=== PATIENT | female | born 1935 | race Caucasian/White ===

== ENCOUNTER → 2016-07-12 | Outpatient (CLI) | payer OTHER ==
[~2016-07-12] MED LIST: AMOX500T PO; ATOR-26 PO; CZR50 PO; GFNSR600 PO; GLIP2.5T11 PO; LSX40 PO; METF-384 PO; NITR0.4S SL; POTA-331 PO; TPRSR/100 PO; VNTHFA/IN INH
[2016-07-12 13:08] LABS: BLOOD UREA NITROGEN 17 mg/dl (7-18); BUN/CREATININE RATIO 17.1 (10-20); CALCIUM 9.2 mg/dl (8.5-10.1); CARBON DIOXIDE 27 mmol/L (21-32); CHLORIDE 105 mmol/L (98-107); CHOLESTEROL 130 mg/dl (0-200); CREATININE 0.97 mg/dl (0.60-1.20); GLUCOSE 138 mg/dl (70-99); POTASSIUM 4.3 mmol/L (3.5-5.1); SODIUM 143 mmol/L (136-145)
[2016-07-12 13:12] LABS: CHOLESTEROL/HDL RATIO 1.9; HDL CHOLESTEROL 69 mg/dl; TRIGLYCERIDES 61 mg/dl (0-150); VERY LOW DENSITY LIPOPROT CALC 12 mg/dl
[2016-07-12 13:17] LABS: ESTIMATED AVERAGE GLUCOSE 137 mg/dl; HA1C FLAG Normal (Normal)
== END | disposition home or self-care (01) ==
LOC: C.LABSPEC 12:29
PROVIDERS: ATTEND Internal Medicine
DX: E11.9 Type 2 diabetes mellitus without complications (principal); I25.10 Atherosclerotic heart disease of native coronary artery without angina pectoris; E78.5 Hyperlipidemia, unspecified; I10 Essential (primary) hypertension

== ENCOUNTER → 2016-11-08 | Outpatient (CLI) | payer OTHER ==
[2016-11-08 14:01] LABS: BASO % 0.7 %; BASO ABS # 0.05 K/uL (0-0.2); COMPLETE YES; EOS % 4.9 %; HEMATOCRIT 47.6 % (37-47); LYMPH % 32.8 %; MEAN CELL VOLUME 96.4 fL (80-100); MEAN CORPUSCULAR HEMOGLOBIN 29.6 pg (25-34); MEAN CORPUSCULAR HGB CONC 30.7 g/dl (32-36); MONO % 6.7 %; NEUT % 54.9 %; PLATELET COUNT 149 K/uL (130-400); RED BLOOD COUNT 4.94 M/uL (4.2-5.4)
[2016-11-08 14:16] LABS: ESTIMATED AVERAGE GLUCOSE 137 mg/dl; HA1C FLAG Normal (Normal)
[2016-11-08 15:09] LABS: ALKALINE PHOSPHATASE 151 U/L (45-117); ALT/SGPT 25 U/L (12-78); AST/SGOT 18 U/L (15-37); BLOOD UREA NITROGEN 19 mg/dl (7-18); BUN/CREATININE RATIO 19.3 (10-20); CALCIUM 8.9 mg/dl (8.5-10.1); CARBON DIOXIDE 32 mmol/L (21-32); CHLORIDE 107 mmol/L (98-107); GLUCOSE 108 mg/dl (70-99); HDL CHOLESTEROL 52 mg/dl; POTASSIUM 4.5 mmol/L (3.5-5.1); SODIUM 146 mmol/L (136-145)
[2016-11-08 15:12] LABS: ALB/GLOB RATIO 1.1 (0.9-2); CHOLESTEROL 130 mg/dl (0-200); CHOLESTEROL/HDL RATIO 2.5; TRIGLYCERIDES 118 mg/dl (0-150); VERY LOW DENSITY LIPOPROT CALC 24 mg/dl
== END | disposition home or self-care (01) ==
LOC: C.LABSPEC 12:13
PROVIDERS: ATTEND Internal Medicine
DX: I25.10 Atherosclerotic heart disease of native coronary artery without angina pectoris (principal); I10 Essential (primary) hypertension; E78.5 Hyperlipidemia, unspecified; E11.9 Type 2 diabetes mellitus without complications

== ENCOUNTER 2017-01-10 11:44 | Inpatient (IN) | payer OTHER ==
[~2017-01-10] VITALS: Ht 160 cm; Wt 81.8 kg
[~2017-01-10 11:44] MED LIST changes: -AMOX500T PO; -GFNSR600 PO; -LSX40 PO; -VNTHFA/IN INH
[2017-01-10] MEDS ORDERED: NITROGLYCERIN 0.4 MG SL PER TAB CHARGE SL PRN (12:00)
[2017-01-10] MEDS ORDERED: ACETAMINOPHEN 500 MG TAB PO PRN (12:00)
[2017-01-10] MEDS ORDERED: GLUCOSE 40% GEL 15 GM TUBE PO PRN (12:30)
[2017-01-10] MEDS ORDERED: FUROSEMIDE INJ 40 MG in SYRINGE 0 ML IV ONE (12:30)
[2017-01-10] MEDS ORDERED: GLUCAGON FOR INJ 1 MG VIAL SQ PRN (12:30)
[2017-01-10] MEDS ORDERED: DEXTROSE 50% 50 ML SYR IV PRN (12:30)
[2017-01-10] MEDS ORDERED: GLUCOSE 10 TABS/TUBE PO PRN (12:30)
[2017-01-10] MEDS ORDERED: CEFTRIAXONE SOD INJ 2,000 MG in DEXTROSE 5% 50ML 50 ML IV ONE (12:30)
[2017-01-10] MEDS ORDERED: AZITHROMYCIN IV 500 MG in DEXTROSE 5% 250ML 250 ML IV ONE (13:00)
[2017-01-10 13:09] VITALS: BP 137/85; PULSE 81; TEMP 36.6; O2SAT 90; Ht 160 cm; Wt 81.8 kg
[2017-01-10 13:17] VITALS: BP 137/85; PULSE 81; TEMP 36.6; O2SAT 90
[2017-01-10 13:22] LABS: MEAN CELL VOLUME 94.1 fL (80-100); MEAN CORPUSCULAR HEMOGLOBIN 30.5 pg (25-34); MEAN PLATELET VOLUME 11.1 fL (7.4-10.4); PLATELET COUNT 114 K/uL (130-400); RED BLOOD COUNT 4.89 M/uL (4.2-5.4); WHITE BLOOD COUNT 9.12 K/uL (4.8-10.8)
[2017-01-10 13:34] LABS: MEAN CORPUSCULAR HGB CONC 32.4 g/dl (32-36)
[2017-01-10 13:40] LABS: BUN/CREATININE RATIO 20.9 (10-20); CALCIUM 9.1 mg/dl (8.5-10.1); POTASSIUM 4.2 mmol/L (3.5-5.1)
[2017-01-10 13:52] LABS: ALB/GLOB RATIO 1.2 (0.9-2); THYROID STIMULATING HORMONE 0.816 uIu/ml (0.300-4.500)
--- NOTE | 2017-01-10 14:27 | DIAGNOSTIC IMAGING REPORT ---
CHEST 2 VIEWS ROUTINE HISTORY: 81 years-old Female BRONCHOPNEUMONITIS COMPARISON: Portable chest radiograph 06/25/2014 TECHNIQUE: PA and lateral views of the chest. FINDINGS: Cardiac silhouette is again enlarged. There is atherosclerosis of the aorta. No pneumothorax, pleural effusion or evidence of overt pulmonary edema. Hazy bibasilar retrocardiac opacities are seen with areas of bronchial wall thickening. Degenerative changes are seen within the shoulders. Upper abdominal structures are unremarkable. IMPRESSION: 1. Cardiomegaly without overt pulmonary edema. 2. Hazy bibasilar opacities suggest atelectasis or chronic parenchymal changes with developing pneumonia also in the differential. No lobar airspace consolidation. The above report was generated using voice recognition software. It may contain grammatical, syntax or spelling errors. Electronically signed by: Dionisio Tenorio M.D. 01/10/2017 2:25 PM Dictated Date/Time: 01/10/2017 2:24 PM
[2017-01-10] MEDS: LEVALBUTEROL 1.25MG/3ML NEB INH SCH ×3 (15:00→18:53)
[2017-01-10 16:00] VITALS: O2SAT 90
[2017-01-10] MEDS: INSULIN ASPART 100 UNITS/ML 3 ML PEN SC SCH ×2 (16:30→20:42)
[2017-01-10 16:59] VITALS: BP 143/84; PULSE 72; TEMP 36.7; O2SAT 90
[2017-01-10] MEDS: FUROSEMIDE INJ 40 MG in SYRINGE 0 ML IV SCH (17:11)
--- NOTE | 2017-01-10 17:12 | History and Physical ---
History & Physical Date of Service Jan 10, 2017. History & Physical ADMISSION DATE: 01/10/2017 I just would like to point out that there is some confusion about the patient's last name. She has 2 records in the hospital one with a last name Bradly Boswell and the other one under [facility].Since 2009 her last name on her records in the office is Bradly. The same name is on her insurance card. CHIEF COMPLAINT: 81-year-old female admitted directly from my office with shortness of breath and bronchopneumonitis and suspected congestive heart failure. PRESENT ILLNESS: Patient with multiple medical problems including coronary artery disease. She is status post stenting of the mid LAD and OM one in 2012 and also stenting of her left main artery in 2014. Both times were done at [facility]. She also has arterial hypertension, hyperlipidemia, type 2 diabetes mellitus, chronic obstructive pulmonary disease, chronic respiratory failure and she uses oxygen at home at night only. She is using 2-3 L per minute. At one time she also required oxygen during the day. Patient was seen in the office today complaining of shortness of breath with cough and purulent sputum. She has not been feeling well for at least the last 2 weeks. Her symptoms have been progressing. She was more dyspneic. She did not have any fever or any chills. No earache or sore throat. No neck pain. No chest pain. She is dyspneic with minimal activity. She was producing thick yellow and green sputum. No hemoptysis. No nausea or vomiting. No diarrhea. No problem urinating. No pain in her back or extremities. Her oxygen saturation at rest in the office was 90%. She walked for only about 15 feet. I rechecked her oxygen saturation and it was down to 85%. Arrangements were made for admission directly from the office. PAST MEDICAL HISTORY: 1. Arterial hypertension. Long-standing. Treated. 2. She is a 2 para 2 3. Coronary artery disease. First diagnosed in 2002. She had a cardiac catheterization at [facility]. She had 80% stenosis of the mid LAD and 80% stenosis of the large marginal artery and total occlusion of her right coronary artery. She had 2 stents placed in her mid LAD and a large marginal. In June of 2014 she was admitted with acute congestive heart failure. She had a cardiac catheterization done here her. She had a 70% stenosis of her left main artery. Her mid left anterior descending artery stent was patent. She was transferred to [facility]. She had stent been off her left main artery stenosis. The stenosis was reduced to 15%. Since then she has done quite well. 4. Type 2 diabetes mellitus. On oral hypoglycemics. Well controlled. Her hemoglobin A1c in October was 6.4%. 5. Hyperlipidemia. Long-standing. Treated and controlled. 6. Chronic obstructive Comite disease. She smoked most of her adult life on 1918. She smoked at times over one pack per day. SOCIAL HISTORY: She is . She has 3 sons from her first marriage. No alcohol or. She stopped smoking back in 1989. No excessive coffee tea or soft drinks. 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 FAMILY HISTORY: Her mother at age 68. She had a massive CT. She was diabetic on insulin. Her father at age 82 also had a myocardial infarction and was diabetic. She had one brother and 2 sisters. Her brother in his 70s. She thinks that he may have heart disease. One sister at age 54 [address] Her children are all living. ALLERGIES: None CURRENT MEDICATIONS: 1. Metoprolol succinate 100 mg daily 2. Aspirin 81 mg daily 3. Atorvastatin 80 mg daily 4. Glipizide extended release 2.5 mg tablets she takes one half tablet daily 5. Plavix 75 mg daily 6. Furosemide 40 mg twice a day. Unfortunately she does not take it regularly especially when she's going out of the house. She skips at least 2 days a week. 7. Vitamin D 3 2000 international unit daily 8. ABC senior vitamin one daily 9. She uses oxygen at night 2-3 L per minute by nasal cannula REVIEW OF SYSTEMS: Overall she has been doing well. She denied any headache or dizziness.no earache sore throat or neck pain. No chest pain. She is markedly dyspneic. No nausea no vomiting. No problem with her bowel movements. No problem urinating. No pain in her back or extremities. She is feeling weak in general. Lack of energy. EXAMINATION: General : Well developed, well nourished, complaining of shortness of breath. Her recorded weight is 81.8 cavograms. Height 160 cm. BMI 32. Vital Signs : BP : 137/85 Pulse : 81 Temperature :36.6 respiration 19 oxygen saturation 90% on 2 L oxygen by nasal cannula Skin : Warm and dry. No Rash. HEENT :She was glasses. Edentulous upper gum. She only has [address] natural teeth in her lower gum. Poor condition. Neck : Supple. Nontender. No adenopathy. No thyromegaly. No JVD. Normal carotid pulses. No carotid bruit. Chest : Normal. Heart : Regular heart sounds. No murmur rub or gallop. PMI is not displaced. Lungs : bilateral rhonchi. Abdomen : Soft nontender. No organomegaly or masses. Active bowel sounds. No hernia. Back : No spinal or CVA tenderness. Extremities : bilateral leg edema. 2+.No clubbing or cyanosis. No joint or muscle tenderness. Good peripheral pulses. Neurological Examination : Alert and oriented. No evidence of any lateralized deficit. No cranial nerve abnormalities. ADMISSION LABORATORY TESTS: WBC count 9120, hemoglobin 14.9, hematocrit 46%, platelet count 114,000. Sodium 143, potassium 4.2, chloride 108, CO2 29, BUN 21, creatinine 1.0, glucose 101, calcium 9.1, magnesium 2.0, total bilirubin 1.1, AST 29, ALT 44, alkaline phosphatase 161, total protein 69, albumin 3.7, TSH 0.816, T4- 9.8. Her electrocardiogram showed a chronic right bundle branch block. Compared to prior electrocardiogram from her hospitalization in 2014 I did not see any changes. Her chest x-ray showed cardiomegaly a. Hazy opacities in the bases. Suggesting atelectasis or possibly developing pneumonia. ASSESSMENT: 1. Acute bronchopneumonitis 2. Respiratory failure. 3. Coronary artery disease with history of stenting of the mid LAD, OM 1, and left main. 4. Arterial hypertension 5. Hyperlipidemia 6. Type 2 diabetes mellitus 7. Chronic obstructive pulmonary disease 8. History of smoking. Stopped in 1989 9. Obesity 10.History of congestive heart failure.I suspect that she does have an element of congestive heart failure at this time. 11. Thrombocytopenia PLAN: Patient was admitted to a medical bed. Resuscitation level I. All her laboratory tests were ordered. Cultures were done. She was placed on a sliding scale coverage for her diabetes. She was placed on oxygen. Given high flow treatments with Xopenex. Started on IV Rocephin and Zithromax. Given IV Lasix. An echocardiogram was ordered. She was continued on her oral medications. Compression stockings ordered.she is on aspirin and Plavix. I did not add heparin. We'll monitor her fluid status closely. She may very well have to be on oxygen all the time. Once her acute illness is treated I will be checking a two-step test. Will be increasing her activity gradually. We'll decide if she needs any physical therapy or occupational therapy. That up to this point she has been doing well on her own at home. She has had a Pneumovax in the past. She also usually receives yearly influenza vaccination. Her condition and the plan of treatment were discussed with the patient and with her who was with her in the office.
[2017-01-10 18:16] LABS: URINE APPEARANCE CLEAR (CLEAR); URINE BILIRUBIN NEG (NEG); URINE COLOR YELLOW; URINE NITRITE NEG (NEG); URINE SPECIFIC GRAVITY 1.011 (1.000-1.030); UROBILINOGEN NEG (NEG)
[2017-01-10 18:19] LABS: MANUAL MICROSCOPIC REQUIRED? NO; REVIEW REQ? NO
[2017-01-10 18:53] VITALS: PULSE 84; O2SAT 95
[2017-01-10] MEDS: POTASSIUM CHLORIDE 20 MEQ TABCR PO SCH (20:41)
[2017-01-10 23:59] VITALS: BP 99/62; PULSE 70; TEMP 36.4; O2SAT 93
[2017-01-11] VITALS (7 sets, daily range): BP systolic 113–119; BP diastolic 69–77; PULSE 63–89; TEMP 36.3–36.5; O2SAT 90–95
[2017-01-11] MEDS: LEVALBUTEROL 1.25MG/3ML NEB INH SCH ×4 (02:01→19:34)
[2017-01-11 06:43] LABS: BASO % 0.3 %; BASO ABS # 0.03 K/uL (0-0.2); COMPLETE YES; EOS % 1.2 %; HEMATOCRIT 42.9 % (37-47); IG% 0.1 %; LYMPH % 19.7 %; LYMPH ABS # 1.81 K/uL (1.2-3.4); MEAN CELL VOLUME 93.7 fL (80-100); MEAN CORPUSCULAR HEMOGLOBIN 29.7 pg (25-34); MEAN CORPUSCULAR HGB CONC 31.7 g/dl (32-36); MEAN PLATELET VOLUME 10.1 fL (7.4-10.4); MONO % 5.8 %; NEUT % 72.9 %; PLATELET COUNT 111 K/uL (130-400); RED BLOOD COUNT 4.58 M/uL (4.2-5.4); WHITE BLOOD COUNT 9.18 K/uL (4.8-10.8)
[2017-01-11 07:11] LABS: BUN/CREATININE RATIO 18.2 (10-20); CALCIUM 8.7 mg/dl (8.5-10.1); CREATININE 1.3 mg/dl (0.60-1.20); POTASSIUM 3.6 mmol/L (3.5-5.1)
[2017-01-11] MEDS: INSULIN ASPART 100 UNITS/ML 3 ML PEN SC SCH ×4 (08:35→20:57)
[2017-01-11] MEDS: ASPIRIN 81 MG ECTAB PO SCH (08:36)
[2017-01-11] MEDS: POTASSIUM CHLORIDE 20 MEQ TABCR PO SCH ×2 (08:37→19:43)
[2017-01-11] MEDS: ATORVASTATIN 40 MG TAB PO SCH (08:37)
[2017-01-11] MEDS: CLOPIDOGREL BISULFATE 75 MG TAB PO SCH (08:38)
[2017-01-11] MEDS: METOPROLOL SUCC 50MG EXT REL TAB PO SCH (08:38)
[2017-01-11] MEDS: FUROSEMIDE INJ 40 MG in SYRINGE 0 ML IV SCH ×2 (08:40→17:22)
--- NOTE | 2017-01-11 08:48 | Clinical Documentation Query ---
Dr. [facility] : CLINICAL DOCUMENTATION QUERY Patient is an 81 year old female admitted for acute bronchopneumonitis possible CHF, unspecified. Documentation includes "chronic respiratory failure" and more generally "respiratory failure". As appropriate, consider clarification as suggested below to capture the acuity, severity of illness, risk of mortality, and accurate DRG assignment associated with this important clinical diagnosis. Thank you. In your clinical opinion is this patient being managed for: ( ) Acute on chronic hypoxic respiratory failure secondary to bronchopneumonitis and acute diastolic CHF ( ) Other explanation of clinical findings (Please Explain) ( ) Unable to determine (Please Define) ( ) Need to Discuss ( x ) Not Agree The medical record reflects the following clinical findings, treatment, and risk factors. Clinical Indicators: As above Treatment: IV antibiotics, IV Lasix Risk Factors: Age, COPD, smoking history, history of diastolic CHF Please clarify and document your clinical opinion in the progress notes and discharge summary. Terms such as "probable", "suspected", "likely", "questionable", "possible", or "still to be ruled out" are acceptable. IF IN AGREEMENT, YOU MUST DOCUMENT ABOVE DIAGNOSTIC STATEMENT IN DAILY PROGRESS NOTES AND DISCHARGE SUMMARY. This document is not part of the patient's record. Thank You, Addy Chilel, EMELYN [phone]
--- NOTE | 2017-01-11 11:40 | ECHOCARDIOGRAM REPORT ---
*NOTICE TO RECEIVING DEMOCRAT AGENCY This information is strictly Confidential and protected under [place] law. [place] law prohibits you from making any further disclosure of this information unless further disclosure is expressly permitted by the written consent of the person to whom it pertains or is authorized by law. A general authorization for the release of medical or other information is not sufficient for this purpose. Hospital accepts no responsibility if the information is made available to any other person, INCLUDING THE PATIENT. Interpretation Summary * Name: KALANI WETZEL Study Date: 01/10/2017 03:48 PM BP: 137/85 mmHg * Patient Location: .[id number]\S\E416\S\1 HR: 86 * : 1935 (M/d/yyyy) Gender: Female Height: 62 in * Age: 81 yrs Ethnicity: CA Weight: 180 lb * Ordering Physician: Thomas Maxwell * Referring Physician: Thomas Maxwell * Performed By: Jonathan Amzecua RCS * * Reason For Study: CHF * BSA: 1.8 m2 * -- Conclusions -- * Left ventricular systolic function is low normal. * No obvious wall motion abnormality. * Ejection Fraction = 50-55%. * Severe right sided chamber dilatation. * Evidence of right ventricular pressure overload. * Evidence of significant pulmonary hypertension. * Dilated inferior vena cava. Procedure Details * Left Ventricle The left ventricle is normal in size. There is normal left ventricular wall thickness. Ejection Fraction = 50-55%. Left ventricular systolic function is low normal. No obvious wall motion abnormality. Flattened septum is consistent with RV pressure overload. * Right Ventricle The right ventricular cavity size is enlarged (proximal parasternal long axis right ventricular outflow tract dimension >3.3 cm). Right ventricular function cannot be assessed due to poor image quality. * Atria The left atrium is mildly dilated. The right atrium is severely dilated. No ASD detected; PFO is not assessed. * Mitral Valve The mitral valve is grossly normal. There is no mitral valve stenosis. Significant mitral regurgitation is absent. * Tricuspid Valve The tricuspid valve is not well visualized, but is grossly normal. There is mild to moderate tricuspid regurgitation. Right ventricular systolic pressure is elevated at 50-60mmHg. * Aortic Valve The aortic valve is not well visualized. The aortic valve opens well. No hemodynamically significant valvular aortic stenosis. There is no significant aortic regurgitation. * Pulmonic Valve The pulmonic valve is not well visualized. * Great Vessels The aortic root is normal size. * Pericardium/Pleural There is no pericardial effusion. * Great Vessels Dilated inferior vena cava with reduced collapsability with sniff indicates an elevated right atrial pressure of 15 mmHg * Left Ventricular Diastolic Function Grade I diastolic dysfunction, (abnormal relaxation pattern). * * MMode 2D Measurements and Calculations * RVDd 6.7 cm * IVSd 0.84 cm * * LVIDd 4.3 cm * LVIDs 3.5 cm * LVPWd 0.99 cm * * IVS/LVPW 0.86 * FS 19.1 % * EDV(Teich) 83.2 ml * ESV(Teich) 50.2 ml * EF(Teich) 39.6 % * * EDV(cubed) 79.7 ml * ESV(cubed) 42.2 ml * EF(cubed) 47.0 % * * LV mass(C)d 126.2 grams * LV mass(C)dI 69.1 grams/m\S\2 * * SV(Teich) 33.0 ml * SI(Teich) 18.1 ml/m\S\2 * SV(cubed) 37.5 ml * SI(cubed) 20.5 ml/m\S\2 * * Ao root diam 2.8 cm * Ao root area 6.1 cm\S\2 * * LVOT diam 2.0 cm * LVOT area 3.1 cm\S\2 * * LVAd ap4 25.6 cm\S\2 * LVLd ap4 7.0 cm * EDV(MOD-sp4) 80.6 ml * EDV(sp4-el) 79.4 ml * LVAs ap4 17.2 cm\S\2 * LVLs ap4 5.8 cm * ESV(MOD-sp4) 45.9 ml * ESV(sp4-el) 43.0 ml * EF(MOD-sp4) 43.0 % * EF(sp4-el) 45.8 % * * LVAd ap2 18.8 cm\S\2 * LVLd ap2 6.2 cm * EDV(MOD-sp2) 49.0 ml * EDV(sp2-el) 48.8 ml * LVAs ap2 12.1 cm\S\2 * LVLs ap2 4.9 cm * ESV(MOD-sp2) 25.2 ml * ESV(sp2-el) 25.5 ml * EF(MOD-sp2) 48.7 % * EF(sp2-el) 47.7 % * * LVLd %diff -14.23 % * EDV(MOD-bp) 67.0 ml * LVLs %diff -18.70 % * ESV(MOD-bp) 36.2 ml * EF(MOD-bp) 45.9 % * * SV(MOD-sp4) 34.7 ml * SI(MOD-sp4) 19.0 ml/m\S\2 * * SV(MOD-sp2) 23.9 ml * SI(MOD-sp2) 13.1 ml/m\S\2 * * SV(MOD-bp) 30.7 ml * SI(MOD-bp) 16.8 ml/m\S\2 * * SV(sp4-el) 36.3 ml * SI(sp4-el) 19.9 ml/m\S\2 * * SV(sp2-el) 23.3 ml * SI(sp2-el) 12.7 ml/m\S\2 * * * Doppler Measurements and Calculations * MV E max cipriano 61.7 cm/sec * MV A max cipriano 95.3 cm/sec * * MV E/A 0.65 * * MV dec time 0.19 sec * * Ao V2 max 85.5 cm/sec * Ao max PG 2.9 mmHg * Ao max PG (full) 1.6 mmHg * CARA(V,A) 2.1 cm\S\2 * CARA(V,D) 2.1 cm\S\2 * * LV V1 max PG 1.3 mmHg * * LV V1 max 57.3 cm/sec * * TR max cipriano 314.3 cm/sec * * *
[2017-01-11] MEDS: CEFTRIAXONE SOD INJ 2,000 MG in DEXTROSE 5% 50ML 50 ML IV SCH (12:48)
[2017-01-11] MEDS: AZITHROMYCIN IV 500 MG in DEXTROSE 5% 250ML 250 ML IV SCH (14:06)
--- NOTE | 2017-01-11 20:45 | Progress Note ---
Progress Note Date of Service Jan 11, 2017. Progress Note 81-year-old female admitted with: Acute exacerbation of chronic obstructive pulmonary disease Acute bronchopneumonitis Coronary artery disease Mild congestive heart failure Type 2 diabetes mellitus Patient was admitted. She was started on IV Rocephin and Zithromax. Also given Xopenex high flow treatment. She was also given IV Lasix. Her condition has improved. She was able to sleep well last night. She is tolerating her diet without any problem. She denied any headache or dizziness or lightheadedness. Denies any chest pain. No shortness of breath at rest. She is using oxygen. No abdominal pain. No nausea no vomiting. Her leg edema has markedly decreased. EXAMINATION: GENERAL : Well developed. Well nourished. No acute distress. VITAL SIGNS ; Blood Pressure : 119/69 Pulse : 69 Temperature :36.3 Respiration 16 Oxygen Saturation 92% on 2 L oxygen by nasal cannula SKIN : Warm and dry. No rash. HEENT :No mucosal abnormalities NECK : Supple. No adenopathy. No thyromegaly. No JVD.. HEART: Regular heart tones with 2/6 systolic murmur. No rub no gallop LUNGS: decreased breath sounds. Minimal rhonchi. ABDOMEN: Soft nontender. No organomegaly or masses. EXTREMITIES : resolving leg edema. No clubbing or cyanosis. No joint or muscle tenderness. LABORATORY TESTS: WBC count 9118, hemoglobin 13.6, hematocrit 42.9, platelet count 111,000. Sodium 143, potassium 3.6, chloride 106, CO2 32, BUN 24, creatinine 1.3, calcium 8.7, glucose 128. One blood culture is reported to be growing gram-positive cocci. Given her clinical findings and condition we may very well be dealing with a contaminant. Echocardiogram showed a normal left ventricular systolic function. No wall motion abnormalities. Ejection fraction was 50-55%. Severe right-sided chamber dilatation. Right ventricular pressure overload. Pulmonary hypertension. ASSESSMENT: Acute exacerbation of chronic obstructive pulmonary disease Acute bronchopneumonitis Chronic respiratory insufficiency. Requiring oxygen. Coronary artery disease Type 2 diabetes mellitus Right-sided abnormalities as noted above on her echocardiogram PLAN: Continue her IV antibiotics I did decrease her Lasix dose. Mostly because of the slight increase in her BUN and creatinine We wait for the final report of her blood culture Physical therapy to ambulate with oxygen At home she has been using the oxygen at night. I suspected that she will need a 24 hours a day. Prior to her discharge I would order a two-step test. .
[2017-01-12] VITALS (7 sets, daily range): BP systolic 90–117; BP diastolic 55–72; PULSE 57–69; TEMP 36.5–36.6; O2SAT 92–95
[2017-01-12] MEDS: LEVALBUTEROL 1.25MG/3ML NEB INH SCH ×4 (02:40→18:58)
[2017-01-12] MEDS: INSULIN ASPART 100 UNITS/ML 3 ML PEN SC SCH ×5 (06:30→20:05)
[2017-01-12] MEDS: ATORVASTATIN 40 MG TAB PO SCH (08:50)
[2017-01-12] MEDS: ASPIRIN 81 MG ECTAB PO SCH (08:50)
[2017-01-12 08:51] LABS: BASO % 0.6 %; BASO ABS # 0.05 K/uL (0-0.2); COMPLETE YES; EOS % 2.4 %; HEMATOCRIT 44.8 % (37-47); IG% 0.1 %; LYMPH % 24.5 %; LYMPH ABS # 2.04 K/uL (1.2-3.4); MEAN CELL VOLUME 92.9 fL (80-100); MEAN CORPUSCULAR HEMOGLOBIN 30.1 pg (25-34); MEAN CORPUSCULAR HGB CONC 32.4 g/dl (32-36); MEAN PLATELET VOLUME 11.4 fL (7.4-10.4); MONO % 4.7 %; NEUT % 67.7 %; PLATELET COUNT 114 K/uL (130-400); RED BLOOD COUNT 4.82 M/uL (4.2-5.4); WHITE BLOOD COUNT 8.34 K/uL (4.8-10.8)
[2017-01-12] MEDS: METOPROLOL SUCC 50MG EXT REL TAB PO SCH (08:51)
[2017-01-12] MEDS: CLOPIDOGREL BISULFATE 75 MG TAB PO SCH (08:51)
[2017-01-12] MEDS: POTASSIUM CHLORIDE 20 MEQ TABCR PO SCH ×2 (08:52→20:03)
[2017-01-12] MEDS: FUROSEMIDE INJ 40 MG in SYRINGE 0 ML IV SCH ×2 (08:52→17:16)
[2017-01-12 09:22] LABS: BUN/CREATININE RATIO 20.6 (10-20); CREATININE 1.1 mg/dl (0.60-1.20); POTASSIUM 4.2 mmol/L (3.5-5.1)
[2017-01-12] MEDS: CEFTRIAXONE SOD INJ 2,000 MG in DEXTROSE 5% 50ML 50 ML IV SCH (12:54)
[2017-01-12] MEDS: AZITHROMYCIN IV 500 MG in DEXTROSE 5% 250ML 250 ML IV SCH (13:47)
--- NOTE | 2017-01-12 14:49 | Progress Note ---
Progress Note Date of Service Jan 12, 2017. Progress Note 81-year-old female admitted directly from the office with severe shortness of breath and acute exacerbation of her chronic lung disease. She did have a bronchopneumonitis. Her medical history is significant for type 2 diabetes mellitus, coronary artery disease, chronic obstructive pulmonary disease, hyperlipidemia, remote history of smoking. Patient was admitted. She was started on IV Zithromax and Rocephin. She was diuresed with IV Lasix. She was continued on her oxygen. She is on home oxygen at night he eats. She should be using oxygen during the day especially with activity but she has not been doing that. Her condition improved with her treatment. She seems to be resting comfortably. She has no headache or dizziness or lightheadedness. No chest pain. No shortness of breath at rest. Her cough is subsiding. Not bringing up any purulent sputum as she did on admission. No nausea no vomiting. No problem with her bowel movements. No problem urinating. EXAMINATION: General : Well developed. Well nourished. No distress. Vital Signs : Blood pnkprbon104/72, pulse 59, respiration 20, temperature 36.6, oxygen saturation 95% on 3 L oxygen by nasal cannula. Skin : Warm and dry. No rash. HEENT :Oxygen cannula in place. No mucosal abnormalities. Poor dentition. Neck : Supple. No adenopathy. No thyromegaly. No JVD. Normal carotid pulses. Heart : Regular heart sounds. 2/6 systolic murmur. No rub or gallop. PMI is not displaced. Lungs : decreased breath sounds. No wheezing no rhonchi. Abdomen : Soft nontender without any organomegaly or masses. Active bowel sounds Back : No spinal or CVA tenderness. Extremities: Minimal edema. Has markedly decreased. No clubbing no cyanosis. Today's laboratory tests: WBC count 8340, hemoglobin 14.5, hematocrit 44.8, platelet count 114,000. Sodium 140, potassium 4.2, chloride 103, CO2 29, BUN 23, creatinine 1.1, glucose 162, calcium 9.0. ASSESSMENT: * acute exacerbation of chronic obstructive pulmonary disease * Acute bronchopneumonitis * Right-sided congestive heart failure * Coronary artery disease * Arterial hypertension * Type 2 diabetes mellitus * Thrombocytopenia * Chronic respiratory failure PLAN: * Continue same medications * Continue physical therapy with ambulation with oxygen * Check a two-step test. The test was done early today. She does require oxygen at 2 L per minute by nasal cannula when she ambulates. Her oxygen saturation at rest is adequate. * if her condition remains stable I intend to send her home tomorrow.
[2017-01-12] MEDS ORDERED: LORAZEPAM 0.5 MG TAB SL STA (16:53)
[2017-01-12] MEDS: GUAIFENESIN 600 MG TABCR PO SCH (20:03)
[2017-01-13] MEDS: LEVALBUTEROL 1.25MG/3ML NEB INH SCH ×2 (01:59→07:09)
[2017-01-13 06:20] LABS: BASO % 0.6 %; BASO ABS # 0.04 K/uL (0-0.2); COMPLETE YES; EOS % 3.5 %; HEMATOCRIT 43.2 % (37-47); LYMPH % 28.4 %; LYMPH ABS # 1.88 K/uL (1.2-3.4); MEAN CELL VOLUME 94.3 fL (80-100); MEAN CORPUSCULAR HEMOGLOBIN 30.1 pg (25-34); MEAN CORPUSCULAR HGB CONC 31.9 g/dl (32-36); MEAN PLATELET VOLUME 10.8 fL (7.4-10.4); MONO % 7.7 %; NEUT % 59.8 %; PLATELET COUNT 115 K/uL (130-400); RED BLOOD COUNT 4.58 M/uL (4.2-5.4); WHITE BLOOD COUNT 6.62 K/uL (4.8-10.8)
[2017-01-13] MEDS: INSULIN ASPART 100 UNITS/ML 3 ML PEN SC SCH (06:30)
[2017-01-13 06:56] LABS: BUN/CREATININE RATIO 22.4 (10-20); CALCIUM 8.9 mg/dl (8.5-10.1); CREATININE 1.3 mg/dl (0.60-1.20); POTASSIUM 4.2 mmol/L (3.5-5.1)
[2017-01-13 07:09] VITALS: PULSE 66; O2SAT 94
[2017-01-13] MEDS ORDERED: GFNSR600 PO (07:48)
[2017-01-13] MEDS ORDERED: VNTHFA/IN INH (07:48)
[2017-01-13] MEDS ORDERED: AMOX500T PO (07:48)
[2017-01-13] MEDS ORDERED: LSX40 PO (07:48)
--- NOTE | 2017-01-13 07:52 | Discharge Instructions ---
Discharge Instructions Date of Service Jan 13, 2017. Admission Reason for Admission: Acute Exacerbation Of Copd Discharge Discharge Diagnosis / Problem: ACUTE BRONCHOPNEUMONITIS, EXACERBATION CHRONIC LUNG DISEASE,CORONARY ARTERY Discharge Goals Goal(s): Decrease discomfort, Improve function, Increase independence, Improve disease control, Improve nutritional status Activity Recommendations Activity Limitations: resume your previous activity . Instructions / Follow-Up Instructions / Follow-Up USE YOUR AXYGEN AT 2 LITERS/MINUTE WITH ANY ACTIVITY DR GORDON IN 7-10 DAYS Current Hospital Diet Patient's current hospital diet: Diabetes Type 2 Diet, AHA Diet (Heart Healthy) Discharge Diet Recommended Diet: AHA Diet (Heart Healthy), Diabetes Type 2 Diet Pending Studies Studies pending at discharge: no Laboratory Results Hemoglobin A1c Test 11/08/16 08:30 Range/Units Estimated Average Glucose 137 mg/dl Hemoglobin A1c 6.4 H 4.5-5.6 % Lipid Panel Test 11/08/16 08:30 Range/Units Triglycerides Level 118 0-150 mg/dl Cholesterol Level 130 0-200 mg/dl HDL Cholesterol 52 mg/dl LDL Cholesterol Direct 68 mg/dl Cholesterol/HDL Ratio 2.5 LDL Cholesterol, Calculated mg/dl Medical Emergencies . Who to Call and When: Medical Emergencies: If at any time you feel your situation is an emergency, please call 911 immediately. . Non-Emergent Contact Non-Emergency issues call your: Primary Care Provider . . "Provider Documentation" section prepared by Thomas Gordon. . VTE Core Measure Inpt VTE Proph given/why not?: Treatment not indicated
[2017-01-13] MEDS: CLOPIDOGREL BISULFATE 75 MG TAB PO SCH (07:56)
[2017-01-13] MEDS: ASPIRIN 81 MG ECTAB PO SCH (07:56)
[2017-01-13] MEDS: POTASSIUM CHLORIDE 20 MEQ TABCR PO SCH (07:56)
[2017-01-13] MEDS: ATORVASTATIN 40 MG TAB PO SCH (07:56)
[2017-01-13] MEDS: METOPROLOL SUCC 50MG EXT REL TAB PO SCH (07:57)
[2017-01-13 07:58] VITALS: BP 123/75; PULSE 74; TEMP 36.5; O2SAT 96
[2017-01-13] MEDS: FUROSEMIDE INJ 40 MG in SYRINGE 0 ML IV SCH (07:58)
[2017-01-13] MEDS: GUAIFENESIN 600 MG TABCR PO SCH (07:58)
[2017-01-13 08:04] VITALS: BP 123/75; PULSE 74; TEMP 36.5; O2SAT 96
--- NOTE | 2017-01-13 12:08 | Progress Note ---
Progress Note Date of Service Jan 13, 2017. Progress Note 81-year-old female admitted with multiple problems including: * Acute bronchopneumonitis * Acute exacerbation of chronic obstructive pulmonary disease * Right-sided heart failure * Chronic obstructive pulmonary disease * Coronary artery disease with history of stenting of multiple vessels including mid LAD, OM 1, and on a separate time her left main in 2014 * Arterial hypertension * Type 2 diabetes mellitus * Hyperlipidemia * chronic respiratory failure requiring home oxygen. patient was admitted. She was started on IV antibiotics with Zithromax and Rocephin. She was given high flow treatments with Xopenex. Her condition improved. She denied any headache or dizziness or lightheadedness. She is using her oxygen with adequate saturation. No chest pain. No shortness of breath. She still complaining of having phlegm in the back of her throat. No purulent secretions. No abdominal pain. No nausea or vomiting. The swelling in her legs has markedly improved. EXAMINATION: General : Well developed. Well nourished. No distress. Vital Signs : Blood pressure 123/75, pulse 74, respiration 18, temperature 36.5 , oxygen saturation 96% on 2 L oxygen by nasal cannula Skin : Warm and dry. No rash. HEENT :No mucosal abnormalities Neck : Supple. No adenopathy. No thyromegaly. No JVD. Heart : Regular heart sounds. No murmur rub or gallop. Lungs : Clear. .Decreased breath sounds. No wheezing or rhonchi. Abdomen : Soft nontender without any organomegaly or masses. . Back : No spinal or CVA tenderness. Extremities: Minimal edema of both ankles and lower legs. No clubbing no cyanosis. LABORATORY TESTS: WBC count 6620, hemoglobin 13.8, hematocrit 43.2, platelet count 115,000. Sodium 141, potassium 4.2, chloride 103, CO2 34, BUN 29, creatinine 1.3, glucose 100, calcium 8.9. ASSESSMENT: * acute bronchopneumonitis * Acute exacerbation of chronic obstructive pulmonary disease * Type 2 diabetes mellitus * Coronary artery disease * right-sided congestive heart failure * Hyperlipidemia * Chronic respiratory failure requiring oxygen mostly with activity. She also uses it at night. 2 L per minute. PLAN: * her condition has markedly improved * I discharge her home today. * Sent home on Augmentin, guaifenesin, albuterol inhaler. * She is to continue oxygen * She will continue all her other medications including the Lasix * I will see her back in the office in 7-10 days. She will call earlier if there is any problem
--- NOTE | 2017-01-22 16:33 | Discharge Summary ---
Discharge Summary Date of Service Jan 22, 2017. Discharge Summary ADMISSION DATE: 01/10/2017 DISCHARGE DATE: 01/13/2017 DISCHARGE DIAGNOSES: * acute bronchopneumonitis * Acute exacerbation of chronic obstructive pulmonary disease * Chronic obstructive pulmonary disease * Chronic respiratory failure requiring home oxygen at night and should be with activity. * right-sided congestive heart failure * Coronary artery disease * History of stenting of the mid LAD, OM1, and later on her left main. * Arterial hypertension * Hyperlipidemia * Type 2 diabetes mellitus * Obesity * History of congestive heart failure DISCHARGED MEDICATIONS: * Ventolin inhaler 2 puffs 4 times a day * Augmentin 500 mg 3 times a day for 7 days * Furosemide 40 mg twice daily * Mucinex extended release 600 mg twice a day * Lipitor 80 mg daily * Glipizide 2.5 mg daily * Losartan 50 mg daily * Metformin 1000 mg twice a day * Metoprolol succinate 100 mg daily * Potassium chloride 10 mEq daily * Nitrostat 0.4 mg sublingually if needed 81-year-old female admitted directly from the office with severe shortness of breath and respiratory failure. She was suspected of having a bronchopneumonitis with exacerbation of her chronic lung disease. Patient with multiple medical problems as noted above. She was seen in the office complaining of shortness of breath cough and purulent sputum. Her symptoms have been persistent for about 2 weeks. She was becoming more dyspneic. Feeling tired. She denied any fever. No chills. No earache or sore throat. No neck pain. She had no chest pain. She was complaining of shortness of breath with minimal activity. Her oxygen saturation in the office was 90% at rest and when she walked for a short distance was down to 85%. Her lesions were made for admission. Past medical history, social history, family history where all as noted on her admission history and physical ALLERGIES: None MEDICATIONS ON ADMISSION were as noted on her admission history and physical. Physical examination and admission laboratory tests were all as noted on her history and physical. HOSPITAL COURSE: Patient was admitted to medical bed. Resuscitation that were one. All her laboratory tests were ordered. Cultures were done. She was placed on sliding scale coverage for her diabetes. She was given oxygen. High flow treatments with Xopenex. Started on IV Rocephin and Zithromax. IV Lasix. Echocardiogram was ordered. Compression stockings were ordered. Her condition started to improve. She was tolerating her medications. She had a good appetite eats. She had no chest pain. No shortness of breath improved. She had no nausea or vomiting. She was able to be out of date. Her leg edema decreased. One blood culture grew Staphylococcus. Coagulase negative. Thought to be a contaminant. Urine culture was negative. Echocardiogram showed a left ventricular systolic function which was in the low- normal range. No wall motion abnormality. Ejection fraction was 50-55%. She had severe right-sided chamber dilatation. Evidence of right ventricular pressure overload. Significant pulmonary hypertension. The inferior vena cava was dilated. She continued to improve. She had no recurrent problem. Her cough subsided. She was tolerating her diet. Tolerating increased activity. Patient was encouraged to continue using her oxygen at night. But also to use her oxygen with physical activity. Followup in the office in one week.
== END 2017-01-13 08:51 | disposition home or self-care (01) | DRG 194 ==
LOC: C.4E 12:16
PROVIDERS: ADMIT Internal Medicine; ATTEND Internal Medicine
DX: J18.0 Bronchopneumonia, unspecified organism (principal); J44.1 Chronic obstructive pulmonary disease with (acute) exacerbation; J44.0 Chronic obstructive pulmonary disease with (acute) lower respiratory infection; J96.10 Chronic respiratory failure, unspecified whether with hypoxia or hypercapnia; D69.6 Thrombocytopenia, unspecified; I25.10 Atherosclerotic heart disease of native coronary artery without angina pectoris; I11.0 Hypertensive heart disease with heart failure; E66.9 Obesity, unspecified; E78.5 Hyperlipidemia, unspecified; I50.9 Heart failure, unspecified; Z95.5 Presence of coronary angioplasty implant and graft; Z87.891 Personal history of nicotine dependence; Z99.81 Dependence on supplemental oxygen; Z79.82 Long term (current) use of aspirin; Z79.02 Long term (current) use of antithrombotics/antiplatelets; Z79.84 Long term (current) use of oral hypoglycemic drugs; Z79.899 Other long term (current) drug therapy

== ENCOUNTER → 2017-03-07 | Outpatient (CLI) | payer OTHER ==
[~2017-03-07] MED LIST changes: +GFNSR600 PO; +LSX40 PO
[2017-03-07 13:14] LABS: BLOOD UREA NITROGEN 19 mg/dl (7-18); CALCIUM 9.4 mg/dl (8.5-10.1); CARBON DIOXIDE 30 mmol/L (21-32); CHLORIDE 103 mmol/L (98-107); CHOLESTEROL 115 mg/dl (0-200); CREATININE 0.95 mg/dl (0.60-1.20); GLUCOSE 108 mg/dl (70-99); POTASSIUM 3.9 mmol/L (3.5-5.1); SODIUM 140 mmol/L (136-145); TRIGLYCERIDES 99 mg/dl (0-150); VERY LOW DENSITY LIPOPROT CALC 20 mg/dl
[2017-03-07 13:17] LABS: HDL CHOLESTEROL 57 mg/dl
[2017-03-07 13:30] LABS: ESTIMATED AVERAGE GLUCOSE 137 mg/dl; HA1C FLAG Normal (Normal)
[2017-03-07 14:19] LABS: RATIO 360.9 mcg/mg (0-30.0)
== END | disposition home or self-care (01) ==
LOC: C.LABSPEC 12:33
PROVIDERS: ATTEND Internal Medicine
DX: E78.5 Hyperlipidemia, unspecified (principal); I10 Essential (primary) hypertension; E11.9 Type 2 diabetes mellitus without complications; I25.10 Atherosclerotic heart disease of native coronary artery without angina pectoris

== ENCOUNTER → 2017-07-22 | Outpatient (CLI) | payer OTHER ==
--- NOTE | 2017-07-22 11:07 | DIAGNOSTIC IMAGING REPORT ---
TWO VIEW CHEST CLINICAL HISTORY: Chronic respiratory failure. Dyspnea. FINDINGS: PA and lateral chest radiographs are compared to study dated 01/10/2017 and correlated with chest CT dated 06/23/2014. The heart is markedly enlarged and there is atherosclerotic calcification of the thoracic aorta. The pulmonary vasculature is noncongested. Chronic interstitial thickening similar to previous. There is bibasilar atelectasis. No airspace consolidation is seen typical for pneumonia and there is no pleural effusion. There is no pneumothorax. The skeletal structures are osteopenic. Degenerative change and hyperkyphosis are noted in the thoracic spine. A mild compression deformity is noted in the midthoracic region. IMPRESSION: Cardiomegaly and chronic parenchymal changes as above. No acute cardiopulmonary abnormality is identified. Electronically signed by: Abdirahman Ruiz M.D. 07/22/2017 11:06 AM Dictated Date/Time: 07/22/2017 11:04 AM
[2017-07-22 12:36] LABS: BASO % 0.9 %; BASO ABS # 0.05 K/uL (0-0.2); EOS % 2.7 %; EOS ABS # 0.15 K/uL (0-0.5); HEMATOCRIT 42.4 % (37-47); HEMOGLOBIN 13.1 g/dL (12.0-16.0); IG# 0.01 K/uL (0.00-0.02); LYMPH % 33.9 %; LYMPH ABS # 1.88 K/uL (1.2-3.4); MEAN CELL VOLUME 98.8 fL (80-100); MEAN CORPUSCULAR HEMOGLOBIN 30.5 pg (25-34); MEAN CORPUSCULAR HGB CONC 30.9 g/dl (32-36); MEAN PLATELET VOLUME 11.3 fL (7.4-10.4); MONO % 5.4 %; NEUT % 56.9 %; NEUT ABS # 3.15 K/uL (1.4-6.5); PLATELET COUNT 104 K/uL (130-400); RED CELL DISTRIBUTION WIDTH CV 16.3 % (11.5-14.5); RED CELL DISTRIBUTION WIDTH SD 58.9 fL (36.4-46.3); WHITE BLOOD COUNT 5.54 K/uL (4.8-10.8)
[2017-07-22 12:47] LABS: ALBUMIN 3.6 gm/dl (3.4-5.0); BLOOD UREA NITROGEN 21 mg/dl (7-18); CARBON DIOXIDE 33 mmol/L (21-32); CREATININE 1.05 mg/dl (0.60-1.20); GLUCOSE 102 mg/dl (70-99); POTASSIUM 4.3 mmol/L (3.5-5.1); SODIUM 140 mmol/L (136-145)
[2017-07-22 12:50] LABS: ALKALINE PHOSPHATASE 175 U/L (45-117); ALT/SGPT 21 U/L (12-78); AST/SGOT 20 U/L (15-37)
== END | disposition home or self-care (01) ==
LOC: C.RAD 10:30
PROVIDERS: ATTEND Internal Medicine
DX: J96.10 Chronic respiratory failure, unspecified whether with hypoxia or hypercapnia (principal); I25.10 Atherosclerotic heart disease of native coronary artery without angina pectoris; I51.7 Cardiomegaly

== ENCOUNTER → 2017-07-29 | Outpatient (CLI) | payer OTHER ==
[2017-07-29 18:21] LABS: BLOOD UREA NITROGEN 16 mg/dl (7-18); CALCIUM 8.9 mg/dl (8.5-10.1); CARBON DIOXIDE 27 mmol/L (21-32); CREATININE 0.67 mg/dl (0.60-1.20); GLUCOSE 109 mg/dl (70-99); POTASSIUM 3.5 mmol/L (3.5-5.1); SODIUM 133 mmol/L (136-145)
== END | disposition home or self-care (01) ==
LOC: C.LABSPEC 17:23
PROVIDERS: ATTEND Internal Medicine
DX: I50.9 Heart failure, unspecified (principal)

== ENCOUNTER → 2017-08-22 | Outpatient (CLI) | payer OTHER ==
[~2017-08-22] MED LIST changes: +BLOOD THINNER PO; +METO2.5T PO
[2017-08-22 13:40] LABS: HEMOGLOBIN A1C 7.2 % (4.5-5.6)
[2017-08-22 15:07] LABS: BLOOD UREA NITROGEN 74 mg/dl (7-18); CALCIUM 9.7 mg/dl (8.5-10.1); CARBON DIOXIDE 40 mmol/L (21-32); CHOLESTEROL 121 mg/dl (0-200); CREATININE 1.74 mg/dl (0.60-1.20); GLUCOSE 157 mg/dl (70-99); LDL CHOLESTEROL (DIRECT) 62 mg/dl; POTASSIUM 2.4 mmol/L (3.5-5.1); SODIUM 133 mmol/L (136-145)
== END | disposition home or self-care (01) ==
LOC: C.LABSPEC 12:41
PROVIDERS: ATTEND Internal Medicine
DX: E11.9 Type 2 diabetes mellitus without complications (principal); E78.5 Hyperlipidemia, unspecified; I25.10 Atherosclerotic heart disease of native coronary artery without angina pectoris; I50.9 Heart failure, unspecified

== ENCOUNTER 2017-08-24 12:50 | Inpatient (IN) | payer OTHER ==
[~2017-08-24] VITALS: Ht 160 cm; Wt 87.3 kg
[~2017-08-24 12:50] MED LIST changes: -BLOOD THINNER PO; -METO2.5T PO
[2017-08-24] MEDS ORDERED: METO2.5T PO (13:22)
[2017-08-24] MEDS ORDERED: BLOOD THINNER PO (13:25)
[2017-08-24] MEDS ORDERED: LACTATED RINGER'S 1000ML 1,000 ML IV STA (13:30)
[2017-08-24] MEDS ORDERED: ONDANSETRON INJ 2 MG/ML 2 ML VIAL IV STA (13:30)
[2017-08-24 13:43] LABS: BASO % 0.3 %; BASO ABS # 0.03 K/uL (0-0.2); EOS % 0.5 %; EOS ABS # 0.05 K/uL (0-0.5); HEMATOCRIT 45.7 % (37-47); HEMOGLOBIN 15.2 g/dL (12.0-16.0); IG# 0.03 K/uL (0.00-0.02); LYMPH % 18.2 %; LYMPH ABS # 1.94 K/uL (1.2-3.4); MEAN CELL VOLUME 92.7 fL (80-100); MEAN CORPUSCULAR HEMOGLOBIN 30.8 pg (25-34); MEAN CORPUSCULAR HGB CONC 33.3 g/dl (32-36); MEAN PLATELET VOLUME 11.3 fL (7.4-10.4); MONO % 6.4 %; MONO ABS # 0.68 K/uL (0.11-0.59); NEUT % 74.3 %; NEUT ABS # 7.93 K/uL (1.4-6.5); PLATELET COUNT 113 K/uL (130-400); RED CELL DISTRIBUTION WIDTH SD 50.8 fL (36.4-46.3); WHITE BLOOD COUNT 10.66 K/uL (4.8-10.8)
[2017-08-24] MEDS ORDERED: DILTIAZEM HCL 5 MG/ML 5 ML VIAL IV STA (13:56)
[2017-08-24] MEDS ORDERED: DILTIAZEM BOLUS / DRIP IV STA ×2 (13:56→17:24)
[2017-08-24 14:07] LABS: ALKALINE PHOSPHATASE 164 U/L (45-117); ALT/SGPT 25 U/L (12-78); AST/SGOT 28 U/L (15-37); BLOOD UREA NITROGEN 80 mg/dl (7-18); CALCIUM 10.5 mg/dl (8.5-10.1); CARBON DIOXIDE 35 mmol/L (21-32); CREATININE 1.72 mg/dl (0.60-1.20); GLUCOSE 166 mg/dl (70-99); LIPASE 358 U/L (73-393); POTASSIUM 4.5 mmol/L (3.5-5.1); SODIUM 133 mmol/L (136-145); TOTAL PROTEIN 8.3 gm/dl (6.4-8.2)
[2017-08-24] MEDS ORDERED: DILTIAZEM HCL INJ 125 MG in DEXTROSE 5% 100ML IV PRN (14:15)
[2017-08-24 14:19] LABS: INR 1.1 (0.9-1.1); PTT PATIENT 24.3 SECONDS (21.0-31.0)
[2017-08-24 14:22] LABS: CKMB 1.2 ng/ml (0.5-3.6)
--- NOTE | 2017-08-24 16:00 | DIAGNOSTIC IMAGING REPORT ---
ABD/PELVIS NO IV OR ORAL CONT CLINICAL HISTORY: 81 years-old Female presenting with lower and left abdominal pain, vomiting. TECHNIQUE: Multidetector CT of the abdomen and pelvis was performed without the use of intravenous contrast. IV contrast: None. A dose lowering technique was used consistent with the principles of ALARA (as low as reasonably achievable). COMPARISON: None. CT DOSE (mGy.cm): The estimated cumulative dose is 784.35 mGy.cm. FINDINGS: [employer] topogram: Cardiomegaly. Lung bases: Right anterior pneumothorax. Consolidation and bronchial wall thickening and subsegmental bronchial debris in the right middle lobe. Scattered subsegmental bronchial debris in the right lower lobe. Patchy dependent groundglass opacity in the right lower lobe. No significant interlobular septal thickening. Marked enlargement of the right atrium and right ventricle. Coronary artery calcification. Small moderate pericardial effusion. No pleural effusion. Liver: Normal morphology. Normal density. Biliary: No gross biliary ductal dilatation allowing for noncontrast technique. Focal coarse calcification in the gallbladder wall near the fundus. Few gallstones may be present near the fundus. Pancreas: Mild parenchymal atrophy. Spleen: Normal noncontrast appearance. Adrenal glands: Normal noncontrast appearance. Kidneys and ureters: Hypodensity in the right kidney likely cyst. No nephrolithiasis. No hydronephrosis. Normal ureters. Bladder: Incompletely evaluated secondary to underdistention. Pelvic organs: Normal noncontrast appearance. Bowel: Few scattered sigmoid colonic diverticula. No pericolonic inflammatory change. The appendix is normal. No bowel obstruction. Small hiatal hernia. Peritoneal cavity: Trace free fluid in the pelvis, which is somewhat unexpected in a postmenopausal female. No peritoneal nodularity. Lymph nodes: No gross lymphadenopathy allowing for noncontrast technique. Vasculature: Atherosclerosis of the normal caliber abdominal aorta. Abdominal wall: Fat-containing umbilical hernia with a focus of calcification likely indicating prior fat necrosis. Musculoskeletal: Degenerative changes of the spine. Osteopenia. Degenerative changes of the pubic symphysis. IMPRESSION: 1. Unexpected right anterior pneumothorax. Dedicated CT of the chest to be considered for further evaluation. 2. Consolidation in the right middle lobe, bronchial wall thickening in the right middle and lower lobes as well as subsegmental mucous plugging. This could suggest bronchopneumonia. Again, chest CT may be warranted. 3. No acute intra-abdominal pathology. 4. Trace free fluid in the pelvis is somewhat unexpected in a postmenopausal female, however, this may be physiologic or related to volume status. 5. Possible cholelithiasis. 6. Limited sigmoid diverticulosis. The report will be called/faxed according to standard departmental protocol. Electronically signed by: Efrain Araujo M.D. 08/24/2017 3:58 PM Dictated Date/Time: 08/24/2017 3:51 PM
--- NOTE | 2017-08-24 16:53 | DIAGNOSTIC IMAGING REPORT ---
(CHEST) THORAX WITHOUT CLINICAL HISTORY: 81 years-old Female presenting with eval right pneumo seen on abd CT. TECHNIQUE: Multidetector CT imaging of the chest was performed without the use of intravenous contrast. IV contrast: None. A dose lowering technique was used consistent with the principles of ALARA (as low as reasonably achievable). COMPARISON: 06/23/2014. CT DOSE (mGy.cm): The estimated cumulative dose is 484.30 mGy.cm. FINDINGS: [employer] topogram: Unremarkable. On soft tissue windows, normal thyroid and thoracic inlet. No axillary, supraclavicular, or mediastinal lymphadenopathy. Evaluation of the robin limited without intravenous contrast. Atherosclerosis of the aorta. Main pulmonary artery enlargement measuring 3.6 cm in transverse dimension. Multichamber enlargement of the heart. Coronary artery and aortic valve calcification. Small moderate pericardial effusion. No pleural effusion. Borderline hepatic steatosis. Small hiatal hernia. On lung windows, the previous cyst suggested pneumothorax was artifactual. However, extensive peribronchovascular and peripheral consolidation in the right lobe accompanied by extensive atelectasis. Multifocal subsegmental mucous plugging in the lower lobes, greater on the right. Central airways patent. On bone windows, degenerative changes of the spine. Osteopenia with exaggerated thoracic kyphosis. Compression deformity of T6. Old right rib fracture. IMPRESSION: 1. The previously suggested anterior pneumothorax on the right was artifactual. No pneumothorax. 2. Extensive peribronchovascular peripheral consolidation in the right lower lobe is likely chronic with cicatrizing atelectasis. 3. Extensive mucus plugging and subsegmental airways in the lower lobes greater on the right could suggest chronic aspiration. 4. Cardiomegaly with small pericardial effusion. 5. Main pulmonary artery enlargement suggests pulmonary hypertension. 6. Osteopenia with a compression fracture of T6, new since 2014. Correlate for point tenderness. Electronically signed by: Efrain Araujo M.D. 08/24/2017 4:52 PM Dictated Date/Time: 08/24/2017 4:44 PM
--- NOTE | 2017-08-24 17:22 | History and Physical ---
History & Physical Date & Time of Service: Aug 24, 2017 at 17:13 Chief Complaint: Abd Pain, Vomitting Primary Care Physician: Thomas Maxwell M.D. History of Present Illness Source: patient, hospital records 81 y/o F Hx CAD, HTN, HPL, DMII, right heart failure, COPD - dependent on 2L 02. Pt presents with nausea, vomiting and diarrhea x 4 days. She denies a fever or abdominal pain. She denies CP, a productive cough or SOB above baseline. On arrival to the ER she had a HR > 150 and AF was confirmed. She does not have a history of AF but does believe she has had palpitations recently. Initial labs are notable for PONCE and an elevated troponin. Clinical exam is consistent with dehydration. The pt was placed on IV Cardizem in the ER and has reverted to a sinus rhythm at the time of admission. Past Medical/Surgical History 1) COPD with chronic respiratory failure - dependent on 2L 02 2) Right-sided congestive heart failure - LVEF 50% 3) Coronary artery disease - stenting of the mid LAD, OM1, L main. 4) HTN 5) HPL 6) DM II 7) Pulmonary hypertension Family History No pertinent family history Social History Smoking Status: Former Smoker Drug Use: none Marital Status: Occupational Status: employed Allergies Coded Allergies: No Known Allergies (Unverified , NONE, 07/07/09) Home Medications Scheduled Atorvastatin (Lipitor), 80 MG PO DAILY Glipizide (Glipizide Er), 2.5 MG PO DAILY Metolazone (Zaroxolyn), 2.5 MG PO DAILY Metoprolol Succinate (Metoprolol Succinate ER), 50 MG PO DAILY [Blood Thinner], 1 TAB PO DAILY Scheduled PRN Nitroglycerin (Nitrostat), 0.4 MG SL DIRECTED PRN for Chest Pain Review of Systems Constitutional: No fever, No chills, No sweats Eyes: No worsening of vision ENT: No hearing loss, No nasal symptoms Respiratory: + shortness of breath, + dyspnea on exertion, + dyspnea at rest, No cough, No sputum, No wheezing Cardiovascular: + chest pain Abdomen: + nausea, + vomiting, + diarrhea, No pain, No constipation, No GI bleeding Musculoskeletal: No joint pain Genitourinary - Female: No dysuria, No urinary frequency, No urinary urgency Neurologic: + weakness (chronic), No memory loss, No paralysis Psychiatric: No depression symptoms Endocrine: No fatigue Hematologic / Lymphatic: No abnormal bleeding/bruising Integumentary: No rash Allergic / Immunologic: No environmental allergies Physical Exam Vital Signs Date Time Temp Pulse Resp B/P (MAP) Pulse Ox O2 Delivery O2 Flow Rate FiO2 08/24/17 16:50 105 16 104/73 95 Nasal Cannula 3.0 08/24/17 14:45 96 20 110/74 95 Nasal Cannula 3.0 08/24/17 14:21 94 16 93/74 95 Nasal Cannula 3.0 08/24/17 14:10 106 22 118/74 100 Nasal Cannula 3.0 08/24/17 13:58 152 08/24/17 12:55 36.4 73 22 102/78 98 Nasal Cannula 3.0 General Appearance: + pertinent finding (Overweight, humerous, elderly female in no ditress) Head: normocephalic Eyes: normal inspection ENT: pharynx normal, + pertinent finding (dry mucosal membranes - there is a bluish tint to the pt's lips) Neck: supple, no JVD Respiratory/Chest: chest non-tender, + pertinent finding (There are crackles at the R base and reduced air entry BL - wheezing is audible at the L anterior chest oddly) Abdomen/GI: normal bowel sounds, non tender, soft Back: normal inspection, no CVA tenderness Extremities/Musculoskelatal: + pertinent finding (Minimal edema, LEs are erythematous but do not display warmth or tenderness - there is good cap refill) Neurologic/Psych: intranet developer II-XII nml as tested, no motor/sensory deficits, alert, + disoriented (AAO x 2) Diagnostics Laboratory Results Results Past 24 Hours Test 08/24/17 13:30 08/24/17 13:50 Range/Units White Blood Count 10.66 4.8-10.8 K/uL Red Blood Count 4.93 4.2-5.4 M/uL Hemoglobin 15.2 12.0-16.0 g/dL Hematocrit 45.7 37-47 % Mean Corpuscular Volume 92.7 80-100 fL Mean Corpuscular Hemoglobin 30.8 25-34 pg Mean Corpuscular Hemoglobin Concent 33.3 32-36 g/dl Platelet Count 113 130-400 K/uL Mean Platelet Volume 11.3 7.4-10.4 fL Neutrophils (%) (Auto) 74.3 % Lymphocytes (%) (Auto) 18.2 % Monocytes (%) (Auto) 6.4 % Eosinophils (%) (Auto) 0.5 % Basophils (%) (Auto) 0.3 % Neutrophils # (Auto) 7.93 1.4-6.5 K/uL Lymphocytes # (Auto) 1.94 1.2-3.4 K/uL Monocytes # (Auto) 0.68 0.11-0.59 K/uL Eosinophils # (Auto) 0.05 0-0.5 K/uL Basophils # (Auto) 0.03 0-0.2 K/uL RDW Standard Deviation 50.8 36.4-46.3 fL RDW Coefficient of Variation 15.0 11.5-14.5 % Immature Granulocyte % (Auto) 0.3 % Immature Granulocyte # (Auto) 0.03 0.00-0.02 K/uL Prothrombin Time 11.4 9.0-12.0 SECONDS Prothromb Time International Ratio 1.1 0.9-1.1 Activated Partial Thromboplast Time 24.3 21.0-31.0 SECONDS Partial Thromboplastin Ratio 0.9 Sodium Level 133 136-145 mmol/L Potassium Level 4.5 3.5-5.1 mmol/L Chloride Level 90 98-107 mmol/L Carbon Dioxide Level 35 21-32 mmol/L Anion Gap 8.0 3-11 mmol/L Blood Urea Nitrogen 80 7-18 mg/dl Creatinine 1.72 0.60-1.20 mg/dl Estimated GFR () 31.5 Estimated GFR (Non- 27.2 BUN/Creatinine Ratio 46.3 10-20 Random Glucose 166 70-99 mg/dl Calcium Level 10.5 8.5-10.1 mg/dl Magnesium Level 2.5 1.8-2.4 mg/dl Total Bilirubin 1.0 0.2-1 mg/dl Direct Bilirubin 0.5 0-0.2 mg/dl Aspartate Amino Transf (AST/SGOT) 28 15-37 U/L Alanine Aminotransferase (ALT/SGPT) 25 12-78 U/L Alkaline Phosphatase 164 45-117 U/L Total Creatine Kinase 50 26-192 U/L Creatine Kinase MB 1.2 0.5-3.6 ng/ml Creatine Kinase MB Ratio 2.4 0-3.0 Troponin I 0.127 0-0.045 ng/ml Total Protein 8.3 6.4-8.2 gm/dl Albumin 4.0 3.4-5.0 gm/dl Lipase 358 73-393 U/L Urine Color YELLOW Urine Appearance CLEAR CLEAR Urine pH 7.0 4.5-7.5 Urine Specific [place] 1.012 1.000-1.030 Urine Protein 1+ NEG Urine Glucose (UA) NEG NEG Urine Ketones NEG NEG Urine Occult Blood NEG NEG Urine Nitrite NEG NEG Urine Bilirubin NEG NEG Urine Urobilinogen NEG NEG Urine Leukocyte Esterase TRACE NEG Urine WBC (Auto) 1-5 0-5 /hpf Urine RBC (Auto) 5-10 0-4 /hpf Urine Hyaline Casts (Auto) 1-5 0-5 /lpf Urine Epithelial Cells (Auto) >30 0-5 /lpf Urine Bacteria (Auto) NEG NEG Urine Renal Epithelial Cells 0-5 /lpf Diagnostic Radiology CT chest: 1. The previously suggested anterior pneumothorax on the right was artifactual. No pneumothorax. 2. Extensive peribronchovascular peripheral consolidation in the right lower lobe is likely chronic with cicatrizing atelectasis. 3. Extensive mucus plugging and subsegmental airways in the lower lobes greater on the right could suggest chronic aspiration. 4. Cardiomegaly with small pericardial effusion. 5. Main pulmonary artery enlargement suggests pulmonary hypertension. 6. Osteopenia with a compression fracture of T6, new since 2015. Correlate for point tenderness. CT abdomen: 1. Consolidation in the right middle lobe, bronchial wall thickening in the right middle and lower lobes as well as subsegmental mucous plugging. This could suggest bronchopneumonia. Again, chest CT may be warranted. 2. No acute intra-abdominal pathology. 3. Trace free fluid in the pelvis is somewhat unexpected in a postmenopausal female, however, this may be physiologic or related to volume status. 4. Possible cholelithiasis. 5. Limited sigmoid diverticulosis. EKG Initial EKG: AF, RVR, RBBB, LPFB, possible lat ischemia. Impression Assessment and Plan 81 y/o F Hx CAD, HTN, HPL, DMII, right heart failure, COPD - dependent on 2L 02. Pt presents with nausea, vomiting and diarrhea x 4 days. She denies a fever. She denies CP, a productive cough or SOB above baseline. On arrival to the ER she had a HR > 150 and AF was confirmed. She does not have a history of AF but does believe she has had palpitations recently. Initial labs are notable for PONCE and an elevated troponin. Clinical exam is consistent with dehydration. The pt was placed on IV Cardizem in the ER and has reverted to a sinus rhythm at the time of admission. 1) Nausea, vomiting, diarrhea - will treat with IVF and antiemetics - placed on a clear diet. Stool cultures and C diff toxin pending. 2) AF - new - pt has a high CHADs score and is anticoagulated with Heparin. She would likely be a candidate for Eliquis on DC but should be assessed for fall risk. Cont Metoprolol. 3) PONCE - due to dehydration - placed on IVF - will repeat BMP AM 4) CAD - Trop is elevated - may be due to AF and demand ischemia - she is anticoagulated regardless and is pending an echo and serial trops - we will cont her B mary and Statin. 5) 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 - mucous plugging is reported on CT and there is some concern for aspiration. She does not have respiratory complaints at present. I am not sure it would be helpful to assess for aspiration unless she becomes symptomatic or begins to develop pneumonias as the results may further complicate her care and affect her quality of life. She would benefit from f/u with a percussion welding machine operator. She does not normally receive breathing treatments which we will attempt to avoid considering her new AF. 6) CHF - R heart failure related to pulmonary HTN - clinically dehydrated with PONCE at present - provided with IVF and diuretics are held so that her volume status bears monitoring. Cont Bblocker. 7) DM II - placed on SS Full code - full dose Heparin Total time for this admit including review of labs, meds, imaging, records - discussion with pt and ER attending - 39 min Resuscitation Status VTE Prophylaxis Will order VTE Prophylaxis: Yes
[2017-08-24] MEDS ORDERED: ONDANSETRON INJ 2 MG/ML 2 ML VIAL IV PRN (17:30)
[2017-08-24] MEDS ORDERED: ALUMINUM/MAGNESIUM/SIMETH (MAALOX MAX) 30 ML UDC PO PRN (17:30)
[2017-08-24] MEDS ORDERED: MAGNESIUM HYDROXIDE SUSP 30 ML UDC PO PRN (17:30)
[2017-08-24] MEDS ORDERED: ACETAMINOPHEN 325 MG TAB PO PRN (17:30)
[2017-08-24] MEDS ORDERED: MoRPHine SULFATE 2 MG/ML CARP IV PRN (17:30)
[2017-08-24] MEDS ORDERED: GLUCAGON FOR INJ 1 MG VIAL SQ PRN (18:45)
[2017-08-24] MEDS ORDERED: DEXTROSE 50% 50 ML SYR IV PRN (18:45)
[2017-08-24] MEDS ORDERED: GLUCOSE 10 TABS/TUBE PO PRN (18:45)
[2017-08-24] MEDS ORDERED: GLUCOSE 40% GEL 15 GM TUBE PO PRN (18:45)
[2017-08-24 19:13] VITALS: BP 121/45; PULSE 123; TEMP 36.9; BMI 31.9
[2017-08-24] MEDS ORDERED: SODIUM CHLORIDE 0.9% 1000ML 1,000 ML IV SCH (19:30)
[2017-08-24] MEDS: DILTIAZEM HCL INJ 125 MG in DEXTROSE 5% 100ML IV PRN (19:39)
[2017-08-24] MEDS: INSULIN ASPART 100 UNITS/ML 3 ML PEN SC SCH (20:21)
--- NOTE | 2017-08-24 20:23 | EMERGENCY ROOM VISIT NOTE ---
History Report prepared by Andrew: Ganga Reardon Under the Supervision of: Dr. Douglas Salinas M.D. First contact with patient: 13:05 Chief Complaint: ABDOMINAL PAIN Stated Complaint: ABD PAIN, VOMITTING Nursing Triage Summary: Pt presents with . Pt states "burning in stomach" x 4 days, n/v/d, sob. History of Present Illness The patient is an 81 year old female who presents to the Emergency Room with complaints of persistent vomiting four days ago. She reports nausea. She reports lower and left-sided abdominal pains. She denies any similar symptoms in the past. She reports having diarrhea for four days as well. She notes the abdominal pains began before the diarrhea. She denies any history of diverticulitis or abdominal surgeries. She has a history of CAD and CHF. She denies any sick contacts. Pt denies headache, fevers, chills, diaphoresis, visual changes, neck pain, chest pain, breathing difficulties, back pain, melena , hematochezia, urinary symptoms, numbness, weakness, rash, or other complaints. Source of History: patient Onset: four days ago Position: other (global ) Quality: other (vomiting) Timing: other (persistent) Associated Symptoms: + nausea, + abdominal pain, + diarrhea Note: denies any sick contacts. Review of Systems See HPI for pertinent positives and negatives. A total of ten systems were reviewed and were otherwise negative. Past Medical & Surgical Medical Problems: (1) ACUTE BRONCHPEUMONITIS, RESP.FAILURE, CAD,CHF (2) ACUTE BRONCHPEUMONITIS, RESP.FAILURE, CAD,CHF (3) ACUTE CHF, CAD, DM2, ART. HTN (4) Atrial fibrillation with RVR (5) CAD (coronary artery disease) (6) DM (diabetes mellitus) (7) HTN (hypertension) Surgical Problems: (1) Stented coronary artery Family History No pertinent family history Social History Smoking Status: Former Smoker Smokeless Tobacco Use: No Alcohol Use: none Drug Use: none Marital Status: Housing Status: lives alone Occupation Status: unemployed Current/Historical Medications Scheduled Atorvastatin (Lipitor), 80 MG PO DAILY Glipizide (Glipizide Er), 2.5 MG PO DAILY Metolazone (Zaroxolyn), 2.5 MG PO DAILY Metoprolol Succinate (Metoprolol Succinate ER), 50 MG PO DAILY [Blood Thinner], 1 TAB PO DAILY Scheduled PRN Nitroglycerin (Nitrostat), 0.4 MG SL DIRECTED PRN for Chest Pain Allergies Coded Allergies: No Known Allergies (Unverified , NONE, 07/07/09) Physical Exam Vital Signs Date Time Temp Pulse Resp B/P (MAP) Pulse Ox O2 Delivery O2 Flow Rate FiO2 08/24/17 17:20 66 16 86/56 93 08/24/17 16:50 105 16 104/73 95 Nasal Cannula 3.0 08/24/17 14:45 96 20 110/74 95 Nasal Cannula 3.0 08/24/17 14:21 94 16 93/74 95 Nasal Cannula 3.0 08/24/17 14:10 106 22 118/74 100 Nasal Cannula 3.0 08/24/17 13:58 152 08/24/17 12:55 36.4 73 22 102/78 98 Nasal Cannula 3.0 Physical Exam GENERAL: Awake, alert, uncomfortable-appearing, in no distress HENT: Normocephalic, atraumatic. Oropharynx dry mucus membranes. EYES: Normal conjunctiva. Sclera non-icteric. NECK: Supple. No nuchal rigidity. FROM. No masses. RESPIRATORY: Clear to auscultation. No wheezes. CARDIAC: Normal rate. Normal rhythm. No murmurs. No rubs. Extremities warm and well perfused. Pulses equal. No JVD. GI: Soft, non-distended. Bilateral lower and left-sided abdominal tenderness. No rebound or guarding. No masses. RECTAL: Deferred. MUSCULOSKELETAL: Atraumatic. Chest examination reveals no tenderness. The back is symmetrical on inspection without obvious abnormality. There is no CVA tenderness to palpation. No joint edema. LOWER EXTREMITIES: Calves are equal size bilaterally and non-tender. Trace pedal edema. No discoloration. NEURO: Normal sensorium. No sensory or motor deficits noted. SKIN: No rash or jaundice noted. Chronic venous discoloration. Medical Decision & Procedures ER Provider Diagnostic Interpretation: Radiology results as stated below per my review and radiologist interpretation: ABD/PELVIS NO IV OR ORAL CONT CLINICAL HISTORY: 81 years-old Female presenting with lower and left abdominal pain, vomiting. TECHNIQUE: Multidetector CT of the abdomen and pelvis was performed without the use of intravenous contrast. IV contrast: None. A dose lowering technique was used consistent with the principles of ALARA (as low as reasonably achievable). COMPARISON: None. CT DOSE (mGy.cm): The estimated cumulative dose is 784.35 mGy.cm. FINDINGS: Culinary Assistant topogram: Cardiomegaly. Lung bases: Right anterior pneumothorax. Consolidation and bronchial wall thickening and subsegmental bronchial debris in the right middle lobe. Scattered subsegmental bronchial debris in the right lower lobe. Patchy dependent groundglass opacity in the right lower lobe. No significant interlobular septal thickening. Marked enlargement of the right atrium and right ventricle. Coronary artery calcification. Small moderate pericardial effusion. No pleural effusion. Liver: Normal morphology. Normal density. Biliary: No gross biliary ductal dilatation allowing for noncontrast technique. Focal coarse calcification in the gallbladder wall near the fundus. Few gallstones may be present near the fundus. Pancreas: Mild parenchymal atrophy. Spleen: Normal noncontrast appearance. Adrenal glands: Normal noncontrast appearance. Kidneys and ureters: Hypodensity in the right kidney likely cyst. No nephrolithiasis. No hydronephrosis. Normal ureters. Bladder: Incompletely evaluated secondary to underdistention. Pelvic organs: Normal noncontrast appearance. Bowel: Few scattered sigmoid colonic diverticula. No pericolonic inflammatory change. The appendix is normal. No bowel obstruction. Small hiatal hernia. Peritoneal cavity: Trace free fluid in the pelvis, which is somewhat unexpected in a postmenopausal female. No peritoneal nodularity. Lymph nodes: No gross lymphadenopathy allowing for noncontrast technique. Vasculature: Atherosclerosis of the normal caliber abdominal aorta. Abdominal wall: Fat-containing umbilical hernia with a focus of calcification likely indicating prior fat necrosis. Musculoskeletal: Degenerative changes of the spine. Osteopenia. Degenerative changes of the pubic symphysis. IMPRESSION: 1. Unexpected right anterior pneumothorax. Dedicated CT of the chest to be considered for further evaluation. 2. Consolidation in the right middle lobe, bronchial wall thickening in the right middle and lower lobes as well as subsegmental mucous plugging. This could suggest bronchopneumonia. Again, chest CT may be warranted. 3. No acute intra-abdominal pathology. 4. Trace free fluid in the pelvis is somewhat unexpected in a postmenopausal female, however, this may be physiologic or related to volume status. 5. Possible cholelithiasis. 6. Limited sigmoid diverticulosis. The report will be called/faxed according to standard departmental protocol. Electronically signed by: Efrain Araujo M.D. 08/24/2017 3:58 PM Dictated Date/Time: 08/24/2017 3:51 PM (CHEST) THORAX WITHOUT CLINICAL HISTORY: 81 years-old Female presenting with eval right pneumo seen on abd CT. TECHNIQUE: Multidetector CT imaging of the chest was performed without the use of intravenous contrast. IV contrast: None. A dose lowering technique was used consistent with the principles of ALARA (as low as reasonably achievable). COMPARISON: 06/23/2014. CT DOSE (mGy.cm): The estimated cumulative dose is 484.30 mGy.cm. FINDINGS: Culinary Assistant topogram: Unremarkable. On soft tissue windows, normal thyroid and thoracic inlet. No axillary, supraclavicular, or mediastinal lymphadenopathy. Evaluation of the robin limited without intravenous contrast. Atherosclerosis of the aorta. Main pulmonary artery enlargement measuring 3.6 cm in transverse dimension. Multichamber enlargement of the heart. Coronary artery and aortic valve calcification. Small moderate pericardial effusion. No pleural effusion. Borderline hepatic steatosis. Small hiatal hernia. On lung windows, the previous cyst suggested pneumothorax was artifactual. However, extensive peribronchovascular and peripheral consolidation in the right lobe accompanied by extensive atelectasis. Multifocal subsegmental mucous plugging in the lower lobes, greater on the right. Central airways patent. On bone windows, degenerative changes of the spine. Osteopenia with exaggerated thoracic kyphosis. Compression deformity of T6. Old right rib fracture. IMPRESSION: 1. The previously suggested anterior pneumothorax on the right was artifactual. No pneumothorax. 2. Extensive peribronchovascular peripheral consolidation in the right lower lobe is likely chronic with cicatrizing atelectasis. 3. Extensive mucus plugging and subsegmental airways in the lower lobes greater on the right could suggest chronic aspiration. 4. Cardiomegaly with small pericardial effusion. 5. Main pulmonary artery enlargement suggests pulmonary hypertension. 6. Osteopenia with a compression fracture of T6, new since 2014. Correlate for point tenderness. Electronically signed by: Efrain Araujo M.D. 08/24/2017 4:52 PM Dictated Date/Time: 08/24/2017 4:44 PM Laboratory Results 08/24/17 13:30 Red Blood Count 4.93, Mean Corpuscular Volume 92.7, Mean Corpuscular Hemoglobin 30.8, Mean Corpuscular Hemoglobin Concent 33.3, Mean Platelet Volume 11.3, Neutrophils (%) (Auto) 74.3, Lymphocytes (%) (Auto) 18.2, Monocytes (%) (Auto) 6.4, Eosinophils (%) (Auto) 0.5, Basophils (%) (Auto) 0.3, Neutrophils # (Auto) 7.93, Lymphocytes # (Auto) 1.94, Monocytes # (Auto) 0.68, Eosinophils # (Auto) 0.05, Basophils # (Auto) 0.03 08/24/17 13:30 Test 08/24/17 13:30 08/24/17 13:50 White Blood Count 10.66 K/uL (4.8-10.8) Red Blood Count 4.93 M/uL (4.2-5.4) Hemoglobin 15.2 g/dL (12.0-16.0) Hematocrit 45.7 % (37-47) Mean Corpuscular Volume 92.7 fL (80-100) Mean Corpuscular Hemoglobin 30.8 pg (25-34) Mean Corpuscular Hemoglobin Concent 33.3 g/dl (32-36) Platelet Count 113 K/uL (130-400) Mean Platelet Volume 11.3 fL (7.4-10.4) Neutrophils (%) (Auto) 74.3 % Lymphocytes (%) (Auto) 18.2 % Monocytes (%) (Auto) 6.4 % Eosinophils (%) (Auto) 0.5 % Basophils (%) (Auto) 0.3 % Neutrophils # (Auto) 7.93 K/uL (1.4-6.5) Lymphocytes # (Auto) 1.94 K/uL (1.2-3.4) Monocytes # (Auto) 0.68 K/uL (0.11-0.59) Eosinophils # (Auto) 0.05 K/uL (0-0.5) Basophils # (Auto) 0.03 K/uL (0-0.2) RDW Standard Deviation 50.8 fL (36.4-46.3) RDW Coefficient of Variation 15.0 % (11.5-14.5) Immature Granulocyte % (Auto) 0.3 % Immature Granulocyte # (Auto) 0.03 K/uL (0.00-0.02) Prothrombin Time 11.4 SECONDS (9.0-12.0) Prothromb Time International Ratio 1.1 (0.9-1.1) Activated Partial Thromboplast Time 24.3 SECONDS (21.0-31.0) Partial Thromboplastin Ratio 0.9 Anion Gap 8.0 mmol/L (3-11) Estimated GFR () 31.5 Estimated GFR (Non- 27.2 BUN/Creatinine Ratio 46.3 (10-20) Calcium Level 10.5 mg/dl (8.5-10.1) Magnesium Level 2.5 mg/dl (1.8-2.4) Total Bilirubin 1.0 mg/dl (0.2-1) Direct Bilirubin 0.5 mg/dl (0-0.2) Aspartate Amino Transf (AST/SGOT) 28 U/L (15-37) Alanine Aminotransferase (ALT/SGPT) 25 U/L (12-78) Alkaline Phosphatase 164 U/L (45-117) Total Creatine Kinase 50 U/L (26-192) Creatine Kinase MB 1.2 ng/ml (0.5-3.6) Creatine Kinase MB Ratio 2.4 (0-3.0) Troponin I 0.127 ng/ml (0-0.045) Total Protein 8.3 gm/dl (6.4-8.2) Albumin 4.0 gm/dl (3.4-5.0) Lipase 358 U/L (73-393) Urine Color YELLOW Urine Appearance CLEAR (CLEAR) Urine pH 7.0 (4.5-7.5) Urine Specific [place] 1.012 (1.000-1.030) Urine Protein 1+ (NEG) Urine Glucose (UA) NEG (NEG) Urine Ketones NEG (NEG) Urine Occult Blood NEG (NEG) Urine Nitrite NEG (NEG) Urine Bilirubin NEG (NEG) Urine Urobilinogen NEG (NEG) Urine Leukocyte Esterase TRACE (NEG) Urine WBC (Auto) 1-5 /hpf (0-5) Urine RBC (Auto) 5-10 /hpf (0-4) Urine Hyaline Casts (Auto) 1-5 /lpf (0-5) Urine Epithelial Cells (Auto) >30 /lpf (0-5) Urine Bacteria (Auto) NEG (NEG) Urine Renal Epithelial Cells /lpf (0-5) Laboratory results reviewed by me Medications Administered Medications (Trade) Dose Ordered Sig/Mayito Route Start Time Stop Time Status Last Admin Dose Admin Ondansetron HCl (Zofran Inj) 4 mg NOW STAT IV 08/24/17 13:30 08/24/17 13:31 DC 08/24/17 13:42 4 MG Lactated Ringer's 1,000 ml @ 100 mls/hr Q10H STAT IV 08/24/17 13:30 08/24/17 18:34 DC 08/24/17 13:42 100 MLS/HR Diltiazem HCl (Cardizem Inj) 10 mg NOW STAT IV 08/24/17 13:56 08/24/17 13:57 DC 08/24/17 14:05 10 MG Diltiazem HCl 125 mg/Dextrose 125 ml @ 0 mls/hr Q0M PRN IV 08/24/17 14:15 08/24/17 18:57 DC 08/24/17 14:12 5 MLS/HR ECG Per My Interpretation Indication: other (Change in heart rate) Rate (beats per minute): 149 Rhythm: atrial fibrillation, other (RVR) Findings: LPFB, Q waves (Inferior), RBBB, T-wave inversion (Lateral) Comparison ECG Date: Afib is new when compared to 01/10/2017 ED Course 1321: The patient was evaluated in room C10. A complete history and physical exam was performed. 1330: Ordered Lactated Ringer's 1,000 ml @ 100 mls/hr IV and Zofran 4 mg IV 1356: Ordered Diltiazem HCl 10 mg IV 1357: I reassessed the patient at this time. She feels the same, though is tachycardic. 1415: Ordered Diltiazem HCl 125 mg/Dextrose 125 ml @ 0 mls/hr IV 1431: I reassessed the patient at this time. Her rate has been controlled. Review of outpatient prior records showed the patient's potassium was 2.4 on August 22, 2017. 1635: I reassessed the patient at this time. She is resting. 1636: I spoke with Dr. Haynes, [facility] hospitalist. We discussed the patient's case. The patient will be evaluated by the [facility] for further management. 1638: I spoke with MIRNA Robbins for Dr. Vega. We discussed the patient's case. The patient will be further evaluated. 1645: I reassessed the patient at this time. I discussed the results and treatment plan with the patient. I answered all pertaining questions that she had. She expressed understanding and verbalized agreement. The patient will be further evaluated. 1502: I spoke with Dr. Vega, thoracic surgeon. The Chest CT does not reveal a pneumothorax. There appears to be an artifact. 1721: I reassessed the patient at this time. She is resting comfortably. Medical Decision Triage Nursing notes reviewed. The patient's presentation and history were concerning for nausea, vomiting, diarrhea and abdominal pain Etiologies such as dehydration, electrolyte abnormality, colitis,diverticulitis , obstruction, inflammatory bowel disease, renal colic, PUD, biliary pathology , pancreatitis, mesenteric ischemia, aortic pathology, infections, genitourinary , UTI, perforated viscus, appendicitis, as well as others were entertained. The patient was evaluated. She was given Zofran. She felt better with this. She was given gentle fluid hydration. The patient had some mild renal insufficiency and dehydration and chemistry panel. Her troponin was mildly elevated. She had a change in her heart rate and an ECG was performed and she was found to have developed rapid atrial fibrillation. The patient was started on Cardizem and was given a bolus and drip. This worked well to control her rate. CT imaging of the abdomen pelvis did not reveal any significant intra- abdominal abnormalities but radiology questioned a right-sided pneumothorax. A consult was placed with thoracic surgery. CT imaging of the chest was performed. This was thought to be artifactual. Radiology and thoracic surgery agreed. No intervention was necessary as the suspected pneumothorax was not found on chest CT. The patient was found to have broken out of atrial fibrillation and the Cardizem drip was stopped. Internal medicine evaluate the patient for admission. Her atrial fibrillation with RVR returned again and the drip was reinitiated. The patient was doing well with this. She was admitted for further management. Medication Reconcilliation Current Medication List: was personally reviewed by me Blood Pressure Screening Patient's blood pressure: Normal blood pressure Consults Time Called: 163 Consulting Physician: MIRNA Robbins for Dr. Vega Returned Call: 1638 I spoke with MIRNA Robbins for Dr. Vega. We discussed the patient's case. The patient will be further evaluated. Additional Consults: Time Called: 1636 Consulted Physician: JENNIFER Duenas hospitalist Additional Comments: I spoke with JENNIFER Duenas hospitalist. We discussed the patient's case. The patient will be evaluated by the [facility] for further management. Time Called: 1502 Consulted Physician: Dr. Vega, thoracic surgeon Additional Comments: I spoke with Dr. Vega, thoracic surgeon. The Chest CT does not reveal a pneumothorax. There appears to be an artifact. Impression Primary Impression: Dehydration Additional Impressions: Atrial fibrillation with RVR Elevated troponin Left sided abdominal pain Critical Care I have personally spent greater than 30 minutes of critical care time in the direct management of this patient. This includes bedside care, interpretation of diagnostic studies, and testing, discussion with consultants, patient, and family members, and other required patient management activities. This 30 minutes is in excess of all separately billable procedures. Scribe Attestation The scribe's documentation has been prepared under my direction and personally reviewed by me in its entirety. I confirm that the note above accurately reflects all work, treatment, procedures, and medical decision making performed by me. Departure Information Dispostion Being Evaluated By Hospitalist Referrals Thomas Maxwell M.D. (PCP) Patient Instructions My [facility] Problem Qualifiers
[2017-08-24] MEDS ORDERED: HEPARIN 25,000 UNIT/500ML D5W 500 ML IV PRN (20:45)
[2017-08-25] VITALS (10 sets, daily range): BP systolic 89–128; BP diastolic 58–80; PULSE 68–106; TEMP 36.5–37.3; O2SAT 90–96
[2017-08-25 03:14] LABS: HEMATOCRIT 45.5 % (37-47); HEMOGLOBIN 14.9 g/dL (12.0-16.0); MEAN CELL VOLUME 93.2 fL (80-100); MEAN CORPUSCULAR HEMOGLOBIN 30.5 pg (25-34); MEAN CORPUSCULAR HGB CONC 32.7 g/dl (32-36); MEAN PLATELET VOLUME 11.6 fL (7.4-10.4); PLATELET COUNT 108 K/uL (130-400); RED CELL DISTRIBUTION WIDTH SD 50.4 fL (36.4-46.3); WHITE BLOOD COUNT 8.82 K/uL (4.8-10.8)
[2017-08-25 03:32] LABS: PTT PATIENT 69.5 SECONDS (21.0-31.0)
[2017-08-25 03:33] LABS: CALCIUM 9.7 mg/dl (8.5-10.1); CREATININE 1.71 mg/dl (0.60-1.20); POTASSIUM 4.4 mmol/L (3.5-5.1)
[2017-08-25] MEDS: DILTIAZEM HCL INJ 125 MG in DEXTROSE 5% 100ML IV PRN (04:31)
[2017-08-25] MEDS: INSULIN ASPART 100 UNITS/ML 3 ML PEN SC SCH ×4 (07:00→20:52)
[2017-08-25] MEDS: METOPROLOL SUCC 50MG EXT REL TAB PO SCH (08:09)
[2017-08-25] MEDS: ATORVASTATIN 40 MG TAB PO SCH (08:09)
[2017-08-25] MEDS ORDERED: METOLAZONE 2.5 MG TAB PO SCH (09:00)
--- NOTE | 2017-08-25 13:04 | Progress Note ---
Subjective Date of Service: Aug 25, 2017. Subjective Pt evaluation today including: conversation w/ patient, conversation w/ family , physical exam, chart review, lab review, review of studies, review of inpatient medication list Sitting up in chair, eating lunch, pulse ox dropped to 8786% after eating lunch , refused to increase oxygen level, Problem List Medical Problems: (1) Dehydration Status: Acute (2) Elevated troponin Status: Acute (3) Left sided abdominal pain Status: Acute Review of Systems Constitutional: + weakness, + fatigue, No fever, No chills, No sweats, No weight loss, No problem reported Eyes: No worsening of vision, No eye pain, No redness, No discharge, No diplopia ENT: No hearing loss, No unusual epistaxis, No nasal symptoms, No sore throat, No tinnitus, No dental problems, No trouble swallowing Respiratory: + cough, + shortness of breath, No sputum, No wheezing, No dyspnea on exertion, No dyspnea at rest, No hemoptysis Cardiac: + edema, No chest pain, No orthopnea, No PND, No claudication, No palpitations Abdomen: No pain, No nausea, No vomiting, No diarrhea, No constipation Musculoskeletal: No joint pain, No muscle pain, No swelling, No calf pain Female : No dysuria, No urinary frequency, No hematuria, No incontinence, No abnormal vaginal bleeding, No vaginal discharge Neurologic: No memory loss, No paralysis, No weakness, No numbness/tingling, No vertigo, No balance problems Psychiatric: No depression symptoms, No anhedonism, No anxiety, No insomnia, No substance abuse Heme: No abnormal bleeding/bruising, No clotting problems, No swollen lymph nodes, No night sweats Endo: No fatigue, No excessive thirst, No excessive urination Skin: No rash, No itch, No new/changing skin lesions, No color change, No bleeding Objective Vital Signs Date Time Temp Pulse Resp B/P (MAP) Pulse Ox O2 Delivery O2 Flow Rate FiO2 08/25/17 12:00 36.5 90 20 128/80 (96) 90 Nasal Cannula 6.0 08/25/17 12:00 93 Nasal Cannula 6.0 08/25/17 08:00 93 Nasal Cannula 6.0 08/25/17 07:51 36.5 106 24 110/73 (85) 93 Nasal Cannula 6.0 08/25/17 04:01 107/65 (79) 08/25/17 04:00 Nasal Cannula 3.0 08/25/17 03:44 37.3 102 18 89/61 (70) 91 08/25/17 00:03 36.7 103 18 93/65 (74) 92 5.0 08/24/17 23:59 Nasal Cannula 3.0 08/24/17 19:13 36.9 123 22 121/45 Nasal Cannula 3.0 08/24/17 18:40 123 20 128/76 96 Nasal Cannula 08/24/17 17:39 67 17 104/64 92 Nasal Cannula 3.0 08/24/17 17:20 66 16 86/56 93 08/24/17 16:50 105 16 104/73 95 Nasal Cannula 3.0 08/24/17 14:45 96 20 110/74 95 Nasal Cannula 3.0 08/24/17 14:21 94 16 93/74 95 Nasal Cannula 3.0 08/24/17 14:10 106 22 118/74 100 Nasal Cannula 3.0 08/24/17 13:58 152 08/24/17 12:55 36.4 73 22 102/78 98 Nasal Cannula 3.0 Physical Exam General Appearance: WD/WN, no apparent distress, + obese Eyes: normal inspection, PERRL, EOMI, sclerae normal ENT: normal ENT inspection, hearing grossly normal, pharynx normal Neck: supple, no adenopathy, thyroid normal, no JVD, no carotid bruits, trachea midline Respiratory/Chest: chest non-tender, normal breath sounds, no respiratory distress, no accessory muscle use, + decreased breath sounds Cardiovascular: regular rate, rhythm, no gallop, no JVD, no murmur, + irregularly irregular, + pertinent finding (Trace edema,) Abdomen: normal bowel sounds, non tender, soft, no organomegaly, no pulsatile mass Extremities: normal range of motion, non-tender, normal inspection, no pedal edema, no calf tenderness, normal capillary refill, pelvis stable Neurologic/Psychiatric: 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 as tested, no motor/sensory deficits, alert, normal mood/affect, oriented x 3 Skin: normal color, warm/dry, no rash Lymphatic: no adenopathy Laboratory Results Last 24 Hours Test 08/24/17 13:30 08/24/17 13:50 08/24/17 19:09 3/7/18 20:54 White Blood Count 10.66 K/uL Red Blood Count 4.93 M/uL Hemoglobin 15.2 g/dL Hematocrit 45.7 % Mean Corpuscular Volume 92.7 fL Mean Corpuscular Hemoglobin 30.8 pg Mean Corpuscular Hemoglobin Concent 33.3 g/dl Platelet Count 113 K/uL Mean Platelet Volume 11.3 fL Neutrophils (%) (Auto) 74.3 % Lymphocytes (%) (Auto) 18.2 % Monocytes (%) (Auto) 6.4 % Eosinophils (%) (Auto) 0.5 % Basophils (%) (Auto) 0.3 % Neutrophils # (Auto) 7.93 K/uL Lymphocytes # (Auto) 1.94 K/uL Monocytes # (Auto) 0.68 K/uL Eosinophils # (Auto) 0.05 K/uL Basophils # (Auto) 0.03 K/uL RDW Standard Deviation 50.8 fL RDW Coefficient of Variation 15.0 % Immature Granulocyte % (Auto) 0.3 % Immature Granulocyte # (Auto) 0.03 K/uL Prothrombin Time 11.4 SECONDS Prothromb Time International Ratio 1.1 Activated Partial Thromboplast Time 24.3 SECONDS Partial Thromboplastin Ratio 0.9 Sodium Level 133 mmol/L Potassium Level 4.5 mmol/L Chloride Level 90 mmol/L Carbon Dioxide Level 35 mmol/L Anion Gap 8.0 mmol/L Blood Urea Nitrogen 80 mg/dl Creatinine 1.72 mg/dl Estimated GFR () 31.5 Estimated GFR (Non- 27.2 BUN/Creatinine Ratio 46.3 Random Glucose 166 mg/dl Calcium Level 10.5 mg/dl Magnesium Level 2.5 mg/dl Total Bilirubin 1.0 mg/dl Direct Bilirubin 0.5 mg/dl Aspartate Amino Transf (AST/SGOT) 28 U/L Alanine Aminotransferase (ALT/SGPT) 25 U/L Alkaline Phosphatase 164 U/L Total Creatine Kinase 50 U/L Creatine Kinase MB 1.2 ng/ml Creatine Kinase MB Ratio 2.4 Troponin I 0.127 ng/ml 0.141 ng/ml Total Protein 8.3 gm/dl Albumin 4.0 gm/dl Lipase 358 U/L Urine Color YELLOW Urine Appearance CLEAR Urine pH 7.0 Urine Specific Hudson 1.012 Urine Protein 1+ Urine Glucose (UA) NEG Urine Ketones NEG Urine Occult Blood NEG Urine Nitrite NEG Urine Bilirubin NEG Urine Urobilinogen NEG Urine Leukocyte Esterase TRACE Urine WBC (Auto) 1-5 /hpf Urine RBC (Auto) 5-10 /hpf Urine Hyaline Casts (Auto) 1-5 /lpf Urine Epithelial Cells (Auto) >30 /lpf Urine Bacteria (Auto) NEG Urine Renal Epithelial Cells /lpf Bedside Glucose 160 mg/dl Test 08/25/17 02:58 08/25/17 06:35 08/25/17 11:14 White Blood Count 8.82 K/uL Red Blood Count 4.88 M/uL Hemoglobin 14.9 g/dL Hematocrit 45.5 % Mean Corpuscular Volume 93.2 fL Mean Corpuscular Hemoglobin 30.5 pg Mean Corpuscular Hemoglobin Concent 32.7 g/dl RDW Standard Deviation 50.4 fL RDW Coefficient of Variation 15.0 % Platelet Count 108 K/uL Mean Platelet Volume 11.6 fL Activated Partial Thromboplast Time 69.5 SECONDS Partial Thromboplastin Ratio 2.7 Sodium Level 133 mmol/L Potassium Level 4.4 mmol/L Chloride Level 91 mmol/L Carbon Dioxide Level 33 mmol/L Anion Gap 9.0 mmol/L Blood Urea Nitrogen 76 mg/dl Creatinine 1.71 mg/dl Est Creatinine Clear Calc Drug Dose 25.7 ml/min Estimated GFR () 31.8 Estimated GFR (Non- 27.4 BUN/Creatinine Ratio 44.6 Random Glucose 171 mg/dl Calcium Level 9.7 mg/dl Magnesium Level 2.2 mg/dl Troponin I 0.141 ng/ml Bedside Glucose 182 mg/dl 178 mg/dl Assessment and Plan 81 y/o F admitted on August 24, 2017, nausea, vomiting and diarrhea x 4 days, and A. fib with rapid ventricular response, A. fib with rapid ventricular response, is new identified, no history of A. fib , improving is stable in Cardizem drip, will continue Cardizem drip and heparin drip, cardiology consultation, echo was done no report yet, probably will switch to oral Cardizem, anticoagulant, discussed with patient and patient's son Amos who is the power of sports attorney, about the risk and benefit blood thinner, such as bleeding from the fall, he agreed and will move forward, high CHADs score, would likely be a candidate for Eliquis on DC, Possible virus gastroenteritis, with nausea, vomiting, diarrhea upon admission, is doing better, no diarrhea today, has 1 bowel movement yesterday Continue supportive care, C. 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 - mucous plugging is reported on CT and there is some concern for aspiration, patient's oxygen to 87% was dropped when she up and eating in wheelchair, consult patient to have deep breathing, using incentive spirometry, will continue follow her oxygen level 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
--- NOTE | 2017-08-25 15:53 | Cardiology Consultation ---
Cardiology Consultation Date of Consultation: Aug 25, 2017. Requesting Physician: Dr. Velazco Reason for Consultation: Atrial fibrillation Pt evaluation today including: conversation w/ patient, physical exam, lab review, review of studies, review of inpatient medication list History of Present Illness This is an 81-year-old woman who has a history of diabetes mellitus, hypertension, coronary artery disease (identified at catheterization on June 25, 2014) as well as severe pulmonary hypertension. She has had stent placement at [facility] on 2 occasions by her recollection, not recently. She presents now with vomiting for 4 days, lower abdominal discomfort as well as diarrhea. She was not having chest symptoms, specifically not having palpitations, chest discomfort, etc. She is chronically on oxygen on arrival in the emergency room she was noted to be in atrial fibrillation with a rapid ventricular response. She was started on intravenous diltiazem and heparin and her rate has been better controlled. This morning she converted back to sinus rhythm with premature atrial beats. At the time of my evaluation she was feeling better, she was still short of breath and is wearing oxygen. She denies any type of chest discomfort. Past Medical/Surgical History (1) CAD (coronary artery disease) (2) HTN (hypertension) (3) DM (diabetes mellitus) (4) Stented coronary artery Family History No pertinent family history Social History Smoking Status: Former Smoker History of Alcohol Use: No Review of Systems Constitutional: No fever, No weight loss, No weakness Respiratory: + see HPI, + cough, + shortness of breath, No sputum, No wheezing , No dyspnea on exertion, No dyspnea at rest, No hemoptysis Cardiac: + see HPI, + edema, No chest pain, No orthopnea, No PND, No claudication, No palpitations Abdomen: + see HPI, + pain, + nausea, + vomiting, No diarrhea, No GI bleeding Female : No problem reported Neurologic: No paralysis, No weakness, No numbness/tingling, No balance problems Heme: No abnormal bleeding/bruising, No clotting problems Endo: No fatigue Skin: No problem reported All Other Systems: Reviewed and Negative Allergies Coded Allergies: No Known Allergies (Unverified , NONE, 07/07/09) Medications Current Inpatient Medications Medications (Trade) Dose Ordered Sig/Mayito Route Start Time Stop Time Status Last Admin Dose Admin Atorvastatin Calcium (Lipitor Tab) 80 mg DAILY PO 08/25/17 09:00 09/24/17 08:59 08/25/17 08:09 80 MG Metoprolol Succinate (Toprol Xl Tab) 50 mg DAILY PO 08/25/17 09:00 09/24/17 08:59 08/25/17 08:09 50 MG Acetaminophen (Tylenol Tab) 650 mg Q4H PRN PO 08/24/17 17:30 09/23/17 17:29 Al Hydrox/Mg Hydrox/Simethicone (Maalox Max Susp) 15 ml Q4H PRN PO 08/24/17 17:30 09/23/17 17:29 Magnesium Hydroxide (Milk Of Magnesia Susp) 30 ml Q12H PRN PO 08/24/17 17:30 09/23/17 17:29 Ondansetron HCl (Zofran Inj) 4 mg Q6H PRN IV 08/24/17 17:30 09/23/17 17:29 Morphine Sulfate (MoRPHine SULFATE INJ) 2 mg Q30M PRN IV 08/24/17 17:30 09/07/17 17:29 Polyethylene (Miralax Powder Packet) 17 gm DAILY PRN PO 08/24/17 17:30 09/23/17 17:29 Insulin Aspart (novoLOG ASPART) SLIDING SCALE G... ACHS SC 08/24/17 21:00 09/23/17 20:59 Glucose (Glucose 40% Gel) 15-30 GRAMS 15 GRAMS... UD PRN PO 08/24/17 18:45 09/23/17 18:44 Glucose (Glucose Chew Tab) 4-8 Tablets 4 Tabl... UD PRN PO 08/24/17 18:45 09/23/17 18:44 Dextrose (Dextrose 50% 50ML Syringe) 25-50ML OF 50% DW IV FOR... UD PRN IV 08/24/17 18:45 09/23/17 18:44 Glucagon (Glucagon Inj) 1 mg UD PRN SQ 08/24/17 18:45 09/23/17 18:44 Diltiazem HCl 125 mg/Dextrose 125 ml @ 0 mls/hr Q0M PRN IV 08/24/17 19:00 09/23/17 18:59 08/25/17 04:31 10 MLS/HR Heparin Sodium/ Dextrose 500 ml @ 23 mls/hr [id number] PRN IV 08/24/17 20:45 09/23/17 20:44 08/24/17 20:56 23 MLS/HR Physical Exam Vital Signs Past 12 Hours Date Time Temp Pulse Resp B/P (MAP) Pulse Ox O2 Delivery O2 Flow Rate FiO2 08/25/17 12:00 36.5 90 20 128/80 (96) 90 Nasal Cannula 6.0 08/25/17 12:00 93 Nasal Cannula 6.0 08/25/17 08:00 93 Nasal Cannula 6.0 08/25/17 07:51 36.5 106 24 110/73 (85) 93 Nasal Cannula 6.0 08/25/17 04:01 107/65 (79) 08/25/17 04:00 Nasal Cannula 3.0 08/25/17 03:44 37.3 102 18 89/61 (70) 91 Constitutional: General Apperance: heathly-appearing, overweight Level of Distress: NAD, moderate distress Psychiatric: Mental Status: active & alert Head: normocephalic Eyes: EOM: EOMI ENMT: normal ENT inspection, hearing grossly normal Neck: supple, no masses Lungs: Respiratory effort: no dyspnea Auscultation: decreased breath sounds, expiratory wheezing Cardiovascular: Heart Auscultation: no murmurs, no rubs, no gallops, irregular rate rhythm Peripheral Pulses: Bruits: none appreciated Abdomen: Bowel Sounds: normal Inspection & Palpation: soft, no tenderness, guarding & rebound, no masses Musculoskeletal: normal strength (5/5 throughout) Neurologic: Cranial Nerves: grossly intact Sensation: grossly intact Data Laboratory Results: Last 24 Hours Test 08/24/17 19:09 08/24/17 20:54 08/25/17 02:58 08/25/17 06:35 Bedside Glucose 160 mg/dl 182 mg/dl Troponin I 0.141 ng/ml 0.141 ng/ml White Blood Count 8.82 K/uL Red Blood Count 4.88 M/uL Hemoglobin 14.9 g/dL Hematocrit 45.5 % Mean Corpuscular Volume 93.2 fL Mean Corpuscular Hemoglobin 30.5 pg Mean Corpuscular Hemoglobin Concent 32.7 g/dl RDW Standard Deviation 50.4 fL RDW Coefficient of Variation 15.0 % Platelet Count 108 K/uL Mean Platelet Volume 11.6 fL Activated Partial Thromboplast Time 69.5 SECONDS Partial Thromboplastin Ratio 2.7 Sodium Level 133 mmol/L Potassium Level 4.4 mmol/L Chloride Level 91 mmol/L Carbon Dioxide Level 33 mmol/L Anion Gap 9.0 mmol/L Blood Urea Nitrogen 76 mg/dl Creatinine 1.71 mg/dl Est Creatinine Clear Calc Drug Dose 25.7 ml/min Estimated GFR () 31.8 Estimated GFR (Non- 27.4 BUN/Creatinine Ratio 44.6 Random Glucose 171 mg/dl Calcium Level 9.7 mg/dl Magnesium Level 2.2 mg/dl Test 08/25/17 11:14 Bedside Glucose 178 mg/dl Imaging: Echo pending EKG: Initial electrocardiogram show atrial flutter with rapid ventricular response, initially 2-1.. An electrocardiogram this afternoon shows sinus rhythm with frequent premature atrial beats, right bundle branch block. Telemetry reviewed: Initially atrial flutter with 2-1 AV conduction, then 41, then 3-1 overnight. Today her rhythm is more irregular but rate controlled, on electrocardiography this rhythm is sinus with frequent premature atrial beats. Assessment & Plan 1. Atrial flutter: Her presentation atrial flutter is evidently a new finding, she was initially treated with diltiazem with reasonable rate control. Over the long run she should probably treated with rate control medications (I would use oral diltiazem and try to avoid beta blockade if possible), additionally I agree she should be on anticoagulation and I would move toward an oral agent. I do not know how long she was in this arrhythmia, she was not aware of palpitations so the duration is not clear. It probably was not for a long time but could have been several days or longer. It may be difficult on exam to determine her rhythm since she now has a very irregular rhythm due to very frequent premature atrial beats. As long as the rate is controlled and she is on anticoagulation the distinction would not be important. 2. Abnormal cardiac enzymes: She has low-grade abnormal cardiac enzymes but I think this is consistent with demand ischemia from her known coronary artery disease and her rapid heart rate. 3. Coronary disease: She does not have symptoms of myocardial ischemia, but she did not in the past either. She does not have much to suggest active ischemia on her electrocardiogram and her enzymes are more in keeping with demand ischemia. I would not pursue further evaluation at this time. 4. Pulmonary hypertension: She has a history of pulmonary hypertension, she will have an echocardiogram which will be helpful with this. There is probably little that can be done however. Thank you for allowing me to participate in her care.
[2017-08-25] MEDS ORDERED: NURSING VERBAL MED ORDER ONE ×2 (16:00→20:30)
--- NOTE | 2017-08-25 18:21 | ECHOCARDIOGRAM REPORT ---
*NOTICE TO RECEIVING CONSTITUTION PARTY AGENCY This information is strictly Confidential and protected under [place] law. [place] law prohibits you from making any further disclosure of this information unless further disclosure is expressly permitted by the written consent of the person to whom it pertains or is authorized by law. A general authorization for the release of medical or other information is not sufficient for this purpose. Hospital accepts no responsibility if the information is made available to any other person, INCLUDING THE PATIENT. Interpretation Summary * Name: KALANI WETZEL Study Date: 08/25/2017 07:59 AM BP: 110/73 mmHg * Patient Location: [facility] HR: 106 * : 1935 (M/d/yyyy) Gender: Female Height: 62 in * Age: 81 yrs Ethnicity: [place] Weight: 180 lb * Ordering Physician: Michael Haynes * Referring Physician: Self, Referred * Performed By: Rosemary Santo RDCS * * Reason For Study: Elevated Troponin, Atrial Fibrillation * BSA: 1.8 m2 * Severe right ventricular dilatation. * Severe right ventricular systolic dysfunction. * Mildly reduced overall left ventricular systolic function. * Class 2 left ventricular diastolic dysfunction. * Cor pulmonale. * Mild left atrial dilatation. * Severe right atrial dilatation. * Severe tricuspid regurgitation. * Severe pulmonary hypertension. * Compared to an echocardiogram January 10, 2017 the reported severity of the tricuspid regurgitation has increased. However, there remains severe pulmonary hypertension. * -- Conclusions -- * Aortic valve sclerosis moderate, without significant aortic valvular stenosis. Procedure Details * A complete two-dimensional transthoracic echocardiogram was performed (2D, M-mode, Doppler and color flow Doppler). Left Ventricle * The left ventricle is normal in size. * There is normal left ventricular wall thickness. * Ejection Fraction = 50-55%. * Left ventricular systolic function is borderline reduced. * A full diastolic examination was done with clinical findings of Class II diastolic dysfunction. * There is borderline global hypokinesis of the left ventricle. * Flattened septum is consistent with RV pressure/volume overload. Right Ventricle * The right ventricle is severely dilated. * The right ventricular systolic function is reduced as assessed by tricuspid annular plane systolic excursion (TAPSE) (TAPSE <1.6 cm). * The right ventricular systolic function is severely reduced. Atria * The left atrium is mildly dilated. * The right atrium is severely dilated. Mitral Valve * There is mild to moderate mitral annular calcification. * There is no mitral valve stenosis. * There is mild mitral regurgitation. Tricuspid Valve * The tricuspid valve is normal. * There is no tricuspid stenosis. * There is severe tricuspid regurgitation. * Right ventricular systolic pressure is elevated at >60mmHg. Aortic Valve * The aortic valve is trileaflet. * Aortic valve sclerosis moderate, without significant aortic valvular stenosis. * No aortic regurgitation is present. Pulmonic Valve * The pulmonic valve is not well visualized. * There is no pulmonic valvular stenosis. * There is no significant pulmonary regurgitation. Great Vessels * The aortic root is normal size. Pericardium/Pleural * Small pericardial effusion. Great Vessels * Inferior vena cava poorly visualized. MMode 2D Measurements and Calculations IVSd 0.87 cm IVSs 1.2 cm LVIDd 3.9 cm LVIDs 2.9 cm LVPWd 0.94 cm LVPWs 1.5 cm IVS/LVPW 0.93 FS 25.9 % EDV(Teich) 65.1 ml ESV(Teich) 31.5 ml EF(Teich) 51.6 % EDV(cubed) 58.5 ml ESV(cubed) 23.7 ml EF(cubed) 59.4 % % IVS thick 33.7 % % LVPW thick 58.1 % LV mass(C)d 105.8 grams LV mass(C)dI 57.9 grams/m\S\2 LV mass(C)s 121.7 grams LV mass(C)sI 66.6 grams/m\S\2 SV(Teich) 33.6 ml SI(Teich) 18.4 ml/m\S\2 SV(cubed) 34.7 ml SI(cubed) 19.0 ml/m\S\2 Ao root diam 2.9 cm Ao root area 6.7 cm\S\2 ACS 1.6 cm LA dimension 4.2 cm LA/Ao 1.4 LVAd ap4 14.8 cm\S\2 LVLd ap4 5.5 cm EDV(MOD-sp4) 34.4 ml EDV(sp4-el) 33.8 ml LVAs ap4 9.4 cm\S\2 LVLs ap4 4.8 cm ESV(MOD-sp4) 16.7 ml ESV(sp4-el) 15.4 ml EF(MOD-sp4) 51.6 % EF(sp4-el) 54.5 % LVAd ap2 12.2 cm\S\2 LVLd ap2 5.2 cm EDV(MOD-sp2) 24.7 ml EDV(sp2-el) 24.1 ml LVAs ap2 7.6 cm\S\2 LVLs ap2 4.4 cm ESV(MOD-sp2) 11.7 ml ESV(sp2-el) 11.3 ml EF(MOD-sp2) 52.7 % EF(sp2-el) 53.0 % LVLd %diff -5.11 % EDV(MOD-bp) 30.0 ml LVLs %diff -10.33 % ESV(MOD-bp) 14.3 ml EF(MOD-bp) 52.4 % SV(MOD-sp4) 17.8 ml SI(MOD-sp4) 9.7 ml/m\S\2 SV(MOD-sp2) 13.0 ml SI(MOD-sp2) 7.1 ml/m\S\2 SV(MOD-bp) 15.7 ml SI(MOD-bp) 8.6 ml/m\S\2 SV(sp4-el) 18.4 ml SI(sp4-el) 10.1 ml/m\S\2 SV(sp2-el) 12.8 ml SI(sp2-el) 7.0 ml/m\S\2 Doppler Measurements and Calculations MV E max cipriano 74.0 cm/sec MV A max cipriano 53.6 cm/sec MV E/A 1.4 MV dec time 0.21 sec Ao V2 max 86.0 cm/sec Ao max PG 3.0 mmHg Ao max PG (full) 1.6 mmHg LV V1 max PG 1.4 mmHg LV V1 max 59.3 cm/sec PA V2 max 78.3 cm/sec PA max PG 2.5 mmHg TR max cipriano 359.0 cm/sec
[2017-08-25] MEDS: APIXABAN 2.5 MG TAB PO SCH (19:36)
[2017-08-25] MEDS ORDERED: SODIUM CHLORIDE 0.65% NA SOLN 45 ML (OCEAN) PRN (20:45)
[2017-08-26] VITALS (15 sets, daily range): BP systolic 94–123; BP diastolic 55–88; PULSE 67–145; TEMP 36.7–37; O2SAT 88–97
[2017-08-26 06:06] LABS: HEMATOCRIT 43.7 % (37-47); HEMOGLOBIN 14.4 g/dL (12.0-16.0); MEAN CELL VOLUME 93.2 fL (80-100); MEAN CORPUSCULAR HEMOGLOBIN 30.7 pg (25-34); RED CELL DISTRIBUTION WIDTH SD 51.4 fL (36.4-46.3)
[2017-08-26 06:36] LABS: BASO % 0.2 %; BASO ABS # 0.02 K/uL (0-0.2); EOS % 0.3 %; EOS ABS # 0.03 K/uL (0-0.5); IG# 0.02 K/uL (0.00-0.02); LYMPH % 12.1 %; LYMPH ABS # 1.28 K/uL (1.2-3.4); MEAN PLATELET VOLUME 11.4 fL (7.4-10.4); MONO % 9.5 %; MONO ABS # 1.01 K/uL (0.11-0.59); NEUT % 77.7 %; NEUT ABS # 8.24 K/uL (1.4-6.5); PLATELET COUNT 96 K/uL (130-400)
[2017-08-26 06:38] LABS: CALCIUM 9.2 mg/dl (8.5-10.1); CREATININE 1.76 mg/dl (0.60-1.20); PHOSPHORUS 3.6 mg/dl (2.5-4.9); POTASSIUM 4.2 mmol/L (3.5-5.1)
[2017-08-26] MEDS ORDERED: NURSING VERBAL MED ORDER ONE ×2 (07:00→11:30)
[2017-08-26] MEDS: INSULIN ASPART 100 UNITS/ML 3 ML PEN SC SCH (07:00)
[2017-08-26] MEDS ORDERED: DILTIAZEM HCL 5 MG/ML 5 ML VIAL BOLUS/OMNI IV SCH (07:15)
[2017-08-26] MEDS: DILTIAZEM HCL INJ 125 MG in DEXTROSE 5% 100ML IV PRN ×3 (07:26→23:05)
[2017-08-26] MEDS: CALCIUM 600MG + VIT D 400 IU TAB PO SCH ×2 (07:56→19:33)
[2017-08-26] MEDS: APIXABAN 2.5 MG TAB PO SCH ×2 (07:56→19:33)
[2017-08-26] MEDS: ATORVASTATIN 40 MG TAB PO SCH (07:56)
[2017-08-26 08:06] LABS: CKMB 0.8 ng/ml (0.5-3.6)
--- NOTE | 2017-08-26 09:26 | Cardiology Follow-Up ---
Subjective Date of Service: Aug 26, 2017. Pt evaluation today including: conversation w/ patient, physical exam, lab review, review of studies, review of inpatient medication list History of Present Illness This is an 81-year-old woman who has a history of diabetes mellitus, hypertension, coronary artery disease (identified at catheterization on June 25, 2014) as well as severe pulmonary hypertension. She has had stent placement at [facility] on 2 occasions by her recollection, not recently. She presents now with vomiting for 4 days, lower abdominal discomfort as well as diarrhea. She was not having chest symptoms, specifically not having palpitations, chest discomfort, etc. She is chronically on oxygen on arrival in the emergency room she was noted to be in atrial fibrillation with a rapid ventricular response. She was started on intravenous diltiazem and heparin and her rate has been better controlled. By morning she converted back to sinus rhythm with premature atrial beats. On further discussion with her she uses a pulse oximeter at home, she notices from time to time that her heart rate is elevated (in the 115 bpm range) whereas most the time it is in the 70 bpm range. She is unaware of palpitations but has not been in the hospital either when we have documented atrial fibrillation. I suspect she has this at home and that this is not a new finding. She was in sinus rhythm until early this morning when she converted back to atrial fibrillation with a rapid heart rate and is back on diltiazem IV. She is unaware of the rhythm. She still has some difficulty with her breathing and some nasal congestion. Social History Smoking Status: Former Smoker History of Alcohol Use: No Review of Systems Respiratory: + see HPI, + cough, + shortness of breath, No sputum, No wheezing , No dyspnea on exertion, No dyspnea at rest, No hemoptysis Cardiac: + see HPI, + edema, No chest pain, No orthopnea, No PND, No claudication, No palpitations Medications Cardiovascular: Item Value Date Time Diltiazem HCl 125 125 ml @ 0 mls/hr 08/26/17 0715 mg/Dextrose .Q0M PRN/IV 08/26/17 0726 Apixaban 2.5 mg 08/25/17 1930 (Eliquis Tab) BID/PO 08/26/17 0756 Atorvastatin 80 mg 08/25/17 0900 Calcium DAILY/PO 08/26/17 0756 (Lipitor Tab) Metoprolol 50 mg 08/25/17 0900 Succinate DAILY/PO 08/25/17 0809 (Toprol Xl Tab) Objective Vital Signs Past 12 Hours Date Time Temp Pulse Resp B/P (MAP) Pulse Ox O2 Delivery O2 Flow Rate FiO2 08/26/17 07:54 105/64 (78) 95 Oxymask 6.0 08/26/17 07:46 36.9 145 22 94/69 (77) 97 Oxymask 7.0 08/26/17 04:17 36.7 67 20 104/55 (71) 95 Nasal Cannula 8.0 08/26/17 04:00 94 Oxymask 8.0 08/26/17 00:05 36.8 73 18 106/68 (81) 94 7.5 08/26/17 00:00 94 Oxymask 8.0 Last Recorded Weight-Kilograms: 81.000 Physical Exam Constitutional: General Apperance: heathly-appearing, overweight Level of Distress: NAD, moderate distress Lungs: Respiratory effort: no dyspnea Auscultation: decreased breath sounds, expiratory wheezing Cardiovascular: Heart Auscultation: no murmurs, no rubs, no gallops, irregular rate rhythm Peripheral Pulses: Bruits: none appreciated Data Laboratory Results: Last 24 Hours Test 08/25/17 11:14 08/25/17 16:02 08/25/17 20:16 08/26/17 05:51 Bedside Glucose 178 mg/dl 201 mg/dl 195 mg/dl White Blood Count 10.60 K/uL Red Blood Count 4.69 M/uL Hemoglobin 14.4 g/dL Hematocrit 43.7 % Mean Corpuscular Volume 93.2 fL Mean Corpuscular Hemoglobin 30.7 pg Mean Corpuscular Hemoglobin Concent 33.0 g/dl Platelet Count 96 K/uL Mean Platelet Volume 11.4 fL Neutrophils (%) (Auto) 77.7 % Lymphocytes (%) (Auto) 12.1 % Monocytes (%) (Auto) 9.5 % Eosinophils (%) (Auto) 0.3 % Basophils (%) (Auto) 0.2 % Neutrophils # (Auto) 8.24 K/uL Lymphocytes # (Auto) 1.28 K/uL Monocytes # (Auto) 1.01 K/uL Eosinophils # (Auto) 0.03 K/uL Basophils # (Auto) 0.02 K/uL RDW Standard Deviation 51.4 fL RDW Coefficient of Variation 15.0 % Immature Granulocyte % (Auto) 0.2 % Immature Granulocyte # (Auto) 0.02 K/uL Platelet Estimate DECREASED Large Platelets 1+ Acanthocytes 1+ Sodium Level 131 mmol/L Potassium Level 4.2 mmol/L Chloride Level 90 mmol/L Carbon Dioxide Level 34 mmol/L Anion Gap 7.0 mmol/L Blood Urea Nitrogen 72 mg/dl Creatinine 1.76 mg/dl Est Creatinine Clear Calc Drug Dose 24.8 ml/min Estimated GFR () 30.7 Estimated GFR (Non- 26.5 BUN/Creatinine Ratio 40.9 Random Glucose 151 mg/dl Calcium Level 9.2 mg/dl Phosphorus Level 3.6 mg/dl Magnesium Level 2.1 mg/dl Test 08/26/17 06:35 08/26/17 07:08 08/26/17 07:29 Bedside Glucose 159 mg/dl Creatine Kinase MB Ratio Creatine Kinase MB 0.8 ng/ml Troponin I 0.075 ng/ml Imaging: Echocardiography shows slightly reduced left ventricular function, some degree of diastolic dysfunction. Severe pulmonary hypertension and severe tricuspid regurgitation. Not significantly different from before. Telemetry reviewed: In sinus rhythm overnight, atrial fibrillation starting this morning with a rapid heart rate, heart rate now improved on intravenous diltiazem. Remains in atrial fibrillation. Assessment and Plan 1. Atrial flutter: Her presentation atrial flutter is a new diagnosis however I suspect she has had it before as noted in the HPI. She was initially treated with diltiazem with reasonable rate control. It quickly reverted to sinus rhythm, however this morning she has had recurrence of the arrhythmia, once again she is unaware of it. Over the long run she should probably treated with rate control medications (I would use oral diltiazem and try to avoid high dose beta blockade if possible), additionally I agree she should be on anticoagulation and agree with Kade. It may be difficult on exam in the future to determine her rhythm since she now has a very irregular rhythm due to very frequent premature atrial beats during sinus rhythm. As long as the rate is controlled and she is on anticoagulation the distinction would not be important. I am going to start oral diltiazem, she is also on metoprolol succinate 50 mg daily but I do not want to increase that dose. She may need digoxin as well. 2. Abnormal cardiac enzymes: She has low-grade abnormal cardiac enzymes but I think this is consistent with demand ischemia from her known coronary artery disease and her rapid heart rate. 3. Coronary disease: She does not have symptoms of myocardial ischemia, but she did not in the past either. She does not have much to suggest active ischemia on her electrocardiogram and her enzymes are more in keeping with demand ischemia. I would not pursue further evaluation at this time. 4. Pulmonary hypertension: She has a history of pulmonary hypertension, she has severe pulmonary hypertension and tricuspid regurgitation on her current echo but this is similar to before. There is probably little that can be done with this but no doubt it contributes to her edema. Thank you for allowing me to participate in her care.
[2017-08-26] MEDS: METOPROLOL SUCC 50MG EXT REL TAB PO SCH (09:33)
[2017-08-26] MEDS ORDERED: DILTIAZEM HCL 240 MG CAPCR PO STA (09:34)
--- NOTE | 2017-08-26 11:27 | DIAGNOSTIC IMAGING REPORT ---
(RENAL)RETROPERITON COMP HISTORY: Renal insufficiency acute kidney injury COMPARISON: None. FINDINGS: Right kidney: Maximum dimension 10.5 cm. No evidence for hydronephrosis. Normal corticomedullary differentiation and cortical thickness. Left kidney: Maximum dimension 10.4 cm. No evidence for hydronephrosis. Normal corticomedullary differentiation and cortical thickness. Bladder: No bladder wall thickening. The bilateral ureteral jets were identified. IMPRESSION: Normal renal ultrasound. The above report was generated using voice recognition software. It may contain grammatical, syntax or spelling errors. Electronically signed by: Aubrey Mayo M.D. 08/26/2017 11:26 AM Dictated Date/Time: 08/26/2017 11:25 AM
--- NOTE | 2017-08-26 15:09 | Progress Note ---
Subjective Date of Service: Aug 26, 2017. Subjective Pt evaluation today including: conversation w/ patient, conversation w/ family , physical exam, chart review, lab review, review of studies, conversation w/ market consultant, review of inpatient medication list pleasant , sitting up to a chair, heart rate controlled at 70s now, on oral Cardizem and Toprol, generalized weakness, eating voiding good, no other complaint, Problem List Medical Problems: (1) Dehydration Status: Acute (2) Elevated troponin Status: Acute (3) Left sided abdominal pain Status: Acute Review of Systems Constitutional: + weakness, + fatigue, No fever, No chills, No sweats, No weight loss, No problem reported Eyes: No worsening of vision, No eye pain, No redness, No discharge, No diplopia ENT: No hearing loss, No unusual epistaxis, No nasal symptoms, No sore throat, No tinnitus, No dental problems, No trouble swallowing Respiratory: No cough, No sputum, No wheezing, No shortness of breath, No dyspnea on exertion, No dyspnea at rest, No hemoptysis Cardiac: + edema (Trace to 1+ edema), No chest pain, No orthopnea, No PND, No claudication, No palpitations Abdomen: No pain, No nausea, No vomiting, No diarrhea, No constipation Musculoskeletal: No joint pain, No muscle pain, No swelling, No calf pain Female : No dysuria, No urinary frequency, No hematuria, No incontinence, No abnormal vaginal bleeding, No vaginal discharge Neurologic: No memory loss, No paralysis, No weakness, No numbness/tingling, No vertigo, No balance problems Psychiatric: No depression symptoms, No anhedonism, No anxiety, No insomnia, No substance abuse Heme: No abnormal bleeding/bruising, No clotting problems, No swollen lymph nodes, No night sweats Endo: No fatigue, No excessive thirst, No excessive urination Skin: No rash, No itch, No new/changing skin lesions, No color change, No bleeding Objective Vital Signs Date Time Temp Pulse Resp B/P (MAP) Pulse Ox O2 Delivery O2 Flow Rate FiO2 08/26/17 12:00 95 Oxymask 6.0 08/26/17 08:00 95 Oxymask 6.0 08/26/17 07:54 105/64 (78) 95 Oxymask 6.0 08/26/17 07:46 36.9 145 22 94/69 (77) 97 Oxymask 7.0 08/26/17 04:17 36.7 67 20 104/55 (71) 95 Nasal Cannula 8.0 08/26/17 04:00 94 Oxymask 8.0 08/26/17 00:05 36.8 73 18 106/68 (81) 94 7.5 08/26/17 00:00 94 Oxymask 8.0 08/25/17 20:00 96 Oxymask 8.0 08/25/17 19:03 37.0 77 22 107/59 (75) 96 Oxymask 8.0 08/25/17 16:00 93 Nasal Cannula 6.0 08/25/17 15:18 36.7 68 20 106/58 (74) 96 Oxymask 8.0 Physical Exam General Appearance: WD/WN, no apparent distress, + obese Eyes: normal inspection, PERRL, EOMI, sclerae normal ENT: normal ENT inspection, hearing grossly normal, pharynx normal Neck: supple, no adenopathy, thyroid normal, no JVD, no carotid bruits, trachea midline Respiratory/Chest: chest non-tender, normal breath sounds, no respiratory distress, no accessory muscle use, + decreased breath sounds Cardiovascular: no gallop, no JVD, no murmur, + irregularly irregular, + pertinent finding (Trace to 1+ edema) Abdomen: normal bowel sounds, non tender, soft, no organomegaly, no pulsatile mass Extremities: normal range of motion, non-tender, normal inspection, no pedal edema, no calf tenderness, normal capillary refill, pelvis stable Neurologic/Psychiatric: vendette II-XII nml as tested, no motor/sensory deficits, alert, normal mood/affect, oriented x 3 Skin: normal color, warm/dry, no rash Lymphatic: no adenopathy Laboratory Results Last 24 Hours Test 08/25/17 16:02 08/25/17 20:16 08/26/17 05:51 08/26/17 06:35 Bedside Glucose 201 mg/dl 195 mg/dl 159 mg/dl White Blood Count 10.60 K/uL Red Blood Count 4.69 M/uL Hemoglobin 14.4 g/dL Hematocrit 43.7 % Mean Corpuscular Volume 93.2 fL Mean Corpuscular Hemoglobin 30.7 pg Mean Corpuscular Hemoglobin Concent 33.0 g/dl Platelet Count 96 K/uL Mean Platelet Volume 11.4 fL Neutrophils (%) (Auto) 77.7 % Lymphocytes (%) (Auto) 12.1 % Monocytes (%) (Auto) 9.5 % Eosinophils (%) (Auto) 0.3 % Basophils (%) (Auto) 0.2 % Neutrophils # (Auto) 8.24 K/uL Lymphocytes # (Auto) 1.28 K/uL Monocytes # (Auto) 1.01 K/uL Eosinophils # (Auto) 0.03 K/uL Basophils # (Auto) 0.02 K/uL RDW Standard Deviation 51.4 fL RDW Coefficient of Variation 15.0 % Immature Granulocyte % (Auto) 0.2 % Immature Granulocyte # (Auto) 0.02 K/uL Platelet Estimate DECREASED Large Platelets 1+ Acanthocytes 1+ Sodium Level 131 mmol/L Potassium Level 4.2 mmol/L Chloride Level 90 mmol/L Carbon Dioxide Level 34 mmol/L Anion Gap 7.0 mmol/L Blood Urea Nitrogen 72 mg/dl Creatinine 1.76 mg/dl Est Creatinine Clear Calc Drug Dose 24.8 ml/min Estimated GFR () 30.7 Estimated GFR (Non- 26.5 BUN/Creatinine Ratio 40.9 Random Glucose 151 mg/dl Calcium Level 9.2 mg/dl Phosphorus Level 3.6 mg/dl Magnesium Level 2.1 mg/dl Test 08/26/17 07:08 08/26/17 07:29 08/26/17 11:22 Creatine Kinase MB Ratio Creatine Kinase MB 0.8 ng/ml Troponin I 0.075 ng/ml 25-Hydroxy Vitamin D Total 41.9 ng/ml Bedside Glucose 185 mg/dl Assessment and Plan 81 y/o F admitted on August 24, 2017, nausea, vomiting and diarrhea x 4 days, and A. fib with rapid ventricular response, A. fib with rapid ventricular response, is new identified, no history of A. 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 Possible virus gastroenteritis, with nausea, vomiting, diarrhea upon admission, is doing better, improvement resolved, tolerating clear liquid diet, was advised to type II diabetic diet Continue supportive care, C. 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 : We will watch and continue current care, avoid fluid overload Uncontrolled with A1c 7.2 of diabetic, patient declined using insulin because he is on allergy, patient can resume oral metformin upon discharge, need to be cautious because patient has an elevated creatinine, and the same time I encourage patient to discuss with PCP to start using insulin, Increase activities, PT OT, manager social work for discharge planning, discussed with patient's son and [id number] in bedside with the present outpatient, answered all questions, possible discharge date 1-2 Continued [facility] stay due to: multiple IV medications needed Discharge planning: home
[2017-08-26] MEDS ORDERED: GLIMEPIRIDE 2 MG TAB PO ONE (17:30)
[2017-08-26] MEDS ORDERED: DILTIAZEM BOLUS / DRIP IV STA (21:31)
[2017-08-26] MEDS ORDERED: DILTIAZEM HCL 5 MG/ML 5 ML VIAL ONE (21:47)
--- NOTE | 2017-08-26 22:01 | DIAGNOSTIC IMAGING REPORT ---
CHEST ONE VIEW PORTABLE CLINICAL HISTORY: Increasing hypoxia COMPARISON STUDY: Chest x-ray performed July 22, 2017 FINDINGS: The study is rotated. The heart is enlarged. There are no significant pleural effusions. There are nonspecific bibasilar opacities, likely atelectatic although an inflammatory process could appear similar[ IMPRESSION: 1. Rotated study 2. Cardiac enlargement with a globular configuration raising the possibility of a pericardial effusion 3. Increased bibasilar markings, atelectatic versus inflammatory Electronically signed by: Anson Galeas M.D. 08/26/2017 10:00 PM Dictated Date/Time: 08/26/2017 9:57 PM
[2017-08-27] VITALS (14 sets, daily range): BP systolic 91–110; BP diastolic 52–76; PULSE 74–109; TEMP 36.6–36.7; O2SAT 85–97
[2017-08-27] MEDS: DILTIAZEM HCL INJ 125 MG in DEXTROSE 5% 100ML IV PRN (04:47)
--- NOTE | 2017-08-27 07:02 | Progress Note ---
Progress Note Date of Service Aug 27, 2017. Progress Note Notifed by nursing overnight that patient had reverted back into Afib with RVR. Had been started on PO cardizem that morning and had been off the Cardizem drip the entire day Noted that BP was in the low 100s systolic Patient was being noted to have increasing oxy-mask requirement to maintain oxygen saturation Patient denies any discomfort EKG ordered Troponin ordered: negative CXR did not reveal and acute change such as consolidation or congestion Oxygenation recovered spontaneously with upright positioning Cardizem drip was re-started with noted improvement in heart rate. No further calls overnight, patient remained stable.
[2017-08-27] MEDS: APIXABAN 2.5 MG TAB PO SCH ×2 (07:24→19:42)
[2017-08-27] MEDS: CALCIUM 600MG + VIT D 400 IU TAB PO SCH ×2 (07:24→19:42)
[2017-08-27] MEDS: ATORVASTATIN 40 MG TAB PO SCH (07:24)
[2017-08-27] MEDS: METOPROLOL SUCC 50MG EXT REL TAB PO SCH (07:24)
[2017-08-27] MEDS ORDERED: DILTIAZEM HCL 240 MG CAPCR PO SCH (09:00)
[2017-08-27] MEDS ORDERED: GLIMEPIRIDE 2 MG TAB PO SCH (09:00)
--- NOTE | 2017-08-27 11:04 | Cardiology Follow-Up ---
Subjective Date of Service: Aug 27, 2017. Pt evaluation today including: conversation w/ patient, conversation w/ family , physical exam, lab review, review of studies, review of inpatient medication list History of Present Illness This is an 81-year-old woman who has a history of diabetes mellitus, hypertension, coronary artery disease (identified at catheterization on June 25, 2014) as well as severe pulmonary hypertension. She has had stent placement at [facility] on 2 occasions by her recollection, not recently. She presents now with vomiting for 4 days, lower abdominal discomfort as well as diarrhea. She was not having chest symptoms, specifically not having palpitations, chest discomfort, etc. She is chronically on oxygen on arrival in the emergency room she was noted to be in atrial fibrillation with a rapid ventricular response. She was started on intravenous diltiazem and heparin and her rate has been better controlled. By morning she converted back to sinus rhythm with premature atrial beats. On further discussion with her she uses a pulse oximeter at home, she notices from time to time that her heart rate is elevated (in the 115 bpm range) whereas most the time it is in the 70 bpm range. She is unaware of palpitations but has not been in the hospital either when we have documented atrial fibrillation. I suspect she has this at home and that this is not a new finding. During the night she converted back to atrial fibrillation with a rapid heart rate and is back on diltiazem IV. She remains unaware of the rhythm. She still has some difficulty with her breathing and some nasal congestion. Social History Smoking Status: Former Smoker History of Alcohol Use: No Review of Systems Respiratory: + shortness of breath, No cough, No sputum, No wheezing, No dyspnea on exertion, No dyspnea at rest, No hemoptysis Cardiac: + edema (Trace to 1+ edema), No chest pain, No orthopnea, No PND, No claudication, No palpitations Medications Cardiovascular: Item Value Date Time Diltiazem HCl 240 mg 08/27/17 0900 (Cardizem Cd Cap) QAM/PO 08/27/17 0725 Diltiazem HCl 125 125 ml @ 0 mls/hr 08/26/17 0715 mg/Dextrose .Q0M PRN/IV 08/27/17 0447 Apixaban 2.5 mg 08/25/17 1930 (Eliquis Tab) BID/PO 3/10/18 0724 Atorvastatin 80 mg 08/25/17 09 Calcium DAILY/PO 08/27/17723 (Lipitor Tab) Metoprolol 50 mg 08/25/17 0900 Succinate DAILY/PO 08/27/17723 (Toprol Xl Tab) Objective Vital Signs Past 12 Hours Date Time Temp Pulse Resp B/P (MAP) Pulse Ox O2 Delivery O2 Flow Rate FiO2 08/27/17 08:00 95 Oxymask 6.0 08/27/17 07:47 36.6 92 20 96/66 (76) 96 Oxymask 6.0 08/27/17 04:00 Oxymask 6.0 08/27/17 03:55 36.7 89 22 110/76 (87) 97 Oxymask 6.0 08/27/17 00:02 108 24 107/76 (86) 94 Oxymask 9.0 08/27/17 00:02 36.6 08/26/17 23:59 Oxymask 9.0 08/26/17 23:00 107 121/82 (95) Last Recorded Weight-Kilograms: 84.900 Physical Exam Constitutional: General Apperance: heathly-appearing, overweight Level of Distress: moderate distress Lungs: Respiratory effort: no dyspnea Auscultation: decreased breath sounds, expiratory wheezing Cardiovascular: Heart Auscultation: no murmurs, no rubs, no gallops, irregular rate rhythm Peripheral Pulses: Bruits: none appreciated Data Laboratory Results: Last 24 Hours Test 08/26/17 11:22 08/26/17 16:09 08/26/17 20:25 08/26/17 21:46 Bedside Glucose 185 mg/dl 222 mg/dl 153 mg/dl Troponin I 0.066 ng/ml Test 08/27/17 06:54 Bedside Glucose 150 mg/dl Telemetry reviewed: Converted to atrial fibrillation with rapid HR around 0530 this am, remains in it Assessment and Plan 1. Atrial flutter/fibrillation: Her presentation atrial flutter is a new diagnosis however I suspect she has had it before as noted in the HPI. She was initially treated with IV diltiazem with reasonable rate control. It quickly reverted to sinus rhythm, however she has had recurrence of the arrhythmia, once again she is unaware of it. Over the long run she should probably treated with rate control medications (I would use oral diltiazem and try to avoid high dose beta blockade if possible), additionally I agree she should be on anticoagulation and agree with Kade. It may be difficult on exam in the future to determine her rhythm since she has a very irregular rhythm due to very frequent premature atrial beats during sinus rhythm. As long as the rate is controlled and she is on anticoagulation the distinction would not be important. I am going to increase oral diltiazem, she is also on metoprolol succinate 50 mg daily but I do not want to increase that dose unless necessary. She may need digoxin as well. 2. Abnormal cardiac enzymes: She has low-grade abnormal cardiac enzymes but I think this is consistent with demand ischemia from her known coronary artery disease and her rapid heart rate. 3. Coronary disease: She does not have symptoms of myocardial ischemia, but she did not in the past either. She does not have much to suggest active ischemia on her electrocardiogram and her enzymes are more in keeping with demand ischemia. I would not pursue further evaluation at this time. 4. Pulmonary hypertension: She has a history of pulmonary hypertension, she has severe pulmonary hypertension and tricuspid regurgitation on her current echo but this is similar to before. There is probably little that can be done with this but no doubt it contributes to her edema. Thank you for allowing me to participate in her care.
[2017-08-27] MEDS ORDERED: DILTIAZEM HCL 120 MG CAPCR PO ONE (11:15)
--- NOTE | 2017-08-27 11:54 | Progress Note ---
Subjective Date of Service: Aug 27, 2017. Subjective Pt evaluation today including: conversation w/ patient Pt feeling overall improved. No further n/v/d. She had another episode of afib overnight and she felt unwell with this. This has resolved with return to NSR. Tolerating PO without issue. She is not SOB at rest, but is on a facemask as present which is not her baseline O2 use. No chest pain. Pt denies fever, abd pain, LE pain. Baseline LE swelling. Problem List Medical Problems: (1) Dehydration Status: Acute (2) Elevated troponin Status: Acute (3) Left sided abdominal pain Status: Acute Review of Systems All Other Systems: Reviewed and Negative Objective Vital Signs Date Time Temp Pulse Resp B/P (MAP) Pulse Ox O2 Delivery O2 Flow Rate FiO2 08/27/17 11:25 36.7 74 18 91/56 (68) 92 Oxymask 6.0 08/27/17 08:00 95 Oxymask 6.0 08/27/17 07:47 36.6 92 20 96/66 (76) 96 Oxymask 6.0 08/27/17 04:00 Oxymask 6.0 08/27/17 03:55 36.7 89 22 110/76 (87) 97 Oxymask 6.0 08/27/17 00:02 108 24 107/76 (86) 94 Oxymask 9.0 08/27/17 00:02 36.6 08/26/17 23:59 Oxymask 9.0 08/26/17 23:00 107 121/82 (95) 08/26/17 22:32 93 24 95/74 (81) 88 Oxymask 9.0 08/26/17 22:12 105 123/88 (100) 08/26/17 21:16 132 108/63 (78) 92 Oxymask 6.0 08/26/17 20:00 Oxymask 4.0 08/26/17 19:19 37.0 93 24 96/74 (81) 90 Oxymask 6.0 08/26/17 16:00 93 Oxymask 4.0 08/26/17 15:36 37.0 92 24 107/58 (74) 92 Oxymask 6.0 08/26/17 12:00 95 Oxymask 6.0 Physical Exam General Appearance: WD/WN, no apparent distress Eyes: normal inspection, sclerae normal Respiratory/Chest: normal breath sounds, no respiratory distress Cardiovascular: no edema, + pertinent finding (irregular rhythm, reg rate) Abdomen: non tender, soft Extremities: non-tender, + pedal edema (1+ pitting) Neurologic/Psychiatric: alert, normal mood/affect, oriented x 3 Skin: normal color, warm/dry Laboratory Results Last 24 Hours Test 08/26/17 16:09 08/26/17 20:25 08/26/17 21:46 08/27/17 06:54 Bedside Glucose 222 mg/dl 153 mg/dl 150 mg/dl Troponin I 0.066 ng/ml Test 08/27/17 11:10 Bedside Glucose 168 mg/dl Assessment and Plan 81 y/o F admitted on August 24, 2017, nausea, vomiting and diarrhea x 4 days and new onset afib with RVR Afib with RVR: no prior history of afib Initially improved s/p cardizem drip -> PO Cardizem, however with recurrence of afib overnight Cardiology has increased PO cardizem today and will monitor, may need digoxin as well. Cardiology would prefer to avoid increasing metoprolol dosing Continue with Eliquis Possible virus gastroenteritis: resolved and tolerating diet Continue supportive care, C. 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
[2017-08-27] MEDS ORDERED: ACETYLCYSTEINE 20% INHAL SOLN ***DISPENSED BY RESP. INH ONE (15:20)
[2017-08-27] MEDS ORDERED: ALBUT/IPRATROP 3MG/0.5MG NEB 3 ML VIAL INH SCH (16:00)
--- NOTE | 2017-08-27 16:11 | DIAGNOSTIC IMAGING REPORT ---
BILATERAL LOWER EXTREMITY VENOUS DOPPLER HISTORY: Acute bilateral lower extremity swelling rule out DVT COMPARISON STUDY: None. FINDINGS: RIGHT: There is normal compressibility, flow, and augmentation within the right lower extremity deep venous system. Occlusive echogenic thrombus involves the greater saphenous vein proximally. The greater saphenous vein confluence with the common femoral vein appears patent. Thrombus appears to measure at least 5 cm in length. LEFT: There is normal compressibility, flow, and augmentation within the left lower extremity deep venous system. IMPRESSION: 1. No sonographic evidence of deep venous thrombosis within the right or left lower extremity. 2. Occlusive superficial venous thrombus of the proximal aspect right greater saphenous vein measures at least 5 cm in length. The greater saphenous vein confluence with the common femoral vein is patent. Electronically signed by: Dionisio Tenorio M.D. 08/27/2017 4:10 PM Dictated Date/Time: 08/27/2017 4:05 PM
[2017-08-27 16:27] LABS: HEMATOCRIT 43.5 % (37-47); HEMOGLOBIN 14.6 g/dL (12.0-16.0); MEAN CELL VOLUME 92.9 fL (80-100); MEAN CORPUSCULAR HEMOGLOBIN 31.2 pg (25-34); MEAN PLATELET VOLUME 11.4 fL (7.4-10.4); PLATELET COUNT 112 K/uL (130-400); RED CELL DISTRIBUTION WIDTH CV 15.1 % (11.5-14.5); RED CELL DISTRIBUTION WIDTH SD 50.5 fL (36.4-46.3); WHITE BLOOD COUNT 12.48 K/uL (4.8-10.8)
[2017-08-27 16:28] LABS: MEAN CORPUSCULAR HGB CONC 33.6 g/dl (32-36)
[2017-08-27 17:01] LABS: CALCIUM 9.9 mg/dl (8.5-10.1); CREATININE 1.72 mg/dl (0.60-1.20); POTASSIUM 4.8 mmol/L (3.5-5.1)
[2017-08-27] MEDS: METHYLPREDNISOLONE IV 40 MG in SYRINGE 0 ML IV SCH (18:11)
[2017-08-27] MEDS ORDERED: ALBUT/IPRATROP 3MG/0.5MG NEB 3 ML VIAL INH PRN (19:30)
[2017-08-27] MEDS: ALBUT/IPRATROP 3MG/0.5MG NEB 3 ML VIAL INH SCH ×2 (19:59→23:39)
[2017-08-27] MEDS: ACETYLCYSTEINE 20% INHAL SOLN ***DISPENSED BY RESP. INH SCH (19:59)
[2017-08-27] MEDS ORDERED: TIOTROPIUM BROMIDE 5 PUFF/90 MCG INH INH ONE (20:00)
[2017-08-27] MEDS: GUAIFENESIN 600 MG TABCR PO SCH (20:16)
[2017-08-27] MEDS: FLUTICASONE/SALMETEROL 250/50 (ADVAIR) 14 PUFF/1 INHALER INH SCH (20:17)
[2017-08-27] MEDS ORDERED: GLIMEPIRIDE 2 MG TAB PO ONE (22:48)
[2017-08-28] VITALS (19 sets, daily range): BP systolic 92–120; BP diastolic 53–77; PULSE 78–113; TEMP 36.4–36.8; O2SAT 84–95
[2017-08-28] MEDS: METHYLPREDNISOLONE IV 40 MG in SYRINGE 0 ML IV SCH ×3 (01:52→21:20)
[2017-08-28] MEDS: ALBUT/IPRATROP 3MG/0.5MG NEB 3 ML VIAL INH SCH ×6 (03:14→23:51)
--- NOTE | 2017-08-28 07:08 | Progress Note ---
Progress Note Date of Service Aug 28, 2017. Progress Note Notified of elevated BSG in the context of anaphylaxis reported with insulin. Of note to daytime. Amaryl has been increased to BID.
[2017-08-28] MEDS: ACETYLCYSTEINE 20% INHAL SOLN ***DISPENSED BY RESP. INH SCH ×2 (07:12→19:23)
[2017-08-28] MEDS: CALCIUM 600MG + VIT D 400 IU TAB PO SCH ×2 (09:01→21:23)
[2017-08-28] MEDS: APIXABAN 2.5 MG TAB PO SCH ×2 (09:01→21:20)
[2017-08-28] MEDS: DILTIAZEM HCL 120 MG CAPCR PO SCH (09:01)
[2017-08-28] MEDS: ATORVASTATIN 40 MG TAB PO SCH (09:01)
[2017-08-28] MEDS: GUAIFENESIN 600 MG TABCR PO SCH ×2 (09:01→21:21)
[2017-08-28] MEDS: GLIMEPIRIDE 2 MG TAB PO SCH ×2 (09:01→21:22)
[2017-08-28] MEDS: METOPROLOL SUCC 50MG EXT REL TAB PO SCH (09:02)
[2017-08-28] MEDS: TIOTROPIUM BROMIDE 5 PUFF/90 MCG INH INH SCH (09:02)
[2017-08-28] MEDS: FLUTICASONE/SALMETEROL 250/50 (ADVAIR) 14 PUFF/1 INHALER INH SCH ×2 (09:02→21:20)
--- NOTE | 2017-08-28 09:54 | Surgery Consultation ---
Consultation Date of Service Aug 28, 2017. Chief Complaint Leg edema History of Present Illness The patient is a 81 year old female who was admitted with nausea and diarrhea. Has bilateral leg edema. An USN of the lower extremities showed superficial saphenous vein occlusion. She denies any leg pain. Denies any history of phlebitis. Vitals Vital Signs Past 12 Hours Date Time Temp Pulse Resp B/P (MAP) Pulse Ox O2 Delivery O2 Flow Rate FiO2 08/28/17 07:12 78 20 94 Mask 10.0 08/28/17 07:11 36.4 88 18 100/65 (77) 92 Oxymask 11.0 08/28/17 05:10 36.8 81 23 120/77 (91) 92 Oxymask 11.0 08/28/17 04:00 Oxymask 11.0 08/28/17 00:25 89 Oxymask 11.0 08/28/17 00:23 36.4 95 22 111/65 (80) 86 Oxymask 11.0 08/27/17 23:59 Oxymask 11.0 08/27/17 22:32 90 Oxymask 11.0 08/27/17 22:30 85 Oxymask 10.0 Allergies Coded Allergies: Insulin (Verified Allergy, Unknown, ANAPHYLAXIS, 08/26/17) Home Medications Scheduled Atorvastatin (Lipitor), 80 MG PO DAILY Glipizide (Glipizide Er), 2.5 MG PO DAILY Metolazone (Zaroxolyn), 2.5 MG PO DAILY Metoprolol Succinate (Metoprolol Succinate ER), 50 MG PO DAILY [Blood Thinner], 1 TAB PO DAILY Scheduled PRN Nitroglycerin (Nitrostat), 0.4 MG SL DIRECTED PRN for Chest Pain Problem List Medical Problems: (1) ACUTE BRONCHPEUMONITIS, RESP.FAILURE, CAD,CHF (2) ACUTE BRONCHPEUMONITIS, RESP.FAILURE, CAD,CHF (3) ACUTE CHF, CAD, DM2, ART. HTN (4) Atrial fibrillation with RVR (5) CAD (coronary artery disease) (6) DM (diabetes mellitus) (7) HTN (hypertension) Surgical Problems: (1) Stented coronary artery Surgical / Medical History Hx Cardiac Surgery: Yes (HEART CATH WITH STENTS) Hx Abdominal Surgery: No Hx Cancer Surgery: No Hx Thoracic Surgery: No Hx Orthopedic: No Hx Urinary Tract Surgery: No HX Other Surgery: No Past Medical/Surgical History: CHF, COPD, Diabetes, High Cholesterol, Hypertension, Other (pulm hypertension) Family History No pertinent family history Social History Smoking Status: Former Smoker Hx Tobacco Use In Past Year?: No Hx Alcohol Use - Type & Amnt: No Hx Substance Use -Type & Amnt: No Review of Systems Respiratory: No cough, No cyanosis, No CHRISTIANSON, No hemoptysis, No orthopnea, No PND , No short of breath, No sputum production, No stridor, No wheezing, No dyspnea , No problem reported Cardiovascular: No chest pain, No chest tightness, No chest pressure, No palpitations, No syncope, No diaphoresis, No edema, No intermittent claudication , No orthopnea, No cyanosis, No mumur, No lightheadedness, No paroxysmal nocturnal dyspnea, No problem reported Genitourinary - Female: No dysmenorrhea, No dysuria, No hematuria, No hesitancy , No menorrhagia, No metrorrhagia, No , No rash, No urinary frequency, No urinary incontinence, No urinary retention, No urinary urgency, No vulvadynia , No vaginal bleeding, No vaginal discharge, No vaginal itching, No breast problems, No problem reported Musculoskeletal: No back pain, No gout, No joint pain, No joint swelling, No muscle pain, No muscle stiffness, No muscle weakness, No neck pain, No problem reported Psychiatric: No anxiety, No alcohol abuse, No auditory hallucinations, No depression, No drug abuse, No homicidal ideation, No mood changes, No suicidal ideation, No visual hallucinations, No problem reported Physical Exam Constitutional: General Apperance: heathly-appearing, overweight Level of Distress: NAD Ambulation: limited ambulation Psychiatric: Mental Status: active & alert, normal mood, normal affect Orientation: oriented except where noted, to time, to place, to person Memory: recent memory normal, remote memory normal Eyes: EOM: EOMI Lungs: Respiratory effort: no dyspnea Auscultation: decreased breath sounds, expiratory wheezing Cardiovascular: Heart Auscultation: RRR Peripheral Pulses: Radial Pulse: normal on the left, normal on the right Femoral Pulse: normal on the left, normal on the right Abdomen: Inspection & Palpation: soft Musculoskeletal: normal Extremities: Upper Right: no cyanosis, no edema, no varicosities, no palpable cord, no clubbing, no ulcers, no mottling Upper Left: no cyanosis, no edema, no palpable cord, no clubbing, no ulcers , no mottling Lower Right: no cyanosis, no edema, no varicosities, no palpable cord, no clubbing, no ulcers, no mottling Lower Left: no cyanosis, no edema, no varicosities, no palpable cord, no clubbing, no ulcers, no mottling Assessment and Plan Imp: Right greater saphenous vein occlusion Plan: Patient was found to have an echogenic occlusion of her right greater saphenous vein. She is asymptomatic. The USN findings are indicative of old thrombus, not acute. No treatment necessary for this finding. Thank you very much for letting me participate in the care of this patient.
[2017-08-28] MEDS ORDERED: FUROSEMIDE INJ 40 MG in SYRINGE 0 ML IV ONE (11:15)
[2017-08-28] MEDS ORDERED: METOPROLOL SUCC 50MG EXT REL TAB PO STA (12:43)
[2017-08-28] MEDS ORDERED: NURSING VERBAL MED ORDER ONE ×2 (12:45→23:15)
--- NOTE | 2017-08-28 12:57 | Pulmonary Consultation ---
History General Date of Service: Aug 28, 2017. Chief Complaint: Shortness of breath Stated Complaint: Atrial Fibrillation With Rvr HPI The patient is a 81 year old female with h/o COPD on home O2, admitted for nausea, vomiting, diarrhea on 08/24/17. Was found to have new onset A-fib with RVR. She is also short of breath, worse than her baseline, desaturating with minimal activity. She denies a productive cough, fever or chills. The patient is not on any inhalers as outpatient, not clear why, she carries a diagnosis of advanced COPD. She usually sleeps with several pillows and in the hospital she only sleeps in the chair. She has chronic LE edema, c/o occasional cramping. Review of Systems Per HPI, rest of systems negative Past Medical History Past Medical History: COPD, on home O2 Cor pulmonale CAD HTN dyslipidemia DM2 Family History No pertinent family history Social History Hx Tobacco Use In Past Year?: No Smoking Status: Former Smoker Marital status: Occupational Status: unemployed History of MDRO History of MDRO: No Allergies Coded Allergies: Insulin (Verified Allergy, Unknown, ANAPHYLAXIS, 08/26/17) Current Medications Reported Home Medications Medications Dose Route/Sig Max Daily Dose Days Date Category Dose Instructions [Blood Thinner] 1 Tab PO DAILY 08/24/17 Reported PT UNSURE OF WHAT BLOOD THINNER SHE IS ON. CALLED PHARMACY AND PT DID NOT PERMIT [facility] TO RELEASE INFORMATION Zaroxolyn (Metolazone) 2.5 Mg Tab 2.5 Mg PO DAILY 08/24/17 Reported Nitrostat (Nitroglycerin) 0.4 Mg Sub 0.4 Mg SL DIRECTED PRN 06/23/14 Reported Glipizide Er (Glipizide) 2.5 Mg Tab 2.5 Mg PO DAILY 06/23/14 Reported Metoprolol Succinate ER (Metoprolol Succinate) 100 Mg Tabcr 50 Mg PO DAILY 06/23/14 Reported 1/2 TABLET Lipitor (Atorvastatin Calcium) 80 Mg Tab 80 Mg PO DAILY 06/23/14 Reported Physical Physical Exam Vital Signs: Date Time Temp Pulse Resp B/P (MAP) Pulse Ox O2 Delivery O2 Flow Rate FiO2 08/28/17 11:08 107 20 91 Nasal Cannula 6.0 08/28/17 11:05 36.8 102 22 97/67 (77) 91 Nasal Cannula 5.0 08/28/17 08:00 Nasal Cannula 6.0 08/28/17 07:12 78 20 94 Mask 10.0 08/28/17 07:11 36.4 88 18 100/65 (77) 92 Oxymask 11.0 08/28/17 05:10 36.8 81 23 120/77 (91) 92 Oxymask 11.0 08/28/17 04:00 Oxymask 11.0 08/28/17 00:25 89 Oxymask 11.0 08/28/17 00:23 36.4 95 22 111/65 (80) 86 Oxymask 11.0 08/27/17 23:59 Oxymask 11.0 08/27/17 22:32 90 Oxymask 11.0 08/27/17 22:30 85 Oxymask 10.0 08/27/17 20:00 Oxymask 11.0 08/27/17 19:59 109 20 89 Mask 11.0 08/27/17 19:39 36.7 103 26 102/70 (81) 90 Oxymask 10.0 08/27/17 17:40 97 20 95/52 (66) 88 Oxymask 9.0 08/27/17 17:00 Oxymask 9.0 08/27/17 16:46 85 20 93 Mask 6.0 08/27/17 16:00 95 Oxymask 6.0 08/27/17 15:25 36.7 87 21 99/55 (70) 93 Nasal Cannula 5.0 General: AAO x 3, no distress at rest Lungs: Diminished breath sounds b/l, no wheezing. CVS:S1S2 irregular Abd: Soft, NT Ext: significant b/l LE pitting edema Diagnostics Labs Results Past 24 Hours Test 08/27/17 16:11 08/27/17 16:15 08/27/17 18:36 08/27/17 20:14 Range/Units Bedside Glucose 126 339 70-90 mg/dl White Blood Count 12.48 4.8-10.8 K/uL Red Blood Count 4.68 4.2-5.4 M/uL Hemoglobin 14.6 12.0-16.0 g/dL Hematocrit 43.5 37-47 % Mean Corpuscular Volume 92.9 80-100 fL Mean Corpuscular Hemoglobin 31.2 25-34 pg Mean Corpuscular Hemoglobin Concent 33.6 32-36 g/dl RDW Standard Deviation 50.5 36.4-46.3 fL RDW Coefficient of Variation 15.1 11.5-14.5 % Platelet Count 112 130-400 K/uL Mean Platelet Volume 11.4 7.4-10.4 fL Sodium Level 128 136-145 mmol/L Potassium Level 4.8 3.5-5.1 mmol/L Chloride Level 89 98-107 mmol/L Carbon Dioxide Level 32 21-32 mmol/L Anion Gap 7.0 3-11 mmol/L Blood Urea Nitrogen 75 7-18 mg/dl Creatinine 1.72 0.60-1.20 mg/dl Est Creatinine Clear Calc Drug Dose 26.0 ml/min Estimated GFR () 31.5 Estimated GFR (Non- 27.2 BUN/Creatinine Ratio 43.8 10-20 Random Glucose 135 70-99 mg/dl Calcium Level 9.9 8.5-10.1 mg/dl Troponin I 0.052 0-0.045 ng/ml Arterial Blood pH 7.50 7.35-7.45 Arterial Blood Partial Pressure CO2 36 35-46 mmHg Arterial Blood Partial Pressure O2 53 80-95 mm/Hg Arterial Blood HCO3 27 19-24 mmol/L Arterial Blood Oxygen Saturation 87.7 90-95 % Arterial Blood Base Excess 4.3 -9-1.8 mEq/L Arterial Blood Gas Delivery 10L O2 Aaron Test POS POS Test 08/28/17 07:01 08/28/17 11:23 Range/Units Bedside Glucose 293 368 70-90 mg/dl Diagnostic Radiology CXR 08/26/17: IMPRESSION: 1. Rotated study 2. Cardiac enlargement with a globular configuration raising the possibility of a pericardial effusion 3. Increased bibasilar markings, atelectatic versus inflammatory CT chest 08/24/17: IMPRESSION: 1. The previously suggested anterior pneumothorax on the right was artifactual. No pneumothorax. 2. Extensive peribronchovascular peripheral consolidation in the right lower lobe is likely chronic with cicatrizing atelectasis. 3. Extensive mucus plugging and subsegmental airways in the lower lobes greater on the right could suggest chronic aspiration. 4. Cardiomegaly with small pericardial effusion. 5. Main pulmonary artery enlargement suggests pulmonary hypertension. 6. Osteopenia with a compression fracture of T6, new since 2014. Correlate for point tenderness. LE US 08/27/17 1. No sonographic evidence of deep venous thrombosis within the right or left lower extremity. 2. Occlusive superficial venous thrombus of the proximal aspect right greater saphenous vein measures at least 5 cm in length. The greater saphenous vein confluence with the common femoral vein is patent. Impression Assessment and Plan Advanced COPD with cor pulmonale Chronic respiratory failure New onset a-fib DM2 Plan: The patient was not receiving therapy for COPD. Will initiate therapy, hopefully we'll optimize the lung function a little. I doubt at this stage that it will have a meaningful impact on the cor pulmonale Start Advair. I counseled her to rinse well after use Add Spiriva. Bronchodilators every 4 hours around the clock IV steroids for the time being Supplement O2 Mucomyst nebs and Mucinex for mucoid impaction Fully anticoagulated for a-fib and the LE thrombosis Continue diuresis May attempt PFTs next week if she is able to perform Will continue to follow
--- NOTE | 2017-08-28 14:29 | Progress Note ---
Subjective Date of Service: Aug 28, 2017. Subjective Pt evaluation today including: conversation w/ patient, conversation w/ family , conversation w/ senior science consultant Pt is feeling much improved today. No SOB. Tolerating PO. Feels her LE swelling is increased with holding her lasix. No chest pain. Pt denies fever, abd pain, n/v/c/d, LE pain. Problem List Medical Problems: (1) Dehydration Status: Acute (2) Elevated troponin Status: Acute (3) Left sided abdominal pain Status: Acute Review of Systems All Other Systems: Reviewed and Negative Objective Vital Signs Date Time Temp Pulse Resp B/P (MAP) Pulse Ox O2 Delivery O2 Flow Rate FiO2 08/28/17 12:00 Nasal Cannula 6.0 08/28/17 11:08 107 20 91 Nasal Cannula 6.0 08/28/17 11:05 36.8 102 22 97/67 (77) 91 Nasal Cannula 5.0 08/28/17 08:00 Nasal Cannula 6.0 08/28/17 07:12 78 20 94 Mask 10.0 08/28/17 07:11 36.4 88 18 100/65 (77) 92 Oxymask 11.0 08/28/17 05:10 36.8 81 23 120/77 (91) 92 Oxymask 11.0 08/28/17 04:00 Oxymask 11.0 08/28/17 00:25 89 Oxymask 11.0 08/28/17 00:23 36.4 95 22 111/65 (80) 86 Oxymask 11.0 08/27/17 23:59 Oxymask 11.0 08/27/17 22:32 90 Oxymask 11.0 08/27/17 22:30 85 Oxymask 10.0 08/27/17 20:00 Oxymask 11.0 08/27/17 19:59 109 20 89 Mask 11.0 08/27/17 19:39 36.7 103 26 102/70 (81) 90 Oxymask 10.0 08/27/17 17:40 97 20 95/52 (66) 88 Oxymask 9.0 08/27/17 17:00 Oxymask 9.0 08/27/17 16:46 85 20 93 Mask 6.0 08/27/17 16:00 95 Oxymask 6.0 08/27/17 15:25 36.7 87 21 99/55 (70) 93 Nasal Cannula 5.0 Physical Exam Comments: General Appearance: WD/WN, no apparent distress Eyes: normal inspection, sclerae normal Respiratory/Chest: normal breath sounds, no respiratory distress Cardiovascular: no edema, + pertinent finding (irregular rhythm, reg rate) Abdomen: non tender, soft Extremities: non-tender, + pedal edema (2+ pitting, increased from yesterday) Neurologic/Psychiatric: alert, normal mood/affect, oriented x 3 Skin: normal color, warm/dry Laboratory Results Last 24 Hours Test 08/27/17 16:11 08/27/17 16:15 08/27/17 18:36 08/27/17 20:14 Bedside Glucose 126 mg/dl 339 mg/dl White Blood Count 12.48 K/uL Red Blood Count 4.68 M/uL Hemoglobin 14.6 g/dL Hematocrit 43.5 % Mean Corpuscular Volume 92.9 fL Mean Corpuscular Hemoglobin 31.2 pg Mean Corpuscular Hemoglobin Concent 33.6 g/dl RDW Standard Deviation 50.5 fL RDW Coefficient of Variation 15.1 % Platelet Count 112 K/uL Mean Platelet Volume 11.4 fL Sodium Level 128 mmol/L Potassium Level 4.8 mmol/L Chloride Level 89 mmol/L Carbon Dioxide Level 32 mmol/L Anion Gap 7.0 mmol/L Blood Urea Nitrogen 75 mg/dl Creatinine 1.72 mg/dl Est Creatinine Clear Calc Drug Dose 26.0 ml/min Estimated GFR () 31.5 Estimated GFR (Non- 27.2 BUN/Creatinine Ratio 43.8 Random Glucose 135 mg/dl Calcium Level 9.9 mg/dl Troponin I 0.052 ng/ml Arterial Blood pH 7.50 Arterial Blood Partial Pressure CO2 36 mmHg Arterial Blood Partial Pressure O2 53 mm/Hg Arterial Blood HCO3 27 mmol/L Arterial Blood Oxygen Saturation 87.7 % Arterial Blood Base Excess 4.3 mEq/L Arterial Blood Gas Delivery 10L O2 Aaron Test POS Test 08/28/17 07:01 08/28/17 11:23 Bedside Glucose 293 mg/dl 368 mg/dl Assessment and Plan 81 y/o F admitted on August 24, 2017, nausea, vomiting and diarrhea x 4 days and new onset afib with RVR Afib with RVR: no prior history of afib Initially improved s/p cardizem drip -> PO Cardizem, increased 3/10 for break through afib with RVR May need digoxin as well. 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 She is hesitant to be intubated at all, but does agree to short term intubation as would like this. 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 Continued [facility] stay due to: multiple IV medications needed Discharge planning: home
--- NOTE | 2017-08-28 15:22 | Cardiology Follow-Up ---
Subjective Date of Service: Aug 28, 2017. Pt evaluation today including: conversation w/ patient, physical exam, lab review, review of studies, review of inpatient medication list History of Present Illness This is an 81-year-old woman who has a history of diabetes mellitus, hypertension, coronary artery disease (identified at catheterization on June 25, 2014) as well as severe pulmonary hypertension. She has had stent placement at [facility] on 2 occasions by her recollection, not recently. She presents now with vomiting for 4 days, lower abdominal discomfort as well as diarrhea. She was not having chest symptoms, specifically not having palpitations, chest discomfort, etc. She is chronically on oxygen on arrival in the emergency room she was noted to be in atrial fibrillation with a rapid ventricular response. She was started on intravenous diltiazem and heparin and her rate has been better controlled. By morning she converted back to sinus rhythm with premature atrial beats. On further discussion with her she uses a pulse oximeter at home, she notices from time to time that her heart rate is elevated (in the 115 bpm range) whereas most the time it is in the 70 bpm range. She is unaware of palpitations but has not been in the hospital either when we have documented atrial fibrillation. I suspect she has this at home and that this is not a new finding. We have had a lot of difficulty controlling her atrial arrhythmia, she tends to go back into it require IV diltiazem. As of yesterday with increased her diltiazem CD 2 360 mg daily, she also is on metoprolol succinate 50 mg daily. This morning she was fast again, therefore I gave her an additional 50 mg of metoprolol succinate. Currently she is feeling fairly well, she is not aware of her arrhythmia nor the heart rate. She feels that her breathing is better but she remains hypoxic. Social History Smoking Status: Former Smoker History of Alcohol Use: No Review of Systems Respiratory: + shortness of breath, No cough, No sputum, No wheezing, No dyspnea on exertion, No dyspnea at rest, No hemoptysis Cardiac: + edema (Trace to 1+ edema), No chest pain, No orthopnea, No PND, No claudication, No palpitations Medications Cardiovascular: Item Value Date Time Diltiazem HCl 360 mg 08/28/17 0900 (Cardizem Cd Cap) QAM/PO 08/28/17 0901 Apixaban 2.5 mg 08/25/17 193 (Eliquis Tab) BID/PO 08/28/17900 Atorvastatin 80 mg 08/25/17899 Calcium DAILY/PO 08/28/17900 (Lipitor Tab) Metoprolol 50 mg 08/25/17899 Succinate DAILY/PO 08/28/17901 (Toprol Xl Tab) Objective Vital Signs Past 12 Hours Date Time Temp Pulse Resp B/P (MAP) Pulse Ox O2 Delivery O2 Flow Rate FiO2 08/28/17 12:00 Nasal Cannula 6.0 08/28/17 11:08 107 20 91 Nasal Cannula 6.0 08/28/17 11:05 36.8 102 22 97/67 (77) 91 Nasal Cannula 5.0 08/28/17 08:00 Nasal Cannula 6.0 08/28/17 07:12 78 20 94 Mask 10.0 08/28/17 07:11 36.4 88 18 100/65 (77) 92 Oxymask 11.0 08/28/17 05:10 36.8 81 23 120/77 (91) 92 Oxymask 11.0 08/28/17 04:00 Oxymask 11.0 Last Recorded Weight-Kilograms: 84.700 Intake & Output 8-Hour Column 08/28/17 08/28/17 08/29/17 15:59 23:59 07:59 Intake Total 240 ml Output Total 300 ml Balance -60 ml 24-Hour Column 08/29/17 07:59 Intake Total 240 ml Output Total 300 ml Balance -60 ml Physical Exam Constitutional: General Apperance: heathly-appearing, overweight Level of Distress: NAD Ambulation: limited ambulation Lungs: Respiratory effort: no dyspnea Auscultation: no wheezing, decreased breath sounds Cardiovascular: Heart Auscultation: no murmurs, no rubs, no gallops, irregular rate rhythm Peripheral Pulses: Bruits: none appreciated Radial Pulse: normal on the left, normal on the right Femoral Pulse: normal on the left, normal on the right Data Laboratory Results: Last 24 Hours Test 08/27/17 16:11 08/27/17 16:15 08/27/17 18:36 08/27/17 20:14 Bedside Glucose 126 mg/dl 339 mg/dl White Blood Count 12.48 K/uL Red Blood Count 4.68 M/uL Hemoglobin 14.6 g/dL Hematocrit 43.5 % Mean Corpuscular Volume 92.9 fL Mean Corpuscular Hemoglobin 31.2 pg Mean Corpuscular Hemoglobin Concent 33.6 g/dl RDW Standard Deviation 50.5 fL RDW Coefficient of Variation 15.1 % Platelet Count 112 K/uL Mean Platelet Volume 11.4 fL Sodium Level 128 mmol/L Potassium Level 4.8 mmol/L Chloride Level 89 mmol/L Carbon Dioxide Level 32 mmol/L Anion Gap 7.0 mmol/L Blood Urea Nitrogen 75 mg/dl Creatinine 1.72 mg/dl Est Creatinine Clear Calc Drug Dose 26.0 ml/min Estimated GFR () 31.5 Estimated GFR (Non- 27.2 BUN/Creatinine Ratio 43.8 Random Glucose 135 mg/dl Calcium Level 9.9 mg/dl Troponin I 0.052 ng/ml Arterial Blood pH 7.50 Arterial Blood Partial Pressure CO2 36 mmHg Arterial Blood Partial Pressure O2 53 mm/Hg Arterial Blood HCO3 27 mmol/L Arterial Blood Oxygen Saturation 87.7 % Arterial Blood Base Excess 4.3 mEq/L Arterial Blood Gas Delivery 10L O2 Aaron Test POS Test 08/28/17 07:01 08/28/17 11:23 Bedside Glucose 293 mg/dl 368 mg/dl Telemetry reviewed: Atrial fibrillation/flutter remains, heart rate is better controlled now in the 80-90 bpm range for the most part. It was elevated earlier today. Assessment and Plan 1. Atrial flutter/fibrillation: Her presentation atrial flutter is a new diagnosis however I suspect she has had it before as noted in the HPI. She was initially treated with IV diltiazem with reasonable rate control. It quickly reverted to sinus rhythm, however she has had recurrence of the arrhythmia, once again she is unaware of it. Over the long run she should probably treated with rate control medications (I would use oral diltiazem and try to avoid high dose beta blockade if possible), additionally I agree she should be on anticoagulation and agree with Kade. It may be difficult on exam in the future to determine her rhythm since she has a very irregular rhythm due to very frequent premature atrial beats during sinus rhythm. As long as the rate is controlled and she is on anticoagulation the distinction would not be important. I am going to increase her metoprolol succinate, she received 100 mg today and it has not adversely affected her respiratory status (it did not cause wheezing). She will therefore be on metoprolol succinate 100 mg daily and diltiazem CD 360 mg daily. At least as of today that seems to be controlling her heart rate. 2. Abnormal cardiac enzymes: She has low-grade abnormal cardiac enzymes but I think this is consistent with demand ischemia from her known coronary artery disease and her rapid heart rate. 3. Coronary disease: She does not have symptoms of myocardial ischemia, but she did not in the past either. She does not have much to suggest active ischemia on her electrocardiogram and her enzymes are more in keeping with demand ischemia. I would not pursue further evaluation at this time. 4. Pulmonary hypertension: She has a history of pulmonary hypertension, she has severe pulmonary hypertension and tricuspid regurgitation on her current echo but this is similar to before. There is probably little that can be done with this but no doubt it contributes to her edema. Thank you for allowing me to participate in her care.
[2017-08-29] VITALS (13 sets, daily range): BP systolic 93–121; BP diastolic 55–73; PULSE 81–100; TEMP 36–36.7; O2SAT 90–97; BMI 33.8
[2017-08-29] MEDS: ALBUT/IPRATROP 3MG/0.5MG NEB 3 ML VIAL INH SCH ×5 (03:41→19:02)
[2017-08-29 06:07] LABS: HEMATOCRIT 38.2 % (37-47); HEMOGLOBIN 12.9 g/dL (12.0-16.0); MEAN CELL VOLUME 90.5 fL (80-100); MEAN CORPUSCULAR HEMOGLOBIN 30.6 pg (25-34); MEAN CORPUSCULAR HGB CONC 33.8 g/dl (32-36); PLATELET COUNT 135 K/uL (130-400); RED CELL DISTRIBUTION WIDTH CV 15.1 % (11.5-14.5); RED CELL DISTRIBUTION WIDTH SD 49.7 fL (36.4-46.3); WHITE BLOOD COUNT 18.93 K/uL (4.8-10.8)
[2017-08-29 06:49] LABS: CREATININE 1.96 mg/dl (0.60-1.20)
[2017-08-29 06:50] LABS: CALCIUM 10.1 mg/dl (8.5-10.1)
[2017-08-29] MEDS: ACETYLCYSTEINE 20% INHAL SOLN ***DISPENSED BY RESP. INH SCH ×2 (07:12→20:00)
[2017-08-29] MEDS: FLUTICASONE/SALMETEROL 250/50 (ADVAIR) 14 PUFF/1 INHALER INH SCH ×2 (08:12→20:55)
[2017-08-29] MEDS: GLIMEPIRIDE 2 MG TAB PO SCH (08:14)
[2017-08-29] MEDS: TIOTROPIUM BROMIDE 5 PUFF/90 MCG INH INH SCH (08:14)
[2017-08-29] MEDS: CALCIUM 600MG + VIT D 400 IU TAB PO SCH ×2 (08:15→21:10)
[2017-08-29] MEDS: ATORVASTATIN 40 MG TAB PO SCH (08:15)
[2017-08-29] MEDS: METOPROLOL SUCC 50MG EXT REL TAB PO SCH (08:15)
[2017-08-29] MEDS: DILTIAZEM HCL 120 MG CAPCR PO SCH (08:16)
[2017-08-29] MEDS: APIXABAN 2.5 MG TAB PO SCH ×2 (08:16→21:09)
[2017-08-29] MEDS: GUAIFENESIN 600 MG TABCR PO SCH ×2 (08:16→21:10)
[2017-08-29] MEDS: METHYLPREDNISOLONE IV 40 MG in SYRINGE 0 ML IV SCH ×2 (08:16→21:09)
--- NOTE | 2017-08-29 09:35 | Cardiology Follow-Up ---
Subjective Date of Service: Aug 29, 2017. Pt evaluation today including: conversation w/ patient, physical exam, lab review, review of studies, review of inpatient medication list History of Present Illness This is an 81-year-old woman who has a history of diabetes mellitus, hypertension, coronary artery disease (identified at catheterization on June 25, 2014) as well as severe pulmonary hypertension. She has had stent placement at [facility] on 2 occasions by her recollection, not recently. She presents now with vomiting for 4 days, lower abdominal discomfort as well as diarrhea. She was not having chest symptoms, specifically not having palpitations, chest discomfort, etc. She is chronically on oxygen on arrival in the emergency room she was noted to be in atrial fibrillation with a rapid ventricular response. She was started on intravenous diltiazem and heparin and her rate has been better controlled. By morning she converted back to sinus rhythm with premature atrial beats. On further discussion with her she uses a pulse oximeter at home, she notices from time to time that her heart rate is elevated (in the 115 bpm range) whereas most the time it is in the 70 bpm range. She is unaware of palpitations but has not been in the hospital either when we have documented atrial fibrillation. I suspect she has this at home and that this is not a new finding. We have had a lot of difficulty controlling her atrial arrhythmia, she tends to go back into it require IV diltiazem. As of yesterday with increased her diltiazem CD 2 360 mg daily, she also is on metoprolol succinate 50 mg daily. This morning she was fast again, therefore I gave her an additional 50 mg of metoprolol succinate. Currently she is feeling fairly well, she is not aware of her arrhythmia nor the heart rate. She feels that her breathing is better but she remains hypoxic. Social History Smoking Status: Former Smoker History of Alcohol Use: No Review of Systems Respiratory: No cough, No sputum, No wheezing, No shortness of breath (No shortness of breath while wearing oxygen), No dyspnea on exertion, No dyspnea at rest, No hemoptysis Cardiac: + edema (Trace to 1+ edema), No chest pain, No orthopnea, No PND, No claudication, No palpitations Medications Cardiovascular: Item Value Date Time Metoprolol 100 mg 08/29/17 0900 Succinate QAM/PO 08/29/17 0815 (Toprol Xl Tab) Diltiazem HCl 360 mg 08/28/17 0900 (Cardizem Cd Cap) QAM/PO 08/29/17 0816 Apixaban 2.5 mg 08/25/17 1930 (Eliquis Tab) BID/PO 08/29/17 0816 Atorvastatin 80 mg 08/25/17 0900 Calcium DAILY/PO 08/29/17 0815 (Lipitor Tab) Objective Vital Signs Past 12 Hours Date Time Temp Pulse Resp B/P (MAP) Pulse Ox O2 Delivery O2 Flow Rate FiO2 08/29/17 08:10 36.5 96 26 94/63 (73) 95 Oxymask 15.0 100 08/29/17 07:15 90 20 92 Mask 15.0 08/29/17 04:13 36.0 100 27 121/70 (87) 97 BiPAP 100 08/29/17 04:00 BiPAP 100 08/29/17 03:41 90 22 96 BiPAP/CPAP 100 08/28/17 23:59 BiPAP 100 08/28/17 23:56 105 93 08/28/17 23:55 105 20 93 BiPAP/CPAP 100 08/28/17 23:31 36.5 96 22 102/56 (71) 95 BiPAP 08/28/17 22:34 104 94 08/28/17 22:27 104 17 95 CPAP 10.5 100 08/28/17 21:12 113 24 92/53 (66) 86 Oxymask 13.0 Last Recorded Weight-Kilograms: 86.500 Physical Exam Constitutional: General Apperance: heathly-appearing, overweight Level of Distress: NAD Ambulation: limited ambulation Lungs: Respiratory effort: no dyspnea Auscultation: no wheezing, decreased breath sounds Cardiovascular: Heart Auscultation: no murmurs, no rubs, no gallops, tachycardia, irregular rate rhythm Peripheral Pulses: Bruits: none appreciated Data Laboratory Results: Last 24 Hours Test 08/28/17 11:23 08/28/17 15:52 08/28/17 19:51 08/29/17 05:24 Bedside Glucose 368 mg/dl 416 mg/dl 394 mg/dl White Blood Count 18.93 K/uL Red Blood Count 4.22 M/uL Hemoglobin 12.9 g/dL Hematocrit 38.2 % Mean Corpuscular Volume 90.5 fL Mean Corpuscular Hemoglobin 30.6 pg Mean Corpuscular Hemoglobin Concent 33.8 g/dl RDW Standard Deviation 49.7 fL RDW Coefficient of Variation 15.1 % Platelet Count 135 K/uL Mean Platelet Volume 11.0 fL Sodium Level 127 mmol/L Potassium Level 4.0 mmol/L Chloride Level 87 mmol/L Carbon Dioxide Level 31 mmol/L Anion Gap 9.0 mmol/L Blood Urea Nitrogen 82 mg/dl Creatinine 1.96 mg/dl Est Creatinine Clear Calc Drug Dose 22.8 ml/min Estimated GFR () 26.9 Estimated GFR (Non- 23.2 BUN/Creatinine Ratio 41.8 Random Glucose 293 mg/dl Calcium Level 10.1 mg/dl Test 08/29/17 05:50 Bedside Glucose 323 mg/dl Telemetry reviewed: Remains in atrial fibrillation, heart rate is better averaging around 100 bpm except when she is active when it is higher Assessment and Plan 1. Atrial flutter/fibrillation: Her presentation atrial flutter is a new diagnosis however I suspect she has had it before as noted in the HPI. She was initially treated with IV diltiazem with reasonable rate control. It quickly reverted to sinus rhythm, however she has had recurrence of the arrhythmia, once again she is unaware of it. Over the long run she should probably treated with rate control medications (I would use oral diltiazem and try to avoid high dose beta blockade if possible), additionally I agree she should be on anticoagulation and agree with Kade. It may be difficult on exam in the future to determine her rhythm since she has a very irregular rhythm due to very frequent premature atrial beats during sinus rhythm. As long as the rate is controlled and she is on anticoagulation the distinction would not be important. She is on diltiazem CD 360 mg daily and metoprolol succinate 100 mg daily and seems to be tolerating both. Under the circumstances her heart rate would probably be high, therefore I am going to leave things as they are at least for now. In the future we may have to add more rate control medications but I am worried about getting her on too many and if she converts back to sinus she may be quite slow. Her blood pressure may be an issue as well if we go higher. 2. Abnormal cardiac enzymes: She has low-grade abnormal cardiac enzymes but I think this is consistent with demand ischemia from her known coronary artery disease and her rapid heart rate. 3. Coronary disease: She does not have symptoms of myocardial ischemia, but she did not in the past either. She does not have much to suggest active ischemia on her electrocardiogram and her enzymes are more in keeping with demand ischemia. I would not pursue further evaluation at this time. 4. Pulmonary hypertension: She has a history of pulmonary hypertension, she has severe pulmonary hypertension and tricuspid regurgitation on her current echo but this is similar to before. There is probably little that can be done with this but no doubt it contributes to her edema. Thank you for allowing me to participate in her care.
[2017-08-29] MEDS ORDERED: NURSING VERBAL MED ORDER ONE (11:15)
--- NOTE | 2017-08-29 14:30 | Progress Note ---
Subjective Date of Service: Aug 29, 2017. Subjective Pt evaluation today including: conversation w/ patient, conversation w/ family , physical exam, chart review, lab review, review of studies, conversation w/ risk assessment consultant, review of inpatient medication list Voiding: no voiding problems Required to put on BiPAP with 100% FiO2 support last night, this morning has been off BiPAP , patient currently is on oxygen mask, she is awake alert and orientated to speak fluently, conversational, patient reports generalized weakness, denies palpitations or dizziness, heart rate in the monitor is around 105 Problem List Medical Problems: (1) Dehydration Status: Acute (2) Elevated troponin Status: Acute (3) Left sided abdominal pain Status: Acute Review of Systems Constitutional: + weakness, + fatigue, No fever, No chills, No sweats, No weight loss, No problem reported Eyes: No worsening of vision, No eye pain, No redness, No discharge, No diplopia ENT: No hearing loss, No unusual epistaxis, No nasal symptoms, No sore throat, No tinnitus, No dental problems, No trouble swallowing Respiratory: + cough, + shortness of breath (It is better,), No sputum, No wheezing, No dyspnea on exertion, No dyspnea at rest, No hemoptysis Cardiac: + edema (2+ edema, is not new), No chest pain, No orthopnea, No PND, No claudication, No palpitations Abdomen: No pain, No nausea, No vomiting, No diarrhea, No constipation Musculoskeletal: No joint pain, No muscle pain, No swelling, No calf pain Female : No dysuria, No urinary frequency, No hematuria, No incontinence, No abnormal vaginal bleeding, No vaginal discharge Neurologic: No memory loss, No paralysis, No weakness, No numbness/tingling, No vertigo, No balance problems Psychiatric: No depression symptoms, No anhedonism, No anxiety, No insomnia, No substance abuse Heme: No abnormal bleeding/bruising, No clotting problems, No swollen lymph nodes, No night sweats Endo: No fatigue, No excessive thirst, No excessive urination Skin: No rash, No itch, No new/changing skin lesions, No color change, No bleeding Objective Vital Signs Date Time Temp Pulse Resp B/P (MAP) Pulse Ox O2 Delivery O2 Flow Rate FiO2 08/29/17 12:10 36.5 97 24 109/58 (75) 95 Oxymask 15.0 08/29/17 12:00 Oxymask 15.0 08/29/17 11:15 90 20 92 Mask 15.0 08/29/17 08:10 36.5 96 26 94/63 (73) 95 Oxymask 15.0 100 08/29/17 08:00 Oxymask 15.0 08/29/17 07:15 90 20 92 Mask 15.0 08/29/17 04:13 36.0 100 27 121/70 (87) 97 BiPAP 100 08/29/17 04:00 BiPAP 100 08/29/17 03:41 90 22 96 BiPAP/CPAP 100 08/28/17 23:59 BiPAP 100 08/28/17 23:56 105 93 08/28/17 23:55 105 20 93 BiPAP/CPAP 100 08/28/17 23:31 36.5 96 22 102/56 (71) 95 BiPAP 08/28/17 22:34 104 94 08/28/17 22:27 104 17 95 CPAP 10.5 100 08/28/17 21:12 113 24 92/53 (66) 86 Oxymask 13.0 08/28/17 20:00 86 Oxymask 13.0 08/28/17 19:35 93 24 87 Oxymask 10.0 08/28/17 19:30 101 20 84 Mask 11.0 08/28/17 16:00 86 Oxymask 7.0 08/28/17 15:46 88 20 91 Mask 8.0 08/28/17 15:27 36.5 86 24 107/57 (74) 86 Nasal Cannula 6.0 Oxymask Physical Exam General Appearance: WD/WN, no apparent distress, + obese, + pertinent finding ( Frail, mild pale, chronically ill looking,) Eyes: normal inspection, PERRL, EOMI, sclerae normal ENT: normal ENT inspection, hearing grossly normal, pharynx normal Neck: supple, no adenopathy, thyroid normal, no JVD, no carotid bruits, trachea midline Respiratory/Chest: chest non-tender, normal breath sounds, no respiratory distress, no accessory muscle use, + decreased breath sounds Cardiovascular: regular rate, rhythm, no edema, no gallop, no JVD, no murmur, + irregularly irregular Abdomen: normal bowel sounds, non tender, soft, no organomegaly, no pulsatile mass Extremities: normal range of motion, non-tender, normal inspection, no pedal edema, no calf tenderness, normal capillary refill, pelvis stable Neurologic/Psychiatric: controlled atmospheric furnace brazer II-XII nml as tested, no motor/sensory deficits, alert, normal mood/affect, oriented x 3 Skin: normal color, warm/dry, no rash Lymphatic: no adenopathy Laboratory Results Last 24 Hours Test 08/28/17 15:52 08/28/17 19:51 08/29/17 05:24 08/29/17 05:50 Bedside Glucose 416 mg/dl 394 mg/dl 323 mg/dl White Blood Count 18.93 K/uL Red Blood Count 4.22 M/uL Hemoglobin 12.9 g/dL Hematocrit 38.2 % Mean Corpuscular Volume 90.5 fL Mean Corpuscular Hemoglobin 30.6 pg Mean Corpuscular Hemoglobin Concent 33.8 g/dl RDW Standard Deviation 49.7 fL RDW Coefficient of Variation 15.1 % Platelet Count 135 K/uL Mean Platelet Volume 11.0 fL Sodium Level 127 mmol/L Potassium Level 4.0 mmol/L Chloride Level 87 mmol/L Carbon Dioxide Level 31 mmol/L Anion Gap 9.0 mmol/L Blood Urea Nitrogen 82 mg/dl Creatinine 1.96 mg/dl Est Creatinine Clear Calc Drug Dose 22.8 ml/min Estimated GFR () 26.9 Estimated GFR (Non- 23.2 BUN/Creatinine Ratio 41.8 Random Glucose 293 mg/dl Calcium Level 10.1 mg/dl Test 08/29/17 11:32 Bedside Glucose 359 mg/dl Assessment and Plan 81 y/o F admitted on August 24, 2017, associated with nausea, vomiting and diarrhea x 4 days, and A. fib with rapid ventricular response, A. fib with rapid ventricular response, is new identified, no history of A. fib, has been on Cardizem drip, which was switch over to oral Cardizem 360 mg p.o. daily daily, and continue with metoprolol at 100 mg p.o. twice daily per information assurance specialist, cont oral diltiazem and try to avoid high dose beta blockade if possible, continue with Eliquis, patient may need digoxin as well. Possible virus gastroenteritis, upon admission, with nausea, vomiting, diarrhea upon admission, is doing better, improvement resolved, tolerating clear liquid diet, was advised to type II diabetic diet Continue supportive care, C. 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 - mucous plugging is reported on CT and there is some concern for aspiration, Patient require higher level of oxygen support, continue steroid, nebulizer treatment, and supportive care Uncontrolled with A1c 7.2 of diabetic, patient declined using insulin because he is on allergy, patient can resume oral metformin upon discharge, need to be cautious because patient has an elevated creatinine, Has restarted patient home medicine of glipizide,, and the same time I encourage patient to discuss with PCP to start using insulin, BG out of control is also because of the using of Solu-Medrol currently, will tapering some DVT prophylaxis, Talked to patient's updated patient's conditions and care plan, answered all questions Continued [facility] stay due to: multiple IV medications needed Discharge planning: home
[2017-08-30] VITALS (12 sets, daily range): BP systolic 101–126; BP diastolic 55–81; PULSE 80–98; TEMP 36.4–36.5; O2SAT 89–94
[2017-08-30] MEDS: ALBUT/IPRATROP 3MG/0.5MG NEB 3 ML VIAL INH SCH ×7 (03:15→22:49)
[2017-08-30 05:49] LABS: HEMATOCRIT 37.9 % (37-47); HEMOGLOBIN 12.8 g/dL (12.0-16.0); IG# 0.04 K/uL (0.00-0.02); LYMPH % 3.8 %; LYMPH ABS # 0.54 K/uL (1.2-3.4); MEAN CELL VOLUME 90.5 fL (80-100); MEAN CORPUSCULAR HEMOGLOBIN 30.5 pg (25-34); MEAN CORPUSCULAR HGB CONC 33.8 g/dl (32-36); MEAN PLATELET VOLUME 10.8 fL (7.4-10.4); MONO % 5.6 %; NEUT % 90.3 %; NEUT ABS # 12.98 K/uL (1.4-6.5); PLATELET COUNT 137 K/uL (130-400); RED CELL DISTRIBUTION WIDTH CV 15.3 % (11.5-14.5); RED CELL DISTRIBUTION WIDTH SD 50.2 fL (36.4-46.3); WHITE BLOOD COUNT 14.36 K/uL (4.8-10.8)
[2017-08-30 06:25] LABS: CALCIUM 10.3 mg/dl (8.5-10.1); CREATININE 1.98 mg/dl (0.60-1.20); PHOSPHORUS 3.1 mg/dl (2.5-4.9); POTASSIUM 4.6 mmol/L (3.5-5.1)
[2017-08-30] MEDS: ACETYLCYSTEINE 20% INHAL SOLN ***DISPENSED BY RESP. INH SCH ×2 (08:00→19:34)
--- NOTE | 2017-08-30 08:45 | Cardiology Follow-Up ---
Subjective Date of Service: Aug 30, 2017. Pt evaluation today including: conversation w/ patient, physical exam, lab review, review of studies, review of inpatient medication list History of Present Illness This is an 81-year-old woman who has a history of diabetes mellitus, hypertension, coronary artery disease (identified at catheterization on June 25, 2014) as well as severe pulmonary hypertension. She has had stent placement at [facility] on 2 occasions by her recollection, not recently. She presents now with vomiting for 4 days, lower abdominal discomfort as well as diarrhea. She was not having chest symptoms, specifically not having palpitations, chest discomfort, etc. She is chronically on oxygen on arrival in the emergency room she was noted to be in atrial fibrillation with a rapid ventricular response. She was started on intravenous diltiazem and heparin and her rate has been better controlled. By morning she converted back to sinus rhythm with premature atrial beats. On further discussion with her she uses a pulse oximeter at home, she notices from time to time that her heart rate is elevated (in the 115 bpm range) whereas most the time it is in the 70 bpm range. She is unaware of palpitations but has not been in the hospital either when we have documented atrial fibrillation. I suspect she has this at home and that this is not a new finding. We have had a lot of difficulty controlling her atrial arrhythmia, ultimately we titrated her oral medications to diltiazem 360 mg daily and metoprolol succinate 100 mg daily. Her heart rate was a little bit fast yesterday but left her medications alone. Currently she is feeling much better, she had a good night sleep and is not short of breath this morning although is on supplemental oxygen. She has had no palpitations. Social History Smoking Status: Former Smoker History of Alcohol Use: No Review of Systems Respiratory: + cough, No sputum, No wheezing, No shortness of breath, No dyspnea on exertion, No dyspnea at rest, No hemoptysis Cardiac: + edema (2+ edema, is not new), No chest pain, No orthopnea, No PND, No claudication, No palpitations Medications Cardiovascular: Item Value Date Time Metoprolol 100 mg 08/29/17 0900 Succinate QAM/PO 08/29/17 0815 (Toprol Xl Tab) Diltiazem HCl 360 mg 08/28/17 0900 (Cardizem Cd Cap) QAM/PO 08/29/17 0816 Apixaban 2.5 mg 08/25/17 1930 (Eliquis Tab) BID/PO 08/29/179 Objective Vital Signs Past 12 Hours Date Time Temp Pulse Resp B/P (MAP) Pulse Ox O2 Delivery O2 Flow Rate FiO2 08/30/17 07:47 36.5 80 24 111/76 (88) 91 High Flow Oxygen 50 08/30/17 07:25 91 20 91 Nasal Cannula 45.0 55 08/30/17 04:14 36.5 82 15 126/77 (93) 90 High Flow Oxygen 47.0 98 Humidified Oxygen 08/30/17 04:00 High Flow Oxygen 45 08/29/17 23:59 High Flow Oxygen 45 08/29/17 23:33 36.5 93 28 98/72 (81) 90 Oxymask 15.0 Last Recorded Weight-Kilograms: 86.800 Physical Exam Constitutional: General Apperance: heathly-appearing, overweight Level of Distress: NAD Ambulation: limited ambulation Lungs: Respiratory effort: no dyspnea Auscultation: no wheezing, decreased breath sounds Cardiovascular: Heart Auscultation: no murmurs, no rubs, no gallops, tachycardia, irregular rate rhythm Peripheral Pulses: Bruits: none appreciated Data Laboratory Results: Last 24 Hours Test 08/29/17 11:32 08/29/17 15:59 08/29/17 19:53 08/30/17 05:24 Bedside Glucose 359 mg/dl 408 mg/dl 367 mg/dl White Blood Count 14.36 K/uL Red Blood Count 4.19 M/uL Hemoglobin 12.8 g/dL Hematocrit 37.9 % Mean Corpuscular Volume 90.5 fL Mean Corpuscular Hemoglobin 30.5 pg Mean Corpuscular Hemoglobin Concent 33.8 g/dl Platelet Count 137 K/uL Mean Platelet Volume 10.8 fL Neutrophils (%) (Auto) 90.3 % Lymphocytes (%) (Auto) 3.8 % Monocytes (%) (Auto) 5.6 % Eosinophils (%) (Auto) 0.0 % Basophils (%) (Auto) 0.0 % Neutrophils # (Auto) 12.98 K/uL Lymphocytes # (Auto) 0.54 K/uL Monocytes # (Auto) 0.80 K/uL Eosinophils # (Auto) 0.00 K/uL Basophils # (Auto) 0.00 K/uL RDW Standard Deviation 50.2 fL RDW Coefficient of Variation 15.3 % Immature Granulocyte % (Auto) 0.3 % Immature Granulocyte # (Auto) 0.04 K/uL Sodium Level 127 mmol/L Potassium Level 4.6 mmol/L Chloride Level 89 mmol/L Carbon Dioxide Level 27 mmol/L Anion Gap 11.0 mmol/L Blood Urea Nitrogen 97 mg/dl Creatinine 1.98 mg/dl Est Creatinine Clear Calc Drug Dose 22.8 ml/min Estimated GFR () 26.6 Estimated GFR (Non- 23.0 BUN/Creatinine Ratio 48.9 Random Glucose 283 mg/dl Calcium Level 10.3 mg/dl Phosphorus Level 3.1 mg/dl Magnesium Level 2.2 mg/dl Test 08/30/17 06:26 Bedside Glucose 314 mg/dl Telemetry reviewed: Atrial fibrillation, her heart rate has been quite well controlled since yesterday, improved from the day before Assessment and Plan 1. Atrial flutter/fibrillation: Her presentation atrial flutter is a new diagnosis however I suspect she has had it before as noted in the HPI. Her heart rate has improved now although she is on quite high doses of diltiazem and metoprolol succinate. Part of her fast heart rate may have been anxiety and stress, now her heart rate has improved and she is feeling better. I think we should continue these medications for now, over long run we may have to decrease them but would like to keep them at the current dose for now. She should be on long-term anticoagulation, she is on the correct dose of Eliquis. 2. Abnormal cardiac enzymes: She has low-grade abnormal cardiac enzymes but I think this is consistent with demand ischemia from her known coronary artery disease and her rapid heart rate. 3. Coronary disease: She does not have symptoms of myocardial ischemia, but she did not in the past either. She does not have much to suggest active ischemia on her electrocardiogram and her enzymes are more in keeping with demand ischemia. I would not pursue further evaluation at this time. 4. Pulmonary hypertension: She has a history of pulmonary hypertension, she has severe pulmonary hypertension and tricuspid regurgitation on her current echo but this is similar to before. There is probably little that can be done with this but no doubt it contributes to her edema. Thank you for allowing me to participate in her care.
[2017-08-30] MEDS: FLUTICASONE/SALMETEROL 250/50 (ADVAIR) 14 PUFF/1 INHALER INH SCH ×2 (08:50→21:44)
[2017-08-30] MEDS: TIOTROPIUM BROMIDE 5 PUFF/90 MCG INH INH SCH (08:50)
[2017-08-30] MEDS: GUAIFENESIN 600 MG TABCR PO SCH ×2 (08:51→21:41)
[2017-08-30] MEDS: METOPROLOL SUCC 50MG EXT REL TAB PO SCH (08:51)
[2017-08-30] MEDS: ATORVASTATIN 40 MG TAB PO SCH (08:52)
[2017-08-30] MEDS: APIXABAN 2.5 MG TAB PO SCH ×2 (08:53→21:40)
[2017-08-30] MEDS: DILTIAZEM HCL 120 MG CAPCR PO SCH (08:53)
[2017-08-30] MEDS: CALCIUM 600MG + VIT D 400 IU TAB PO SCH ×2 (08:54→21:41)
--- NOTE | 2017-08-30 14:14 | Progress Note ---
Subjective Date of Service: Aug 30, 2017. Subjective Pt evaluation today including: conversation w/ patient, conversation w/ family , physical exam, chart review, lab review, review of studies, conversation w/ marketing consultant, review of inpatient medication list Feeling better, more energetic, smiling reported to have a good rest last night, was on high flow which is able to taper down to nasal cannula oxygen patient getting nebulizer treatment, eating voiding good , no complaint Problem List Medical Problems: (1) Dehydration Status: Acute (2) Elevated troponin Status: Acute (3) Left sided abdominal pain Status: Acute Review of Systems Constitutional: + fatigue, No fever, No chills, No sweats, No weight loss, No weakness, No problem reported Eyes: No worsening of vision, No eye pain, No redness, No discharge, No diplopia ENT: No hearing loss, No unusual epistaxis, No nasal symptoms, No sore throat, No tinnitus, No dental problems, No trouble swallowing Respiratory: + cough, + wheezing, + shortness of breath, + dyspnea on exertion , No sputum, No dyspnea at rest, No hemoptysis Cardiac: + edema, No chest pain, No orthopnea, No PND, No claudication, No palpitations Abdomen: No pain, No nausea, No vomiting, No diarrhea, No constipation Musculoskeletal: No joint pain, No muscle pain, No swelling, No calf pain Female : No dysuria, No urinary frequency, No hematuria, No incontinence, No abnormal vaginal bleeding, No vaginal discharge Neurologic: No memory loss, No paralysis, No weakness, No numbness/tingling, No vertigo, No balance problems Psychiatric: No depression symptoms, No anhedonism, No anxiety, No insomnia, No substance abuse Heme: No abnormal bleeding/bruising, No clotting problems, No swollen lymph nodes, No night sweats Endo: No fatigue, No excessive thirst, No excessive urination Skin: No rash, No itch, No new/changing skin lesions, No color change, No bleeding Objective Vital Signs Date Time Temp Pulse Resp B/P (MAP) Pulse Ox O2 Delivery O2 Flow Rate FiO2 08/30/17 11:16 92 20 91 Nasal Cannula 45.0 55 08/30/17 08:00 91 High Flow Oxygen 45 08/30/17 07:47 36.5 80 24 111/76 (88) 91 High Flow Oxygen 50 08/30/17 07:25 91 20 91 Nasal Cannula 45.0 55 08/30/17 04:14 36.5 82 15 126/77 (93) 90 High Flow Oxygen 47.0 98 Humidified Oxygen 08/30/17 04:00 High Flow Oxygen 45 08/29/17 23:59 High Flow Oxygen 45 08/29/17 23:33 36.5 93 28 98/72 (81) 90 Oxymask 15.0 08/29/17 20:00 97 Oxymask 08/29/17 19:10 36.7 81 26 93/73 (80) 97 Oxymask 8.0 08/29/17 19:02 88 20 91 Mask 15.0 08/29/17 16:00 91 Oxymask 08/29/17 15:20 36.4 85 24 96/55 (69) 91 Oxymask 15.0 08/29/17 15:08 83 20 91 Mask 15.0 Physical Exam General Appearance: WD/WN, no apparent distress, + obese Eyes: normal inspection, PERRL, EOMI, sclerae normal ENT: normal ENT inspection, hearing grossly normal, pharynx normal Neck: supple, no adenopathy, thyroid normal, no JVD, no carotid bruits, trachea midline Respiratory/Chest: chest non-tender, no respiratory distress, no accessory muscle use, + decreased breath sounds, + rales, + wheezing Cardiovascular: no gallop, no JVD, no murmur, + irregularly irregular, + pertinent finding (1+ edema) Abdomen: normal bowel sounds, non tender, soft, no organomegaly, no pulsatile mass Extremities: normal range of motion, non-tender, normal inspection, no pedal edema, no calf tenderness, normal capillary refill, pelvis stable, + swelling 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, no motor/sensory deficits, alert, normal mood/affect, oriented x 3 Skin: normal color, warm/dry, no rash Lymphatic: no adenopathy Laboratory Results Last 24 Hours Test 08/29/17 15:59 08/29/17 19:53 08/30/17 05:24 08/30/17 06:26 Bedside Glucose 408 mg/dl 367 mg/dl 314 mg/dl White Blood Count 14.36 K/uL Red Blood Count 4.19 M/uL Hemoglobin 12.8 g/dL Hematocrit 37.9 % Mean Corpuscular Volume 90.5 fL Mean Corpuscular Hemoglobin 30.5 pg Mean Corpuscular Hemoglobin Concent 33.8 g/dl Platelet Count 137 K/uL Mean Platelet Volume 10.8 fL Neutrophils (%) (Auto) 90.3 % Lymphocytes (%) (Auto) 3.8 % Monocytes (%) (Auto) 5.6 % Eosinophils (%) (Auto) 0.0 % Basophils (%) (Auto) 0.0 % Neutrophils # (Auto) 12.98 K/uL Lymphocytes # (Auto) 0.54 K/uL Monocytes # (Auto) 0.80 K/uL Eosinophils # (Auto) 0.00 K/uL Basophils # (Auto) 0.00 K/uL RDW Standard Deviation 50.2 fL RDW Coefficient of Variation 15.3 % Immature Granulocyte % (Auto) 0.3 % Immature Granulocyte # (Auto) 0.04 K/uL Sodium Level 127 mmol/L Potassium Level 4.6 mmol/L Chloride Level 89 mmol/L Carbon Dioxide Level 27 mmol/L Anion Gap 11.0 mmol/L Blood Urea Nitrogen 97 mg/dl Creatinine 1.98 mg/dl Est Creatinine Clear Calc Drug Dose 22.8 ml/min Estimated GFR () 26.6 Estimated GFR (Non- 23.0 BUN/Creatinine Ratio 48.9 Random Glucose 283 mg/dl Calcium Level 10.3 mg/dl Phosphorus Level 3.1 mg/dl Magnesium Level 2.2 mg/dl Test 08/30/17 11:39 Bedside Glucose 334 mg/dl Assessment and Plan 81 y/o F admitted on August 24, 2017, associated with nausea, vomiting and diarrhea x 4 days, and A. fib with rapid ventricular response, she developed acute on chronic respiratory failure required BiPAP, A. fib with rapid ventricular response, stable rate controlled is new identified, no history of A. fib, has been on Cardizem drip, which was switch over to oral Cardizem, Cardizem dose is 360 mg p.o. daily, and continue with metoprolol at 100 mg p.o. twice daily per consulting analyst, cont oral diltiazem and try to avoid high dose beta blockade if possible, continue with Eliquis, For now is stable and improving Possible virus gastroenteritis upon admission, with nausea, vomiting, diarrhea upon admission; resolved, tolerating clear liquid diet, was advanced to type II diabetic diet Continue supportive care, C. difficile negative, Imodium as needed PONCE upon admission likely this due to dehydration , creatinine has been declining today is 1.98 from 1.96, Patient has significant history of CHF and fluid retention history, it is difficult to make judgment is fluid retention or fluid depletion, patient on mild edema, patient is lung has no crackles, and BUN/creatinine ratio is more than 20, I feel is prerenal volume depletion, so will cautious of diuretic, Will check a BMP and chest x-ray two-view Minimal troponin elevation, likely from demand ischemia of a few episodes, history of CAD, Troponin has Trends down 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 - mucous plugging is reported on CT and there is some concern for aspiration, Patient require higher level of oxygen support, which is improving , will use nasal cannula if possible, continue steroid, nebulizer treatment, and supportive care Uncontrolled with A1c 7.2 of diabetic, patient declined using insulin because he is on allergy, patient can resume oral metformin upon discharge, need to be cautious because patient has an elevated creatinine, Has restarted patient home medicine of glipizide,, and the same time I encourage patient to discuss with PCP to start using insulin, BG out of control is also because of the using of Solu-Medrol currently, will tapering some DVT prophylaxis, Talked to patient's updated patient's conditions and care plan, answered all questions, if patient is oxygen level can be approaching to baseline she will be able to be discharged Continued [facility] stay due to: multiple IV medications needed Discharge planning: home
--- NOTE | 2017-08-30 15:11 | DIAGNOSTIC IMAGING REPORT ---
TWO VIEW CHEST CLINICAL HISTORY: Hypoxia. FINDINGS: AP and lateral chest radiographs are compared to study dated 08/26/2017 and correlated with chest CT dated 08/24/2017. The AP view is degraded by patient rotation. The heart is markedly enlarged and there is atherosclerotic calcification of the thoracic aorta. Pulmonary vasculature is noncongested. Chronic interstitial thickening and elevation of the right hemidiaphragm are similar to previous. Opacities are identified at both lung bases and likely represent atelectasis. No large pleural effusion is identified. There is no pneumothorax. The skeletal structures are osteopenic. Degenerative change and hyperkyphosis are noted in the thoracic spine. IMPRESSION: 1. Marked cardiac enlargement without clear radiographic evidence of congestive failure. 2. Bibasilar opacities likely represent scarring/atelectasis. Clinical correlation will be required Electronically signed by: Abdirahman Ruiz M.D. 08/30/2017 3:10 PM Dictated Date/Time: 08/30/2017 3:08 PM
--- NOTE | 2017-08-30 18:08 | Pulmonology Progress Note ---
Pulmonary Progress Note Date of Service Aug 30, 2017. Attending Dr. Davila Subjective Patient is doing well today but continues to have intermittent dyspnea at rest even on high levels of oxygen support. She does note on the high flow oxygen system she creates a great deal of moisture within her nose/narrowed bilaterally in has tremendous leaking. Objective Patient is sitting up in bed today but notably using his accessory muscles during our conversation showing signs of respiratory fatigue. There is also a notable desaturations while she was discussing her case with me down to the low 80s via pulse oximetry. General: Awake alert oriented 3 Respiratory: Decreased breath sounds bilaterally Cardiac: S1-S2 distant heart sounds irregular rhythm Abdomen: Distended but soft nontender no rebound Extremities: 2+ pitting edema in the dependent regions STATION HELPER: Grossly intact cranial nerves II through XII as well as muscle strength and reflexes Assessment & Plan 81-year-old female admitted with acute on chronic respiratory insufficiency: 1. Respiratory insufficiency: Most likely combination of her severe COPD with associated pulmonary hypertension/cor pulmonale which was only exacerbated by atrial fibrillation/flutter. At this time we will continue the patient's current medical regimen and slowly titrate down on her prednisone. 2. Pulmonary hypertension: Patient's previous right heart and left heart catheterization have a pulmonary wedge pressure of 10 and a mean pulmonary arterial pressure of 53 creating a trans-pulmonary diastolic gradient of 30 and a transpulmonary gradient of 43. He is a highly significant numbers suggesting very severe pulmonary hypertension. This is most likely secondary to the patient's underlying cor pulmonale and I agree there is no truly helpful treatment other than oxygen supplementation at this time. I am worried as the patient is unable to come off high oxygen support so I have asked for a family meeting after speaking with the patient's primary care physician who agrees. Data Medications: Current Inpatient Medications Medications (Trade) Dose Ordered Sig/Mayito Route Start Time Stop Time Status Last Admin Dose Admin Atorvastatin Calcium (Lipitor Tab) 80 mg DAILY PO 08/25/17 09:00 09/24/17 08:59 08/30/17 08:52 80 MG Acetaminophen (Tylenol Tab) 650 mg Q4H PRN PO 08/24/17 17:30 09/23/17 17:29 Al Hydrox/Mg Hydrox/Simethicone (Maalox Max Susp) 15 ml Q4H PRN PO 08/24/17 17:30 09/23/17 17:29 Magnesium Hydroxide (Milk Of Magnesia Susp) 30 ml Q12H PRN PO 08/24/17 17:30 09/23/17 17:29 Ondansetron HCl (Zofran Inj) 4 mg Q6H PRN IV 08/24/17 17:30 09/23/17 17:29 08/27/17 14:33 4 MG Morphine Sulfate (MoRPHine SULFATE INJ) 2 mg Q30M PRN IV 08/24/17 17:30 09/07/17 17:29 Polyethylene (Miralax Powder Packet) 17 gm DAILY PRN PO 08/24/17 17:30 09/23/17 17:29 Glucose (Glucose 40% Gel) 15-30 GRAMS 15 GRAMS... UD PRN PO 08/24/17 18:45 09/23/17 18:44 Glucose (Glucose Chew Tab) 4-8 Tablets 4 Tabl... UD PRN PO 08/24/17 18:45 09/23/17 18:44 Dextrose (Dextrose 50% 50ML Syringe) 25-50ML OF 50% DW IV FOR... UD PRN IV 08/24/17 18:45 09/23/17 18:44 Glucagon (Glucagon Inj) 1 mg UD PRN SQ 08/24/17 18:45 09/23/17 18:44 Apixaban (Eliquis Tab) 2.5 mg BID PO 08/25/17 19:30 09/24/17 19:29 08/30/17 08:53 2.5 MG Sodium Chloride ([place] Nasal [place]) 1 sprays PRN PRN NA 08/25/17 20:45 09/24/17 20:44 Calcium/Vitamin D (Caltrate Plus Tab) 1 tab BID PO 08/26/17 09:00 09/25/17 08:59 08/30/17 08:54 1 TAB Diltiazem HCl (Cardizem Cd Cap) 360 mg QAM PO 08/28/17 09:00 09/27/17 08:59 08/30/17 08:53 360 MG Acetylcysteine (Mucomyst 20% Inh Soln) 5 ml BIDR INH 08/27/17 20:00 09/26/17 19:59 08/30/17 08:00 5 ML Albuterol/ Ipratropium (Duoneb) 3 ml Q4R INH 08/27/17 20:00 09/26/17 19:59 08/30/17 15:24 3 ML Salmeterol Xinafoate/ Fluticasone (Advair Diskus 250/50 Inh) 1 puff BID INH 08/27/17 21:00 09/26/17 20:59 08/30/17 08:50 1 PUFF Tiotropium Carmine (Spiriva Handihaler Inhaler) 1 puff QAM INH 08/28/17 09:00 09/27/17 08:59 08/30/17 08:50 1 PUFF Albuterol/ Ipratropium (Duoneb) 3 ml Q2H PRN INH 08/27/17 19:30 09/26/17 19:29 Guaifenesin (Mucinex Contr Rel Tab) 600 mg Q12 PO 08/27/17 21:00 09/26/17 20:59 08/30/17 08:51 600 MG Metoprolol Succinate (Toprol Xl Tab) 100 mg QAM PO 08/29/17 09:00 09/28/17 08:59 08/30/17 08:51 100 MG Prednisone (PredniSONE TAB) 20 mg BID PO 08/30/17 09:00 09/29/17 08:59 08/30/17 09:20 20 MG Glipizide (GlipiZIDE EXTENDED REL TAB) 5 mg QDB PO 08/31/17 07:30 09/30/17 07:29 I & O: 24-Hour Column 08/31/17 08:00 Intake Total 480 ml Output Total 300 ml Balance 180 ml Vital Signs: Date Time Temp Pulse Resp B/P (MAP) Pulse Ox O2 Delivery O2 Flow Rate FiO2 08/30/17 16:00 91 High Flow Oxygen 45 08/30/17 15:34 36.5 89 25 101/55 (70) 89 Oxymask 6.0 08/30/17 15:24 87 20 89 Nasal Cannula 8.0 08/30/17 12:00 91 High Flow Oxygen 45 08/30/17 11:16 92 20 91 Nasal Cannula 45.0 55 08/30/17 08:00 91 High Flow Oxygen 45 08/30/17 07:47 36.5 80 24 111/76 (88) 91 High Flow Oxygen 50 08/30/17 07:25 91 20 91 Nasal Cannula 45.0 55 08/30/17 04:14 36.5 82 15 126/77 (93) 90 High Flow Oxygen 47.0 98 Humidified Oxygen 08/30/17 04:00 High Flow Oxygen 45 08/29/17 23:59 High Flow Oxygen 45 08/29/17 23:33 36.5 93 28 98/72 (81) 90 Oxymask 15.0 08/29/17 20:00 97 Oxymask 08/29/17 19:10 36.7 81 26 93/73 (80) 97 Oxymask 8.0 08/29/17 19:02 88 20 91 Mask 15.0 Laboratory Results: Last 24 Hours Test 08/29/17 19:53 08/30/17 05:24 08/30/17 06:26 08/30/17 11:39 Bedside Glucose 367 mg/dl 314 mg/dl 334 mg/dl White Blood Count 14.36 K/uL Red Blood Count 4.19 M/uL Hemoglobin 12.8 g/dL Hematocrit 37.9 % Mean Corpuscular Volume 90.5 fL Mean Corpuscular Hemoglobin 30.5 pg Mean Corpuscular Hemoglobin Concent 33.8 g/dl Platelet Count 137 K/uL Mean Platelet Volume 10.8 fL Neutrophils (%) (Auto) 90.3 % Lymphocytes (%) (Auto) 3.8 % Monocytes (%) (Auto) 5.6 % Eosinophils (%) (Auto) 0.0 % Basophils (%) (Auto) 0.0 % Neutrophils # (Auto) 12.98 K/uL Lymphocytes # (Auto) 0.54 K/uL Monocytes # (Auto) 0.80 K/uL Eosinophils # (Auto) 0.00 K/uL Basophils # (Auto) 0.00 K/uL RDW Standard Deviation 50.2 fL RDW Coefficient of Variation 15.3 % Immature Granulocyte % (Auto) 0.3 % Immature Granulocyte # (Auto) 0.04 K/uL Sodium Level 127 mmol/L Potassium Level 4.6 mmol/L Chloride Level 89 mmol/L Carbon Dioxide Level 27 mmol/L Anion Gap 11.0 mmol/L Blood Urea Nitrogen 97 mg/dl Creatinine 1.98 mg/dl Est Creatinine Clear Calc Drug Dose 22.8 ml/min Estimated GFR () 26.6 Estimated GFR (Non- 23.0 BUN/Creatinine Ratio 48.9 Random Glucose 283 mg/dl Calcium Level 10.3 mg/dl Phosphorus Level 3.1 mg/dl Magnesium Level 2.2 mg/dl Test 08/30/17 14:23 08/30/17 16:08 Pro-B-Type Natriuretic Peptide 38752 pg/ml Bedside Glucose 414 mg/dl
[2017-08-31] VITALS (12 sets, daily range): BP systolic 92–116; BP diastolic 66–76; PULSE 88–122; TEMP 36.4–36.7; O2SAT 91–96; Ht 160 cm; Wt 87.3 kg
[2017-08-31] MEDS: ALBUT/IPRATROP 3MG/0.5MG NEB 3 ML VIAL INH SCH ×6 (03:37→23:16)
[2017-08-31] MEDS: ACETYLCYSTEINE 20% INHAL SOLN ***DISPENSED BY RESP. INH SCH ×2 (07:02→19:34)
[2017-08-31 07:08] LABS: CALCIUM 10.7 mg/dl (8.5-10.1); CREATININE 2.02 mg/dl (0.60-1.20)
[2017-08-31 07:46] LABS: POTASSIUM 4.5 mmol/L (3.5-5.1)
[2017-08-31] MEDS: FLUTICASONE/SALMETEROL 250/50 (ADVAIR) 14 PUFF/1 INHALER INH SCH ×2 (09:12→19:50)
[2017-08-31] MEDS: ATORVASTATIN 40 MG TAB PO SCH (09:13)
[2017-08-31] MEDS: TIOTROPIUM BROMIDE 5 PUFF/90 MCG INH INH SCH (09:13)
[2017-08-31] MEDS: CALCIUM 600MG + VIT D 400 IU TAB PO SCH ×2 (09:13→19:50)
[2017-08-31] MEDS: APIXABAN 2.5 MG TAB PO SCH ×2 (09:13→19:49)
[2017-08-31] MEDS: GUAIFENESIN 600 MG TABCR PO SCH ×2 (09:15→19:49)
[2017-08-31] MEDS ORDERED: AMIODARONE IV BOLUS / DRIP IV STA (10:15)
[2017-08-31] MEDS ORDERED: FUROSEMIDE 40 MG/4 ML VIAL IV STA (10:26)
--- NOTE | 2017-08-31 10:26 | Cardiology Follow-Up ---
Subjective Date of Service: Aug 31, 2017. Pt evaluation today including: conversation w/ patient, physical exam, lab review, review of studies, review of inpatient medication list History of Present Illness This is an 81-year-old woman who has a history of diabetes mellitus, hypertension, coronary artery disease (identified at catheterization on June 25, 2014) as well as severe pulmonary hypertension. She has had stent placement at [facility] on two occasions by her recollection, not recently. She presents now with vomiting for 4 days, lower abdominal discomfort as well as diarrhea. She was not having chest symptoms, specifically not having palpitations, chest discomfort, etc. She is chronically on oxygen on arrival in the emergency room she was noted to be in atrial fibrillation with a rapid ventricular response. She was started on intravenous diltiazem and heparin. By morning she converted back to sinus rhythm with premature atrial beats. On further discussion with her she uses a pulse oximeter at home, she notices from time to time that her heart rate is elevated (in the 115 bpm range) whereas most the time it is in the 70 bpm range. She is unaware of palpitations but has not been in the hospital either when we have documented atrial fibrillation. I suspect she has this at home and that this is not a new finding. She converted back to atrial fibrillation and we have had a lot of difficulty controlling her atrial arrhythmia, ultimately we titrated her oral medications to diltiazem 360 mg daily and metoprolol succinate 100 mg daily. Her heart rate was well controlled yesterday in atrial fibrillation on this regimen. Currently she is feeling quite well, she is not short of breath this morning although is on supplemental oxygen. She has had no palpitations or chest discomfort. Social History Smoking Status: Former Smoker History of Alcohol Use: No Review of Systems Respiratory: + cough, + dyspnea on exertion, No sputum, No wheezing, No shortness of breath, No dyspnea at rest, No hemoptysis Cardiac: + edema, No chest pain, No orthopnea, No PND, No claudication, No palpitations Medications Cardiovascular: Item Value Date Time Metoprolol 100 mg 08/29/17 0900 Succinate QAM/PO 08/30/17 0851 (Toprol Xl Tab) Diltiazem HCl 360 mg 08/28/17 0900 (Cardizem Cd Cap) QAM/PO 08/30/17 0853 Apixaban 2.5 mg 08/25/17 1930 (Eliquis Tab) BID/PO 08/31/17912 Atorvastatin 80 mg 08/25/17 0900 Calcium DAILY/PO 08/31/17912 (Lipitor Tab) Objective Vital Signs Past 12 Hours Date Time Temp Pulse Resp B/P (MAP) Pulse Ox O2 Delivery O2 Flow Rate FiO2 08/31/17 08:30 Nasal Cannula 6.0 08/31/17 07:54 36.6 115 16 92/75 (81) 95 Oxymask 7.0 08/31/17 07:02 102 18 94 Mask 6.0 08/31/17 04:09 36.4 110 17 112/68 (83) 96 Oxymask 7.0 08/31/17 04:00 Oxymask 7.0 08/31/17 03:37 100 18 91 Mask 7.0 08/31/17 00:35 36.4 88 16 101/66 (78) 91 Oxymask 7.0 08/30/17 23:59 Oxymask 7.0 08/30/17 22:49 93 27 93 Mask 7.0 Last Recorded Weight-Kilograms: 86.800 Physical Exam Constitutional: General Apperance: heathly-appearing, overweight Level of Distress: NAD Ambulation: limited ambulation Lungs: Respiratory effort: no dyspnea Auscultation: no wheezing, decreased breath sounds Cardiovascular: Heart Auscultation: no murmurs, no rubs, no gallops, tachycardia, irregular rate rhythm Peripheral Pulses: Bruits: none appreciated Extremities: edema (+2 bilateral) Data Laboratory Results: Last 24 Hours Test 08/30/17 11:39 08/30/17 14:23 08/30/17 16:08 08/30/17 21:19 Bedside Glucose 334 mg/dl 414 mg/dl 395 mg/dl Pro-B-Type Natriuretic Peptide 18491 pg/ml Test 08/31/17 06:14 08/31/17 06:51 08/31/17 07:27 Sodium Level 127 mmol/L Potassium Level mmol/L 4.5 mmol/L Chloride Level 89 mmol/L Carbon Dioxide Level 29 mmol/L Anion Gap 9.0 mmol/L Blood Urea Nitrogen 101 mg/dl Creatinine 2.02 mg/dl Est Creatinine Clear Calc Drug Dose 22.4 ml/min Estimated GFR () 26.0 Estimated GFR (Non- 22.4 BUN/Creatinine Ratio 50.0 Random Glucose 343 mg/dl Calcium Level 10.7 mg/dl Phosphorus Level 3.0 mg/dl Magnesium Level mg/dl 2.4 mg/dl Beta-Hydroxybutyric Acid mg/dL 1.37 mg/dL Bedside Glucose 342 mg/dl Imaging: Chest x-ray yesterday without congestive heart failure Telemetry reviewed: Atrial fibrillation with a well-controlled heart rate yesterday, heart rate elevated this morning which she has not received her medications Assessment and Plan 1. Atrial flutter/fibrillation: Her presentation atrial flutter is a new diagnosis however I suspect she has had it before as noted in the HPI. Her heart rate was fairly well controlled on metoprolol succinate 100 mg daily and diltiazem CD 240 mg daily yesterday, this morning these medications were held due to borderline low blood pressure. She arrived in atrial fibrillation and was placed on anticoagulation when she was admitted, she had converted to sinus rhythm but now is back in atrial fibrillation. The stroke risk should be low if we convert her back to normal rhythm and that may be the best option, I do not think it is good to have her at such a high heart rate and we are having difficulty with low blood pressure on the medications. I am therefore going to start amiodarone in hopes of converting the rhythm. She should be on long-term anticoagulation, she is on the correct dose of Eliquis. 2. Abnormal cardiac enzymes: She had low-grade abnormal cardiac enzymes on admission but I think this is consistent with demand ischemia from her known coronary artery disease and her rapid heart rate. 3. Coronary disease: She does not have symptoms of myocardial ischemia, but she did not in the past either. She does not have much to suggest active ischemia on her electrocardiogram and her enzymes are more in keeping with demand ischemia. I would not pursue further evaluation at this time. I do think we should get her heart rate under better control however with her history of coronary disease. 4. Pulmonary hypertension: She has a history of pulmonary hypertension, she has severe pulmonary hypertension and tricuspid regurgitation on her current echo but this is similar to before. There is probably little that can be done with this but no doubt it contributes to her edema. 5. Edema: She still has peripheral edema, it may not be worse but her weight has been gradually increasing since admission. She does not seem to be in heart failure on exam however I think she is somewhat fluid overloaded. She is not on a diuretic, although she was on Zaroxolyn at home according to her admission medications. I am going to give her a dose of Lasix today. Her potassium is good. Thank you for allowing me to participate in her care.
[2017-08-31] MEDS ORDERED: AMIODARONE / D5W 100 ML PHARMACY PREPARED IV SCH ×2 (10:35)
[2017-08-31] MEDS ORDERED: 0.2 MICRON FILTER SET 1 EA IV SCH (10:35)
[2017-08-31] MEDS ORDERED: AMIODARONE / D5W 200 ML IV SCH (10:45)
[2017-08-31] MEDS ORDERED: FUROSEMIDE INJ 40 MG in SYRINGE 0 ML IV ONE (11:10)
[2017-08-31] MEDS: METOPROLOL SUCC 50MG EXT REL TAB PO SCH (12:58)
--- NOTE | 2017-08-31 13:05 | Pulmonology Progress Note ---
Pulmonary Progress Note Date of Service Aug 31, 2017. Attending Dr. Davila Subjective Patient able to sit up in bed but still becomes tachypneic and desaturates on 7 L nasal cannula Objective Patient able to sit up in bed but notably uses accessory muscles and becomes tachypneic during our conversation. She also desaturates quickly on 7 L nasal cannula General: Awake alert oriented 3 Respiratory: Decreased breath sounds bilaterally Cardiac: S1-S2 distant heart sounds irregular rhythm Abdomen: Distended but soft nontender no rebound Extremities: 2+ pitting edema in the dependent regions ASSOCIATE CHEMIST: Grossly intact cranial nerves II through XII as well as muscle strength and reflexes Assessment & Plan 81-year-old female admitted with acute on chronic respiratory insufficiency: 1. Respiratory Insufficiency: Patient does have a diagnosis based off previous right heart catheterization of severe pulmonary hypertension which might be secondary to cor pulmonale and exacerbated by atrial fibrillation/flutter at times. Currently being monitored by cardiology but I did speak to the at length yesterday about her previous right heart catheterization and her severe pulmonary hypertension. We have set up a time to meet with the family on 09/03/2017 at 10 AM for full discussion of her severe pulmonary hypertension. 2. Pulmonary hypertension: Patient's previous right heart and left heart catheterization have a pulmonary wedge pressure of 10 and a mean pulmonary arterial pressure of 53 creating a trans-pulmonary diastolic gradient of 30 and a transpulmonary gradient of 43. He is a highly significant numbers suggesting very severe pulmonary hypertension. This is most likely secondary to the patient's underlying cor pulmonale and I agree there is no truly helpful treatment other than oxygen supplementation at this time. I am worried as the patient is unable to come off high oxygen support so I have asked for a family meeting after speaking with the patient's primary care physician who agrees. Data Medications: Current Inpatient Medications Medications (Trade) Dose Ordered Sig/Mayito Route Start Time Stop Time Status Last Admin Dose Admin Atorvastatin Calcium (Lipitor Tab) 80 mg DAILY PO 08/25/17 09:00 09/24/17 08:59 08/31/17 09:13 80 MG Acetaminophen (Tylenol Tab) 650 mg Q4H PRN PO 08/24/17 17:30 09/23/17 17:29 Al Hydrox/Mg Hydrox/Simethicone (Maalox Max Susp) 15 ml Q4H PRN PO 08/24/17 17:30 09/23/17 17:29 Magnesium Hydroxide (Milk Of Magnesia Susp) 30 ml Q12H PRN PO 08/24/17 17:30 09/23/17 17:29 Ondansetron HCl (Zofran Inj) 4 mg Q6H PRN IV 08/24/17 17:30 09/23/17 17:29 08/27/17 14:33 4 MG Morphine Sulfate (MoRPHine SULFATE INJ) 2 mg Q30M PRN IV 08/24/17 17:30 09/07/17 17:29 Polyethylene (Miralax Powder Packet) 17 gm DAILY PRN PO 08/24/17 17:30 09/23/17 17:29 Glucose (Glucose 40% Gel) 15-30 GRAMS 15 GRAMS... UD PRN PO 08/24/17 18:45 09/23/17 18:44 Glucose (Glucose Chew Tab) 4-8 Tablets 4 Tabl... UD PRN PO 08/24/17 18:45 09/23/17 18:44 Dextrose (Dextrose 50% 50ML Syringe) 25-50ML OF 50% DW IV FOR... UD PRN IV 08/24/17 18:45 09/23/17 18:44 Glucagon (Glucagon Inj) 1 mg UD PRN SQ 08/24/17 18:45 09/23/17 18:44 Apixaban (Eliquis Tab) 2.5 mg BID PO 08/25/17 19:30 09/24/17 19:29 08/31/17 09:13 2.5 MG Sodium Chloride (Platte Nasal Redig) 1 sprays PRN PRN NA 08/25/17 20:45 09/24/17 20:44 Calcium/Vitamin D (Caltrate Plus Tab) 1 tab BID PO 08/26/17 09:00 09/25/17 08:59 08/31/17 09:13 1 TAB Diltiazem HCl (Cardizem Cd Cap) 360 mg QAM PO 08/28/17 09:00 09/27/17 08:59 Future Hold 08/30/17 08:53 360 MG Acetylcysteine (Mucomyst 20% Inh Soln) 5 ml BIDR INH 08/27/17 20:00 09/26/17 19:59 08/31/17 07:02 5 ML Albuterol/ Ipratropium (Duoneb) 3 ml Q4R INH 08/27/17 20:00 09/26/17 19:59 08/31/17 11:03 3 ML Salmeterol Xinafoate/ Fluticasone (Advair Diskus 250/50 Inh) 1 puff BID INH 08/27/17 21:00 09/26/17 20:59 08/31/17 09:12 1 PUFF Tiotropium [place] (Spiriva Handihaler Inhaler) 1 puff QAM INH 08/28/17 09:00 09/27/17 08:59 08/31/17 09:13 1 PUFF Albuterol/ Ipratropium (Duoneb) 3 ml Q2H PRN INH 08/27/17 19:30 09/26/17 19:29 Guaifenesin (Mucinex Contr Rel Tab) 600 mg Q12 PO 08/27/17 21:00 09/26/17 20:59 08/31/17 09:15 600 MG Metoprolol Succinate (Toprol Xl Tab) 100 mg QAM PO 08/29/17 09:00 09/28/17 08:59 Future hold 08/31/17 12:58 100 MG Prednisone (PredniSONE TAB) 20 mg BID PO 08/30/17 09:00 09/29/17 08:59 08/31/17 09:15 20 MG Glipizide (GlipiZIDE EXTENDED REL TAB) 5 mg QDB PO 08/31/17 07:30 09/30/17 07:29 08/31/17 09:15 5 MG Amiodarone HCL/ Dextrose 200 ml @ 33.3 mls/hr Q6H1M IV 08/31/17 10:45 08/31/17 16:45 08/31/17 11:05 33.3 MLS/HR Amiodarone HCL/ Dextrose 200 ml @ 16.7 mls/hr [id number] IV 08/31/17 16:45 09/30/17 16:44 Vital Signs: Date Time Temp Pulse Resp B/P (MAP) Pulse Ox O2 Delivery O2 Flow Rate FiO2 08/31/17 12:15 Nasal Cannula 6.0 08/31/17 11:04 110 18 94 Nasal Cannula 5.0 08/31/17 11:01 36.5 114 21 116/76 (89) 92 08/31/17 08:30 Nasal Cannula 6.0 08/31/17 07:54 36.6 115 16 92/75 (81) 95 Oxymask 7.0 08/31/17 07:02 102 18 94 Mask 6.0 08/31/17 04:09 36.4 110 17 112/68 (83) 96 Oxymask 7.0 08/31/17 04:00 Oxymask 7.0 08/31/17 03:37 100 18 91 Mask 7.0 08/31/17 00:35 36.4 88 16 101/66 (78) 91 Oxymask 7.0 08/30/17 23:59 Oxymask 7.0 08/30/17 22:49 93 27 93 Mask 7.0 08/30/17 20:00 Oxymask 7.0 08/30/17 19:34 86 20 94 Mask 7.0 08/30/17 19:00 36.4 98 24 117/81 (93) 89 Oxymask 7.0 08/30/17 16:00 91 High Flow Oxygen 45 08/30/17 15:34 36.5 89 25 101/55 (70) 89 Oxymask 6.0 08/30/17 15:24 87 20 89 Nasal Cannula 8.0 Laboratory Results: Last 24 Hours Test 08/30/17 14:23 08/30/17 16:08 08/30/17 21:19 08/31/17 06:14 Pro-B-Type Natriuretic Peptide 06265 pg/ml Bedside Glucose 414 mg/dl 395 mg/dl Sodium Level 127 mmol/L Potassium Level mmol/L Chloride Level 89 mmol/L Carbon Dioxide Level 29 mmol/L Anion Gap 9.0 mmol/L Blood Urea Nitrogen 101 mg/dl Creatinine 2.02 mg/dl Est Creatinine Clear Calc Drug Dose 22.4 ml/min Estimated GFR () 26.0 Estimated GFR (Non- 22.4 BUN/Creatinine Ratio 50.0 Random Glucose 343 mg/dl Calcium Level 10.7 mg/dl Phosphorus Level 3.0 mg/dl Magnesium Level mg/dl Beta-Hydroxybutyric Acid mg/dL Test 08/31/17 06:51 08/31/17 07:27 08/31/17 11:18 Bedside Glucose 342 mg/dl 398 mg/dl Potassium Level 4.5 mmol/L Magnesium Level 2.4 mg/dl Beta-Hydroxybutyric Acid 1.37 mg/dL
--- NOTE | 2017-08-31 17:00 | Progress Note ---
Subjective Date of Service: Aug 31, 2017. Subjective Pt evaluation today including: conversation w/ patient, conversation w/ family , physical exam, chart review, lab review, review of studies, conversation w/ air quality consultant, review of inpatient medication list Sitting in recliner, need 7 L nasal cannula oxygen, mild labored breathing, mild tachypneic when speaking, but generally looks good, feeling ok, eating and voiding good, last night blood glucose was higher than 400, heart rate was up to 110, amiodarone drip is on Problem List Medical Problems: (1) Dehydration Status: Acute (2) Elevated troponin Status: Acute (3) Left sided abdominal pain Status: Acute Review of Systems Constitutional: + weakness, + fatigue, No fever, No chills, No sweats, No weight loss, No problem reported Eyes: No worsening of vision, No eye pain, No redness, No discharge, No diplopia ENT: No hearing loss, No unusual epistaxis, No nasal symptoms, No sore throat, No tinnitus, No dental problems, No trouble swallowing Respiratory: + cough, + shortness of breath, + dyspnea at rest (Mild), No sputum, No wheezing, No dyspnea on exertion, No hemoptysis Cardiac: + edema (1-2+), No chest pain, No orthopnea, No PND, No claudication, No palpitations Abdomen: No pain, No nausea, No vomiting, No diarrhea, No constipation Musculoskeletal: No joint pain, No muscle pain, No swelling, No calf pain Female : No dysuria, No urinary frequency, No hematuria, No incontinence, No abnormal vaginal bleeding, No vaginal discharge Neurologic: No memory loss, No paralysis, No weakness, No numbness/tingling, No vertigo, No balance problems Psychiatric: No depression symptoms, No anhedonism, No anxiety, No insomnia, No substance abuse Heme: No abnormal bleeding/bruising, No clotting problems, No swollen lymph nodes, No night sweats Endo: No fatigue, No excessive thirst, No excessive urination Skin: No rash, No itch, No new/changing skin lesions, No color change, No bleeding Objective Vital Signs Date Time Temp Pulse Resp B/P (MAP) Pulse Ox O2 Delivery O2 Flow Rate FiO2 08/31/17 15:34 109 18 91 Nasal Cannula 5.0 08/31/17 12:15 Nasal Cannula 6.0 08/31/17 11:04 110 18 94 Nasal Cannula 5.0 08/31/17 11:01 36.5 114 21 116/76 (89) 92 08/31/17 08:30 Nasal Cannula 6.0 08/31/17 07:54 36.6 115 16 92/75 (81) 95 Oxymask 7.0 08/31/17 07:02 102 18 94 Mask 6.0 08/31/17 04:09 36.4 110 17 112/68 (83) 96 Oxymask 7.0 08/31/17 04:00 Oxymask 7.0 08/31/17 03:37 100 18 91 Mask 7.0 08/31/17 00:35 36.4 88 16 101/66 (78) 91 Oxymask 7.0 08/30/17 23:59 Oxymask 7.0 08/30/17 22:49 93 27 93 Mask 7.0 08/30/17 20:00 Oxymask 7.0 08/30/17 19:34 86 20 94 Mask 7.0 08/30/17 19:00 36.4 98 24 117/81 (93) 89 Oxymask 7.0 Physical Exam General Appearance: WD/WN, no apparent distress, + obese Eyes: normal inspection, PERRL, EOMI, sclerae normal ENT: normal ENT inspection, hearing grossly normal, pharynx normal, + pertinent finding (Bilateral face mild cyanosis which is new) Neck: supple, no adenopathy, thyroid normal, no JVD, no carotid bruits, trachea midline Respiratory/Chest: chest non-tender, normal breath sounds, no respiratory distress, no accessory muscle use, + decreased breath sounds Cardiovascular: regular rate, rhythm, no gallop, no JVD, no murmur, + irregularly irregular, + pertinent finding (1-2+ pitting edema) Abdomen: normal bowel sounds, non tender, soft, no organomegaly, no pulsatile mass Extremities: normal range of motion, non-tender, normal inspection, no pedal edema, no calf tenderness, normal capillary refill, pelvis stable, + swelling (1 -2+ pitting edema) Neurologic/Psychiatric: etl application developer II-XII nml as tested, no motor/sensory deficits, alert, normal mood/affect, oriented x 3 Skin: normal color, warm/dry, no rash Lymphatic: no adenopathy Laboratory Results Last 24 Hours Test 08/30/17 21:19 08/31/17 06:14 08/31/17 06:51 08/31/17 07:27 Bedside Glucose 395 mg/dl 342 mg/dl Sodium Level 127 mmol/L Potassium Level mmol/L 4.5 mmol/L Chloride Level 89 mmol/L Carbon Dioxide Level 29 mmol/L Anion Gap 9.0 mmol/L Blood Urea Nitrogen 101 mg/dl Creatinine 2.02 mg/dl Est Creatinine Clear Calc Drug Dose 22.4 ml/min Estimated GFR () 26.0 Estimated GFR (Non- 22.4 BUN/Creatinine Ratio 50.0 Random Glucose 343 mg/dl Calcium Level 10.7 mg/dl Phosphorus Level 3.0 mg/dl Magnesium Level mg/dl 2.4 mg/dl Beta-Hydroxybutyric Acid mg/dL 1.37 mg/dL Test 08/31/17 11:18 Bedside Glucose 398 mg/dl Assessment and Plan 81 y/o F admitted on August 24, 2017, associated with nausea, vomiting and diarrhea x 4 days, and A. fib with rapid ventricular response, she developed acute on chronic respiratory failure required BiPAP, A. fib with rapid ventricular response, rate not well controlled is new identified, no history of A. fib, has been on Cardizem drip, which was switch over to oral Cardizem, Cardizem dose is 360 mg p.o. daily, and continue with metoprolol at 100 mg p.o. 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 , pulmonary hypertension, mucous plugging is reported on CT and there is some concern for aspiration, leak hunter input appreciated, possible poor prognosis and difficult to be off high flow oxygen, continue steroid, nebulizer treatment, and supportive care Uncontrolled with A1c 7.2 of diabetic, patient declined using insulin because he is on allergy, patient can resume oral metformin upon discharge, need to be cautious because patient has an elevated creatinine, Increase glipizide to 5 mg, blood glucose a little bit better, but without insulin would never be able to be optimized, DVT prophylaxis, Talked to patient's updated patient's conditions and care plan, answered all questions, Possible very poor prognosis, leak hunter is going to talk to patient's and son, if patient is oxygen level can be approaching to baseline she will be able to be discharged Continued [facility] stay due to: multiple IV medications needed Discharge planning: uncertain
[2017-08-31] MEDS: AMIODARONE / D5W 200 ML IV SCH (17:56)
[2017-08-31] MEDS ORDERED: NURSING VERBAL MED ORDER ONE (18:15)
[2017-08-31] MEDS ORDERED: FUROSEMIDE INJ 80 MG in SYRINGE 0 ML IV STA (18:36)
--- NOTE | 2017-08-31 19:26 | Nephrology Consultation ---
Nephrology Consultation Date & Providers Date of Consultation: Aug 31, 2017. Primary Care Provider: Thomas Maxwell M.D. Referring Provider: Reason for Consultation PONCE History of Present Illness Mrs. Arlen Boswell is an 81-year-old female with acute kidney injury. The patient was seen and evaluated this afternoon in her hospital room. Baseline creatinine is normal (<1 mg/dL). Over the past few days, serum creatinine has risen from 1.7 to 2.0 mg/dL. Metabolic profile is otherwise normal. The patient is non-oliguric. Renal US was normal. UA is bland with >30 epithelial and 5-10 RBC/ppf. Nephrology consultation was requested to assist with PONCE. Medical history is notable for diabetes mellitus II, hypertension, coronary artery disease, and severe pulmonary hypertension. Medical records from the inpatient and outpatient EMR were reviewed in detail today. The patient's medical history was discussed with Dr. Davila as well. The patient remains dependent on oxygen 5-6 L/min with intermittent CPAP. She describes a fairly progressive decline in her respiratory status over several weeks. Arlen admitted that she has been very limited to a sedentary lifestyle with increasing difficulties even with small tasks. Arlen was admitted to [facility] with several days of vomiting and diarrhea. These symptoms have improved. On presentation, she was found to be in atrial fibrillation with a rapid ventricular response. Amiodarone infusion was started today to assist with rhythm control. The patient was sitting in her bedside chair. She reported stable dyspnea at rest and limited activity tolerance. Her appetite is fair. She denies chest pain or palpitations. Arlen has been refusing insulin however she is agreeable to try transitioning to insulin at this time. Past Medical/Surgical History Medical: Severe pulmonary hypertension attributed to cor pulmonale Obesity Diabetes mellitus II, HgbA1c 7.2 Hypertension CAD Surgical: R heart catheterization at [facility] [place], coronary angiography '15 Allergies Coded Allergies: Insulin (Verified Adverse Reaction, Unknown, other, 08/31/17) Patient states that she has an insulin allergy that caused cardiac arrest, however she admitted to nursing that she is not allergic to insulin, she just does not want to take it. Inpatient Medications Current Inpatient Medications Medications (Trade) Dose Ordered Sig/Mayito Route Start Time Stop Time Status Last Admin Dose Admin Atorvastatin Calcium (Lipitor Tab) 80 mg DAILY PO 3/8/18 09:00 09/24/17 08:59 08/31/17 09:13 80 MG Acetaminophen (Tylenol Tab) 650 mg Q4H PRN PO 08/24/17 17:30 09/23/17 17:29 Al Hydrox/Mg Hydrox/Simethicone (Maalox Max Susp) 15 ml Q4H PRN PO 08/24/17 17:30 09/23/17 17:29 Magnesium Hydroxide (Milk Of Magnesia Susp) 30 ml Q12H PRN PO 08/24/17 17:30 09/23/17 17:29 Ondansetron HCl (Zofran Inj) 4 mg Q6H PRN IV 08/24/17 17:30 09/23/17 17:29 08/27/17 14:33 4 MG Morphine Sulfate (MoRPHine SULFATE INJ) 2 mg Q30M PRN IV 08/24/17 17:30 09/07/17 17:29 Polyethylene (Miralax Powder Packet) 17 gm DAILY PRN PO 08/24/17 17:30 09/23/17 17:29 Glucose (Glucose 40% Gel) 15-30 GRAMS 15 GRAMS... UD PRN PO 08/24/17 18:45 09/23/17 18:44 Glucose (Glucose Chew Tab) 4-8 Tablets 4 Tabl... UD PRN PO 08/24/17 18:45 09/23/17 18:44 Dextrose (Dextrose 50% 50ML Syringe) 25-50ML OF 50% DW IV FOR... UD PRN IV 08/24/17 18:45 09/23/17 18:44 Glucagon (Glucagon Inj) 1 mg UD PRN SQ 08/24/17 18:45 09/23/17 18:44 Apixaban (Eliquis Tab) 2.5 mg BID PO 08/25/17 19:30 09/24/17 19:29 08/31/17 09:13 2.5 MG Sodium Chloride ([place] Nasal [place]) 1 sprays PRN PRN NA 08/25/17 20:45 09/24/17 20:44 Calcium/Vitamin D (Caltrate Plus Tab) 1 tab BID PO 08/26/17 09:00 09/25/17 08:59 08/31/17 09:13 1 TAB Diltiazem HCl (Cardizem Cd Cap) 360 mg QAM PO 08/28/17 09:00 09/27/17 08:59 Future Hold 08/30/17 08:53 360 MG Acetylcysteine (Mucomyst 20% Inh Soln) 5 ml BIDR INH 08/27/17 20:00 09/26/17 19:59 08/31/17 07:02 5 ML Albuterol/ Ipratropium (Duoneb) 3 ml Q4R INH 08/27/17 20:00 09/26/17 19:59 08/31/17 15:34 3 ML Salmeterol Xinafoate/ Fluticasone (Advair Diskus 250/50 Inh) 1 puff BID INH 08/27/17 21:00 09/26/17 20:59 08/31/17 09:12 1 PUFF Tiotropium [place] (Spiriva Handihaler Inhaler) 1 puff QAM INH 08/28/17 09:00 09/27/17 08:59 08/31/17 09:13 1 PUFF Albuterol/ Ipratropium (Duoneb) 3 ml Q2H PRN INH 08/27/17 19:30 09/26/17 19:29 Guaifenesin (Mucinex Contr Rel Tab) 600 mg Q12 PO 08/27/17 21:00 09/26/17 20:59 08/31/17 09:15 600 MG Metoprolol Succinate (Toprol Xl Tab) 100 mg QAM PO 08/29/17 09:00 09/28/17 08:59 Future hold 08/31/17 12:58 100 MG Prednisone (PredniSONE TAB) 20 mg BID PO 08/30/17 09:00 09/29/17 08:59 08/31/17 09:15 20 MG Glipizide (GlipiZIDE EXTENDED REL TAB) 5 mg QDB PO 08/31/17 07:30 09/30/17 07:29 08/31/17 09:15 5 MG Amiodarone HCL/ Dextrose 200 ml @ 16.7 mls/hr [id number] IV 08/31/17 16:45 09/30/17 16:44 08/31/17 17:56 16.7 MLS/HR Family History No pertinent family history Social History Smoking Status: Former Smoker Smokeless Tobacco Use: No Drug Use: none Marital Status: Occupation: unemployed Review of Systems A complete review of systems was performed. Pertinent positives are noted above. All other systems are negative. Physical Exam Date Time Temp Pulse Resp B/P (MAP) Pulse Ox O2 Delivery O2 Flow Rate FiO2 08/31/17 16:00 CPAP 5.0 08/31/17 15:34 109 18 91 Nasal Cannula 5.0 08/31/17 15:22 36.7 122 27 103/68 (80) 92 6.0 08/31/17 12:15 Nasal Cannula 6.0 08/31/17 11:04 110 18 94 Nasal Cannula 5.0 08/31/17 11:01 36.5 114 21 116/76 (89) 92 08/31/17 08:30 Nasal Cannula 6.0 08/31/17 07:54 36.6 115 16 92/75 (81) 95 Oxymask 7.0 08/31/17 07:02 102 18 94 Mask 6.0 08/31/17 04:09 36.4 110 17 112/68 (83) 96 Oxymask 7.0 08/31/17 04:00 Oxymask 7.0 08/31/17 03:37 100 18 91 Mask 7.0 08/31/17 00:35 36.4 88 16 101/66 (78) 91 Oxymask 7.0 08/30/17 23:59 Oxymask 7.0 08/30/17 22:49 93 27 93 Mask 7.0 08/30/17 20:00 Oxymask 7.0 08/30/17 19:34 86 20 94 Mask 7.0 08/30/17 19:00 36.4 98 24 117/81 (93) 89 Oxymask 7.0 General Appearance: + obese, + pertinent finding (mildly tachypnic at rest) Head: normocephalic, atraumatic Eyes: normal inspection, sclerae normal ENT: normal ENT inspection, + pertinent finding (oral mucosa slightly dry) Neck: supple, + JVD Respiratory/Chest: + respiratory distress (mildly increased work of breating), + rales (few scattered) Cardiovascular: no gallop, no murmur, + irregularly irregular Abdomen/GI: non tender, soft Extremities/Musculoskelatal: normal inspection, + pedal edema Neurologic/Psych: alert, normal mood/affect Laboratory Results Last 24 Hours Test 08/30/17 21:19 08/31/17 06:14 08/31/17 06:51 08/31/17 07:27 Bedside Glucose 395 mg/dl 342 mg/dl Sodium Level 127 mmol/L Potassium Level mmol/L 4.5 mmol/L Chloride Level 89 mmol/L Carbon Dioxide Level 29 mmol/L Anion Gap 9.0 mmol/L Blood Urea Nitrogen 101 mg/dl Creatinine 2.02 mg/dl Est Creatinine Clear Calc Drug Dose 22.4 ml/min Estimated GFR () 26.0 Estimated GFR (Non- 22.4 BUN/Creatinine Ratio 50.0 Random Glucose 343 mg/dl Calcium Level 10.7 mg/dl Phosphorus Level 3.0 mg/dl Magnesium Level mg/dl 2.4 mg/dl Beta-Hydroxybutyric Acid mg/dL 1.37 mg/dL Test 08/31/17 11:18 08/31/17 16:10 Bedside Glucose 398 mg/dl 353 mg/dl Impression (1) Acute renal insufficiency (2) Moderate to severe pulmonary hypertension (3) Atrial fibrillation with RVR (4) HTN (hypertension) (5) DM (diabetes mellitus) (6) Cor pulmonale Mrs. Arlen Boswell is an 81-year-old female with acute kidney injury. Medical history is complicated by atrial fibrillation with RVR, uncontrolled diabetes mellitus, acute on chronic diastolic CHF and right heart failure and severe pulmonary hypertension. PONCE is consistent with prerenal azotemia as well as ATN. The patient is in a net positive fluid balance. She is in at least mild respiratory distress with increased hypoxia. An additional 80 mg furosemide was provided this evening. I discussed the complicated nature of the patient's cardiorenal syndrome today. We reviewed the difficulties in management. This was also discussed with Dr. Davila today. I also reviewed my concerns with using glipizide and metformin at this time. Arlen was agreeable to start insulin to assist with blood glucose control in this setting. Renal US was normal. UA is bland. Metabolic profile is otherwise normal. Recommendations -- Furosemide 80 mg now, continue as needed to encourage a net negative fluid balance -- Document I/O's -- Repeat metabolic profile tomorrow AM -- Hold glipizide and metformin, start SSI for BG control -- Medications are otherwise appropriate for renal function -- No current indication for [employer], given the patients chronic cardiopulmonary problems hemodialysis is unlikely to provide any clinical benefit -- Renal diet
[2017-09-01] VITALS (15 sets, daily range): BP systolic 91–122; BP diastolic 62–75; PULSE 104–123; TEMP 36.4–37.7; O2SAT 93–100
[2017-09-01] MEDS: ALBUT/IPRATROP 3MG/0.5MG NEB 3 ML VIAL INH SCH ×6 (03:19→23:54)
[2017-09-01] MEDS: AMIODARONE / D5W 200 ML IV SCH ×2 (04:38→15:59)
[2017-09-01 06:38] LABS: MEAN CELL VOLUME 90.9 fL (80-100); MEAN CORPUSCULAR HGB CONC 34.1 g/dl (32-36); MEAN PLATELET VOLUME 10.8 fL (7.4-10.4); PLATELET COUNT 135 K/uL (130-400); RED CELL DISTRIBUTION WIDTH CV 15.1 % (11.5-14.5); RED CELL DISTRIBUTION WIDTH SD 50.8 fL (36.4-46.3)
[2017-09-01 07:07] LABS: ALBUMIN 3.2 gm/dl (3.4-5.0); CALCIUM 10.5 mg/dl (8.5-10.1); CREATININE 1.83 mg/dl (0.60-1.20); POTASSIUM 4.1 mmol/L (3.5-5.1)
[2017-09-01] MEDS: ACETYLCYSTEINE 20% INHAL SOLN ***DISPENSED BY RESP. INH SCH ×2 (07:07→19:28)
[2017-09-01] MEDS: FLUTICASONE/SALMETEROL 250/50 (ADVAIR) 14 PUFF/1 INHALER INH SCH ×2 (07:48→20:30)
[2017-09-01] MEDS: CALCIUM 600MG + VIT D 400 IU TAB PO SCH ×2 (07:48→20:31)
[2017-09-01] MEDS: GUAIFENESIN 600 MG TABCR PO SCH ×2 (07:49→20:32)
[2017-09-01] MEDS: ATORVASTATIN 40 MG TAB PO SCH (07:49)
[2017-09-01] MEDS: METOPROLOL SUCC 50MG EXT REL TAB PO SCH (07:49)
[2017-09-01] MEDS: APIXABAN 2.5 MG TAB PO SCH ×2 (07:49→20:31)
--- NOTE | 2017-09-01 08:29 | Nephrology Progress Note ---
Nephrology Progress Note Date of Service Sep 01, 2017. Chief Complaint PONCE Subjective No acute events overnight. Arlen feels well this morning. She reports sleeping well last night. Dyspnea is improving. She denies palpitations. She denies lightheadedness or dizziness. She denies chest pain. No fevers or chills. Appetite is good. Review of Systems A complete review of systems was performed. Pertinent positives are noted above. All other systems are negative. Vital Signs Last 8 Hrs Date Time Temp Pulse Resp B/P (MAP) Pulse Ox O2 Delivery O2 Flow Rate FiO2 09/01/17 07:28 36.6 111 16 122/62 (82) 100 Nasal Cannula 4.0 09/01/17 05:56 36.4 104 25 96/69 (78) 99 Nasal Cannula 5.0 09/01/17 04:10 Nasal Cannula 5.0 09/01/17 03:20 112 20 94 Nasal Cannula 5.0 09/01/17 00:36 36.5 111 25 97/75 (82) 93 5.0 Last Recorded Weight Weight (Kilograms): 86.900 Physical Exam General Appearance: WD/WN, no apparent distress Head: normocephalic, atraumatic Eyes: normal inspection, sclerae normal ENT: normal ENT inspection, pharynx normal, + pertinent finding (oral mucosa slightly dry) Neck: supple, + JVD (10 cm) Respiratory/Chest: no respiratory distress, no accessory muscle use, + rales Cardiovascular: + tachycardia, + irregularly irregular Abdomen/GI: non tender, soft Extremities/Musculoskelatal: normal inspection, + pedal edema Neurologic/Psych: alert, normal mood/affect Family History No pertinent family history Social History Smokeless Tobacco Use: No Drug Use: none Marital Status: Occupation: unemployed Laboratory Results Past 24 Hours 09/01/17 06:27 09/01/17 06:27 Test 08/31/17 11:18 08/31/17 16:10 08/31/17 20:39 09/01/17 06:27 Bedside Glucose 398 mg/dl (70-90) 353 mg/dl (70-90) 351 mg/dl (70-90) Red Blood Count 4.51 M/uL (4.2-5.4) Mean Corpuscular Volume 90.9 fL (80-100) Mean Corpuscular Hemoglobin 31.0 pg (25-34) Mean Corpuscular Hemoglobin Concent 34.1 g/dl (32-36) RDW Standard Deviation 50.8 fL (36.4-46.3) RDW Coefficient of Variation 15.1 % (11.5-14.5) Mean Platelet Volume 10.8 fL (7.4-10.4) Anion Gap 11.0 mmol/L (3-11) Est Creatinine Clear Calc Drug Dose 24.8 ml/min Estimated GFR () 29.3 Estimated GFR (Non- 25.2 BUN/Creatinine Ratio 52.0 (10-20) Calcium Level 10.5 mg/dl (8.5-10.1) Total Bilirubin 1.2 mg/dl (0.2-1) Aspartate Amino Transf (AST/SGOT) 26 U/L (15-37) Alanine Aminotransferase (ALT/SGPT) 38 U/L (12-78) Alkaline Phosphatase 159 U/L (45-117) Total Protein 7.0 gm/dl (6.4-8.2) Albumin 3.2 gm/dl (3.4-5.0) Globulin 3.8 gm/dl (2.5-4.0) Albumin/Globulin Ratio 0.8 (0.9-2) Beta-Hydroxybutyric Acid 1.54 mg/dL (0.2-2.81) Test 09/01/17 06:35 Bedside Glucose 321 mg/dl (70-90) Allergies Coded Allergies: Insulin (Verified Adverse Reaction, Unknown, other, 08/31/17) Patient states that she has an insulin allergy that caused cardiac arrest, however she admitted to nursing that she is not allergic to insulin, she just does not want to take it. Medications Current Inpatient Medications Medications (Trade) Dose Ordered Sig/Mayito Route Start Time Stop Time Status Last Admin Dose Admin Atorvastatin Calcium (Lipitor Tab) 80 mg DAILY PO 08/25/17 09:00 09/24/17 08:59 09/01/17 07:49 80 MG Acetaminophen (Tylenol Tab) 650 mg Q4H PRN PO 08/24/17 17:30 09/23/17 17:29 Al Hydrox/Mg Hydrox/Simethicone (Maalox Max Susp) 15 ml Q4H PRN PO 08/24/17 17:30 09/23/17 17:29 Magnesium Hydroxide (Milk Of Magnesia Susp) 30 ml Q12H PRN PO 08/24/17 17:30 09/23/17 17:29 Ondansetron HCl (Zofran Inj) 4 mg Q6H PRN IV 08/24/17 17:30 09/23/17 17:29 08/27/17 14:33 4 MG Morphine Sulfate (MoRPHine SULFATE INJ) 2 mg Q30M PRN IV 08/24/17 17:30 09/07/17 17:29 Polyethylene (Miralax Powder Packet) 17 gm DAILY PRN PO 08/24/17 17:30 09/23/17 17:29 Glucose (Glucose 40% Gel) 15-30 GRAMS 15 GRAMS... UD PRN PO 08/24/17 18:45 09/23/17 18:44 Glucose (Glucose Chew Tab) 4-8 Tablets 4 Tabl... UD PRN PO 08/24/17 18:45 09/23/17 18:44 Dextrose (Dextrose 50% 50ML Syringe) 25-50ML OF 50% DW IV FOR... UD PRN IV 08/24/17 18:45 09/23/17 18:44 Glucagon (Glucagon Inj) 1 mg UD PRN SQ 08/24/17 18:45 09/23/17 18:44 Apixaban (Eliquis Tab) 2.5 mg BID PO 08/25/17 19:30 09/24/17 19:29 09/01/17 07:49 2.5 MG Sodium Chloride ([place] Nasal [place]) 1 sprays PRN PRN NA 08/25/17 20:45 09/24/17 20:44 Calcium/Vitamin D (Caltrate Plus Tab) 1 tab BID PO 08/26/17 09:00 09/25/17 08:59 09/01/17 07:48 1 TAB Diltiazem HCl (Cardizem Cd Cap) 360 mg QAM PO 08/28/17 09:00 09/27/17 08:59 Future Hold 08/30/17 08:53 360 MG Acetylcysteine (Mucomyst 20% Inh Soln) 5 ml BIDR INH 08/27/17 20:00 09/26/17 19:59 09/01/17 07:07 5 ML Albuterol/ Ipratropium (Duoneb) 3 ml Q4R INH 08/27/17 20:00 09/26/17 19:59 09/01/17 07:07 3 ML Salmeterol Xinafoate/ Fluticasone (Advair Diskus 250/50 Inh) 1 puff BID INH 08/27/17 21:00 09/26/17 20:59 09/01/17 07:48 1 PUFF Tiotropium [place] (Spiriva Handihaler Inhaler) 1 puff QAM INH 08/28/17 09:00 09/27/17 08:59 08/31/17 09:13 1 PUFF Albuterol/ Ipratropium (Duoneb) 3 ml Q2H PRN INH 08/27/17 19:30 09/26/17 19:29 Guaifenesin (Mucinex Contr Rel Tab) 600 mg Q12 PO 08/27/17 21:00 09/26/17 20:59 09/01/17 07:49 600 MG Metoprolol Succinate (Toprol Xl Tab) 100 mg QAM PO 08/29/17 09:00 09/28/17 08:59 Future hold 09/01/17 07:49 100 MG Prednisone (PredniSONE TAB) 20 mg BID PO 08/30/17 09:00 09/29/17 08:59 09/01/17 07:49 20 MG Glipizide (GlipiZIDE EXTENDED REL TAB) 5 mg QDB PO 08/31/17 07:30 09/30/17 07:29 09/01/17 07:50 5 MG Amiodarone HCL/ Dextrose 200 ml @ 16.7 mls/hr [id number] IV 08/31/17 16:45 09/30/17 16:44 09/01/17 04:38 16.7 MLS/HR Furosemide (Lasix Tab) 80 mg QAM PO 09/01/17 09:00 10/01/17 08:59 UNV Impression (1) Acute renal insufficiency (2) Moderate to severe pulmonary hypertension (3) Atrial fibrillation with RVR (4) HTN (hypertension) (5) DM (diabetes mellitus) (6) Cor pulmonale Arlen Boswell is an 81-year-old female with acute kidney injury and atrial fibrillation with RVR. Medical history is notable for diabetes mellitus II, chronic diastolic CHF and right heart failure with severe pulmonary hypertension. PONCE is consistent with prerenal azotemia with possible ATN. Creatinine improved slightly in the past 24 hours. Urine output is appropriate. Renal US was normal. UA is bland. Metabolic profile is otherwise normal. Arlen is feeling slightly better with a slightly negative fluid balance yesterday. She remains on amiodarone gtt. She received a total of 120 mg furosemide in the past 24 hours. I provided an additional 80 mg PO this morning. Medications are appropriate for renal function. I reviewed with Arlen the concerns regarding glipizide and renal dysfunction. She was more agreeable to considering insulin last night and expressed significant concerns this morning. Overall, I stressed that control of her blood sugars is important to kidney health. I would strongly suggest she consider this and will continue to monitor hyperglycemia as prednisone is weaned. Recommendations -- Furosemide 80 mg PO QAM, continue as needed to encourage a net negative fluid balance -- Document I/O's -- Repeat metabolic profile tomorrow AM -- Continue to hold metformin. Consider switching glipizide to insulin -- Medications are otherwise appropriate for renal function -- Maintain 1.5 L daily fluid restriction for hyponatremia -- Renal diet
[2017-09-01] MEDS: TIOTROPIUM BROMIDE 5 PUFF/90 MCG INH INH SCH (09:10)
[2017-09-01] MEDS ORDERED: FUROSEMIDE 80 MG TAB PO SCH (10:15)
[2017-09-01] MEDS ORDERED: DILTIAZEM HCL 120 MG CAPCR PO ONE (10:45)
--- NOTE | 2017-09-01 11:17 | Cardiology Follow-Up ---
Subjective Date of Service: Sep 01, 2017. Pt evaluation today including: conversation w/ patient, physical exam, lab review, review of studies, review of inpatient medication list History of Present Illness This is an 81-year-old woman who has a history of diabetes mellitus, hypertension, coronary artery disease (identified at catheterization on June 25, 2014) as well as severe pulmonary hypertension. She has had stent placement at [facility] on two occasions by her recollection, not recently. She presents now with vomiting for 4 days, lower abdominal discomfort as well as diarrhea. She was not having chest symptoms, specifically not having palpitations, chest discomfort, etc. She is chronically on oxygen on arrival in the emergency room she was noted to be in atrial fibrillation with a rapid ventricular response. She was started on intravenous diltiazem and heparin. By morning she converted back to sinus rhythm with premature atrial beats. On further discussion with her she uses a pulse oximeter at home, she notices from time to time that her heart rate is elevated (in the 115 bpm range) whereas most the time it is in the 70 bpm range. She is unaware of palpitations but has not been in the hospital either when we have documented atrial fibrillation. I suspect she has this at home and that this is not a new finding. She converted back to atrial fibrillation and we have had a lot of difficulty controlling her atrial arrhythmia, ultimately we titrated her oral medications to diltiazem 360 mg daily and metoprolol succinate 100 mg daily. Her heart rate was well controlled yesterday in atrial fibrillation on this regimen. Currently she is feeling quite well, she is not short of breath this morning although is on supplemental oxygen. She has had no palpitations or chest discomfort. Social History Smoking Status: Former Smoker History of Alcohol Use: No Review of Systems Respiratory: + cough, + shortness of breath, + dyspnea at rest (Mild), No sputum, No wheezing, No dyspnea on exertion, No hemoptysis Cardiac: + edema (1-2+), No chest pain, No orthopnea, No PND, No claudication, No palpitations Medications Cardiovascular: Item Value Date Time Furosemide 80 mg 09/01/17 1015 (Lasix Tab) QAM/PO 09/01/17 1035 Amiodarone HCL/ 200 ml @ 16.7 mls/hr 08/31/17 1645 Dextrose .[id number] 09/01/17 0438 Metoprolol 100 mg 08/29/17 0900 Succinate QAM/PO 09/01/17 0749 (Toprol Xl Tab) Apixaban 2.5 mg 08/25/17 1930 (Eliquis Tab) BID/PO 09/01/17 0749 Atorvastatin 80 mg 08/25/17 0900 Calcium DAILY/PO 09/01/17 0749 (Lipitor Tab) Objective Vital Signs Past 12 Hours Date Time Temp Pulse Resp B/P (MAP) Pulse Ox O2 Delivery O2 Flow Rate FiO2 09/01/17 10:47 95/71 (79) 09/01/17 08:00 Nasal Cannula 2.0 09/01/17 07:28 36.6 111 16 122/62 (82) 100 Nasal Cannula 4.0 09/01/17 07:07 111 18 100 Nasal Cannula 5.0 09/01/17 05:56 36.4 104 25 96/69 (78) 99 Nasal Cannula 5.0 09/01/17 04:10 Nasal Cannula 5.0 09/01/17 03:20 112 20 94 Nasal Cannula 5.0 09/01/17 00:36 36.5 111 25 97/75 (82) 93 5.0 09/01/17 00:01 Nasal Cannula 5.0 08/31/17 23:17 102 22 93 Nasal Cannula 5.0 Last Recorded Weight-Kilograms: 86.900 Physical Exam Constitutional: General Apperance: heathly-appearing, overweight Level of Distress: NAD Ambulation: limited ambulation Lungs: Respiratory effort: no dyspnea Auscultation: no wheezing, decreased breath sounds Cardiovascular: Heart Auscultation: no murmurs, no rubs, no gallops, tachycardia, irregular rate rhythm Peripheral Pulses: Bruits: none appreciated Extremities: edema (+2 bilateral) Data Laboratory Results: Last 24 Hours Test 08/31/17 11:18 08/31/17 16:10 08/31/17 20:39 09/01/17 06:27 Bedside Glucose 398 mg/dl 353 mg/dl 351 mg/dl White Blood Count 10.10 K/uL Red Blood Count 4.51 M/uL Hemoglobin 14.0 g/dL Hematocrit 41.0 % Mean Corpuscular Volume 90.9 fL Mean Corpuscular Hemoglobin 31.0 pg Mean Corpuscular Hemoglobin Concent 34.1 g/dl RDW Standard Deviation 50.8 fL RDW Coefficient of Variation 15.1 % Platelet Count 135 K/uL Mean Platelet Volume 10.8 fL Sodium Level 127 mmol/L Potassium Level 4.1 mmol/L Chloride Level 88 mmol/L Carbon Dioxide Level 28 mmol/L Anion Gap 11.0 mmol/L Blood Urea Nitrogen 95 mg/dl Creatinine 1.83 mg/dl Est Creatinine Clear Calc Drug Dose 24.8 ml/min Estimated GFR () 29.3 Estimated GFR (Non- 25.2 BUN/Creatinine Ratio 52.0 Random Glucose 326 mg/dl Calcium Level 10.5 mg/dl Total Bilirubin 1.2 mg/dl Aspartate Amino Transf (AST/SGOT) 26 U/L Alanine Aminotransferase (ALT/SGPT) 38 U/L Alkaline Phosphatase 159 U/L Total Protein 7.0 gm/dl Albumin 3.2 gm/dl Globulin 3.8 gm/dl Albumin/Globulin Ratio 0.8 Beta-Hydroxybutyric Acid 1.54 mg/dL Test 09/01/17 06:35 Bedside Glucose 321 mg/dl Telemetry reviewed: Atrial fibrillation, heart rate remains in the 100s Assessment and Plan 1. Atrial flutter/fibrillation: Her presentation atrial flutter is a new diagnosis however I suspect she has had it before as noted in the HPI. Her heart rate was fairly well controlled on metoprolol succinate 100 mg daily and diltiazem CD 240 mg daily however these medications were held due to borderline low blood pressure. She arrived in atrial fibrillation and was placed on anticoagulation when she was admitted, she had converted to sinus rhythm but now is back in atrial fibrillation. The stroke risk should be low if we convert her back to normal rhythm and that may be the best option, I do not think it is good to have her at such a high heart rate and we are having difficulty with low blood pressure on the medications. I therefore started amiodarone in hopes of converting the rhythm, but she remains in atrial fibrillation. The heart rate remains somewhat fast and I am going to administer a lower dose of diltiazem along with her amiodarone and metoprolol. She should be on long-term anticoagulation, she is on the correct dose of Eliquis. 2. Abnormal cardiac enzymes: She had low-grade abnormal cardiac enzymes on admission but I think this is consistent with demand ischemia from her known coronary artery disease and her rapid heart rate. 3. Coronary disease: She does not have symptoms of myocardial ischemia, but she did not in the past either. She does not have much to suggest active ischemia on her electrocardiogram and her enzymes are more in keeping with demand ischemia. I would not pursue further evaluation at this time. I do think we should get her heart rate under better control however with her history of coronary disease. 4. Pulmonary hypertension: She has a history of pulmonary hypertension, she has severe pulmonary hypertension and tricuspid regurgitation on her current echo but this is similar to before. There is probably little that can be done with this but no doubt it contributes to her edema. 5. Edema: She still has peripheral edema, it may not be worse but her weight has been gradually increasing since admission. She does not seem to be in heart failure on exam however I think she is somewhat fluid overloaded. She is now on Lasix, hopefully that will help. Thank you for allowing me to participate in her care.
[2017-09-01] MEDS ORDERED: CONSULT PHARMACY STA (12:02)
--- NOTE | 2017-09-01 13:56 | Progress Note ---
Subjective Date of Service: Sep 01, 2017. Subjective Pt evaluation today including: conversation w/ patient, conversation w/ family , physical exam, chart review, lab review, review of studies, conversation w/ child development consultant, review of inpatient medication list Voiding: no voiding problems Doing the same as yesterday, oxygen level is okay, for now is 2-4 L/min, pulse ox around 92-94%, report has good urine output, eating fair, no other complaints Problem List Medical Problems: (1) Dehydration Status: Acute (2) Elevated troponin Status: Acute (3) Left sided abdominal pain Status: Acute Review of Systems Constitutional: + weakness, + fatigue, No fever, No chills, No sweats, No weight loss, No problem reported Eyes: No worsening of vision, No eye pain, No redness, No discharge, No diplopia ENT: No hearing loss, No unusual epistaxis, No nasal symptoms, No sore throat, No tinnitus, No dental problems, No trouble swallowing Respiratory: + cough, + shortness of breath, No sputum, No wheezing, No dyspnea on exertion, No dyspnea at rest, No hemoptysis Cardiac: + edema, No chest pain, No orthopnea, No PND, No claudication, No palpitations Abdomen: No pain, No nausea, No vomiting, No diarrhea, No constipation Musculoskeletal: No joint pain, No muscle pain, No swelling, No calf pain Female : No dysuria, No urinary frequency, No hematuria, No incontinence, No abnormal vaginal bleeding, No vaginal discharge Neurologic: No memory loss, No paralysis, No weakness, No numbness/tingling, No vertigo, No balance problems Psychiatric: No depression symptoms, No anhedonism, No anxiety, No insomnia, No substance abuse Heme: No abnormal bleeding/bruising, No clotting problems, No swollen lymph nodes, No night sweats Endo: No fatigue, No excessive thirst, No excessive urination Skin: No rash, No itch, No new/changing skin lesions, No color change, No bleeding Objective Vital Signs Date Time Temp Pulse Resp B/P (MAP) Pulse Ox O2 Delivery O2 Flow Rate FiO2 09/01/17 12:06 36.9 123 28 91/66 (74) 100 Nasal Cannula 4.0 09/01/17 12:00 Nasal Cannula 2.0 09/01/17 11:15 114 18 98 Nasal Cannula 3.0 09/01/17 10:47 95/71 (79) 09/01/17 08:00 Nasal Cannula 2.0 09/01/17 07:28 36.6 111 16 122/62 (82) 100 Nasal Cannula 4.0 09/01/17 07:07 111 18 100 Nasal Cannula 5.0 09/01/17 05:56 36.4 104 25 96/69 (78) 99 Nasal Cannula 5.0 09/01/17 04:10 Nasal Cannula 5.0 09/01/17 03:20 112 20 94 Nasal Cannula 5.0 09/01/17 00:36 36.5 111 25 97/75 (82) 93 5.0 09/01/17 00:01 Nasal Cannula 5.0 08/31/17 23:17 102 22 93 Nasal Cannula 5.0 08/31/17 20:00 Nasal Cannula 5.0 08/31/17 19:38 100 22 93 Nasal Cannula 5.0 08/31/17 19:05 36.5 114 28 99/73 (82) 92 Nasal Cannula 8.0 08/31/17 16:00 CPAP 5.0 08/31/17 15:34 109 18 91 Nasal Cannula 5.0 08/31/17 15:22 36.7 122 27 103/68 (80) 92 6.0 Physical Exam General Appearance: WD/WN, no apparent distress, + obese Eyes: normal inspection, PERRL, EOMI, sclerae normal ENT: normal ENT inspection, hearing grossly normal, pharynx normal Neck: supple, no adenopathy, thyroid normal, no JVD, no carotid bruits, trachea midline Respiratory/Chest: chest non-tender, normal breath sounds, no respiratory distress, no accessory muscle use, + decreased breath sounds, + wheezing Cardiovascular: regular rate, rhythm, no gallop, no JVD, no murmur, + pertinent finding (1-2+ edema,) Abdomen: normal bowel sounds, non tender, soft, no organomegaly, no pulsatile mass Extremities: normal range of motion, non-tender, normal inspection, no pedal edema, no calf tenderness, normal capillary refill, pelvis stable 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, no motor/sensory deficits, alert, normal mood/affect, oriented x 3 Skin: normal color, warm/dry, no rash Lymphatic: no adenopathy Laboratory Results Last 24 Hours Test 08/31/17 16:10 08/31/17 20:39 09/01/17 06:27 09/01/17 06:35 Bedside Glucose 353 mg/dl 351 mg/dl 321 mg/dl White Blood Count 10.10 K/uL Red Blood Count 4.51 M/uL Hemoglobin 14.0 g/dL Hematocrit 41.0 % Mean Corpuscular Volume 90.9 fL Mean Corpuscular Hemoglobin 31.0 pg Mean Corpuscular Hemoglobin Concent 34.1 g/dl RDW Standard Deviation 50.8 fL RDW Coefficient of Variation 15.1 % Platelet Count 135 K/uL Mean Platelet Volume 10.8 fL Sodium Level 127 mmol/L Potassium Level 4.1 mmol/L Chloride Level 88 mmol/L Carbon Dioxide Level 28 mmol/L Anion Gap 11.0 mmol/L Blood Urea Nitrogen 95 mg/dl Creatinine 1.83 mg/dl Est Creatinine Clear Calc Drug Dose 24.8 ml/min Estimated GFR () 29.3 Estimated GFR (Non- 25.2 BUN/Creatinine Ratio 52.0 Random Glucose 326 mg/dl Calcium Level 10.5 mg/dl Total Bilirubin 1.2 mg/dl Aspartate Amino Transf (AST/SGOT) 26 U/L Alanine Aminotransferase (ALT/SGPT) 38 U/L Alkaline Phosphatase 159 U/L Total Protein 7.0 gm/dl Albumin 3.2 gm/dl Globulin 3.8 gm/dl Albumin/Globulin Ratio 0.8 Beta-Hydroxybutyric Acid 1.54 mg/dL Test 09/01/17 11:32 Bedside Glucose 352 mg/dl Assessment and Plan 81 y/o F admitted on August 24, 2017, associated with nausea, vomiting and diarrhea x 4 days, and A. fib with rapid ventricular response, she developed acute on chronic respiratory failure required BiPAP, A. fib with rapid ventricular response, rate not well controlled, is on amiodarone drip will continue is new identified, no history of A. fib, has been on Cardizem drip, which was switch over to oral Cardizem, Cardizem dose is 360 mg p.o. daily, and continue with metoprolol at 100 mg p.o. twice daily Later amiodarone drip was started, continue with Eliquis for stroke prevention PONCE upon admission likely this due to dehydration , creatinine has been declining 2.20, has requested nephrology consult, possible cardiorenal syndrome , gave Lasix, has good urine output/ renal function improves, continue same dose of Lasix today Patient has significant history of CHF and fluid retention history, it is difficult to make judgment is fluid retention or fluid depletion, patient on mild edema, patient is lung has no crackles, and BUN/creatinine ratio is more than 20, Chronic respiratory failure, 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 , pulmonary hypertension, mucous plugging is reported on CT and there is some concern for aspiration, liquid sugar fortifier input appreciated, possible poor prognosis, continue tapering steroid, nebulizer treatment, and supportive care Uncontrolled with A1c 7.2 of diabetic, patient continue declined using insulin because he is on allergy, continue glipizide to 5 mg, blood glucose a little bit better, but without insulin would never be able to be optimized, DVT prophylaxis, Updated and talked to patient's updated patient's conditions and care plan, answered all questions, Possible very poor prognosis Continued [facility] [place] stay due to: multiple IV medications needed Discharge planning: uncertain
[2017-09-01] MEDS ORDERED: FUROSEMIDE 40 MG TAB PO ONE (18:40)
[2017-09-02] VITALS (15 sets, daily range): BP systolic 88–135; BP diastolic 58–81; PULSE 94–123; TEMP 36.4–36.8; O2SAT 90–99
[2017-09-02] MEDS: ALBUT/IPRATROP 3MG/0.5MG NEB 3 ML VIAL INH SCH ×6 (03:52→23:04)
[2017-09-02] MEDS: AMIODARONE / D5W 200 ML IV SCH ×2 (04:37→16:25)
[2017-09-02] MEDS: ACETYLCYSTEINE 20% INHAL SOLN ***DISPENSED BY RESP. INH SCH ×2 (07:03→19:02)
[2017-09-02 07:41] LABS: CALCIUM 9.9 mg/dl (8.5-10.1); CREATININE 1.8 mg/dl (0.60-1.20); PHOSPHORUS 3.1 mg/dl (2.5-4.9); POTASSIUM 3.4 mmol/L (3.5-5.1)
--- NOTE | 2017-09-02 08:02 | Nephrology Progress Note ---
Nephrology Progress Note Date of Service Sep 02, 2017. Chief Complaint PONCE Subjective No acute events overnight. Arlen feels better this morning. Heart rate remains fast but she continues to deny chest pain, palpitations. Dyspnea has markedly improved. No lightheadedness, dizziness. She continues to struggle with the idea of using insulin. No fevers or chills. Review of Systems A complete review of systems was performed. Pertinent positives are noted above. All other systems are negative. Vital Signs Last 8 Hrs Date Time Temp Pulse Resp B/P (MAP) Pulse Ox O2 Delivery O2 Flow Rate FiO2 09/02/17 04:33 36.5 120 16 104/69 (81) 98 Nasal Cannula 3.0 Humidified Oxygen 09/02/17 04:00 Nasal Cannula 3.0 09/02/17 00:06 36.7 115 21 105/69 (81) 96 Nasal Cannula 3.0 Humidified Oxygen 09/02/17 00:01 Nasal Cannula 3.0 09/01/17 23:54 107 18 96 Nasal Cannula 3.0 Last Recorded Weight Weight (Kilograms): 86.300 Physical Exam General Appearance: no apparent distress Head: normocephalic, atraumatic Eyes: normal inspection, sclerae normal ENT: normal ENT inspection, pharynx normal Neck: supple, no JVD Respiratory/Chest: no respiratory distress, no accessory muscle use, + rales Cardiovascular: + tachycardia, + irregularly irregular Abdomen/GI: non tender, soft Extremities/Musculoskelatal: normal inspection, + pedal edema Neurologic/Psych: alert, normal mood/affect Family History No pertinent family history Social History Smokeless Tobacco Use: No Drug Use: none Marital Status: Occupation: unemployed Laboratory Results Past 24 Hours 09/02/17 06:40 Test 09/01/17 11:32 09/01/17 16:39 09/01/17 21:04 09/02/17 06:25 Bedside Glucose 352 mg/dl (70-90) 356 mg/dl (70-90) 366 mg/dl (70-90) 372 mg/dl (70-90) Test 09/02/17 06:40 Anion Gap 11.0 mmol/L (3-11) Est Creatinine Clear Calc Drug Dose 25.1 ml/min Estimated GFR () 29.9 Estimated GFR (Non- 25.8 BUN/Creatinine Ratio 51.1 (10-20) Calcium Level 9.9 mg/dl (8.5-10.1) Phosphorus Level 3.1 mg/dl (2.5-4.9) Magnesium Level 2.0 mg/dl (1.8-2.4) Allergies Coded Allergies: Insulin (Verified Adverse Reaction, Unknown, other, 08/31/17) Patient states that she has an insulin allergy that caused cardiac arrest, however she admitted to nursing that she is not allergic to insulin, she just does not want to take it. Medications Current Inpatient Medications Medications (Trade) Dose Ordered Sig/Mayito Route Start Time Stop Time Status Last Admin Dose Admin Atorvastatin Calcium (Lipitor Tab) 80 mg DAILY PO 08/25/17 09:00 09/24/17 08:59 09/01/17 07:49 80 MG Acetaminophen (Tylenol Tab) 650 mg Q4H PRN PO 08/24/17 17:30 09/23/17 17:29 Al Hydrox/Mg Hydrox/Simethicone (Maalox Max Susp) 15 ml Q4H PRN PO 08/24/17 17:30 09/23/17 17:29 Magnesium Hydroxide (Milk Of Magnesia Susp) 30 ml Q12H PRN PO 08/24/17 17:30 09/23/17 17:29 Ondansetron HCl (Zofran Inj) 4 mg Q6H PRN IV 08/24/17 17:30 09/23/17 17:29 08/27/17 14:33 4 MG Morphine Sulfate (MoRPHine SULFATE INJ) 2 mg Q30M PRN IV 08/24/17 17:30 09/07/17 17:29 Polyethylene (Miralax Powder Packet) 17 gm DAILY PRN PO 08/24/17 17:30 09/23/17 17:29 Glucose (Glucose 40% Gel) 15-30 GRAMS 15 GRAMS... UD PRN PO 08/24/17 18:45 09/23/17 18:44 Glucose (Glucose Chew Tab) 4-8 Tablets 4 Tabl... UD PRN PO 08/24/17 18:45 09/23/17 18:44 Dextrose (Dextrose 50% 50ML Syringe) 25-50ML OF 50% DW IV FOR... UD PRN IV 08/24/17 18:45 09/23/17 18:44 Glucagon (Glucagon Inj) 1 mg UD PRN SQ 08/24/17 18:45 09/23/17 18:44 Apixaban (Eliquis Tab) 2.5 mg BID PO 08/25/17 19:30 09/24/17 19:29 09/01/17 20:31 2.5 MG Sodium Chloride ([place] Nasal [place]) 1 sprays PRN PRN NA 08/25/17 20:45 09/24/17 20:44 Calcium/Vitamin D (Caltrate Plus Tab) 1 tab BID PO 08/26/17 09:00 09/25/17 08:59 09/01/17 20:31 1 TAB Diltiazem HCl (Cardizem Cd Cap) 360 mg QAM PO 08/28/17 09:00 09/27/17 08:59 Future Hold 08/30/17 08:53 360 MG Acetylcysteine (Mucomyst 20% Inh Soln) 5 ml BIDR INH 08/27/17 20:00 09/26/17 19:59 09/02/17 07:03 5 ML Albuterol/ Ipratropium (Duoneb) 3 ml Q4R INH 08/27/17 20:00 09/26/17 19:59 09/02/17 07:03 3 ML Salmeterol Xinafoate/ Fluticasone (Advair Diskus 250/50 Inh) 1 puff BID INH 08/27/17 21:00 09/26/17 20:59 09/01/17 20:30 1 PUFF Tiotropium [place] (Spiriva Handihaler Inhaler) 1 puff QAM INH 08/28/17 09:00 09/27/17 08:59 09/01/17 09:10 1 PUFF Albuterol/ Ipratropium (Duoneb) 3 ml Q2H PRN INH 08/27/17 19:30 09/26/17 19:29 Guaifenesin (Mucinex Contr Rel Tab) 600 mg Q12 PO 08/27/17 21:00 09/26/17 20:59 09/01/17 20:32 600 MG Metoprolol Succinate (Toprol Xl Tab) 100 mg QAM PO 08/29/17 09:00 09/28/17 08:59 Future hold 09/01/17 07:49 100 MG Amiodarone HCL/ Dextrose 200 ml @ 16.7 mls/hr [id number] IV 08/31/17 16:45 09/30/17 16:44 09/02/17 04:37 16.7 MLS/HR Furosemide (Lasix Tab) 80 mg QAM PO 09/01/17 10:15 10/01/17 10:14 09/01/17 10:35 80 MG Prednisone (PredniSONE TAB) 15 mg BID PO 09/01/17 21:00 09/29/17 08:59 09/01/17 20:32 15 MG Glipizide (Glucotrol Tab) 5 mg QDB PO 09/02/17 07:30 10/02/17 07:29 Impression (1) Acute renal insufficiency (2) Moderate to severe pulmonary hypertension (3) Atrial fibrillation with RVR (4) HTN (hypertension) (5) DM (diabetes mellitus) (6) Cor pulmonale Arlen Boswell is an 81-year-old female with acute kidney injury and atrial fibrillation with RVR. Medical history is notable for diabetes mellitus II, chronic diastolic CHF and right heart failure with severe pulmonary hypertension. PONCE is consistent with prerenal azotemia with possible ATN. Creatinine improved slightly in the past 24 hours. Urine output is appropriate. Renal US was normal. UA is bland. Metabolic profile is otherwise normal. Arlen is feeling slightly better with a slightly negative fluid balance yesterday. She remains on amiodarone gtt. Arlen received a total of 120 mg furosemide in the past 24 hours. I plan to continue 80 mg twice daily today. Medications are appropriate for renal function. I again encouraged Arlen to consider insulin again this morning. She stated that she will think about it. Recommendations -- Furosemide 80 mg PO QAM and 40 mg QPM -- Document I/O's -- Repeat metabolic profile tomorrow AM -- Continue to hold metformin. Consider switching glipizide to insulin -- Medications are otherwise appropriate for renal function -- Maintain 1.5 L daily fluid restriction for hyponatremia -- Renal diet -- Given the patient's advanced underlying pulmonary hypertension, her decision to focus less on treating numbers and desire to primarily treat symptoms, I would suggest a palliative care consult to review overall goals of care -- I informed Arlen this morning that her CRS is complicated may would be expected to be an ongoing complication for management of her ongoing condition, at this time primary focus remains management of volume status and improving dyspnea
[2017-09-02] MEDS: FLUTICASONE/SALMETEROL 250/50 (ADVAIR) 14 PUFF/1 INHALER INH SCH ×2 (08:29→21:52)
[2017-09-02] MEDS: APIXABAN 2.5 MG TAB PO SCH ×2 (08:30→21:53)
[2017-09-02] MEDS ORDERED: POTASSIUM CHLORIDE 20 MEQ TABCR PO ONE (08:30)
[2017-09-02] MEDS: CALCIUM 600MG + VIT D 400 IU TAB PO SCH ×2 (08:30→21:52)
[2017-09-02] MEDS: TIOTROPIUM BROMIDE 5 PUFF/90 MCG INH INH SCH (08:30)
[2017-09-02] MEDS: GUAIFENESIN 600 MG TABCR PO SCH ×2 (08:30→21:54)
[2017-09-02] MEDS: ATORVASTATIN 40 MG TAB PO SCH (08:32)
[2017-09-02] MEDS: FUROSEMIDE 80 MG TAB PO SCH ×2 (08:33→16:26)
[2017-09-02] MEDS ORDERED: POTASSIUM CHLORIDE 10 MEQ TABCR PO ONE (08:45)
[2017-09-02] MEDS ORDERED: FUROSEMIDE 40 MG TAB PO SCH (09:00)
[2017-09-02] MEDS: POTASSIUM CHLORIDE 10 MEQ TABCR PO SCH ×2 (09:03→21:53)
[2017-09-02] MEDS: METOPROLOL SUCC 50MG EXT REL TAB PO SCH (09:03)
[2017-09-02] MEDS ORDERED: DILTIAZEM HCL 240 MG CAPCR PO SCH (13:00)
--- NOTE | 2017-09-02 14:07 | Progress Note ---
Subjective Date of Service: Sep 02, 2017. Subjective Pt evaluation today including: conversation w/ patient, conversation w/ family , physical exam, chart review, lab review, review of studies, conversation w/ cosmetic consultant, review of inpatient medication list Generally feeling better than yesterday, frequent urination, eating voiding okay , edema is better, mild cough, Problem List Medical Problems: (1) Dehydration Status: Acute (2) Elevated troponin Status: Acute (3) Left sided abdominal pain Status: Acute Review of Systems Constitutional: + weakness, + fatigue, No fever, No chills, No sweats, No weight loss, No problem reported Eyes: No worsening of vision, No eye pain, No redness, No discharge, No diplopia ENT: No hearing loss, No unusual epistaxis, No nasal symptoms, No sore throat, No tinnitus, No dental problems, No trouble swallowing Respiratory: + cough, + shortness of breath, No sputum, No wheezing, No dyspnea on exertion, No dyspnea at rest, No hemoptysis Cardiac: + edema, No chest pain, No orthopnea, No PND, No claudication, No palpitations Abdomen: No pain, No nausea, No vomiting, No diarrhea, No constipation Musculoskeletal: No joint pain, No muscle pain, No swelling, No calf pain Female : No dysuria, No urinary frequency, No hematuria, No incontinence, No abnormal vaginal bleeding, No vaginal discharge Neurologic: No memory loss, No paralysis, No weakness, No numbness/tingling, No vertigo, No balance problems Psychiatric: No depression symptoms, No anhedonism, No anxiety, No insomnia, No substance abuse Heme: No abnormal bleeding/bruising, No clotting problems, No swollen lymph nodes, No night sweats Endo: No fatigue, No excessive thirst, No excessive urination Skin: No rash, No itch, No new/changing skin lesions, No color change, No bleeding Objective Vital Signs Date Time Temp Pulse Resp B/P (MAP) Pulse Ox O2 Delivery O2 Flow Rate FiO2 09/02/17 12:00 Nasal Cannula 3.0 09/02/17 11:10 110 18 93 Nasal Cannula 3.0 09/02/17 10:49 36.4 108 20 135/81 (99) 92 Nasal Cannula 3.0 09/02/17 08:35 97/65 (76) 09/02/17 08:00 Nasal Cannula 3.0 09/02/17 07:52 36.6 110 26 88/58 (68) 90 Nasal Cannula 90.0 09/02/17 07:03 105 18 98 Nasal Cannula 3.0 09/02/17 04:33 36.5 120 16 104/69 (81) 98 Nasal Cannula 3.0 Humidified Oxygen 09/02/17 04:00 Nasal Cannula 3.0 09/02/17 00:06 36.7 115 21 105/69 (81) 96 Nasal Cannula 3.0 Humidified Oxygen 09/02/17 00:01 Nasal Cannula 3.0 09/01/17 23:54 107 18 96 Nasal Cannula 3.0 09/01/17 20:00 100 Nasal Cannula 3.0 09/01/17 19:42 36.4 104 24 99/64 (76) 100 Nasal Cannula 3.0 Humidified Air 09/01/17 19:15 109 18 97 Nasal Cannula 3.0 09/01/17 16:00 100 Nasal Cannula 3.0 09/01/17 15:46 37.7 114 18 107/65 (79) 100 Nasal Cannula 3.0 Humidified Air 09/01/17 15:23 109 18 100 Nasal Cannula 3.0 Physical Exam General Appearance: WD/WN, no apparent distress, + obese Eyes: normal inspection, PERRL, EOMI, sclerae normal ENT: normal ENT inspection, hearing grossly normal, pharynx normal Neck: supple, no adenopathy, thyroid normal, no JVD, no carotid bruits, trachea midline Respiratory/Chest: chest non-tender, no respiratory distress, no accessory muscle use, + decreased breath sounds Cardiovascular: regular rate, rhythm, no gallop, no JVD, no murmur, + irregularly irregular Abdomen: normal bowel sounds, non tender, soft, no organomegaly, no pulsatile mass Extremities: normal range of motion, non-tender, normal inspection, no pedal edema, no calf tenderness, normal capillary refill, pelvis stable, + swelling (1 -2+ edema, is better) 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, no motor/sensory deficits, alert, normal mood/affect, oriented x 3 Skin: normal color, warm/dry, no rash Lymphatic: no adenopathy Laboratory Results Last 24 Hours Test 09/01/17 16:39 09/01/17 21:04 09/02/17 06:25 09/02/17 06:40 Bedside Glucose 356 mg/dl 366 mg/dl 372 mg/dl Sodium Level 127 mmol/L Potassium Level 3.4 mmol/L Chloride Level 86 mmol/L Carbon Dioxide Level 31 mmol/L Anion Gap 11.0 mmol/L Blood Urea Nitrogen 92 mg/dl Creatinine 1.80 mg/dl Est Creatinine Clear Calc Drug Dose 25.1 ml/min Estimated GFR () 29.9 Estimated GFR (Non- 25.8 BUN/Creatinine Ratio 51.1 Random Glucose 354 mg/dl Calcium Level 9.9 mg/dl Phosphorus Level 3.1 mg/dl Magnesium Level 2.0 mg/dl Beta-Hydroxybutyric Acid 0.99 mg/dL Test 09/02/17 11:12 Bedside Glucose 288 mg/dl Assessment and Plan 81 y/o F admitted on August 24, 2017, associated with nausea, vomiting and diarrhea x 4 days, and A. fib with rapid ventricular response, she developed acute on chronic respiratory failure required BiPAP, A. fib with rapid ventricular response, rate not well controlled, is on amiodarone drip , will continue, cardiology follow-up is new identified, no history of A. fib, had been on Cardizem drip, which was switch over to oral Cardizem, Cardizem dose is 360 mg p.o. daily which is on hold, and continue with metoprolol at 100 mg p.o. twice daily Later amiodarone drip was started, continue with Eliquis for stroke prevention PONCE upon admission , possible cardiorenal syndrome, Business Practices Supervisor input appreciated, renal function improving on Lasix, has good urination, has been on fluid restriction, will continue per recommendation of chain machine operator, 80 mg a.m. and 40 mg p.o. q. p.m. 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 , pulmonary hypertension, mucous plugging is reported on CT and there is some concern for aspiration, data officer input appreciated, Seems slightly improved after using Lasix for 2 days, continue tapering steroid , nebulizer treatment, and supportive care Uncontrolled with A1c 7.2 of diabetic, patient continue declined using insulin because he is on allergy, continue glipizide to 5 mg, blood glucose a little bit better, Will taper prednisone hopefully blood glucose getting better DVT prophylaxis, Eliquis Possible very poor prognosis Continued [facility] stay due to: multiple IV medications needed Discharge planning: uncertain
--- NOTE | 2017-09-02 16:07 | Palliative Care Progress Note ---
Palliative Care Progress Note Date of Service Sep 02, 2017. Subjective Recieved consult Reviewed medical record. Wnt to see pt, had just left - will plan to meet with pt andh on tuesday to discuss goals of care. Objective Laboratory Results Last 24 Hours Assessment and Plan Continued [facility] stay due to: multiple IV medications needed Discharge planning: uncertain
--- NOTE | 2017-09-02 16:48 | Cardiology Follow-Up ---
Subjective Date of Service: Sep 02, 2017. Pt evaluation today including: conversation w/ patient, physical exam, lab review, review of studies, review of inpatient medication list History of Present Illness This is an 81-year-old woman who has a history of diabetes mellitus, hypertension, coronary artery disease (identified at catheterization on June 25, 2014) as well as severe pulmonary hypertension. She has had stent placement at [facility] on two occasions by her recollection, not recently. She presents now with vomiting for 4 days, lower abdominal discomfort as well as diarrhea. She was not having chest symptoms, specifically not having palpitations, chest discomfort, etc. She is chronically on oxygen on arrival in the emergency room she was noted to be in atrial fibrillation with a rapid ventricular response. She was started on intravenous diltiazem and heparin. By morning she converted back to sinus rhythm with premature atrial beats. On further discussion with her she uses a pulse oximeter at home, she notices from time to time that her heart rate is elevated (in the 115 bpm range) whereas most the time it is in the 70 bpm range. She is unaware of palpitations but has not been in the hospital either when we have documented atrial fibrillation. I suspect she has this at home and that this is not a new finding. She converted back to atrial fibrillation and we have had a lot of difficulty controlling her atrial arrhythmia, ultimately we titrated her oral medications to diltiazem 360 mg daily and metoprolol succinate 100 mg daily. Her heart rate has remained elevated on this regimen, I therefore added amiodarone intravenously several days ago in hopes of converting her rhythm. She has remained in atrial fibrillation however. Currently she is feeling better, she remains unaware of her rhythm and is less short of breath. Social History Smoking Status: Former Smoker History of Alcohol Use: No Review of Systems Respiratory: + cough, + shortness of breath, No sputum, No wheezing, No dyspnea on exertion, No dyspnea at rest, No hemoptysis Cardiac: + edema, No chest pain, No orthopnea, No PND, No claudication, No palpitations Medications Cardiovascular: Item Value Date Time Furosemide 80 mg 09/02/17 0900 (Lasix Tab) BID17/PO 09/02/17 1626 Potassium Chloride 10 meq 09/02/17 0900 (Klor-Con M10) BID/PO 09/02/17 0903 Amiodarone HCL/ 200 ml @ 16.7 mls/hr 08/31/17 1645 Dextrose .[id number]/IV 09/02/17 1625 Metoprolol 100 mg 08/29/17 0900 Succinate QAM/PO 09/02/17 0903 (Toprol Xl Tab) Apixaban 2.5 mg 08/25/17 1930 (Eliquis Tab) BID/PO 09/02/17 0830 Atorvastatin 80 mg 08/25/17 0900 Calcium DAILY/PO 09/02/17 0832 (Lipitor Tab) Objective Vital Signs Past 12 Hours Date Time Temp Pulse Resp B/P (MAP) Pulse Ox O2 Delivery O2 Flow Rate FiO2 09/02/17 16:00 99 Nasal Cannula 3.0 Humidified Oxygen 09/02/17 15:48 36.5 113 20 95/67 (76) 99 Nasal Cannula 3.0 Humidified Oxygen 09/02/17 15:33 112 18 95 Nasal Cannula 3.0 09/02/17 12:00 Nasal Cannula 3.0 09/02/17 11:10 110 18 93 Nasal Cannula 3.0 09/02/17 10:49 36.4 108 20 135/81 (99) 92 Nasal Cannula 3.0 09/02/17 08:35 97/65 (76) 09/02/17 08:00 Nasal Cannula 3.0 09/02/17 07:52 36.6 110 26 88/58 (68) 90 Nasal Cannula 90.0 09/02/17 07:03 105 18 98 Nasal Cannula 3.0 Last Recorded Weight-Kilograms: 86.300 Intake & Output 8-Hour Column 09/02/17 09/02/17 09/03/17 15:59 23:59 07:59 Intake Total 625 ml Output Total 700 ml Balance -75 ml 24-Hour Column 09/03/17 07:59 Intake Total 625 ml Output Total 700 ml Balance -75 ml Physical Exam Constitutional: General Apperance: heathly-appearing, overweight Level of Distress: NAD Ambulation: limited ambulation Lungs: Respiratory effort: no dyspnea Auscultation: no wheezing, decreased breath sounds Cardiovascular: Heart Auscultation: no murmurs, no rubs, no gallops, tachycardia, irregular rate rhythm Peripheral Pulses: Bruits: none appreciated Extremities: edema (+2 bilateral) Data Laboratory Results: Last 24 Hours Test 09/01/17 16:39 09/01/17 21:04 09/02/17 06:25 09/02/17 06:40 Bedside Glucose 356 mg/dl 366 mg/dl 372 mg/dl Sodium Level 127 mmol/L Potassium Level 3.4 mmol/L Chloride Level 86 mmol/L Carbon Dioxide Level 31 mmol/L Anion Gap 11.0 mmol/L Blood Urea Nitrogen 92 mg/dl Creatinine 1.80 mg/dl Est Creatinine Clear Calc Drug Dose 25.1 ml/min Estimated GFR () 29.9 Estimated GFR (Non- 25.8 BUN/Creatinine Ratio 51.1 Random Glucose 354 mg/dl Calcium Level 9.9 mg/dl Phosphorus Level 3.1 mg/dl Magnesium Level 2.0 mg/dl Beta-Hydroxybutyric Acid 0.99 mg/dL Test 09/02/17 11:12 Bedside Glucose 288 mg/dl Telemetry reviewed: She remains in atrial fibrillation with a heart rate which is averaging between 101 120 depending on activity. Assessment and Plan 1. Atrial flutter/fibrillation: Her presentation atrial flutter is a new diagnosis however I suspect she has had it before as noted in the HPI. She arrived in atrial fibrillation and was placed on anticoagulation when she was admitted, she had converted to sinus rhythm but now is back in atrial fibrillation for a number of days. The stroke risk should be low if we convert her back to normal rhythm and that may be the best option, I had hoped that amiodarone would do it, but that has not after several days of intravenous amiodarone. Her heart rate also remains fast and her blood pressure remains borderline. I am little worried about her converting to a very slow rhythm if she does convert and is on high doses of these medications. I am therefore going to switch her to short acting metoprolol and short acting diltiazem starting tomorrow morning (short he got long-acting today), continue the IV amiodarone and add low-dose digoxin. If she converts at least the medications will wear off sooner if she is on short acting medications. I am going to schedule her for cardioversion Tuesday if she remains in atrial fibrillation over the weekend. 2. Abnormal cardiac enzymes: She had low-grade abnormal cardiac enzymes on admission but I think this is consistent with demand ischemia from her known coronary artery disease and her rapid heart rate. 3. Coronary disease: She does not have symptoms of myocardial ischemia, but she did not in the past either. She does not have much to suggest active ischemia on her electrocardiogram and her enzymes are more in keeping with demand ischemia. I would not pursue further evaluation at this time. I do think we should get her heart rate under better control however with her history of coronary disease. 4. Pulmonary hypertension: She has a history of pulmonary hypertension, she has severe pulmonary hypertension and tricuspid regurgitation on her current echo but this is similar to before. There is probably little that can be done with this but no doubt it contributes to her edema. 5. Edema: She still has peripheral edema, her weight had been increasing for several days but is now decreasing again and hopefully this will help with her edema. Thank you for allowing me to participate in her care.
[2017-09-02] MEDS ORDERED: DIGOXIN 0.25 MG TAB PO ONE (17:00)
[2017-09-03] VITALS (16 sets, daily range): BP systolic 101–132; BP diastolic 61–75; PULSE 80–108; TEMP 36.4–36.8; O2SAT 90–97
[2017-09-03] MEDS: ALBUT/IPRATROP 3MG/0.5MG NEB 3 ML VIAL INH SCH ×6 (03:09→23:23)
[2017-09-03] MEDS: AMIODARONE / D5W 200 ML IV SCH ×2 (04:36→16:29)
[2017-09-03] MEDS: ACETYLCYSTEINE 20% INHAL SOLN ***DISPENSED BY RESP. INH SCH ×2 (06:59→19:26)
[2017-09-03] MEDS: DILTIAZEM HCL 60 MG TAB PO SCH ×3 (07:23→20:11)
[2017-09-03 07:42] LABS: CALCIUM 9.6 mg/dl (8.5-10.1); CREATININE 1.72 mg/dl (0.60-1.20); POTASSIUM 3.7 mmol/L (3.5-5.1)
[2017-09-03 07:43] LABS: PHOSPHORUS 2.6 mg/dl (2.5-4.9)
[2017-09-03] MEDS: ATORVASTATIN 40 MG TAB PO SCH (08:23)
[2017-09-03] MEDS: TIOTROPIUM BROMIDE 5 PUFF/90 MCG INH INH SCH (08:23)
[2017-09-03] MEDS: CALCIUM 600MG + VIT D 400 IU TAB PO SCH ×2 (08:24→20:10)
[2017-09-03] MEDS: METOPROLOL TARTRATE 50 MG TAB PO SCH ×2 (08:24→20:12)
[2017-09-03] MEDS: FUROSEMIDE 80 MG TAB PO SCH ×2 (08:25→16:32)
[2017-09-03] MEDS: POTASSIUM CHLORIDE 10 MEQ TABCR PO SCH ×2 (08:25→20:12)
[2017-09-03] MEDS: FLUTICASONE/SALMETEROL 250/50 (ADVAIR) 14 PUFF/1 INHALER INH SCH ×2 (08:26→20:10)
[2017-09-03] MEDS: APIXABAN 2.5 MG TAB PO SCH ×2 (08:26→20:11)
[2017-09-03] MEDS: GUAIFENESIN 600 MG TABCR PO SCH ×2 (08:26→20:12)
--- NOTE | 2017-09-03 11:07 | Pulmonology Progress Note ---
Pulmonary Progress Note Date of Service Sep 03, 2017. Attending Dr. Davila Subjective Patient notes CHRISTIANSON but over all has improved Objective Patient able to sit up in and easily able to have a conversation on 4L nasal cannula General: Awake alert oriented 3 Respiratory: Decreased breath sounds bilaterally Cardiac: S1-S2 distant heart sounds irregular rhythm Abdomen: Distended but soft nontender no rebound Extremities: 2+ pitting edema in the dependent regions CERAMIC ARTIST: Grossly intact cranial nerves II through XII as well as muscle strength and reflexes Assessment & Plan 81-year-old female admitted with acute on chronic respiratory insufficiency: 1. Respiratory Insufficiency: Patient does have a diagnosis based off previous right heart catheterization of severe pulmonary hypertension which might be secondary to cor pulmonale and exacerbated by atrial fibrillation/flutter at times. Currently being monitored by cardiology but I did speak to the at length yesterday about her previous right heart catheterization and her severe pulmonary hypertension. We have set up a time to meet with the family on 09/03/2017 at 10 AM for full discussion of her severe pulmonary hypertension. 2. Pulmonary hypertension: Patient's previous right heart and left heart catheterization have a pulmonary wedge pressure of 10 and a mean pulmonary arterial pressure of 53 creating a trans-pulmonary diastolic gradient of 30 and a transpulmonary gradient of 43. He is a highly significant numbers suggesting very severe pulmonary hypertension. This is most likely secondary to the patient's underlying cor pulmonale and I agree there is no truly helpful treatment other than oxygen supplementation at this time. I am worried as the patient is unable to come off high oxygen support so I have asked for a family meeting after speaking with the patient's primary care physician who agrees. 3. Family Discussion: I had a long conversation with the patient's family about her PH and the high mortality associated with this. Sign-Off: At this time the pulmonary service will sign-off and please contact us if needed. Data Medications: Current Inpatient Medications Medications (Trade) Dose Ordered Sig/Mayito Route Start Time Stop Time Status Last Admin Dose Admin Atorvastatin Calcium (Lipitor Tab) 80 mg DAILY PO 08/25/17 09:00 09/24/17 08:59 09/03/17 08:23 80 MG Acetaminophen (Tylenol Tab) 650 mg Q4H PRN PO 08/24/17 17:30 09/23/17 17:29 Al Hydrox/Mg Hydrox/Simethicone (Maalox Max Susp) 15 ml Q4H PRN PO 08/24/17 17:30 09/23/17 17:29 Magnesium Hydroxide (Milk Of Magnesia Susp) 30 ml Q12H PRN PO 08/24/17 17:30 09/23/17 17:29 Ondansetron HCl (Zofran Inj) 4 mg Q6H PRN IV 08/24/17 17:30 09/23/17 17:29 08/27/17 14:33 4 MG Morphine Sulfate (MoRPHine SULFATE INJ) 2 mg Q30M PRN IV 08/24/17 17:30 09/07/17 17:29 Polyethylene (Miralax Powder Packet) 17 gm DAILY PRN PO 08/24/17 17:30 09/23/17 17:29 Glucose (Glucose 40% Gel) 15-30 GRAMS 15 GRAMS... UD PRN PO 08/24/17 18:45 09/23/17 18:44 Glucose (Glucose Chew Tab) 4-8 Tablets 4 Tabl... UD PRN PO 08/24/17 18:45 09/23/17 18:44 Dextrose (Dextrose 50% 50ML Syringe) 25-50ML OF 50% DW IV FOR... UD PRN IV 08/24/17 18:45 09/23/17 18:44 Glucagon (Glucagon Inj) 1 mg UD PRN SQ 08/24/17 18:45 09/23/17 18:44 Apixaban (Eliquis Tab) 2.5 mg BID PO 08/25/17 19:30 09/24/17 19:29 09/03/17 08:26 2.5 MG Sodium Chloride (Higgins Nasal [place]) 1 sprays PRN PRN NA 08/25/17 20:45 09/24/17 20:44 Calcium/Vitamin D (Caltrate Plus Tab) 1 tab BID PO 08/26/17 09:00 09/25/17 08:59 09/03/17 08:24 1 TAB Acetylcysteine (Mucomyst 20% Inh Soln) 5 ml BIDR INH 08/27/17 20:00 09/26/17 19:59 09/03/17 06:59 5 ML Albuterol/ Ipratropium (Duoneb) 3 ml Q4R INH 08/27/17 20:00 09/26/17 19:59 09/03/17 06:59 3 ML Salmeterol Xinafoate/ Fluticasone (Advair Diskus 250/50 Inh) 1 puff BID INH 08/27/17 21:00 09/26/17 20:59 09/03/17 08:26 1 PUFF Tiotropium Norris (Spiriva Handihaler Inhaler) 1 puff QAM INH 08/28/17 09:00 09/27/17 08:59 09/03/17 08:23 1 PUFF Albuterol/ Ipratropium (Duoneb) 3 ml Q2H PRN INH 08/27/17 19:30 09/26/17 19:29 Guaifenesin (Mucinex Contr Rel Tab) 600 mg Q12 PO 08/27/17 21:00 09/26/17 20:59 09/03/17 08:26 600 MG Amiodarone HCL/ Dextrose 200 ml @ 16.7 mls/hr [id number] IV 08/31/17 16:45 09/30/17 16:44 09/03/17 04:36 16.7 MLS/HR Glipizide (Glucotrol Tab) 5 mg QDB PO 09/02/17 07:30 10/02/17 07:29 09/03/17 08:23 5 MG Furosemide (Lasix Tab) 80 mg BID17 PO 09/02/17 09:00 10/01/17 10:14 09/03/17 08:25 80 MG Potassium Chloride (Klor-Con M10) 10 meq BID PO 09/02/17 09:00 10/02/17 08:59 09/03/17 08:25 10 MEQ Prednisone (PredniSONE TAB) 10 mg BID PO 09/02/17 21:00 09/29/17 08:59 09/03/17 08:25 10 MG Metoprolol Tartrate (Lopressor Tab) 50 mg BID PO 09/03/17 09:00 10/03/17 08:59 09/03/17 08:24 50 MG Diltiazem HCl (Cardizem Tab) 60 mg TID PO 09/03/17 07:00 10/03/17 06:59 09/03/17 07:23 60 MG Digoxin (Lanoxin Tab) 0.125 mg DAILY@16 PO 09/03/17 16:00 10/03/17 15:59 Vital Signs: Date Time Temp Pulse Resp B/P (MAP) Pulse Ox O2 Delivery O2 Flow Rate FiO2 09/03/17 08:00 Nasal Cannula 4.0 09/03/17 07:21 101 26 132/61 (107) 09/03/17 07:21 104 101/61 (74) 09/03/17 07:08 36.4 96 18 101/65 (77) 97 Nasal Cannula 09/03/17 07:01 94 22 94 Nasal Cannula 3.0 09/03/17 04:00 90 Nasal Cannula 4.0 09/03/17 04:00 36.7 108 23 107/65 (79) 90 Nasal Cannula 4.0 09/03/17 03:12 103 22 90 Nasal Cannula 4.0 09/03/17 00:00 94 Nasal Cannula 3.0 09/02/17 23:25 36.8 123 32 92/65 (74) 94 Nasal Cannula 3.0 Humidified Oxygen 09/02/17 23:05 108 20 93 Nasal Cannula 3.0 09/02/17 20:00 95 Nasal Cannula 3.0 Humidified Oxygen 09/02/17 19:40 36.7 94 20 116/71 (86) 95 Nasal Cannula 2.0 Humidified Oxygen 09/02/17 19:05 96 18 91 Nasal Cannula 3.0 09/02/17 18:02 112 09/02/17 16:00 99 Nasal Cannula 3.0 Humidified Oxygen 09/02/17 15:48 36.5 113 20 95/67 (76) 99 Nasal Cannula 3.0 Humidified Oxygen 09/02/17 15:33 112 18 95 Nasal Cannula 3.0 09/02/17 12:00 Nasal Cannula 3.0 09/02/17 11:10 110 18 93 Nasal Cannula 3.0 Laboratory Results: Last 24 Hours Test 09/02/17 11:12 09/02/17 16:06 09/02/17 20:10 09/03/17 06:55 Bedside Glucose 288 mg/dl 298 mg/dl 319 mg/dl Sodium Level 130 mmol/L Potassium Level 3.7 mmol/L Chloride Level 88 mmol/L Carbon Dioxide Level 34 mmol/L Anion Gap 8.0 mmol/L Blood Urea Nitrogen 89 mg/dl Creatinine 1.72 mg/dl Est Creatinine Clear Calc Drug Dose 26.1 ml/min Estimated GFR () 31.5 Estimated GFR (Non- 27.2 BUN/Creatinine Ratio 51.7 Random Glucose 257 mg/dl Calcium Level 9.6 mg/dl Phosphorus Level 2.6 mg/dl Magnesium Level 2.0 mg/dl Test 09/03/17 07:26 Bedside Glucose 268 mg/dl
--- NOTE | 2017-09-03 12:46 | Progress Note ---
Subjective Date of Service: Sep 03, 2017. Subjective Pt evaluation today including: conversation w/ patient, conversation w/ family , physical exam, chart review, lab review, review of studies, review of inpatient medication list Continue doing the same, on amiodarone drip, heart rate is better controlled compared to yesterday currently is around 100 bpm, On nasal cannula oxygen 4 L/min, patient out of bed to chair, report has good urine output, pleasant conversational, eating lunch, mild dry cough, Problem List Medical Problems: (1) Dehydration Status: Acute (2) Elevated troponin Status: Acute (3) Left sided abdominal pain Status: Acute Review of Systems Constitutional: + weakness, + fatigue, No fever, No chills, No sweats, No weight loss, No problem reported Eyes: No worsening of vision, No eye pain, No redness, No discharge, No diplopia ENT: No hearing loss, No unusual epistaxis, No nasal symptoms, No sore throat, No tinnitus, No dental problems, No trouble swallowing Respiratory: + see HPI, + cough, + shortness of breath, + dyspnea on exertion, No sputum, No dyspnea at rest, No hemoptysis Cardiac: + edema, No chest pain, No orthopnea, No PND, No claudication, No palpitations Abdomen: No pain, No nausea, No vomiting, No diarrhea, No constipation Musculoskeletal: No joint pain, No muscle pain, No swelling, No calf pain Female : No dysuria, No urinary frequency, No hematuria, No incontinence, No abnormal vaginal bleeding, No vaginal discharge Neurologic: No memory loss, No paralysis, No weakness, No numbness/tingling, No vertigo, No balance problems Psychiatric: No depression symptoms, No anhedonism, No anxiety, No insomnia, No substance abuse Heme: No abnormal bleeding/bruising, No clotting problems, No swollen lymph nodes, No night sweats Endo: No fatigue, No excessive thirst, No excessive urination Skin: No rash, No itch, No new/changing skin lesions, No color change, No bleeding Objective Vital Signs Date Time Temp Pulse Resp B/P (MAP) Pulse Ox O2 Delivery O2 Flow Rate FiO2 09/03/17 12:00 Nasal Cannula 4.0 09/03/17 11:40 36.5 80 16 129/66 (87) 95 09/03/17 11:17 98 22 93 Nasal Cannula 3.0 09/03/17 08:00 Nasal Cannula 4.0 09/03/17 07:21 101 26 132/61 (107) 09/03/17 07:21 104 101/61 (74) 09/03/17 07:08 36.4 96 18 101/65 (77) 97 Nasal Cannula 09/03/17 07:01 94 22 94 Nasal Cannula 3.0 09/03/17 04:00 90 Nasal Cannula 4.0 09/03/17 04:00 36.7 108 23 107/65 (79) 90 Nasal Cannula 4.0 09/03/17 03:12 103 22 90 Nasal Cannula 4.0 09/03/17 00:00 94 Nasal Cannula 3.0 09/02/17 23:25 36.8 123 32 92/65 (74) 94 Nasal Cannula 3.0 Humidified Oxygen 09/02/17 23:05 108 20 93 Nasal Cannula 3.0 09/02/17 20:00 95 Nasal Cannula 3.0 Humidified Oxygen 09/02/17 19:40 36.7 94 20 116/71 (86) 95 Nasal Cannula 2.0 Humidified Oxygen 09/02/17 19:05 96 18 91 Nasal Cannula 3.0 09/02/17 18:02 112 09/02/17 16:00 99 Nasal Cannula 3.0 Humidified Oxygen 09/02/17 15:48 36.5 113 20 95/67 (76) 99 Nasal Cannula 3.0 Humidified Oxygen 09/02/17 15:33 112 18 95 Nasal Cannula 3.0 Physical Exam General Appearance: WD/WN, no apparent distress, + obese, + pertinent finding ( Pleasant conversational,) Eyes: normal inspection, PERRL, EOMI, sclerae normal ENT: normal ENT inspection, hearing grossly normal, pharynx normal Neck: supple, no adenopathy, thyroid normal, no JVD, no carotid bruits, trachea midline Respiratory/Chest: chest non-tender, normal breath sounds, no respiratory distress, no accessory muscle use, + decreased breath sounds, + wheezing Cardiovascular: regular rate, rhythm, no gallop, no JVD, no murmur, + pertinent finding (2+ edema which is better than yesterday) Abdomen: normal bowel sounds, non tender, soft, no organomegaly, no pulsatile mass Extremities: normal range of motion, non-tender, normal inspection, no pedal edema, no calf tenderness, normal capillary refill, pelvis stable Neurologic/Psychiatric: tool maker bench II-XII nml as tested, no motor/sensory deficits, alert, normal mood/affect, oriented x 3 Skin: normal color, warm/dry, no rash Lymphatic: no adenopathy Laboratory Results Last 24 Hours Test 09/02/17 16:06 09/02/17 20:10 09/03/17 06:55 09/03/17 07:26 Bedside Glucose 298 mg/dl 319 mg/dl 268 mg/dl Sodium Level 130 mmol/L Potassium Level 3.7 mmol/L Chloride Level 88 mmol/L Carbon Dioxide Level 34 mmol/L Anion Gap 8.0 mmol/L Blood Urea Nitrogen 89 mg/dl Creatinine 1.72 mg/dl Est Creatinine Clear Calc Drug Dose 26.1 ml/min Estimated GFR () 31.5 Estimated GFR (Non- 27.2 BUN/Creatinine Ratio 51.7 Random Glucose 257 mg/dl Calcium Level 9.6 mg/dl Phosphorus Level 2.6 mg/dl Magnesium Level 2.0 mg/dl Test 09/03/17 11:16 Bedside Glucose 312 mg/dl Assessment and Plan 81 y/o F admitted on August 24, 2017, associated with nausea, vomiting and diarrhea x 4 days, and A. fib with rapid ventricular response, now is on amiodarone drip, she developed acute on chronic respiratory failure required BiPAP, has been improving A. fib with rapid ventricular response, rate not well controlled, Has been on on amiodarone drip , will continue, cardiology follow-up is new identified, no history of A. fib, In addition to amiodarone drip patient also on oral Cardizem 60 3 times daily, and metoprolol at 50 mg p.o. twice daily continue with Eliquis for stroke prevention Cardiology may plan cardioversion if still A. fib on Tuesday PONCE upon admission , that her kidney function continue getting worse, possible cardiorenal syndrome, which has been improving after nephrology input and after starting Lasix Newspaper Inserter input appreciated, renal function continue improves on Lasix, has good urination, has been on 1.5 L daily fluid restriction, will continue Lasix 80 mg a.m. and 40 mg p.o. q. p.m. 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 , pulmonary hypertension, mucous plugging is reported on CT and there is some concern for aspiration, Patient was required BiPAP and high flow, has been getting better and improving after able to treat for cardiorenal syndrome by using diuretic, glove parts inspector input appreciated, We will slowly taper prednisone, glove parts inspector talk to patient's sons and , possible poor prognosis because of significant pulmonary hypertension Uncontrolled with A1c 7.2 of diabetic, patient continue declined using insulin because he is on allergy, continue glipizide to 5 mg, blood glucose a little bit better, Will taper prednisone , hopefully blood glucose getting better DVT prophylaxis, Eliquis Possible very poor prognosis Continued [facility] stay due to: multiple IV medications needed Discharge planning: uncertain
--- NOTE | 2017-09-03 15:36 | Nephrology Progress Note ---
Nephrology Progress Note Date of Service Sep 03, 2017. Chief Complaint PONCE Subjective Ms. Boswell was seen & examined in the ICU this afternoon. She reports that she is breathing comfortably on O2 at 3 L / min NC. She has had brisk urine output while on oral Furosemide. Her peripheral edema is mildly improved. Review of Systems Constitutional: No fever Cardiovascular: No chest pain Respiratory: No dyspnea at rest Abdomen: No pain, No nausea, No vomiting Extremities: + leg edema A complete review of systems was performed. Pertinent positives are noted above. All other systems are negative. Vital Signs Last 8 Hrs Date Time Temp Pulse Resp B/P (MAP) Pulse Ox O2 Delivery O2 Flow Rate FiO2 09/03/17 14:33 90 22 91 Nasal Cannula 3.0 09/03/17 12:00 Nasal Cannula 4.0 09/03/17 11:40 36.5 80 16 129/66 (87) 95 09/03/17 11:17 98 22 93 Nasal Cannula 3.0 09/03/17 08:00 Nasal Cannula 4.0 I & O 24-Hour Column 09/04/17 08:00 Intake Total 946 ml Output Total 600 ml Balance 346 ml Last Recorded Weight Weight (Kilograms): 85.500 Physical Exam General Appearance: no apparent distress Head: normocephalic, atraumatic Eyes: PERRL, EOMI Neck: no adenopathy Respiratory/Chest: lungs clear Cardiovascular: + irregularly irregular Abdomen/GI: normal bowel sounds, non tender, soft Extremities/Musculoskelatal: + swelling (2+ pretibial pitting edema) Neurologic/Psych: alert, oriented x 3 Family History No pertinent family history Social History Smokeless Tobacco Use: No Drug Use: none Marital Status: Occupation: unemployed Laboratory Results Past 24 Hours 09/03/17 06:55 Test 09/02/17 16:06 09/02/17 20:10 09/03/17 06:55 09/03/17 07:26 Bedside Glucose 298 mg/dl (70-90) 319 mg/dl (70-90) 268 mg/dl (70-90) Anion Gap 8.0 mmol/L (3-11) Est Creatinine Clear Calc Drug Dose 26.1 ml/min Estimated GFR () 31.5 Estimated GFR (Non- 27.2 BUN/Creatinine Ratio 51.7 (10-20) Calcium Level 9.6 mg/dl (8.5-10.1) Phosphorus Level 2.6 mg/dl (2.5-4.9) Magnesium Level 2.0 mg/dl (1.8-2.4) Test 09/03/17 11:16 Bedside Glucose 312 mg/dl (70-90) Allergies Coded Allergies: Insulin (Verified Adverse Reaction, Unknown, other, 08/31/17) Patient states that she has an insulin allergy that caused cardiac arrest, however she admitted to nursing that she is not allergic to insulin, she just does not want to take it. Medications Current Inpatient Medications Medications (Trade) Dose Ordered Sig/Mayito Route Start Time Stop Time Status Last Admin Dose Admin Atorvastatin Calcium (Lipitor Tab) 80 mg DAILY PO 08/25/17 09:00 09/24/17 08:59 09/03/17 08:23 80 MG Acetaminophen (Tylenol Tab) 650 mg Q4H PRN PO 08/24/17 17:30 09/23/17 17:29 Al Hydrox/Mg Hydrox/Simethicone (Maalox Max Susp) 15 ml Q4H PRN PO 08/24/17 17:30 09/23/17 17:29 Magnesium Hydroxide (Milk Of Magnesia Susp) 30 ml Q12H PRN PO 08/24/17 17:30 09/23/17 17:29 Ondansetron HCl (Zofran Inj) 4 mg Q6H PRN IV 08/24/17 17:30 09/23/17 17:29 08/27/17 14:33 4 MG Morphine Sulfate (MoRPHine SULFATE INJ) 2 mg Q30M PRN IV 08/24/17 17:30 09/07/17 17:29 Polyethylene (Miralax Powder Packet) 17 gm DAILY PRN PO 08/24/17 17:30 09/23/17 17:29 Glucose (Glucose 40% Gel) 15-30 GRAMS 15 GRAMS... UD PRN PO 08/24/17 18:45 09/23/17 18:44 Glucose (Glucose Chew Tab) 4-8 Tablets 4 Tabl... UD PRN PO 08/24/17 18:45 09/23/17 18:44 Dextrose (Dextrose 50% 50ML Syringe) 25-50ML OF 50% DW IV FOR... UD PRN IV 08/24/17 18:45 09/23/17 18:44 Glucagon (Glucagon Inj) 1 mg UD PRN SQ 08/24/17 18:45 09/23/17 18:44 Apixaban (Eliquis Tab) 2.5 mg BID PO 08/25/17 19:30 09/24/17 19:29 09/03/17 08:26 2.5 MG Sodium Chloride ([place] Nasal [place]) 1 sprays PRN PRN NA 08/25/17 20:45 09/24/17 20:44 Calcium/Vitamin D (Caltrate Plus Tab) 1 tab BID PO 08/26/17 09:00 09/25/17 08:59 09/03/17 08:24 1 TAB Acetylcysteine (Mucomyst 20% Inh Soln) 5 ml BIDR INH 08/27/17 20:00 09/26/17 19:59 09/03/17 06:59 5 ML Albuterol/ Ipratropium (Duoneb) 3 ml Q4R INH 08/27/17 20:00 09/26/17 19:59 09/03/17 14:32 3 ML Salmeterol Xinafoate/ Fluticasone (Advair Diskus 250/50 Inh) 1 puff BID INH 08/27/17 21:00 09/26/17 20:59 09/03/17 08:26 1 PUFF Tiotropium [place] (Spiriva Handihaler Inhaler) 1 puff QAM INH 08/28/17 09:00 09/27/17 08:59 09/03/17 08:23 1 PUFF Albuterol/ Ipratropium (Duoneb) 3 ml Q2H PRN INH 08/27/17 19:30 09/26/17 19:29 Guaifenesin (Mucinex Contr Rel Tab) 600 mg Q12 PO 08/27/17 21:00 09/26/17 20:59 09/03/17 08:26 600 MG Amiodarone HCL/ Dextrose 200 ml @ 16.7 mls/hr [id number] IV 08/31/17 16:45 09/30/17 16:44 09/03/17 04:36 16.7 MLS/HR Glipizide (Glucotrol Tab) 5 mg QDB PO 09/02/17 07:30 10/02/17 07:29 09/03/17 08:23 5 MG Furosemide (Lasix Tab) 80 mg BID17 PO 09/02/17 09:00 10/01/17 10:14 09/03/17 08:25 80 MG Potassium Chloride (Klor-Con M10) 10 meq BID PO 09/02/17 09:00 10/02/17 08:59 09/03/17 08:25 10 MEQ Prednisone (PredniSONE TAB) 10 mg BID PO 09/02/17 21:00 09/29/17 08:59 09/03/17 08:25 10 MG Metoprolol Tartrate (Lopressor Tab) 50 mg BID PO 09/03/17 09:00 10/03/17 08:59 09/03/17 08:24 50 MG Diltiazem HCl (Cardizem Tab) 60 mg TID PO 09/03/17 07:00 10/03/17 06:59 09/03/17 07:23 60 MG Digoxin (Lanoxin Tab) 0.125 mg DAILY@16 PO 09/03/17 16:00 10/03/17 15:59 Impression (1) Acute renal insufficiency (2) Moderate to severe pulmonary hypertension (3) Atrial fibrillation with RVR (4) HTN (hypertension) (5) DM (diabetes mellitus) (6) Cor pulmonale Arlen Boswell is an 81-year-old female with acute kidney injury ( baseline creatinine 1.0) and atrial fibrillation w/ RVR. Medical history is notable for diabetes mellitus II, chronic diastolic CHF and right heart failure with severe pulmonary hypertension. PONCE is consistent with prerenal azotemia with possible ATN. Creatinine improved slightly in the past 24 hours. Urine output is appropriate. Renal US was normal. UA is bland. Metabolic profile is otherwise normal. Arlen has atrial fibrillation. She remains on amiodarone gtt. Recommendations -- Furosemide 80 mg PO BID -- Document I/O's -- Repeat metabolic profile tomorrow AM -- Maintain 1.5 L daily fluid restriction for hyponatremia -- Renal diet -- Consider palliative care consultation due to advanced pulmonary hypertension. Focus of care will remain management of volume status and improving dyspnea
[2017-09-03] MEDS: DIGOXIN 0.125 MG TAB PO SCH (16:29)
[2017-09-03] MEDS: POLYETHYLENE (MIRALAX) 17 GM PACK PO PRN (20:10)
[2017-09-04] VITALS (11 sets, daily range): BP systolic 90–120; BP diastolic 56–77; PULSE 83–109; TEMP 36.4–37; O2SAT 89–96
[2017-09-04] MEDS: AMIODARONE / D5W 200 ML IV SCH ×2 (03:45→16:13)
[2017-09-04] MEDS: ALBUT/IPRATROP 3MG/0.5MG NEB 3 ML VIAL INH SCH ×6 (04:00→23:04)
[2017-09-04 06:15] LABS: CALCIUM 9.7 mg/dl (8.5-10.1); CREATININE 1.63 mg/dl (0.60-1.20); PHOSPHORUS 2.7 mg/dl (2.5-4.9); POTASSIUM 3.6 mmol/L (3.5-5.1)
[2017-09-04] MEDS: ACETYLCYSTEINE 20% INHAL SOLN ***DISPENSED BY RESP. INH SCH ×2 (06:54→19:15)
[2017-09-04] MEDS: FLUTICASONE/SALMETEROL 250/50 (ADVAIR) 14 PUFF/1 INHALER INH SCH ×2 (08:36→20:59)
[2017-09-04] MEDS: FUROSEMIDE 80 MG TAB PO SCH (08:37)
[2017-09-04] MEDS: ATORVASTATIN 40 MG TAB PO SCH (08:37)
[2017-09-04] MEDS: POTASSIUM CHLORIDE 10 MEQ TABCR PO SCH ×2 (08:37→20:29)
[2017-09-04] MEDS: APIXABAN 2.5 MG TAB PO SCH ×2 (08:37→20:28)
[2017-09-04] MEDS: DILTIAZEM HCL 60 MG TAB PO SCH ×3 (08:38→20:28)
[2017-09-04] MEDS: TIOTROPIUM BROMIDE 5 PUFF/90 MCG INH INH SCH (08:38)
[2017-09-04] MEDS: METOPROLOL TARTRATE 50 MG TAB PO SCH ×2 (08:38→20:29)
[2017-09-04] MEDS: CALCIUM 600MG + VIT D 400 IU TAB PO SCH ×2 (08:38→20:28)
[2017-09-04] MEDS: GUAIFENESIN 600 MG TABCR PO SCH ×2 (08:38→20:27)
--- NOTE | 2017-09-04 10:50 | Nephrology Progress Note ---
Nephrology Progress Note Date of Service Sep 04, 2017. Chief Complaint PONCE Subjective Ms. Boswell was seen & examined in the ICU this morning. She reports that her LE edema has improved. She has had brisk UO in response to diuretic therapy Review of Systems Constitutional: No fever Cardiovascular: No chest pain Respiratory: No dyspnea at rest Abdomen: No pain, No nausea, No vomiting Extremities: + leg edema A complete review of systems was performed. Pertinent positives are noted above. All other systems are negative. Vital Signs Last 8 Hrs Date Time Temp Pulse Resp B/P (MAP) Pulse Ox O2 Delivery O2 Flow Rate FiO2 09/04/17 08:16 36.8 109 16 94/67 (76) 96 09/04/17 08:00 Nasal Cannula 4.0 09/04/17 06:56 94 18 94 Nasal Cannula 3.0 09/04/17 04:33 86 18 93 Nasal Cannula 3.0 09/04/17 04:00 Nasal Cannula 4.0 Humidified Oxygen 09/04/17 03:46 37.0 92 22 92/56 (68) 92 Nasal Cannula 4.0 Last Recorded Weight Weight (Kilograms): 85.000 Physical Exam General Appearance: no apparent distress Head: normocephalic, atraumatic Eyes: PERRL Neck: no adenopathy Respiratory/Chest: lungs clear Cardiovascular: regular rate, rhythm Abdomen/GI: normal bowel sounds, non tender, soft Extremities/Musculoskelatal: + swelling (1+ pretibial pitting edema) Neurologic/Psych: alert, oriented x 3 Family History No pertinent family history Social History Smokeless Tobacco Use: No Drug Use: none Marital Status: Occupation: unemployed Laboratory Results Past 24 Hours 09/04/17 05:36 Test 09/03/17 11:16 09/03/17 16:23 09/03/17 20:12 09/04/17 05:36 Bedside Glucose 312 mg/dl (70-90) 383 mg/dl (70-90) 356 mg/dl (70-90) Anion Gap 8.0 mmol/L (3-11) Est Creatinine Clear Calc Drug Dose 27.5 ml/min Estimated GFR () 33.7 Estimated GFR (Non- 29.0 BUN/Creatinine Ratio 48.5 (10-20) Calcium Level 9.7 mg/dl (8.5-10.1) Phosphorus Level 2.7 mg/dl (2.5-4.9) Magnesium Level 1.9 mg/dl (1.8-2.4) Test 09/04/17 06:51 Bedside Glucose 277 mg/dl (70-90) Allergies Coded Allergies: Insulin (Verified Adverse Reaction, Unknown, other, 08/31/17) Patient states that she has an insulin allergy that caused cardiac arrest, however she admitted to nursing that she is not allergic to insulin, she just does not want to take it. Medications Current Inpatient Medications Medications (Trade) Dose Ordered Sig/Mayito Route Start Time Stop Time Status Last Admin Dose Admin Atorvastatin Calcium (Lipitor Tab) 80 mg DAILY PO 08/25/17 09:00 09/24/17 08:59 09/04/17 08:37 80 MG Acetaminophen (Tylenol Tab) 650 mg Q4H PRN PO 08/24/17 17:30 09/23/17 17:29 Al Hydrox/Mg Hydrox/Simethicone (Maalox Max Susp) 15 ml Q4H PRN PO 08/24/17 17:30 09/23/17 17:29 Magnesium Hydroxide (Milk Of Magnesia Susp) 30 ml Q12H PRN PO 08/24/17 17:30 09/23/17 17:29 Ondansetron HCl (Zofran Inj) 4 mg Q6H PRN IV 08/24/17 17:30 09/23/17 17:29 08/27/17 14:33 4 MG Morphine Sulfate (MoRPHine SULFATE INJ) 2 mg Q30M PRN IV 08/24/17 17:30 09/07/17 17:29 Polyethylene (Miralax Powder Packet) 17 gm DAILY PRN PO 08/24/17 17:30 09/23/17 17:29 09/03/17 20:10 17 GM Glucose (Glucose 40% Gel) 15-30 GRAMS 15 GRAMS... UD PRN PO 08/24/17 18:45 09/23/17 18:44 Glucose (Glucose Chew Tab) 4-8 Tablets 4 Tabl... UD PRN PO 08/24/17 18:45 09/23/17 18:44 Dextrose (Dextrose 50% 50ML Syringe) 25-50ML OF 50% DW IV FOR... UD PRN IV 08/24/17 18:45 09/23/17 18:44 Glucagon (Glucagon Inj) 1 mg UD PRN SQ 08/24/17 18:45 09/23/17 18:44 Apixaban (Eliquis Tab) 2.5 mg BID PO 08/25/17 19:30 09/24/17 19:29 09/04/17 08:37 2.5 MG Sodium Chloride ([place] Nasal [place]) 1 sprays PRN PRN NA 08/25/17 20:45 09/24/17 20:44 Calcium/Vitamin D (Caltrate Plus Tab) 1 tab BID PO 08/26/17 09:00 09/25/17 08:59 09/04/17 08:38 1 TAB Acetylcysteine (Mucomyst 20% Inh Soln) 5 ml BIDR INH 08/27/17 20:00 09/26/17 19:59 09/04/17 06:54 5 ML Albuterol/ Ipratropium (Duoneb) 3 ml Q4R INH 08/27/17 20:00 09/26/17 19:59 09/04/17 06:54 3 ML Salmeterol Xinafoate/ Fluticasone (Advair Diskus 250/50 Inh) 1 puff BID INH 08/27/17 21:00 09/26/17 20:59 09/04/17 08:36 1 PUFF Tiotropium [place] (Spiriva Handihaler Inhaler) 1 puff QAM INH 08/28/17 09:00 09/27/17 08:59 09/04/17 08:38 1 PUFF Albuterol/ Ipratropium (Duoneb) 3 ml Q2H PRN INH 08/27/17 19:30 09/26/17 19:29 Guaifenesin (Mucinex Contr Rel Tab) 600 mg Q12 PO 08/27/17 21:00 09/26/17 20:59 09/04/17 08:38 600 MG Amiodarone HCL/ Dextrose 200 ml @ 16.7 mls/hr [id number] IV 08/31/17 16:45 09/30/17 16:44 09/04/17 03:45 16.7 MLS/HR Glipizide (Glucotrol Tab) 5 mg QDB PO 09/02/17 07:30 10/02/17 07:29 09/04/17 08:38 5 MG Furosemide (Lasix Tab) 80 mg BID17 PO 09/02/17 09:00 10/01/17 10:14 09/04/17 08:37 80 MG Potassium Chloride (Klor-Con M10) 10 meq BID PO 09/02/17 09:00 10/02/17 08:59 09/04/17 08:37 10 MEQ Prednisone (PredniSONE TAB) 10 mg BID PO 09/02/17 21:00 09/29/17 08:59 09/04/17 08:36 10 MG Metoprolol Tartrate (Lopressor Tab) 50 mg BID PO 09/03/17 09:00 10/03/17 08:59 09/04/17 08:38 50 MG Diltiazem HCl (Cardizem Tab) 60 mg TID PO 09/03/17 07:00 10/03/17 06:59 09/04/17 08:38 60 MG Digoxin (Lanoxin Tab) 0.125 mg DAILY@16 PO 09/03/17 16:00 10/03/17 15:59 09/03/17 16:29 0.125 MG Impression (1) Acute renal insufficiency (2) Moderate to severe pulmonary hypertension (3) Atrial fibrillation with RVR (4) HTN (hypertension) (5) DM (diabetes mellitus) (6) Cor pulmonale Arlen Boswell is an 81-year-old female with acute kidney injury ( baseline creatinine 1.0) and atrial fibrillation w/ RVR. Medical history is notable for diabetes mellitus II, chronic diastolic CHF and right heart failure with severe pulmonary hypertension. PONCE is consistent with prerenal azotemia with possible ATN. Creatinine improved slightly in the past 24 hours. Urine output is appropriate. Renal US was normal. UA is bland. Metabolic profile is otherwise normal. Arlen has atrial fibrillation. She remains on amiodarone gtt. Recommendations -- Patient is developing diuretic induced alkalosis. LE edema is markedly improved. Will reduce Furosemide back to her pre-hospital dose of 80 mg po daily -- Recommend LE compression stockings when OOB -- Monitor I/O's -- Repeat metabolic profile tomorrow AM -- Maintain 1.5 L daily fluid restriction for hyponatremia -- Consider palliative care consultation due to advanced pulmonary hypertension. Focus of care will remain management of volume status and improving dyspnea
--- NOTE | 2017-09-04 14:53 | Progress Note ---
Subjective Date of Service: Sep 04, 2017. Subjective Pt evaluation today including: conversation w/ patient, conversation w/ family , physical exam, chart review, lab review, review of studies, review of inpatient medication list Continue doing well, sitting up in chair, difficulty breathing is in the baseline, has good urine output continually, denies chest pain palpitation Problem List Medical Problems: (1) Dehydration Status: Acute (2) Elevated troponin Status: Acute (3) Left sided abdominal pain Status: Acute Review of Systems Constitutional: + weakness, + fatigue, No fever, No chills, No sweats, No weight loss, No problem reported Eyes: No worsening of vision, No eye pain, No redness, No discharge, No diplopia ENT: No hearing loss, No unusual epistaxis, No nasal symptoms, No sore throat, No tinnitus, No dental problems, No trouble swallowing Respiratory: + wheezing, + shortness of breath, + dyspnea on exertion, No cough , No sputum, No dyspnea at rest, No hemoptysis Cardiac: + edema, No chest pain, No orthopnea, No PND, No claudication, No palpitations Abdomen: No pain, No nausea, No vomiting, No diarrhea, No constipation Musculoskeletal: No joint pain, No muscle pain, No swelling, No calf pain Female : No dysuria, No urinary frequency, No hematuria, No incontinence, No abnormal vaginal bleeding, No vaginal discharge Neurologic: No memory loss, No paralysis, No weakness, No numbness/tingling, No vertigo, No balance problems Psychiatric: No depression symptoms, No anhedonism, No anxiety, No insomnia, No substance abuse Heme: No abnormal bleeding/bruising, No clotting problems, No swollen lymph nodes, No night sweats Endo: No fatigue, No excessive thirst, No excessive urination Skin: No rash, No itch, No new/changing skin lesions, No color change, No bleeding Objective Vital Signs Date Time Temp Pulse Resp B/P (MAP) Pulse Ox O2 Delivery O2 Flow Rate FiO2 09/04/17 12:00 Nasal Cannula 4.0 09/04/17 11:55 36.5 100 18 90/63 (72) 96 09/04/17 11:08 83 18 94 Nasal Cannula 4.0 09/04/17 08:16 36.8 109 16 94/67 (76) 96 09/04/17 08:00 Nasal Cannula 4.0 09/04/17 06:56 94 18 94 Nasal Cannula 3.0 09/04/17 04:33 86 18 93 Nasal Cannula 3.0 09/04/17 04:00 Nasal Cannula 4.0 Humidified Oxygen 09/04/17 03:46 37.0 92 22 92/56 (68) 92 Nasal Cannula 4.0 09/04/17 00:00 Nasal Cannula 4.0 Humidified Oxygen 09/03/17 23:56 36.4 92 22 101/65 (77) 93 Nasal Cannula 4.0 Humidified Oxygen 09/03/17 23:24 82 22 94 Nasal Cannula 3.0 09/03/17 20:00 103 30 09/03/17 20:00 Nasal Cannula 3.0 Humidified Oxygen 09/03/17 19:33 36.8 88 22 111/64 (80) 94 Nasal Cannula 3.0 Humidified Oxygen 09/03/17 19:33 93 18 111/64 (81) 09/03/17 19:27 92 20 91 Nasal Cannula 3.0 09/03/17 19:00 84 15 09/03/17 16:29 112 09/03/17 16:25 36.4 107 18 117/75 (89) 93 Nasal Cannula 3.0 Humidified Oxygen 09/03/17 16:00 Nasal Cannula 4.0 Physical Exam General Appearance: WD/WN, no apparent distress Eyes: normal inspection, PERRL, EOMI, sclerae normal ENT: normal ENT inspection, hearing grossly normal, pharynx normal Neck: supple, no adenopathy, thyroid normal, no JVD, no carotid bruits, trachea midline Respiratory/Chest: chest non-tender, normal breath sounds, no respiratory distress, no accessory muscle use, + decreased breath sounds Cardiovascular: regular rate, rhythm, no gallop, no JVD, no murmur, + irregularly irregular, + pertinent finding (2+ edema, is better than yesterday) Abdomen: normal bowel sounds, non tender, soft, no organomegaly, no pulsatile mass Extremities: normal range of motion, non-tender, normal inspection, no pedal edema, no calf tenderness, normal capillary refill, pelvis stable Neurologic/Psychiatric: torch straightener and heater II-XII nml as tested, no motor/sensory deficits, alert, normal mood/affect, oriented x 3 Skin: normal color, warm/dry, no rash Lymphatic: no adenopathy Laboratory Results Last 24 Hours Test 3/17/18 16:23 09/03/17 20:12 09/04/17 05:36 09/04/17 06:51 Bedside Glucose 383 mg/dl 356 mg/dl 277 mg/dl Sodium Level 128 mmol/L Potassium Level 3.6 mmol/L Chloride Level 87 mmol/L Carbon Dioxide Level 33 mmol/L Anion Gap 8.0 mmol/L Blood Urea Nitrogen 79 mg/dl Creatinine 1.63 mg/dl Est Creatinine Clear Calc Drug Dose 27.5 ml/min Estimated GFR () 33.7 Estimated GFR (Non- 29.0 BUN/Creatinine Ratio 48.5 Random Glucose 261 mg/dl Calcium Level 9.7 mg/dl Phosphorus Level 2.7 mg/dl Magnesium Level 1.9 mg/dl Test 09/04/17 11:20 09/04/17 11:23 Bedside Glucose 399 mg/dl 298 mg/dl Assessment and Plan 81 y/o F admitted on August 24, 2017, associated with nausea, vomiting and diarrhea x 4 days, and A. fib with rapid ventricular response, now is on amiodarone drip, she developed acute on chronic respiratory failure required BiPAP, has been off BiPAP and back to nasal cannula 4 L/min, which is her baseline , improving A. fib with rapid ventricular response, rate not well controlled, Has been on on amiodarone drip , will continue, cardiology follow-up is new identified in this admission, no history of A. fib, In addition to amiodarone drip patient also on oral Cardizem 60 3 times daily, and metoprolol at 50 mg p.o. twice daily continue with Eliquis for stroke prevention Cardiology may plan cardioversion if still A. fib on Tuesday, his order a dobutamine diet PONCE upon admission , that her kidney function continue getting worse, possible cardiorenal syndrome, which has been improving after nephrology input and after starting Lasix Offset Pressman input appreciated, renal function continue improve, creatinine is 1.6 today from yesterday 1.72 has been on 1.5 L daily fluid restriction, will continue Lasix 80 mg a.m. and 80 mg p.o. q. p.m. 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 , pulmonary hypertension, mucous plugging is reported on CT and there is some concern for aspiration, Patient was required BiPAP and high flow, has been getting better and improving after able to treat for cardiorenal syndrome by using diuretic, senior manager mmcoe input appreciated, We will slowly taper prednisone, senior manager mmcoe talk to patient's sons and , possible poor prognosis because of significant pulmonary hypertension, again bedside today discussed with patient's about pulmonary hypertension and possible poor prognosis Uncontrolled with A1c 7.2 of diabetic, patient continue declined using insulin because he is on allergy, continue glipizide to 5 mg, blood glucose a little bit better, Will taper prednisone , hopefully blood glucose getting better DVT prophylaxis, Eliquis Discharge plan possible rehab after cardioversion Continued [facility] stay due to: multiple IV medications needed Discharge planning: uncertain
[2017-09-04] MEDS: DIGOXIN 0.125 MG TAB PO SCH (16:06)
[2017-09-04] MEDS ORDERED: NURSING VERBAL MED ORDER ONE (16:30)
[2017-09-05] VITALS (19 sets, daily range): BP systolic 95–178; BP diastolic 57–92; PULSE 76–100; TEMP 36.6–37.1; O2SAT 90–97
[2017-09-05] MEDS: ALBUT/IPRATROP 3MG/0.5MG NEB 3 ML VIAL INH SCH ×6 (03:25→23:00)
[2017-09-05] MEDS: AMIODARONE / D5W 200 ML IV SCH ×2 (03:31→16:32)
[2017-09-05 06:05] LABS: HEMATOCRIT 42.9 % (37-47); HEMOGLOBIN 14.4 g/dL (12.0-16.0); MEAN CELL VOLUME 90.7 fL (80-100); MEAN CORPUSCULAR HEMOGLOBIN 30.4 pg (25-34); MEAN CORPUSCULAR HGB CONC 33.6 g/dl (32-36); PLATELET COUNT 158 K/uL (130-400); RED CELL DISTRIBUTION WIDTH CV 15.4 % (11.5-14.5); RED CELL DISTRIBUTION WIDTH SD 51.4 fL (36.4-46.3); WHITE BLOOD COUNT 14.87 K/uL (4.8-10.8)
[2017-09-05 06:25] LABS: CREATININE 1.58 mg/dl (0.60-1.20)
[2017-09-05 06:26] LABS: PHOSPHORUS 2.6 mg/dl (2.5-4.9); POTASSIUM 3.7 mmol/L (3.5-5.1)
[2017-09-05] MEDS: ACETYLCYSTEINE 20% INHAL SOLN ***DISPENSED BY RESP. INH SCH ×2 (07:08→19:18)
[2017-09-05] MEDS ORDERED: LIDOCAINE HCL 2% 2 ML VIAL (20MG/ML) ONE (07:31)
[2017-09-05] MEDS ORDERED: PROPOFOL IV EMULSION 10 MG/ML 20 ML VIAL IV ONE (07:31)
--- NOTE | 2017-09-05 07:55 | Cardiology Follow-Up ---
Subjective Date of Service: Sep 05, 2017. Pt evaluation today including: conversation w/ patient, physical exam, lab review, review of inpatient medication list History of Present Illness This is an 81-year-old woman who has a history of diabetes mellitus, hypertension, coronary artery disease (identified at catheterization on June 25, 2014) as well as severe pulmonary hypertension. She has had stent placement at [facility] on two occasions by her recollection, not recently. She presents now with vomiting for 4 days, lower abdominal discomfort as well as diarrhea. She was not having chest symptoms, specifically not having palpitations, chest discomfort, etc. She is chronically on oxygen on arrival in the emergency room she was noted to be in atrial fibrillation with a rapid ventricular response. She was started on intravenous diltiazem and heparin. By morning she converted back to sinus rhythm with premature atrial beats. On further discussion with her she uses a pulse oximeter at home, she notices from time to time that her heart rate is elevated (in the 115 bpm range) whereas most the time it is in the 70 bpm range. She is unaware of palpitations but has not been in the hospital either when we have documented atrial fibrillation. I suspect she has this at home and that this is not a new finding. She converted back to atrial fibrillation and we have had a lot of difficulty controlling her atrial arrhythmia, ultimately we titrated her oral medications to diltiazem 360 mg daily and metoprolol succinate 100 mg daily. Her heart rate has remained elevated on this regimen, I therefore added amiodarone intravenously in hopes of converting her rhythm. She has remained in atrial fibrillation however. We had scheduled cardioversion for this morning as she would be better off in SR. Social History Smoking Status: Former Smoker History of Alcohol Use: No Review of Systems Respiratory: + wheezing, + shortness of breath, + dyspnea on exertion, No cough , No sputum, No dyspnea at rest, No hemoptysis Cardiac: + edema, No chest pain, No orthopnea, No PND, No claudication, No palpitations Objective Vital Signs Past 12 Hours Date Time Temp Pulse Resp B/P (MAP) Pulse Ox O2 Delivery O2 Flow Rate FiO2 09/05/17 07:08 84 20 96 Nasal Cannula 4.0 09/05/17 04:00 Nasal Cannula 4.0 Humidified Oxygen 09/05/17 03:40 37.1 82 20 109/57 (74) 93 Nasal Cannula 4.0 3/19/18 03:25 76 22 97 Nasal Cannula 4.0 09/05/17 00:00 36.7 84 19 95/62 (73) 92 Nasal Cannula 4.0 09/05/17 00:00 Nasal Cannula 4.0 Humidified Oxygen 09/04/17 23:04 89 18 94 Nasal Cannula 4.0 09/04/17 20:00 Nasal Cannula 4.0 Humidified Oxygen Last Recorded Weight-Kilograms: 84.600 Physical Exam Constitutional: General Apperance: heathly-appearing, overweight Level of Distress: NAD Ambulation: limited ambulation Lungs: Respiratory effort: no dyspnea Auscultation: no wheezing, decreased breath sounds Cardiovascular: Heart Auscultation: no murmurs, no rubs, no gallops, tachycardia, irregular rate rhythm Peripheral Pulses: Bruits: none appreciated Extremities: edema (+2 bilateral) Data Laboratory Results: Last 24 Hours Test 09/04/17 11:20 09/04/17 11:23 09/04/17 16:21 09/04/17 20:04 Bedside Glucose 399 mg/dl 298 mg/dl 335 mg/dl 239 mg/dl Test 09/05/17 05:42 White Blood Count 14.87 K/uL Red Blood Count 4.73 M/uL Hemoglobin 14.4 g/dL Hematocrit 42.9 % Mean Corpuscular Volume 90.7 fL Mean Corpuscular Hemoglobin 30.4 pg Mean Corpuscular Hemoglobin Concent 33.6 g/dl RDW Standard Deviation 51.4 fL RDW Coefficient of Variation 15.4 % Platelet Count 158 K/uL Mean Platelet Volume 11.0 fL Sodium Level 131 mmol/L Potassium Level 3.7 mmol/L Chloride Level 88 mmol/L Carbon Dioxide Level 34 mmol/L Anion Gap 10.0 mmol/L Blood Urea Nitrogen 75 mg/dl Creatinine 1.58 mg/dl Est Creatinine Clear Calc Drug Dose 28.3 ml/min Estimated GFR () 34.9 Estimated GFR (Non- 30.2 BUN/Creatinine Ratio 47.3 Random Glucose 235 mg/dl Calcium Level 10.0 mg/dl Phosphorus Level 2.6 mg/dl Magnesium Level 1.9 mg/dl Telemetry reviewed: Remains in SR Assessment and Plan 1. Atrial flutter/fibrillation: Her presentation atrial flutter is a new diagnosis however I suspect she has had it before as noted in the HPI. She arrived in atrial fibrillation and was placed on anticoagulation when she was admitted, she had converted to sinus rhythm but now is back in atrial fibrillation for a number of days. The stroke risk should be low if we convert her back to normal rhythm and that may be the best option, I had hoped that amiodarone would do it, but that has not after several days of intravenous amiodarone. Her heart rate also remains fast and her blood pressure remains borderline. She remains in SR and we will perform cardioversion. I reviewed the indications, procedure, risks and alternatives with here and she understands and agrees to proceed. Consent obtained. 2. Abnormal cardiac enzymes: She had low-grade abnormal cardiac enzymes on admission but I think this is consistent with demand ischemia from her known coronary artery disease and her rapid heart rate. 3. Coronary disease: She does not have symptoms of myocardial ischemia, but she did not in the past either. She does not have much to suggest active ischemia on her electrocardiogram and her enzymes are more in keeping with demand ischemia. I would not pursue further evaluation at this time. I do think we should get her heart rate under better control however with her history of coronary disease. 4. Pulmonary hypertension: She has a history of pulmonary hypertension, she has severe pulmonary hypertension and tricuspid regurgitation on her current echo but this is similar to before. There is probably little that can be done with this but no doubt it contributes to her edema. 5. Edema: She still has peripheral edema, her weight had been increasing for several days but is now decreasing again and hopefully this will help with her edema. Thank you for allowing me to participate in her care.
--- NOTE | 2017-09-05 08:08 | Cardioversion ---
Electricial Cardioversion Rpt Date of Service: 09/05/2017 Electrical Cardioversion Rprt Unsuccessful cardioversion, 200J failed, 360 failed and after moving patches 360 failed again. No complications. Return to room and further recommendations to follow.
--- NOTE | 2017-09-05 09:01 | Anesthesiology Progress Note ---
Anesthesia Post Op Note Date & Time Sep 05, 2017 at 09:01 Vital Signs Pain Intensity: 0 Vital Signs Past 12 Hours Date Time Temp Pulse Resp B/P (MAP) Pulse Ox O2 Delivery O2 Flow Rate FiO2 09/05/17 08:32 92 16 149/68 (95) 95 Nasal Cannula 6 09/05/17 08:27 91 16 168/65 (99) 95 Nasal Cannula 6 09/05/17 08:22 88 16 172/64 (100) 95 Nasal Cannula 6 09/05/17 08:17 93 16 168/56 (93) 96 Nasal Cannula 6 09/05/17 08:12 100 16 178/60 92 Nasal Cannula 6 09/05/17 08:10 100 16 178/69 92 Nasal Cannula 6 09/05/17 08:05 92 16 146/92 91 Nasal Cannula 6 09/05/17 08:00 92 16 159/71 95 Room Air 09/05/17 07:08 84 20 96 Nasal Cannula 4.0 09/05/17 04:00 Nasal Cannula 4.0 Humidified Oxygen 09/05/17 03:40 37.1 82 20 109/57 (74) 93 Nasal Cannula 4.0 09/05/17 03:25 76 22 97 Nasal Cannula 4.0 09/05/17 00:00 36.7 84 19 95/62 (73) 92 Nasal Cannula 4.0 09/05/17 00:00 Nasal Cannula 4.0 Humidified Oxygen 09/04/17 23:04 89 18 94 Nasal Cannula 4.0 Notes Mental Status: alert / awake / arousable, participated in evaluation Pt Amnestic to Procedure: Yes Nausea / Vomiting: adequately controlled Pain: adequately controlled Airway Patency, RR, SpO2: stable & adequate BP & HR: stable & adequate Hydration State: stable & adequate Anesthetic Complications: no major complications apparent
[2017-09-05] MEDS: DILTIAZEM HCL 60 MG TAB PO SCH ×3 (09:15→22:21)
[2017-09-05] MEDS: APIXABAN 2.5 MG TAB PO SCH ×2 (09:15→22:22)
[2017-09-05] MEDS: FUROSEMIDE 80 MG TAB PO SCH (09:16)
[2017-09-05] MEDS: ATORVASTATIN 40 MG TAB PO SCH (09:16)
[2017-09-05] MEDS: METOPROLOL TARTRATE 50 MG TAB PO SCH ×2 (09:16→22:23)
[2017-09-05] MEDS: GUAIFENESIN 600 MG TABCR PO SCH ×2 (09:16→22:22)
[2017-09-05] MEDS: POTASSIUM CHLORIDE 10 MEQ TABCR PO SCH ×2 (09:16→22:23)
[2017-09-05] MEDS: TIOTROPIUM BROMIDE 5 PUFF/90 MCG INH INH SCH (09:17)
[2017-09-05] MEDS: FLUTICASONE/SALMETEROL 250/50 (ADVAIR) 14 PUFF/1 INHALER INH SCH ×2 (09:17→22:21)
[2017-09-05] MEDS: CALCIUM 600MG + VIT D 400 IU TAB PO SCH ×2 (09:17→22:23)
[2017-09-05] MEDS: POLYETHYLENE (MIRALAX) 17 GM PACK PO PRN (09:29)
--- NOTE | 2017-09-05 10:38 | Palliative Care Consultation ---
Consultation Date of Consultation: Sep 05, 2017. Requesting Physician: Dr. Velazco Attending Physician: Dr. Soni Reason for Consultation: Goals of care History of Present Illness This 81 year old female patient with PMH COPD on home oxygen, pulmonary htn, EF 50%, CAD s/p stenting, and others listed below, presented to the hospital 12 days ago with c/o N/V/D x4 days. She is also experiencing afib with RVR and is now on amiodarone gtt, and developed acute on chronic respiratory failure requiring bipap on/off. She has somewhat improved and is now on 4LNC. She underwent cardioversion this morning which was unsuccessful after three shocks and she remains in afib with RVR. Patient also with PONCE on CKD, but creatinine is improved to 1.5 which is almost baseline. Dr. Hilton saw patient from pulmonary standpoint and discussed her severe pulmonary hypertension is likely from cor pulmonale. Given the severity of her pulmonary hypertension, there is very limited treatment. Patient is markedly SOB with any exertion, but insistent on going home. Palliative care consulted to establish goals of care I met with the patient in room 208, her Omar came in midway through conversation. Patient is awake, alert and oriented x4. Pleasant and talkative, but does appear mildly SOB at rest. Cheeks, nose, and fingertips are dusky. Patient however denies feeling SOB at rest. Patient states she knows there is limited treatment for her condition and recalled that Dr. hilton spent some time discussing prognosis with her and her family. She stated that she felt that the healthcare providers are rather pessimistic but she is not ready to "give up." Patient is adamant about going home although I expressed concern about this considering she is so SOB with any activity. Patient stated she was not willing to go to rehab but did request to speak with supervisor case loading about having home health/visiting nurse. Patient's goal is to "fight till the end." Her is at bedside and believes patient is getting better, he is supportive of her decisions. Difficult to assess their understanding/insight into her illness. Past Medical/Surgical History Medical History: COPD on home oxygen Right sided CHF, EF 50% CAD s/p stenting Htn HLD DM type II Pulmonary htn Social History Smoking Status: Former Smoker History of Alcohol Use: No Drug Use: none Marital Status: Occupation Status: unemployed Review of Systems Constitutional: + weakness (improving) ENT: No trouble swallowing Respiratory: + dyspnea on exertion (much improved), No cough, No wheezing, No shortness of breath Cardiac: + edema (lower extremities, improved), No chest pain Abdomen: No pain, No nausea, No vomiting Female : No problem reported Psychiatric: No depression symptoms, No anxiety Allergies Coded Allergies: Insulin (Verified Adverse Reaction, Unknown, other, 08/31/17) Patient states that she has an insulin allergy that caused cardiac arrest, however she admitted to nursing that she is not allergic to insulin, she just does not want to take it. Medications Current Inpatient Medications Medications (Trade) Dose Ordered Sig/Mayito Route Start Time Stop Time Status Last Admin Dose Admin Atorvastatin Calcium (Lipitor Tab) 80 mg DAILY PO 08/25/17 09:00 09/24/17 08:59 09/05/17 09:16 80 MG Acetaminophen (Tylenol Tab) 650 mg Q4H PRN PO 08/24/17 17:30 09/23/17 17:29 Al Hydrox/Mg Hydrox/Simethicone (Maalox Max Susp) 15 ml Q4H PRN PO 08/24/17 17:30 09/23/17 17:29 Magnesium Hydroxide (Milk Of Magnesia Susp) 30 ml Q12H PRN PO 08/24/17 17:30 09/23/17 17:29 Ondansetron HCl (Zofran Inj) 4 mg Q6H PRN IV 08/24/17 17:30 09/23/17 17:29 08/27/17 14:33 4 MG Morphine Sulfate (MoRPHine SULFATE INJ) 2 mg Q30M PRN IV 08/24/17 17:30 09/07/17 17:29 Polyethylene (Miralax Powder Packet) 17 gm DAILY PRN PO 08/24/17 17:30 09/23/17 17:29 09/05/17 09:29 17 GM Glucose (Glucose 40% Gel) 15-30 GRAMS 15 GRAMS... UD PRN PO 08/24/17 18:45 09/23/17 18:44 Glucose (Glucose Chew Tab) 4-8 Tablets 4 Tabl... UD PRN PO 08/24/17 18:45 09/23/17 18:44 Dextrose (Dextrose 50% 50ML Syringe) 25-50ML OF 50% DW IV FOR... UD PRN IV 08/24/17 18:45 09/23/17 18:44 Glucagon (Glucagon Inj) 1 mg UD PRN SQ 08/24/17 18:45 09/23/17 18:44 Apixaban (Eliquis Tab) 2.5 mg BID PO 08/25/17 19:30 09/24/17 19:29 09/05/17 09:15 2.5 MG Sodium Chloride ([place] Nasal Dora) 1 sprays PRN PRN NA 08/25/17 20:45 09/24/17 20:44 Calcium/Vitamin D (Caltrate Plus Tab) 1 tab BID PO 08/26/17 09:00 09/25/17 08:59 09/05/17 09:17 1 TAB Acetylcysteine (Mucomyst 20% Inh Soln) 5 ml BIDR INH 08/27/17 20:00 09/26/17 19:59 09/05/17 07:08 5 ML Albuterol/ Ipratropium (Duoneb) 3 ml Q4R INH 08/27/17 20:00 09/26/17 19:59 09/05/17 07:07 3 ML Salmeterol Xinafoate/ Fluticasone (Advair Diskus 250/50 Inh) 1 puff BID INH 08/27/17 21:00 09/26/17 20:59 09/05/17 09:17 1 PUFF Tiotropium [place] (Spiriva Handihaler Inhaler) 1 puff QAM INH 08/28/17 09:00 09/27/17 08:59 09/05/17 09:17 1 PUFF Albuterol/ Ipratropium (Duoneb) 3 ml Q2H PRN INH 08/27/17 19:30 09/26/17 19:29 Guaifenesin (Mucinex Contr Rel Tab) 600 mg Q12 PO 08/27/17 21:00 09/26/17 20:59 09/05/17 09:16 600 MG Amiodarone HCL/ Dextrose 200 ml @ 16.7 mls/hr [id number] IV 08/31/17 16:45 09/30/17 16:44 09/05/17 03:31 16.7 MLS/HR Glipizide (Glucotrol Tab) 5 mg QDB PO 09/02/17 07:30 10/02/17 07:29 09/05/17 09:15 5 MG Potassium Chloride (Klor-Con M10) 10 meq BID PO 09/02/17 09:00 10/02/17 08:59 09/05/17 09:16 10 MEQ Prednisone (PredniSONE TAB) 10 mg BID PO 09/02/17 21:00 09/29/17 08:59 09/05/17 09:16 10 MG Metoprolol Tartrate (Lopressor Tab) 50 mg BID PO 09/03/17 09:00 10/03/17 08:59 09/05/17 09:16 50 MG Diltiazem HCl (Cardizem Tab) 60 mg TID PO 09/03/17 07:00 10/03/17 06:59 09/05/17 09:15 60 MG Digoxin (Lanoxin Tab) 0.125 mg DAILY@16 PO 09/03/17 16:00 10/03/17 15:59 09/04/17 16:06 0.125 MG Furosemide (Lasix Tab) 80 mg QAM PO 09/05/17 09:00 10/05/17 08:59 09/05/17 09:16 80 MG Physical Exam Date Time Temp Pulse Resp B/P (MAP) Pulse Ox O2 Delivery O2 Flow Rate FiO2 09/05/17 08:32 92 16 149/68 (95) 95 Nasal Cannula 6 09/05/17 08:27 91 16 168/65 (99) 95 Nasal Cannula 6 09/05/17 08:22 88 16 172/64 (100) 95 Nasal Cannula 6 09/05/17 08:17 93 16 168/56 (93) 96 Nasal Cannula 6 09/05/17 08:12 100 16 178/60 92 Nasal Cannula 6 09/05/17 08:10 100 16 178/69 92 Nasal Cannula 6 09/05/17 08:05 92 16 146/92 91 Nasal Cannula 6 09/05/17 08:00 92 16 159/71 95 Room Air 09/05/17 07:08 84 20 96 Nasal Cannula 4.0 09/05/17 04:00 Nasal Cannula 4.0 Humidified Oxygen 09/05/17 03:40 37.1 82 20 109/57 (74) 93 Nasal Cannula 4.0 09/05/17 03:25 76 22 97 Nasal Cannula 4.0 09/05/17 00:00 36.7 84 19 95/62 (73) 92 Nasal Cannula 4.0 09/05/17 00:00 Nasal Cannula 4.0 Humidified Oxygen 09/04/17 23:04 89 18 94 Nasal Cannula 4.0 09/04/17 20:00 Nasal Cannula 4.0 Humidified Oxygen 09/04/17 19:29 36.6 97 20 120/64 (82) 96 Nasal Cannula 4.0 Humidified Oxygen 09/04/17 19:15 83 20 93 Nasal Cannula 4.0 09/04/17 16:19 Nasal Cannula 4.0 09/04/17 16:06 100 09/04/17 15:20 36.4 98 24 108/77 (87) 92 Nasal Cannula 4.0 09/04/17 15:06 96 18 89 Nasal Cannula 4.0 09/04/17 12:00 Nasal Cannula 4.0 09/04/17 11:55 36.5 100 18 90/63 (72) 96 09/04/17 11:08 83 18 94 Nasal Cannula 4.0 General Appearance: + obese ENT: hearing grossly normal Neck: supple, no JVD Respiratory: no respiratory distress, no accessory muscle use, + decreased breath sounds, + crackles (LLL) Cardiovascular: + tachycardia, + irregularly irregular, + normal peripheral pulses, + pertinent finding (non-pitting edema) Abdomen: normal bowel sounds, non tender, soft Neurologic/Psychiatric: alert, normal mood/affect, oriented x 3 Skin: + pertinent finding (dusky cheeks and fingertips) Laboratory Results Last 24 Hours Test 09/04/17 11:20 09/04/17 11:23 09/04/17 16:21 09/04/17 20:04 Bedside Glucose 399 mg/dl 298 mg/dl 335 mg/dl 239 mg/dl Test 09/05/17 05:42 09/05/17 06:41 09/05/17 08:09 09/05/17 08:51 White Blood Count 14.87 K/uL Red Blood Count 4.73 M/uL Hemoglobin 14.4 g/dL Hematocrit 42.9 % Mean Corpuscular Volume 90.7 fL Mean Corpuscular Hemoglobin 30.4 pg Mean Corpuscular Hemoglobin Concent 33.6 g/dl RDW Standard Deviation 51.4 fL RDW Coefficient of Variation 15.4 % Platelet Count 158 K/uL Mean Platelet Volume 11.0 fL Sodium Level 131 mmol/L Potassium Level 3.7 mmol/L Chloride Level 88 mmol/L Carbon Dioxide Level 34 mmol/L Anion Gap 10.0 mmol/L Blood Urea Nitrogen 75 mg/dl Creatinine 1.58 mg/dl Est Creatinine Clear Calc Drug Dose 28.3 ml/min Estimated GFR () 34.9 Estimated GFR (Non- 30.2 BUN/Creatinine Ratio 47.3 Random Glucose 235 mg/dl Calcium Level 10.0 mg/dl Phosphorus Level 2.6 mg/dl Magnesium Level 1.9 mg/dl Bedside Glucose 223 mg/dl 249 mg/dl Assessment & Plan Problem list: [place]STIAN[place]/SOB Afib with RVR Severe pulmonary htn Acute on chronic respiratory failure with hx COPD- home oxygen dependent PONCE on CKD Goals of care Palliative care recs: Discussed with patient and , Omar. -Patient with advanced COPD, oxygen dependence, acute on chronic respiratory failure, afib with RVR unresponsive to cardioversion this morning. Uncertain of prognosis and denies any rehab after hospitalization. She appears dusky and gets quite SOB with any activity per nursing, although patient denies this. -Patient has limited insight into her medical conditions. She does recall Dr. Hilton having a discussion with her, , and son about prognosis with the cor pulmonale, pulmonary hypertension, afib, etc. She referred to Dr. Wang as "Dr. Flores," and said that he did convey a poor prognosis, but she would "fight him till the end." -Patient is adamant that she is going home, but she now is requesting to speak with case management about having some home health/visiting home nurse. I will speak with supervisor case loading. Patient lives at home with her , Omar, who helps her at home. -Did not specifically address code status, but I will do so as I continue to follow. If any family meetings occur, please contact me to be present. [phone]. Thank you kindly for this consult. I will follow as needed. Total time spent 50 minutes with >50% of time spent at bedside with patient and counseling/discussing goals of care.
--- NOTE | 2017-09-05 14:23 | Progress Note ---
Subjective Date of Service: Sep 05, 2017. Subjective Pt evaluation today including: conversation w/ patient, physical exam, lab review, review of studies, conversation w/ storage consultant, review of inpatient medication list Pain: denies pain PO Intake: poor appetite Voiding: no voiding problems patient had unsuccessful cardioversion this morning, three attempts that failed her breathing is at baseline on 4L she understands that there is no treatment for her severe pulmonary hypertension urinating well, no BM, getting up to use bedside commode but limited mobility otherwise discussed going to rehab, she refuses the idea discussed the realities of going home with her bed on second floor, can't get up steps committed to going home Problem List Medical Problems: (1) Dehydration Status: Acute (2) Elevated troponin Status: Acute (3) Left sided abdominal pain Status: Acute Review of Systems Constitutional: + weakness, + fatigue Respiratory: + cough, + dyspnea on exertion Cardiac: + edema All Other Systems: Reviewed and Negative Medications Current Inpatient Medications Medications (Trade) Dose Ordered Sig/Mayito Route Start Time Stop Time Status Last Admin Dose Admin Atorvastatin Calcium (Lipitor Tab) 80 mg DAILY PO 08/25/17 09:00 09/24/17 08:59 09/05/17 09:16 80 MG Acetaminophen (Tylenol Tab) 650 mg Q4H PRN PO 08/24/17 17:30 09/23/17 17:29 Al Hydrox/Mg Hydrox/Simethicone (Maalox Max Susp) 15 ml Q4H PRN PO 08/24/17 17:30 09/23/17 17:29 Magnesium Hydroxide (Milk Of Magnesia Susp) 30 ml Q12H PRN PO 08/24/17 17:30 09/23/17 17:29 Ondansetron HCl (Zofran Inj) 4 mg Q6H PRN IV 08/24/17 17:30 09/23/17 17:29 08/27/17 14:33 4 MG Morphine Sulfate (MoRPHine SULFATE INJ) 2 mg Q30M PRN IV 08/24/17 17:30 09/07/17 17:29 Polyethylene (Miralax Powder Packet) 17 gm DAILY PRN PO 08/24/17 17:30 09/23/17 17:29 09/05/17 09:29 17 GM Glucose (Glucose 40% Gel) 15-30 GRAMS 15 GRAMS... UD PRN PO 08/24/17 18:45 09/23/17 18:44 Glucose (Glucose Chew Tab) 4-8 Tablets 4 Tabl... UD PRN PO 08/24/17 18:45 09/23/17 18:44 Dextrose (Dextrose 50% 50ML Syringe) 25-50ML OF 50% DW IV FOR... UD PRN IV 08/24/17 18:45 09/23/17 18:44 Glucagon (Glucagon Inj) 1 mg UD PRN SQ 08/24/17 18:45 09/23/17 18:44 Apixaban (Eliquis Tab) 2.5 mg BID PO 08/25/17 19:30 09/24/17 19:29 09/05/17 09:15 2.5 MG Sodium Chloride ([place] Nasal [place]) 1 sprays PRN PRN NA 08/25/17 20:45 09/24/17 20:44 Calcium/Vitamin D (Caltrate Plus Tab) 1 tab BID PO 08/26/17 09:00 09/25/17 08:59 09/05/17 09:17 1 TAB Acetylcysteine (Mucomyst 20% Inh Soln) 5 ml BIDR INH 08/27/17 20:00 09/26/17 19:59 09/05/17 07:08 5 ML Albuterol/ Ipratropium (Duoneb) 3 ml Q4R INH 08/27/17 20:00 09/26/17 19:59 09/05/17 11:09 3 ML Salmeterol Xinafoate/ Fluticasone (Advair Diskus 250/50 Inh) 1 puff BID INH 08/27/17 21:00 09/26/17 20:59 09/05/17 09:17 1 PUFF Tiotropium [place] (Spiriva Handihaler Inhaler) 1 puff QAM INH 08/28/17 09:00 09/27/17 08:59 09/05/17 09:17 1 PUFF Albuterol/ Ipratropium (Duoneb) 3 ml Q2H PRN INH 08/27/17 19:30 09/26/17 19:29 Guaifenesin (Mucinex Contr Rel Tab) 600 mg Q12 PO 08/27/17 21:00 09/26/17 20:59 09/05/17 09:16 600 MG Amiodarone HCL/ Dextrose 200 ml @ 16.7 mls/hr [id number] IV 08/31/17 16:45 09/30/17 16:44 09/05/17 03:31 16.7 MLS/HR Glipizide (Glucotrol Tab) 5 mg QDB PO 09/02/17 07:30 10/02/17 07:29 09/05/17 09:15 5 MG Potassium Chloride (Klor-Con M10) 10 meq BID PO 09/02/17 09:00 10/02/17 08:59 09/05/17 09:16 10 MEQ Prednisone (PredniSONE TAB) 10 mg BID PO 09/02/17 21:00 09/29/17 08:59 09/05/17 09:16 10 MG Metoprolol Tartrate (Lopressor Tab) 50 mg BID PO 09/03/17 09:00 10/03/17 08:59 09/05/17 09:16 50 MG Diltiazem HCl (Cardizem Tab) 60 mg TID PO 09/03/17 07:00 10/03/17 06:59 09/05/17 13:53 60 MG Digoxin (Lanoxin Tab) 0.125 mg DAILY@16 PO 09/03/17 16:00 10/03/17 15:59 09/04/17 16:06 0.125 MG Furosemide (Lasix Tab) 80 mg QAM PO 09/05/17 09:00 10/05/17 08:59 09/05/17 09:16 80 MG Objective Vital Signs Date Time Temp Pulse Resp B/P (MAP) Pulse Ox O2 Delivery O2 Flow Rate FiO2 09/05/17 12:23 36.7 93 27 103/63 (76) 93 Room Air 09/05/17 12:00 93 Nasal Cannula 4.0 Humidified Oxygen 09/05/17 11:09 83 20 94 Nasal Cannula 4.0 09/05/17 08:45 36.6 93 19 111/65 (80) 93 Nasal Cannula 4.0 09/05/17 08:32 92 16 149/68 (95) 95 Nasal Cannula 6 09/05/17 08:27 91 16 168/65 (99) 95 Nasal Cannula 6 09/05/17 08:22 88 16 172/64 (100) 95 Nasal Cannula 6 09/05/17 08:17 93 16 168/56 (93) 96 Nasal Cannula 6 09/05/17 08:12 100 16 178/60 92 Nasal Cannula 6 09/05/17 08:10 100 16 178/69 92 Nasal Cannula 6 09/05/17 08:05 92 16 146/92 91 Nasal Cannula 6 09/05/17 08:00 92 16 159/71 95 Room Air 09/05/17 08:00 93 Nasal Cannula 4.0 Humidified Oxygen 09/05/17 07:08 84 20 96 Nasal Cannula 4.0 09/05/17 04:00 Nasal Cannula 4.0 Humidified Oxygen 09/05/17 03:40 37.1 82 20 109/57 (74) 93 Nasal Cannula 4.0 09/05/17 03:25 76 22 97 Nasal Cannula 4.0 09/05/17 00:00 36.7 84 19 95/62 (73) 92 Nasal Cannula 4.0 09/05/17 00:00 Nasal Cannula 4.0 Humidified Oxygen 09/04/17 23:04 89 18 94 Nasal Cannula 4.0 09/04/17 20:00 Nasal Cannula 4.0 Humidified Oxygen 09/04/17 19:29 36.6 97 20 120/64 (82) 96 Nasal Cannula 4.0 Humidified Oxygen 09/04/17 19:15 83 20 93 Nasal Cannula 4.0 09/04/17 16:19 Nasal Cannula 4.0 09/04/17 16:06 100 09/04/17 15:20 36.4 98 24 108/77 (87) 92 Nasal Cannula 4.0 09/04/17 15:06 96 18 89 Nasal Cannula 4.0 Physical Exam General Appearance: WD/WN, no apparent distress Eyes: normal inspection, EOMI, sclerae normal ENT: normal ENT inspection, hearing grossly normal, pharynx normal Neck: supple, no adenopathy, no JVD, trachea midline Respiratory/Chest: chest non-tender, lungs clear, no respiratory distress, no accessory muscle use, + decreased breath sounds Cardiovascular: no edema, no gallop, no JVD, no murmur, + irregularly irregular Abdomen: normal bowel sounds, non tender, soft, no organomegaly Extremities: normal range of motion, non-tender, normal inspection, no calf tenderness, pelvis stable Neurologic/Psychiatric: trust and estates attorney II-XII nml as tested, alert, normal mood/affect, oriented x 3, + motor weakness Skin: normal color, warm/dry, no rash Laboratory Results Last 24 Hours Test 09/04/17 16:21 09/04/17 20:04 09/05/17 05:42 09/05/17 06:41 Bedside Glucose 335 mg/dl 239 mg/dl 223 mg/dl White Blood Count 14.87 K/uL Red Blood Count 4.73 M/uL Hemoglobin 14.4 g/dL Hematocrit 42.9 % Mean Corpuscular Volume 90.7 fL Mean Corpuscular Hemoglobin 30.4 pg Mean Corpuscular Hemoglobin Concent 33.6 g/dl RDW Standard Deviation 51.4 fL RDW Coefficient of Variation 15.4 % Platelet Count 158 K/uL Mean Platelet Volume 11.0 fL Sodium Level 131 mmol/L Potassium Level 3.7 mmol/L Chloride Level 88 mmol/L Carbon Dioxide Level 34 mmol/L Anion Gap 10.0 mmol/L Blood Urea Nitrogen 75 mg/dl Creatinine 1.58 mg/dl Est Creatinine Clear Calc Drug Dose 28.3 ml/min Estimated GFR () 34.9 Estimated GFR (Non- 30.2 BUN/Creatinine Ratio 47.3 Random Glucose 235 mg/dl Calcium Level 10.0 mg/dl Phosphorus Level 2.6 mg/dl Magnesium Level 1.9 mg/dl Test 09/05/17 08:51 09/05/17 10:38 09/05/17 11:35 Bedside Glucose 249 mg/dl 274 mg/dl Digoxin Level 1.1 ng/ml Assessment and Plan 81 y/o F admitted on August 24, 2017, associated with nausea, vomiting and diarrhea x 4 days, and A. fib with rapid ventricular response, now is on amiodarone drip, she developed acute on chronic respiratory failure required BiPAP, has been off BiPAP and back to nasal cannula 4 L/min, which is her baseline , improving - Afib with RVR: failed cardioversion on 09/05 continue metoprolol, cardizem and amiodarone cardiology following anticoagulated on Eliquis - PONCE: Cr trended down to 1.5 today, near baseline adequate UO, continue Lasix 80mg BID volume status is acceptable - Chronic hypoxic respiratory failure: wears 4-5L at all times due to severe pulmonary hypertension, no good treatment Dr. Davila has discussed poor prognosis with patient and her family not ready to commit to hospice yet, remains level 1 continue oxygen supplementation - DM type II: sugars in 200's on Glipizide, Novolog SS, diabetic diet monitor for hypoglycemia DVT prophylaxis, Kade not ready to go home today, will re-assess with therapy, trying to convince patient about going to rehab Continued [facility] [place] stay due to: multiple IV medications needed Discharge planning: uncertain
--- NOTE | 2017-09-05 14:47 | Nephrology Progress Note ---
Nephrology Progress Note Date of Service Sep 05, 2017. Chief Complaint PONCE Subjective Mrs. Boswell was seen & evaluated in the ICU this morning. She continues to have CHRISTIANSON. She reports that cardioversion was attempted this morning but was unsuccessful. She is anxious to return home. Review of Systems Constitutional: No fever Cardiovascular: No chest pain Respiratory: No dyspnea at rest Abdomen: No pain, No nausea, No vomiting Extremities: + leg edema A complete review of systems was performed. Pertinent positives are noted above. All other systems are negative. Vital Signs Last 8 Hrs Date Time Temp Pulse Resp B/P (MAP) Pulse Ox O2 Delivery O2 Flow Rate FiO2 09/05/17 12:23 36.7 93 27 103/63 (76) 93 Room Air 09/05/17 12:00 93 Nasal Cannula 4.0 Humidified Oxygen 09/05/17 11:09 83 20 94 Nasal Cannula 4.0 09/05/17 08:45 36.6 93 19 111/65 (80) 93 Nasal Cannula 4.0 09/05/17 08:32 92 16 149/68 (95) 95 Nasal Cannula 6 09/05/17 08:27 91 16 168/65 (99) 95 Nasal Cannula 6 09/05/17 08:22 88 16 172/64 (100) 95 Nasal Cannula 6 09/05/17 08:17 93 16 168/56 (93) 96 Nasal Cannula 6 09/05/17 08:12 100 16 178/60 92 Nasal Cannula 6 09/05/17 08:10 100 16 178/69 92 Nasal Cannula 6 09/05/17 08:05 92 16 146/92 91 Nasal Cannula 6 09/05/17 08:00 92 16 159/71 95 Room Air 09/05/17 08:00 93 Nasal Cannula 4.0 Humidified Oxygen 09/05/17 07:08 84 20 96 Nasal Cannula 4.0 Last Recorded Weight Weight (Kilograms): 84.600 Physical Exam General Appearance: no apparent distress Head: normocephalic, atraumatic Eyes: PERRL, EOMI Neck: no adenopathy Respiratory/Chest: + rales, + wheezing Cardiovascular: + irregularly irregular Abdomen/GI: normal bowel sounds, non tender, soft Extremities/Musculoskelatal: + swelling (1+ pretibial pitting edema) Neurologic/Psych: alert, oriented x 3 Family History No pertinent family history Social History Smokeless Tobacco Use: No Drug Use: none Marital Status: Occupation: unemployed Laboratory Results Past 24 Hours 09/05/17 05:42 09/05/17 05:42 Test 09/04/17 16:21 09/04/17 20:04 09/05/17 05:42 09/05/17 06:41 Bedside Glucose 335 mg/dl (70-90) 239 mg/dl (70-90) 223 mg/dl (70-90) Red Blood Count 4.73 M/uL (4.2-5.4) Mean Corpuscular Volume 90.7 fL (80-100) Mean Corpuscular Hemoglobin 30.4 pg (25-34) Mean Corpuscular Hemoglobin Concent 33.6 g/dl (32-36) RDW Standard Deviation 51.4 fL (36.4-46.3) RDW Coefficient of Variation 15.4 % (11.5-14.5) Mean Platelet Volume 11.0 fL (7.4-10.4) Anion Gap 10.0 mmol/L (3-11) Est Creatinine Clear Calc Drug Dose 28.3 ml/min Estimated GFR () 34.9 Estimated GFR (Non- 30.2 BUN/Creatinine Ratio 47.3 (10-20) Calcium Level 10.0 mg/dl (8.5-10.1) Phosphorus Level 2.6 mg/dl (2.5-4.9) Magnesium Level 1.9 mg/dl (1.8-2.4) Test 09/05/17 08:51 09/05/17 10:38 09/05/17 11:35 Bedside Glucose 249 mg/dl (70-90) 274 mg/dl (70-90) Digoxin Level 1.1 ng/ml (0.8-2.0) Allergies Coded Allergies: Insulin (Verified Adverse Reaction, Unknown, other, 08/31/17) Patient states that she has an insulin allergy that caused cardiac arrest, however she admitted to nursing that she is not allergic to insulin, she just does not want to take it. Medications Current Inpatient Medications Medications (Trade) Dose Ordered Sig/Mayito Route Start Time Stop Time Status Last Admin Dose Admin Atorvastatin Calcium (Lipitor Tab) 80 mg DAILY PO 08/25/17 09:00 09/24/17 08:59 09/05/17 09:16 80 MG Acetaminophen (Tylenol Tab) 650 mg Q4H PRN PO 08/24/17 17:30 09/23/17 17:29 Al Hydrox/Mg Hydrox/Simethicone (Maalox Max Susp) 15 ml Q4H PRN PO 08/24/17 17:30 09/23/17 17:29 Magnesium Hydroxide (Milk Of Magnesia Susp) 30 ml Q12H PRN PO 08/24/17 17:30 09/23/17 17:29 Ondansetron HCl (Zofran Inj) 4 mg Q6H PRN IV 08/24/17 17:30 09/23/17 17:29 08/27/17 14:33 4 MG Morphine Sulfate (MoRPHine SULFATE INJ) 2 mg Q30M PRN IV 08/24/17 17:30 09/07/17 17:29 Polyethylene (Miralax Powder Packet) 17 gm DAILY PRN PO 08/24/17 17:30 09/23/17 17:29 09/05/17 09:29 17 GM Glucose (Glucose 40% Gel) 15-30 GRAMS 15 GRAMS... UD PRN PO 08/24/17 18:45 09/23/17 18:44 Glucose (Glucose Chew Tab) 4-8 Tablets 4 Tabl... UD PRN PO 08/24/17 18:45 09/23/17 18:44 Dextrose (Dextrose 50% 50ML Syringe) 25-50ML OF 50% DW IV FOR... UD PRN IV 08/24/17 18:45 09/23/17 18:44 Glucagon (Glucagon Inj) 1 mg UD PRN SQ 08/24/17 18:45 09/23/17 18:44 Apixaban (Eliquis Tab) 2.5 mg BID PO 08/25/17 19:30 09/24/17 19:29 09/05/17 09:15 2.5 MG Sodium Chloride ([place] Nasal [place]) 1 sprays PRN PRN NA 08/25/17 20:45 09/24/17 20:44 Calcium/Vitamin D (Caltrate Plus Tab) 1 tab BID PO 08/26/17 09:00 09/25/17 08:59 09/05/17 09:17 1 TAB Acetylcysteine (Mucomyst 20% Inh Soln) 5 ml BIDR INH 08/27/17 20:00 09/26/17 19:59 09/05/17 07:08 5 ML Albuterol/ Ipratropium (Duoneb) 3 ml Q4R INH 08/27/17 20:00 09/26/17 19:59 09/05/17 11:09 3 ML Salmeterol Xinafoate/ Fluticasone (Advair Diskus 250/50 Inh) 1 puff BID INH 08/27/17 21:00 09/26/17 20:59 09/05/17 09:17 1 PUFF Tiotropium [place] (Spiriva Handihaler Inhaler) 1 puff QAM INH 08/28/17 09:00 09/27/17 08:59 09/05/17 09:17 1 PUFF Albuterol/ Ipratropium (Duoneb) 3 ml Q2H PRN INH 08/27/17 19:30 09/26/17 19:29 Guaifenesin (Mucinex Contr Rel Tab) 600 mg Q12 PO 08/27/17 21:00 09/26/17 20:59 09/05/17 09:16 600 MG Amiodarone HCL/ Dextrose 200 ml @ 16.7 mls/hr [id number] IV 08/31/17 16:45 09/30/17 16:44 09/05/17 03:31 16.7 MLS/HR Glipizide (Glucotrol Tab) 5 mg QDB PO 09/02/17 07:30 10/02/17 07:29 09/05/17 09:15 5 MG Potassium Chloride (Klor-Con M10) 10 meq BID PO 09/02/17 09:00 10/02/17 08:59 09/05/17 09:16 10 MEQ Prednisone (PredniSONE TAB) 10 mg BID PO 09/02/17 21:00 09/29/17 08:59 09/05/17 09:16 10 MG Metoprolol Tartrate (Lopressor Tab) 50 mg BID PO 09/03/17 09:00 10/03/17 08:59 09/05/17 09:16 50 MG Diltiazem HCl (Cardizem Tab) 60 mg TID PO 09/03/17 07:00 10/03/17 06:59 09/05/17 13:53 60 MG Digoxin (Lanoxin Tab) 0.125 mg DAILY@16 PO 09/03/17 16:00 10/03/17 15:59 09/04/17 16:06 0.125 MG Furosemide (Lasix Tab) 80 mg QAM PO 09/05/17 09:00 10/05/17 08:59 09/05/17 09:16 80 MG Impression (1) Acute renal insufficiency (2) Moderate to severe pulmonary hypertension (3) Atrial fibrillation with RVR (4) HTN (hypertension) (5) DM (diabetes mellitus) (6) Cor pulmonale Arlen Boswell is an 81-year-old female with acute kidney injury ( baseline creatinine 1.0) and atrial fibrillation w/ RVR. Medical history is notable for diabetes mellitus II, chronic diastolic CHF and right heart failure with severe pulmonary hypertension. PONCE is consistent with prerenal azotemia with possible ATN. Creatinine improved slightly in the past 24 hours. Urine output is appropriate. Renal US was normal. UA is bland. Metabolic profile is otherwise normal. Arlen has atrial fibrillation. She remains on amiodarone gtt. Recommendations -- Continue Furosemide 80 mg po daily -- Recommend LE compression stockings when OOB -- Monitor I/O's -- Repeat metabolic profile tomorrow AM -- Maintain 1.5 L daily fluid restriction for hyponatremia -- Consider palliative care consultation due to advanced pulmonary hypertension. Focus of care will remain management of volume status and improving dyspnea
[2017-09-05] MEDS: DIGOXIN 0.125 MG TAB PO SCH (16:32)
[2017-09-06] VITALS (12 sets, daily range): BP systolic 108–127; BP diastolic 62–77; PULSE 75–100; TEMP 36.5–36.8; O2SAT 91–97
[2017-09-06] MEDS: ALBUT/IPRATROP 3MG/0.5MG NEB 3 ML VIAL INH SCH ×5 (03:56→19:01)
[2017-09-06] MEDS: AMIODARONE / D5W 200 ML IV SCH (04:07)
[2017-09-06 06:40] LABS: CALCIUM 9.3 mg/dl (8.5-10.1); CREATININE 1.59 mg/dl (0.60-1.20); POTASSIUM 3.6 mmol/L (3.5-5.1)
[2017-09-06] MEDS: ACETYLCYSTEINE 20% INHAL SOLN ***DISPENSED BY RESP. INH SCH ×2 (06:57→19:01)
[2017-09-06] MEDS: FUROSEMIDE 80 MG TAB PO SCH (08:01)
[2017-09-06] MEDS: GUAIFENESIN 600 MG TABCR PO SCH ×2 (08:01→20:42)
[2017-09-06] MEDS: POTASSIUM CHLORIDE 10 MEQ TABCR PO SCH ×2 (08:01→20:11)
[2017-09-06] MEDS: ATORVASTATIN 40 MG TAB PO SCH (08:01)
[2017-09-06] MEDS: POLYETHYLENE (MIRALAX) 17 GM PACK PO PRN (08:02)
[2017-09-06] MEDS: DILTIAZEM HCL 60 MG TAB PO SCH ×3 (08:02→20:10)
[2017-09-06] MEDS: APIXABAN 2.5 MG TAB PO SCH ×2 (08:02→20:11)
[2017-09-06] MEDS: CALCIUM 600MG + VIT D 400 IU TAB PO SCH ×2 (08:02→20:10)
[2017-09-06] MEDS: FLUTICASONE/SALMETEROL 250/50 (ADVAIR) 14 PUFF/1 INHALER INH SCH ×2 (08:02→20:10)
[2017-09-06] MEDS: METOPROLOL TARTRATE 50 MG TAB PO SCH ×2 (08:05→20:11)
[2017-09-06] MEDS: TIOTROPIUM BROMIDE 5 PUFF/90 MCG INH INH SCH (08:27)
--- NOTE | 2017-09-06 09:24 | Cardiology Follow-Up ---
Subjective Date of Service: Sep 06, 2017. Pt evaluation today including: conversation w/ patient, physical exam, lab review, review of studies, review of inpatient medication list History of Present Illness This is an 81-year-old woman who has a history of diabetes mellitus, hypertension, coronary artery disease (identified at catheterization on June 25, 2014) as well as severe pulmonary hypertension. She has had stent placement at on two occasions by her recollection, not recently. She presents now with vomiting for 4 days, lower abdominal discomfort as well as diarrhea. She was not having chest symptoms, specifically not having palpitations, chest discomfort, etc. She is chronically on oxygen on arrival in the emergency room she was noted to be in atrial fibrillation with a rapid ventricular response. She was started on intravenous diltiazem and heparin. By morning she converted back to sinus rhythm with premature atrial beats. On further discussion with her she uses a pulse oximeter at home, she notices from time to time that her heart rate is elevated (in the 115 bpm range) whereas most the time it is in the 70 bpm range. She is unaware of palpitations but has not been in the hospital either when we have documented atrial fibrillation. I suspect she has this at home and that this is not a new finding. She converted back to atrial fibrillation and we have had a lot of difficulty controlling her atrial arrhythmia, ultimately we titrated her oral medications to diltiazem 360 mg daily and metoprolol succinate 100 mg daily. Her heart rate has remained elevated on this regimen, I therefore added amiodarone intravenously in hopes of converting her rhythm. She remained in atrial fibrillation however. We scheduled cardioversion for the morning of 09/05/2017, surprisingly we were unable to convert her rhythm with 3 shocks. Today she feels well, no SOB at rest. She is in a chair at bedside. Social History Smoking Status: Former Smoker History of Alcohol Use: No Review of Systems Respiratory: + dyspnea on exertion (much improved), No cough, No wheezing, No shortness of breath Cardiac: + edema (lower extremities, improved), No chest pain Medications Cardiovascular: Item Value Date Time Furosemide 80 mg 09/05/17 0900 (Lasix Tab) QAM/PO 09/06/17 0801 Digoxin 0.125 mg 09/03/17 1600 (Lanoxin Tab) DAILY@16/PO 09/05/17 1632 Metoprolol 50 mg 09/03/17 0900 Tartrate BID/PO 09/06/17 0805 (Lopressor Tab) Diltiazem HCl 60 mg 09/03/17 0700 (Cardizem Tab) TID/PO 09/06/17 0802 Amiodarone HCL/ 200 ml @ 16.7 mls/hr 08/31/17 1645 Dextrose .[id number]/IV 09/06/17 0407 Apixaban 2.5 mg 08/25/17 1930 (Eliquis Tab) BID/PO 09/06/17 0802 Atorvastatin 80 mg 08/25/17 0900 Calcium DAILY/PO 09/06/17 0801 (Lipitor Tab) Objective Vital Signs Past 12 Hours Date Time Temp Pulse Resp B/P (MAP) Pulse Ox O2 Delivery O2 Flow Rate FiO2 09/06/17 08:00 36.8 90 22 118/73 (88) 91 Room Air 09/06/17 08:00 94 Nasal Cannula 4.0 Humidified Oxygen 09/06/17 06:59 87 20 91 Nasal Cannula 4.0 09/06/17 04:09 Nasal Cannula Humidified Oxygen 09/06/17 04:01 36.6 76 19 120/74 (89) 91 Nasal Cannula 4.0 09/06/17 00:01 Nasal Cannula Humidified Oxygen 09/05/17 23:10 36.8 91 18 102/63 (76) 90 Nasal Cannula 4.0 09/05/17 23:00 88 20 96 Nasal Cannula 4.0 Last Recorded Weight-Kilograms: 84.600 Physical Exam Constitutional: General Apperance: heathly-appearing, overweight Level of Distress: NAD Ambulation: limited ambulation Lungs: Respiratory effort: no dyspnea Auscultation: no wheezing, decreased breath sounds Cardiovascular: Heart Auscultation: no murmurs, no rubs, no gallops, tachycardia, irregular rate rhythm Peripheral Pulses: Bruits: none appreciated Extremities: edema (+2 bilateral) Data Laboratory Results: Last 24 Hours Test 09/05/17 10:38 09/05/17 11:35 09/05/17 16:33 09/05/17 21:21 Digoxin Level 1.1 ng/ml Bedside Glucose 274 mg/dl 266 mg/dl 278 mg/dl Test 09/06/17 05:38 3/20/18 06:20 Sodium Level 130 mmol/L Potassium Level 3.6 mmol/L Chloride Level 89 mmol/L Carbon Dioxide Level 32 mmol/L Anion Gap 10.0 mmol/L Blood Urea Nitrogen 72 mg/dl Creatinine 1.59 mg/dl Est Creatinine Clear Calc Drug Dose 28.1 ml/min Estimated GFR () 34.7 Estimated GFR (Non- 29.9 BUN/Creatinine Ratio 45.2 Random Glucose 239 mg/dl Calcium Level 9.3 mg/dl Bedside Glucose 250 mg/dl Telemetry reviewed: AF, rate better over past several days. Assessment and Plan 1. Atrial flutter/fibrillation: Her presentation atrial flutter is a new diagnosis however I suspect she has had it before as noted in the HPI. She arrived in atrial fibrillation and was placed on anticoagulation when she was admitted, she had converted to sinus rhythm but now is back in atrial fibrillation. had hoped that amiodarone would convert her rhythm, but that did not after several days of intravenous amiodarone. Her heart rate was fast and her blood pressure was borderline, however both of these things have improved on continued medical therapy. Yesterday her rhythm failed to convert with 3 shocks. There are other methods which could be used, however she is doing better on her current meds and I would continue them, including amiodarone , and she may convert on her own. I will change her back to long acting medications tomorrow. 2. Abnormal cardiac enzymes: She had low-grade abnormal cardiac enzymes on admission but I think this is consistent with demand ischemia from her known coronary artery disease and her rapid heart rate. 3. Coronary disease: She does not have symptoms of myocardial ischemia, but she did not in the past either. She does not have much to suggest active ischemia on her electrocardiogram and her enzymes are more in keeping with demand ischemia. I would not pursue further evaluation at this time. I do think we should get her heart rate under better control however with her history of coronary disease. 4. Pulmonary hypertension: She has a history of pulmonary hypertension, she has severe pulmonary hypertension and tricuspid regurgitation on her current echo but this is similar to before. There is probably little that can be done with this but no doubt it contributes to her edema. 5. Edema: She still has peripheral edema, her weight is approaching her admission weight. Thank you for allowing me to participate in her care.
--- NOTE | 2017-09-06 10:48 | Nephrology Progress Note ---
Nephrology Progress Note Date of Service Sep 06, 2017. Chief Complaint PONCE Subjective Mrs. Boswell was seen & examined in her hospital room this morning. She is wearing her BRANDON hose. She reports that she is comfortable with her breathing while at rest. She voices no new medical concerns. Review of Systems Constitutional: No fever Cardiovascular: No chest pain Respiratory: + dyspnea on exertion, No dyspnea at rest Abdomen: No pain, No nausea, No vomiting Extremities: + leg edema A complete review of systems was performed. Pertinent positives are noted above. All other systems are negative. Vital Signs Last 8 Hrs Date Time Temp Pulse Resp B/P (MAP) Pulse Ox O2 Delivery O2 Flow Rate FiO2 09/06/17 10:36 36.8 90 22 91 4.0 09/06/17 08:00 36.8 90 22 118/73 (88) 91 Room Air 09/06/17 08:00 94 Nasal Cannula 4.0 Humidified Oxygen 09/06/17 06:59 87 20 91 Nasal Cannula 4.0 09/06/17 04:09 Nasal Cannula Humidified Oxygen 09/06/17 04:01 36.6 76 19 120/74 (89) 91 Nasal Cannula 4.0 Last Recorded Weight Weight (Kilograms): 84.600 Physical Exam General Appearance: no apparent distress Head: normocephalic, atraumatic Eyes: PERRL, EOMI Neck: no adenopathy Respiratory/Chest: + rales Cardiovascular: + irregularly irregular Abdomen/GI: normal bowel sounds, non tender, soft Extremities/Musculoskelatal: + swelling (1+ pretibial pitting edema) Neurologic/Psych: alert, oriented x 3 Family History No pertinent family history Social History Smokeless Tobacco Use: No Drug Use: none Marital Status: Occupation: unemployed Laboratory Results Past 24 Hours 09/06/17 05:38 Test 09/05/17 11:35 09/05/17 16:33 09/05/17 21:21 09/06/17 05:38 Bedside Glucose 274 mg/dl (70-90) 266 mg/dl (70-90) 278 mg/dl (70-90) Anion Gap 10.0 mmol/L (3-11) Est Creatinine Clear Calc Drug Dose 28.1 ml/min Estimated GFR () 34.7 Estimated GFR (Non- 29.9 BUN/Creatinine Ratio 45.2 (10-20) Calcium Level 9.3 mg/dl (8.5-10.1) Test 09/06/17 06:20 Bedside Glucose 250 mg/dl (70-90) Allergies Coded Allergies: Insulin (Verified Adverse Reaction, Unknown, other, 08/31/17) Patient states that she has an insulin allergy that caused cardiac arrest, however she admitted to nursing that she is not allergic to insulin, she just does not want to take it. Medications Current Inpatient Medications Medications (Trade) Dose Ordered Sig/Mayito Route Start Time Stop Time Status Last Admin Dose Admin Atorvastatin Calcium (Lipitor Tab) 80 mg DAILY PO 08/25/17 09:00 09/24/17 08:59 09/06/17 08:01 80 MG Acetaminophen (Tylenol Tab) 650 mg Q4H PRN PO 08/24/17 17:30 09/23/17 17:29 Al Hydrox/Mg Hydrox/Simethicone (Maalox Max Susp) 15 ml Q4H PRN PO 08/24/17 17:30 09/23/17 17:29 Magnesium Hydroxide (Milk Of Magnesia Susp) 30 ml Q12H PRN PO 08/24/17 17:30 09/23/17 17:29 Ondansetron HCl (Zofran Inj) 4 mg Q6H PRN IV 08/24/17 17:30 09/23/17 17:29 08/27/17 14:33 4 MG Morphine Sulfate (MoRPHine SULFATE INJ) 2 mg Q30M PRN IV 08/24/17 17:30 09/07/17 17:29 Polyethylene (Miralax Powder Packet) 17 gm DAILY PRN PO 08/24/17 17:30 09/23/17 17:29 09/06/17 08:02 17 GM Glucose (Glucose 40% Gel) 15-30 GRAMS 15 GRAMS... UD PRN PO 08/24/17 18:45 09/23/17 18:44 Glucose (Glucose Chew Tab) 4-8 Tablets 4 Tabl... UD PRN PO 08/24/17 18:45 09/23/17 18:44 Dextrose (Dextrose 50% 50ML Syringe) 25-50ML OF 50% DW IV FOR... UD PRN IV 08/24/17 18:45 09/23/17 18:44 Glucagon (Glucagon Inj) 1 mg UD PRN SQ 08/24/17 18:45 09/23/17 18:44 Apixaban (Eliquis Tab) 2.5 mg BID PO 08/25/17 19:30 09/24/17 19:29 09/06/17 08:02 2.5 MG Sodium Chloride ([place] Nasal [place]) 1 sprays PRN PRN NA 08/25/17 20:45 09/24/17 20:44 Calcium/Vitamin D (Caltrate Plus Tab) 1 tab BID PO 08/26/17 09:00 09/25/17 08:59 09/06/17 08:02 1 TAB Acetylcysteine (Mucomyst 20% Inh Soln) 5 ml BIDR INH 08/27/17 20:00 09/26/17 19:59 09/06/17 06:57 5 ML Albuterol/ Ipratropium (Duoneb) 3 ml Q4R INH 08/27/17 20:00 09/26/17 19:59 09/06/17 06:57 3 ML Salmeterol Xinafoate/ Fluticasone (Advair Diskus 250/50 Inh) 1 puff BID INH 08/27/17 21:00 09/26/17 20:59 09/06/17 08:02 1 PUFF Tiotropium [place] (Spiriva Handihaler Inhaler) 1 puff QAM INH 08/28/17 09:00 09/27/17 08:59 09/06/17 08:27 1 PUFF Albuterol/ Ipratropium (Duoneb) 3 ml Q2H PRN INH 08/27/17 19:30 09/26/17 19:29 Guaifenesin (Mucinex Contr Rel Tab) 600 mg Q12 PO 08/27/17 21:00 09/26/17 20:59 09/06/17 08:01 600 MG Glipizide (Glucotrol Tab) 5 mg QDB PO 09/02/17 07:30 10/02/17 07:29 09/06/17 08:02 5 MG Potassium Chloride (Klor-Con M10) 10 meq BID PO 09/02/17 09:00 10/02/17 08:59 09/06/17 08:01 10 MEQ Prednisone (PredniSONE TAB) 10 mg BID PO 09/02/17 21:00 09/29/17 08:59 09/06/17 08:01 10 MG Metoprolol Tartrate (Lopressor Tab) 50 mg BID PO 09/03/17 09:00 09/06/17 23:59 09/06/17 08:05 50 MG Diltiazem HCl (Cardizem Tab) 60 mg TID PO 09/03/17 07:00 09/06/17 23:59 09/06/17 08:02 60 MG Digoxin (Lanoxin Tab) 0.125 mg DAILY@16 PO 09/03/17 16:00 10/03/17 15:59 09/05/17 16:32 0.125 MG Furosemide (Lasix Tab) 80 mg QAM PO 09/05/17 09:00 10/05/17 08:59 09/06/17 08:01 80 MG Diltiazem HCl (Cardizem Cd Cap) 240 mg QAM PO 09/07/17 09:00 10/07/17 08:59 Metoprolol Succinate (Toprol Xl Tab) 100 mg QAM PO 09/07/17 09:00 10/07/17 08:59 Amiodarone HCl (Cordarone Tab) 400 mg QAM PO 09/06/17 09:30 10/06/17 09:29 Impression (1) Acute renal insufficiency (2) Moderate to severe pulmonary hypertension (3) Atrial fibrillation with RVR (4) HTN (hypertension) (5) DM (diabetes mellitus) (6) Cor pulmonale Arlen Boswell is an 81-year-old female with acute kidney injury ( baseline creatinine 1.0) and atrial fibrillation w/ RVR. Medical history is notable for diabetes mellitus II, chronic diastolic CHF and right heart failure with severe pulmonary hypertension. PONCE is consistent with prerenal azotemia with possible ATN. Creatinine improved slightly in the past 24 hours. Urine output is appropriate. Renal US was normal. UA is bland. Metabolic profile is otherwise normal. Arlen has atrial fibrillation. She remains on amiodarone gtt. Recommendations -- Will change diuretic to Bumex 2 mg po daily for better bioavailability -- Recommend BRANDON stockings when OOB -- Monitor I/O's -- Maintain 1.5 L daily fluid restriction for hyponatremia -- Consider palliative care consultation due to advanced pulmonary hypertension. Focus of care will remain management of volume status and improving dyspnea -- No further Nephrology evaluation indicated at this time. Will sign off. Please call if further assistance is needed
[2017-09-06] MEDS: AMIODARONE 200 MG TAB PO SCH (10:54)
--- NOTE | 2017-09-06 15:16 | Progress Note ---
Subjective Date of Service: Sep 06, 2017. Subjective Pt evaluation today including: conversation w/ patient, conversation w/ family , physical exam, lab review, conversation w/ [employer] sales consultant, review of inpatient medication list Pain: no pain PO Intake: adequate Voiding: no voiding problems patient stable today, breathing well long talk with her and her about going to rehab, she now agrees discussed the case with Dr Holloway, stopping Amiodarone drip, converting to PO , rates acceptable reviewed labs, Cr up to 1.59, sugars ranging in mid 200's Problem List Medical Problems: (1) Dehydration Status: Acute (2) Elevated troponin Status: Acute (3) Left sided abdominal pain Status: Acute Review of Systems Constitutional: + weakness, + fatigue Respiratory: + cough, + dyspnea on exertion All Other Systems: Reviewed and Negative Medications Current Inpatient Medications Medications (Trade) Dose Ordered Sig/Mayito Route Start Time Stop Time Status Last Admin Dose Admin Atorvastatin Calcium (Lipitor Tab) 80 mg DAILY PO 08/25/17 09:00 09/24/17 08:59 09/06/17 08:01 80 MG Acetaminophen (Tylenol Tab) 650 mg Q4H PRN PO 08/24/17 17:30 09/23/17 17:29 Al Hydrox/Mg Hydrox/Simethicone (Maalox Max Susp) 15 ml Q4H PRN PO 08/24/17 17:30 09/23/17 17:29 Magnesium Hydroxide (Milk Of Magnesia Susp) 30 ml Q12H PRN PO 08/24/17 17:30 09/23/17 17:29 09/06/17 14:39 30 ML Ondansetron HCl (Zofran Inj) 4 mg Q6H PRN IV 08/24/17 17:30 09/23/17 17:29 08/27/17 14:33 4 MG Morphine Sulfate (MoRPHine SULFATE INJ) 2 mg Q30M PRN IV 08/24/17 17:30 09/07/17 17:29 Polyethylene (Miralax Powder Packet) 17 gm DAILY PRN PO 08/24/17 17:30 09/23/17 17:29 09/06/17 08:02 17 GM Glucose (Glucose 40% Gel) 15-30 GRAMS 15 GRAMS... UD PRN PO 08/24/17 18:45 09/23/17 18:44 Glucose (Glucose Chew Tab) 4-8 Tablets 4 Tabl... UD PRN PO 08/24/17 18:45 09/23/17 18:44 Dextrose (Dextrose 50% 50ML Syringe) 25-50ML OF 50% DW IV FOR... UD PRN IV 08/24/17 18:45 09/23/17 18:44 Glucagon (Glucagon Inj) 1 mg UD PRN SQ 08/24/17 18:45 09/23/17 18:44 Apixaban (Eliquis Tab) 2.5 mg BID PO 08/25/17 19:30 09/24/17 19:29 09/06/17 08:02 2.5 MG Sodium Chloride (White Nasal [place]) 1 sprays PRN PRN NA 08/25/17 20:45 09/24/17 20:44 Calcium/Vitamin D (Caltrate Plus Tab) 1 tab BID PO 08/26/17 09:00 09/25/17 08:59 09/06/17 08:02 1 TAB Acetylcysteine (Mucomyst 20% Inh Soln) 5 ml BIDR INH 08/27/17 20:00 09/26/17 19:59 09/06/17 06:57 5 ML Albuterol/ Ipratropium (Duoneb) 3 ml Q4R INH 08/27/17 20:00 09/26/17 19:59 09/06/17 11:20 3 ML Salmeterol Xinafoate/ Fluticasone (Advair Diskus 250/50 Inh) 1 puff BID INH 08/27/17 21:00 09/26/17 20:59 09/06/17 08:02 1 PUFF Tiotropium [place] (Spiriva Handihaler Inhaler) 1 puff QAM INH 08/28/17 09:00 09/27/17 08:59 09/06/17 08:27 1 PUFF Albuterol/ Ipratropium (Duoneb) 3 ml Q2H PRN INH 08/27/17 19:30 09/26/17 19:29 Guaifenesin (Mucinex Contr Rel Tab) 600 mg Q12 PO 08/27/17 21:00 09/26/17 20:59 09/06/17 08:01 600 MG Glipizide (Glucotrol Tab) 5 mg QDB PO 09/02/17 07:30 10/02/17 07:29 09/06/17 08:02 5 MG Potassium Chloride (Klor-Con M10) 10 meq BID PO 09/02/17 09:00 10/02/17 08:59 09/06/17 08:01 10 MEQ Prednisone (PredniSONE TAB) 10 mg BID PO 09/02/17 21:00 09/29/17 08:59 09/06/17 08:01 10 MG Metoprolol Tartrate (Lopressor Tab) 50 mg BID PO 09/03/17 09:00 09/06/17 23:59 09/06/17 08:05 50 MG Diltiazem HCl (Cardizem Tab) 60 mg TID PO 09/03/17 07:00 09/06/17 23:59 09/06/17 14:38 60 MG Digoxin (Lanoxin Tab) 0.125 mg DAILY@16 PO 09/03/17 16:00 10/03/17 15:59 09/05/17 16:32 0.125 MG Diltiazem HCl (Cardizem Cd Cap) 240 mg QAM PO 09/07/17 08:00 10/07/17 08:59 Metoprolol Succinate (Toprol Xl Tab) 100 mg QAM PO 09/07/17 08:00 10/07/17 08:59 Amiodarone HCl (Cordarone Tab) 400 mg QAM PO 09/06/17 09:30 10/06/17 09:29 09/06/17 10:54 400 MG Bumetanide (Bumex Tab) 2 mg QAM PO 09/07/17 08:00 10/07/17 08:59 Objective Vital Signs Date Time Temp Pulse Resp B/P (MAP) Pulse Ox O2 Delivery O2 Flow Rate FiO2 09/06/17 12:47 36.5 84 18 110/70 (83) 95 4.0 09/06/17 11:51 36.6 75 22 108/62 (77) 94 Nasal Cannula 4.0 09/06/17 11:26 78 20 92 Nasal Cannula 4.0 09/06/17 10:36 36.8 90 22 91 4.0 09/06/17 08:00 36.8 90 22 118/73 (88) 91 Room Air 09/06/17 08:00 94 Nasal Cannula 4.0 Humidified Oxygen 09/06/17 06:59 87 20 91 Nasal Cannula 4.0 09/06/17 04:09 Nasal Cannula Humidified Oxygen 09/06/17 04:01 36.6 76 19 120/74 (89) 91 Nasal Cannula 4.0 09/06/17 00:01 Nasal Cannula Humidified Oxygen 09/05/17 23:10 36.8 91 18 102/63 (76) 90 Nasal Cannula 4.0 09/05/17 23:00 88 20 96 Nasal Cannula 4.0 09/05/17 20:00 Nasal Cannula Humidified Oxygen 09/05/17 19:37 36.8 93 24 103/65 (78) 92 Nasal Cannula 4.0 09/05/17 19:18 92 20 96 Nasal Cannula 4.0 09/05/17 16:32 90 09/05/17 16:00 93 Nasal Cannula 4.0 Humidified Oxygen 09/05/17 15:44 36.6 95 22 118/68 (85) 94 Nasal Cannula 4.0 Physical Exam General Appearance: WD/WN, no apparent distress Eyes: normal inspection, EOMI, sclerae normal ENT: normal ENT inspection, hearing grossly normal, pharynx normal Neck: supple, no adenopathy, no JVD, trachea midline Respiratory/Chest: chest non-tender, lungs clear, no respiratory distress, no accessory muscle use, + decreased breath sounds Cardiovascular: no edema, no gallop, no JVD, no murmur, + irregularly irregular Abdomen: normal bowel sounds, non tender, soft, no organomegaly Extremities: normal range of motion, non-tender, normal inspection, no pedal edema, no calf tenderness, normal capillary refill, pelvis stable Neurologic/Psychiatric: director of critical care II-XII nml as tested, alert, normal mood/affect, oriented x 3, + motor weakness (generalized) Skin: normal color, warm/dry, no rash Laboratory Results Last 24 Hours Test 09/05/17 16:33 09/05/17 21:21 09/06/17 05:38 09/06/17 06:20 Bedside Glucose 266 mg/dl 278 mg/dl 250 mg/dl Sodium Level 130 mmol/L Potassium Level 3.6 mmol/L Chloride Level 89 mmol/L Carbon Dioxide Level 32 mmol/L Anion Gap 10.0 mmol/L Blood Urea Nitrogen 72 mg/dl Creatinine 1.59 mg/dl Est Creatinine Clear Calc Drug Dose 28.1 ml/min Estimated GFR () 34.7 Estimated GFR (Non- 29.9 BUN/Creatinine Ratio 45.2 Random Glucose 239 mg/dl Calcium Level 9.3 mg/dl Test 09/06/17 11:24 Bedside Glucose 251 mg/dl Assessment and Plan 81 y/o F admitted on August 24, 2017, associated with nausea, vomiting and diarrhea x 4 days, and A. fib with rapid ventricular response, now is on amiodarone drip, she developed acute on chronic respiratory failure required BiPAP, has been off BiPAP and back to nasal cannula 4 L/min, which is her baseline , improving - Afib with RVR: failed cardioversion on 09/[address] Holloway will change to Amiodarone PO and long acting Cardizem cardiology following anticoagulated on Eliquis - PONCE: resolved, Cr stable at 1.59, adequate UO continue Lasix 80mg BID volume status is acceptable - Chronic hypoxic respiratory failure: wears 4-5L at all times due to severe pulmonary hypertension, no good treatment Dr. Davila has discussed poor prognosis with patient and her family not ready to commit to hospice yet, remains level 1 continue oxygen supplementation - DM type II: sugars in 200's on Glipizide, cannot have insulin (allergy) monitor for hypoglycemia DVT prophylaxis, Eliquis patient now interested in rehab, needs reassessed by therapy Continued [facility] stay due to: multiple IV medications needed Discharge planning: uncertain
[2017-09-06] MEDS: DIGOXIN 0.125 MG TAB PO SCH (17:28)
[2017-09-06] MEDS ORDERED: SOD PHOSPHATE/SOD BIPHOSPHATE ENEMA 132 ML BTL PR STA (20:07)
[2017-09-06] MEDS ORDERED: BISACODYL 10 MG SUPP PR STA (20:10)
[2017-09-07] VITALS (8 sets, daily range): BP systolic 91–124; BP diastolic 61–82; PULSE 62–86; TEMP 36.5–36.8; O2SAT 90–97
[2017-09-07] MEDS: ALBUT/IPRATROP 3MG/0.5MG NEB 3 ML VIAL INH SCH ×3 (01:55→06:51)
[2017-09-07 06:40] LABS: CALCIUM 9.7 mg/dl (8.5-10.1); CREATININE 1.48 mg/dl (0.60-1.20); POTASSIUM 4.1 mmol/L (3.5-5.1)
[2017-09-07] MEDS: ACETYLCYSTEINE 20% INHAL SOLN ***DISPENSED BY RESP. INH SCH (06:51)
[2017-09-07] MEDS: FLUTICASONE/SALMETEROL 250/50 (ADVAIR) 14 PUFF/1 INHALER INH SCH ×2 (08:00→20:07)
[2017-09-07] MEDS: CALCIUM 600MG + VIT D 400 IU TAB PO SCH ×2 (08:03→20:07)
[2017-09-07] MEDS: BUMETANIDE 1 MG TAB PO SCH (08:10)
[2017-09-07] MEDS: DILTIAZEM HCL 240 MG CAPCR PO SCH (08:12)
[2017-09-07] MEDS: AMIODARONE 200 MG TAB PO SCH (08:13)
[2017-09-07] MEDS: APIXABAN 2.5 MG TAB PO SCH ×2 (08:15→20:07)
[2017-09-07] MEDS: TIOTROPIUM BROMIDE 5 PUFF/90 MCG INH INH SCH (08:19)
[2017-09-07] MEDS: POTASSIUM CHLORIDE 10 MEQ TABCR PO SCH ×2 (08:21→20:08)
[2017-09-07] MEDS: ATORVASTATIN 40 MG TAB PO SCH (08:22)
[2017-09-07] MEDS: METOPROLOL SUCC 50MG EXT REL TAB PO SCH (08:25)
[2017-09-07] MEDS: GUAIFENESIN 600 MG TABCR PO SCH ×2 (08:31→20:08)
--- NOTE | 2017-09-07 15:34 | Progress Note ---
Subjective Date of Service: Sep 07, 2017. Subjective Pt evaluation today including: conversation w/ patient, physical exam, lab review, conversation w/ technical marketing consultant, review of inpatient medication list Pain: no pain PO Intake: adequate Voiding: no voiding problems doing well today participated in PT/OT evaluations CM sending authorization info for [facility] breathing stable, HR stable eating well reviewed labs, still with hyperglycemia discussed with pharmacy Problem List Medical Problems: (1) Dehydration Status: Acute (2) Elevated troponin Status: Acute (3) Left sided abdominal pain Status: Acute Review of Systems Constitutional: + weakness, + fatigue Respiratory: + dyspnea on exertion All Other Systems: Reviewed and Negative Medications Current Inpatient Medications Medications (Trade) Dose Ordered Sig/Mayito Route Start Time Stop Time Status Last Admin Dose Admin Atorvastatin Calcium (Lipitor Tab) 80 mg DAILY PO 08/25/17 09:00 09/24/17 08:59 09/07/17 08:22 80 MG Acetaminophen (Tylenol Tab) 650 mg Q4H PRN PO 08/24/17 17:30 09/23/17 17:29 Al Hydrox/Mg Hydrox/Simethicone (Maalox Max Susp) 15 ml Q4H PRN PO 08/24/17 17:30 09/23/17 17:29 Magnesium Hydroxide (Milk Of Magnesia Susp) 30 ml Q12H PRN PO 08/24/17 17:30 09/23/17 17:29 09/06/17 14:39 30 ML Ondansetron HCl (Zofran Inj) 4 mg Q6H PRN IV 08/24/17 17:30 09/23/17 17:29 08/27/17 14:33 4 MG Morphine Sulfate (MoRPHine SULFATE INJ) 2 mg Q30M PRN IV 08/24/17 17:30 09/07/17 17:29 Polyethylene (Miralax Powder Packet) 17 gm DAILY PRN PO 08/24/17 17:30 09/23/17 17:29 09/06/17 08:02 17 GM Glucose (Glucose 40% Gel) 15-30 GRAMS 15 GRAMS... UD PRN PO 08/24/17 18:45 09/23/17 18:44 Glucose (Glucose Chew Tab) 4-8 Tablets 4 Tabl... UD PRN PO 08/24/17 18:45 09/23/17 18:44 Dextrose (Dextrose 50% 50ML Syringe) 25-50ML OF 50% DW IV FOR... UD PRN IV 08/24/17 18:45 09/23/17 18:44 Glucagon (Glucagon Inj) 1 mg UD PRN SQ 08/24/17 18:45 09/23/17 18:44 Apixaban (Eliquis Tab) 2.5 mg BID PO 08/25/17 19:30 09/24/17 19:29 09/07/17 08:15 2.5 MG Sodium Chloride ([place] Nasal [place]) 1 sprays PRN PRN NA 08/25/17 20:45 09/24/17 20:44 Calcium/Vitamin D (Caltrate Plus Tab) 1 tab BID PO 08/26/17 09:00 09/25/17 08:59 09/07/17 08:03 1 TAB Salmeterol Xinafoate/ Fluticasone (Advair Diskus 250/50 Inh) 1 puff BID INH 08/27/17 21:00 09/26/17 20:59 09/07/17 08:00 1 PUFF Tiotropium [place] (Spiriva Handihaler Inhaler) 1 puff QAM INH 08/28/17 09:00 09/27/17 08:59 09/07/17 08:19 1 PUFF Albuterol/ Ipratropium (Duoneb) 3 ml Q2H PRN INH 08/27/17 19:30 09/26/17 19:29 Guaifenesin (Mucinex Contr Rel Tab) 600 mg Q12 PO 08/27/17 21:00 09/26/17 20:59 09/07/17 08:31 600 MG Glipizide (Glucotrol Tab) 5 mg QDB PO 09/02/17 07:30 10/02/17 07:29 09/07/17 08:20 5 MG Potassium Chloride (Klor-Con M10) 10 meq BID PO 09/02/17 09:00 10/02/17 08:59 09/07/17 08:21 10 MEQ Prednisone (PredniSONE TAB) 10 mg BID PO 09/02/17 21:00 09/29/17 08:59 09/07/17 08:23 10 MG Digoxin (Lanoxin Tab) 0.125 mg DAILY@16 PO 09/03/17 16:00 10/03/17 15:59 09/06/17 17:28 0.125 MG Diltiazem HCl (Cardizem Cd Cap) 240 mg QAM PO 09/07/17 08:00 10/07/17 08:59 09/07/17 08:12 240 MG Metoprolol Succinate (Toprol Xl Tab) 100 mg QAM PO 09/07/17 08:00 10/07/17 08:59 09/07/17 08:25 100 MG Amiodarone HCl (Cordarone Tab) 400 mg QAM PO 09/06/17 09:30 10/06/17 09:29 09/07/17 08:13 400 MG Bumetanide (Bumex Tab) 2 mg QAM PO 09/07/17 08:00 10/07/17 08:59 09/07/17 08:10 2 MG Objective Vital Signs Date Time Temp Pulse Resp B/P (MAP) Pulse Ox O2 Delivery O2 Flow Rate FiO2 09/07/17 11:54 36.8 80 18 124/82 (96) 92 Nasal Cannula 4.0 09/07/17 08:30 Nasal Cannula 3.5 09/07/17 07:40 90 Nasal Cannula 3.5 09/07/17 07:36 36.5 62 20 112/72 (85) 90 Nasal Cannula 3.5 09/07/17 06:53 76 20 97 Nasal Cannula 4.0 09/07/17 02:00 Nasal Cannula 4.0 09/07/17 01:55 86 20 93 Nasal Cannula 4.0 09/07/17 00:20 36.8 84 20 94/61 (72) 92 Nasal Cannula 4.0 09/06/17 20:50 100 20 126/77 (93) 91 Nasal Cannula 4.0 09/06/17 19:01 83 20 97 Nasal Cannula 4.0 09/06/17 17:28 81 09/06/17 16:00 93 Nasal Cannula 4.0 09/06/17 15:41 36.5 83 18 127/74 (91) 93 4.0 Physical Exam General Appearance: WD/WN, no apparent distress Eyes: normal inspection, EOMI, sclerae normal Neck: supple, no adenopathy, no JVD, trachea midline Respiratory/Chest: chest non-tender, lungs clear, no respiratory distress, no accessory muscle use, + decreased breath sounds Cardiovascular: no edema, no gallop, no JVD, no murmur, + irregularly irregular Abdomen: normal bowel sounds, non tender, soft, no organomegaly Extremities: normal range of motion, non-tender, normal inspection, no pedal edema, no calf tenderness, pelvis stable Neurologic/Psychiatric: research professional II-XII nml as tested, alert, normal mood/affect, oriented x 3, + motor weakness Skin: normal color, warm/dry, no rash Lymphatic: no adenopathy Laboratory Results Last 24 Hours Test 09/06/17 16:36 09/06/17 19:33 09/07/17 05:16 09/07/17 07:33 Bedside Glucose 257 mg/dl 311 mg/dl 251 mg/dl Sodium Level 132 mmol/L Potassium Level 4.1 mmol/L Chloride Level 90 mmol/L Carbon Dioxide Level 33 mmol/L Anion Gap 9.0 mmol/L Blood Urea Nitrogen 72 mg/dl Creatinine 1.48 mg/dl Est Creatinine Clear Calc Drug Dose 30.7 ml/min Estimated GFR () 37.8 Estimated GFR (Non- 32.6 BUN/Creatinine Ratio 48.9 Random Glucose 230 mg/dl Calcium Level 9.7 mg/dl Test 09/07/17 11:47 Bedside Glucose 252 mg/dl Assessment and Plan 81 y/o F admitted on August 24, 2017, associated with nausea, vomiting and diarrhea x 4 days, and A. fib with rapid ventricular response, now is on amiodarone drip, she developed acute on chronic respiratory failure required BiPAP, has been off BiPAP and back to nasal cannula 4 L/min, which is her baseline , improving - Afib with RVR: failed cardioversion on 09/[address] Holloway will change to Amiodarone PO and long acting Cardizem cardiology following anticoagulated on Eliquis HR in the 60-80's, still examines irregular - PONCE: resolved, Cr stable at 1.48, adequate UO continue Lasix 80mg BID volume status is acceptable - Chronic hypoxic respiratory failure: wears 4-5L at all times due to severe pulmonary hypertension, no good treatment Dr. Davila has discussed poor prognosis with patient and her family not ready to commit to hospice yet, remains level 1 continue oxygen supplementation taper back Prednisone to 10mg daily starting tomorrow - DM type II: sugars in 200's on Glipizide, cannot have insulin (allergy) monitor for hypoglycemia d/w pharmacy, will increase Glipizide to 5mg AM and 2.5mg PM DVT prophylaxis, [place] patient now interested in rehab, referral sent to [facility], awaiting insurance authorization Continued [facility] stay due to: multiple IV medications needed Discharge planning: uncertain
[2017-09-07] MEDS: DIGOXIN 0.125 MG TAB PO SCH (15:43)
[2017-09-08 00:12] VITALS: BP 108/70; PULSE 86; TEMP 36.6; O2SAT 92
[2017-09-08 07:01] LABS: CALCIUM 9.5 mg/dl (8.5-10.1); CREATININE 1.6 mg/dl (0.60-1.20); POTASSIUM 3.9 mmol/L (3.5-5.1)
[2017-09-08 07:36] VITALS: BP 112/71; PULSE 82; TEMP 36.6; O2SAT 94
[2017-09-08] MEDS: FLUTICASONE/SALMETEROL 250/50 (ADVAIR) 14 PUFF/1 INHALER INH SCH (08:09)
[2017-09-08] MEDS: GUAIFENESIN 600 MG TABCR PO SCH (08:10)
[2017-09-08] MEDS: APIXABAN 2.5 MG TAB PO SCH (08:10)
[2017-09-08] MEDS: BUMETANIDE 1 MG TAB PO SCH (08:10)
[2017-09-08] MEDS: DILTIAZEM HCL 240 MG CAPCR PO SCH (08:10)
[2017-09-08] MEDS: CALCIUM 600MG + VIT D 400 IU TAB PO SCH (08:10)
[2017-09-08] MEDS: POTASSIUM CHLORIDE 10 MEQ TABCR PO SCH (08:10)
[2017-09-08] MEDS: AMIODARONE 200 MG TAB PO SCH (08:11)
[2017-09-08] MEDS: ATORVASTATIN 40 MG TAB PO SCH (08:11)
[2017-09-08] MEDS: METOPROLOL SUCC 50MG EXT REL TAB PO SCH (08:11)
[2017-09-08] MEDS ORDERED: DLTCD/240 PO (10:56)
[2017-09-08] MEDS ORDERED: PRD10 PO (10:56)
[2017-09-08] MEDS ORDERED: LNX125 PO (10:56)
[2017-09-08] MEDS ORDERED: CALCTAB7 PO (10:56)
[2017-09-08] MEDS ORDERED: CRD200 PO (10:56)
[2017-09-08] MEDS ORDERED: SPRIN INH (10:56)
[2017-09-08] MEDS ORDERED: TPRSR50 PO (10:56)
[2017-09-08] MEDS ORDERED: BMX1 PO (10:56)
[2017-09-08] MEDS ORDERED: ELQ25 PO (10:56)
[2017-09-08] MEDS ORDERED: ADVIN25/60 INH (10:56)
[2017-09-08] MEDS ORDERED: GLIP2.5T11 PO (10:58)
--- NOTE | 2017-09-08 11:13 | Discharge Instructions ---
Discharge Instructions Date of Service Sep 08, 2017. Admission Reason for Admission: Atrial Fibrillation With Rvr Discharge Discharge Diagnosis / Problem: Atrial fibrillation with RVR, pulmonary hypertension, right heart failure Discharge Goals Goal(s): Improve function, Improve disease control Activity Recommendations Activity Limitations: resume your previous activity . Instructions / Follow-Up Instructions / Follow-Up Medications: - AMIODARONE: 400mg daily, new medication for atrial fibrillation - DIGOXIN: 0.125mg daily, new medication for atrial fibrillation - CARDIZEM: 240mg daily, new medication for atrial fibrillation - TOPROL: 100mg daily, dose increased from 50mg for better heart rate control with atrial fibrillation - ELIQUIS: 2.5mg twice a day, anticoagulation for atrial fibrillation - SPIRIVA: use once daily, for COPD (lung disease) - ADVAIR: inhale twice a day, for COPD - PREDNISONE: continue to taper, take 10mg daily for 7 days starting tomorrow then take 5mg (1/2 tablet) for 8 days then stop - BUMEX: 2mg daily in the morning for right heart failure, keep volume down - GLIPIZIDE: normally you take 2.5mg daily, for the next week, please take 5mg daily and then you can resume 2.5mg, the higher dose is needed while you take Prednisone 10mg - CALTRATE: calcium and vitamin D supplement Atrial fibrillation: HR has been controlled for several days, you may spontaneously convert to sinus rhythm due to the Amiodarone please continue to take the Cardizem, Toprol, Digoxin and Amiodarone as prescribed take Eliquis for anticoagulation please call office of Dr. Holloway for follow up in 2 weeks, Pulmonary hypertension: as discussed with Dr. Davila, your pulmonary pressures are severely elevated there is no good treatment for this, just provide supplemental oxygen continue on 4-5 liters NC daily COPD (lung disease): continue Spiriva and Advair, take as prescribed everyday to maintain lung function complete two more weeks of Prednisone Right sided heart failure: continue on Bumex 2mg daily follow a 1.5 liter fluid restriction per day, you have been getting this in the hospital this is total fluids (water, coffee, other drinks) FOLLOW UP - please call office of Dr. Ankit Marcano for appointment in 5-7 days for hospital follow up - please call office of Dr. Holloway for appointment in 2 weeks, [phone] - please call office of Dr. Davila for hospital follow up in 4 weeks, [phone] Current Hospital Diet Patient's current hospital diet: AHA Diet (Heart Healthy), Diabetes Type 2 Diet Discharge Diet Recommended Diet: AHA Diet (Heart Healthy), Diabetes Type 2 Diet Fluid Restriction: 1500 ml (6 cups) Procedures Procedures Performed: Cardioversion on 09/05, three attempts, not successful Pending Studies Studies pending at discharge: no Laboratory Results Hemoglobin A1c Test 08/22/17 08:30 Range/Units Estimated Average Glucose 160 mg/dl Hemoglobin A1c 7.2 H 4.5-5.6 % Lipid Panel Test 08/22/17 08:30 Range/Units Triglycerides Level 124 0-150 mg/dl Cholesterol Level 121 0-200 mg/dl HDL Cholesterol 50 mg/dl LDL Cholesterol Direct 62 mg/dl Cholesterol/HDL Ratio 2.4 LDL Cholesterol, Calculated mg/dl Medical Emergencies . Who to Call and When: Medical Emergencies: If at any time you feel your situation is an emergency, please call 911 immediately. . Non-Emergent Contact Non-Emergency issues call your: Primary Care Provider, Tube Sorter Call Non-Emergent contact if: you have any medication questions . . "Provider Documentation" section prepared by Ramesh Gardy . [place] Drug Monitoring Program Search Results: no issues identified
[2017-09-08 11:26] VITALS: BP 112/71; PULSE 82; TEMP 36.6; O2SAT 94
[2017-09-08] MEDS: TIOTROPIUM BROMIDE 5 PUFF/90 MCG INH INH SCH (11:56)
--- NOTE | 2017-09-11 07:55 | Discharge Summary ---
Discharge Summary Date of Service Sep 08, 2017. Discharge Summary Admission Date: Aug 24, 2017 at 17:33 Discharge Date: Sep 08, 2017 Discharge Disposition: Home with services Principal Diagnosis: Atrial fibrillation with RVR Problems/Secondary Diagnoses: Severe pulmonary hypertension COPD PONCE Chronic hypoxic respiratory failure Procedures: Cardioversion, three attempts, failed Consultations: Pulmonology Cardiology Medication Reconciliation New Medications: Amiodarone HCl (Amiodarone HCl) 200 Mg Tab 400 MG PO QAM, #60 TAB 3 Refills Apixaban (Eliquis) 2.5 Mg Tab 2.5 MG PO BID, #60 TAB 3 Refills Bumetanide (Bumetanide) 1 Mg Tab 2 MG PO QAM, #60 TAB 3 Refills Calcium Carbonate-Vitamin D W/ (Caltrate 600 Plus) 1 Tab Tab 1 TAB PO BID, #60 TAB 3 Refills Digoxin (Digoxin) 0.125 Mg Tab 0.125 MG PO DAILY@16, #30 TAB 3 Refills Diltiazem Hcl (Diltiazem Cd) 240 Mg Capcr 240 MG PO QAM, #30 CAP 3 Refills Fluticasone Prop/Salmeterol (Advair Diskus 250/50 60 Dose) 1 Ea Aerp 1 PUFFS INH BID for 30 Days, #1 INHALER 5 Refills Metoprolol Succinate (Metoprolol Succinate ER) 50 Mg Tabcr 100 MG PO QAM, #60 TABS 3 Refills Prednisone (Prednisone) 10 Mg Tab 10 MG PO DAILY, #11 TAB 0 Refills take 10mg daily for 7 days, then take 5mg daily for 8 days Tiotropium [place] (Spiriva Handihaler) 5 Puff/90 Mcg Aerp 1 PUFF INH QAM, #30 DOSE 3 Refills Continued Medications: Atorvastatin (Lipitor) 80 Mg Tab 80 MG PO DAILY, #90 Glipizide (Glipizide Er) 2.5 Mg Tab 2.5 MG PO DAILY, #30 TABS 1 Refill (This prescription has been renewed) Nitroglycerin (Nitrostat) 0.4 Mg Sub 0.4 MG SL DIRECTED PRN for Chest Pain, #25 Discontinued Medications: Metolazone (Zaroxolyn) 2.5 Mg Tab 2.5 MG PO DAILY Metoprolol Succinate (Metoprolol Succinate ER) 100 Mg Tabcr 50 MG PO DAILY, #45 1/2 TABLET [Blood Thinner] () 1 TAB PO DAILY PT UNSURE OF WHAT BLOOD THINNER SHE IS ON. CALLED PHARMACY AND PT DID NOT PERMIT EARL TO RELEASE INFORMATION Discharge Exam Patient feeling well on the day of discharge, sitting up in her chair. Eating well. Breathing at baseline. Discussed that peer to peer was denied by her insurance for her to go to SNF. She said she would want to go home with home services, would not want a further appeal. Discussed medications for discharge. Review of Systems: Constitutional: + weakness, No fever, No chills, No sweats, No weight loss, No fatigue, No problem reported Eyes: No worsening of vision, No eye pain, No redness, No discharge, No diplopia, No problem reported ENT: No hearing loss, No unusual epistaxis, No nasal symptoms, No sore throat, No tinnitus, No dental problems, No trouble swallowing, No problem reported Respiratory: + dyspnea on exertion, No cough, No sputum, No wheezing, No shortness of breath, No dyspnea at rest, No hemoptysis, No problem reported Cardiovascular: No chest pain, No orthopnea, No PND, No edema, No claudication, No palpitations, No problem reported Abdomen: No pain, No nausea, No vomiting, No diarrhea, No constipation, No GI bleeding, No problem reported Musculoskeletal: No joint pain, No muscle pain, No swelling, No calf pain, No problem reported Genitourinary - Female: No dysuria, No urinary frequency, No urinary urgency , No urinary incontinence, No urinary retention, No hematuria Neurologic: + weakness, No memory loss, No paralysis, No numbness/tingling, No vertigo, No balance problems, No problem reported Psychiatric: No depression symptoms, No anhedonism, No anxiety, No insomnia , No substance abuse, No problem reported Endocrine: No fatigue, No excessive thirst, No excessive urination, No problem reported Hematologic / Lymphatic: No abnormal bleeding/bruising, No clotting problems , No swollen lymph nodes, No night sweats, No problem reported Integumentary: No rash, No itch, No new/changing skin lesions, No color change, No bleeding, No problem reported Physical Exam: General Appearance: WD/WN, no apparent distress Eyes: normal inspection, EOMI, sclerae normal ENT: normal ENT inspection, hearing grossly normal, pharynx normal Neck: supple, no adenopathy, no JVD, trachea midline Respiratory/Chest: chest non-tender, lungs clear, no respiratory distress, no accessory muscle use, + decreased breath sounds Cardiovascular: no edema, no gallop, no JVD, no murmur, normal peripheral pulses, + irregularly irregular Abdomen / GI: normal bowel sounds, non tender, soft, no organomegaly Extremities: normal inspection, no calf tenderness, normal capillary refill , no pedal edema, normal range of motion, pelvis stable 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 fib with rapid ventricular response, now is on amiodarone drip, she developed acute on chronic respiratory failure required BiPAP, has been off BiPAP and back to nasal cannula 4 L/min, which is her baseline , improving - Afib with RVR: failed cardioversion on 09/05, three separate attempts continue metoprolol, Cardizem, Digoxin discussed with Dr. Holloway, recommends continue Amiodarone 400mg BID there is a chance she could convert with Amiodarone after discharge anticoagulated on Eliquis HR in the 60-80's, still examines irregular d/c to home and follow up with Dr. Holloway - PONCE: resolved, Cr stable at 1.4 to 1.6 for several days, adequate UO continue Bumex on discharge volume status is acceptable - Chronic hypoxic respiratory failure: wears 4-5L at all times due to severe pulmonary hypertension, no good treatment Dr. Davila has discussed poor prognosis with patient and her family not ready to commit to hospice yet, remains level 1 continue oxygen supplementation taper back Prednisone to 10mg daily for 7 days and then 5mg daily for 8 days - DM type II: sugars in 200's on Glipizide, cannot have insulin (allergy) monitor for hypoglycemia will increase Glipizide to 5mg while on Prednisone, can taper back to 2.5mg once off steroids DVT prophylaxis, Eliquis d/c to home with home health, home therapy Total Time Spent: Greater than 30 minutes This includes examination of the patient, discharge planning, medication reconciliation, and communication with other providers. Discharge Instructions Please refer to the electronic Patient Visit Report (Discharge Instructions) for additional information. Follow-Up Dr. Jacinto Marcano in one week Dr. Holloway in 2-3 weeks Additional Copies To Thomas Maxwell M.D.; Octaviano Holloway M.D.; Zachariah Davila MD
== END 2017-09-08 13:03 | disposition home health service (06) | DRG 308 ==
LOC: C.EDB 12:52 → C.2E 17:33 → ENRESERV 17:58 → C.4E 09-06 09:29 → ENRESERV 09-06 09:54
PROVIDERS: ADMIT Internal Medicine; ATTEND Internal Medicine
PROC: 5A2204Z Restoration of Cardiac Rhythm, Single (ICD-10-PCS; principal; 2017-09-05 07:45)
DX: I48.91 Unspecified atrial fibrillation (principal); J96.21 Acute and chronic respiratory failure with hypoxia; N17.9 Acute kidney failure, unspecified; I13.0 Hypertensive heart and chronic kidney disease with heart failure and stage 1 through stage 4 chronic kidney disease, or unspecified chronic kidney disease; I24.8 Other forms of acute ischemic heart disease; N18.9 Chronic kidney disease, unspecified; I48.92 Unspecified atrial flutter; I27.81 Cor pulmonale (chronic); A08.4 Viral intestinal infection, unspecified; I25.10 Atherosclerotic heart disease of native coronary artery without angina pectoris; E11.9 Type 2 diabetes mellitus without complications; Z87.891 Personal history of nicotine dependence; E86.0 Dehydration; E78.5 Hyperlipidemia, unspecified; Z99.81 Dependence on supplemental oxygen; J44.9 Chronic obstructive pulmonary disease, unspecified; I50.9 Heart failure, unspecified; I27.20 Pulmonary hypertension, unspecified; I50.810 Right heart failure, unspecified; I36.1 Nonrheumatic tricuspid (valve) insufficiency; Z79.84 Long term (current) use of oral hypoglycemic drugs

== ENCOUNTER → 2017-09-14 | Outpatient (CLI) | payer OTHER ==
[~2017-09-14] MED LIST changes: +ADVIN25/60 INH; +BMX1 PO; +CALCTAB7 PO; +CRD200 PO; -CZR50 PO; +DLTCD/240 PO; +ELQ25 PO; -GFNSR600 PO; +LNX125 PO; -LSX40 PO; -METF-384 PO; -POTA-331 PO; +PRD10 PO; +SPRIN INH; -TPRSR/100 PO; +TPRSR50 PO
[2017-09-14 17:13] LABS: BLOOD UREA NITROGEN 42 mg/dl (7-18); CALCIUM 8.8 mg/dl (8.5-10.1); CARBON DIOXIDE 33 mmol/L (21-32); GLUCOSE 143 mg/dl (70-99); POTASSIUM 3.4 mmol/L (3.5-5.1); SODIUM 136 mmol/L (136-145)
== END | disposition home or self-care (01) ==
LOC: C.LABSPEC 12:36
PROVIDERS: ATTEND Internal Medicine
DX: I48.0 Paroxysmal atrial fibrillation (principal)

== ENCOUNTER 2017-10-01 21:54 | Inpatient (IN) | payer OTHER ==
[~2017-10-01] VITALS: Ht 160 cm; Wt 82.7 kg
[2017-10-01] MEDS ORDERED: ONDANSETRON INJ 2 MG/ML 2 ML VIAL IV STA (22:25)
[2017-10-01] MEDS ORDERED: BUME1TAB PO (22:44)
[2017-10-01] MEDS ORDERED: DIGO0.1219 PO (22:44)
[2017-10-01] MEDS ORDERED: XRL15 PO (22:44)
[2017-10-01] MEDS ORDERED: DILT-115 PO (22:44)
[2017-10-01] MEDS ORDERED: CALCTAB7 PO (22:44)
[2017-10-01] MEDS ORDERED: AMIO200T4 PO (22:44)
[2017-10-01] MEDS ORDERED: POTA1CAP2 PO (22:44)
[2017-10-01] MEDS ORDERED: SPRIN/30 INH (22:44)
[2017-10-01] MEDS ORDERED: ADVIN25/60 INH (22:44)
[2017-10-01] MEDS ORDERED: ZRX25 PO (22:44)
[2017-10-01] MEDS ORDERED: GLIP2.5T11 PO (22:44)
[2017-10-01] MEDS ORDERED: TPRSR/50 PO (22:44)
[2017-10-01] MEDS ORDERED: VITA1TAB4 PO (22:44)
--- NOTE | 2017-10-01 22:53 | DIAGNOSTIC IMAGING REPORT ---
CHEST ONE VIEW PORTABLE HISTORY: Atypical CHEST PAIN COMPARISON: Chest 08/30/2017. FINDINGS: Moderate to severe enlargement of the cardiac silhouette, unchanged. Old, healed left-sided rib fractures. Diffuse interstitial and vascular thickening consistent with mild pulmonary edema. Trace bilateral pleural effusions. No new focal lung consolidations. No pneumothorax. IMPRESSION: Cardiomegaly with slight progression of the mild pulmonary edema. Electronically signed by: Rojas Fernández M.D. 10/01/2017 10:52 PM Dictated Date/Time: 10/01/2017 10:51 PM
[2017-10-01] MEDS: SODIUM CHLORIDE 0.9% 250ML 250 ML IV STA ×2 (22:59→23:25)
[2017-10-01 23:27] LABS: BASO % 1.3 %; BASO ABS # 0.09 K/uL (0-0.2); EOS % 3.2 %; EOS ABS # 0.22 K/uL (0-0.5); HEMATOCRIT 37.4 % (37-47); HEMOGLOBIN 12.4 g/dL (12.0-16.0); IG# 0.08 K/uL (0.00-0.02); LYMPH % 28.2 %; LYMPH ABS # 1.94 K/uL (1.2-3.4); MEAN CELL VOLUME 93.5 fL (80-100); MEAN CORPUSCULAR HGB CONC 33.2 g/dl (32-36); MEAN PLATELET VOLUME 10.4 fL (7.4-10.4); MONO ABS # 0.83 K/uL (0.11-0.59); NEUT % 54.1 %; NEUT ABS # 3.73 K/uL (1.4-6.5); PLATELET COUNT 162 K/uL (130-400); RED CELL DISTRIBUTION WIDTH CV 17.1 % (11.5-14.5); RED CELL DISTRIBUTION WIDTH SD 58.1 fL (36.4-46.3); WHITE BLOOD COUNT 6.89 K/uL (4.8-10.8)
[2017-10-01 23:46] LABS: ALBUMIN 2.6 gm/dl (3.4-5.0); CALCIUM 8.9 mg/dl (8.5-10.1); CREATININE 1.37 mg/dl (0.60-1.20); POTASSIUM 3.5 mmol/L (3.5-5.1); TOTAL PROTEIN 6.2 gm/dl (6.4-8.2)
[2017-10-02] VITALS (9 sets, daily range): BP systolic 95–110; BP diastolic 44–60; PULSE 52–71; TEMP 36.4–36.7; O2SAT 92–98; Ht 160 cm; Wt 82.7 kg
[2017-10-02] MEDS ORDERED: SODIUM CHLORIDE 0.9% IV ONE ×2 (00:45→02:00)
[2017-10-02] MEDS ORDERED: DIGOXIN IMMUNE FAB IV ONE ×2 (00:45→02:00)
[2017-10-02] MEDS ORDERED: 0.2 MICRON FILTER SET 1 EA IV ONE (01:00)
[2017-10-02] MEDS ORDERED: ALUMINUM/MAGNESIUM/SIMETH (MAALOX MAX) 30 ML UDC PO PRN (02:00)
[2017-10-02] MEDS ORDERED: ZOLPIDEM TARTRATE 5 MG TAB PO PRN (02:00)
[2017-10-02] MEDS ORDERED: ONDANSETRON INJ 2 MG/ML 2 ML VIAL IV PRN (02:00)
[2017-10-02] MEDS ORDERED: NITROGLYCERIN 0.4 MG SL PER TAB CHARGE SL PRN (02:00)
[2017-10-02] MEDS ORDERED: MoRPHine SULFATE 2 MG/ML CARP IV PRN (02:00)
[2017-10-02] MEDS ORDERED: POLYETHYLENE (MIRALAX) 17 GM PACK PO PRN (02:00)
[2017-10-02] MEDS ORDERED: ACETAMINOPHEN 325 MG TAB PO PRN (02:00)
[2017-10-02] MEDS ORDERED: MAGNESIUM HYDROXIDE SUSP 30 ML UDC PO PRN (02:00)
[2017-10-02] MEDS ORDERED: MAGNESIUM OXIDE 400 MG TAB PO STA (02:41)
--- NOTE | 2017-10-02 02:43 | History and Physical ---
History & Physical Date & Time of Service: Oct 02, 2017 at 01:29 Chief Complaint: Legs Swelling With Fluid, Sickness Primary Care Physician: Thomas Maxwell M.D. History of Present Illness Source: patient 81F with a PMHX of Afib on Xarelto, COPD on home O2, pulmonary HTN, DM2 p/w swelling in the LE, nausea and fatigue x 3 days. Patient states that she prepares her home medications with a home nurse and is taking her meds as prescribed. Patient does not have a electrical design technologist and follows with Dr. Destini Reilly for her Afib. Patient was admitted in late August 2017 for A. Fib with RVR and failed cardioversion 3 times. On discharge she was started on Amiodarone, Digoxin and Diltiazem. Pt got 3 vials (120mg) Digibind in the ER . Digoxin level was 3.1. Pt lives with who brought her in. is not present during HPI. At her baseline, pt ambulates with the assistance of a walker. Past Medical/Surgical History 1) COPD with chronic respiratory failure - dependent on 2L 02 2) Right-sided congestive heart failure - LVEF 50% 3) Coronary artery disease - stenting of the mid LAD, OM1, L main. 4) HTN 5) HPL 6) DM II 7) Pulmonary hypertension Family History No pertinent family history Social History Smoking Status: Former Smoker Drug Use: none Marital Status: Occupational Status: unemployed Allergies Coded Allergies: Insulin (Verified Adverse Reaction, Unknown, other, 08/31/17) Patient states that she has an insulin allergy that caused cardiac arrest, however she admitted to nursing that she is not allergic to insulin, she just does not want to take it. Home Medications Scheduled Amiodarone Hcl (Cordarone), 200 MG PO DAILY Atorvastatin (Lipitor), 80 MG PO DAILY Bumetanide (Bumex), 2 MG PO DAILY Calcium Carbonate-Vitamin D W/ (Caltrate 600 Plus), 1 TAB PO BID Digoxin (Digox), 125 MCG PO DAILY Diltiazem Hcl Ext Rel (Tiazac), 240 MG PO DAILY Fluticasone Prop/Salmeterol (Advair Diskus 250/50 60 Dose), 1 PUFF INH BID Glipizide (Glipizide Er), 2.5 MG PO DAILY Metolazone (Metolazone), 2.5 MG PO DIRECTED Metoprolol Succinate (Metoprolol Succinate ER), 100 MG PO DAILY Potassium Chloride (Potassium Chloride Er), 20 MEQ PO BID Rivaroxaban (Xarelto), 15 MG PO DAILY Tiotropium [place] (Spiriva Handihaler), 1 CAP INH DAILY Vitamin E (Vitamin E), 1 TAB PO DAILY Scheduled PRN Nitroglycerin (Nitrostat), 0.4 MG SL DIRECTED PRN for Chest Pain Review of Systems Constitutional: + weakness, No fever, No chills Respiratory: + dyspnea on exertion, No cough, No sputum, No wheezing, No shortness of breath Cardiovascular: + edema, No chest pain, No claudication, No palpitations Abdomen: + nausea, No pain, No vomiting, No diarrhea, No constipation Musculoskeletal: No joint pain Genitourinary - Female: No dysuria Neurologic: No memory loss Endocrine: No fatigue Physical Exam Vital Signs Date Time Temp Pulse Resp B/P (MAP) Pulse Ox O2 Delivery O2 Flow Rate FiO2 10/02/17 01:05 41 21 97 Nasal Cannula 4.0 10/02/17 01:01 106/50 10/02/17 00:50 43 13 100 10/02/17 00:46 100/44 10/02/17 00:35 47 23 100 10/02/17 00:30 41 121/54 100 Nasal Cannula 4.0 10/02/17 00:25 44 19 10/02/17 00:10 49 23 98 10/02/17 00:01 113/51 10/01/17 23:55 42 14 94 10/01/17 23:50 44 19 94 Nasal Cannula 4.0 10/01/17 23:45 109/58 10/01/17 23:35 44 17 93 10/01/17 23:30 100/54 10/01/17 23:20 44 14 97 10/01/17 23:16 111/54 10/01/17 23:05 44 23 97 10/01/17 23:00 44 24 111/57 99 Nasal Cannula 10/01/17 22:56 42 10/01/17 22:55 95 Nasal Cannula 4.0 10/01/17 22:55 95 Nasal Cannula 4.0 10/01/17 22:54 42 24 108/54 95 10/01/17 22:39 44 17 96 10/01/17 22:24 43 12 99 10/01/17 22:03 36.3 46 24 111/60 95 Nasal Cannula 4.0 General Appearance: WD/WN, no apparent distress Neck: supple Respiratory/Chest: chest non-tender, lungs clear, normal breath sounds (did not appreciate any bibasilar rales), no respiratory distress, no accessory muscle use Cardiovascular: no murmur, + bradycardia Abdomen/GI: normal bowel sounds, non tender, soft, no organomegaly, no pulsatile mass Back: normal inspection, no CVA tenderness Extremities/Musculoskelatal: no calf tenderness, normal capillary refill, + pedal edema (3+ pitting edema over the LE bilaterally ) 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, no motor/sensory deficits, alert, normal mood/affect, normal reflexes, oriented x 3 Diagnostics Laboratory Results Results Past 24 Hours Test 10/01/17 22:57 10/01/17 23:02 Range/Units White Blood Count 6.89 4.8-10.8 K/uL Red Blood Count 4.00 4.2-5.4 M/uL Hemoglobin 12.4 12.0-16.0 g/dL Hematocrit 37.4 37-47 % Mean Corpuscular Volume 93.5 80-100 fL Mean Corpuscular Hemoglobin 31.0 25-34 pg Mean Corpuscular Hemoglobin Concent 33.2 32-36 g/dl Platelet Count 162 130-400 K/uL Mean Platelet Volume 10.4 7.4-10.4 fL Neutrophils (%) (Auto) 54.1 % Lymphocytes (%) (Auto) 28.2 % Monocytes (%) (Auto) 12.0 % Eosinophils (%) (Auto) 3.2 % Basophils (%) (Auto) 1.3 % Neutrophils # (Auto) 3.73 1.4-6.5 K/uL Lymphocytes # (Auto) 1.94 1.2-3.4 K/uL Monocytes # (Auto) 0.83 0.11-0.59 K/uL Eosinophils # (Auto) 0.22 0-0.5 K/uL Basophils # (Auto) 0.09 0-0.2 K/uL RDW Standard Deviation 58.1 36.4-46.3 fL RDW Coefficient of Variation 17.1 11.5-14.5 % Immature Granulocyte % (Auto) 1.2 % Immature Granulocyte # (Auto) 0.08 0.00-0.02 K/uL Sodium Level 137 136-145 mmol/L Potassium Level 3.5 3.5-5.1 mmol/L Chloride Level 94 98-107 mmol/L Carbon Dioxide Level 42 21-32 mmol/L Anion Gap 1.0 3-11 mmol/L Blood Urea Nitrogen 39 7-18 mg/dl Creatinine 1.37 0.60-1.20 mg/dl Est Creatinine Clear Calc Drug Dose 32.7 ml/min Estimated GFR () 41.5 Estimated GFR (Non- 35.8 BUN/Creatinine Ratio 28.5 10-20 Random Glucose 97 70-99 mg/dl Calcium Level 8.9 8.5-10.1 mg/dl Magnesium Level 1.6 1.8-2.4 mg/dl Total Bilirubin 1.1 0.2-1 mg/dl Direct Bilirubin 0.5 0-0.2 mg/dl Aspartate Amino Transf (AST/SGOT) 19 15-37 U/L Alanine Aminotransferase (ALT/SGPT) 30 12-78 U/L Alkaline Phosphatase 150 45-117 U/L Troponin I 0.081 0-0.045 ng/ml Pro-B-Type Natriuretic Peptide 03900 0-1800 pg/ml Total Protein 6.2 6.4-8.2 gm/dl Albumin 2.6 3.4-5.0 gm/dl Lipase 102 73-393 U/L Digoxin Level 3.1 0.8-2.0 ng/ml Bedside Troponin I 0.080 0-0.045 ng/ml Diagnostic Radiology CHEST ONE VIEW PORTABLE HISTORY: Atypical CHEST PAIN COMPARISON: Chest 08/30/2017. FINDINGS: Moderate to severe enlargement of the cardiac silhouette, unchanged. Old, healed left-sided rib fractures. Diffuse interstitial and vascular thickening consistent with mild pulmonary edema. Trace bilateral pleural effusions. No new focal lung consolidations. No pneumothorax. IMPRESSION: Cardiomegaly with slight progression of the mild pulmonary edema. EKG Undetermined rhythm Right bundle branch block , plus right ventricular hypertrophy Left posterior fascicular block Bifascicular block Inferior infarct , age undetermined Abnormal ECG When compared with ECG of 05-SEP-2017 08:14, Current undetermined rhythm precludes rhythm comparison, needs review Left posterior fascicular block is now Present Inferior infarct is now Present Impression Assessment and Plan 81F with a PMHX of Afib on Xarelto, COPD on home O2, pulmonary HTN p/w swelling in the LE, nausea and fatigue x 3 days. Found to be in complete heart block and given Digibind in the ER. Heart Block in the setting of Digoxin Toxicity - Level of 3.1 Pt received 120mg Digibind in the ER. Per lit review, 3 vials or 120mg is the recommend reversal dose of a digoxin level of 3.1 in an 85mg person.. BNP is 22,000, Trops are 0.08. Pt reports she does have a nurse that helps her with her medications. Will hold Metoprolol, Diltiazem and Amiodarone. Cardiology consult. - Dr. Downey. Per last DC Summary pt was plugged in with [facility] Cardiology - she denies this. Will place pacer pads. Digoxin level, CMP and Mg level in AM. EKG in AM. Chronic Hypoxic Respiratory Failure (at baseline) On 4-5L of O2 at all times. Per last DC Summary, "Dr. Davila has discussed poor prognosis with patient and her family not ready to commit to hospice yet, remains level 1" Right sided heart failure 2/2 Severe Pulm HTN Last Echo in August 2017 * Severe right ventricular dilatation. * Severe right ventricular systolic dysfunction. * Mildly reduced overall left ventricular systolic function. * Class 2 left ventricular diastolic dysfunction. * Cor pulmonale. * Mild left atrial dilatation. * Severe right atrial dilatation. * Severe tricuspid regurgitation. * Severe pulmonary hypertension. * Compared to an echocardiogram January 10, 2017 the reported severity of the tricuspid regurgitation has increased. However, there remains severe pulmonary hypertension. c/w Home Metolazone and Bumex c/w Potassium supplements. h/o A. Fib with RVR Hold all louise blocking agents as above. c/w home Xarelto 15mg PO daily. - at last DC, pt was discharged on Eliquis 2.5mg BID. CKD Creatinine at baseline, 1.37 Diuretics as above. DM2 HBA1C was 7.2 in August. c/w glipizide HLD c/w Lipitor COPD c/w Spiriva, Advair Diet: Heart Healthy. DVT Proph: Xarelto as above. Admit to Tele. FULL CODE - Level 1 Resident Physician Supervision Note: I was present with Dr. Barbosa during the history and exam. I discussed the case with the resident and agree with the findings and plan as documented in the note. Any exceptions or clarifications are listed here: 81 y//o F Hx AF, COPD on home O2, pulmonary HTN, DM2 , CAD, DM II - presenting with LE edema, nausea, vomiting, weakness - EKG on arrival revealed 3rd degree heart block. Initial labs suggest DIg toxicity. OE AAO x 3 S1,2 isiah, faint CTAB NT, ND Edema present P: Pt was provided with Digibind, external pacers placed Cardiology consult requested as she will need a pacer if rhythm does not normalize with resolution of Dig toxicity Amio and Metoprolol held ' Xarelto continued Sliding scale for DM Documented By: Michael Haynes Resuscitation Status VTE Prophylaxis Will order VTE Prophylaxis: Yes Resident Involvement: Resident Care Provided Care Provided: Adult Hospital Medicine
--- NOTE | 2017-10-02 04:30 | EMERGENCY ROOM VISIT NOTE ---
History First contact with patient: 22:16 Chief Complaint: EDEMA TO EXTREMITY Stated Complaint: LEGS SWELLING WITH FLUID, SICKNESS History of Present Illness The patient is a 81 year old female who presents to the Emergency Room with complaints of nausea, epigastric discomfort, weakness and minimal leg swelling for the past few days it is steadily getting worse. Patient states she has no appetite. Patient denies chest pain, dyspnea, vomiting, diarrhea, fever, chills. Patient states she has been confused on how to take all her medicines. She is call her doctor a few times. She has had some recent changes. She was admitted last month for new onset A. fib with RVR. Review of Systems An 10 system review of systems was completed with positives and pertinent negatives listed in the HPI. Past Medical/Surgical History Medical Problems: (1) ACUTE BRONCHPEUMONITIS, RESP.FAILURE, CAD,CHF (2) ACUTE BRONCHPEUMONITIS, RESP.FAILURE, CAD,CHF (3) ACUTE CHF, CAD, DM2, ART. HTN (4) Acute renal insufficiency (5) Atrial fibrillation with RVR (6) CAD (coronary artery disease) (7) Cor pulmonale (8) Digoxin toxicity (9) DM (diabetes mellitus) (10) HTN (hypertension) (11) Moderate to severe pulmonary hypertension Surgical Problems: (1) Stented coronary artery Family History No pertinent family history Social History Smoking Status: Former Smoker Alcohol Use: none Drug Use: none Marital Status: Current/Historical Medications Scheduled Amiodarone Hcl (Cordarone), 200 MG PO DAILY Atorvastatin (Lipitor), 80 MG PO DAILY Bumetanide (Bumex), 2 MG PO DAILY Calcium Carbonate-Vitamin D W/ (Caltrate 600 Plus), 1 TAB PO BID Digoxin (Digox), 125 MCG PO DAILY Diltiazem Hcl Ext Rel (Tiazac), 240 MG PO DAILY Fluticasone Prop/Salmeterol (Advair Diskus 250/50 60 Dose), 1 PUFF INH BID Glipizide (Glipizide Er), 2.5 MG PO DAILY Metolazone (Metolazone), 2.5 MG PO DIRECTED Metoprolol Succinate (Metoprolol Succinate ER), 100 MG PO DAILY Potassium Chloride (Potassium Chloride Er), 20 MEQ PO BID Rivaroxaban (Xarelto), 15 MG PO DAILY Tiotropium [place] (Spiriva Handihaler), 1 CAP INH DAILY Vitamin E (Vitamin E), 1 TAB PO DAILY Scheduled PRN Nitroglycerin (Nitrostat), 0.4 MG SL DIRECTED PRN for Chest Pain Physical Exam Vital Signs Date Time Temp Pulse Resp B/P (MAP) Pulse Ox O2 Delivery O2 Flow Rate FiO2 10/02/17 01:55 45 18 96 10/02/17 01:46 113/53 10/02/17 01:40 46 21 96 10/02/17 01:31 100/46 10/02/17 01:25 43 14 96 10/02/17 01:16 96/40 10/02/17 01:10 43 18 95 10/02/17 01:05 41 21 97 Nasal Cannula 4.0 10/02/17 01:01 106/50 10/02/17 00:50 43 13 100 10/02/17 00:46 100/44 10/02/17 00:35 47 23 100 10/02/17 00:30 41 121/54 100 Nasal Cannula 4.0 10/02/17 00:25 44 19 10/02/17 00:10 49 23 98 10/02/17 00:01 113/51 10/01/17 23:55 42 14 94 10/01/17 23:50 44 19 94 Nasal Cannula 4.0 10/01/17 23:45 109/58 10/01/17 23:35 44 17 93 10/01/17 23:30 100/54 10/01/17 23:20 44 14 97 10/01/17 23:16 111/54 10/01/17 23:05 44 23 97 10/01/17 23:00 44 24 111/57 99 Nasal Cannula 10/01/17 22:56 42 10/01/17 22:55 95 Nasal Cannula 4.0 10/01/17 22:55 95 Nasal Cannula 4.0 10/01/17 22:54 42 24 108/54 95 10/01/17 22:39 44 17 96 10/01/17 22:24 43 12 99 10/01/17 22:03 36.3 46 24 111/60 95 Nasal Cannula 4.0 Physical Exam VITALS: Vitals are noted on the nurse's note and reviewed by myself. Vital signs bradycardic. GENERAL: Pleasant elderly female mildly dehydrated appearing answering questions appropriately. SKIN: The skin was without rashes, erythema, edema, or bruising. There is no tenting of the skin. Capillary reflex less than 2 seconds. HEAD: Normocephalic atraumatic. EARS: External auditory canals clear, tympanic membranes pearly yanes without erythema or effusion bilaterally. EYES: Pupils equal round and reactive to light and accommodation. Conjunctivae without injection, sclerae without icterus. Extraocular movements intact. NOSE: Patent, turbinates without inflammation or discharge. No sinus tenderness. MOUTH: Mucous membranes mildly dry pharynx without erythema or exudate. Uvula midline. Airway patent. Tongue does not deviate. NECK: Supple without nuchal rigidity. No lymphadenopathy. No thyromegaly. Cervical spine is nontender. No JVD. HEART: Bradycardic rate and rhythm LUNGS: Clear to auscultation bilaterally without wheezes, rales or rhonchi. No retractions or accessory muscle use. ABDOMEN: Positive bowel sounds x 4. Normal tympanic percussion. Soft, tender to palpation epigastric right upper quadrant region, without masses or organomegaly. No guarding or rebound tenderness. No CVA tenderness MUSCULOSKELETAL: No muscle atrophy, erythema, noted. +1 pitting edema up to the mid tib-fib bilaterally. NEURO: Patient was alert and oriented to person place and time. Normal sensation to light and sharp touch. No focal neurological deficits. Medical Decision & Procedures Laboratory Results 10/01/17 22:57 Red Blood Count 4.00, Mean Corpuscular Volume 93.5, Mean Corpuscular Hemoglobin 31.0, Mean Corpuscular Hemoglobin Concent 33.2, Mean Platelet Volume 10.4, Neutrophils (%) (Auto) 54.1, Lymphocytes (%) (Auto) 28.2, Monocytes (%) (Auto) 12.0, Eosinophils (%) (Auto) 3.2, Basophils (%) (Auto) 1.3, Neutrophils # (Auto ) 3.73, Lymphocytes # (Auto) 1.94, Monocytes # (Auto) 0.83, Eosinophils # (Auto ) 0.22, Basophils # (Auto) 0.09 10/01/17 22:57 Test 10/01/17 22:57 10/01/17 23:02 White Blood Count 6.89 K/uL (4.8-10.8) Red Blood Count 4.00 M/uL (4.2-5.4) Hemoglobin 12.4 g/dL (12.0-16.0) Hematocrit 37.4 % (37-47) Mean Corpuscular Volume 93.5 fL (80-100) Mean Corpuscular Hemoglobin 31.0 pg (25-34) Mean Corpuscular Hemoglobin Concent 33.2 g/dl (32-36) Platelet Count 162 K/uL (130-400) Mean Platelet Volume 10.4 fL (7.4-10.4) Neutrophils (%) (Auto) 54.1 % Lymphocytes (%) (Auto) 28.2 % Monocytes (%) (Auto) 12.0 % Eosinophils (%) (Auto) 3.2 % Basophils (%) (Auto) 1.3 % Neutrophils # (Auto) 3.73 K/uL (1.4-6.5) Lymphocytes # (Auto) 1.94 K/uL (1.2-3.4) Monocytes # (Auto) 0.83 K/uL (0.11-0.59) Eosinophils # (Auto) 0.22 K/uL (0-0.5) Basophils # (Auto) 0.09 K/uL (0-0.2) RDW Standard Deviation 58.1 fL (36.4-46.3) RDW Coefficient of Variation 17.1 % (11.5-14.5) Immature Granulocyte % (Auto) 1.2 % Immature Granulocyte # (Auto) 0.08 K/uL (0.00-0.02) Anion Gap 1.0 mmol/L (3-11) Est Creatinine Clear Calc Drug Dose 32.7 ml/min Estimated GFR () 41.5 Estimated GFR (Non- 35.8 BUN/Creatinine Ratio 28.5 (10-20) Calcium Level 8.9 mg/dl (8.5-10.1) Magnesium Level 1.6 mg/dl (1.8-2.4) Total Bilirubin 1.1 mg/dl (0.2-1) Direct Bilirubin 0.5 mg/dl (0-0.2) Aspartate Amino Transf (AST/SGOT) 19 U/L (15-37) Alanine Aminotransferase (ALT/SGPT) 30 U/L (12-78) Alkaline Phosphatase 150 U/L (45-117) Troponin I 0.081 ng/ml (0-0.045) Pro-B-Type Natriuretic Peptide 89246 pg/ml (0-1800) Total Protein 6.2 gm/dl (6.4-8.2) Albumin 2.6 gm/dl (3.4-5.0) Lipase 102 U/L (73-393) Digoxin Level 3.1 ng/ml (0.8-2.0) Bedside Troponin I 0.080 ng/ml (0-0.045) Medications Administered Medications (Trade) Dose Ordered Sig/Mayito Route Start Time Stop Time Status Last Admin Dose Admin Sodium Chloride 250 ml @ 999 mls/hr Q16M STAT IV 10/01/17 22:25 10/01/17 22:40 DC 10/01/17 23:25 999 MLS/HR Digoxin Immune SANG 120 mg/Sodium Chloride 112 ml @ 224 mls/hr NOW ONCE IV 10/02/17 00:45 10/02/17 01:14 DC 10/02/17 01:05 224 MLS/HR ED Course Prior records/ancillary studies reviewed and summarized above. Nursing notes reviewed. The patient's history was concerning for nausea, weakness, abdominal discomfort. Differential diagnosis: Etiologies such as metabolic, medication overdose on accident, infection, hypo/ hyperglycemia, electrolyte abnormalities, cardiac sources, intracerebral event, toxicologic, neurologic, as well as others were entertained. Physical examination: As above. ER treatment provided: IV Lock zofran, Digibind Bedside ultrasound done by myself and my attending shows flattened IVC and dilated gallbladder. Patient was unstable to go to ultrasound for proper gallbladder ultrasound. On reassessment the patient felt better. Diagnostics interpretation by me: ECG: Rate of 44, no acute ST-T wave changes, no P waves, QRS of 0.174, left posterior fascicular block, impression heart block interpreted by myself and my attending The labs revealed elevated digoxin level. Elevated troponin. Imaging studies: CHEST ONE VIEW PORTABLE HISTORY: Atypical CHEST PAIN COMPARISON: Chest 08/30/2017. FINDINGS: Moderate to severe enlargement of the cardiac silhouette, unchanged. Old, healed left-sided rib fractures. Diffuse interstitial and vascular thickening consistent with mild pulmonary edema. Trace bilateral pleural effusions. No new focal lung consolidations. No pneumothorax. IMPRESSION: Cardiomegaly with slight progression of the mild pulmonary edema. Electronically signed by: Rojas Fernández M.D. Consultation: A consultation was placed with the hospitalist, Dr Haynes. The case was discussed and diagnostics were reviewed. The patient was evaluated in the ER for further treatment. I consulted cardiology, Dr. Holloway who saw this patient recently in the hospital and recommend seeing holding her blood pressure medicines and that she does not need a current pacer. He will evaluate her in the morning. He recommends treating for digitoxicity if this occurs. At the time of the consult , the digoxin level was not back. Exam and history seem consistent with dig toxicity with nausea and possible gallbladder problem. Patient was given Digibind. She is admitted to medicine. Patient agrees to treatment plan of admission. Patient is a full code. Patient was reevaluated multiple times. Her heart rates in the 40s. Repeat EKG was unchanged. She had an elevated troponin. Stable H&H. Patient was not in overt heart failure. She is mildly dehydrated appearing. By the evaluation outlined above emergent etiologies such as infection, intracerebral event, neurologic, abnormalities blood glucose, metabolic, as well as others were deemed relatively unlikely. The pt informed about the findings as listed above. All questions were answered and pleased with the treatment. Case reviewed with my attending The chart was completed utilizing [employer] Speech voice recognition software. Grammatical errors, random word insertions, pronoun errors, and incomplete sentences are an occassional consequence of this system due to software limitations, ambient noise, and hardware issues. Any formal questions or concerns about the content, text, or information contained within the body of this dictation should be directly addressed to the physician histology assistant for clarification. Medical Decision as above Medication Reconcilliation Current Medication List: was personally reviewed by me Blood Pressure Screening Patient's blood pressure: Normal blood pressure Impression Primary Impression: Heart block Additional Impressions: Nausea Hypomagnesemia Epigastric discomfort Elevated troponin Departure Information Dispostion Being Evaluated By Hospitalist Condition FAIR Referrals Thomas Maxwell M.D. (PCP) Patient Instructions My [facility] Health Problem Qualifiers
[2017-10-02 07:11] LABS: ALBUMIN 2.7 gm/dl (3.4-5.0); CALCIUM 8.7 mg/dl (8.5-10.1); CREATININE 1.43 mg/dl (0.60-1.20); POTASSIUM 3.1 mmol/L (3.5-5.1); TOTAL PROTEIN 5.9 gm/dl (6.4-8.2)
[2017-10-02] MEDS: FLUTICASONE/SALMETEROL 250/50 (ADVAIR) 14 PUFF/1 INHALER INH SCH ×2 (07:55→20:32)
[2017-10-02] MEDS: TIOTROPIUM BROMIDE 5 PUFF/90 MCG INH INH SCH (07:56)
[2017-10-02] MEDS: POTASSIUM CHLORIDE 20 MEQ TABCR PO SCH ×2 (07:57→20:32)
[2017-10-02] MEDS: BUMETANIDE 1 MG TAB PO SCH (07:57)
[2017-10-02] MEDS: CALCIUM 600MG + VIT D 400 IU TAB PO SCH ×2 (07:57→20:32)
[2017-10-02] MEDS: ATORVASTATIN 40 MG TAB PO SCH (07:57)
[2017-10-02] MEDS: RIVAROXABAN TAB 15 MG TAB PO SCH (07:57)
--- NOTE | 2017-10-02 09:34 | Cardiology Consultation ---
Cardiology Consultation Date of Consultation: Oct 02, 2017. Requesting Physician: Dr. Jin Reason for Consultation: Dig toxicity Pt evaluation today including: conversation w/ patient, physical exam, lab review, review of studies, review of inpatient medication list History of Present Illness This is an 81-year-old woman who has a history of diabetes mellitus, hypertension, coronary artery disease (identified at catheterization on June 25, 2014) as well as severe pulmonary hypertension. She has had stent placement at [facility] on two occasions by her recollection, not recently. She presented August 24, 2017 with GI symptoms but was identified as being in atrial fibrillation. She was not having chest symptoms, specifically not having palpitations, chest discomfort, etc. She is chronically on oxygen on arrival in the emergency room she was noted to be in atrial fibrillation with a rapid ventricular response. She was started on intravenous diltiazem and heparin. By morning she converted back to sinus rhythm with premature atrial beats. On further discussion with her she uses a pulse oximeter at home, she notices from time to time that her heart rate is elevated (in the 115 bpm range) whereas most the time it is in the 70 bpm range. She is unaware of palpitations but has not been in the hospital either when we have documented atrial fibrillation. I suspected she has this at home and that this is not a new finding. She converted back to atrial fibrillation subsequently and we had a lot of difficulty controlling her atrial arrhythmia, ultimately we titrated her oral medications to diltiazem 360 mg daily and metoprolol succinate 100 mg daily. Her heart rate remained elevated on this regimen, I therefore added amiodarone intravenously in hopes of converting her rhythm. She remained in atrial fibrillation however. We scheduled cardioversion for the morning of 09/05/2017, surprisingly we were unable to convert her rhythm with 3 shocks. We continued medical therapy therefore and she was discharged on amiodarone 400 mg daily, digoxin 0.125 mg daily, diltiazem CD 240 mg daily and metoprolol succinate 100 mg daily. She was also discharged on Xarelto 15 mg daily. She now presents with complaints of nausea, she is not having lightheadedness or dizziness and has not had presyncope or syncope. In the emergency room she was noted to have a slow heart rate and she received Digibind for digoxin level of 3.1. Today she feels better, she is not having nausea this morning. It is not clear whether she understands her medical regimen or exactly what she is taking at home. She tells me that 1 of her medications was discontinued, I am not sure what that one was. Past Medical/Surgical History (1) CAD (coronary artery disease) (2) HTN (hypertension) (3) DM (diabetes mellitus) Family History No pertinent family history Social History Smoking Status: Former Smoker History of Alcohol Use: No Review of Systems Constitutional: No fever, No weight loss, No weakness Respiratory: No cough, No wheezing, No shortness of breath, No dyspnea on exertion Cardiac: No chest pain, No orthopnea, No PND, No edema, No palpitations Abdomen: + see HPI, + nausea, No pain, No vomiting, No diarrhea, No GI bleeding Female : No problem reported Neurologic: No paralysis, No weakness, No numbness/tingling, No balance problems Heme: No abnormal bleeding/bruising, No clotting problems Endo: No fatigue Skin: No problem reported All Other Systems: Reviewed and Negative Allergies Coded Allergies: Insulin (Verified Adverse Reaction, Unknown, other, 08/31/17) Patient states that she has an insulin allergy that caused cardiac arrest, however she admitted to nursing that she is not allergic to insulin, she just does not want to take it. Medications Current Inpatient Medications Medications (Trade) Dose Ordered Sig/Mayito Route Start Time Stop Time Status Last Admin Dose Admin Acetaminophen (Tylenol Tab) 650 mg Q4H PRN PO 10/02/17 02:00 11/01/17 01:59 Al Hydrox/Mg Hydrox/Simethicone (Maalox Max Susp) 15 ml Q4H PRN PO 10/02/17 02:00 11/01/17 01:59 Magnesium Hydroxide (Milk Of Magnesia Susp) 30 ml Q12H PRN PO 10/02/17 02:00 11/01/17 01:59 Zolpidem Tartrate (Ambien Tab) 5 mg HSZ PRN PO 10/02/17 02:00 11/01/17 01:59 Ondansetron HCl (Zofran Inj) 4 mg Q6H PRN IV 10/02/17 02:00 11/01/17 01:59 Nitroglycerin (Nitrostat Tab) 0.4 mg UD PRN SL 10/02/17 02:00 11/01/17 01:59 Morphine Sulfate (MoRPHine SULFATE INJ) 2 mg Q30M PRN IV 10/02/17 02:00 10/16/17 01:59 Polyethylene (Miralax Powder Packet) 17 gm DAILY PRN PO 10/02/17 02:00 11/01/17 01:59 Atorvastatin Calcium (Lipitor Tab) 80 mg DAILY PO 10/02/17 09:00 11/01/17 08:59 10/02/17 07:57 80 MG Bumetanide (Bumex Tab) 2 mg DAILY PO 10/02/17 09:00 11/01/17 08:59 10/02/17 07:57 2 MG Calcium/Vitamin D (Caltrate Plus Tab) 1 tab BID PO 10/02/17 09:00 11/01/17 08:59 10/02/17 07:57 1 TAB Salmeterol Xinafoate/ Fluticasone (Advair Diskus 250/50 Inh) 1 puff BID INH 10/02/17 09:00 11/01/17 08:59 10/02/17 07:55 1 PUFF Glipizide (GlipiZIDE EXTENDED REL TAB) 2.5 mg QDB PO 10/02/17 07:30 11/01/17 07:29 10/02/17 07:56 2.5 MG Rivaroxaban (Xarelto Tab) 15 mg DAILY PO 10/02/17 09:00 11/01/17 08:59 10/02/17 07:57 15 MG Tiotropium [place] (Spiriva Handihaler Inhaler) 1 puff DAILY INH 10/02/17 09:00 11/01/17 08:59 10/02/17 07:56 1 PUFF Potassium Chloride (Klor-Con Tab) 20 meq BID PO 10/02/17 09:00 11/01/17 08:59 10/02/17 07:57 20 MEQ Physical Exam Vital Signs Past 12 Hours Date Time Temp Pulse Resp B/P (MAP) Pulse Ox O2 Delivery O2 Flow Rate FiO2 10/02/17 08:13 36.6 58 18 103/51 (68) 94 Nasal Cannula 4.0 10/02/17 04:30 95 Nasal Cannula 4.0 10/02/17 03:38 36.5 52 18 95/44 (61) 98 Nasal Cannula 3.0 10/02/17 02:30 54 20 105/54 95 Nasal Cannula 4.0 10/02/17 02:18 47 18 97/44 97 10/02/17 02:01 97/44 97 Nasal Cannula 4.0 10/02/17 01:55 45 18 96 10/02/17 01:46 113/53 10/02/17 01:40 46 21 96 10/02/17 01:31 100/46 10/02/17 01:25 43 14 96 10/02/17 01:16 96/40 10/02/17 01:10 43 18 95 10/02/17 01:05 41 21 97 Nasal Cannula 4.0 10/02/17 01:01 106/50 10/02/17 00:50 43 13 100 10/02/17 00:46 100/44 10/02/17 00:35 47 23 100 10/02/17 00:30 41 121/54 100 Nasal Cannula 4.0 10/02/17 00:25 44 19 10/02/17 00:10 49 23 98 10/02/17 00:01 113/51 10/01/17 23:55 42 14 94 10/01/17 23:50 44 19 94 Nasal Cannula 4.0 10/01/17 23:45 109/58 10/01/17 23:35 44 17 93 10/01/17 23:30 100/54 10/01/17 23:20 44 14 97 10/01/17 23:16 111/54 10/01/17 23:05 44 23 97 10/01/17 23:00 44 24 111/57 99 Nasal Cannula 10/01/17 22:56 42 10/01/17 22:55 95 Nasal Cannula 4.0 10/01/17 22:55 95 Nasal Cannula 4.0 10/01/17 22:54 42 24 108/54 95 10/01/17 22:39 44 17 96 10/01/17 22:24 43 12 99 10/01/17 22:03 36.3 46 24 111/60 95 Nasal Cannula 4.0 Constitutional: General Apperance: heathly-appearing Level of Distress: NAD Psychiatric: Mental Status: active & alert Head: normocephalic Eyes: EOM: EOMI ENMT: normal ENT inspection, hearing grossly normal Neck: supple, no masses Lungs: Respiratory effort: no dyspnea, good air movement Auscultation: breath sounds normal, no wheezing Cardiovascular: Heart Auscultation: no murmurs, no rubs, no gallops, bradycardia, irregular rate rhythm Peripheral Pulses: Bruits: none appreciated Abdomen: Bowel Sounds: normal Inspection & Palpation: soft, no tenderness, guarding & rebound, no masses Musculoskeletal: normal strength (5/5 throughout) Extremities: no edema Neurologic: Cranial Nerves: grossly intact Sensation: grossly intact Data Laboratory Results: Last 24 Hours Test 10/01/17 22:57 10/01/17 23:02 10/02/17 05:52 10/02/17 06:55 White Blood Count 6.89 K/uL Red Blood Count 4.00 M/uL Hemoglobin 12.4 g/dL Hematocrit 37.4 % Mean Corpuscular Volume 93.5 fL Mean Corpuscular Hemoglobin 31.0 pg Mean Corpuscular Hemoglobin Concent 33.2 g/dl Platelet Count 162 K/uL Mean Platelet Volume 10.4 fL Neutrophils (%) (Auto) 54.1 % Lymphocytes (%) (Auto) 28.2 % Monocytes (%) (Auto) 12.0 % Eosinophils (%) (Auto) 3.2 % Basophils (%) (Auto) 1.3 % Neutrophils # (Auto) 3.73 K/uL Lymphocytes # (Auto) 1.94 K/uL Monocytes # (Auto) 0.83 K/uL Eosinophils # (Auto) 0.22 K/uL Basophils # (Auto) 0.09 K/uL RDW Standard Deviation 58.1 fL RDW Coefficient of Variation 17.1 % Immature Granulocyte % (Auto) 1.2 % Immature Granulocyte # (Auto) 0.08 K/uL Sodium Level 137 mmol/L 141 mmol/L Potassium Level 3.5 mmol/L 3.1 mmol/L Chloride Level 94 mmol/L 95 mmol/L Carbon Dioxide Level 42 mmol/L 41 mmol/L Anion Gap 1.0 mmol/L 4.0 mmol/L Blood Urea Nitrogen 39 mg/dl 38 mg/dl Creatinine 1.37 mg/dl 1.43 mg/dl Est Creatinine Clear Calc Drug Dose 32.7 ml/min 30.9 ml/min Estimated GFR () 41.5 39.4 Estimated GFR (Non- 35.8 34.0 BUN/Creatinine Ratio 28.5 26.4 Random Glucose 97 mg/dl 98 mg/dl Calcium Level 8.9 mg/dl 8.7 mg/dl Magnesium Level 1.6 mg/dl 1.6 mg/dl Total Bilirubin 1.1 mg/dl 1.2 mg/dl Direct Bilirubin 0.5 mg/dl Aspartate Amino Transf (AST/SGOT) 19 U/L 16 U/L Alanine Aminotransferase (ALT/SGPT) 30 U/L 30 U/L Alkaline Phosphatase 150 U/L 148 U/L Troponin I 0.081 ng/ml Pro-B-Type Natriuretic Peptide 97727 pg/ml Total Protein 6.2 gm/dl 5.9 gm/dl Albumin 2.6 gm/dl 2.7 gm/dl Lipase 102 U/L Digoxin Level 3.1 ng/ml 0.4 ng/ml Bedside Troponin I 0.080 ng/ml Globulin 3.2 gm/dl Albumin/Globulin Ratio 0.8 Bedside Glucose 133 mg/dl Test 10/02/17 07:35 Troponin I 0.061 ng/ml EKG: Underlying atrial fibrillation, wide-complex rhythm with a right bundle branch block and left posterior fascicular block pattern (identical however to her prior conduction pattern), consistent with AV block block however there is some irregularity suggesting that there is still AV conduction and does not complete heart block. Telemetry reviewed: On arrival she was in atrial fibrillation but had a slow ventricular rate in the 40s consistent with excessive AV louise block, that has gradually increased to the 60s this morning, still irregular. Assessment & Plan 1. Nausea: This could be a side effect of digoxin, especially since her level was somewhat high. That is improved with Digibind which would be consistent. Other causes are of course possible. I would continue to observe to see whether this recurs. Amiodarone can also cause this but she is not on a high dose. 2. Bradycardia: Although I do not believe she was in complete heart block due to the irregularity in her rhythm, she was quite bradycardic on presentation. This is probably a combination of her medications. Perhaps amiodarone and digoxin, although she is still slow this morning but improved after Digibind suggesting digoxin was not a big component but probably contributed. I would recommend keeping her off of digoxin, her other medication still may be effective if she took them yesterday morning. For now I will keep her off of her medications, but we probably will want to reinstitute them gradually, the amiodarone I would hold off restarting for now. Unfortunately we did not have good rate control on calcium blockade and beta-blockade but amiodarone is not a good long-term rate control drug. We will have to discuss options with her if her heart rate goes fast again, which is likely. 3. Digoxin toxicity: Her dig level was elevated, perhaps enough to cause nausea and certainly probably enough to contribute to her bradycardia although the rate did not change dramatically after Digibind. It is improved however and therefore we probably should leave her off of digoxin. Her creatinine did not seem to change substantially. 4. Atrial fibrillation: Unfortunately her atrial fibrillation may become difficult, we were not able to rate control her with normal doses of standard medications (beta blockade and/or calcium blockade), but keeping her on which she is currently taking is probably not a good long-term option. Future considerations therefore include ablation for rate control and implantation of a pacemaker, this may be the best option. I do not think we should consider A. fib ablation. We will have to make these decisions once we see what happens to her heart rate. Thank you for allowing me to participate in her care.
[2017-10-02] MEDS ORDERED: MAGNESIUM SULFATE 1GM / D5W 1 GM in PREMIXED IN D5W 100 ML IV STA (10:30)
[2017-10-02] MEDS ORDERED: POTASSIUM CHLORIDE 20 MEQ TABCR PO STA (10:30)
--- NOTE | 2017-10-02 10:44 | Family Medicine Progress Note ---
Progress Note Date of Service Oct 02, 2017. Subjective Pt evaluation today including: conversation w/ patient, physical exam, chart review, lab review, review of studies, conversation w/ program consultant, review of inpatient medication list Pain: 0/10 PO Intake: improved Voiding: no voiding problems Patient states that her nausea has since improved She states that the "band like sensation" around her abdomen does persist but she does not call it a pain she ate this morning and she states that she tolerated the food well she denies any abdominal pain, diarrhea or urinary symptoms Constitutional: No fever Eyes: No worsening of vision ENT: No hearing loss Respiratory: + dyspnea on exertion (BL), No cough, No sputum, No wheezing, No shortness of breath Cardiovascular: No chest pain Abdomen: + problem reported (as above), No pain, No nausea, No vomiting, No diarrhea, No constipation Musculoskeletal: + swelling (bilat LE however currently not worse than her BL), No joint pain, No muscle pain Female : No dysuria, No hematuria Neurologic: + weakness, No balance problems Psychiatric: No depression symptoms Heme: No abnormal bleeding/bruising Endo: + fatigue Skin: No rash Medications Medications Administered Medications (Trade) Dose Ordered Sig/Mayito Route Start Time Stop Time Status Last Admin Dose Admin Sodium Chloride 250 ml @ 999 mls/hr Q16M STAT IV 10/01/17 22:25 10/01/17 22:40 DC 10/01/17 23:25 999 MLS/HR Digoxin Immune SANG 120 mg/Sodium Chloride 112 ml @ 224 mls/hr NOW ONCE IV 10/02/17 00:45 10/02/17 01:14 DC 10/02/17 01:05 224 MLS/HR Atorvastatin Calcium (Lipitor Tab) 80 mg DAILY PO 10/02/17 09:00 11/01/17 08:59 10/02/17 07:57 80 MG Bumetanide (Bumex Tab) 2 mg DAILY PO 10/02/17 09:00 11/01/17 08:59 10/02/17 07:57 2 MG Calcium/Vitamin D (Caltrate Plus Tab) 1 tab BID PO 10/02/17 09:00 11/01/17 08:59 10/02/17 07:57 1 TAB Salmeterol Xinafoate/ Fluticasone (Advair Diskus 250/50 Inh) 1 puff BID INH 10/02/17 09:00 11/01/17 08:59 10/02/17 07:55 1 PUFF Glipizide (GlipiZIDE EXTENDED REL TAB) 2.5 mg QDB PO 10/02/17 07:30 11/01/17 07:29 10/02/17 07:56 2.5 MG Rivaroxaban (Xarelto Tab) 15 mg DAILY PO 10/02/17 09:00 11/01/17 08:59 10/02/17 07:57 15 MG Tiotropium [place] (Spiriva Handihaler Inhaler) 1 puff DAILY INH 10/02/17 09:00 11/01/17 08:59 10/02/17 07:56 1 PUFF Potassium Chloride (Klor-Con Tab) 20 meq BID PO 10/02/17 09:00 11/01/17 08:59 10/02/17 07:57 20 MEQ Magnesium Oxide (Mag-Ox Tab) 400 mg NOW STAT PO 10/02/17 02:41 10/02/17 02:42 DC 10/02/17 06:01 400 MG Objective Vital Signs Date Time Temp Pulse Resp B/P (MAP) Pulse Ox O2 Delivery O2 Flow Rate FiO2 10/02/17 08:13 36.6 58 18 103/51 (68) 94 Nasal Cannula 4.0 10/02/17 08:00 Nasal Cannula 4.0 10/02/17 04:30 95 Nasal Cannula 4.0 10/02/17 03:38 36.5 52 18 95/44 (61) 98 Nasal Cannula 3.0 10/02/17 02:30 54 20 105/54 95 Nasal Cannula 4.0 10/02/17 02:18 47 18 97/44 97 10/02/17 02:01 97/44 97 Nasal Cannula 4.0 10/02/17 01:55 45 18 96 10/02/17 01:46 113/53 10/02/17 01:40 46 21 96 10/02/17 01:31 100/46 10/02/17 01:25 43 14 96 10/02/17 01:16 96/40 10/02/17 01:10 43 18 95 10/02/17 01:05 41 21 97 Nasal Cannula 4.0 10/02/17 01:01 106/50 10/02/17 00:50 43 13 100 10/02/17 00:46 100/44 10/02/17 00:35 47 23 100 10/02/17 00:30 41 121/54 100 Nasal Cannula 4.0 10/02/17 00:25 44 19 10/02/17 00:10 49 23 98 10/02/17 00:01 113/51 10/01/17 23:55 42 14 94 10/01/17 23:50 44 19 94 Nasal Cannula 4.0 10/01/17 23:45 109/58 10/01/17 23:35 44 17 93 10/01/17 23:30 100/54 10/01/17 23:20 44 14 97 10/01/17 23:16 111/54 10/01/17 23:05 44 23 97 10/01/17 23:00 44 24 111/57 99 Nasal Cannula 10/01/17 22:56 42 10/01/17 22:55 95 Nasal Cannula 4.0 10/01/17 22:55 95 Nasal Cannula 4.0 10/01/17 22:54 42 24 108/54 95 10/01/17 22:39 44 17 96 10/01/17 22:24 43 12 99 10/01/17 22:03 36.3 46 24 111/60 95 Nasal Cannula 4.0 Physical Exam General Appearance: no apparent distress Eyes: normal inspection ENT: normal ENT inspection, + pertinent finding (poor dentition) Neck: supple Respiratory/Chest: no respiratory distress, no accessory muscle use, + pertinent finding (decreased to bilat bases without crackles or wheezing) Cardiovascular: no murmur, + bradycardia, + irregularly irregular Abdomen: normal bowel sounds, non tender, soft Extremities: non-tender, no calf tenderness, + pedal edema (+3 bilat pedal edema to upper calves ), + pertinent finding (stasis dermatitis changes) Neurologic/Psychiatric: alert, normal mood/affect, oriented x 3 Skin: normal color, warm/dry, no rash Lymphatic: no adenopathy Laboratory Results Results Past 24 Hours Test 10/01/17 22:57 10/01/17 23:02 10/02/17 05:52 10/02/17 06:55 Range/Units White Blood Count 6.89 4.8-10.8 K/uL Red Blood Count 4.00 4.2-5.4 M/uL Hemoglobin 12.4 12.0-16.0 g/dL Hematocrit 37.4 37-47 % Mean Corpuscular Volume 93.5 80-100 fL Mean Corpuscular Hemoglobin 31.0 25-34 pg Mean Corpuscular Hemoglobin Concent 33.2 32-36 g/dl Platelet Count 162 130-400 K/uL Mean Platelet Volume 10.4 7.4-10.4 fL Neutrophils (%) (Auto) 54.1 % Lymphocytes (%) (Auto) 28.2 % Monocytes (%) (Auto) 12.0 % Eosinophils (%) (Auto) 3.2 % Basophils (%) (Auto) 1.3 % Neutrophils # (Auto) 3.73 1.4-6.5 K/uL Lymphocytes # (Auto) 1.94 1.2-3.4 K/uL Monocytes # (Auto) 0.83 0.11-0.59 K/uL Eosinophils # (Auto) 0.22 0-0.5 K/uL Basophils # (Auto) 0.09 0-0.2 K/uL RDW Standard Deviation 58.1 36.4-46.3 fL RDW Coefficient of Variation 17.1 11.5-14.5 % Immature Granulocyte % (Auto) 1.2 % Immature Granulocyte # (Auto) 0.08 0.00-0.02 K/uL Sodium Level 137 141 136-145 mmol/L Potassium Level 3.5 3.1 3.5-5.1 mmol/L Chloride Level 94 95 98-107 mmol/L Carbon Dioxide Level 42 41 21-32 mmol/L Anion Gap 1.0 4.0 3-11 mmol/L Blood Urea Nitrogen 39 38 7-18 mg/dl Creatinine 1.37 1.43 0.60-1.20 mg/dl Est Creatinine Clear Calc Drug Dose 32.7 30.9 ml/min Estimated GFR () 41.5 39.4 Estimated GFR (Non- 35.8 34.0 BUN/Creatinine Ratio 28.5 26.4 10-20 Random Glucose 97 98 70-99 mg/dl Calcium Level 8.9 8.7 8.5-10.1 mg/dl Magnesium Level 1.6 1.6 1.8-2.4 mg/dl Total Bilirubin 1.1 1.2 0.2-1 mg/dl Direct Bilirubin 0.5 0-0.2 mg/dl Aspartate Amino Transf (AST/SGOT) 19 16 15-37 U/L Alanine Aminotransferase (ALT/SGPT) 30 30 12-78 U/L Alkaline Phosphatase 150 148 45-117 U/L Troponin I 0.081 0-0.045 ng/ml Pro-B-Type Natriuretic Peptide 10581 0-1800 pg/ml Total Protein 6.2 5.9 6.4-8.2 gm/dl Albumin 2.6 2.7 3.4-5.0 gm/dl Lipase 102 73-393 U/L Digoxin Level 3.1 0.4 0.8-2.0 ng/ml Bedside Troponin I 0.080 0-0.045 ng/ml Globulin 3.2 2.5-4.0 gm/dl Albumin/Globulin Ratio 0.8 0.9-2 Bedside Glucose 133 70-90 mg/dl Test 10/02/17 07:35 Range/Units Troponin I 0.061 0-0.045 ng/ml Assessment and Plan 81F with a PMHX of Afib on Xarelto, COPD on home O2, pulmonary HTN p/w swelling in the LE, nausea and fatigue x 3 days. As patient was suffering from symptoms consistent with digoxin toxicity and elevated digoxin level patient was treated with Digibind. Bradycardia, hypotension, possible digoxin toxicity - patient received 3 vials of Digibind on admission 10/01/17 - troponin trending down, most likely demand ischemia - Digoxin, diltiazem, amiodarone and metoprolol currently held per cardio recs; she apparently had one medication d/c per PCP will have to confirm with PCP which medication was held - Tele to monitor for ECG changes - Monitor K for hypokalemia, repleted this am Chronic Hypoxic Hypercapnic Respiratory Failure, COPD stable - On 3 L of O2 at all times. - symptomatic treatment Chronic combined diastolic/ systolic CHF- stable Last Echo in August 2017 * Severe right ventricular dilatation.Severe right ventricular systolic dysfunction.Mildly reduced overall left ventricular systolic function. * Class 2 left ventricular diastolic dysfunction.Cor pulmonale. * Mild left atrial dilatation.Severe right atrial dilatation.Severe tricuspid regurgitation.Severe pulmonary hypertension. - patient's bumex cont'd - Metolazone held as will be at increased risk for hypokalemia following digbind - I&O and daily wts Atrial Fibrillation - continue Xarelto 15 mg daily - currently her rate controlling medications held, amiodarone does have long half life however currently in a fibb - will have to monitor as increased risk of RVR, unable to use digoxin for rate control in light of recent digibind use CKD IIIb- stable Creatinine at baseline, will renally dose medications and follow DM2 glipizide - BSG AC/HS, if needed will additionally add insulin ISS HLD cont Lipitor COPD cont Spiriva, Advair DVT Proph Xarelto as above. FULL CODE Continued [facility] stay due to: abnormal vital signs Discharge planning: uncertain Reviewed: Pt Seen/Exam by Me History no more nausea Constitutional: denies: fever Respiratory: negative: short of breath Cardiovascular: denies chest pain General Appearance: no apparent distress Respiratory: lungs clear, no respiratory distress Cardiovascular: irregularly irregular Neurologic/Psychiatric: alert, oriented x 3 Skin Characteristics: warm/dry Assessment/Plan Resident Physician Supervision Note: I independently interviewed and examined the patient and verified the aggarwal history and physical, reviewed labs and image studies, discussed the case with the resident Dr. Núñez and agree with the findings and care plan.
--- NOTE | 2017-10-02 18:33 | EMERGENCY ROOM VISIT NOTE ---
ED Visit Note First contact with patient: 22:16 The patient was seen and examined with Kary Chilel PA-C. I agree with the history, physical and findings. Please see the note for disposition and details.
[2017-10-03] VITALS (9 sets, daily range): BP systolic 97–118; BP diastolic 50–66; PULSE 61–74; TEMP 36.4–36.8; O2SAT 92–97
[2017-10-03 06:11] LABS: BASO % 1.9 %; BASO ABS # 0.13 K/uL (0-0.2); EOS % 3.6 %; EOS ABS # 0.24 K/uL (0-0.5); HEMATOCRIT 36.8 % (37-47); HEMOGLOBIN 11.7 g/dL (12.0-16.0); IG# 0.06 K/uL (0.00-0.02); LYMPH ABS # 1.76 K/uL (1.2-3.4); MEAN CELL VOLUME 93.9 fL (80-100); MEAN CORPUSCULAR HEMOGLOBIN 29.8 pg (25-34); MEAN CORPUSCULAR HGB CONC 31.8 g/dl (32-36); MEAN PLATELET VOLUME 10.2 fL (7.4-10.4); MONO % 12.7 %; MONO ABS # 0.86 K/uL (0.11-0.59); NEUT % 54.9 %; NEUT ABS # 3.71 K/uL (1.4-6.5); PLATELET COUNT 152 K/uL (130-400); RED CELL DISTRIBUTION WIDTH CV 17.5 % (11.5-14.5); RED CELL DISTRIBUTION WIDTH SD 59.1 fL (36.4-46.3); WHITE BLOOD COUNT 6.76 K/uL (4.8-10.8)
[2017-10-03 06:47] LABS: ALBUMIN 2.7 gm/dl (3.4-5.0); CALCIUM 8.7 mg/dl (8.5-10.1); CREATININE 1.39 mg/dl (0.60-1.20); POTASSIUM 3.3 mmol/L (3.5-5.1)
[2017-10-03] MEDS: ATORVASTATIN 40 MG TAB PO SCH (07:48)
[2017-10-03] MEDS: CALCIUM 600MG + VIT D 400 IU TAB PO SCH ×2 (07:48→20:10)
[2017-10-03] MEDS: RIVAROXABAN TAB 15 MG TAB PO SCH (07:48)
[2017-10-03] MEDS: TIOTROPIUM BROMIDE 5 PUFF/90 MCG INH INH SCH (07:49)
[2017-10-03] MEDS: BUMETANIDE 1 MG TAB PO SCH (07:49)
[2017-10-03] MEDS: FLUTICASONE/SALMETEROL 250/50 (ADVAIR) 14 PUFF/1 INHALER INH SCH ×2 (07:49→20:10)
[2017-10-03] MEDS: POTASSIUM CHLORIDE 20 MEQ TABCR PO SCH ×2 (07:49→20:11)
--- NOTE | 2017-10-03 08:50 | Cardiology Follow-Up ---
Subjective Date of Service: Oct 03, 2017. Pt evaluation today including: conversation w/ patient, physical exam, lab review, review of studies, review of inpatient medication list History of Present Illness This is an 81-year-old woman who has a history of diabetes mellitus, hypertension, coronary artery disease (identified at catheterization on June 25, 2014) as well as severe pulmonary hypertension. She has had stent placement at [facility] on two occasions by her recollection, not recently. She presented August 24, 2017 with GI symptoms but was identified as being in atrial fibrillation. She was not having chest symptoms, specifically not having palpitations, chest discomfort, etc. She is chronically on oxygen on arrival in the emergency room she was noted to be in atrial fibrillation with a rapid ventricular response. She was started on intravenous diltiazem and heparin. By morning she converted back to sinus rhythm with premature atrial beats. On further discussion with her she uses a pulse oximeter at home, she notices from time to time that her heart rate is elevated (in the 115 bpm range) whereas most the time it is in the 70 bpm range. She is unaware of palpitations but has not been in the hospital either when we have documented atrial fibrillation. I suspected she has this at home and that this is not a new finding. She converted back to atrial fibrillation subsequently and we had a lot of difficulty controlling her atrial arrhythmia, ultimately we titrated her oral medications to diltiazem 360 mg daily and metoprolol succinate 100 mg daily. Her heart rate remained elevated on this regimen, I therefore added amiodarone intravenously in hopes of converting her rhythm. She remained in atrial fibrillation however. We scheduled cardioversion for the morning of 09/05/2017, surprisingly we were unable to convert her rhythm with 3 shocks. We continued medical therapy therefore and she was discharged on amiodarone 400 mg daily, digoxin 0.125 mg daily, diltiazem CD 240 mg daily and metoprolol succinate 100 mg daily. She was also discharged on Xarelto 15 mg daily. She now presents with complaints of nausea, she is not having lightheadedness or dizziness and has not had presyncope or syncope. In the emergency room she was noted to have a slow heart rate and she received Digibind for digoxin level of 3.1. Her GI complaints have cleared and she has no complaints. It is not clear whether she understands her medical regimen or exactly what she is taking at home. She tells me that 1 of her medications was discontinued, I am not sure what that one was. Now she is off of all her rate controlling medications. Social History Smoking Status: Former Smoker History of Alcohol Use: No Review of Systems Respiratory: + dyspnea on exertion (BL), No cough, No sputum, No wheezing, No shortness of breath Cardiac: No chest pain Medications Cardiovascular: Item Value Date Time Atorvastatin 80 mg 10/02/17 0900 Calcium DAILY/PO 10/03/17 0748 (Lipitor Tab) Bumetanide 2 mg 10/02/17 0900 (Bumex Tab) DAILY/PO 10/03/17 0749 Rivaroxaban 15 mg 10/02/17 0900 (Xarelto Tab) DAILY/PO 10/03/17 0748 Potassium Chloride 20 meq 10/02/17 09 (Klor-Con Tab) BID/PO 10/03/17 0749 Objective Vital Signs Past 12 Hours Date Time Temp Pulse Resp B/P (MAP) Pulse Ox O2 Delivery O2 Flow Rate FiO2 10/03/17 07:26 36.4 61 18 107/66 (80) 95 4.0 10/03/17 04:07 95 Nasal Cannula 4.0 10/03/17 03:38 36.5 66 18 97/50 (66) 95 Nasal Cannula 4.0 10/03/17 00:07 95 Nasal Cannula 4.0 10/02/17 23:38 36.6 71 22 110/54 (72) 94 Nasal Cannula 4.0 Last Recorded Weight-Kilograms: 82.500 Physical Exam Constitutional: General Apperance: heathly-appearing Level of Distress: NAD Lungs: Respiratory effort: no dyspnea, good air movement Auscultation: breath sounds normal, no wheezing Cardiovascular: Heart Auscultation: no murmurs, no rubs, no gallops, bradycardia, irregular rate rhythm Peripheral Pulses: Bruits: none appreciated Extremities: no edema Data Laboratory Results: Last 24 Hours Test 10/02/17 11:31 10/02/17 16:19 10/02/17 20:21 10/03/17 05:53 Bedside Glucose 145 mg/dl 135 mg/dl 152 mg/dl White Blood Count 6.76 K/uL Red Blood Count 3.92 M/uL Hemoglobin 11.7 g/dL Hematocrit 36.8 % Mean Corpuscular Volume 93.9 fL Mean Corpuscular Hemoglobin 29.8 pg Mean Corpuscular Hemoglobin Concent 31.8 g/dl Platelet Count 152 K/uL Mean Platelet Volume 10.2 fL Neutrophils (%) (Auto) 54.9 % Lymphocytes (%) (Auto) 26.0 % Monocytes (%) (Auto) 12.7 % Eosinophils (%) (Auto) 3.6 % Basophils (%) (Auto) 1.9 % Neutrophils # (Auto) 3.71 K/uL Lymphocytes # (Auto) 1.76 K/uL Monocytes # (Auto) 0.86 K/uL Eosinophils # (Auto) 0.24 K/uL Basophils # (Auto) 0.13 K/uL RDW Standard Deviation 59.1 fL RDW Coefficient of Variation 17.5 % Immature Granulocyte % (Auto) 0.9 % Immature Granulocyte # (Auto) 0.06 K/uL Sodium Level 137 mmol/L Potassium Level 3.3 mmol/L Chloride Level 94 mmol/L Carbon Dioxide Level 39 mmol/L Anion Gap 4.0 mmol/L Blood Urea Nitrogen 37 mg/dl Creatinine 1.39 mg/dl Est Creatinine Clear Calc Drug Dose 31.7 ml/min Estimated GFR () 40.8 Estimated GFR (Non- 35.2 BUN/Creatinine Ratio 26.5 Random Glucose 100 mg/dl Calcium Level 8.7 mg/dl Magnesium Level 1.9 mg/dl Total Bilirubin 1.1 mg/dl Aspartate Amino Transf (AST/SGOT) 16 U/L Alanine Aminotransferase (ALT/SGPT) 24 U/L Alkaline Phosphatase 144 U/L Total Protein 6.0 gm/dl Albumin 2.7 gm/dl Globulin 3.3 gm/dl Albumin/Globulin Ratio 0.8 Test 10/03/17 06:49 Bedside Glucose 116 mg/dl Telemetry reviewed: Atrial fibrillation, now with a very well-controlled heart rate (not too fast or slow) Assessment and Plan 1. Nausea: This could have been a side effect of digoxin, especially since her level was somewhat high. That is improved with Digibind which would be consistent. Other causes are of course possible. I would continue to observe to see whether this recurs. Amiodarone can also contribute but she is not on a high dose. 2. Bradycardia: Although I do not believe she was in complete heart block due to the irregularity in her rhythm, she was quite bradycardic on presentation. This is probably a combination of her medications. Perhaps amiodarone and digoxin, although she is still not fast after Digibind (as well as holding her other medications) suggesting digoxin was not a big component but probably contributed. I would recommend keeping her off of digoxin, her calcium and beta blockade should not still be active after 48 hours although it can take longer than that. For now I will keep her off of her medications, but we probably need to reinstitute them gradually, the amiodarone I would hold off restarting for now. That one may still be helping with rate control. Unfortunately we did not have good rate control on calcium blockade and beta- blockade but amiodarone is not a good long-term rate control drug, although if we have to we can consider using it. We will have to discuss options with her if her heart rate goes fast again, which is likely, including pacemaker and AV louise ablation. 3. Digoxin toxicity: Her dig level was elevated, perhaps enough to cause nausea and certainly probably enough to contribute to her bradycardia although the rate did not change dramatically after Digibind. It is improved however and therefore we probably should leave her off of digoxin. Her creatinine did not seem to change substantially. 4. Atrial fibrillation: Unfortunately her atrial fibrillation may become difficult, we were not able to rate control her with normal doses of standard medications (beta blockade and/or calcium blockade) during her last hospitalization, but keeping her on amiodarone for rate control is probably not a good long-term option. Future considerations therefore include ablation for rate control and implantation of a pacemaker, this may be the best option. I do not think we should consider A. fib ablation. We will have to make these decisions once we see what happens to her heart rate. Thank you for allowing me to participate in her care.
--- NOTE | 2017-10-03 10:35 | Family Medicine Progress Note ---
Progress Note Date of Service Oct 03, 2017. Subjective Pt evaluation today including: conversation w/ patient, physical exam, chart review, lab review, review of studies, conversation w/ optimization consultant, review of inpatient medication list Pain: denies PO Intake: inadequate Voiding: no voiding problems Patient remains in Atrial fibrillation, rate controlled. Patient denies Chest pain, palpitation, presyncope, syncope, orthopnea Constitutional: No fever, No chills, No weakness Respiratory: No cough, No wheezing, No shortness of breath Cardiovascular: No chest pain, No orthopnea, No edema, No claudication, No palpitations Abdomen: No pain, No nausea, No vomiting, No diarrhea Female : No dysuria, No urinary frequency, No hematuria Skin: No rash, No itch Medications Current Inpatient Medications Medications (Trade) Dose Ordered Sig/Mayito Route Start Time Stop Time Status Last Admin Dose Admin Acetaminophen (Tylenol Tab) 650 mg Q4H PRN PO 10/02/17 02:00 11/01/17 01:59 Al Hydrox/Mg Hydrox/Simethicone (Maalox Max Susp) 15 ml Q4H PRN PO 10/02/17 02:00 11/01/17 01:59 Magnesium Hydroxide (Milk Of Magnesia Susp) 30 ml Q12H PRN PO 10/02/17 02:00 11/01/17 01:59 Zolpidem Tartrate (Ambien Tab) 5 mg HSZ PRN PO 10/02/17 02:00 11/01/17 01:59 Ondansetron HCl (Zofran Inj) 4 mg Q6H PRN IV 10/02/17 02:00 11/01/17 01:59 Nitroglycerin (Nitrostat Tab) 0.4 mg UD PRN SL 10/02/17 02:00 11/01/17 01:59 Morphine Sulfate (MoRPHine SULFATE INJ) 2 mg Q30M PRN IV 10/02/17 02:00 10/16/17 01:59 Polyethylene (Miralax Powder Packet) 17 gm DAILY PRN PO 10/02/17 02:00 11/01/17 01:59 Atorvastatin Calcium (Lipitor Tab) 80 mg DAILY PO 10/02/17 09:00 11/01/17 08:59 10/03/17 07:48 80 MG Bumetanide (Bumex Tab) 2 mg DAILY PO 10/02/17 09:00 11/01/17 08:59 10/03/17 07:49 2 MG Calcium/Vitamin D (Caltrate Plus Tab) 1 tab BID PO 10/02/17 09:00 11/01/17 08:59 10/03/17 07:48 1 TAB Salmeterol Xinafoate/ Fluticasone (Advair Diskus 250/50 Inh) 1 puff BID INH 10/02/17 09:00 11/01/17 08:59 10/03/17 07:49 1 PUFF Glipizide (GlipiZIDE EXTENDED REL TAB) 2.5 mg QDB PO 10/02/17 07:30 11/01/17 07:29 10/03/17 07:48 2.5 MG Rivaroxaban (Xarelto Tab) 15 mg DAILY PO 10/02/17 09:00 11/01/17 08:59 10/03/17 07:48 15 MG Tiotropium [place] (Spiriva Handihaler Inhaler) 1 puff DAILY INH 10/02/17 09:00 11/01/17 08:59 10/03/17 07:49 1 PUFF Potassium Chloride (Klor-Con Tab) 20 meq BID PO 10/02/17 09:00 11/01/17 08:59 10/03/17 07:49 20 MEQ Objective Vital Signs Date Time Temp Pulse Resp B/P (MAP) Pulse Ox O2 Delivery O2 Flow Rate FiO2 10/03/17 16:03 36.8 73 20 111/60 (77) 97 Nasal Cannula 4.0 10/03/17 16:00 97 Nasal Cannula 3.0 10/03/17 12:00 Nasal Cannula 4.0 10/03/17 11:17 36.8 74 20 113/54 (73) 97 4.0 10/03/17 08:00 Nasal Cannula 4.0 10/03/17 07:26 36.4 61 18 107/66 (80) 95 4.0 10/03/17 04:07 95 Nasal Cannula 4.0 10/03/17 03:38 36.5 66 18 97/50 (66) 95 Nasal Cannula 4.0 10/03/17 00:07 95 Nasal Cannula 4.0 10/02/17 23:38 36.6 71 22 110/54 (72) 94 Nasal Cannula 4.0 10/02/17 20:35 95 Nasal Cannula 4.0 10/02/17 19:54 36.7 60 22 108/54 (72) 94 Nasal Cannula 4.0 Physical Exam Notes: GENERAL: alert, well appearing, non-toxic EYE EXAM: normal conjunctiva, PERRL and EOM's grossly intact OROPHARYNX: no exudate, no erythema, lips, buccal mucosa, and tongue normal and mucous membranes are moist NECK: supple, no adenopathy LUNGS: Clear to auscultation. Normal chest wall mechanics HEART: no murmurs, irregularly irregular ABDOMEN: abdomen soft, non-tender, normo-active bowel sounds, no masses, no rebound or guarding. SKIN: no rashes and no bruising LOWER EXTREMITIES: 2+ edema. NEURO EXAM:AOx3 , cranial nerves II-XII grossly intact, normal speech Laboratory Results Results Past 24 Hours Test 10/02/17 20:21 10/03/17 05:53 10/03/17 06:49 10/03/17 11:07 Range/Units Bedside Glucose 152 116 160 70-90 mg/dl White Blood Count 6.76 4.8-10.8 K/uL Red Blood Count 3.92 4.2-5.4 M/uL Hemoglobin 11.7 12.0-16.0 g/dL Hematocrit 36.8 37-47 % Mean Corpuscular Volume 93.9 80-100 fL Mean Corpuscular Hemoglobin 29.8 25-34 pg Mean Corpuscular Hemoglobin Concent 31.8 32-36 g/dl Platelet Count 152 130-400 K/uL Mean Platelet Volume 10.2 7.4-10.4 fL Neutrophils (%) (Auto) 54.9 % Lymphocytes (%) (Auto) 26.0 % Monocytes (%) (Auto) 12.7 % Eosinophils (%) (Auto) 3.6 % Basophils (%) (Auto) 1.9 % Neutrophils # (Auto) 3.71 1.4-6.5 K/uL Lymphocytes # (Auto) 1.76 1.2-3.4 K/uL Monocytes # (Auto) 0.86 0.11-0.59 K/uL Eosinophils # (Auto) 0.24 0-0.5 K/uL Basophils # (Auto) 0.13 0-0.2 K/uL RDW Standard Deviation 59.1 36.4-46.3 fL RDW Coefficient of Variation 17.5 11.5-14.5 % Immature Granulocyte % (Auto) 0.9 % Immature Granulocyte # (Auto) 0.06 0.00-0.02 K/uL Sodium Level 137 136-145 mmol/L Potassium Level 3.3 3.5-5.1 mmol/L Chloride Level 94 98-107 mmol/L Carbon Dioxide Level 39 21-32 mmol/L Anion Gap 4.0 3-11 mmol/L Blood Urea Nitrogen 37 7-18 mg/dl Creatinine 1.39 0.60-1.20 mg/dl Est Creatinine Clear Calc Drug Dose 31.7 ml/min Estimated GFR () 40.8 Estimated GFR (Non- 35.2 BUN/Creatinine Ratio 26.5 10-20 Random Glucose 100 70-99 mg/dl Calcium Level 8.7 8.5-10.1 mg/dl Magnesium Level 1.9 1.8-2.4 mg/dl Total Bilirubin 1.1 0.2-1 mg/dl Aspartate Amino Transf (AST/SGOT) 16 15-37 U/L Alanine Aminotransferase (ALT/SGPT) 24 12-78 U/L Alkaline Phosphatase 144 45-117 U/L Total Protein 6.0 6.4-8.2 gm/dl Albumin 2.7 3.4-5.0 gm/dl Globulin 3.3 2.5-4.0 gm/dl Albumin/Globulin Ratio 0.8 0.9-2 Test 10/03/17 16:09 Range/Units Bedside Glucose 139 70-90 mg/dl Assessment and Plan 81 yo F with a hx of of Afib on Xarelto, COPD on home O2, pulmonary HTN p/w LE edema, nausea and fatigue x 3 days found to be bradycardic likely secondary to digoxin toxicity , currently s/p DIgbind treatment Bradycardia in the setting of Digoxin Toxicity, H/o Afib with RVR s/p 20mg Digibind in the ER. Digoxin level :3.1 --> .4 troponin x2 unremarkable Metoprolol, Diltiazem and Amiodarone remain held per Cardiology recommendation current on no medication for rhythm or rate control. 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 * Severe right ventricular systolic dysfunction. * Mildly reduced overall left ventricular systolic function. * Class 2 left ventricular diastolic dysfunction. * Cor pulmonale. * Mild left atrial dilatation. * Severe right atrial dilatation. * Severe tricuspid regurgitation. * Severe pulmonary hypertension. * Compared to an echocardiogram January 10, 2017 the reported severity of the tricuspid regurgitation has increased. However, there remains severe pulmonary hypertension. c/w Home Metolazone and Bumex c/w Potassium supplements. Hypokalemia likely digoxin induced improving with supplementation PO 20 meq BID KCL CKD Creatinine at baseline Continue to monitor DM2 Last HBA1C was 7.2 in August. c/w glipizide HLD c/w Lipitor COPD c/w Spiriva, Advair DVT Proph: Jenna FULL CODE - Level 1 Resident Physician Supervision Note: I interviewed and examined the patient. Discussed with Dr. Cm and agree with findings and plan as documented in the note. Any exceptions or clarifications are listed here: None Documented By: Samm Vogel feeling ok out of bed no new problems vitlas noted nad breathing unlabored HR in mid 70's dig toxicity - resolved afib - follow off dig, titrate meds as needed, currently rates reasonable, appreciate cardiology input anticoagulated otherwise as above Discharge planning: home Resident Tracking Resident Involvement: Resident Care Provided Care Provided: Adult Hospital Medicine
[2017-10-04 03:38] VITALS: BP 101/53; PULSE 71; TEMP 36.5; O2SAT 95
[2017-10-04 04:46] LABS: ALBUMIN 2.5 gm/dl (3.4-5.0); CALCIUM 8.7 mg/dl (8.5-10.1); CREATININE 1.24 mg/dl (0.60-1.20); POTASSIUM 3.1 mmol/L (3.5-5.1)
[2017-10-04 04:48] LABS: TOTAL PROTEIN 5.7 gm/dl (6.4-8.2)
[2017-10-04] MEDS ORDERED: POTASSIUM CHLORIDE 20 MEQ TABCR PO STA (06:41)
--- NOTE | 2017-10-04 06:58 | Family Medicine Progress Note ---
Progress Note Date of Service Oct 04, 2017.
[2017-10-04 07:28] LABS: BASO % 1.7 %; BASO ABS # 0.11 K/uL (0-0.2); EOS % 3.8 %; EOS ABS # 0.25 K/uL (0-0.5); HEMOGLOBIN 11.5 g/dL (12.0-16.0); IG# 0.06 K/uL (0.00-0.02); LYMPH % 23.5 %; LYMPH ABS # 1.55 K/uL (1.2-3.4); MEAN CELL VOLUME 93.6 fL (80-100); MEAN CORPUSCULAR HEMOGLOBIN 30.7 pg (25-34); MEAN CORPUSCULAR HGB CONC 32.9 g/dl (32-36); MEAN PLATELET VOLUME 9.7 fL (7.4-10.4); MONO % 12.1 %; NEUT ABS # 3.83 K/uL (1.4-6.5); PLATELET COUNT 145 K/uL (130-400); RED CELL DISTRIBUTION WIDTH CV 17.6 % (11.5-14.5); RED CELL DISTRIBUTION WIDTH SD 58.9 fL (36.4-46.3)
[2017-10-04 07:31] VITALS: BP 115/55; PULSE 67; TEMP 36.3; O2SAT 95
[2017-10-04] MEDS: FLUTICASONE/SALMETEROL 250/50 (ADVAIR) 14 PUFF/1 INHALER INH SCH (07:41)
[2017-10-04] MEDS: TIOTROPIUM BROMIDE 5 PUFF/90 MCG INH INH SCH (07:42)
[2017-10-04] MEDS: BUMETANIDE 1 MG TAB PO SCH (07:42)
[2017-10-04] MEDS: RIVAROXABAN TAB 15 MG TAB PO SCH (07:43)
[2017-10-04] MEDS: ATORVASTATIN 40 MG TAB PO SCH (07:43)
[2017-10-04] MEDS: CALCIUM 600MG + VIT D 400 IU TAB PO SCH (07:43)
[2017-10-04] MEDS: POTASSIUM CHLORIDE 20 MEQ TABCR PO SCH (07:44)
[2017-10-04 08:00] VITALS: O2SAT 95
--- NOTE | 2017-10-04 08:12 | Clinical Documentation Query ---
Dr. WIGGINS LARRY : CLINICAL DOCUMENTATION QUERY Documentation includes CKD, noting creatinine is at baseline. Estimated GFR range this admission of 34-40 ml/min. Please clarify as clinically appropriate. Thank you. In your clinical opinion is this patient being managed for: ( ) Chronic kidney disease, stage 3 ( ) Not Agree ( ) Other explanation of clinical findings (Please Explain) ( ) Unable to determine (Please Define) ( ) Need to Discuss The medical record reflects the following clinical findings, treatment, and risk factors. Clinical Indicators: As above Treatment: Serial chemistries Risk Factors: Age, DM2, hypertension, cor pulmonale Please clarify and document your clinical opinion in the progress notes and discharge summary. Terms such as "probable", "suspected", "likely", "questionable", "possible", or "still to be ruled out" are acceptable. IF IN AGREEMENT, YOU MUST DOCUMENT ABOVE DIAGNOSTIC STATEMENT IN DAILY PROGRESS NOTES AND DISCHARGE SUMMARY. This document is not part of the patient's record. Thank You, Addy Chilel, EMELYN [phone]
--- NOTE | 2017-10-04 09:27 | Cardiology Follow-Up ---
Subjective Date of Service: Oct 04, 2017. Pt evaluation today including: conversation w/ patient, physical exam, lab review, review of studies, review of inpatient medication list History of Present Illness This is an 81-year-old woman who has a history of diabetes mellitus, hypertension, coronary artery disease (identified at catheterization on June 25, 2014) as well as severe pulmonary hypertension. She has had stent placement at [facility] on two occasions by her recollection, not recently. She presented August 24, 2017 with GI symptoms but was identified as being in atrial fibrillation. She was not having chest symptoms, specifically not having palpitations, chest discomfort, etc. She is chronically on oxygen on arrival in the emergency room she was noted to be in atrial fibrillation with a rapid ventricular response. She was started on intravenous diltiazem and heparin. By morning she converted back to sinus rhythm with premature atrial beats. On further discussion with her she uses a pulse oximeter at home, she notices from time to time that her heart rate is elevated (in the 115 bpm range) whereas most the time it is in the 70 bpm range. She is unaware of palpitations but has not been in the hospital either when we have documented atrial fibrillation. I suspected she has this at home and that this is not a new finding. She converted back to atrial fibrillation subsequently and we had a lot of difficulty controlling her atrial arrhythmia, ultimately we titrated her oral medications to diltiazem 360 mg daily and metoprolol succinate 100 mg daily. Her heart rate remained elevated on this regimen, I therefore added amiodarone intravenously in hopes of converting her rhythm. She remained in atrial fibrillation however. We scheduled cardioversion for the morning of 09/05/2017, surprisingly we were unable to convert her rhythm with 3 shocks. We continued medical therapy therefore and she was discharged on amiodarone 400 mg daily, digoxin 0.125 mg daily, diltiazem CD 240 mg daily and metoprolol succinate 100 mg daily. She was also discharged on Xarelto 15 mg daily. She now presents with complaints of nausea, she is not having lightheadedness or dizziness and has not had presyncope or syncope. In the emergency room she was noted to have a slow heart rate and she received Digibind for digoxin level of 3.1. Her GI complaints have cleared and she has no complaints. Now she is off of all her rate controlling medications. She continues to feel well, she has been up and around without difficulty based on her history and is not short of breath and has no further nausea. She has no palpitations. Social History Smoking Status: Former Smoker History of Alcohol Use: No Review of Systems Respiratory: No cough, No wheezing, No shortness of breath Cardiac: No chest pain, No orthopnea, No edema, No claudication, No palpitations Medications Cardiovascular: Item Value Date Time Atorvastatin 80 mg 10/02/17 0900 Calcium DAILY/PO 10/04/17 0743 (Lipitor Tab) Bumetanide 2 mg 10/02/17 0900 (Bumex Tab) DAILY/PO 10/04/17 0742 Rivaroxaban 15 mg 10/02/17 0900 (Xarelto Tab) DAILY/PO 10/04/17 0743 Potassium Chloride 20 meq 10/02/17 09 (Klor-Con Tab) BID/PO 10/04/17 0744 Objective Vital Signs Past 12 Hours Date Time Temp Pulse Resp B/P (MAP) Pulse Ox O2 Delivery O2 Flow Rate FiO2 10/04/17 08:00 95 Nasal Cannula 4.0 10/04/17 07:31 36.3 67 18 115/55 (75) 95 4.0 10/04/17 04:00 Nasal Cannula 3.0 10/04/17 03:38 36.5 71 20 101/53 (69) 95 Nasal Cannula 4.0 10/04/17 00:00 Nasal Cannula 3.0 10/03/17 23:40 36.6 73 16 102/56 (71) 94 Nasal Cannula 4.0 Last Recorded Weight-Kilograms: 82.700 Physical Exam Constitutional: General Apperance: heathly-appearing Level of Distress: NAD Lungs: Respiratory effort: no dyspnea, good air movement Auscultation: breath sounds normal, no wheezing Cardiovascular: Heart Auscultation: no murmurs, no rubs, no gallops, bradycardia, irregular rate rhythm Peripheral Pulses: Bruits: none appreciated Extremities: no edema Data Laboratory Results: Last 24 Hours Test 10/03/17 11:07 10/03/17 16:09 10/03/17 21:06 10/04/17 04:11 Bedside Glucose 160 mg/dl 139 mg/dl 177 mg/dl Sodium Level 138 mmol/L Potassium Level 3.1 mmol/L Chloride Level 95 mmol/L Carbon Dioxide Level 40 mmol/L Anion Gap 3.0 mmol/L Blood Urea Nitrogen 33 mg/dl Creatinine 1.24 mg/dl Est Creatinine Clear Calc Drug Dose 35.6 ml/min Estimated GFR () 46.8 Estimated GFR (Non- 40.4 BUN/Creatinine Ratio 26.9 Random Glucose 87 mg/dl Calcium Level 8.7 mg/dl Magnesium Level 1.8 mg/dl Total Bilirubin 0.9 mg/dl Aspartate Amino Transf (AST/SGOT) 17 U/L Alanine Aminotransferase (ALT/SGPT) 25 U/L Alkaline Phosphatase 143 U/L Total Protein 5.7 gm/dl Albumin 2.5 gm/dl Globulin 3.2 gm/dl Albumin/Globulin Ratio 0.8 Test 10/04/17 06:46 10/04/17 07:06 Bedside Glucose 105 mg/dl White Blood Count 6.60 K/uL Red Blood Count 3.74 M/uL Hemoglobin 11.5 g/dL Hematocrit 35.0 % Mean Corpuscular Volume 93.6 fL Mean Corpuscular Hemoglobin 30.7 pg Mean Corpuscular Hemoglobin Concent 32.9 g/dl Platelet Count 145 K/uL Mean Platelet Volume 9.7 fL Neutrophils (%) (Auto) 58.0 % Lymphocytes (%) (Auto) 23.5 % Monocytes (%) (Auto) 12.1 % Eosinophils (%) (Auto) 3.8 % Basophils (%) (Auto) 1.7 % Neutrophils # (Auto) 3.83 K/uL Lymphocytes # (Auto) 1.55 K/uL Monocytes # (Auto) 0.80 K/uL Eosinophils # (Auto) 0.25 K/uL Basophils # (Auto) 0.11 K/uL RDW Standard Deviation 58.9 fL RDW Coefficient of Variation 17.6 % Immature Granulocyte % (Auto) 0.9 % Immature Granulocyte # (Auto) 0.06 K/uL Telemetry reviewed: Atrial fibrillation with a well-controlled heart rate Assessment and Plan 1. Nausea: This could have been a side effect of digoxin, especially since her level was somewhat high. That is improved with Digibind which would be consistent. Other causes are of course possible. Amiodarone can also contribute but she was not on a high dose. 2. Bradycardia: Although I do not believe she was in complete heart block due to the irregularity in her rhythm on admission, she was quite bradycardic on presentation. This was probably a combination of her medications. Perhaps amiodarone and digoxin, although her heart rate did not increase much after Digibind (as well as holding her other medications) suggesting digoxin was not a big component but probably contributed. I would recommend keeping her off of digoxin, her calcium and beta blockade should not still be active after 72 hours. For now I will keep her off beta and calcium blockers, at the moment her heart rate appears to be very good without these. 3. Digoxin toxicity: Her dig level was elevated on admission, perhaps enough to cause nausea and certainly probably enough to contribute to her bradycardia although the rate did not change dramatically after Digibind. Her rate is improved however and therefore we probably should leave her off of digoxin. 4. Atrial fibrillation: She remains in atrial fibrillation but inexplicably her heart rate is very well controlled on no medications (although amiodarone is still present in her system). We were not able to rate control her with normal doses of standard medications (beta blockade and/or calcium blockade) during her last hospitalization, and we were not able to convert her rhythm last admission. Perhaps the best option is to keep her on amiodarone, I am going to restart 200 mg daily. She may convert on her own, and at the moment that seems to be the only medication that is controlling her heart rate (due to the very long half-life of the drug) and although I do not normally use it for rate control in her case it may be the best option. Otherwise we have to consider other options such as ablation and pacemaker, etc. We could even consider cardioversion again in the future, there are other techniques that could be used. I do not think she needs to remain in the hospital and we can arrange follow- up as an outpatient. rate. Thank you for allowing me to participate in her care.
[2017-10-04] MEDS ORDERED: AMIODARONE 200 MG TAB PO SCH (09:30)
--- NOTE | 2017-10-04 10:17 | Discharge Instructions ---
Discharge Instructions Date of Service Oct 04, 2017. Admission Reason for Admission: Digoxin Toxicity Discharge Discharge Diagnosis / Problem: Digoxin Toxicity Discharge Goals Goal(s): Decrease discomfort, Improve function, Increase independence, Improve disease control, Improve nutritional status, Learn about illness, Diagnostic testing, Therapeutic intervention, Screening, Prevent Disease Progression, Specific goals Activity Recommendations Activity Limitations: resume your previous activity . Instructions / Follow-Up Instructions / Follow-Up You were admitted with nausea/vomiting fatigue, slow heart rate and were found to have high levels of Digoxin in your blood stream. This medication was likely the cause of your symptoms. You were evaluated by Cardiology and important changes to your medication list were made. - Please do NOT take Digoxin, Metoprolol any longer until you see cardiology outpatient - Please continue to take Amiodarone 200 mg daily - You will be scheduled for follow up with Dr. Holloway outpatient. If you do not hear from his office, please call [phone] to schedule an appointment - Please follow up with your primary care doctor within 1- 2 weeks - If you experience worsening palpitation, chest pain, shortness of breath, dizziness/ lightheadedness contact cardiology clinic for guidance or if concerned, return to Emergency Department for evaluation. Current Hospital Diet Patient's current hospital diet: Diabetes Type 2 Diet, Low Sodium Diet (2gm Na) , AHA Diet (Heart Healthy) Discharge Diet Recommended Diet: Regular Diet Pending Studies Studies pending at discharge: no Laboratory Results Hemoglobin A1c Test 08/22/17 08:30 Range/Units Estimated Average Glucose 160 mg/dl Hemoglobin A1c 7.2 H 4.5-5.6 % Lipid Panel Test 08/22/17 08:30 Range/Units Triglycerides Level 124 0-150 mg/dl Cholesterol Level 121 0-200 mg/dl HDL Cholesterol 50 mg/dl LDL Cholesterol Direct 62 mg/dl Cholesterol/HDL Ratio 2.4 LDL Cholesterol, Calculated mg/dl Medical Emergencies . Who to Call and When: Medical Emergencies: If at any time you feel your situation is an emergency, please call 911 immediately. . Non-Emergent Contact Non-Emergency issues call your: Primary Care Provider Call Non-Emergent contact if: you have a fever, your pain is not controlled, your pain is worsening, your pain is unusual for you, your pain is concerning you, you have any medication questions . . "Provider Documentation" section prepared by Dionicio Cm. .
[2017-10-04 11:55] VITALS: BP 115/55; PULSE 67; TEMP 36.3; O2SAT 95
--- NOTE | 2017-10-04 21:25 | Discharge Summary ---
Discharge Summary Date of Service Oct 04, 2017. Discharge Summary Admission Date: Oct 02, 2017 at 02:00 Discharge Date: Oct 04, 2017 Discharge Disposition: Home Principal Diagnosis: Digoxin Toxicity Problems/Secondary Diagnoses: Atrial Fibrillation Procedures: CHEST ONE VIEW PORTABLE HISTORY: Atypical CHEST PAIN COMPARISON: Chest 08/30/2017. FINDINGS: Moderate to severe enlargement of the cardiac silhouette, unchanged. Old, healed left-sided rib fractures. Diffuse interstitial and vascular thickening consistent with mild pulmonary edema. Trace bilateral pleural effusions. No new focal lung consolidations. No pneumothorax. IMPRESSION: Cardiomegaly with slight progression of the mild pulmonary edema. Consultations: Cardiology Medication Reconciliation Continued Medications: Amiodarone Hcl (Cordarone) 200 Mg Tab 200 MG PO DAILY Atorvastatin (Lipitor) 80 Mg Tab 80 MG PO DAILY, #90 Bumetanide (Bumex) 1 Mg Tab 2 MG PO DAILY Calcium Carbonate-Vitamin D W/ (Caltrate 600 Plus) 1 Tab Tab 1 TAB PO BID Fluticasone Prop/Salmeterol (Advair Diskus 250/50 60 Dose) 1 Ea Aerp 1 PUFF INH BID Glipizide (Glipizide Er) 2.5 Mg Tab 2.5 MG PO DAILY Metolazone (Metolazone) 2.5 Mg Tab 2.5 MG PO DIRECTED TAKE TUESDAY,TUESDAY,TUESDAY & TUESDAY Nitroglycerin (Nitrostat) 0.4 Mg Sub 0.4 MG SL DIRECTED PRN for Chest Pain, #25 Potassium Chloride (Potassium Chloride Er) 10 Meq Cap 20 MEQ PO BID Rivaroxaban (Xarelto) 15 Mg Tab 15 MG PO DAILY Tiotropium Bath (Spiriva Handihaler) 30 Puff/540 Mcg Aerp 1 CAP INH DAILY Vitamin E (Vitamin E) 400 Unit Tab 1 TAB PO DAILY Discontinued Medications: Digoxin (Digox) 125 Mcg Tab 125 MCG PO DAILY Diltiazem Hcl Ext Rel (Tiazac) 240 Mg Capcr 240 MG PO DAILY Metoprolol Succinate (Metoprolol Succinate ER) 50 Mg Tabcr 100 MG PO DAILY Discharge Exam Constitutional: No fever, No chills, No weakness Respiratory: No cough, No wheezing, No shortness of breath Cardiovascular: No chest pain, No orthopnea, No edema, No claudication, No palpitations Abdomen: No pain, No nausea, No vomiting, No diarrhea Female : No dysuria, No urinary frequency, No hematuria Skin: No rash, No itch GENERAL: alert, well appearing, non-toxic EYE EXAM: normal conjunctiva, PERRL and EOM's grossly intact OROPHARYNX: no exudate, no erythema, lips, buccal mucosa, and tongue normal and mucous membranes are moist NECK: supple, no adenopathy LUNGS: Clear to auscultation. Normal chest wall mechanics HEART: no murmurs, irregularly irregular ABDOMEN: abdomen soft, non-tender, normo-active bowel sounds, no masses, no rebound or guarding. SKIN: no rashes and no bruising LOWER EXTREMITIES: 2+ edema. NEURO EXAM:AOx3 , cranial nerves II-XII grossly intact, normal speech Hospital Course H&P 81F with a PMHX of Afib on Xarelto, COPD on home O2, pulmonary HTN, DM2 p/w swelling in the LE, nausea and fatigue x 3 days. Patient states that she prepares her home medications with a home nurse and is taking her meds as prescribed. Patient does not have a neurophysiology tech and follows with Dr. Destini Reilly for her Afib. Patient was admitted in late August 2017 for A. Fib with RVR and failed cardioversion 3 times. On discharge she was started on Amiodarone, Digoxin and Diltiazem. Pt got 3 vials (120mg) Digibind in the ER . Digoxin level was 3.1. Pt lives with who brought her in. is not present during HPI. At her baseline, pt ambulates with the assistance of a walker. Course: 81 yo F with a hx of of Afib on Xarelto, COPD on home O2, pulmonary HTN p/w LE edema, nausea and fatigue x 3 days found to be bradycardic likely secondary to digoxin toxicity , s/p DIgbind treatment in Emergency Department Bradycardia in the setting of Digoxin Toxicity, H/o Afib with RVR s/p 20mg Digibind in the ER. Digoxin level trended down 3.1 --> .4 troponin x2 unremarkable Metoprolol, Diltiazem and Amiodarone held per Cardiology recommendation continued home Xarelto 15mg PO daily HR controlled up until discharge AMiodarone restarted prior to discharge. 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 Severe right ventricular systolic dysfunction. Mildly reduced overall left ventricular systolic function. Class 2 left ventricular diastolic dysfunction. Cor pulmonale. Mild left atrial dilatation. Severe right atrial dilatation. Severe tricuspid regurgitation. Severe pulmonary hypertension. Compared to an echocardiogram January 10, 2017 the reported severity of the tricuspid regurgitation has increased. However, there remains severe pulmonary hypertension. c/w Home Metolazone and Bumex c/w Potassium supplements. Hypokalemia likely digoxin induced improved with supplementation CKD Creatinine at baseline DM2 Last HBA1C was 7.2 in August. c/w glipizide HLD c/w Lipitor COPD c/w Spiriva, Advair DVT Proph: Jenna Resident Physician Supervision Note: I interviewed and examined the patient. Discussed with Dr. Cm and agree with findings and plan as documented in the note. Any exceptions or clarifications are listed here: None Documented By: Samm Vogel feeling ok rates have been good wants to go home abiel noted nad breathing unlabored HR in mid 80's no pallor or icterus dig toxicity - resolved afib - follow off dig, titrate meds as needed, currently rates reasonable, appreciate cardiology input, stable for discharge, outpt PCP f/u in short order anticoagulated otherwise as above Total Time Spent: Less than 30 minutes This includes examination of the patient, discharge planning, medication reconciliation, and communication with other providers. Discharge Instructions Please refer to the electronic Patient Visit Report (Discharge Instructions) for additional information. Additional Copies To Thomas Maxwell M.D. Resident Tracking Resident Involvement: Resident Care Provided Care Provided: Adult Hospital Medicine
== END 2017-10-04 12:39 | disposition home health service (06) | DRG 309 ==
LOC: C.EDB 21:56 → C.2E 10-02 02:00 → ENRESERV 10-02 02:07
PROVIDERS: ADMIT Internal Medicine; ATTEND Family Medicine
DX: R00.1 Bradycardia, unspecified (principal); I13.0 Hypertensive heart and chronic kidney disease with heart failure and stage 1 through stage 4 chronic kidney disease, or unspecified chronic kidney disease; J96.11 Chronic respiratory failure with hypoxia; I50.42 Chronic combined systolic (congestive) and diastolic (congestive) heart failure; T46.0X5A Adverse effect of cardiac-stimulant glycosides and drugs of similar action, initial encounter; E11.22 Type 2 diabetes mellitus with diabetic chronic kidney disease; N18.3 Chronic kidney disease, stage 3 (moderate); I25.10 Atherosclerotic heart disease of native coronary artery without angina pectoris; I48.91 Unspecified atrial fibrillation; J44.9 Chronic obstructive pulmonary disease, unspecified; I27.20 Pulmonary hypertension, unspecified; I50.810 Right heart failure, unspecified; R11.0 Nausea; E78.5 Hyperlipidemia, unspecified; E87.6 Hypokalemia; Z79.01 Long term (current) use of anticoagulants; Z79.84 Long term (current) use of oral hypoglycemic drugs; Z79.899 Other long term (current) drug therapy; Z87.891 Personal history of nicotine dependence; Z99.81 Dependence on supplemental oxygen

== ENCOUNTER 2019-06-14 09:57 | Inpatient (IN) ==
[2019-06-14] MEDS ORDERED: CLOTRIMAZOLE 1% CR 15 GM TUBE EXT ONE (10:38)
--- NOTE | 2019-06-14 10:38 | Emergency Department Note ---
Entered by Yoselyn Lehman acting as a scribe for Dc Pimentel DO History of Present Illness General Chief complaint: Shortness of Breath/Dyspnea Stated complaint: weakness/chest discomfort Time Seen by Provider: 06/14/19 10:18 Source: patient and family () History of Present Illness Onset (ago): day(s) 2 Location: chest Pain Consistency: + other (persistent) Quality: + other (shortness of breath) Associated symptoms: + denies other symptoms (decreased intake) and + other (decreased mobility, swelling in lower extremities, congestion, constipation, infection under right breast, hypotension) The patient is a 83 year old female that is presenting to the Emergency Room with complaints of persistent shortness of breath over the past couple of days. The patients reports that the patient has had reduced mobility due to shortness of breath with exertion. Her notes that the patient has had frequent falls recently. The patient states that she has some swelling in her bilateral legs. She notes that she has been congested recently. She reports that she has had an infection under her right breast for the past month but denies re ceiving any treatment for it. The patient states that she has not had a bowel movement in 3-4 days and notes that she believes she has a bowel blockage. The patients notes that the patients blood pressure was 74/[address] ambulance on the way to the ED. The patient reports that she is on 3-4L O2 at home at baseline. She denies any decreased food or fluid intake recently. Home Medications Home Medications Medication Instructions Recorded Confirmed Type Hair, Skin, Nails with Biotin 1 tab PO DAILY 09/11/18 06/14/19 History Xarelto 15 mg PO QAM 09/11/18 06/14/19 History amiodarone 200 mg PO QAM 09/11/18 06/14/19 History atorvastatin 80 mg PO QAM 09/11/18 06/14/19 History bumetanide 1 mg PO 0800,1400 09/11/18 06/14/19 History potassium chloride 10 meq PO BID 09/11/18 06/14/19 History Allergies Allergy/AdvReac Type Severity Reaction Status Date / Time Insulins Allergy Severe syncope Verified 06/14/19 10:47 Past Med/Surg History Medical History Atrial fibrillation Chronic obstructive pulmonary disease NO INHALERS Diabetes mellitus, type 2 H/O. NO MEDICATIONS CURRENTLY History of cardioversion Hyperlipidemia Hypertension On home oxygen therapy 3LPM [place]IA [place] @ . Surgical History History of cardiac cath ~2008 & ~2016 AT [facility] History of cataract surgery History of heart artery stent X2 (~2008 & ~2015) Family History Mother Family history of diabetes mellitus Father Family history of diabetes mellitus Social History Preferred Language: Cypriot Communication Ability: Effective Recreational Vehicle Resort Manager Required: No Beliefs That Will Affect Care: None Current Living Situation: Spouse Feels Safe at Home: Yes Smoking Status: Former smoker Second Hand Exposure: No ; Hx Alcohol Use: No Hx Substance Use: No Review of Systems See HPI for pertinent positives & negatives. and A total of 10 systems reviewed and were otherwise negative Physical Exam Vital Signs Vital Signs - 24 hr 06/14/19 10:09 06/14/19 10:38 Temperature 36.7 C Temperature Source Oral Pulse Rate 50 L Respiratory Rate 18 Respiratory Effort / Characteristics Non-Labored Spontaneous Respiratory Depth Normal Respiratory Pattern Regular Blood Pressure 115/45 L Blood Pressure Mean 68 Pulse Oximetry 94 97 Oxygen Delivery Method Nasal Cannula Oxygen Flow Rate 4 4 Sepsis Recent Fever Within 48 Hours No Sepsis New/Unexplained Change in Mental Status No Sepsis Action Taken by Nursing No Action Required CONSTITUTIONAL/VITAL SIGNS: Reviewed / noted above. GENERAL: Non-toxic in appearance. INTEGUMENTARY: Warm, dry, and [place]. Redness and discharge from the area under the right breast with foul smell. HEAD: Normocephalic. EYES: without scleral icterus or trauma. ENT/OROPHARYNX: clear. Oropharynx is dry. LYMPHADENOPATHY/NECK: Is supple without lymphadenopathy or meningismus. RESPIRATORY: Lungs are diminished bilaterally. CARDIOVASCULAR: Regular rate and rhythm. GI/ABDOMEN: Soft and nontender. No organomegaly or pulsatile mass. No rebound or guarding. Normal bowel sounds. RECTAL: Light brown stool, guaiac positive. EXTREMITIES: Warm and well perfused. Bilateral lower extremity edema to the thighs. BACK: No CVA tenderness. NEUROLOGICAL: Intact without focal deficits. PSYCHIATRIC: normal affect. MUSCULOSKELETAL: Normally developed with good muscle tone. Course Course 1022:The patient was evaluated in room B03B. A complete history and physical examination was performed. 1245: I discussed the patients case with Dr. Zhao, [facility], who will evaluate the patient for further management and care. 1255: Upon reevaluation, the patient is resting comfortably. I performed a rectal exam at this time. I discussed laboratory and radiographic results with the patient. She verbalized agreement of the treatment plan. The patient will be evaluated for further management and care following a blood transfusion in the ED. Administered Medications Discontinued Medications Clotrimazole (Lotrimin 1%) 1 appln EXT NOW ONE Stop: 06/14/19 10:39 Last Admin: 06/14/19 12: Dose: 1 appln Documented by: [id number] Critical Care Time Critical Care Time: Yes Total Critical Care Time: 35 I have personally spent 35 minutes of critical care time in the direct management of this patient. This includes bedside care, interpretation of diagnostic studies, and testing, discussion with consultants, patient, and family members, and other required patient management activities. This 35 minutes is in excess of all separately billable procedures. Medical Decision Making Differential Diagnosis Differential includes acute coronary syndrome, myocardial infarction, CVA, TIA, anemia, infection, pneumonia, UTI, pyelonephritis, poor nutrition, dehydration, electrolyte disturbance,hypoglycemia. Medical Records Attestation: I reviewed the patient's medical records. Home Medications Current Medication List: was personally reviewed by me Laboratory Data Attestation: I reviewed the patient's lab results. Result diagrams: 06/14/19 11:42 06/14/19 11:42 Lab Results 06/14/19 06/14/19 06/14/19 Range/Units 11:42 11:42 11:42 WBC 8.33 (4.8-10.8) K/uL RBC 2.78 L (4.2-5.4) M/uL Hgb 7.4 L (12.0-16.0) g/dL Hct 26.1 L (37-47) % MCV 93.9 (80-100) fL MCH 26.6 (25-34) pg MCHC 28.4 L (32-36) g/dL RDW Std Deviation 58.4 H (36.4-46.3) fL RDW Coeff of Portia 17.0 H (11.5-14.5) % Plt Count 256 (130-400) K/uL MPV 10.3 (7.4-10.4) fL PT 20.6 H (9.0-12.0) Seconds INR 2.1 H (0.9-1.1) Sodium 142 (136-145) mmol/L Potassium 4.1 (3.5-5.1) mmol/L Chloride 105 (98-107) mmol/L Carbon Dioxide 34 H (21-32) mmol/L Anion Gap 3.0 (3-11) BUN 64 H (7-18) mg/dl Creatinine 2.00 H (0.6-1.2) mg/dl Est Cr Clr Drug Dosing 22.4 ml/min Est GFR ( Amer) 25.9 Est GFR (Non-Af Amer) 22.4 BUN/Creatinine Ratio 32.1 H (10-20) Glucose 114 H (70-99) mg/dl Lactate (0.4-2.0) mmol/L Calcium 8.9 (8.5-10.1) mg/dl Total Bilirubin 1.8 H (0.2-1) mg/dl AST 42 H (15-37) U/L ALT 43 (12-78) U/L Alkaline Phosphatase 210 H (45-117) U/L Total Creatine Kinase 86 (26-192) U/L Troponin I 0.044 (0-0.045) ng/ml NT-Pro-B Natriuret Pep 45151 H (0-1800) pg/ml Total Protein 6.7 (6.4-8.2) gm/dl Albumin 3.3 L (3.4-5.0) gm/dl Globulin 3.4 (2.5-4.0) gm/dl Albumin/Globulin Ratio 1.0 (0.9-2) TSH 0.471 (0.300-4.500) uIu/ml 06/14/19 Range/Units 11:42 WBC (4.8-10.8) K/uL RBC (4.2-5.4) M/uL Hgb (12.0-16.0) g/dL Hct (37-47) % MCV (80-100) fL MCH (25-34) pg MCHC (32-36) g/dL RDW Std Deviation (36.4-46.3) fL RDW Coeff of Portia (11.5-14.5) % Plt Count (130-400) K/uL MPV (7.4-10.4) fL PT (9.0-12.0) Seconds INR (0.9-1.1) Sodium (136-145) mmol/L Potassium (3.5-5.1) mmol/L Chloride (98-107) mmol/L Carbon Dioxide (21-32) mmol/L Anion Gap (3-11) BUN (7-18) mg/dl Creatinine (0.6-1.2) mg/dl Est Cr Clr Drug Dosing ml/min Est GFR ( Amer) Est GFR (Non-Af Amer) BUN/Creatinine Ratio (10-20) Glucose (70-99) mg/dl Lactate 2.2 H* (0.4-2.0) mmol/L Calcium (8.5-10.1) mg/dl Total Bilirubin (0.2-1) mg/dl AST (15-37) U/L ALT (12-78) U/L Alkaline Phosphatase (45-117) U/L Total Creatine Kinase (26-192) U/L Troponin I (0-0.045) ng/ml NT-Pro-B Natriuret Pep (0-1800) pg/ml Total Protein (6.4-8.2) gm/dl Albumin (3.4-5.0) gm/dl Globulin (2.5-4.0) gm/dl Albumin/Globulin Ratio (0.9-2) TSH (0.300-4.500) uIu/ml Imaging Data Radiologist's Impression: Radiology results as stated below per my review and the radiologist's interpretation: XR chest 1V portable HISTORY: 83 years-old Female weakness acute weakness COMPARISON: Chest radiograph 10/01/2017 TECHNIQUE: Portable AP view of the chest FINDINGS: Cardiac silhouette is enlarged, unchanged. Pulmonary vascular congestion with interstitial coarsening. Mild left hemidiaphragmatic elevation. No pneumothorax. Mild bibasilar opacities. Suggestion of trace pleural effusions. Degenerative changes of the shoulders and spine. IMPRESSION: 1. Cardiomegaly with mild pulmonary edema pattern. 2. Mild bibasilar densities suggest probable atelectasis. ACT 112: Negative or not required by law. The above report was generated using voice recognition software. It may contain grammatical, syntax or spelling errors. Electronically signed by: Dionisio Tenorio M.D. 06/14/2019 11:55 AM ECG Data Attestation: I personally reviewed and interpreted this ECG as follows: Indication: + weakness Rate (beats per minute): 55 Rhythm: + sinus bradycardia ECG Intervals/blocks: + Left bundle branch block ECG ST segments: no ST elevation ECG Findings: no PACs and no PVCs Blood Pressure Blood Pressure Findings: Low blood pressure MDM Narrative This is an 83-year-old female who presents the ED with a chief complaint of generalized weakness as well as frequent falls over the past 4 weeks. Increased shortness of breath with exertion. Decreased mobility. She has increased edema in her legs for the past few days to months. She reports no bowel movement for 4 days. She also reports infection under the right breast. Her exam reveals findings suggesting intertrigo under the right breast. There is some irritation or redness in that area. There is a foul smell and some discharge. The patient does have pretty significant pedal edema in the lower extremities. Her mouth appears to be dry. Her lungs are diminished. She is on home oxygen at 3 or 4 L. She is on this now and her saturations appear to be within normal limits. The patient's hemoglobin is 7.4. INR is 2.1. BUN is 64. Creatinine is 2. Troponin is negative. BNP is 13,290. Chest x-ray reveals some congestive ch anges. The stool was tested. It is light brown guaiac positive. The patient was given IV Protonix. Clotrimazole cream was placed under her breast. Vitamin K IV was given 10 mg. The patient's twelve-lead EKG shows what appears to be a sinus bradycardia with a left bundle branch block. The left bundle appears to be new. The patient's BUN is higher than baseline. Creatinine is near baseline. The patient will be seen by the hospitalist for further evaluation and care. Impression & Plan GI bleed, Anemia, CHRISTIANSON (dyspnea on exertion), Weakness, Elevated INR Discharge Plan Visit Data Chief Complaint: Shortness of Breath/Dyspnea Stated Complaint: weakness/chest discomfort ED Provider: Dc Pimentel Discharge Problem: GI bleed, Anemia, CHRISTIANSON (dyspnea on exertion), Weakness, Elevated INR Patient Disposition: Being Evaluated by Hospitalist Forms Stand Alone Forms: My [facility] Prescriptions Prescriptions: No Action atorvastatin 80 mg Tablet 80 mg PO QAM RF: 0 amiodarone 200 mg Tablet 200 mg PO QAM RF: 0 potassium chloride 10 mEq Tablet Extended Release 10 meq PO BID RF: 0 bumetanide 1 mg Tablet 1 mg PO 0800,1400 RF: 0 Xarelto 15 mg Tablet 15 mg PO QAM RF: 0 Hair, Skin, Nails with Biotin 7.5-7.5-1,250 mg-unit-mcg Tablet,Chewable 1 tab PO DAILY RF: 0 Referrals Referrals: Thomas Perez MD [Primary Care Provider] - Discharge Problem: GI bleed Qualifiers: GI bleed type/associated pathology: unspecified gastrointestinal hemorrhage type Qualified Code(s): K92.2 - Gastrointestinal hemorrhage, unspecified Anemia Qualifiers: Anemia type: unspecified type Qualified Code(s): D64.9 - Anemia, unspecified The scribe's documentation has been prepared under my direction and personally r eviewed by me in its entirety. I confirm that the note above accurately reflects all work, treatment, procedures, and medical decision making performed by me.
--- NOTE | 2019-06-14 11:56 | XRay Report ---
XR chest 1V portable HISTORY: 83 years-old Female weakness acute weakness COMPARISON: Chest radiograph 10/01/2017 TECHNIQUE: Portable AP view of the chest FINDINGS: Cardiac silhouette is enlarged, unchanged. Pulmonary vascular congestion with interstitial coarsening . Mild left hemidiaphragmatic elevation. No pneumothorax. Mild bibasilar opacities. Suggestion of tra ce pleural effusions. Degenerative changes of the shoulders and spine. IMPRESSION: 1. Cardiomegaly with mild pulmonary edema pattern. 2. Mild bibasilar densities suggest probable atelectasis. ACT 112: Negative or not required by law. The above report was generated using voice recognition software. It may contain grammatical, syntax o r spelling errors. Electronically signed by: Dionisio Tenorio M.D. 06/14/2019 11:55 AM
[2019-06-14 12:09] LABS: INR 2.1 (0.9-1.1); Prothrombin Time 20.6 Seconds (9.0-12.0)
[2019-06-14 12:21] LABS: Albumin Level 3.3 gm/dl (3.4-5.0); BUN Creatinine Ratio 32.1 (10-20); Calcium 8.9 mg/dl (8.5-10.1); Creatinine Clr Calc Pharmacy 22.4 ml/min; Est GFR (African American) 25.9; Est GFR (Non-African American) 22.4; Potassium 4.1 mmol/L (3.5-5.1)
[2019-06-14 12:28] LABS: Bilirubin,Total 1.8 mg/dl (0.2-1); Globulin 3.4 gm/dl (2.5-4.0); Thyroid Stimulating Hormone 0.471 uIu/ml (0.300-4.500); Total Protein 6.7 gm/dl (6.4-8.2); Troponin I 0.044 ng/ml (0-0.045)
[2019-06-14 12:35] LABS: Hematocrit (blood only) 26.1 % (37-47); Hemoglobin 7.4 g/dL (12.0-16.0); Mean Corpuscular Hemoglobin 26.6 pg (25-34); Mean Corpuscular Hgb Conc 28.4 g/dL (32-36); Mean Corpuscular Volume 93.9 fL (80-100); Mean Platelet Volume 10.3 fL (7.4-10.4); Platelet Count 256 K/uL (130-400); RDW Standard Deviation 58.4 fL (36.4-46.3); Red Blood Count 2.78 M/uL (4.2-5.4); White Blood Count 8.33 K/uL (4.8-10.8)
[2019-06-14] MEDS ORDERED: SODIUM CHLORIDE 0.9% 250 ML IV PRN (12:47)
[2019-06-14] MEDS ORDERED: PHYTONADIONE 10 MG in SODIUM CHLORIDE 0.9% 50 ML IV ONE (13:00)
[2019-06-14] MEDS ORDERED: PANTOprazole 80 MG in DEXTROSE 5% 100 ML IV ONE (13:00)
[2019-06-14 13:12] LABS: Acanthocytes 2+; Hypochromasia Present
[2019-06-14] MEDS ORDERED: PANTOprazole 40 MG in DEXTROSE 5% 100 ML IV SCH (13:15)
--- NOTE | 2019-06-14 13:17 | History & Physical Report ---
Date of Service June 14, 2019 Assessment & Plan (1) Right heart failure: I suspect patient's main issue with worsening dyspnea secondary to acute CHF. At this seems mostly right-sided and associated with severe pulmonary hypertension which is worsening. Patient takes Bumex 1 mg p.o. twice daily at home. We will increase this to Bumex 1 mg every 8 hours IV and monitor I's and O's. Also monitor daily weights. Continue supplemental oxygen. Continue other cardiac medications as ordered. We will ask cardiology to evaluate for further recommendations considering the patient's advanced issues. (2) HTN (hypertension): Patient is on atorvastatin which we will continue. She does not appear to be on a beta-mary, we will hold off on this secondary to bradycardia and mild hypotension. Patient is also on the low-dose aspirin which we will consider once anemia and bleeding concerns have been evaluated. (3) CAD (coronary artery disease): Cardiac medications as described above. Of note, patient has a left bundle branch block on EKG, unclear if this is new but not mentioned in previous cardiology notes. Will check troponins x3. Would consider repeating echo as well. Will defer this to cardiology when evaluated. (4) DM (diabetes mellitus): Does not appear to be on any medications at this time. Has noted allergy to insulin. Will check hemoglobin A 1C and follow blood sugars. (5) Acute renal insufficiency: Likely secondary to heart failure, question diabetic nephropathy as well. Will monitor closely as we diurese. (6) Moderate to severe pulmonary hypertension: Significant cor pulmonale, secondary to right heart failure versus advanced COPD that is oxygen dependent. May be very volume dependent and will need to monitor with blood pressure as we diurese. (7) Anemia: Patient has a normocytic anemia, possible etiology includes anemia chronic disease, renal dysfunction, and possible slow rectal bleeding. Patient is ordered 1 unit of packed red blood cells which I agree with as there may be a component of high-output heart failure. However, volume status is very tenuous in this patient and will need to follow closely for volume overload after transfusion. Patient is on Xarelto which we will hold for now. Check iron studies. Will ask GI to evaluate, patient would be considered high risk for any aggressive diagnostics in her current state. (8) Weakness: (9) GI bleed: Will hold blood thinners as noted. I will ask GI to evaluate. Follow H&H every 12 hours. (10) Elevated INR: Patient is on Xarelto which likely accounts for the elevated INR. Hold as noted above. (11) Atrial fibrillation: Continue amiodarone as ordered. I will hold Xarelto as noted above. Patient is currently rhythm controlled with antiarrhythmic. History of Present Illness Primary Care Provider: Thomas Perez MD This is an 83-year-old female with past medical history of coronary disease status post recent stents, hypertension, diabetes, right-sided heart failure that presents today complaining of shortness of breath and multiple falls. Patient is a decent historian and is alone in the room. Patient tells me that over the past month she has not been feeling well. She mcdonough s noticed worsening weakness as well as progressive dyspnea on exertion. She does have a history of COPD and uses home oxygen but feels this has not been helping recently. She denies any chest pain but does note some abdominal "tightness ". She has diminished appetite but bowel movements and urination have been normal. She states she is "cold all the time "but denies any overt fevers or chills. She is also complaining worsening lower extremity edema which is now moved into her upper thigh region bilaterally. She does feel she has gained weight but did not weigh herself at home prior. She did note the symptoms have been progressive for several weeks but did not want come to the hospital until after Nina which is why she is presenting on 06/14. Of note, on further questioning the patient states that she had a fall approximately 1 week ago. She fell in the shower. She did strike her head or lose consciousness. She lives with her who had to help her. She did not seek medical attention at that time. At time of evaluation, the patient seems to be in no acute distress. She is on supplemental oxygen. Is unclear what her O2 sat is as she has poor waveform with headband and finger probe. Her blood pressures in the low 100s. Heart rate is in the 50s and appears to be normal sinus rhythm. Sinus bradycardia. To be sinus bradycardia. Allergies Allergy/AdvReac Type Severity Reaction Status Date / Time Insulins Allergy Severe syncope Verified 06/14/19 10:47 Home Medications Home Medications Medication Instructions Recorded Confirmed Type Hair, Skin, Nails with Biotin 1 tab PO DAILY 09/11/18 06/14/19 History Xarelto 15 mg PO QAM 09/11/18 06/14/19 History amiodarone 200 mg PO QAM 09/11/18 06/14/19 History atorvastatin 80 mg PO QAM 09/11/18 06/14/19 History bumetanide 1 mg PO 0800,1400 09/11/18 06/14/19 History potassium chloride 10 meq PO BID 09/11/18 06/14/19 History Past Med/Surg History Medical History Atrial fibrillation Chronic obstructive pulmonary disease NO INHALERS Diabetes mellitus, type 2 H/O. NO MEDICATIONS CURRENTLY History of cardioversion Hyperlipidemia Hypertension On home oxygen therapy 3LPM VIA [place] @ . Surgical History History of cardiac cath ~2008 & ~2015 AT [facility] History of cataract surgery History of heart artery stent X2 (~2008 & ~2015) Family History Mother Family history of diabetes mellitus Father Family history of diabetes mellitus Social History Preferred Language: French Communication Ability: Effective City Administrator Required: No Beliefs That Will Affect Care: None Current Living Situation: Spouse Feels Safe at Home: Yes Smoking Status: Former smoker Second Hand Exposure: No ; Hx Alcohol Use: No Hx Substance Use: No Review of Systems Review of Systems: All systems reviewed & are unremarkable except as noted in HPI & below Constitutional: + chills, + fatigue and + weakness; no fever and no sweats Ear, Nose, Mouth, Throat: as per Subjective / HPI Respiratory: + dyspnea on exertion; no cough, no chest congestion, no pain with cough, no sputum production and no wheezing Cardiovascular: + dyspnea and + edema; no chest pain, no chest pain at rest, no orthopnea, no palpitations and no syncope Gastrointestinal: + abdominal pain and + early satiety; no nausea, no vomiting, no constipation, no diarrhea/loose stools and no blood in stools Genitourinary: no dysuria, no difficulty urinating, no urinary frequency, no urinary hesitancy and no urinary urgency Musculoskeletal: as per Subjective / HPI Integumentary: + rash Neurologic: + unsteadiness and + falls Psychiatric: as per Subjective / HPI Physical Exam Constitutional: well nourished, cooperative and + overweight; no acute distress ENMT: Mouth: oral mucous membranes not dry Neck: normal visual inspection Respiratory: normal respiratory effort; no dullness to percussion Auscultation: + crackles and + rales; no rhonchi and no wheezes Cardiovascular: Rate/Rhythm: + bradycardic Heart Sounds: normal S1 and normal S2 Vessels: no JVD and no carotid bruit Extremities: + edema (3+ edema to bilateral thighs) Gastrointestinal (Abdomen): Inspection/Auscultation: abdomen normal to inspection Percussion/Palpation: abdomen soft; abdomen nontender, no guarding and abdomen not rigid Rectal Exam: + heme positive stool Skin: Intertrigo under breasts, right much worse than left Psychiatric: A+Ox3, euthymic affect Results & Data Vital Signs (Past 12 Hours) Vital Signs Temp Pulse Resp BP Pulse Ox 06/14/19 10:38 97 06/14/19 10:09 36.7 C 50 L 18 115/45 L 94 Laboratory Results Hemoglobin is 7.4. Previous lab work from approximately year ago shows hemoglobin 12.8. INR is 2.1. Creatinine is 2 which seems to be higher than baseline. Glucose is 114. Lactate is 2.2. 2 bilirubin is 1.8 with an AST of 42 and an ALT of 43. BNP is 13,290. TSH is 0.471 but I see she does have a history of previous elevated TSH 121. I did review old studies. Echocardiogram from 04/20/2019 shows normal LVEF of 55 to 60%. She has severely dilated right ventricle with reduced systolic function and estimated RV pressure of 87 mmHg. This is worsened compared to a previous study. Diagnostic Findings XR chest 1V portable HISTORY: 83 years-old Female weakness acute weakness COMPARISON: Chest radiograph 10/01/2017 TECHNIQUE: Portable AP view of the chest FINDINGS: Cardiac silhouette is enlarged, unchanged. Pulmonary vascular congestion with interstitial coarsening. Mild left hemidiaphragmatic elevation. No pneumothorax. Mild bibasilar opacities. Suggestion of trace pleural effusions. Degenerative changes of the shoulders and spine. IMPRESSION: 1. Cardiomegaly with mild pulmonary edema pattern. 2. Mild bibasilar densities suggest probable atelectasis. PG Care Time/CCT Total # of Minutes Spent Total Time Spent with Patient: Total time spent is greater than 50% in coordination of care (as documented) at patient's floor/unit and/or counseling patient: (1) GI bleed GI bleed type/associated pathology: unspecified gastrointestinal hemorrhage type Qualified Code(s): K92.2 - Gastrointestinal hemorrhage, unspecified (2) Anemia Anemia type: unspecified type Qualified Code(s): D64.9 - Anemia, unspecified
[2019-06-14] MEDS ORDERED: DEXTROSE 50% 50 ML SYRINGE IV PRN (16:10)
[2019-06-14] MEDS ORDERED: CARBOHYDRATES FOR HYPOGLYCEMIA PO PRN (16:10)
[2019-06-14] MEDS ORDERED: GLUCOSE 10 TABS/TUBE PO PRN (16:10)
[2019-06-14] MEDS ORDERED: GLUCAGON FOR INJ 1 MG VIAL SQ PRN (16:10)
[2019-06-14] MEDS ORDERED: GLUCOSE 40% GEL 15 GM TUBE PO PRN (16:10)
[2019-06-14] MEDS ORDERED: ONDANSETRON INJ 2 MG/ML 2 ML VIAL IV PRN (16:10)
[2019-06-14] MEDS ORDERED: PHARMACY GLYCEMIC MGMT CONSULT PRN (16:20)
[2019-06-14] MEDS: BUMETANIDE 1 MG in SYRINGE 0 ML IV SCH (17:03)
[2019-06-14 17:44] LABS: Iron 28 mcg/dl (35-150); Total Iron Binding Capacity 291 mcg/dl (250-450)
[2019-06-14] MEDS: POTASSIUM CHLORIDE 10 MEQ TABCR PO SCH (20:27)
[2019-06-15] MEDS: BUMETANIDE 1 MG in SYRINGE 0 ML IV SCH ×3 (01:49→17:01)
[2019-06-15 04:56] LABS: Magnesium 2.7 mg/dl (1.8-2.4)
[2019-06-15 04:57] LABS: BUN Creatinine Ratio 30.4 (10-20); Calcium 8.5 mg/dl (8.5-10.1); Creatinine Clr Calc Pharmacy 22.4 ml/min; Est GFR (African American) 26.1; Est GFR (Non-African American) 22.5; Troponin I 0.041 ng/ml (0-0.045)
[2019-06-15 06:38] LABS: Basophils # (auto) 0.05 K/uL (0-0.2); Basophils % (auto) 0.6 %; Eosinophils # (auto) 0.09 K/uL (0-0.5); Eosinophils % (auto) 1.1 %; Hemoglobin 8.2 g/dL (12.0-16.0); Immature Granulocytes # (auto) 0.02 K/uL (0.00-0.02); Immature Granulocytes % (auto) 0.2 %; Lymphocytes # (auto) 1.86 K/uL (1.2-3.4); Lymphocytes % (auto) 22.4 %; Mean Corpuscular Hemoglobin 26.9 pg (25-34); Mean Corpuscular Hgb Conc 29.3 g/dL (32-36); Mean Corpuscular Volume 91.8 fL (80-100); Mean Platelet Volume 10.3 fL (7.4-10.4); Monocytes # (auto) 1.04 K/uL (0.11-0.59); Monocytes % (auto) 12.5 %; Neutrophils # (auto) 5.25 K/uL (1.4-6.5); Neutrophils % (auto) 63.2 %; Nucleated RBC # (auto) 0.09 K/uL (0-0); Nucleated RBC % (auto) 1.1 %; Platelet Count 235 K/uL (130-400); RDW Coefficient of Variation 17.5 % (11.5-14.5); RDW Standard Deviation 59.1 fL (36.4-46.3); Red Blood Count 3.05 M/uL (4.2-5.4); White Blood Count 8.31 K/uL (4.8-10.8)
[2019-06-15 07:08] LABS: Estimated Average Glucose 131 mg/dl; Hemoglobin A1C 6.2 % (4.5-5.6)
[2019-06-15 07:29] LABS: Appearance Urine Cloudy (Clear); Bacteria Urine Automated 4+ (Negative); Bilirubin Urine Negative (Negative); Blood Urine 3+ (Negative); Color Urine Yellow; Glucose Urine UA Negative (Negative); Ketones Urine Negative (Negative); Leukocyte Esterase Urine 2+ (Negative); Nitrite Urine Negative (Negative); Protein Urine Trace (Negative); RBC Urine Automated >30 /hpf (0-4); Urobilinogen Urine Negative (Negative); WBC Urine Automated >30 /hpf (0-5)
[2019-06-15] MEDS: POTASSIUM CHLORIDE 10 MEQ TABCR PO SCH ×2 (07:55→21:26)
[2019-06-15] MEDS: AMIODARONE 200 MG TAB PO SCH (07:55)
[2019-06-15] MEDS: ATORVASTATIN 40 MG TAB PO SCH (07:55)
[2019-06-15] MEDS ORDERED: NON-FORMULARY MEDICATION (Ascorbic Acid-Vitamin E-Biotin [Hair, Skin, Nails With Biotin] 1 PO SCH (09:00)
--- NOTE | 2019-06-15 09:00 | Cardiology Consultation ---
Date of Consultation June 15, 2019 Assessment & Plan (1) CHF (congestive heart failure): She certainly has congestive heart failure with evidence of right heart failure on exam and echocardiography, however she may also have some component of left heart failure with diastolic dysfunction. She does not have systolic dysfunction. She will need ongoing diuresis and has significant fluid overload. Hopefully we will be able to diurese her without affecting her kidney function. It sounds as though she was doing well about a month ago, suggesting that this is not an ongoing difficulty but her recent decompensation. (2) CHRISTIANSON (dyspnea on exertion): She has had a lot of difficulty with dyspnea on exertion over the last month, this may be multifactorial including her anemia, her heart failure and fluid retention. We can see if this improves substantially with diuresis. If it is due to her lung disease there is probably little that can be done. (3) Anemia: She had a significant blood loss although we do not have laboratory studies over the last year that I can see. I do not know the duration, she is not having bowel movements so we cannot tell if she has had a recent GI blood loss. It is possible that this occurred over the last month that is 1 of the reason she is having as much difficulty with exertion as she is experiencing. Over the long run she should be on an anticoagulant but since she is sinus rhythm now I agree with holding it. (4) Atrial fibrillation: She has atrial fibrillation, it sounds as though she had a relatively recently because she was given some sort of pill by Dr. Perez although she does not know what it is, evidently this was given to her because her heart rate was fast. Here she is remained in sinus rhythm and I would continue amiodarone. (5) Moderate to severe pulmonary hypertension: She has a longstanding history of pulmonary hypertension. This may improve with diuresis, although will still be present. This is probably secondary to her lung disease and therefore there is little that can be done. Hopefully this will return to her baseline. History of Present Illness Attending Physician: Jose Hung MD History of Present Illness This is an 83-year-old woman who has a history of diabetes mellitus, hypertension as well as coronary artery disease identified June 25, 2014 at catheterization. By her recollection she has had stent placement at [facility] on 2 occasions in the past. She also has a history of atrial fibrillation which was identified when she presented August 24, 2017 with GI symptoms. This was paroxysmal and she converted spontaneously to sinus rhythm. She did however note that she had an elevated heart rate when she uses her pulse oximeter from time to time prior to that, but does not have palpitations, therefore probably had paroxysmal atrial fibrillation. We did have some difficulty in controlling her heart rate even with high doses of oral medications therefore amiodarone was instituted. She was discharged in August 2017 on amiodarone 400 mg daily, digoxin 0.125 mg daily and diltiazem 240 mg daily as well as metoprolol succinate 100 mg daily. She was anticoagulated with Xarelto 15 mg daily at that time. She then presented in mid September 2017 with bradycardia and a digoxin level of 3.1 for which she received Digibind. She was in atrial fibrillation at the time. She was discharged from that hospitalization it did not show up for her follow-up in October 2017 therefore we have not seen her in the office since. She has a history of severe pulmonary hypertension. This was identified as far back as her first echocardiogram in June 2014 where she had a severely dilated right ventricle, right atrium and a dilated IVC. She did have an echocardiogram done April 20, 2019 where she had normal left ventricular size and function with no wall motion abnormalities, she did have septal flattening consistent with right ventricular pressure and volume overload as well as a severely dilated right ventricle with severe systolic dysfunction of the right ventricle. The right atrium was severely dilated and she had severe pulmonary hypertension. Her pulmonary pressures were slightly higher than on prior echocardiograms. She now presents with shortness of breath and difficulty with exertion as well as weakness and signs of fluid overload, apparently that has been going on for perhaps a month but has been worse over the last several days prior to admission. She does have continuous oxygen at home, reported at 3 to 4 L, although up until a month ago she tells me she could take it off now and then when she walked around the house. Evaluation here is notable for significant anemia (hemoglobin 7.4 on presentation, 12.8 a year ago), she had acute on chronic kidney injury with a creatinine of about 2, although in the past it has been in the mid to upper 1 range, 1.93 on April 17, 2019. She has had elevated creatinines in the past as high as 2.5 in November 2017. Troponin measurements were not elevated. Her electrocardiogram shows sinus bradycardia at 55 bpm with a right bundle branch block and a very wide QRS complex at 190 ms. I do not believe we have an electrocardiogram in our records since October 01, 2017 when she was in atrial fibrillation. Her chest x-ray was suggestive of mild pulmonary edema. Her home medications are reported to be amiodarone 200 mg daily, atorvastatin 80 mg daily, Xarelto 15 mg daily as well as diuretics and potassium. She is currently not on Xarelto since admission. Allergies Allergy/AdvReac Type Severity Reaction Status Date / Time Insulins Allergy Severe syncope Verified 06/14/19 10:47 Home Medications Home Medications Medication Instructions Recorded Confirmed Type Hair, Skin, Nails with Biotin 1 tab PO DAILY 09/11/18 06/14/19 History Xarelto 15 mg PO QAM 09/11/18 06/14/19 History amiodarone 200 mg PO QAM 09/11/18 06/14/19 History atorvastatin 80 mg PO QAM 09/11/18 06/14/19 History bumetanide 1 mg PO 0800,1400 09/11/18 06/14/19 History potassium chloride 10 meq PO BID 09/11/18 06/14/19 History Patient History Medical History Atrial fibrillation Chronic obstructive pulmonary disease NO INHALERS Diabetes mellitus, type 2 H/O. NO MEDICATIONS CURRENTLY History of cardioversion Hyperlipidemia Hypertension On home oxygen therapy 3LPM VIA [place] @ . Surgical History History of cardiac cath ~2008 & ~2015 AT [facility] History of cataract surgery History of heart artery stent X2 (~2008 & ~2015) Family History Mother Family history of diabetes mellitus Father Family history of diabetes mellitus Social History Preferred Language: Macedonian Communication Ability: Effective Captain Waiter Required: No Beliefs That Will Affect Care: None Current Living Situation: Spouse Other Information That Helps Us Care for You: No Feels Safe at Home: Yes Safety Concerns: Feels Safe At This Time Smoking Status: Former smoker Second Hand Exposure: Yes ; Tobacco Cessation Education Requested by Patient: No Hx Alcohol Use: No Hx Substance Use: No Review of Systems Review of Systems: All systems reviewed & are unremarkable except as noted in HPI & below Physical Exam Physical Exam: Constitutional: Alert, cooperative and in no distress. She is sitting at her bedside. HEENT: Unremarkable Neck: No jugular venous distention, carotid pulses are normal and equal bilaterally without bruits. Pulmonary: Clear to auscultation bilaterally but with somewhat decreased breath sounds at the bases. Cardiac: Regular rhythm with no murmur, gallop or rub. Abdomen: Soft, nontender with normal bowel sounds. Extremities: +3 bilateral pitting edema. Distal pulses intact. Neurologic: No focal findings. Gait was not tested. Skin: No rash, ecchymoses or petechiae. Results & Data Vital Signs (Past 12 Hours) Vital Signs Temp Pulse Resp BP Pulse Ox 06/15/19 08:00 36.4 C L 60 20 117/58 L 97 06/15/19 03:53 36.3 C L 61 20 101/56 L 93 06/14/19 23:01 36.5 C 56 L 20 111/57 L 93 Laboratory Results Cardiac Enzymes 06/14/19 06/14/19 06/14/19 Range/Units 11:42 16:37 22:12 AST 42 H (15-37) U/L Troponin I 0.044 0.044 0.044 (0-0.045) ng/ml 06/15/19 Range/Units 04:15 AST (15-37) U/L Troponin I 0.041 (0-0.045) ng/ml Coagulation 06/14/19 Range/Units 11:42 PT 20.6 H (9.0-12.0) Seconds Lipids 06/15/19 Range/Units 04:15 Triglycerides 61 (0-150) mg/dl Cholesterol 56 (0-200) mg/dl HDL Cholesterol 26 mg/dl Cholesterol/HDL Ratio 2 CBC 06/14/19 06/15/19 Range/Units 11:42 06:10 WBC 8.33 8.31 (4.8-10.8) K/uL RBC 2.78 L 3.05 L (4.2-5.4) M/uL Hgb 7.4 L 8.2 L (12.0-16.0) g/dL Hct 26.1 L 28.0 L (37-47) % Plt Count 256 235 (130-400) K/uL Neut # (Auto) 5.25 (1.4-6.5) K/uL Lymph # (Auto) 1.86 (1.2-3.4) K/uL Webb # (Auto) 1.04 H (0.11-0.59) K/uL Eos # (Auto) 0.09 (0-0.5) K/uL Baso # (Auto) 0.05 (0-0.2) K/uL Comprehensive Metabolic Panel 06/14/19 06/15/19 Range/Units 11:42 04:15 Sodium 142 141 (136-145) mmol/L Potassium 4.1 5.0 D (3.5-5.1) mmol/L Chloride 105 105 (98-107) mmol/L Carbon Dioxide 34 H 33 H (21-32) mmol/L BUN 64 H 61 H (7-18) mg/dl Creatinine 2.00 H 1.99 H (0.6-1.2) mg/dl Glucose 114 H 113 H (70-99) mg/dl Calcium 8.9 8.5 (8.5-10.1) mg/dl AST 42 H (15-37) U/L ALT 43 (12-78) U/L Alkaline Phosphatase 210 H (45-117) U/L Total Protein 6.7 (6.4-8.2) gm/dl Albumin 3.3 L (3.4-5.0) gm/dl Intake and Output 06/14/19 06/15/19 06/15/19 22:59 06:59 14:59 Intake Total 482 / 732 250 / 732 Output Total 675 / 1325 650 / 1325 Balance -193 / -593 -400 / -593 Intake: IV 200 / 200 Protonix 40 mg In D5 100 ml @ 29 / 29 20 mls/hr IV Q5H [facility] Rx#: [id number] Protonix 80 mg In D5 100 ml @ 120 / 120 480 mls/hr IV NOW ONE Rx#: [id number] Aqua-Mephyton 10 mg In Nss 50 51 / 51 ml @ 102 mls/hr IV ONE ONE Rx#: [id number] Oral 250 / 250 Intake (Blood Product) Amt 282 / 282 Packed Cells, Leukoreduced 282 / 282 Unit [id number] Output: Urine Amount (Catheter) 675 / 1325 650 / 1325 Ying/Indwelling 675 / 1325 650 / 1325 Other: Weight 93.4 kg 93.1 kg Diagnostic Findings Telemetry: Sinus rhythm and sinus bradycardia, heart rate generally in the 60s. No atrial fibrillation since admission. PG Care Time/CCT Total # of Minutes Spent Total Time Spent with Patient: Total time spent is greater than 50% in coordination of care (as documented) at patient's floor/unit and/or counseling patient: (1) Anemia Anemia type: unspecified type Qualified Code(s): D64.9 - Anemia, unspecified
--- NOTE | 2019-06-15 12:25 | Gastrointestinal Consultation ---
Date of Consultation June 15, 2019 Assessment & Plan (1) Anemia: iron deficient, no overt GI bleeding at this time, she is also high risk for any endoscopic procedure. Recs: 1. supportive care, trend H/H daily 2.start iron supplementation (ferrous sulfate TID vs. IV iron infusions) 3.rest as per primary team History of Present Illness Attending Physician: Jose Hung MD 83 yo female with extensive past medical history including CHF and CAD and DM2 here with dyspnea and s/p multiple falls. GI consulted for anemia. On admission hgb was 7.4, previously normal around 12.5 in may 2018. Noted to be iron deficient this admission as well. No prior EGD/colonoscopy. Denies overt GI bleeding, hematochezia, hematemesis. Notes fatigue, denies epistaxis. Does note easy bruising since being on xarelto. Denies any syncope, lightheadedness at this time. Labs as above, no pertinent imaging to review, no prior egd/colonoscopy. Allergies Allergy/AdvReac Type Severity Reaction Status Date / Time Insulins Allergy Severe syncope Verified 06/14/19 10:47 Home Medications Home Medications Medication Instructions Recorded Confirmed Type Hair, Skin, Nails with Biotin 1 tab PO DAILY 09/11/18 06/14/19 History Xarelto 15 mg PO QAM 09/11/18 06/14/19 History amiodarone 200 mg PO QAM 09/11/18 06/14/19 History atorvastatin 80 mg PO QAM 09/11/18 06/14/19 History bumetanide 1 mg PO 0800,1400 09/11/18 06/14/19 History potassium chloride 10 meq PO BID 09/11/18 06/14/19 History Patient History Medical History Atrial fibrillation Chronic obstructive pulmonary disease NO INHALERS Diabetes mellitus, type 2 H/O. NO MEDICATIONS CURRENTLY History of cardioversion Hyperlipidemia Hypertension On home oxygen therapy 3LPM VIA [place] @ . Surgical History History of cardiac cath ~2008 & ~2015 AT [facility] History of cataract surgery History of heart artery stent X2 (~2008 & ~2015) Family History Mother Family history of diabetes mellitus Father Family history of diabetes mellitus Social History Preferred Language: Turkmen Communication Ability: Effective Acute Care Surgeon Required: No Beliefs That Will Affect Care: None Current Living Situation: Spouse Other Information That Helps Us Care for You: No Feels Safe at Home: Yes Safety Concerns: Feels Safe At This Time Smoking Status: Former smoker Second Hand Exposure: Yes ; Tobacco Cessation Education Requested by Patient: No Hx Alcohol Use: No Hx Substance Use: No Review of Systems Constitutional: no fever, no chills and no weight loss Eyes: as per Subjective / HPI Ear, Nose, Mouth, Throat: as per Subjective / HPI Respiratory: no dyspnea and no dyspnea on exertion Cardiovascular: no chest pain and no palpitations Gastrointestinal: as per Subjective / HPI Musculoskeletal: no joint pain and no swelling Integumentary: no rash and no lesions Neurologic: no numbness and no paresthesia Psychiatric: no depression and no anxiety Endocrine: no fatigue Hematologic / Lymphatic: no easy bleeding and no easy bruising Physical Exam Constitutional: WD/WN, vitals as above Eyes: EOM intact bilaterally Neck: normal visual inspection Respiratory: normal respiratory effort, lungs clear to auscultation Cardiovascular: RRR, no murmur, no edema Gastrointestinal (Abdomen): Inspection/Auscultation: abdomen normal to inspection; abdomen not distended Percussion/Palpation: abdomen soft; abdomen nontender and no hepatosplenomegaly Musculoskeletal: Extremities: no cyanosis Gait: normal gait Skin: no rashes, warm and dry Neurologic: moves all extremities Psychiatric: A+Ox3, euthymic affect Results & Data Vital Signs (Past 12 Hours) Vital Signs Temp Pulse Pulse Resp BP Pulse Ox 06/15/19 08:00 36.4 C L 64 60 20 117/58 L 97 06/15/19 03:53 36.3 C L 61 20 101/56 L 93 PG Care Time/CCT Total # of Minutes Spent Total Time Spent with Patient: Total time spent is greater than 50% in coordination of care (as documented) at patient's floor/unit and/or counseling patient: (1) Anemia Anemia type: unspecified type Qualified Code(s): D64.9 - Anemia, unspecified
--- NOTE | 2019-06-15 15:40 | Hospitalist Progress Note ---
Date of Service June 15, 2019 Assessment & Plan (1) Right heart failure: Acute on chronic CHF. Mostly right-sided and associated with severe pulmonary hypertension which is worsening. - Continue Bumex IV - Monitor I's and O's. Also monitor daily weights. - Continue supplemental oxygen. - Cardiology consulted - Appreciate recs (2) HTN (hypertension): BP 90/60 today. - Holding beta-mary due to bradycardia and mild hypotension. (3) CAD (coronary artery disease): Cardiac medications as described above. Of note, patient has a left bundle branch block on EKG, unclear if this is new but not mentioned in previous cardiology notes. - Troponins negative at 0.04 x 3; no chest pain. (4) DM (diabetes mellitus): A1c was 6.2% on 06/15/2019. Does not appear to be on any medications at this time. Has noted allergy to insulin. - Follow blood sugars (5) CKD (chronic kidney disease) stage 4, GFR 15-29 ml/min: Baseline Cr ~1.7-2.0, eGFR ~20. - Presently at baseline. - Monitor (6) Anemia: Hgb was in the 14 range last year, but hgb has been substantially lower this admission. - Anemia labs tomorrow AM - Monitor (7) Atrial fibrillation: Presently rate-controlled. - Continue amiodarone - Hold Xarelto as noted above - Restart as able (8) Elevated INR: Patient is on Xarelto which likely accounts for the elevated INR. Hold as noted above. - Recheck INR tomorrow Subjective Feeling better today. Still has some shortness of breath. Reports no fevers/chills, chest pain, abdominal pain, nausea, or vomiting. Physical Exam Constitutional: WD/WN, vitals as above Eyes: EOM intact bilaterally; no conjunctival abnormality ENMT: external ear and nose normal, oropharynx normal Neck: trachea midline, no thyromegaly normal visual inspection Respiratory: normal respiratory effort, lungs clear to auscultation no respiratory distress Cardiovascular: RRR, no murmur, no edema Gastrointestinal (Abdomen): Inspection/Auscultation: abdomen normal to inspection; abdomen not distended Musculoskeletal: no cyanosis or clubbing, extremities motor strength 5/5 Skin: no rashes, warm and dry Neurologic: moves all extremities and awake Psychiatric: Orientation: alert, oriented to person and cooperative Results & Data Vital Signs (Past 12 Hours) Vital Signs Temp Pulse Pulse Resp BP Pulse Ox 06/15/19 12:48 36.5 C 61 18 93/58 L 97 06/15/19 08:00 36.4 C L 64 60 20 117/58 L 97 06/15/19 03:53 36.3 C L 61 20 101/56 L 93 PG Care Time/CCT Total # of Minutes Spent Total Time Spent with Patient: Total time spent is greater than 50% in coordination of care (as documented) at patient's floor/unit and/or counseling patient: (1) Anemia Anemia type: unspecified type Qualified Code(s): D64.9 - Anemia, unspecified
[2019-06-16] MEDS: BUMETANIDE 1 MG in SYRINGE 0 ML IV SCH ×2 (00:49→07:46)
[2019-06-16 06:01] LABS: Hematocrit (blood only) 27.3 % (37-47); Immature Retic Fraction 17.2 % (3.0-15.9); Mean Corpuscular Hemoglobin 26.5 pg (25-34); Mean Corpuscular Hgb Conc 29.3 g/dL (32-36); Mean Corpuscular Volume 90.4 fL (80-100); Mean Platelet Volume 10.2 fL (7.4-10.4); Nucleated RBC # (auto) 0.04 K/uL (0-0); Nucleated RBC % (auto) 0.5 %; Platelet Count 179 K/uL (130-400); RDW Coefficient of Variation 17.3 % (11.5-14.5); RDW Standard Deviation 57.4 fL (36.4-46.3); Red Blood Count 3.02 M/uL (4.2-5.4); Reticulated Hemoglobin 16.9 pg (28.2-36.6); Reticulocyte % 2.9 % (0.5-2.0); Reticulocytes # 0.09 10^6/uL (0.02-0.10); White Blood Count 8.78 K/uL (4.8-10.8)
[2019-06-16 06:32] LABS: BUN Creatinine Ratio 27.1 (10-20); Calcium 8.7 mg/dl (8.5-10.1); Creatinine Clr Calc Pharmacy 22.2 ml/min; Est GFR (African American) 25.9; Est GFR (Non-African American) 22.4; Magnesium 2.4 mg/dl (1.8-2.4)
[2019-06-16 06:36] LABS: Phosphorus 3.2 mg/dl (2.5-4.9)
[2019-06-16 06:42] LABS: INR 1.3 (0.9-1.1); Prothrombin Time 13.1 Seconds (9.0-12.0)
[2019-06-16 07:16] LABS: Potassium 3.8 mmol/L (3.5-5.1)
[2019-06-16] MEDS: ATORVASTATIN 40 MG TAB PO SCH (07:45)
[2019-06-16] MEDS: AMIODARONE 200 MG TAB PO SCH (07:46)
[2019-06-16] MEDS: POTASSIUM CHLORIDE 10 MEQ TABCR PO SCH ×2 (07:46→19:45)
[2019-06-16 09:25] LABS: Folate (Folic Acid) 14.06 ng/ml (>5.38)
--- NOTE | 2019-06-16 12:00 | Cardiology Progress Note ---
Date of Service June 16, 2019 Assessment & Plan (1) CHF (congestive heart failure): She certainly has congestive heart failure with evidence of right heart failure on exam and echocardiography, however she may also have some component of left heart failure with diastolic dysfunction. She does not have systolic dysfunction. She will need ongoing diuresis and has significant fluid overload, she is really not had much weight loss during her hospitalization. Hopefully we will be able to diurese her without affecting her kidney function, her creatinine has remained around 2 but may improve with diuresis. It sounds as though she was doing well about a month ago, suggesting that this is not an ongoing difficulty but a recent decompensation. (2) CHRISTIANSON (dyspnea on exertion): She has had a lot of difficulty with dyspnea on exertion over the last month, this may be multifactorial including her anemia, her heart failure and fluid retention. We can see if this improves substantially with diuresis. If it is due to her lung disease there is probably little that can be done. (3) Anemia: She had a significant blood loss although we do not have laboratory studies over the last year that I can see. I do not know the duration, she is not having bowel movements so we cannot tell if she has had a recent GI blood loss. It is possible that this occurred over the last month that is one of the reason she is having as much difficulty with exertion as she is experiencing. Over the long run she should be on an anticoagulant but since she is sinus rhythm now I agree with holding it. (4) Atrial fibrillation: She has atrial fibrillation, it sounds as though she had a relatively recently because she was given some sort of pill by Dr. Perez although she does not know what it is, evidently this was given to her because her heart rate was fast. Here she has remained in sinus rhythm and I would continue amiodarone. (5) Moderate to severe pulmonary hypertension: She has a longstanding history of pulmonary hypertension. This may improve with diuresis, although will still be present. This is probably sec ondary to her lung disease and therefore there is little that can be done. Hopefully this will return to her baseline. Subjective She is feeling well today, she is sitting at her bedside and has no cardiovascular symptoms. She does note ongoing leg edema. Physical Exam Physical Exam: Constitutional: Alert, cooperative and in no distress. Pulmonary: Clear to auscultation bilaterally. Cardiac: Regular rhythm with no murmur, gallop or rub. Abdomen: Soft, nontender with normal bowel sounds. Extremities: +3 bilateral pretibial pitting edema. Skin: No rash, ecchymoses or petechiae. Results & Data Vital Signs (Past 12 Hours) Vital Signs Temp Pulse Pulse Resp BP Pulse Ox 06/16/19 10:50 36.4 C L 74 19 95/59 L 92 06/16/19 08:00 63 06/16/19 07:49 36.7 C 66 14 105/62 97 06/16/19 03:03 36.6 C 66 20 111/67 99 06/16/19 00:05 36.3 C L 69 22 107/56 L 93 Laboratory Results Coagulation 06/16/19 Range/Units 05:27 PT 13.1 H (9.0-12.0) Seconds CBC 06/16/19 Range/Units 05:27 WBC 8.78 (4.8-10.8) K/uL RBC 3.02 L (4.2-5.4) M/uL Hgb 8.0 L (12.0-16.0) g/dL Hct 27.3 L (37-47) % Plt Count 179 (130-400) K/uL Comprehensive Metabolic Panel 06/16/19 Range/Units 05:27 Sodium 142 (136-145) mmol/L Potassium 3.8 D (3.5-5.1) mmol/L Chloride 104 (98-107) mmol/L Carbon Dioxide 35 H (21-32) mmol/L BUN 54 H (7-18) mg/dl Creatinine 2.00 H (0.6-1.2) mg/dl Glucose 126 H (70-99) mg/dl Calcium 8.7 (8.5-10.1) mg/dl Intake and Output 06/15/19 06/16/19 06/16/19 22:59 06:59 14:59 Intake Total 250 / 490 Output Total 950 / 2425 650 / 2425 Balance -700 / -1935 -650 / -1935 Intake: Oral 250 / 490 Output: Urine Amount (Catheter) 950 / 2425 650 / 2425 Ying/Indwelling 950 / 2425 650 / 2425 Other: Weight 93 kg Diagnostic Findings Telemetry: Sinus rhythm, rate 60-70. PG Care Time/CCT Total # of Minutes Spent Total Time Spent with Patient: Total time spent is greater than 50% in coordination of care (as documented) at patient's floor/unit and/or counseling patient: (1) Anemia Anemia type: unspecified type Qualified Code(s): D64.9 - Anemia, unspecified
--- NOTE | 2019-06-16 13:15 | Hospitalist Progress Note ---
Date of Service June 16, 2019 Assessment & Plan (1) Right heart failure: Acute on chronic CHF. Mostly right-sided and associated with severe pulmonary hypertension which is worsening. - Continue Bumex IV -> Switch to BID today. - Monitor I's and O's. Also monitor daily weights. - Continue supplemental oxygen. - Cardiology consulted - Appreciate recs (2) HTN (hypertension): BP 90/60 today. - Holding beta-mary due to bradycardia and mild hypotension. (3) CAD (coronary artery disease): Cardiac medications as described above. Of note, patient has a left bundle branch block on EKG, unclear if this is new but not mentioned in previous cardiology notes. - Troponins negative at 0.04 x 3; no chest pain. (4) DM (diabetes mellitus): A1c was 6.2% on 06/15/2019. Does not appear to be on any medications at this time. Has noted allergy to insulin. - Follow blood sugars (5) CKD (chronic kidney disease) stage 4, GFR 15-29 ml/min: Baseline Cr ~1.7-2.0, eGFR ~20. - Presently at baseline. - Monitor (6) Anemia: Hgb was in the 14 range last year, but hgb has been substantially lower this admission. - Anemia labs show iron deficiency - Replete iron stores x 3 days - Monitor (7) Atrial fibrillation: Presently rate-controlled. - Continue amiodarone - Hold Xarelto as noted above - Restart as able (8) Elevated INR: Patient is on Xarelto which likely accounts for the elevated INR. Hold as noted above. - Rechecked INR on 06/16 -> Now within normal range. Subjective Still has leg swelling, but clear lung sounds. No shortness of breath. Reports no fevers/chills, chest pain, shortness of breath, abdominal pain, nausea, or vomiting. Physical Exam Constitutional: WD/WN, vitals as above Eyes: EOM intact bilaterally; no conjunctival abnormality ENMT: external ear and nose normal, oropharynx normal Neck: trachea midline, no thyromegaly normal visual inspection Respiratory: normal respiratory effort, lungs clear to auscultation no respiratory distress Cardiovascular: Rate/Rhythm: regular rate and regular rhythm Extremities: + edema (To low thighs) Gastrointestinal (Abdomen): Inspection/Auscultation: abdomen normal to inspection; abdomen not distended Musculoskeletal: no cyanosis or clubbing, extremities motor strength 5/5 Skin: no rashes, warm and dry Neurologic: moves all extremities and awake Psychiatric: Orientation: alert, oriented to person and cooperative Results & Data Vital Signs (Past 12 Hours) Vital Signs Temp Pulse Pulse Resp BP Pulse Ox 06/16/19 10:50 36.4 C L 74 19 95/59 L 92 06/16/19 08:00 63 06/16/19 07:49 36.7 C 66 14 105/62 97 06/16/19 03:03 36.6 C 66 20 111/67 99 PG Care Time/CCT Total # of Minutes Spent Total Time Spent with Patient: Total time spent is greater than 50% in coordination of care (as documented) at patient's floor/unit and/or counseling patient: (1) Anemia Anemia type: unspecified type Qualified Code(s): D64.9 - Anemia, unspecified
[2019-06-16] MEDS: IRON SUCROSE 100 MG in 0.9 % SODIUM CHLORIDE 100 ML IV SCH (13:58)
[2019-06-16] MEDS ORDERED: BUMETANIDE 1 MG in SYRINGE 0 ML IV SCH (17:00)
[2019-06-16] MEDS: ACETAMINOPHEN 325 MG TAB PO PRN (22:49)
[2019-06-17 05:58] LABS: Hematocrit (blood only) 28.3 % (37-47); Hemoglobin 8.3 g/dL (12.0-16.0); Mean Corpuscular Hemoglobin 26.5 pg (25-34); Mean Corpuscular Hgb Conc 29.3 g/dL (32-36); Mean Corpuscular Volume 90.4 fL (80-100); Mean Platelet Volume 10.4 fL (7.4-10.4); Nucleated RBC # (auto) 0.08 K/uL (0-0); Nucleated RBC % (auto) 0.9 %; Platelet Count 212 K/uL (130-400); RDW Coefficient of Variation 17.2 % (11.5-14.5); RDW Standard Deviation 56.9 fL (36.4-46.3); Red Blood Count 3.13 M/uL (4.2-5.4); White Blood Count 8.09 K/uL (4.8-10.8)
[2019-06-17 06:28] LABS: BUN Creatinine Ratio 25.8 (10-20); Calcium 8.7 mg/dl (8.5-10.1); Creatinine Clr Calc Pharmacy 22.1 ml/min; Est GFR (African American) 25.8; Est GFR (Non-African American) 22.2; Potassium 3.7 mmol/L (3.5-5.1)
[2019-06-17] MEDS: BUMETANIDE 1 MG in SYRINGE 0 ML IV SCH ×2 (08:48→16:44)
[2019-06-17] MEDS: ATORVASTATIN 40 MG TAB PO SCH (08:51)
[2019-06-17] MEDS: POTASSIUM CHLORIDE 10 MEQ TABCR PO SCH ×2 (08:51→19:56)
[2019-06-17] MEDS: AMIODARONE 200 MG TAB PO SCH (08:51)
[2019-06-17] MEDS: IRON SUCROSE 100 MG in 0.9 % SODIUM CHLORIDE 100 ML IV SCH (09:51)
--- NOTE | 2019-06-17 17:12 | Hospitalist Progress Note ---
Date of Service June 17, 2019 Assessment & Plan (1) Right heart failure: Acute on chronic diastolic CHF. Mostly right-sided and associated with severe pulmonary hypertension which is worsening. notes he and patient have been eating microwave dinners with up to 1,600 mg of sodium. We discussed monitoring for sodium in pre-packaged foods, and they will try to improve salt intake. - Continue Bumex IV -> Switched to BID on 06/17; however, her weights are not decreasing and she still has lots of LE edema. - Increased dose to 1.5 mg BID for tomorrow (06/18). - Monitor I's and O's. Also monitor daily weights. - Continue supplemental oxygen. - Cardiology consulted - Appreciate recs (2) HTN (hypertension): BP 100/60 today. - Holding beta-mary due to bradycardia and mild hypotension. (3) CAD (coronary artery disease): Cardiac medications as described above. Of note, patient has a left bundle branch block on EKG, unclear if this is new but not mentioned in previous cardiology notes. - Troponins negative at 0.04 x 3; no chest pain. (4) Atrial fibrillation: Presently rate-controlled. - Continue amiodarone - Initially held Xarelto for concern for GI bleed. At present, she is in sinus rhythm, and cardiology feels we can continue to hold Xarelto for now. (5) CKD (chronic kidney disease) stage 4, GFR 15-29 ml/min: Baseline Cr ~1.7-2.0, eGFR ~20. - Presently at baseline. - Monitor (6) DM (diabetes mellitus): A1c was 6.2% on 06/15/2019. Does not appear to be on any medications at this time. Has noted allergy to insulin. - Follow blood sugars - Have largely been under control from 110-160. (7) Anemia: Hgb was in the 14 range last year, but hgb has been substantially lower this admission. Initially concern for GI bleed. - Anemia labs show iron deficiency - Replete iron stores x 3 days (Last dose on 06/18). - Monitor - Stable last few days. (8) Asymptomatic bacteriuria: Routine UA done in the ED for no appreciable symptoms. 0/4 SIRS. Culture has now grown ESBL E. coli. I do not think this represents infection. - Contact precautions. No abx at this time. (9) DVT prophylaxis: Heparin 5000 units SQ Q12h Subjective Doing better. She feels like her breathing is doing ok, but her legs are not going down much. Reports no fevers/chills, chest pain, shortness of breath, ab dominal pain, nausea, or vomiting. Physical Exam Constitutional: WD/WN, vitals as above Eyes: EOM intact bilaterally; no conjunctival abnormality ENMT: external ear and nose normal, oropharynx normal Neck: trachea midline, no thyromegaly normal visual inspection Respiratory: normal respiratory effort, lungs clear to auscultation no respiratory distress Cardiovascular: RRR, no murmur, no edema Rate/Rhythm: regular rate and regular rhythm Extremities: + edema (To low thighs) Gastrointestinal (Abdomen): Inspection/Auscultation: abdomen normal to inspection; abdomen not distended Musculoskeletal: no cyanosis or clubbing, extremities motor strength 5/5 Skin: no rashes, warm and dry Neurologic: moves all extremities and awake Psychiatric: Orientation: alert, oriented to person and cooperative Results & Data Vital Signs (Past 12 Hours) Vital Signs Temp Pulse Pulse Resp BP Pulse Ox 06/17/19 15:57 36.6 C 67 23 100/62 95 06/17/19 15:00 64 06/17/19 11:57 36.6 C 67 18 98/64 L 95 06/17/19 08:36 36.5 C 73 18 107/65 98 06/17/19 08:00 78 PG Care Time/CCT Total # of Minutes Spent Total Time Spent with Patient: Total time spent is greater than 50% in coordination of care (as documented) at patient's floor/unit and/or counseling patient: (1) Anemia Anemia type: unspecified type Qualified Code(s): D64.9 - Anemia, unspecified
[2019-06-17] MEDS ORDERED: METOPROLOL TARTRATE 1 MG/ML VIAL IV STA (20:29)
[2019-06-17] MEDS: HEPARIN SOD 5,000 UNIT/0.5 ML VIAL SQ SCH (20:33)
--- NOTE | 2019-06-17 20:53 | XRay Report ---
XR chest 1V portable HISTORY: 83 years-old Female tachycardia acute tachycardia COMPARISON: Chest radiograph 06/14/2019, chest CT 08/24/2017. TECHNIQUE: Portable AP view of the chest FINDINGS: Cardiac silhouette is enlarged, unchanged. Calcified plaque of the thoracic aortic arch. Resolution o f the previously noted pulmonary edema. Mild chronic interstitial opacities. No pneumothorax, large p leural effusion or new focal airspace consolidation. Improved aeration of the bilateral lungs. Degene rative changes of the shoulders and spine. Convex right curvature of the thoracic spine. IMPRESSION: 1. Cardiomegaly with resolution of the previously described pulmonary edema. 2. Mild chronic appearing interstitial coarsening. ACT 112: Negative or not required by law. The above report was generated using voice recognition software. It may contain grammatical, syntax o r spelling errors. Electronically signed by: Dionisio Tenorio M.D. 06/17/2019 8:52 PM
[2019-06-18 06:22] LABS: INR 1.1 (0.9-1.1); Prothrombin Time 11.5 Seconds (9.0-12.0)
[2019-06-18 06:28] LABS: Hematocrit (blood only) 29.9 % (37-47); Hemoglobin 8.6 g/dL (12.0-16.0); Mean Corpuscular Hemoglobin 26.5 pg (25-34); Mean Corpuscular Hgb Conc 28.8 g/dL (32-36); Mean Corpuscular Volume 92.3 fL (80-100); Mean Platelet Volume 10.4 fL (7.4-10.4); Nucleated RBC # (auto) 0.11 K/uL (0-0); Nucleated RBC % (auto) 1.2 %; Platelet Count 226 K/uL (130-400); RDW Coefficient of Variation 17.2 % (11.5-14.5); RDW Standard Deviation 57.3 fL (36.4-46.3); Red Blood Count 3.24 M/uL (4.2-5.4); White Blood Count 8.98 K/uL (4.8-10.8)
[2019-06-18 06:43] LABS: Albumin Level 2.9 gm/dl (3.4-5.0); BUN Creatinine Ratio 23.8 (10-20); Calcium 9.1 mg/dl (8.5-10.1); Creatinine Clr Calc Pharmacy 23.5 ml/min; Est GFR (African American) 27.8; Est GFR (Non-African American) 23.9; Potassium 3.7 mmol/L (3.5-5.1)
[2019-06-18 06:46] LABS: Albumin Globulin Ratio 0.8 (0.9-2); Bilirubin,Total 1.3 mg/dl (0.2-1); Globulin 3.5 gm/dl (2.5-4.0); Total Protein 6.4 gm/dl (6.4-8.2)
[2019-06-18] MEDS: BUMETANIDE 1.5 MG in SYRINGE 0 ML IV SCH ×2 (08:57→17:36)
[2019-06-18] MEDS: IRON SUCROSE 100 MG in 0.9 % SODIUM CHLORIDE 100 ML IV SCH (08:57)
[2019-06-18] MEDS: POTASSIUM CHLORIDE 10 MEQ TABCR PO SCH ×2 (08:57→20:40)
[2019-06-18] MEDS: ATORVASTATIN 40 MG TAB PO SCH (08:58)
[2019-06-18] MEDS: AMIODARONE 200 MG TAB PO SCH (08:58)
[2019-06-18] MEDS: HEPARIN SOD 5,000 UNIT/0.5 ML VIAL SQ SCH ×2 (08:58→20:39)
--- NOTE | 2019-06-18 10:36 | Cardiology Progress Note ---
Date of Service June 18, 2019 Assessment & Plan (1) CHF (congestive heart failure): She certainly has congestive heart failure with evidence of right heart failure on exam and echocardiography, however she may also have some component of left heart failure with diastolic dysfunction. She does not have systolic dysfunction. She will need ongoing diuresis and has significant fluid overload, although her intake and output suggest diuresis she is not being weighed daily and not sure how much weight she has lost, her exam has not changed much. Hopefully we will be able to diurese her without affecting her kidney function, her creatinine has remained around 2 but may improve with diuresis. It sounds as though she was doing well about a month ago, suggesting that this is not an ongoing difficulty but a recent decompensation. (2) CHRISTIANSON (dyspnea on exertion): She has had a lot of difficulty with dyspnea on exertion over the last month, this may be multifactorial including her anemia, her heart failure and fluid retention. We can see if this improves substantially with diuresis. If it is due to her lung disease there is probably little that can be done. (3) Anemia: She had a significant blood loss although we do not have laboratory studies over the last year that I can see. Over the long run she should be on anticoagulation, she had about 12 hours of some type of atrial arrhythmia, pr obably atrial flutter, in the past 24 hours. Ideally I would recommend restarting anticoagulation if it is felt safe. (4) Atrial fibrillation: She has atrial fibrillation and probably atrial flutter, it sounds as though she had a relatively recently because she was given some sort of pill by Dr. Perez although she does not know what it is, evidently this was given to her because her heart rate was fast. I would continue amiodarone. (5) Moderate to severe pulmonary hypertension: She has a longstanding history of pulmonary hypertension. This may improve with diuresis, although will still be present. This is probably secondary to her lung disease and therefore there is little that can be done. Hopefully this will return to her baseline. Subjective She has not been sleeping well although she has been feeling quite well. She denies shortness of breath, she notes that her legs are still swollen. Physical Exam Physical Exam: Constitutional: Alert, cooperative and in no distress. Pulmonary: Clear to auscultation bilaterally. Cardiac: Regular rhythm with no murmur, gallop or rub. Abdomen: Soft, nontender with normal bowel sounds. Extremities: +3 bilateral pretibial pitting edema. Skin: No rash, ecchymoses or petechiae. Results & Data Vital Signs (Past 12 Hours) Vital Signs Temp Pulse Resp BP Pulse Ox 06/18/19 07:30 36.4 C L 66 19 95/58 L 99 06/18/19 04:16 36.5 C 119 H 20 98/64 L 95 06/17/19 23:00 36.6 C 115 H 20 92/60 L 96 Diagnostic Findings Cardiac Enzymes 06/18/19 Range/Units 05:25 AST 57 H (15-37) U/L Coagulation 06/18/19 Range/Units 05:25 PT 11.5 (9.0-12.0) Seconds CBC 06/18/19 Range/Units 05:25 WBC 8.98 (4.8-10.8) K/uL RBC 3.24 L (4.2-5.4) M/uL Hgb 8.6 L (12.0-16.0) g/dL Hct 29.9 L (37-47) % Plt Count 226 (130-400) K/uL Comprehensive Metabolic Panel 06/18/19 Range/Units 05:25 Sodium 141 (136-145) mmol/L Potassium 3.7 (3.5-5.1) mmol/L Chloride 103 (98-107) mmol/L Carbon Dioxide 35 H (21-32) mmol/L BUN 45 H (7-18) mg/dl Creatinine 1.89 H (0.6-1.2) mg/dl Glucose 116 H (70-99) mg/dl Calcium 9.1 (8.5-10.1) mg/dl AST 57 H (15-37) U/L ALT 70 (12-78) U/L Alkaline Phosphatase 199 H (45-117) U/L Total Protein 6.4 (6.4-8.2) gm/dl Albumin 2.9 L (3.4-5.0) gm/dl Intake and Output 06/17/19 06/18/19 06/18/19 22:59 06:59 14:59 Intake Total 342 / 987 345 / 345 Output Total 550 / 2000 450 / 450 Balance -550 / -1013 342 / -1013 -105 / -105 Intake: IV 105 / 105 Venofer 100 mg In Sodium 105 / 105 Chloride 100 ml @ 420 mls/hr IV DAILY [facility] Rx#:[id number] Oral 342 / 882 240 / 240 Output: Urine Amount (Catheter) 1999 450 / 450 Ying/Indwelling 1999 450 / 450 Telemetry: Over the past 24 hours she has spent about 12 hours and some sort of rapid supraventricular rhythm, I suspect it is paroxysmal atrial flutter since it is quite regular. The rate was elevated at about 120 bpm. An electrocardiogram done yesterday at 6 PM shows probable atrial flutter at a rate of 124 bpm. A repeat electrocardiogram done a few minutes later is similar. PG Care Time/CCT Total # of Minutes Spent Total Time Spent with Patient: Total time spent is greater than 50% in coordination of care (as documented) at patient's floor/unit and/or counseling p atient: (1) Anemia Anemia type: unspecified type Qualified Code(s): D64.9 - Anemia, unspecified
[2019-06-18] MEDS ORDERED: SOD PHOSPHATE/SOD BIPHOSPHATE ENEMA 132 ML BTL PR STA (14:33)
--- NOTE | 2019-06-18 22:50 | Hospitalist Progress Note ---
Date of Service June 18, 2019 Assessment & Plan (1) Right heart failure: Acute on chronic diastolic CHF. Mostly right-sided and associated with severe pulmonary hypertension which is worsening. notes he and patient have been eating microwave dinners with up to 1,600 mg of sodium. We discussed monitoring for sodium in pre-packaged foods, and they will try to improve salt intake. - Continue Bumex IV -> Switched to BID on 06/17; however, her weights are not decreasing and she still has lots of LE edema. - Increased dose to 1.5 mg BID (06/18). -Patient appears to have R sided CHF with possible left sided diastolic CHF. -She appears to be clinically improving. will monitor. - Monitor I's and O's. Also monitor daily weights. - Continue supplemental oxygen. - Cardiology consulted - Appreciate recs (2) HTN (hypertension): BP 100/60 today. - Holding beta-mary due to bradycardia and mild hypotension. (3) CAD (coronary artery disease): Cardiac medications as described above. Of note, patient has a left bundle branch block on EKG, unclear if this is new but not mentioned in previous cardiology notes. - Troponins negative at 0.04 x 3; no chest pain. (4) Atrial fibrillation: Presently rate-controlled. - Continue amiodarone - Initially held Xarelto for concern for GI bleed. At present, she is in sinus rhythm, and cardiology feels we can continue to hold Xarelto for now. (5) CKD (chronic kidney disease) stage 4, GFR 15-29 ml/min: Baseline Cr ~1.7-2.0, eGFR ~20. - Presently at baseline. - Monitor (6) DM (diabetes mellitus): A1c was 6.2% on 06/15/2019. Does not appear to be on any medications at this time. Has noted allergy to insulin. - Follow blood sugars - Have largely been under control from 110-160. (7) Anemia: Hgb was in the 14 range last year, but hgb has been substantially lower this admission. Initially concern for GI bleed. - Anemia labs show iron deficiency - Replete iron stores x 3 days (Last dose on 06/18). - Monitor - Stable last few days. (8) Asymptomatic bacteriuria: Routine UA done in the ED for no appreciable symptoms. 0/4 SIRS. Culture has now grown ESBL E. coli. I do not think this represents infection. - Contact precautions. No abx at this time. (9) DVT prophylaxis: Heparin 5000 units SQ Q12h Subjective 83 yo female reports feeling tired and weak. She does however report feeling better than she did yesterday. Review of Systems Review of Systems: All systems reviewed & are unremarkable except as noted in HPI & below Physical Exam Physical Exam: Constitutional: WD/WN, vitals as above Eyes: EOM intact bilaterally; no conjunctival abnormality ENMT: external ear and nose normal, oropharynx normal Neck: trachea midline, no thyromegaly normal visual inspection Respiratory: normal respiratory effort, lungs clear to auscultation no respiratory distress Cardiovascular: RRR, no murmur, no edema Rate/Rhythm: regular rate and regular rhythm Extremities: + edema (To low thighs) Gastrointestinal (Abdomen): Inspection/Auscultation: abdomen normal to inspection; abdomen not distended Musculoskeletal: no cyanosis or clubbing, extremities motor strength 5/5 Skin: no rashes, warm and dry Neurologic: moves all extremities and awake Psychiatric: Orientation: alert, oriented to person and cooperative Results & Data Vital Signs (Past 12 Hours) Vital Signs Temp Pulse Resp BP Pulse Ox 06/18/19 20:01 36.8 C 123 H 16 105/68 94 06/18/19 15:25 36.5 C 122 H 20 107/69 94 06/18/19 11:35 36.5 C 66 18 104/65 98 PG Care Time/CCT Total # of Minutes Spent Total Time Spent with Patient: Total time spent is greater than 50% in coordination of care (as documented) at patient's floor/unit and/or counseling patient: (1) Anemia Anemia type: unspecified type Qualified Code(s): D64.9 - Anemia, unspecified
[2019-06-19] MEDS: AMIODARONE 200 MG TAB PO SCH (08:14)
[2019-06-19] MEDS: ATORVASTATIN 40 MG TAB PO SCH (08:14)
[2019-06-19] MEDS: BUMETANIDE 1.5 MG in SYRINGE 0 ML IV SCH ×2 (08:14→17:09)
[2019-06-19] MEDS: HEPARIN SOD 5,000 UNIT/0.5 ML VIAL SQ SCH ×2 (08:14→20:44)
[2019-06-19] MEDS: POTASSIUM CHLORIDE 10 MEQ TABCR PO SCH ×2 (08:14→20:45)
--- NOTE | 2019-06-19 08:42 | Cardiology Progress Note ---
Date of Service June 19, 2019 Assessment & Plan (1) CHF (congestive heart failure): She certainly has congestive heart failure with evidence of right heart failure on exam and echocardiography, however she may also have some component of left heart failure with diastolic dysfunction. She does not have systolic dysfunction. She will need ongoing diuresis and has significant fluid overload, although her intake and output suggest diuresis she has not lost much fluid by weights, her exam has not changed much. Hopefully we will be able to diurese her without affecting her kidney function, her creatinine has remained around 2 but may improve with diuresis. I would much more aggressively diurese her as she still has quite a bit of fluid on board. It sounds as though she was doing well about a month ago, suggesting that this is not an ongoing difficulty but a recent decompensation. (2) CHRISTIANSON (dyspnea on exertion): She has had a lot of difficulty with dyspnea on exertion over the last month, this may be multifactorial including her anemia, her heart failure and fluid retention. We can see if this improves substantially with diuresis. If it is due to her lung disease there is probably little that can be done. (3) Anemia: She had a significant blood loss although we do not have laboratory studies over the last year that I can see. Over the long run she should be on anticoagulation, she had about 12 hours of some type of atrial arrhythmia, probably atrial flutter, in the past 24 hours. Ideally I would recommend restarting anticoagulation if it is felt safe. (4) Atrial fibrillation: She has atrial fibrillation and probably atrial flutter, it sounds as though she had a relatively recently because she was given some sort of pill by Dr. Perez although she does not know what it is, evidently this was given to her because her heart rate was fast. I would continue amiodarone. Ideally she would be on an anticoagulant. She is having about 50% atrial arrhythmias over the last several days and is at risk for stroke. I would start an anticoagulant (she was on Xarelto) if it is felt safe. (5) Moderate to severe pulmonary hypertension: She has a longstanding history of pulmonary hypertension. This may improve with diuresis, although will still be present. This is probably secondary to her lung disease and therefore there is little that can be done. Hopefully this will return to her baseline. Subjective She is feeling better today, she had a good night sleep, she had a good bowel movement and feels significantly improved. She is sitting at the bedside. Physical Exam Physical Exam: Constitutional: Alert, cooperative and in no distress. Pulmonary: Clear to auscultation bilaterally. Cardiac: Regular rhythm with no murmur, gallop or rub. Abdomen: Soft, nontender with normal bowel sounds. Extremities: +3 bilateral pretibial pitting edema. Skin: No rash, ecchymoses or petechiae. Results & Data Vital Signs (Past 12 Hours) Vital Signs Temp Pulse Resp BP Pulse Ox 06/19/19 07:17 36.6 C 69 20 105/65 96 06/19/19 03:31 36.7 C 76 20 110/64 95 06/19/19 00:00 36.7 C 123 H 20 102/68 94 Laboratory Results Abnormal lab results 06/18/19 06/18/19 06/18/19 Range/Units 11:33 16:42 20:33 POC Glucose 149 H 163 H 178 H (70-99) 06/19/19 Range/Units 07:36 POC Glucose 127 H (70-99) Diagnostic Findings Telemetry: She continues to have episodes of atrial fibrillation and flutter, in the past 24 hours she had probable atrial flutter from [id number], almost 10 hours. Rate was around 120 bpm. PG Care Time/CCT Total # of Minutes Spent Total Time Spent with Patient: Total time spent is greater than 50% in coordination of care (as documented) at patient's floor/unit and/or counseling patient: (1) Anemia Anemia type: unspecified type Qualified Code(s): D64.9 - Anemia, unspecified
--- NOTE | 2019-06-19 23:08 | Hospitalist Progress Note ---
Date of Service June 19, 2019 Assessment & Plan (1) Right heart failure: Acute on chronic diastolic CHF. Mostly right-sided and associated with severe pulmonary hypertension which is worsening. notes he and patient have been eating microwave dinners with up to 1,600 mg of sodium. We discussed monitoring for sodium in pre-packaged foods, and they will try to improve salt intake. - Continue Bumex IV -> Switched to BID on 06/17; however, her weights are not decreasing and she still has lots of LE edema. - Increased dose to 1.5 mg BID (06/18). -[id number] liters since admission. -Patient appears to have R sided CHF with possible left sided diastolic CHF. -She appears to be clinically improving. will monitor. - Monitor I's and O's. Also monitor daily weights. - Continue supplemental oxygen. - Cardiology consulted - Appreciate recs (2) HTN (hypertension): BP appears stable (low 100s sytolic) - Holding beta-mary due to bradycardia and mild hypotension. (3) CAD (coronary artery disease): Cardiac medications as described above. Of note, patient has a left bundle branch block on EKG, unclear if this is new but not mentioned in previous cardiology notes. - Troponins negative at 0.04 x 3; no chest pain. (4) Atrial fibrillation: Presently rate-controlled. - Continue amiodarone - Initially held Xarelto for concern for GI bleed. -will likely need to restart anticoag at some point, as patient has appeared to be going in and out of atrial flutter during hospital stay. (5) CKD (chronic kidney disease) stage 4, GFR 15-29 ml/min: Baseline Cr ~1.7-2.0, eGFR ~20. - Presently at baseline. - Monitor (6) DM (diabetes mellitus): A1c was 6.2% on 06/15/2019. Does not appear to be on any medications at this time. Has noted allergy to insulin. - Follow blood sugars - Have largely been under control from 110-160. (7) Anemia: Hgb was in the 14 range last year, but hgb has been substantially lower this admission. Initially concern for GI bleed. - Anemia labs show iron deficiency - Replete iron stores x 3 days (Last dose on 06/18). - Monitor - Stable last few days. (8) Asymptomatic bacteriuria: Routine UA done in the ED for no appreciable symptoms. 0/4 SIRS. Culture has now grown ESBL E. coli. I do not think this represents infection. - Contact precautions. No abx at this time. (9) DVT prophylaxis: Heparin 5000 units SQ Q12h Subjective Patient reports feeling mildly improved. She still states significant edema in her lower extremities Review of Systems Review of Systems: All systems reviewed & are unremarkable except as noted in HPI & below Physical Exam Physical Exam: Constitutional: WD/WN, vitals as above Eyes: EOM intact bilaterally; no conjunctival abnormality ENMT: external ear and nose normal, oropharynx normal Neck: trachea midline, no thyromegaly normal visual inspection Respiratory: normal respiratory effort, lungs clear to auscultation no respiratory distress Cardiovascular: RRR, no murmur, no edema Rate/Rhythm: regular rate and regular rhythm Extremities: + edema (To low thighs) Gastrointestinal (Abdomen): Inspection/Auscultation: abdomen normal to inspection; abdomen not distended Musculoskeletal: no cyanosis or clubbing, extremities motor strength 5/5 Skin: no rashes, warm and dry Neurologic: moves all extremities and awake Psychiatric: Orientation: alert, oriented to person and cooperative Results & Data Vital Signs (Past 12 Hours) Vital Signs Temp Pulse Resp BP Pulse Ox 06/19/19 19:22 36.7 C 122 H 20 103/72 93 06/19/19 15:16 36.8 C 91 H 19 103/63 93 06/19/19 11:38 36.4 C L 118 H 18 107/72 97 PG Care Time/CCT Total # of Minutes Spent Total Time Spent with Patient: Total time spent is greater than 50% in coordination of care (as documented) at patient's floor/unit and/or counseling patient: (1) Anemia Anemia type: unspecified type Qualified Code(s): D64.9 - Anemia, unspecified
[2019-06-20 06:04] LABS: Hematocrit (blood only) 29.1 % (37-47); Hemoglobin 8.5 g/dL (12.0-16.0); Mean Corpuscular Hgb Conc 29.2 g/dL (32-36); Mean Corpuscular Volume 92.4 fL (80-100); Nucleated RBC # (auto) 0.02 K/uL (0-0); Nucleated RBC % (auto) 0.3 %; RDW Standard Deviation 56.9 fL (36.4-46.3); Red Blood Count 3.15 M/uL (4.2-5.4); White Blood Count 8.17 K/uL (4.8-10.8)
[2019-06-20 06:08] LABS: Partial Thromboplastin Ratio 0.9; Partial Thromboplastin Time 23.3 Seconds (21.0-31.0)
[2019-06-20 06:22] LABS: BUN Creatinine Ratio 20.3 (10-20); Calcium 8.7 mg/dl (8.5-10.1); Creatinine Clr Calc Pharmacy 21.9 ml/min; Est GFR (African American) 25.8; Est GFR (Non-African American) 22.2; Potassium 3.4 mmol/L (3.5-5.1)
[2019-06-20 06:34] LABS: Mean Platelet Volume 10.9 fL (7.4-10.4); Platelet Count 227 K/uL (130-400)
[2019-06-20 06:39] LABS: Acanthocytes 2+; Basophils # (auto) 0.02 K/uL (0-0.2); Basophils % (auto) 0.2 %; Eosinophils # (auto) 0.27 K/uL (0-0.5); Eosinophils % (auto) 3.3 %; Immature Granulocytes # (auto) 0.02 K/uL (0.00-0.02); Immature Granulocytes % (auto) 0.2 %; Lymphocytes # (auto) 1.99 K/uL (1.2-3.4); Lymphocytes % (auto) 24.4 %; Monocytes # (auto) 0.63 K/uL (0.11-0.59); Monocytes % (auto) 7.7 %; Neutrophils # (auto) 5.24 K/uL (1.4-6.5); Neutrophils % (auto) 64.2 %; Platelet Estimate Normal (Normal)
[2019-06-20] MEDS: AMIODARONE 200 MG TAB PO SCH (08:31)
[2019-06-20] MEDS: BUMETANIDE 1.5 MG in SYRINGE 0 ML IV SCH ×2 (08:31→17:08)
[2019-06-20] MEDS: HEPARIN SOD 5,000 UNIT/0.5 ML VIAL SQ SCH (08:32)
[2019-06-20] MEDS: POTASSIUM CHLORIDE 10 MEQ TABCR PO SCH (08:32)
[2019-06-20] MEDS: ATORVASTATIN 40 MG TAB PO SCH (08:33)
--- NOTE | 2019-06-20 12:42 | Hospitalist Progress Note ---
Date of Service June 20, 2019 Assessment & Plan (1) Right heart failure: Acute on chronic diastolic CHF. Mostly right-sided and associated with severe pulmonary hypertension which is worsening. notes he and patient have been eating microwave dinners with up to 1,600 mg of sodium. We discussed monitoring for sodium in pre-packaged foods, and they will try to improve salt intake. - Continue Bumex IV -> Switched to BID on 06/17; however, her weights are not decreasing and she still has lots of LE edema. - Increased dose to 1.5 mg BID (06/18), tolerating well, it is working slowly -Negative > 6 liters since admission. -Patient appears to have R sided CHF with possible left sided diastolic CHF. -She appears to be clinically improving. will monitor. - Monitor I's and O's. Also monitor daily weights. - Continue supplemental oxygen. - Cardiology consulted - Appreciate recs (2) HTN (hypertension): BP appears stable (low 100s sytolic) - Holding beta-mary due to bradycardia and mild hypotension. difficult because she is having tachycardia despite the Amiodarone but beta blockade could make her slow, hypotensive again defer to cardiology (3) CAD (coronary artery disease): Cardiac medications as described above. Of note, patient has a left bundle branch block on EKG, unclear if this is new but not mentioned in previous cardiology notes. - Troponins negative at 0.04 x 3; no chest pain. (4) Atrial fibrillation: intermittent RVR, rates in the 120's, appears more like atrial flutter - Continue amiodarone - Initially held Xarelto for concern for GI bleed. - resume Xarelto 15mg daily defer to cardiology on what to add for rate control (5) CKD (chronic kidney disease) stage 4, GFR 15-29 ml/min: Baseline Cr ~1.7-2.0, eGFR ~20. - Presently at baseline, it is 2.0 despite being on Bumex - Monitor (6) DM (diabetes mellitus): A1c was 6.2% on 06/15/2019. Does not appear to be on any medications at this time. Has noted allergy to insulin. - Follow blood sugars - Have largely been under control from 110-160. (7) Anemia: Hgb was in the 14 range last year, but hgb has been substantially lower this admission. Initially concern for GI bleed. - Anemia labs show iron deficiency - Replete iron stores x 3 days (Last dose on 06/18). Hb has been stable (8) Asymptomatic bacteriuria: Routine UA done in the ED for no appreciable symptoms. 0/4 SIRS. Culture has now grown ESBL E. coli. I do not think this represents infection. - Contact precautions. No abx at this time. (9) DVT prophylaxis: Heparin 5000 units SQ Q12h Subjective patient says she feels a lot better compared to when she was admitted discussed with her that she is negative over 6 liters today weight is trending down still with pitting edema in her lower legs but she says they are half the size that they were on monitor she is having intermittent runs of atrial flutter with RVR no chest pain or pressure, minimal dyspnea, she feels a lot better labs reviewed, CR stable at 2, K slightly low today, will replace Review of Systems Review of Systems: All systems reviewed & are unremarkable except as noted in HPI & below Constitutional: + fatigue and + weakness; no fever, no chills and no sweats Respiratory: + dyspnea on exertion; no cough and no dyspnea Cardiovascular: + dyspnea on exertion and + edema; no chest pain, no palpitations and no syncope Gastrointestinal: no abdominal pain, no nausea, no vomiting, no constipation and no diarrhea/loose stools Physical Exam Constitutional: WD/WN, vitals as above Eyes: PERRL, conjunctivae normal, anicteric sclerae ENMT: external ear and nose normal, oropharynx normal Neck: trachea midline, no thyromegaly Respiratory: normal respiratory effort, lungs clear to auscultation Cardiovascular: Rate/Rhythm: + tachycardic and + irregularly irregular Heart Sounds: normal S1 and normal S2; no murmur Vessels: + JVD Extremities: normal capillary refill and + edema Gastrointestinal (Abdomen): normal bowel sounds, soft, nontender, no hepatosplenomegaly Musculoskeletal: no cyanosis or clubbing, extremities motor strength 5/5 Skin: no rashes, warm and dry Neurologic: patellar DTR's 2+ bilat, sensation intact and PERRL, EOMI, a ccommodation nl, no face palsy, no dysarthria Psychiatric: A+Ox3, euthymic affect Lymphatic: no cervical or axillary lymphadenopathy Results & Data Vital Signs (Past 12 Hours) Vital Signs Temp Pulse Resp BP Pulse Ox 06/20/19 11:17 36.7 C 110 H 18 91/56 L 95 06/20/19 07:00 36.6 C 110 H 19 98/65 L 96 06/20/19 03:27 36.6 C 71 19 108/56 L 95 Laboratory Results Laboratory Results - last 24 hr 06/19/19 06/20/19 06/20/19 20:32 05:10 05:10 WBC 8.17 RBC 3.15 L Hgb 8.5 L Hct 29.1 L MCV 92.4 MCH 27.0 MCHC 29.2 L RDW Std Deviation 56.9 H RDW Coeff of Portia 18.0 H Plt Count 227 MPV 10.9 H Immature Gran % (Auto) 0.2 Neut % (Auto) 64.2 Lymph % (Auto) 24.4 Hanson % (Auto) 7.7 Eos % (Auto) 3.3 Baso % (Auto) 0.2 Immature Gran # (Auto) 0.02 Neut # (Auto) 5.24 Lymph # (Auto) 1.99 Hanson # (Auto) 0.63 H Eos # (Auto) 0.27 Baso # (Auto) 0.02 Absolute Nucleated RBC 0.02 H Nucleated RBC % (auto) 0.3 Platelet Estimate Normal Acanthocytes (Spur) 2+ APTT 23.3 PTT Ratio 0.9 Sodium Potassium Chloride Carbon Dioxide Anion Gap BUN Creatinine Est Cr Clr Drug Dosing Est GFR ( Amer) Est GFR (Non-Af Amer) BUN/Creatinine Ratio Glucose POC Glucose 177 H Calcium 06/20/19 06/20/19 06/20/19 05:10 06:58 11:15 WBC RBC Hgb Hct MCV MCH MCHC RDW Std Deviation RDW Coeff of Portia Plt Count MPV Immature Gran % (Auto) Neut % (Auto) Lymph % (Auto) Hanson % (Auto) Eos % (Auto) Baso % (Auto) Immature Gran # (Auto) Neut # (Auto) Lymph # (Auto) Hanson # (Auto) Eos # (Auto) Baso # (Auto) Absolute Nucleated RBC Nucleated RBC % (auto) Platelet Estimate Acanthocytes (Spur) APTT PTT Ratio Sodium 139 Potassium 3.4 L Chloride 101 Carbon Dioxide 36 H Anion Gap 2.0 L BUN 41 H Creatinine 2.01 H Est Cr Clr Drug Dosing 21.9 Est GFR ( Amer) 25.8 Est GFR (Non-Af Amer) 22.2 BUN/Creatinine Ratio 20.3 H Glucose 169 H POC Glucose 155 H 155 H Calcium 8.7 06/20/19 16:09 WBC RBC Hgb Hct MCV MCH MCHC RDW Std Deviation RDW Coeff of Portia Plt Count MPV Immature Gran % (Auto) Neut % (Auto) Lymph % (Auto) Hanson % (Auto) Eos % (Auto) Baso % (Auto) Immature Gran # (Auto) Neut # (Auto) Lymph # (Auto) Hanson # (Auto) Eos # (Auto) Baso # (Auto) Absolute Nucleated RBC Nucleated RBC % (auto) Platelet Estimate Acanthocytes (Spur) APTT PTT Ratio Sodium Potassium Chloride Carbon Dioxide Anion Gap BUN Creatinine Est Cr Clr Drug Dosing Est GFR ( Amer) Est GFR (Non-Af Amer) BUN/Creatinine Ratio Glucose POC Glucose 184 H Calcium Medications Administered Current Inpatient Medications Acetaminophen (Tylenol) 650 mg PO Q4H PRN PRN Reason: Pain or Fever Stop: 07/14/19 16:09 Last Admin: 06/16/19 22:49 Dose: 650 mg Documented by: [facility]) [facility] [place] Stop: 07/15/19 08:59 Last Admin: 06/20/19 08:31 Dose: 200 mg Documented by: Atorvastatin Calcium (Lipitor) 80 mg PO QAM [facility] Stop: 07/15/19 08:59 Last Admin: 06/20/19 08:33 Dose: 80 mg Documented by: Dextrose (Dextrose 50%) 25 - 50 ml IV UD PRN; Protocol PRN Reason: Hypoglycemia Protocol Stop: 07/14/19 16:09 Glucagon (Glucagen) 1 mg SQ UD PRN; Protocol PRN Reason: Hypoglycemia Protocol Stop: 07/14/19 16:09 Glucose (Dex4 Glucose) 4 - 8 tabs PO UD PRN; Protocol PRN Reason: Hypoglycemia Protocol Stop: 07/14/19 16:09 Glucose (Glucose 40%) 15 - 30 gm PO UD PRN; Protocol PRN Reason: Hypoglycemia Protocol Stop: 07/14/19 16:09 Bumetanide 1.5 mg/ Syringe 6 mls @ 4 mls/min IV BID17 [facility] Stop: 07/18/19 08:59 Last Admin: 06/20/19 17:08 Dose: 4 mls/min Documented by: Miscellaneous (Carbohydrates For Hypoglycemia) 15 - 30 gm PO UD PRN PRN Reason: Hypoglycemia Protocol Stop: 07/14/19 16:09 Ondansetron HCl (Zofran) 4 mg IV Q6H PRN PRN Reason: Nausea Stop: 07/14/19 16:09 Potassium Chloride (Klor-Con M20) 20 meq PO BID [facility] Stop: 07/20/19 20:59 Last Admin: 06/20/19 19:59 Dose: 20 meq Documented by: Rivaroxaban (Xarelto) 15 mg PO DAILY [facility] Stop: 07/21/19 08:59 PG Care Time/CCT Total # of Minutes Spent Total Time Spent with Patient: Total time spent is greater than 50% in coordination of care (as documented) at patient's floor/unit and/or counseling patient: (1) Anemia Anemia type: unspecified type Qualified Code(s): D64.9 - Anemia, unspecified
[2019-06-20] MEDS: POTASSIUM CHLORIDE 20 MEQ TABCR PO SCH (19:59)
[2019-06-21 07:20] LABS: Partial Thromboplastin Time 26.8 Seconds (21.0-31.0)
[2019-06-21] MEDS: BUMETANIDE 1.5 MG in SYRINGE 0 ML IV SCH ×2 (08:36→16:21)
[2019-06-21] MEDS: AMIODARONE 200 MG TAB PO SCH (08:36)
[2019-06-21] MEDS: ATORVASTATIN 40 MG TAB PO SCH (08:36)
[2019-06-21] MEDS: POTASSIUM CHLORIDE 20 MEQ TABCR PO SCH ×2 (08:36→20:58)
[2019-06-21] MEDS: RIVAROXABAN 15 MG TAB PO SCH (08:37)
--- NOTE | 2019-06-21 22:58 | Hospitalist Progress Note ---
Date of Service June 21, 2019 Assessment & Plan (1) Right heart failure: Acute on chronic diastolic CHF. Mostly right-sided and associated with severe pulmonary hypertension which is worsening. notes he and patient have been eating microwave dinners with up to 1,600 mg of sodium. We discussed monitoring for sodium in pre-packaged foods, and they will try to improve salt intake. - Continue Bumex IV -> Switched to BID on 06/17; however, her weights are not decreasing and she still has lots of LE edema. - Increased dose to 1.5 mg BID (06/18), tolerating well, it is working slowly -Negative > 7 liters since admission. -Patient appears to have R sided CHF with possible left sided diastolic CHF. -She appears to be clinically improving. will monitor. - Monitor I's and O's. Also monitor daily weights. - Continue supplemental oxygen. - Cardiology consulted - Appreciate recs (2) HTN (hypertension): BP appears stable (low 100s sytolic) - Holding beta-mary due to bradycardia and mild hypotension. difficult because she is having tachycardia despite the Amiodarone but beta blockade could make her slow, hypotensive again defer to cardiology (3) CAD (coronary artery disease): Cardiac medications as described above. Of note, patient has a left bundle branch block on EKG, unclear if this is new but not mentioned in previous cardiology notes. - Troponins negative at 0.04 x 3; no chest pain. (4) Atrial fibrillation: intermittent RVR, rates in the 120's, appears more like atrial flutter - Continue amiodarone - Initially held Xarelto for concern for GI bleed. - resume Xarelto 15mg daily defer to cardiology on what to add for rate control (5) CKD (chronic kidney disease) stage 4, GFR 15-29 ml/min: Baseline Cr ~1.7-2.0, eGFR ~20. - Presently at baseline, it is 2.0 despite being on Bumex - Monitor (6) DM (diabetes mellitus): A1c was 6.2% on 06/15/2019. Does not appear to be on any medications at this time. Has noted allergy to insulin. - Follow blood sugars - Have largely been under control from 110-160. (7) Anemia: Hgb was in the 14 range last year, but hgb has been substantially lower this admission. Initially concern for GI bleed. - Anemia labs show iron deficiency - Replete iron stores x 3 days (Last dose on 06/18). Hb has been stable (8) Asymptomatic bacteriuria: Routine UA done in the ED for no appreciable symptoms. 0/4 SIRS. Culture has now grown ESBL E. coli. I do not think this represents infection. - Contact precautions. No abx at this time. (9) DVT prophylaxis: Heparin 5000 units SQ Q12h Subjective 83 yo female reports no new symptoms. She states her legs have decrease in size. Review of Systems Review of Systems: All systems reviewed & are unremarkable except as noted in HPI & below Physical Exam Physical Exam: Constitutional: WD/WN, vitals as above Eyes: PERRL, conjunctivae normal, anicteric sclerae ENMT: external ear and nose normal, oropharynx normal Neck: trachea midline, no thyromegaly Respiratory: normal respiratory effort, lungs clear to auscultation Cardiovascular: Rate/Rhythm: + tachycardic and + irregularly irregular Heart Sounds: normal S1 and normal S2; no murmur Vessels: + JVD Extremities: normal capillary refill and + edema Gastrointestinal (Abdomen): normal bowel sounds, soft, nontender, no hepatosplenomegaly Musculoskeletal: no cyanosis or clubbing, extremities motor strength 5/5 Skin: no rashes, warm and dry Neurologic: patellar DTR's 2+ bilat, sensation intact and PERRL, EOMI, accommodation nl, no face palsy, no dysarthria Psychiatric: A+Ox3, euthymic affect Lymphatic: no cervical or axillary lymphadenopathy Results & Data Vital Signs (Past 12 Hours) Vital Signs Temp Pulse Pulse Resp BP BP Pulse Ox 06/21/19 19:18 37.0 C 73 18 95/58 L 92 06/21/19 15:16 36.9 C 76 18 120/70 90 06/21/19 11:22 37 C 126 H 20 109/70 95 PG Care Time/CCT Total # of Minutes Spent Total Time Spent with Patient: Total time spent is greater than 50% in coordination of care (as documented) at patient's floor/unit and/or counseling patient: (1) Anemia Anemia type: unspecified type Qualified Code(s): D64.9 - Anemia, unspecified
[2019-06-22 06:46] LABS: Partial Thromboplastin Ratio 1.2; Partial Thromboplastin Time 32.3 Seconds (21.0-31.0)
[2019-06-22] MEDS: BUMETANIDE 1.5 MG in SYRINGE 0 ML IV SCH ×2 (09:53→17:06)
[2019-06-22] MEDS: ATORVASTATIN 40 MG TAB PO SCH (09:53)
[2019-06-22] MEDS: MAGNESIUM HYDROXIDE SUSP 30 ML UDC PO PRN (09:53)
[2019-06-22] MEDS: POTASSIUM CHLORIDE 20 MEQ TABCR PO SCH ×2 (09:53→20:32)
[2019-06-22] MEDS: RIVAROXABAN 15 MG TAB PO SCH (09:53)
[2019-06-22] MEDS: AMIODARONE 200 MG TAB PO SCH (09:53)
[2019-06-22] MEDS ORDERED: METOPROLOL TARTRATE 25 MG TAB PO STA (19:40)
--- NOTE | 2019-06-22 22:48 | Hospitalist Progress Note ---
Date of Service June 22, 2019 Assessment & Plan (1) Right heart failure: Acute on chronic diastolic CHF. Mostly right-sided and associated with severe pulmonary hypertension which is worsening. notes he and patient have been eating microwave dinners with up to 1,600 mg of sodium. We discussed monitoring for sodium in pre-packaged foods, and they will try to improve salt intake. - Continue Bumex IV -> Switched to BID on 06/17; however, her weights are not decreasing and she still has lots of LE edema. - Increased dose to 1.5 mg BID (06/18), tolerating well. will continue to monitor for now. -Negative > 8 liters since admission. -Patient appears to have R sided CHF with possible left sided diastolic CHF. -She appears to be clinically improving. will monitor. - Monitor I's and O's. Also monitor daily weights. - Continue supplemental oxygen. - Cardiology consulted - Appreciate recs - (2) HTN (hypertension): BP appears stable (low 100s sytolic) - Holding beta-mary due to bradycardia and mild hypotension. difficult because she is having tachycardia despite the Amiodarone but beta blockade could make her slow, hypotensive again defer to cardiology (3) CAD (coronary artery disease): Cardiac medications as described above. Of note, patient has a left bundle branch block on EKG, unclear if this is new but not mentioned in previous cardiology notes. - Troponins negative at 0.04 x 3; no chest pain. (4) Atrial fibrillation: intermittent RVR, rates in the 120's, appears more like atrial flutter - Continue amiodarone - Initially held Xarelto for concern for GI bleed. - resume Xarelto 15mg daily defer to cardiology on what to add for rate control (5) CKD (chronic kidney disease) stage 4, GFR 15-29 ml/min: Baseline Cr ~1.7-2.0, eGFR ~20. - Presently at baseline, it is 2.0 despite being on Bumex - Monitor (6) DM (diabetes mellitus): A1c was 6.2% on 06/15/2019. Does not appear to be on any medications at this time. Has noted allergy to insulin. - Follow blood sugars - Have largely been under control from 110-160. (7) Anemia: Hgb was in the 14 range last year, but hgb has been substantially lower this admission. Initially concern for GI bleed. - Anemia labs show iron deficiency - Replete iron stores x 3 days (Last dose on 06/18). Hb has been stable (8) Asymptomatic bacteriuria: Routine UA done in the ED for no appreciable symptoms. 0/4 SIRS. Culture has now grown ESBL E. coli. I do not think this represents infection. - Contact precautions. No abx at this time. (9) DVT prophylaxis: Heparin 5000 units SQ Q12h Subjective Patient reports no new symptoms. Review of Systems Review of Systems: All systems reviewed & are unremarkable except as noted in HPI & below Physical Exam Physical Exam: Constitutional: WD/WN, vitals as above Eyes: PERRL, conjunctivae normal, anicteric sclerae ENMT: external ear and nose normal, oropharynx normal Neck: trachea midline, no thyromegaly Respiratory: normal respiratory effort, lungs clear to auscultation Cardiovascular: Rate/Rhythm: + tachycardic and + irregularly irregular Heart Sounds: normal S1 and normal S2; no murmur Vessels: + JVD Extremities: normal capillary refill and + edema Gastrointestinal (Abdomen): normal bowel sounds, soft, nontender, no hepatosplenomegaly Musculoskeletal: no cyanosis or clubbing, extremities motor strength 5/5 Skin: no rashes, warm and dry, decreased swelling. Neurologic: patellar DTR's 2+ bilat, sensation intact and PERRL, EOMI, accommodation nl, no face palsy, no dysarthria Psychiatric: A+Ox3, euthymic affect Lymphatic: no cervical or axillary lymphadenopathy Results & Data Vital Signs (Past 12 Hours) Vital Signs Temp Pulse Resp BP Pulse Ox 06/22/19 19:21 36.8 C 71 18 118/68 97 06/22/19 15:38 36.9 C 120 H 18 110/68 90 06/22/19 11:14 36.8 C 123 H 18 105/70 98 PG Care Time/CCT Total # of Minutes Spent Total Time Spent with Patient: Total time spent is greater than 50% in coordination of care (as documented) at patient's floor/unit and/or counseling patient: (1) Anemia Anemia type: unspecified type Qualified Code(s): D64.9 - Anemia, unspecified
[2019-06-23 05:33] LABS: Hematocrit (blood only) 30.6 % (37-47); Hemoglobin 8.9 g/dL (12.0-16.0); Mean Corpuscular Hemoglobin 26.9 pg (25-34); Mean Corpuscular Hgb Conc 29.1 g/dL (32-36); Mean Corpuscular Volume 92.4 fL (80-100); Mean Platelet Volume 10.5 fL (7.4-10.4); Platelet Count 240 K/uL (130-400); RDW Coefficient of Variation 19.7 % (11.5-14.5); RDW Standard Deviation 62.7 fL (36.4-46.3); Red Blood Count 3.31 M/uL (4.2-5.4); White Blood Count 7.84 K/uL (4.8-10.8)
[2019-06-23 05:41] LABS: Partial Thromboplastin Ratio 1.3; Partial Thromboplastin Time 33.9 Seconds (21.0-31.0)
[2019-06-23] MEDS: LACTULOSE SYRUP 30 GM/45 ML UDP PO SCH (08:06)
[2019-06-23] MEDS: BUMETANIDE 1.5 MG in SYRINGE 0 ML IV SCH ×2 (08:06→17:29)
[2019-06-23] MEDS: POTASSIUM CHLORIDE 20 MEQ TABCR PO SCH ×2 (08:07→21:37)
[2019-06-23] MEDS: AMIODARONE 200 MG TAB PO SCH (08:07)
[2019-06-23] MEDS: ATORVASTATIN 40 MG TAB PO SCH (08:07)
[2019-06-23] MEDS: RIVAROXABAN 15 MG TAB PO SCH (08:08)
[2019-06-23 09:16] LABS: Calcium 9.2 mg/dl (8.5-10.1); Creatinine Clr Calc Pharmacy 23.3 ml/min; Est GFR (African American) 27.8; Est GFR (Non-African American) 23.9; Potassium 4.3 mmol/L (3.5-5.1)
[2019-06-23] MEDS ORDERED: METOPROLOL TARTRATE 25 MG TAB PO SCH (10:30)
--- NOTE | 2019-06-23 20:03 | Hospitalist Progress Note ---
Date of Service June 23, 2019 Assessment & Plan (1) Right heart failure: Acute on chronic diastolic CHF. Mostly right-sided and associated with severe pulmonary hypertension which is worsening. notes he and patient have been eating microwave dinners with up to 1,600 mg of sodium. We discussed monitoring for sodium in pre-packaged foods, and they will try to improve salt intake. - Continue Bumex IV -> Switched to BID on 06/17; however, her weights are not decreasing and she still has lots of LE edema. - Increased dose to 1.5 mg BID (06/18), tolerating well. will continue to monitor for now. -Negative > 8.5 liters since admission. -Patient appears to have R sided CHF with possible left sided diastolic CHF. -She appears to be clinically improving. Renal function is worsening. will hold diuretics tomorrow and monitor patient. will monitor. - Monitor I's and O's. Also monitor daily weights. - Continue supplemental oxygen. - Cardiology consulted - Appreciate recs - (2) HTN (hypertension): BP appears stable (low 100s sytolic) - resumed metoprolol 25 mg po daily difficult because she is having tachycardia despite the Amiodarone but beta blockade could make her slow, hypotensive again defer to cardiology (3) CAD (coronary artery disease): Cardiac medications as described above. Of note, patient has a left bundle branch block on EKG, unclear if this is new but not mentioned in previous cardiology notes. - Troponins negative at 0.04 x 3; no chest pain. (4) Atrial fibrillation: intermittent RVR, rates in the 120's, appears more like atrial flutter now better as no longer tachycardic in afternoon of 06/23 - Continue amiodarone - Initially held Xarelto for concern for GI bleed. - resume Xarelto 15mg daily (5) CKD (chronic kidney disease) stage 4, GFR 15-29 ml/min: Baseline Cr ~1.7-2.0, eGFR ~20. - Presently at baseline, it is 1.8 despite being on Bumex; will hold bumex. - Monitor (6) DM (diabetes mellitus): A1c was 6.2% on 06/15/2019. Does not appear to be on any medications at this time. Has noted allergy to insulin. - Follow blood sugars - Have largely been under control from 110-160. (7) Anemia: Hgb was in the 14 range last year, but hgb has been substantially lower this admission. Initially concern for GI bleed. - Anemia labs show iron deficiency - Replete iron stores x 3 days (Last dose on 06/18). Hb has been stable (8) Asymptomatic bacteriuria: Routine UA done in the ED for no appreciable symptoms. 0/4 SIRS. Culture has now grown ESBL E. coli. I do not think this represents infection. - Contact precautions. No abx at this time. (9) DVT prophylaxis: Heparin 5000 units SQ Q12h Subjective Patient reports no new symptoms. She states swelling has improved. Review of Systems Review of Systems: All systems reviewed & are unremarkable except as noted in HPI & below Physical Exam Physical Exam: Constitutional: WD/WN, vitals as above Eyes: PERRL, conjunctivae normal, anicteric sclerae ENMT: external ear and nose normal, oropharynx normal Neck: trachea midline, no thyromegaly Respiratory: normal respiratory effort, lungs clear to auscultation Cardiovascular: Rate/Rhythm: + tachycardic and + irregularly irregular Heart Sounds: normal S1 and normal S2; no murmur Vessels: + JVD Extremities: normal capillary refill and + edema Gastrointestinal (Abdomen): normal bowel sounds, soft, nontender, no hepatosplenomegaly Musculoskeletal: no cyanosis or clubbing, extremities motor strength 5/5 Skin: no rashes, warm and dry, decreased swelling of lower extremity (still +3 edema), but less tense. Neurologic: patellar DTR's 2+ bilat, sensation intact and PERRL, EOMI, accommodation nl, no face palsy, no dysarthria Psychiatric: A+Ox3, euthymic affect Lymphatic: no cervical or axillary lymphadenopathy Results & Data Vital Signs (Past 12 Hours) Vital Signs Temp Pulse Resp BP Pulse Ox 06/23/19 18:55 36.5 C 61 18 97/63 L 95 06/23/19 15:06 36.6 C 62 18 95/58 L 93 06/23/19 12:08 36.8 C 64 16 104/68 95 PG Care Time/CCT Total # of Minutes Spent Total Time Spent with Patient: Total time spent is greater than 50% in coordination of care (as documented) at patient's floor/unit and/or counseling patient: (1) Anemia Anemia type: unspecified type Qualified Code(s): D64.9 - Anemia, unspecified
[2019-06-23] MEDS: METOPROLOL SUCC 25MG EXT REL TAB PO SCH (21:36)
[2019-06-24 06:58] LABS: Partial Thromboplastin Ratio 1.2; Partial Thromboplastin Time 32.9 Seconds (21.0-31.0)
[2019-06-24] MEDS: POTASSIUM CHLORIDE 20 MEQ TABCR PO SCH ×2 (10:12→20:09)
[2019-06-24] MEDS: AMIODARONE 200 MG TAB PO SCH (10:12)
[2019-06-24] MEDS: RIVAROXABAN 15 MG TAB PO SCH (10:13)
[2019-06-24] MEDS: ATORVASTATIN 40 MG TAB PO SCH (10:13)
[2019-06-24] MEDS: LACTULOSE SYRUP 30 GM/45 ML UDP PO SCH ×2 (10:13→19:10)
[2019-06-24] MEDS: METOPROLOL SUCC 25MG EXT REL TAB PO SCH (20:09)
[2019-06-24 20:58] LABS: BUN Creatinine Ratio 19.6 (10-20); Creatinine Clr Calc Pharmacy 20.8 ml/min; Est GFR (African American) 24.2; Est GFR (Non-African American) 20.8; Potassium 4.7 mmol/L (3.5-5.1)
--- NOTE | 2019-06-24 23:43 | Hospitalist Progress Note ---
Date of Service June 24, 2019 Assessment & Plan (1) Right heart failure: Acute on chronic diastolic CHF. Mostly right-sided and associated with severe pulmonary hypertension which is worsening. notes he and patient have been eating microwave dinners with up to 1,600 mg of sodium. We discussed monitoring for sodium in pre-packaged foods, and they will try to improve salt intake. - Continue Bumex IV -> Switched to BID on 06/17; however, her weights are not decreasing and she still has lots of LE edema. - Increased dose to 1.5 mg BID (06/18), tolerating well. will continue to monitor for now. -Negative > 8.9 liters since admission. -Patient appears to have R sided CHF with possible left sided diastolic CHF. -She appears to be clinically improving. held diuretic today due to creat bumping up. Now at 2.12. will monitor. - Monitor I's and O's. Also monitor daily weights. - Continue supplemental oxygen. - Cardiology consulted - Appreciate recs - (2) HTN (hypertension): BP appears stable (low 100s sytolic) - Holding beta-mary due to bradycardia and mild hypotension. difficult because she is having tachycardia despite the Amiodarone but beta blockade could make her slow, hypotensive again defer to cardiology (3) CAD (coronary artery disease): Cardiac medications as described above. Of note, patient has a left bundle branch block on EKG, unclear if this is new but not mentioned in previous cardiology notes. - Troponins negative at 0.04 x 3; no chest pain. (4) Atrial fibrillation: intermittent RVR, rates in the 120's, appears more like atrial flutter - Continue amiodarone - Initially held Xarelto for concern for GI bleed. - resume Xarelto 15mg daily defer to cardiology on what to add for rate control (5) CKD (chronic kidney disease) stage 4, GFR 15-29 ml/min: Baseline Cr ~1.7-2.0, eGFR ~20. - slightly higher at 2.12, will hold Bumex - Monitor may resume home dose regimen. (6) DM (diabetes mellitus): A1c was 6.2% on 06/15/2019. Does not appear to be on any medications at this time. Has noted allergy to insulin. - Follow blood sugars - Have largely been under control from 110-160. (7) Anemia: Hgb was in the 14 range last year, but hgb has been substantially lower this admission. Initially concern for GI bleed. - Anemia labs show iron deficiency - Replete iron stores x 3 days (Last dose on 06/18). Hb has been stable (8) Asymptomatic bacteriuria: Routine UA done in the ED for no appreciable symptoms. 0/4 SIRS. Culture has now grown ESBL E. coli. I do not think this represents infection. - Contact precautions. No abx at this time. (9) DVT prophylaxis: Heparin 5000 units SQ Q12h Dispo: Patient is getting close to discharge. If bMP is improved, may resume home regimen. Patient has lost 9 liters over course of her hospital stay. She is refusing rehab and would like to go home at discharge. Patient continues to have leg swelling but it has improved. Discharge date :Tuesday-Tuesday. Subjective Patient reports that today (despite not being on diuretics) her swelling has continued to decrease. Patient reports less pain in her legs as her skin is less tense. Patient reports no new symptoms. Reports no difficulty breathing, fevers/chills, chest pain, shortness of breath, abdominal pain, nausea, or vomiting. Review of Systems Review of Systems: All systems reviewed & are unremarkable except as noted in HPI & below Physical Exam Physical Exam: Constitutional: WD/WN, vitals as above Eyes: PERRL, conjunctivae normal, anicteric sclerae ENMT: external ear and nose normal, oropharynx normal Neck: trachea midline, no thyromegaly Respiratory: normal respiratory effort, lungs clear to auscultation Cardiovascular: Rate/Rhythm: +regular rate Heart Sounds: normal S1 and normal S2; no murmur Vessels: + JVD Extremities: normal capillary refill and + edema Gastrointestinal (Abdomen): normal bowel sounds, soft, nontender, no hepatosplenomegaly Musculoskeletal: no cyanosis or clubbing, extremities motor strength 5/5 Skin: no rashes, warm and dry, decreased swelling of lower extremity (still +3 edema), but less tense. Neurologic: patellar DTR's 2+ bilat, sensation intact and PERRL, EOMI, accommodation nl, no face palsy, no dysarthria Psychiatric: A+Ox3, euthymic affect Lymphatic: no cervical or axillary lymphadenopathy Results & Data Vital Signs (Past 12 Hours) Vital Signs Temp Pulse Resp BP Pulse Ox 06/24/19 23:30 36.5 C 56 L 18 96/61 L 98 06/24/19 18:59 36.8 C 65 20 107/69 93 06/24/19 15:13 36.7 C 62 18 99/66 L 94 06/24/19 12:08 36.7 C 65 18 95/58 L 90 PG Care Time/CCT Total # of Minutes Spent Total Time Spent with Patient: Total time spent is greater than 50% in coordination of care (as documented) at patient's floor/unit and/or counseling patient: (1) Anemia Anemia type: unspecified type Qualified Code(s): D64.9 - Anemia, unspecified
[2019-06-25 06:58] LABS: Partial Thromboplastin Ratio 1.2; Partial Thromboplastin Time 32.6 Seconds (21.0-31.0)
[2019-06-25] MEDS: AMIODARONE 200 MG TAB PO SCH (08:03)
[2019-06-25] MEDS: POTASSIUM CHLORIDE 20 MEQ TABCR PO SCH ×2 (08:03→20:54)
[2019-06-25] MEDS: ATORVASTATIN 40 MG TAB PO SCH (08:03)
[2019-06-25] MEDS: RIVAROXABAN 15 MG TAB PO SCH (08:03)
[2019-06-25 08:58] LABS: BUN Creatinine Ratio 20.8 (10-20); Calcium 9.5 mg/dl (8.5-10.1); Creatinine Clr Calc Pharmacy 22.3 ml/min; Est GFR (African American) 26.2; Est GFR (Non-African American) 22.6; Potassium 4.8 mmol/L (3.5-5.1)
[2019-06-25] MEDS: BUMETANIDE 1 MG in SYRINGE 0 ML IV SCH (16:09)
--- NOTE | 2019-06-25 17:22 | Cardiology Progress Note ---
Date of Service June 25, 2019 Assessment & Plan (1) CHF (congestive heart failure): She certainly has congestive heart failure with evidence of right heart failure on exam and echocardiography, however she may also have some component of left heart failure with diastolic dysfunction. She does not have systolic dysfunction. She will need ongoing diuresis and has significant fluid overload, she has not lost much fluid by weights, her exam has not changed much. Hopefully we will be able to diurese her without affecting her kidney function, her creatinine has remained around 2 but may improve with diuresis. I would much more aggressively diurese her as she still has quite a bit of fluid on board. It sounds as though she was doing well about a month ago, suggesting that this is not an ongoing difficulty but a recent decompensation. (2) CHRISTIANSON (dyspnea on exertion): She has had a lot of difficulty with dyspnea on exertion over the last month, this may be multifactorial including her anemia, her heart failure and fluid retention. We can see if this improves substantially with diuresis. If it is due to her lung disease there is probably little that can be done. (3) Anemia: She had a significant blood loss although we do not have laboratory studies over the last year that I can see. Over the long run she should be on anticoagulation, she had about 12 hours of some type of atrial arrhythmia, probably atrial flutter, this admission. Ideally I would recommend chronic anticoagulation and agree with Xarelto which she is currently on and seems to be tolerating. (4) Atrial fibrillation: She has atrial fibrillation and probably atrial flutter, it sounds as though she had a relatively recently because she was given some sort of pill by Dr. Perez although she does not know what it is, evidently this was given to her because her heart rate was fast. I would continue amiodarone. There appears to be some improvement in her arrhythmia over the last week or so on oral amiodarone. (5) Moderate to severe pulmonary hypertension: She has a longstanding history of pulmonary hypertension. This may improve with diuresis, although will still be present. This is probably secondary to her lung disease and therefore there is little that can be done. Hopefully this will return to her baseline. Subjective She is feeling somewhat better, however she notes that she still has quite a bit of edema and does not think she has lost much of it since hospitalization. She is still somewhat short of breath with activities. She is sitting at her bedside. Physical Exam Physical Exam: Constitutional: Alert, cooperative and in no distress. Pulmonary: Clear to auscultation bilaterally. Cardiac: Regular rhythm with no murmur, gallop or rub. Abdomen: Soft, nontender with normal bowel sounds. Extremities: +3 bilateral pretibial pitting edema. Skin: No rash, ecchymoses or petechiae. Results & Data Vital Signs (Past 12 Hours) Vital Signs Temp Pulse Resp BP Pulse Ox 06/25/19 15:29 36.4 C L 59 L 20 103/60 94 06/25/19 11:40 36.4 C L 53 L 19 90/49 L 95 06/25/19 07:23 36.3 C L 59 L 20 93/55 L 96 Laboratory Results Coagulation 06/25/19 Range/Units 06:28 APTT 32.6 H (21.0-31.0) Seconds Comprehensive Metabolic Panel 06/24/19 06/25/19 Range/Units 20:24 06:35 Sodium 137 138 (136-145) mmol/L Potassium 4.7 4.8 (3.5-5.1) mmol/L Chloride 100 99 (98-107) mmol/L Carbon Dioxide 34 H 31 (21-32) mmol/L BUN 42 H 41 H (7-18) mg/dl Creatinine 2.12 H 1.98 H (0.6-1.2) mg/dl Glucose 179 H 150 H (70-99) mg/dl Calcium 9.0 9.5 (8.5-10.1) mg/dl Intake and Output 06/25/19 06/25/19 06/25/19 06:59 14:59 22:59 Intake Total 100 / 855 560 / 560 Output Total 275 / 775 250 / 250 Balance -175 / 80 310 / 310 Intake: Oral 100 / 855 560 / 560 Output: Urine Amount (Catheter) 275 / 775 250 / 250 Ying/Indwelling 275 / 775 250 / 250 Other: Weight 91.9 kg Diagnostic Findings Telemetry: Sinus rhythm, she did have an episode of atrial fibrillation on the morning of June 24, 2019 but this was brief and none since. Heart rate generally in the 60s. PG Care Time/CCT Total # of Minutes Spent Total Time Spent with Patient: Total time spent is greater than 50% in coordination of care (as documented) at patient's floor/unit and/or counseling patient: (1) Anemia Anemia type: unspecified type Qualified Code(s): D64.9 - Anemia, unspecified
[2019-06-25] MEDS: METOPROLOL SUCC 25MG EXT REL TAB PO SCH (20:49)
--- NOTE | 2019-06-25 23:22 | Hospitalist Progress Note ---
Date of Service June 25, 2019 Assessment & Plan (1) Right heart failure: Acute on chronic diastolic CHF. Mostly right-sided and associated with severe pulmonary hypertension which is worsening. notes he and patient have been eating microwave dinners with up to 1,600 mg of sodium. We discussed monitoring for sodium in pre-packaged foods, and they will try to improve salt intake. - treated with Bumex 1.5mg IV BID for over a week, 9 liters out however, still with a lot of fluid to remove, doubt we can use just diuretics will consult nephrology for recommendations, fear that hemodialysis would be the only way to adequately/effectively remove fluid may not tolerate this well with right heart failure -Negative > 9 liters since admission. -Patient appears to have R sided CHF with possible left sided diastolic CHF. Bumex was held yesterday due to Cr of 2.1, will resume today at 1mg IV q12 defer to nephrology for further dosing (2) HTN (hypertension): BP appears stable (low 100s sytolic) continue metoprolol 25 mg po daily HR in the 50's today (3) CAD (coronary artery disease): Cardiac medications as described above. Of note, patient has a left bundle branch block on EKG, unclear if this is new but not mentioned in previous cardiology notes. - Troponins negative at 0.04 x 3; no chest pain. (4) Atrial fibrillation: intermittent RVR, rates in the 120's, appears more like atrial flutter now better as no longer tachycardic in afternoon of 06/23 - Continue amiodarone - Initially held Xarelto for concern for GI bleed. - resume Xarelto 15mg daily continue metoprolol, HR in the 50's (5) CKD (chronic kidney disease) stage 4, GFR 15-29 ml/min: Baseline Cr ~1.7-2.0, eGFR ~20. Cr is 1.9 today after holding Bumex on 06/25 will consult nephrology, suspect that HD may be the only way to remove fluid would likely need to fail more aggressive loop diuretics prior to going that route, if the patient is interested (6) DM (diabetes mellitus): A1c was 6.2% on 06/15/2019. Does not appear to be on any medications at this time. Has noted allergy to insulin. - Follow blood sugars - Have largely been under control from 110-160. (7) Anemia: Hgb was in the 14 range last year, but hgb has been substantially lower this admission. Initially concern for GI bleed. - Anemia labs show iron deficiency - Replete iron stores x 3 days (Last dose on 06/18). Hb has been stable (8) Asymptomatic bacteriuria: Routine UA done in the ED for no appreciable symptoms. 0/4 SIRS. Culture has now grown ESBL E. coli. I do not think this represents infection. - Contact precautions. No abx at this time. (9) DVT prophylaxis: Heparin 5000 units SQ Q12h Dispo: keep hospitalized for nephrology input has significant pitting edema in legs/feet, markedly volume overloaded keep on Bumex 1mg BID Subjective patient doing okay today, says that she walked from her chair to the door and back, not much dyspnea associated with it still with profound edema of legs and feet she does not feel much different despite negative balance of over 9 liters discussed with her that her renal function improved slightly without Bumex however, her Cr is hovering around 2 which is borderline stage IV to V disease discussed that we need to get nephrology involved, that she may not get the fluid off with diuretics alone she is eating well Review of Systems Review of Systems: All systems reviewed & are unremarkable except as noted in HPI & below Respiratory: + dyspnea on exertion (mild); no cough and no dyspnea Cardiovascular: + edema (pitting up to the thighs); no chest pain Gastrointestinal: no abdominal pain, no nausea, no vomiting, no constipation and no diarrhea/loose stools Physical Exam Constitutional: WD/WN, vitals as above Eyes: PERRL, conjunctivae normal, anicteric sclerae ENMT: external ear and nose normal, oropharynx normal Neck: trachea midline, no thyromegaly Respiratory: normal respiratory effort, lungs clear to auscultation Cardiovascular: Rate/Rhythm: + tachycardic and + irregularly irregular Heart Sounds: normal S1 and normal S2; no murmur Vessels: + JVD Extremities: normal capillary refill and + edema Gastrointestinal (Abdomen): normal bowel sounds, soft, nontender, no hepatosplenomegaly Musculoskeletal: no cyanosis or clubbing, extremities motor strength 5/5 Skin: no rashes, warm and dry Neurologic: patellar DTR's 2+ bilat, sensation intact and PERRL, EOMI, accomm odation nl, no face palsy, no dysarthria Psychiatric: A+Ox3, euthymic affect Lymphatic: no cervical or axillary lymphadenopathy Results & Data Vital Signs (Past 12 Hours) Vital Signs Temp Pulse Resp BP Pulse Ox 06/25/19 18:44 36.7 C 57 L 20 100/41 L 95 06/25/19 15:29 36.4 C L 59 L 20 103/60 94 06/25/19 11:40 36.4 C L 53 L 19 90/49 L 95 Laboratory Results Laboratory Results - last 24 hr 06/25/19 06/25/19 06/25/19 06:28 06:35 07:15 APTT 32.6 H PTT Ratio 1.2 Sodium 138 Potassium 4.8 Chloride 99 Carbon Dioxide 31 Anion Gap 8.0 BUN 41 H Creatinine 1.98 H Est Cr Clr Drug Dosing 22.3 Est GFR ( Amer) 26.2 Est GFR (Non-Af Amer) 22.6 BUN/Creatinine Ratio 20.8 H Glucose 150 H POC Glucose 169 H Calcium 9.5 Specimen Hemolysis 06/25/19 06/25/19 06/25/19 11:34 16:10 20:49 APTT PTT Ratio Sodium Potassium Chloride Carbon Dioxide Anion Gap BUN Creatinine Est Cr Clr Drug Dosing Est GFR ( Amer) Est GFR (Non-Af Amer) BUN/Creatinine Ratio Glucose POC Glucose 173 H 142 H 190 H Calcium Specimen Hemolysis Medications Administered Current Inpatient Medications Acetaminophen (Tylenol) 650 mg PO Q4H PRN PRN Reason: Pain or Fever Stop: 07/14/19 16:09 Last Admin: 06/16/19 22:49 Dose: 650 mg Documented by: Amiodarone HCl (Cordarone) [address] [facility] Stop: 07/15/19 08:59 Last Admin: 06/25/19 08:03 Dose: 200 mg Documented by: Atorvastatin Calcium (Lipitor) [address] [facility] Stop: 07/15/19 08:59 Last Admin: 06/25/19 08:03 Dose: 80 mg Documented by: Dextrose (Dextrose 50%) 25 - 50 ml IV UD PRN; Protocol PRN Reason: Hypoglycemia Protocol Stop: 07/14/19 16:09 Glucagon (Glucagen) 1 mg SQ UD PRN; Protocol PRN Reason: Hypoglycemia Protocol Stop: 07/14/19 16:09 Glucose (Dex4 Glucose) 4 - 8 tabs PO UD PRN; Protocol PRN Reason: Hypoglycemia Protocol Stop: 07/14/19 16:09 Glucose (Glucose 40%) 15 - 30 gm PO UD PRN; Protocol PRN Reason: Hypoglycemia Protocol Stop: 07/14/19 16:09 Bumetanide 1 mg/ Syringe 4 mls @ 4 mls/min IV DAILY@0900,1700 [facility] Stop: 07/25/19 16:59 Last Admin: 06/25/19 16:09 Dose: 4 mls/min Documented by: Magnesium Hydroxide (Milk Of Magnesia) 30 ml PO Q6H PRN PRN Reason: Constipation Stop: 07/21/19 19:57 Last Admin: 06/22/19 09:53 Dose: 30 ml Documented by: Metoprolol Succinate (Toprol Xl) 25 mg PO QPM [facility] Stop: 07/23/19 20:59 Last Admin: 06/25/19 20:49 Dose: Not Given Documented by: Miscellaneous (Carbohydrates For Hypoglycemia) 15 - 30 gm PO UD PRN PRN Reason: Hypoglycemia Protocol Stop: 07/14/19 16:09 Ondansetron HCl (Zofran) 4 mg IV Q6H PRN PRN Reason: Nausea Stop: 07/14/19 16:09 Potassium Chloride (Klor-Con M20) 20 meq PO BID [facility] Stop: 07/20/19 20:59 Last Admin: 06/25/19 20:54 Dose: 20 meq Documented by: Rivaroxaban (Xarelto) 15 mg PO DAILY [facility] Stop: 07/21/19 08:59 Last Admin: 06/25/19 08:03 Dose: 15 mg Documented by: PG Care Time/CCT Total # of Minutes Spent Total Time Spent with Patient: Total time spent is greater than 50% in coordination of care (as documented) at patient's floor/unit and/or counseling patient: (1) Anemia Anemia type: unspecified type Qualified Code(s): D64.9 - Anemia, unspecified
[2019-06-26 07:35] LABS: Partial Thromboplastin Ratio 1.2; Partial Thromboplastin Time 31.9 Seconds (21.0-31.0)
[2019-06-26 07:36] LABS: Hematocrit (blood only) 30.9 % (37-47); Hemoglobin 8.9 g/dL (12.0-16.0); Mean Corpuscular Hemoglobin 26.8 pg (25-34); Mean Corpuscular Hgb Conc 28.8 g/dL (32-36); Mean Corpuscular Volume 93.1 fL (80-100); Mean Platelet Volume 10.3 fL (7.4-10.4); Platelet Count 239 K/uL (130-400); RDW Coefficient of Variation 19.9 % (11.5-14.5); RDW Standard Deviation 66.3 fL (36.4-46.3); Red Blood Count 3.32 M/uL (4.2-5.4); White Blood Count 6.36 K/uL (4.8-10.8)
[2019-06-26] MEDS: AMIODARONE 200 MG TAB PO SCH (07:42)
[2019-06-26] MEDS: ATORVASTATIN 40 MG TAB PO SCH (07:42)
[2019-06-26] MEDS: RIVAROXABAN 15 MG TAB PO SCH (07:42)
[2019-06-26] MEDS: BUMETANIDE 1 MG in SYRINGE 0 ML IV SCH ×2 (07:43→17:43)
[2019-06-26] MEDS: POTASSIUM CHLORIDE 20 MEQ TABCR PO SCH ×2 (08:10→20:00)
[2019-06-26 09:24] LABS: Albumin Level 2.8 gm/dl (3.4-5.0); Calcium 9.3 mg/dl (8.5-10.1); Creatinine Clr Calc Pharmacy 21.3 ml/min; Est GFR (African American) 24.7; Est GFR (Non-African American) 21.3; Potassium 4.6 mmol/L (3.5-5.1)
--- NOTE | 2019-06-26 11:14 | Nephrology Consultation ---
Date of Consultation June 26, 2019 Assessment & Plan (1) CKD (chronic kidney disease) stage 4, GFR 15-29 ml/min: Arlen has stage IIIB /4 chronic kidney disease with baseline creatinine 1.7-2.0 in the setting of cardiorenal syndrome, diabetes and atherosclerotic disease. Admitted to the hospital with CHF exacerbation and weight gain, treated with IV diuretics with significant improvement in volume status and more than 9 L negative. However, she continues to have significant lower extremity edema and renal function has been slowly worsening on IV diuretics. Diuretics was on hold for a brief period of time however had to resume because of low urine output and persistent lower extremity edema. --recommend changing diuretics to Bumex 2 mg orally twice a day to see the response to oral dose prior to discharge --explained that considering her multiple significant other comorbidities and cor pulmonary, recurrent episodes of acute kidney injury, she has high risk for progressive worsening of renal function with high dose of diuretics. However, if renal function worsen she would be a poor candidate for renal replacement therapy, and dialysis may not provide any quality of life. --renal function is not far off from her baseline, electrolyte acceptable and urine output has been decent, with current GFR eventually she might need to be continued on higher dose of diuretics --goal will be to keep her slightly net negative and if renal function stays relatively stable with acceptable electrolyte she can be discharged in next few days. Discussed briefly with the patient about her thoughts regarding dialysis and advised her to make some decision however there is no pressing indication right now. If renal function does worsen or no significant improvement in her lower extremity edema with higher dose of diuretics, will revisit the options including conservative management of his advanced CKD, cor pulmonary versus renal replacement therapy. --start on IV iron --monitor renal function electrolyte daily Will follow Thank you for allowing me to participate in your patient's care. It was a pleasure to see Arlen (2) Right heart failure: (3) Anemia: (4) DM (diabetes mellitus): (5) Asymptomatic bacteriuria: History of Present Illness Reason for Consultation: Stage IIIB/4 CKD, diuretic resistant volume overload. Attending Physician: Ramesh Soni, History of Present Illness Arlen Boswell is a 83-year-old female with past medical history significant for stage IIIB/4 CKD with baseline creatinine variable from 1.7-2.0, Hypertension, diabetes, cor pulmonale with severe pulmonary hypertension, AFib and CHF, admitted to the hospital on 06/14/2019 with volume overload. Nephrology consult was requested to manage diuretic resistant volume overload in the setting of advanced CKD and worsening of renal function with diuretics. Electronic medical records are reviewed in detail during patient's visit. Arlen has history of stage IIIB/4 CKD with baseline creatinine 1.7-2.0 since August 2017 secondary to cardiorenal syndrome. Prior to that her kidney function has been decent with baseline creatinine 0.7-1.1. Urinalysis showed low grade proteinuria and some microscopic hematuria with bacteriuria. She was admitted on 06/14/2019 with CHF exacerbation and volume overload. At home she was on Bumex 1 mg twice a day. Since admission she has been on IV Bumex and she is more than 9 L negative total. Over last few days her renal function slowly started to worsen with creatinine 2.1-2.2 and diuretics was on hold. However, since she continues to have significant lower extremity edema diuretics was restarted yesterday, over last 24 hour urine output was 1 L and she was slightly net negative. She has been relatively hypotensive. Family history significant for diabetes and coronary artery disease but no history of chronic kidney disease or end-stage renal disease. Remote history of smoking more than 60 years ago, denies excessive alcohol intake. 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 with 2 grown children, lives at home with her . Has history of severe pulmonary hypertension and right heart failure requiring chronic diuretics. Has history of AFib with RVR, on anticoagulation with Xarelto and rate controlled with amiodarone and beta-mary. Diabetes, seems to be well controlled, with low grade proteinuria. History of coronary artery disease status post PTCA and stent x3. She reports feeling really well today, appetite good, denies any shortness of breath or chest pain. She continues to have significant lower extremity edema however improved from before. Allergies Allergy/AdvReac Type Severity Reaction Status Date / Time Insulins Allergy Severe syncope Verified 06/14/19 10:47 Home Medications Home Medications Medication Instructions Recorded Confirmed Type Hair, Skin, Nails with Biotin 1 tab PO DAILY 09/11/18 06/14/19 History Xarelto 15 mg PO QAM 09/11/18 06/14/19 History amiodarone 200 mg PO QAM 09/11/18 06/14/19 History atorvastatin 80 mg PO QAM 09/11/18 06/14/19 History bumetanide 1 mg PO 0800,1400 09/11/18 06/14/19 History potassium chloride 10 meq PO BID 09/11/18 06/14/19 History Patient History Medical History Atrial fibrillation Chronic obstructive pulmonary disease NO INHALERS Diabetes mellitus, type 2 H/O. NO MEDICATIONS CURRENTLY History of cardioversion Hyperlipidemia Hypertension On home oxygen therapy 3LPM VIA [place] @ HS. Surgical History History of cardiac cath ~2008 & ~2015 AT [facility] History of cataract surgery History of heart artery stent X2 (~2008 & ~2015) Family History Mother Family history of diabetes mellitus Father Family history of diabetes mellitus Social History Preferred Language: Romansh Communication Ability: Effective Sleep Technician Required: No Beliefs That Will Affect Care: None Current Living Situation: Spouse Feels Safe at Home: Yes Smoking Status: Former smoker Second Hand Exposure: Yes ; Hx Alcohol Use: No Hx Substance Use: No Review of Systems Review of Systems: All systems reviewed & are unremarkable except as noted in HPI & below Physical Exam Constitutional: WD/WN, vitals as above well developed and well nourished; no acute distress Eyes: PERRL, conjunctivae normal, anicteric sclerae ENMT: external ear and nose normal, oropharynx normal Ears: no hearing impairment Neck: trachea midline Respiratory: normal respiratory effort, lungs clear to auscultation no cough Auscultation: no crackles, no rales and no wheezes Cardiovascular: Rate/Rhythm: + irregularly irregular Heart Sounds: normal S1 and normal S2 Extremities: + edema (Two to 3+ bilateral lower extremity edema.) Gastrointestinal (Abdomen): normal bowel sounds, soft, nontender, no hepatosplenomegaly Percussion/Palpation: abdomen nontender, no guarding and abdomen not rigid Musculoskeletal: Extremities: extremities normal to inspection Gait: normal gait Skin: no rashes, warm and dry Neurologic: moves all extremities and awake Psychiatric: A+Ox3, euthymic affect Results & Data Vital Signs (Past 12 Hours) Vital Signs Temp Pulse Resp BP Pulse Ox 06/26/19 07:53 36.4 C L 60 18 109/60 96 06/26/19 03:28 36.4 C L 52 L 19 98/70 L 98 06/25/19 23:44 58 L 18 94/50 L 97 PG Care Time/CCT Total # of Minutes Spent Total Time Spent with Patient: Total time spent is greater than 50% in coordination of care (as documented) at patient's floor/unit and/or counseling patient: (1) Anemia Anemia type: unspecified type Qualified Code(s): D64.9 - Anemia, unspecified
[2019-06-26] MEDS: IRON SUCROSE 200 MG in 0.9 % SODIUM CHLORIDE 100 ML IV SCH (12:35)
--- NOTE | 2019-06-26 13:48 | Hospitalist Progress Note ---
Date of Service June 26, 2019 Assessment & Plan (1) Right heart failure: Acute on chronic diastolic CHF. Mostly right-sided and associated with severe pulmonary hypertension which is worsening. notes he and patient have been eating microwave dinners with up to 1,600 mg of sodium. We discussed monitoring for sodium in pre-packaged foods, and they will try to improve salt intake. - treated with Bumex 1.5mg IV BID for over a week, 9 liters out however, still with a lot of fluid to remove, doubt we can use just diuretics will consult nephrology for recommendations, fear that hemodialysis would be the only way to adequately/effectively remove fluid may not tolerate this well with right heart failure -Negative > 9 liters since admission. -Patient appears to have R sided CHF with possible left sided diastolic CHF. appreciate nephrology recommendations, will change Bumex to 2mg PO BID monitor urine output, repeat BMP in the morning if she tolerates this dose for 2-3 days and Cr is stable could consider d/c to home with close follow up (2) HTN (hypertension): BP has been stable continue metoprolol 25 mg po daily HR in the 60's today (3) CAD (coronary artery disease): Cardiac medications as described above. Of note, patient has a left bundle branch block on EKG, unclear if this is new but not mentioned in previous cardiology notes. - Troponins negative at 0.04 x 3; no chest pain. (4) Atrial fibrillation: intermittent RVR, rates in the 120's a few days ago, appeared more like atrial flutter now better, HR in the 60's - Continue amiodarone - Initially held Xarelto for concern for GI bleed. - resume Xarelto 15mg daily continue metoprolol (5) CKD (chronic kidney disease) stage 4, GFR 15-29 ml/min: Baseline Cr ~1.7-2.0, eGFR ~20. Cr is 2.08, K is 4.6 will increase Bumex to 2mg PO BID, monitor urine output, weight check BMP daily appreciate recommendations from Dr. Villavicencio, will need to be followed by nephrology as outpatient (6) DM (diabetes mellitus): A1c was 6.2% on 06/15/2019. Does not appear to be on any medications at this time. Has noted allergy to insulin. - Follow blood sugars - Have largely been under control, no hypoglycemia (7) Anemia: Hgb was in the 14 range last year, but hgb has been substantially lower this admission. Initially concern for GI bleed. - Anemia labs show iron deficiency - Replete iron stores x 3 days (Last dose on 06/18). further Venofer today (8) Asymptomatic bacteriuria: Routine UA done in the ED for no appreciable symptoms. 0/4 SIRS. Culture has now grown ESBL E. coli. I do not think this represents infection. - Contact precautions. No abx at this time. (9) DVT prophylaxis: Heparin 5000 units SQ Q12h Dispo: keep hospitalized for nephrology input has significant pitting edema in legs/feet, markedly volume overloaded potential for discharge in 2-3 days if Cr holds and she continues to make adequate urine with Bumex continue therapy please Subjective patient feeling well today, said she slept 6 hours last night, 1 hour this morning after breakfast she says she has a lot of energy, walking better will with marked edema discussed with Dr. Villavicencio, appreciate her input, will change Bumex to 2mg PO twice a day, monitor renal function she explained to patient that Bumex could make Cr worse discussed that HD would not really improve her quality of life if she were to choose to go on it, if needed the patient will think about whether or not she would want HD in the future breathing is stable, no chest pain eating well, no fever/chills reviewed labs, Cr is 2.08, K is 4.6 updated at the bedside, explained that she will be monitored a few days on Bumex 2mg BID, check labs in AM Review of Systems Review of Systems: All systems reviewed & are unremarkable except as noted in HPI & below Constitutional: no fever, no chills, no sweats, no fatigue and no weakness Respiratory: + dyspnea on exertion; no cough, no dyspnea and no wheezing Cardiovascular: + dyspnea on exertion and + edema; no chest pain, no dyspnea at rest, no palpitations and no syncope Physical Exam Constitutional: WD/WN, vitals as above Eyes: PERRL, conjunctivae normal, anicteric sclerae ENMT: external ear and nose normal, oropharynx normal Neck: trachea midline, no thyromegaly Respiratory: normal respiratory effort, lungs clear to auscultation Cardiovascular: Rate/Rhythm: regular rate and + irregularly irregular Heart Sounds: normal S1 and normal S2; no murmur Vessels: + JVD Extremities: normal capillary refill and + edema (pitting to thighs) Gastrointestinal (Abdomen): normal bowel sounds, soft, nontender, no hepatosplenomegaly Musculoskeletal: no cyanosis or clubbing, extremities motor strength 5/5 Skin: no rashes, warm and dry Neurologic: patellar DTR's 2+ bilat, sensation intact and PERRL, EOMI, accommodation nl, no face palsy, no dysarthria Psychiatric: A+Ox3, euthymic affect Lymphatic: no cervical or axillary lymphadenopathy Results & Data Vital Signs (Past 12 Hours) Vital Signs Temp Pulse Resp BP Pulse Ox 06/26/19 11:48 36.8 C 74 18 115/60 99 06/26/19 07:53 36.4 C L 60 18 109/60 96 06/26/19 03:28 36.4 C L 52 L 19 98/70 L 98 Laboratory Results Laboratory Results - last 24 hr 06/25/19 06/25/19 06/26/19 16:10 20:49 06:59 WBC 6.36 RBC 3.32 L Hgb 8.9 L Hct 30.9 L MCV 93.1 MCH 26.8 MCHC 28.8 L RDW Std Deviation 66.3 H RDW Coeff of Portia 19.9 H Plt Count 239 MPV 10.3 APTT PTT Ratio Sodium Potassium Chloride Carbon Dioxide Anion Gap BUN Creatinine Est Cr Clr Drug Dosing Est GFR ( Amer) Est GFR (Non-Af Amer) BUN/Creatinine Ratio Glucose POC Glucose 142 H 190 H Calcium Phosphorus Albumin 06/26/19 06/26/19 06/26/19 06:59 06:59 07:26 WBC RBC Hgb Hct MCV MCH MCHC RDW Std Deviation RDW Coeff of Portia Plt Count MPV APTT 31.9 H PTT Ratio 1.2 Sodium 139 Potassium 4.6 Chloride 100 Carbon Dioxide 33 H Anion Gap 6.0 BUN 44 H Creatinine 2.08 H Est Cr Clr Drug Dosing 21.3 Est GFR ( Amer) 24.7 Est GFR (Non-Af Amer) 21.3 BUN/Creatinine Ratio 21.0 H Glucose 139 H POC Glucose 161 H Calcium 9.3 Phosphorus 4.0 Albumin 2.8 L 06/26/19 11:15 WBC RBC Hgb Hct MCV MCH MCHC RDW Std Deviation RDW Coeff of Portia Plt Count MPV APTT PTT Ratio Sodium Potassium Chloride Carbon Dioxide Anion Gap BUN Creatinine Est Cr Clr Drug Dosing Est GFR ( Amer) Est GFR (Non-Af Amer) BUN/Creatinine Ratio Glucose POC Glucose 168 H Calcium Phosphorus Albumin Medications Administered Current Inpatient Medications Acetaminophen (Tylenol) 650 mg PO Q4H PRN PRN Reason: Pain or Fever Stop: 07/14/19 16:09 Last Admin: 06/16/19 22:49 Dose: 650 mg Documented by: [facility]arone [facility] ([facility]) [facility] [place] Stop: 07/15/19 08:59 Last Admin: 06/26/19 07:42 Dose: 200 mg Documented by: Atorvastatin Calcium (Lipitor) 80 mg PO QAM [facility] Stop: 07/15/19 08:59 Last Admin: 06/26/19 07:42 Dose: 80 mg Documented by: Dextrose (Dextrose 50%) 25 - 50 ml IV UD PRN; Protocol PRN Reason: Hypoglycemia Protocol Stop: 07/14/19 16:09 Glucagon (Glucagen) 1 mg SQ UD PRN; Protocol PRN Reason: Hypoglycemia Protocol Stop: 07/14/19 16:09 Glucose (Dex4 Glucose) 4 - 8 tabs PO UD PRN; Protocol PRN Reason: Hypoglycemia Protocol Stop: 07/14/19 16:09 Glucose (Glucose 40%) 15 - 30 gm PO UD PRN; Protocol PRN Reason: Hypoglycemia Protocol Stop: 07/14/19 16:09 Bumetanide 1 mg/ Syringe 4 mls @ 4 mls/min IV DAILY@0900,1700 [facility] Stop: 07/25/19 16:59 Last Admin: 06/26/19 07:43 Dose: 4 mls/min Documented by: Iron Sucrose 200 mg/ Sodium (Chloride) 110 mls @ 220 mls/hr IV DAILY [facility] Stop: 07/01/19 11:44 Last Infusion: 06/26/19 13:05 Dose: Infused Documented by: Magnesium Hydroxide (Milk Of Magnesia) 30 ml PO Q6H PRN PRN Reason: Constipation Stop: 07/21/19 19:57 Last Admin: 06/22/19 09:53 Dose: 30 ml Documented by: Metoprolol Succinate (Toprol Xl) 25 mg PO QPM [facility] Stop: 07/23/19 20:59 Last Admin: 06/25/19 20:49 Dose: Not Given Documented by: Miscellaneous (Carbohydrates For Hypoglycemia) 15 - 30 gm PO UD PRN PRN Reason: Hypoglycemia Protocol Stop: 07/14/19 16:09 Ondansetron HCl (Zofran) 4 mg IV Q6H PRN PRN Reason: Nausea Stop: 07/14/19 16:09 Potassium Chloride (Klor-Con M20) 20 meq PO BID [facility] Stop: 07/20/19 20:59 Last Admin: 06/26/19 08:10 Dose: 20 meq Documented by: Rivaroxaban (Xarelto) 15 mg PO DAILY [facility] Stop: 07/21/19 08:59 Last Admin: 06/26/19 07:42 Dose: 15 mg Documented by: PG Care Time/CCT Total # of Minutes Spent Total Time Spent with Patient: Total time spent is greater than 50% in graphic coordinator rdination of care (as documented) at patient's floor/unit and/or counseling patient: (1) Anemia Anemia type: unspecified type Qualified Code(s): D64.9 - Anemia, unspecified
[2019-06-26] MEDS: METOPROLOL SUCC 25MG EXT REL TAB PO SCH (20:01)
[2019-06-27] MEDS: MAGNESIUM HYDROXIDE SUSP 30 ML UDC PO PRN (06:03)
[2019-06-27 07:16] LABS: Partial Thromboplastin Ratio 1.1; Partial Thromboplastin Time 29.3 Seconds (21.0-31.0)
[2019-06-27 07:41] LABS: Albumin Level 2.6 gm/dl (3.4-5.0); BUN Creatinine Ratio 21.4 (10-20); Creatinine Clr Calc Pharmacy 21.8 ml/min; Est GFR (African American) 25.3; Est GFR (Non-African American) 21.8; Phosphorus 3.7 mg/dl (2.5-4.9); Potassium 4.4 mmol/L (3.5-5.1)
[2019-06-27] MEDS: BUMETANIDE 1 MG in SYRINGE 0 ML IV SCH (08:25)
[2019-06-27] MEDS: ATORVASTATIN 40 MG TAB PO SCH (08:25)
[2019-06-27] MEDS: AMIODARONE 200 MG TAB PO SCH (08:26)
[2019-06-27] MEDS: RIVAROXABAN 15 MG TAB PO SCH (08:26)
[2019-06-27] MEDS: POTASSIUM CHLORIDE 20 MEQ TABCR PO SCH ×2 (08:26→20:20)
[2019-06-27] MEDS: IRON SUCROSE 200 MG in 0.9 % SODIUM CHLORIDE 100 ML IV SCH (08:37)
--- NOTE | 2019-06-27 09:26 | Cardiology Progress Note ---
Date of Service June 27, 2019 Assessment & Plan (1) CHF (congestive heart failure): She presented with fluid retention in part from right heart failure and possibly from diastolic left heart failure. I believe her fluid status has remained stable during her hospitalization, it is reported that she lost 9 L but that would likely have been associated with a weight loss, her weight has really not changed during the admission. I believe we have not diuresed her to any significant extent. I do not believe we have tried very hard to diurese her, and we do not know what her kidney function would do with diuresis. Often it improves and we did not do that experiment. My approach would be to diurese her and see what happens with her creatinine, but I will leave that up to nephrology and the primary service. (2) CHRISTIANSON (dyspnea on exertion): She has had a lot of difficulty with dyspnea on exertion over the last month, this may be multifactorial including her anemia, her heart failure and fluid retention. We can see if this improves substantially with diuresis. If it is due to her lung disease there is probably little that can be done. (3) Anemia: She had a significant blood loss although we do not have laboratory studies over the last year that I can see. Over the long run she should be on anticoagulation, she had about 12 hours of some type of atrial arrhythmia, probably atrial flutter, this admission. Ideally I would recommend chronic anticoagulation and agree with Xarelto which she is currently on and seems to be tolerating. (4) Atrial fibrillation: She has atrial fibrillation and probably atrial flutter, it sounds as though she had a relatively recently because she was given some sort of pill by Dr. Perez although she does not know what it is, evidently this was given to her because her heart rate was fast. I would continue amiodarone and I would discharge her on the current dose when she goes home. There appears to be si gnificant improvement in her arrhythmia over the last week or so on oral amiodarone. (5) Moderate to severe pulmonary hypertension: She has a longstanding history of pulmonary hypertension. This may improve with diuresis, although will still be present. This is probably secondary to her lung disease and therefore there is little that can be done. Hopefully this will return to her baseline. Subjective She is feeling fairly well today, she has her feet propped up and tells me that feels better. No shortness of breath. Physical Exam Physical Exam: Constitutional: Alert, cooperative and in no distress. Pulmonary: Clear to auscultation bilaterally. Cardiac: Regular rhythm with no murmur, gallop or rub. Abdomen: Soft, nontender with normal bowel sounds. Extremities: +3 bilateral pretibial pitting edema. Skin: No rash, ecchymoses or petechiae. Results & Data Vital Signs (Past 12 Hours) Vital Signs Temp Pulse Pulse Resp BP Pulse Ox 06/27/19 07:38 36.5 C 66 20 93/46 L 100 06/27/19 03:35 36.6 C 63 18 122/71 97 06/27/19 00:00 62 06/26/19 23:41 36.8 C 63 18 103/66 95 Laboratory Results Coagulation 06/27/19 Range/Units 06:53 APTT 29.3 (21.0-31.0) Seconds Comprehensive Metabolic Panel 06/26/19 06/27/19 Range/Units 06:59 06:53 Sodium 139 138 (136-145) mmol/L Potassium 4.6 4.4 (3.5-5.1) mmol/L Chloride 100 103 (98-107) mmol/L Carbon Dioxide 33 H 31 (21-32) mmol/L BUN 44 H 44 H (7-18) mg/dl Creatinine 2.08 H 2.04 H (0.6-1.2) mg/dl Glucose 139 H 131 H (70-99) mg/dl Calcium 9.3 9.0 (8.5-10.1) mg/dl Albumin 2.8 L 2.6 L (3.4-5.0) gm/dl Intake and Output 06/26/19 06/27/19 06/27/19 22:59 06:59 14:59 Intake Total 222 / 812 110 / 110 Output Total 400 / 400 Balance 222 / 412 -400 / 412 110 / 110 Intake: IV 110 / 110 Venofer 200 mg In Sodium 110 / 110 Chloride 100 ml @ 220 mls/hr IV DAILY [facility] Rx#:[id number] Oral 222 / 702 Output: Urine Amount (Catheter) 400 / 400 Ying/Indwelling 400 / 400 Other: Other Intake Source sips with meds Weight 92.8 kg Diagnostic Findings Telemetry: Sinus rhythm in the 60s. PG Care Time/CCT Total # of Minutes Spent Total Time Spent with Patient: Total time spent is greater than 50% in coordination of care (as documented) at patient's floor/unit and/or counseling patient: (1) Anemia Anemia type: unspecified type Qualified Code(s): D64.9 - Anemia, unspecified
--- NOTE | 2019-06-27 11:39 | Nephrology Progress Note ---
Date of Service June 27, 2019 Assessment & Plan (1) CKD (chronic kidney disease) stage 4, GFR 15-29 ml/min: Arlen has stage IIIB /4 chronic kidney disease with baseline creatinine 1.7-2.0 in the setting of cardiorenal syndrome, diabetes and atherosclerotic disease. Admitted to the hospital with CHF exacerbation and weight gain, treated with IV diuretics with significant improvement in volume status and more than 9 L negative. However, she continues to have significant lower extremity edema and renal function has been slowly worsening on IV diuretics. Diuretics was on hold for a brief period of time however had to resume because of low urine output and persistent lower extremity edema. --increase Bumex to 3 milligram twice a day --explained that considering her multiple significant other comorbidities and cor pulmonary, recurrent episodes of acute kidney injury, she has high risk for progressive worsening of renal function with high dose of diuretics. However, if renal function worsen she would be a poor candidate for renal replacement therapy, and dialysis may not provide any quality of life. --renal function is not far off from her baseline, electrolyte acceptable and urine output has been decent, with current GFR eventually she might need to be continued on higher dose of diuretics --goal will be to keep her slightly net negative and if renal function stays relatively stable with acceptable electrolyte she can be discharged in next few days. Discussed briefly with the patient about her thoughts regarding dialysis and advised her to make some decision however there is no pressing indication right now. If renal function does worsen or no significant improvement in her lower extremity edema with higher dose of diuretics, will revisit the options including conservative management of his advanced CKD, cor pulmonary versus renal replacement therapy. --start on IV iron --monitor renal function electrolyte daily Will follow (2) Right heart failure: (3) Anemia: (4) DM (diabetes mellitus): (5) Asymptomatic bacteriuria: Subjective Arlen Was seen and examined in her room this morning. Overall she has been feeling better. Denies any shortness of breath or chest pain. Renal function has been stable with acceptable electrolytes. Urine output has been decent however not what it would be expected from current dose of IV diuretics. Review of Systems Review of Systems: All systems reviewed & are unremarkable except as noted in HPI & below Physical Exam Constitutional: well developed and well nourished; no acute distress Respiratory: normal respiratory effort, lungs clear to auscultation Cardiovascular: Rate/Rhythm: regular rate and regular rhythm Heart Sounds: normal S1 and normal S2 Extremities: + edema Neurologic: moves all extremities and awake; not confused Psychiatric: A+Ox3, euthymic affect Results & Data Vital Signs (Past 12 Hours) Vital Signs Temp Pulse Pulse Resp BP Pulse Ox 06/27/19 08:00 62 06/27/19 07:38 36.5 C 66 20 93/46 L 100 06/27/19 03:35 36.6 C 63 18 122/71 97 06/27/19 00:00 62 06/26/19 23:41 36.8 C 63 18 103/66 95 PG Care Time/CCT Total # of Minutes Spent Total Time Spent with Patient: Total time spent is greater than 50% in coordination of care (as documented) at patient's floor/unit and/or counseling patient: (1) Anemia Anemia type: unspecified type Qualified Code(s): D64.9 - Anemia, unspecified
--- NOTE | 2019-06-27 13:02 | Hospitalist Progress Note ---
Date of Service June 27, 2019 Assessment & Plan (1) Right heart failure: Acute on chronic diastolic CHF. Mostly right-sided and associated with severe pulmonary hypertension which is worsening. notes he and patient have been eating microwave dinners with up to 1,600 mg of sodium. We discussed monitoring for sodium in pre-packaged foods, and they will try to improve salt intake. - treated with Bumex 1.5mg IV BID for over a week, 9 liters out however, still with a lot of fluid to remove -Patient appears to have R sided CHF with possible left sided diastolic CHF. appreciate nephrology recommendations, will increase Bumex to 3mg PO BID monitor urine output, repeat BMP in the morning if she tolerates this dose and Cr is stable could consider d/c to home with close follow up on Tuesday (2) HTN (hypertension): BP has been low normal and even low at times continue metoprolol 25 mg po daily with hold parameters HR in the 60's today (3) CAD (coronary artery disease): Cardiac medications as described above. Of note, patient has a left bundle branch block on EKG, unclear if this is new but not mentioned in previous cardiology notes. - Troponins negative at 0.04 x 3; no chest pain. (4) Atrial fibrillation: intermittent RVR, rates in the 120's earlier in the stay, appeared more like atrial flutter now better, HR in the 60's - Continue amiodarone - continue Xarelto - continue metoprolol (5) CKD (chronic kidney disease) stage 4, GFR 15-29 ml/min: Baseline Cr ~1.7-2.0, eGFR ~20. Cr is 2.04, K is 4.4 will increase Bumex to 3mg PO BID, monitor urine output, weight check BMP daily appreciate recommendations from Dr. Villavicencio, will need to be followed by nephrology as outpatient (6) DM (diabetes mellitus): A1c was 6.2% on 06/15/2019. Does not appear to be on any medications at this time. Has noted allergy to insulin. - Follow blood sugars - Have largely been under control, no hypoglycemia (7) Anemia: Hgb was in the 14 range last year, but hgb has been substantially lower this admission. Initially concern for GI bleed. - Anemia labs show iron deficiency - Replete iron stores x 3 days (Last dose on 06/18). further Venofer as needed (8) Asymptomatic bacteriuria: Routine UA done in the ED for no appreciable symptoms. 0/4 SIRS. Culture has now grown ESBL E. coli. I do not think this represents infection. - Contact precautions. No abx at this time. (9) DVT prophylaxis: Xarelto Dispo: keep hospitalized for nephrology input has significant pitting edema in legs/feet, markedly volume overloaded potential for discharge on Tuesday if Cr holds and she continues to make adequate urine with Bumex continue therapy please Subjective patient doing okay today, has her feet propped up swelling is going down slowly, breathing well no chest pain or pressure appetite is fine, eating most of her food still with almonte in place, making adequate urine Cr holding at 2.0 d/w Dr. Villavicencio, will increase Bumex to 3mg PO BID, monitor response and Cr d/w patient, potentially go home on Tuesday if she remains stable she refuses to consider going to rehab Review of Systems Review of Systems: All systems reviewed & are unremarkable except as noted in HPI & below Constitutional: + weakness; no fever and no fatigue Respiratory: + dyspnea on exertion; no cough and no dyspnea Cardiovascular: + edema; no chest pain Gastrointestinal: no abdominal pain, no nausea, no vomiting, no constipation and no diarrhea/loose stools Physical Exam Constitutional: WD/WN, vitals as above Eyes: PERRL, conjunctivae normal, anicteric sclerae ENMT: external ear and nose normal, oropharynx normal Neck: trachea midline, no thyromegaly Respiratory: normal respiratory effort, lungs clear to auscultation Cardiovascular: Rate/Rhythm: regular rate and + irregularly irregular Heart Sounds: normal S1 and normal S2; no murmur Vessels: + JVD Extremities: normal capillary refill and + edema (pitting to knees) Gastrointestinal (Abdomen): normal bowel sounds, soft, nontender, no hepatosplenomegaly Musculoskeletal: no cyanosis or clubbing, extremities motor strength 5/5 Skin: no rashes, warm and dry Neurologic: patellar DTR's 2+ bilat, sensation intact and PERRL, EOMI, accommodation nl, no face palsy, no dysarthria Psychiatric: A+Ox3, euthymic affect Lymphatic: no cervical or axillary lymphadenopathy Results & Data Vital Signs (Past 12 Hours) Vital Signs Temp Pulse Pulse Resp BP Pulse Ox 06/27/19 11:51 108/72 06/27/19 11:41 36.5 C 69 20 88/55 L 95 06/27/19 08:00 62 06/27/19 07:38 36.5 C 66 20 93/46 L 100 06/27/19 03:35 36.6 C 63 18 122/71 97 Laboratory Results Laboratory Results - last 24 hr 06/26/19 06/26/19 06/27/19 16:23 19:49 06:53 APTT 29.3 PTT Ratio 1.1 Sodium Potassium Chloride Carbon Dioxide Anion Gap BUN Creatinine Est Cr Clr Drug Dosing Est GFR ( Amer) Est GFR (Non-Af Amer) BUN/Creatinine Ratio Glucose POC Glucose 157 H 169 H Calcium Phosphorus Albumin 06/27/19 06/27/19 06/27/19 06:53 06:58 11:03 APTT PTT Ratio Sodium 138 Potassium 4.4 Chloride 103 Carbon Dioxide 31 Anion Gap 4.0 BUN 44 H Creatinine 2.04 H Est Cr Clr Drug Dosing 21.8 Est GFR ( Amer) 25.3 Est GFR (Non-Af Amer) 21.8 BUN/Creatinine Ratio 21.4 H Glucose 131 H POC Glucose 141 H 172 H Calcium 9.0 Phosphorus 3.7 Albumin 2.6 L Medications Administered Current Inpatient Medications Acetaminophen (Tylenol) 650 mg PO Q4H PRN PRN Reason: Pain or Fever Stop: 07/14/19 16:09 Last Admin: 06/16/19 22:49 Dose: 650 mg Documented by: Amiodarone HCl (Cordarone) [facility] [place] Stop: 07/15/19 08:59 Last Admin: 06/27/19 08:26 Dose: 200 mg Documented by: Atorvastatin Calcium (Lipitor) 80 mg PO QAM [facility] Stop: 07/15/19 08:59 Last Admin: 06/27/19 08:25 Dose: 80 mg Documented by: Bumetanide (Bumex) 3 mg PO BID17 [facility] Stop: 07/27/19 16:59 Dextrose (Dextrose 50%) 25 - 50 ml IV UD PRN; Protocol PRN Reason: Hypoglycemia Protocol Stop: 07/14/19 16:09 Glucagon (Glucagen) 1 mg SQ UD PRN; Protocol PRN Reason: Hypoglycemia Protocol Stop: 07/14/19 16:09 Glucose (Dex4 Glucose) 4 - 8 tabs PO UD PRN; Protocol PRN Reason: Hypoglycemia Protocol Stop: 07/14/19 16:09 Glucose (Glucose 40%) 15 - 30 gm PO UD PRN; Protocol PRN Reason: Hypoglycemia Protocol Stop: 07/14/19 16:09 Iron Sucrose 200 mg/ Sodium (Chloride) 110 mls @ 220 mls/hr IV DAILY [facility] Stop: 07/01/19 11:44 Last Infusion: 06/27/19 09:07 Dose: Infused Documented by: Magnesium Hydroxide (Milk Of Magnesia) 30 ml PO Q6H PRN PRN Reason: Constipation Stop: 07/21/19 19:57 Last Admin: 06/27/19 06:03 Dose: 30 ml Documented by: Metoprolol Succinate (Toprol Xl) 25 mg PO QPM [facility] Stop: 07/23/19 20:59 Last Admin: 06/26/19 20:01 Dose: Not Given Documented by: Miscellaneous (Carbohydrates For Hypoglycemia) 15 - 30 gm PO UD PRN PRN Reason: Hypoglycemia Protocol Stop: 07/14/19 16:09 Ondansetron HCl (Zofran) 4 mg IV Q6H PRN PRN Reason: Nausea Stop: 07/14/19 16:09 Potassium Chloride (Klor-Con M20) 20 meq PO BID [facility] Stop: 07/20/19 20:59 Last Admin: 06/27/19 08:26 Dose: 20 meq Documented by: Rivaroxaban (Xarelto) 15 mg PO DAILY [facility] Stop: 07/21/19 08:59 Last Admin: 06/27/19 08:26 Dose: 15 mg Documented by: PG Care Time/CCT Total # of Minutes Spent Total Time Spent with Patient: Total time spent is greater than 50% in coordination of care (as documented) at patient's floor/unit and/or counseling patient: (1) Anemia Anemia type: unspecified type Qualified Code(s): D64.9 - Anemia, unspecified
[2019-06-27] MEDS: BUMETANIDE 1 MG TAB PO SCH (16:53)
[2019-06-27] MEDS ORDERED: BUMETANIDE 2 MG in SYRINGE 0 ML IV SCH (17:00)
[2019-06-27] MEDS: METOPROLOL SUCC 25MG EXT REL TAB PO SCH (20:20)
[2019-06-28 07:15] LABS: Partial Thromboplastin Ratio 1.3; Partial Thromboplastin Time 33.9 Seconds (21.0-31.0)
[2019-06-28 07:31] LABS: Albumin Level 2.9 gm/dl (3.4-5.0); BUN Creatinine Ratio 19.5 (10-20); Calcium 9.1 mg/dl (8.5-10.1); Est GFR (African American) 25.8; Est GFR (Non-African American) 22.2; Phosphorus 3.8 mg/dl (2.5-4.9); Potassium 4.2 mmol/L (3.5-5.1)
[2019-06-28] MEDS: ATORVASTATIN 40 MG TAB PO SCH (08:52)
[2019-06-28] MEDS: POTASSIUM CHLORIDE 20 MEQ TABCR PO SCH ×2 (08:53→20:26)
[2019-06-28] MEDS: BUMETANIDE 1 MG TAB PO SCH ×2 (08:53→16:55)
[2019-06-28] MEDS: RIVAROXABAN 15 MG TAB PO SCH (08:53)
[2019-06-28] MEDS: AMIODARONE 200 MG TAB PO SCH (08:53)
[2019-06-28] MEDS: IRON SUCROSE 200 MG in 0.9 % SODIUM CHLORIDE 100 ML IV SCH (08:58)
--- NOTE | 2019-06-28 09:53 | Nephrology Progress Note ---
Date of Service June 28, 2019 Assessment & Plan (1) CKD (chronic kidney disease) stage 4, GFR 15-29 ml/min: Arlen has stage IIIB /4 chronic kidney disease with baseline creatinine 1.7-2.0 in the setting of cardiorenal syndrome, diabetes and atherosclerotic disease. Admitted to the hospital with CHF exacerbation and weight gain, treated with IV diuretics with significant improvement in volume status and more than 9 L negative. However, she continues to have significant lower extremity edema and renal function has been slowly worsening on IV diuretics. Diuretics was on hold for a brief period of time however had to resume because of low urine output and persistent lower extremity edema. --continue Bumex to 3 milligram twice a day, while monitoring volume status, renal function and electrolyte --renal function is not far off from her baseline, electrolyte acceptable and urine output has been decent, with current GFR eventually she might need to be continued on higher dose of diuretics --goal will be to keep her slightly net negative and if renal function stays relatively stable with acceptable electrolyte she can be discharged in next few days. Discussed briefly with the patient about her thoughts regarding dialysis and advised her to make some decision however there is no pressing indication right now. If renal function does worsen or no significant improvement in her lower extremity edema with higher dose of diuretics, will revisit the options including conservative management of his advanced CKD, cor pulmonary versus renal replacement therapy. --continue on IV iron Will follow (2) Right heart failure: (3) Anemia: (4) DM (diabetes mellitus): (5) Asymptomatic bacteriuria: Subjective Arlen Was seen and examined in her room this morning. Overall she has been feeling better. Denies any shortness of breath or chest pain. Renal function has been stable with acceptable electrolytes. Urine output increased , net negative >1.7 L on Bumex 3 BID. Review of Systems Review of Systems: All systems reviewed & are unremarkable except as noted in HPI & below Physical Exam Constitutional: WD/WN, vitals as above no acute distress Neck: normal visual inspection Respiratory: normal respiratory effort, lungs clear to auscultation Cardiovascular: Rate/Rhythm: regular rate and regular rhythm Heart Sounds: normal S1 and normal S2 Extremities: + edema (2-3 + b/l LE edema) Neurologic: moves all extremities and awake; not confused Psychiatric: A+Ox3, euthymic affect Results & Data Vital Signs (Past 12 Hours) Vital Signs Temp Pulse Pulse Resp BP BP Pulse Ox 06/28/19 07:14 36.3 C L 68 16 100/62 97 06/28/19 05:18 36.4 C L 73 20 112/73 94 06/27/19 23:49 64 06/27/19 23:45 36.8 C 63 19 114/66 96 PG Care Time/CCT Total # of Minutes Spent Total Time Spent with Patient: Total time spent is greater than 50% in coordination of care (as documented) at patient's floor/unit and/or counseling patient: (1) Anemia Anemia type: unspecified type Qualified Code(s): D64.9 - Anemia, unspecified
--- NOTE | 2019-06-28 16:41 | Hospitalist Progress Note ---
Date of Service June 28, 2019 Assessment & Plan (1) Right heart failure: Acute on chronic diastolic CHF. Mostly right-sided and associated with severe pulmonary hypertension which is worsening. notes he and patient have been eating microwave dinners with up to 1,600 mg of sodium. We discussed monitoring for sodium in pre-packaged foods, and they will try to improve salt intake. - treated with Bumex 1.5mg IV BID for over a week, 9 liters out however, still with a lot of fluid to remove and weight really did not change -Patient appears to have R sided CHF with possible left sided diastolic CHF. appreciate nephrology recommendations, will continue the increase in Bumex at 3m g PO BID making a lot more urine, Cr stable at 2.0 if she tolerates this dose and Cr is stable could consider d/c to home tomorrow with close follow up (2) HTN (hypertension): BP has been low normal but stable continue metoprolol 25 mg po daily with hold parameters HR in the 70's today (3) CAD (coronary artery disease): Cardiac medications as described above. Of note, patient has a left bundle branch block on EKG, unclear if this is new but not mentioned in previous cardiology notes. - Troponins negative at 0.04 x 3; no chest pain. (4) Atrial fibrillation: intermittent RVR, rates in the 120's earlier in the stay, appeared more like atrial flutter now better, HR in the 70's - Continue amiodarone - continue Xarelto - continue metoprolol (5) CKD (chronic kidney disease) stage 4, GFR 15-29 ml/min: Baseline Cr ~1.7-2.0, eGFR ~20. Cr is 2.0, K is 4.2 continue Bumex at 3mg PO BID, monitor urine output, weight check BMP daily appreciate recommendations from Dr. Villavicencio, will need to be followed by nephrology as outpatient might be ready for d/c tomorrow (6) DM (diabetes mellitus): A1c was 6.2% on 06/15/2019. Does not appear to be on any medications at this time. Has noted allergy to insulin. - Follow blood sugars - Have largely been under control, no hypoglycemia (7) Anemia: Hgb was in the 14 range last year, but hgb has been substantially lower this admission. Initially concern for GI bleed. - Anemia labs show iron deficiency - Replete iron stores x 3 days (Last dose on 06/18). further Venofer as needed (8) Asymptomatic bacteriuria: Routine UA done in the ED for no appreciable symptoms. 0/4 SIRS. Culture has now grown ESBL E. coli. I do not think this represents infection. - Contact precautions. No abx at this time. (9) DVT prophylaxis: Xarelto Dispo: keep hospitalized for nephrology input has significant pitting edema in legs/feet, markedly volume overloaded potential for discharge on Tuesday if Cr holds and she continues to make adequate urine with Bumex continue therapy please Subjective patient feeling well, tolerating the increased dose of Bumex at 3mg BID making more urine, edema is going down Cr remains stable at 2.01 and K is 4.2 eating well, ambulating in the room with help, less dyspnea on exertion no chest pain or pressure, no fever/chills, no nausea/vomiting/diarrhea, no cough she is hopeful to leave tomorrow if Cr remains stable Review of Systems Review of Systems: All systems reviewed & are unremarkable except as noted in HPI & below Physical Exam Constitutional: WD/WN, vitals as above Eyes: PERRL, conjunctivae normal, anicteric sclerae ENMT: external ear and nose normal, oropharynx normal Neck: trachea midline, no thyromegaly Respiratory: normal respiratory effort, lungs clear to auscultation Cardiovascular: Rate/Rhythm: regular rate and + irregularly irregular Heart Sounds: normal S1 and normal S2; no murmur Extremities: normal capillary refill and + edema (pitting to knees) Gastrointestinal (Abdomen): normal bowel sounds, soft, nontender, no hepatosplenomegaly Musculoskeletal: no cyanosis or clubbing, extremities motor strength 5/5 Skin: no rashes, warm and dry Neurologic: patellar DTR's 2+ bilat, sensation intact and PERRL, EOMI, accommodation nl, no face palsy, no dysarthria Psychiatric: A+Ox3, euthymic affect Lymphatic: no cervical or axillary lymphadenopathy Results & Data Vital Signs (Past 12 Hours) Vital Signs Temp Pulse Pulse Resp BP BP Pulse Ox 06/28/19 15:59 36.5 C 73 21 100/63 97 06/28/19 11:03 36.7 C 71 22 107/64 96 06/28/19 08:00 64 06/28/19 07:14 36.3 C L 68 16 100/62 97 06/28/19 05:18 36.4 C L 73 20 112/73 94 Laboratory Results Laboratory Results - last 24 hr 06/27/19 06/27/19 06/28/19 16:24 20:43 06:50 APTT 33.9 H PTT Ratio 1.3 Sodium Potassium Chloride Carbon Dioxide Anion Gap BUN Creatinine Est Cr Clr Drug Dosing Est GFR ( Amer) Est GFR (Non-Af Amer) BUN/Creatinine Ratio Glucose POC Glucose 175 H 167 H Calcium Phosphorus Albumin 06/28/19 06/28/19 06:50 07:15 APTT PTT Ratio Sodium 140 Potassium 4.2 Chloride 104 Carbon Dioxide 31 Anion Gap 6.0 BUN 39 H Creatinine 2.01 H Est Cr Clr Drug Dosing 22.0 Est GFR ( Amer) 25.8 Est GFR (Non-Af Amer) 22.2 BUN/Creatinine Ratio 19.5 Glucose 125 H POC Glucose 129 H Calcium 9.1 Phosphorus 3.8 Albumin 2.9 L Medications Administered Current Inpatient Medications Acetaminophen (Tylenol) 650 mg PO Q4H PRN PRN Reason: Pain or Fever Stop: 07/14/19 16:09 Last Admin: 06/16/19 22:49 Dose: 650 mg Documented by: Amiodarone HCl (Cordar[facility]) [facility] [place]: 07/15/19 08:59 Last Admin: 06/28/19 08:53 Dose: 200 mg Documented by: Atorvastatin Calcium (Lipitor) 80 [facility] [place]: 07/15/19 08:59 Last Admin: 06/28/19 08:52 Dose: 80 mg Documented by: Bumetanide (Bumex) 3 mg PO [id number] [facility] Stop: 07/27/19 16:59 Last Admin: 06/28/19 08:53 Dose: 3 mg Documented by: Dextrose (Dextrose 50%) 25 - 50 ml IV UD PRN; Protocol PRN Reason: Hypoglycemia Protocol Stop: 07/14/19 16:09 Glucagon (Glucagen) 1 mg SQ UD PRN; Protocol PRN Reason: Hypoglycemia Protocol Stop: 07/14/19 16:09 Glucose (Dex4 Glucose) 4 - 8 tabs PO UD PRN; Protocol PRN Reason: Hypoglycemia Protocol Stop: 07/14/19 16:09 Glucose (Glucose 40%) 15 - 30 gm PO UD PRN; Protocol PRN Reason: Hypoglycemia Protocol Stop: 07/14/19 16:09 Iron Sucrose 200 mg/ Sodium (Chloride) 110 mls @ 220 mls/hr IV DAILY [facility] Stop: 07/01/19 11:44 Last Infusion: 06/28/19 09:43 Dose: Infused Documented by: Magnesium Hydroxide (Milk Of Magnesia) 30 ml PO Q6H PRN PRN Reason: Constipation Stop: 07/21/19 19:57 Last Admin: 06/27/19 06:03 Dose: 30 ml Documented by: Metoprolol Succinate (Toprol Xl) 25 mg PO QPM [facility] Stop: 07/23/19 20:59 Last Admin: 06/27/19 20:20 Dose: Not Given Documented by: Miscellaneous (Carbohydrates For Hypoglycemia) 15 - 30 gm PO UD PRN PRN Reason: Hypoglycemia Protocol Stop: 07/14/19 16:09 Ondansetron HCl (Zofran) 4 mg IV Q6H PRN PRN Reason: Nausea Stop: 07/14/19 16:09 Potassium Chloride (Klor-Con M20) 20 meq PO BID [facility] Stop: 07/20/19 20:59 Last Admin: 06/28/19 08:53 Dose: 20 meq Documented by: Rivaroxaban (Xarelto) 15 mg PO DAILY [facility] Stop: 07/21/19 08:59 Last Admin: 06/28/19 08:53 Dose: 15 mg Documented by: PG Care Time/CCT Total # of Minutes Spent Total Time Spent with Patient: Total time spent is greater than 50% in coordination of care (as documented) at patient's floor/unit and/or counseling patient: (1) Anemia Anemia type: unspecified type Qualified Code(s): D64.9 - Anemia, unspecified
[2019-06-28] MEDS: METOPROLOL SUCC 25MG EXT REL TAB PO SCH (20:25)
[2019-06-29 06:27] LABS: Hematocrit (blood only) 32.7 % (37-47); Hemoglobin 9.5 g/dL (12.0-16.0); Mean Corpuscular Hemoglobin 26.9 pg (25-34); Mean Corpuscular Hgb Conc 29.1 g/dL (32-36); Mean Corpuscular Volume 92.6 fL (80-100); Mean Platelet Volume 10.3 fL (7.4-10.4); Nucleated RBC # (auto) 0.02 K/uL (0-0); Nucleated RBC % (auto) 0.2 %; Platelet Count 264 K/uL (130-400); RDW Coefficient of Variation 20.1 % (11.5-14.5); Red Blood Count 3.53 M/uL (4.2-5.4); White Blood Count 7.35 K/uL (4.8-10.8)
[2019-06-29 06:38] LABS: Partial Thromboplastin Ratio 1.2; Partial Thromboplastin Time 32.2 Seconds (21.0-31.0)
[2019-06-29 06:54] LABS: BUN Creatinine Ratio 20.6 (10-20); Calcium 9.4 mg/dl (8.5-10.1); Creatinine Clr Calc Pharmacy 21.7 ml/min; Est GFR (African American) 25.6; Est GFR (Non-African American) 22.1; Potassium 3.9 mmol/L (3.5-5.1)
[2019-06-29 06:55] LABS: Phosphorus 4.1 mg/dl (2.5-4.9)
[2019-06-29] MEDS: IRON SUCROSE 200 MG in 0.9 % SODIUM CHLORIDE 100 ML IV SCH (08:35)
[2019-06-29] MEDS: ATORVASTATIN 40 MG TAB PO SCH (08:35)
[2019-06-29] MEDS: AMIODARONE 200 MG TAB PO SCH (08:35)
[2019-06-29] MEDS: POTASSIUM CHLORIDE 20 MEQ TABCR PO SCH ×2 (08:36→20:33)
[2019-06-29] MEDS: RIVAROXABAN 15 MG TAB PO SCH (08:36)
[2019-06-29] MEDS ORDERED: BUMETANIDE 1 MG TAB PO SCH (09:00)
[2019-06-29] MEDS ORDERED: BUMETANIDE 1 MG TAB PO ONE (09:00)
--- NOTE | 2019-06-29 10:32 | Nephrology Progress Note ---
Date of Service June 29, 2019 Assessment & Plan (1) CKD (chronic kidney disease) stage 4, GFR 15-29 ml/min: Arlen has stage IIIB /4 chronic kidney disease with baseline creatinine 1.7-2.0 in the setting of cardiorenal syndrome, diabetes and atherosclerotic disease. Admitted to the hospital with CHF exacerbation and weight gain, treated with IV diuretics with significant improvement in volume status and more than 9 L negative. However, she continues to have significant lower extremity edema and renal function has been slowly worsening on IV diuretics. Diuretics was on hold for a brief period of time however had to resume because of low urine output and persistent lower extremity edema. --continue Bumex to 3 milligram twice a day, while monitoring volume status, renal function and electrolyte --renal function is not far off from her baseline, electrolyte acceptable and ur ine output has been decent, with current GFR eventually she might need to be continued on higher dose of diuretics --goal will be to keep her slightly net negative and if renal function stays relatively stable with acceptable electrolyte she can be discharged in next few days. --on IV iron Will follow (2) Right heart failure: (3) Anemia: (4) DM (diabetes mellitus): (5) Asymptomatic bacteriuria: Subjective Arlen Was seen and examined in her room this morning. Overall she has been feeling better. Denies any shortness of breath or chest pain. Renal function has been stable with acceptable electrolytes. Urine output increased , net negative >1. L on Bumex 3 BID. LE edema remained same. Review of Systems Review of Systems: All systems reviewed & are unremarkable except as noted in HPI & below Physical Exam Constitutional: well developed and well nourished; no acute distress Respiratory: normal respiratory effort, lungs clear to auscultation Cardiovascular: Rate/Rhythm: regular rate and regular rhythm Heart Sounds: normal S1 and normal S2 Extremities: + edema (3 + b/l LE edema) Neurologic: moves all extremities and awake; not confused Psychiatric: A+Ox3, euthymic affect Results & Data Vital Signs (Past 12 Hours) Vital Signs Temp Pulse Resp BP Pulse Ox 06/29/19 06:16 36.5 C 113 H 20 95/61 L 96 06/29/19 04:17 36.5 C 113 H 21 120/75 96 06/28/19 23:40 36.4 C L 112 H 19 98/67 L 94 PG Care Time/CCT Total # of Minutes Spent Total Time Spent with Patient: Total time spent is greater than 50% in coordination of care (as documented) at patient's floor/unit and/or counseling patient: (1) Anemia Anemia type: unspecified type Qualified Code(s): D64.9 - Anemia, unspecified
--- NOTE | 2019-06-29 16:11 | Hospitalist Progress Note ---
Date of Service June 29, 2019 Assessment & Plan (1) Right heart failure: Acute on chronic diastolic CHF. Mostly right-sided and associated with severe pulmonary hypertension which is worsening -Patient appears to have R sided CHF with possible left sided diastolic CHF treated with Bumex 1.5mg IV BID for a week, little change in volume status appreciate nephrology recommendations, will continue the increase in Bumex at 3mg PO BID making a lot more urine, Cr stable at 2.0 for three days, K is 3.9 edema finally appears to be improving, patient feeling better, less dyspnea on exertion over past three days she is negative 3 liters, weight down 2 kg keep over the weekend on Bumex 3mg BID if she tolerates and renal function stable, could consider d/c on Tuesday with close PCP and nephrology follow up (2) HTN (hypertension): BP has been low normal but stable continue metoprolol 25 mg po daily with hold parameters HR in the 60's today (3) CAD (coronary artery disease): Cardiac medications as described above. Of note, patient has a left bundle branch block on EKG, unclear if this is new but not mentioned in previous cardiology notes. - Troponins negative at 0.04 x 3; no chest pain. (4) Atrial fibrillation: intermittent RVR, rates in the 120's earlier in the stay, appeared more like atrial flutter now better, HR in the 60's - Continue amiodarone - continue Xarelto - continue metoprolol (5) CKD (chronic kidney disease) stage 4, GFR 15-29 ml/min: Baseline Cr ~1.7-2.0, eGFR ~20. Cr is 2.02, K is 3.9 continue Bumex at 3mg PO BID, monitor urine output, weight check BMP daily appreciate recommendations from Dr. Villavicencio, will need to be followed by nephrology as outpatient monitor over the weekend, if stable then home with close follow up (6) DM (diabetes mellitus): A1c was 6.2% on 06/15/2019. Does not appear to be on any medications at this time. Has noted allergy to insulin. - no longer checking as sugars as they were always stable (7) Anemia: Hgb was in the 14 range last year, but hgb has been substantially lower this admission. Initially concern for GI bleed. - Anemia labs show iron deficiency continue Venofer while admitted to adequately restore iron (8) Asymptomatic bacteriuria: Routine UA done in the ED for no appreciable symptoms. 0/4 SIRS. Culture has now grown ESBL E. coli. I do not think this represents infection. - Contact precautions. No abx at this time. (9) DVT prophylaxis: Xarelto Dispo: keep hospitalized over the weekend has significant pitting edema in legs/feet, markedly volume overloaded potential for discharge on Tuesday *please continue with PT/OT for continued discharge planning purposes Subjective patient feeling well today, making more urine, Cr is holding at 2.0 she has less edema, less dyspnea, no chest pain/pressure she is eating well, complying with fluid restriction discussed with Dr. Villavicencio, she would like to keep the weekend to monitor UO and renal function I am in agreement with this plan, she just started to diurese, would like that to continue labs show Cr is 2.0, K 3.9, HCO3 up slightly at 33, Hb stable at 9.5 updated at the bedside, we talked about how she needs aggressive diuresis unsure if her renal function will withstand high doses of Bumex intermediate told patient and to talk about whether she would really want HD if it came to that point said that he himself would never want HD and would probably not be in favor of her going on HD patient undecided but leaning towards not doing it, certainly she has some time to think but that could change quickly Review of Systems Review of Systems: All systems reviewed & are unremarkable except as noted in HPI & below Respiratory: + dyspnea on exertion; no cough and no dyspnea Cardiovascular: + dyspnea on exertion and + edema; no chest pain, no dyspnea at rest and no syncope Gastrointestinal: no abdominal pain, no nausea, no vomiting, no constipation and no diarrhea/loose stools Physical Exam Constitutional: WD/WN, vitals as above Eyes: PERRL, conjunctivae normal, anicteric sclerae ENMT: external ear and nose normal, oropharynx normal Neck: trachea midline, no thyromegaly Respiratory: normal respiratory effort, lungs clear to auscultation Cardiovascular: Rate/Rhythm: regular rate and + irregularly irregular Heart Sounds: normal S1 and normal S2; no murmur Vessels: + JVD Extremities: normal capillary refill and + edema (pitting to knees, mild improvement today) Gastrointestinal (Abdomen): normal bowel sounds, soft, nontender, no hepatosplenomegaly Musculoskeletal: no cyanosis or clubbing, extremities motor strength 5/5 Skin: no rashes, warm and dry Neurologic: patellar DTR's 2+ bilat, sensation intact and PERRL, EOMI, accommodation nl, no face palsy, no dysarthria Psychiatric: A+Ox3, euthymic affect Lymphatic: no cervical or axillary lymphadenopathy Results & Data Vital Signs (Past 12 Hours) Vital Signs Temp Pulse Resp BP Pulse Ox 06/29/19 15:54 36.7 C 60 16 106/65 93 06/29/19 06:16 36.5 C 113 H 20 95/61 L 96 06/29/19 04:17 36.5 C 113 H 21 120/75 96 Laboratory Results Laboratory Results - last 24 hr 06/29/19 06/29/19 06/29/19 06:04 06:04 06:04 WBC 7.35 RBC 3.53 L Hgb 9.5 L Hct 32.7 L MCV 92.6 MCH 26.9 MCHC 29.1 L RDW Std Deviation 66.0 H RDW Coeff of Portia 20.1 H Plt Count 264 MPV 10.3 Absolute Nucleated RBC 0.02 H Nucleated RBC % (auto) 0.2 APTT 32.2 H PTT Ratio 1.2 Sodium 142 Potassium 3.9 Chloride 102 Carbon Dioxide 33 H Anion Gap 7.0 BUN 42 H Creatinine 2.02 H Est Cr Clr Drug Dosing 21.7 Est GFR ( Amer) 25.6 Est GFR (Non-Af Amer) 22.1 BUN/Creatinine Ratio 20.6 H Glucose 142 H POC Glucose Calcium 9.4 Phosphorus 4.1 Albumin 3.0 L 06/29/19 07:19 WBC RBC Hgb Hct MCV MCH MCHC RDW Std Deviation RDW Coeff of Portia Plt Count MPV Absolute Nucleated RBC Nucleated RBC % (auto) APTT PTT Ratio Sodium Potassium Chloride Carbon Dioxide Anion Gap BUN Creatinine Est Cr Clr Drug Dosing Est GFR ( Amer) Est GFR (Non-Af Amer) BUN/Creatinine Ratio Glucose POC Glucose 156 H Calcium Phosphorus Albumin Medications Administered Current Inpatient Medications Acetaminophen (Tylenol) 650 mg PO Q4H PRN PRN Reason: Pain or Fever Stop: 07/14/19 16:09 Last Admin: 06/16/19 22:49 Dose: 650 mg Documented by: Amiodarone HCl (Cordarone) 200 mg PO QAM [facility] Stop: 07/15/19 08:59 Last Admin: 06/29/19 08:35 Dose: 200 mg Documented by: Atorvastatin Calcium (Lipitor) 80 mg PO QAM [facility] Stop: 07/15/19 08:59 Last Admin: 06/29/19 08:35 Dose: 80 mg Documented by: Bumetanide (Bumex) 3 mg PO [id number] [facility] Stop: 07/29/19 16:59 Last Admin: 06/29/19 17:33 Dose: 3 mg Documented by: Dextrose (Dextrose 50%) 25 - 50 ml IV UD PRN; Protocol PRN Reason: Hypoglycemia Protocol Stop: 07/14/19 16:09 Glucagon (Glucagen) 1 mg SQ UD PRN; Protocol PRN Reason: Hypoglycemia Protocol Stop: 07/14/19 16:09 Glucose (Dex4 Glucose) 4 - 8 tabs PO UD PRN; Protocol PRN Reason: Hypoglycemia Protocol Stop: 07/14/19 16:09 Glucose (Glucose 40%) 15 - 30 gm PO UD PRN; Protocol PRN Reason: Hypoglycemia Protocol Stop: 07/14/19 16:09 Iron Sucrose 200 mg/ Sodium (Chloride) 110 mls @ 220 mls/hr IV DAILY [facility] Stop: 07/01/19 11:44 Last Infusion: 06/29/19 09:10 Dose: Infused Documented by: Magnesium Hydroxide (Milk Of Magnesia) 30 ml PO Q6H PRN PRN Reason: Constipation Stop: 07/21/19 19:57 Last Admin: 06/27/19 06:03 Dose: 30 ml Documented by: Metoprolol Succinate (Toprol Xl) 25 mg PO QPM [facility] Stop: 07/23/19 20:59 Last Admin: 06/29/19 20:32 Dose: Not Given Documented by: Miscellaneous (Carbohydrates For Hypoglycemia) 15 - 30 gm PO UD PRN PRN Reason: Hypoglycemia Protocol Stop: 07/14/19 16:09 Ondansetron HCl (Zofran) 4 mg IV Q6H PRN PRN Reason: Nausea Stop: 07/14/19 16:09 Potassium Chloride (Klor-Con M20) 20 meq PO BID [facility] Stop: 07/20/19 20:59 Last Admin: 06/29/19 20:33 Dose: 20 meq Documented by: Rivaroxaban (Xarelto) 15 mg PO DAILY [facility] Stop: 07/21/19 08:59 Last Admin: 06/29/19 08:36 Dose: 15 mg Documented by: PG Care Time/CCT Total # of Minutes Spent Total Time Spent with Patient: Total time spent is greater than 50% in coordination of care (as documented) at patient's floor/unit and/or counseling patient: (1) Anemia Anemia type: unspecified type Qualified Code(s): D64.9 - Anemia, unspecified
[2019-06-29] MEDS: BUMETANIDE 1 MG TAB PO SCH (17:33)
[2019-06-29] MEDS: METOPROLOL SUCC 25MG EXT REL TAB PO SCH (20:32)
[2019-06-30 08:06] LABS: Albumin Level 2.9 gm/dl (3.4-5.0); BUN Creatinine Ratio 21.5 (10-20); Calcium 9.4 mg/dl (8.5-10.1); Est GFR (African American) 26.1; Est GFR (Non-African American) 22.5; Potassium 3.4 mmol/L (3.5-5.1)
[2019-06-30 08:07] LABS: Phosphorus 3.6 mg/dl (2.5-4.9)
[2019-06-30] MEDS: BUMETANIDE 1 MG TAB PO SCH ×2 (08:44→17:27)
[2019-06-30] MEDS: POTASSIUM CHLORIDE 20 MEQ TABCR PO SCH ×2 (08:45→21:08)
[2019-06-30] MEDS: ATORVASTATIN 40 MG TAB PO SCH (08:45)
[2019-06-30] MEDS: AMIODARONE 200 MG TAB PO SCH (08:45)
[2019-06-30] MEDS: RIVAROXABAN 15 MG TAB PO SCH (08:45)
[2019-06-30] MEDS: MAGNESIUM HYDROXIDE SUSP 30 ML UDC PO PRN (09:01)
[2019-06-30] MEDS: IRON SUCROSE 200 MG in 0.9 % SODIUM CHLORIDE 100 ML IV SCH (09:01)
--- NOTE | 2019-06-30 10:28 | Hospitalist Progress Note ---
Date of Service June 30, 2019 Assessment & Plan (1) Right heart failure: Patient was converted over to Bumex 3 mg twice daily by mouth. We are currently monitoring renal function over the weekend to ensure that remained stable, so far this is not been an issue. Will recheck tomorrow morning. Continue to monitor I's and O's along with daily weights as well as the edema in the lower extremities. (2) HTN (hypertension): BP has been low normal but stable continue metoprolol 25 mg po daily with hold parameters HR remains in the 60s, no symptoms with this (3) CAD (coronary artery disease): Cardiac medications as described above. Of note, patient has a left bundle branch block on EKG, unclear if this is new but not mentioned in previous cardiology notes. - Troponins negative at 0.04 x 3; no chest pain. (4) Atrial fibrillation: intermittent RVR, rates in the 120's earlier in the stay, appeared more like atrial flutter now better, HR in the 60's - Continue amiodarone - continue Xarelto - continue metoprolol (5) CKD (chronic kidney disease) stage 4, GFR 15-29 ml/min: Baseline Cr ~1.7-2.0, eGFR ~20. Cr is 1.99, K is 3.4, repleted PO today continue Bumex at 3mg PO BID, monitor urine output, weight check BMP daily appreciate recommendations from Dr. Villavicencio, will need to be followed by nephrology as outpatient (6) DM (diabetes mellitus): A1c was 6.2% on 06/15/2019. Does not appear to be on any medications at this time. Has noted allergy to insulin. - no longer checking as sugars as they were always stable (7) Anemia: Hgb was in the 14 range last year, but hgb has been substantially lower this admission. Initially concern for GI bleed. - Anemia labs show iron deficiency continue Venofer while admitted to adequately restore iron (8) Asymptomatic bacteriuria: Routine UA done in the ED for no appreciable symptoms. 0/4 SIRS. Culture has now grown ESBL E. coli. I do not think this represents infection. - Contact precautions. No abx at this time. (9) DVT prophylaxis: Xarelto Dispo: keep hospitalized over the weekend has significant pitting edema in legs/feet, markedly volume overloaded potential for discharge on Tuesday *please continue with PT/OT for continued discharge planning purposes Subjective Patient with no complaints today. Feels her shortness of breath is much improved. Still concerned regarding her lower extremity edema. Remains on 3 L of nasal cannula saturating well. Creatinine is 1.99 today which is essentially unchanged from yesterday. She is remained afebrile. Patient has been converted from IV to oral Bumex yesterday. Physical Exam Physical Exam: Gen: AAOx3, NAD HEENT: neck supple, no JVD. MMM. Heart: RR, no murmurs Lungs: Diminished, clear to auscultation in all quinn Abd: soft, nontender, nondistended. Normal BS Neuro: awake, alert. Nonfocal Psych: appropriate mood and affect Ext: 3+ pitting edema to the midcalf. Results & Data Vital Signs (Past 12 Hours) Vital Signs Temp Pulse Pulse Resp BP Pulse Ox 06/30/19 07:59 36.4 C L 64 18 90/53 L 99 06/30/19 03:03 36.4 C L 64 20 93/54 L 93 06/30/19 00:00 65 06/29/19 22:54 36.4 C L 69 21 94/57 L 92 PG Care Time/CCT Total # of Minutes Spent Total Time Spent with Patient: Total time spent is greater than 50% in coordination of care (as documented) at patient's floor/unit and/or counseling patient: (1) Anemia Anemia type: unspecified type Qualified Code(s): D64.9 - Anemia, unspecified
--- NOTE | 2019-06-30 16:07 | Nephrology Progress Note ---
Date of Service June 30, 2019 Assessment & Plan (1) CKD (chronic kidney disease) stage 4, GFR 15-29 ml/min: Arlen has stage IIIB /4 chronic kidney disease with baseline creatinine 1.7-2.0 in the setting of cardiorenal syndrome, diabetes and atherosclerotic disease. Admitted to the hospital with CHF exacerbation and weight gain, treated with IV diuretics with significant improvement in volume status. She was switched to PO diuretics. She is tolerating therapy well. Renal function s table. Plan to follow up with Dr. Villavicencio post discharge. (2) Right heart failure: Improving with therapy. (3) Anemia: Completed IV venofer x 1 gm. (4) DM (diabetes mellitus): (5) Asymptomatic bacteriuria: Subjective No acute events overnight. Arlen feels well today. No chest pain or palpitations. Denies significant dyspnea. Review of Systems Review of Systems: All systems reviewed & are unremarkable except as noted in HPI & below Physical Exam Constitutional: well developed; no acute distress Eyes: no scleral abnormality and no corneal abnormality ENMT: Mouth: no oral mucosal abnormality and oral mucous membranes not dry Neck: normal visual inspection and trachea midline Respiratory: normal respiratory effort Auscultation: lungs clear to auscultation bilaterally Cardiovascular: Rate/Rhythm: regular rate Heart Sounds: normal S1 and normal S2 Extremities: no edema Musculoskeletal: Extremities: no cyanosis and no clubbing Skin: normal turgor; no lesions Neurologic: Motor/Sensory: no tremor and no asterixis Psychiatric: Orientation: alert and oriented x 3 Results & Data Vital Signs (Past 12 Hours) Vital Signs Temp Pulse Resp BP Pulse Ox 06/30/19 11:24 36.6 C 104 H 18 98/62 L 95 06/30/19 07:59 36.4 C L 64 18 90/53 L 99 Laboratory Results Laboratory Results - last 24 hr 06/30/19 07:26 Sodium 143 Potassium 3.4 L Chloride 103 Carbon Dioxide 36 H Anion Gap 4.0 BUN 43 H Creatinine 1.99 H Est Cr Clr Drug Dosing 22.0 Est GFR ( Amer) 26.1 Est GFR (Non-Af Amer) 22.5 BUN/Creatinine Ratio 21.5 H Glucose 133 H Calcium 9.4 Phosphorus 3.6 Albumin 2.9 L PG Care Time/CCT Total # of Minutes Spent Total Time Spent with Patient: Total time spent is greater than 50% in coordination of care (as documented) at patient's floor/unit and/or counseling patient: (1) Anemia Anemia type: unspecified type Qualified Code(s): D64.9 - Anemia, unspecified
[2019-06-30] MEDS: METOPROLOL SUCC 25MG EXT REL TAB PO SCH (21:07)
[2019-07-01] MEDS: RIVAROXABAN 15 MG TAB PO SCH (08:04)
[2019-07-01] MEDS: BUMETANIDE 1 MG TAB PO SCH ×2 (08:04→17:13)
[2019-07-01] MEDS: ATORVASTATIN 40 MG TAB PO SCH (08:04)
[2019-07-01] MEDS: AMIODARONE 200 MG TAB PO SCH (08:04)
[2019-07-01] MEDS: POTASSIUM CHLORIDE 20 MEQ TABCR PO SCH ×2 (08:04→20:45)
[2019-07-01 08:09] LABS: Hematocrit (blood only) 32.5 % (37-47); Hemoglobin 9.4 g/dL (12.0-16.0); Mean Corpuscular Hemoglobin 27.1 pg (25-34); Mean Corpuscular Hgb Conc 28.9 g/dL (32-36); Mean Corpuscular Volume 93.7 fL (80-100); Platelet Count 282 K/uL (130-400); Red Blood Count 3.47 M/uL (4.2-5.4); White Blood Count 7.57 K/uL (4.8-10.8)
[2019-07-01 08:23] LABS: BUN Creatinine Ratio 20.9 (10-20); Calcium 9.4 mg/dl (8.5-10.1); Creatinine Clr Calc Pharmacy 20.8 ml/min; Est GFR (African American) 24.4; Est GFR (Non-African American) 21.1
[2019-07-01 08:31] LABS: Acanthocytes 2+; Anisocytosis Present; Basophils # (auto) 0.08 K/uL (0-0.2); Basophils % (auto) 1.1 %; Eosinophils # (auto) 0.21 K/uL (0-0.5); Eosinophils % (auto) 2.8 %; Immature Granulocytes # (auto) 0.02 K/uL (0.00-0.02); Immature Granulocytes % (auto) 0.3 %; Lymphocytes # (auto) 2.53 K/uL (1.2-3.4); Lymphocytes % (auto) 33.4 %; Monocytes # (auto) 0.45 K/uL (0.11-0.59); Monocytes % (auto) 5.9 %; Neutrophils # (auto) 4.28 K/uL (1.4-6.5); Neutrophils % (auto) 56.5 %; Polychromasia 1+; Spherocytes 1+
--- NOTE | 2019-07-01 09:41 | Hospitalist Progress Note ---
Date of Service July 01, 2019 Assessment & Plan (1) Right heart failure: Patient was converted over to Bumex 3 mg twice daily by mouth. We are currently monitoring renal function over the weekend to ensure that remained stable, so far this is not been an issue. Will recheck tomorrow morning. Continue to monitor I's and O's along with daily weights as well as the edema in the lower extremities. (2) HTN (hypertension): BP has been low normal but stable continue metoprolol 25 mg po daily with hold parameters HR remains in the 60s, no symptoms with this (3) CAD (coronary artery disease): Cardiac medications as described above. Of note, patient has a left bundle branch block on EKG, unclear if this is new but not mentioned in previous cardiology notes. - Troponins negative at 0.04 x 3; no chest pain. (4) Atrial fibrillation: intermittent RVR, rates in the 120's earlier in the stay, appeared more like atrial flutter now better, HR in the 60's - Continue amiodarone - continue Xarelto - continue metoprolol (5) CKD (chronic kidney disease) stage 4, GFR 15-29 ml/min: Baseline Cr ~1.7-2.0, eGFR ~20. Cr is 2.1, K is 4 continue Bumex at 3mg PO BID, monitor urine output, weight check BMP daily appreciate recommendations from Dr. Villavicencio, will need to be followed by nephrology as outpatient We will remove Ying today. Voiding trial. Nursing also reports that that it for has previously infiltrated the IV every time administered. I see that it is since been discontinued. Can discuss iron supplementation with nephrology when she follows up. (6) DM (diabetes mellitus): A1c was 6.2% on 06/15/2019. Does not appear to be on any medications at this time. Has noted allergy to insulin. - no longer checking as sugars as they were always stable (7) Anemia: Hgb was in the 14 range last year, but hgb has been substantially lower this admission. Initially concern for GI bleed. - Anemia labs show iron deficiency continue Venofer while admitted to adequately restore iron (8) Asymptomatic bacteriuria: Routine UA done in the ED for no appreciable symptoms. 0/4 SIRS. Culture has now grown ESBL E. coli. I do not think this represents infection. - Contact precautions. No abx at this time. (9) DVT prophylaxis: Xarelto Dispo: keep hospitalized over the weekend has significant pitting edema in legs/feet, markedly volume overloaded potential for discharge on Tuesday, plan for home with services *please continue with PT/OT for continued discharge planning purposes Subjective No new issues overnight. Patient feels well. Has been afebrile with low normal blood pressure. Denies any chest pain or worsening shortness of breath. Physical Exam Constitutional: cooperative; no acute distress Neck: trachea midline, no thyromegaly Respiratory: normal respiratory effort Auscultation: + diminished lung sounds; no crackles, no rales, no rhonchi and no wheezes Cardiovascular: Rate/Rhythm: regular rate and regular rhythm Heart Sounds: normal S1 and normal S2 Gastrointestinal (Abdomen): Inspection/Auscultation: abdomen normal to inspection Percussion/Palpation: abdomen soft; abdomen nontender, no guarding, abdomen not rigid and no hepatosplenomegaly Musculoskeletal: 3+ pitting edema lower extremities Skin: no rashes, warm and dry Results & Data Vital Signs (Past 12 Hours) Vital Signs Temp Pulse Pulse Resp BP Pulse Ox 07/01/19 08:02 36.4 C L 77 20 97/61 L 95 07/01/19 04:00 36.4 C L 65 18 94/59 L 91 07/01/19 00:00 68 06/30/19 23:46 36.4 C L 70 20 93/56 L 92 PG Care Time/CCT Total # of Minutes Spent Total Time Spent with Patient: Total time spent is greater than 50% in coordination of care (as documented) at patient's floor/unit and/or counseling patient: (1) Anemia Anemia type: unspecified type Qualified Code(s): D64.9 - Anemia, unspecified
[2019-07-01] MEDS: IRON SUCROSE 200 MG in 0.9 % SODIUM CHLORIDE 100 ML IV SCH (09:49)
[2019-07-01] MEDS ORDERED: EPOETIN ALFA 4,000 UNIT/ML VIAL SQ ONE (10:15)
--- NOTE | 2019-07-01 10:18 | Nephrology Progress Note ---
Date of Service July 01, 2019 Assessment & Plan (1) CKD (chronic kidney disease) stage 4, GFR 15-29 ml/min: Arlen has stage IIIB /4 chronic kidney disease with baseline creatinine 1.7-2.0 in the setting of cardiorenal syndrome, diabetes and atherosclerotic disease. Admitted to the hospital with CHF exacerbation and weight gain which has been treated with IV diuretics with significant improvement in volume status. She was switched to PO diuretics. She is tolerating therapy well. Renal function stable. Plan to follow up with Dr. Villavicencio post discharge. (2) Right heart failure: Improved with treatment. (3) Anemia: Completed IV venofer x 1 gm. Epogen 4000 units SQ will be provided today. (4) DM (diabetes mellitus): (5) Asymptomatic bacteriuria: Subjective No new issues overnight. Patient feels well. BP remains low but acceptable. No lightheadedness or dizziness. No syncope or presyncope. Denies any chest pain or worsening shortness of breath. Review of Systems Review of Systems: All systems reviewed & are unremarkable except as noted in HPI & below Physical Exam Constitutional: well developed; no acute distress Eyes: no scleral abnormality and no corneal abnormality ENMT: Mouth: no oral mucosal abnormality and oral mucous membranes not dry Neck: normal visual inspection and trachea midline Respiratory: normal respiratory effort Auscultation: lungs clear to auscultation bilaterally Cardiovascular: Rate/Rhythm: regular rate Heart Sounds: normal S1 and normal S2 Extremities: no edema Musculoskeletal: Extremities: no cyanosis and no clubbing Skin: normal turgor; no lesions Neurologic: Motor/Sensory: no tremor and no asterixis Psychiatric: Orientation: alert and oriented x 3 Results & Data Vital Signs (Past 12 Hours) Vital Signs Temp Pulse Pulse Resp BP Pulse Ox 07/01/19 08:02 36.4 C L 77 20 97/61 L 95 07/01/19 04:00 36.4 C L 65 18 94/59 L 91 07/01/19 00:00 68 06/30/19 23:46 36.4 C L 70 20 93/56 L 92 Laboratory Results Laboratory Results - last 24 hr 07/01/19 07/01/19 07/01/19 06:58 07:01 07:01 WBC 7.57 RBC 3.47 L Hgb 9.4 L Hct 32.5 L MCV 93.7 MCH 27.1 MCHC 28.9 L RDW Std Deviation 68.0 H RDW Coeff of Portia 21.0 H Plt Count 282 MPV 10.0 Immature Gran % (Auto) 0.3 Neut % (Auto) 56.5 Lymph % (Auto) 33.4 [place] % (Auto) 5.9 Eos % (Auto) 2.8 Baso % (Auto) 1.1 Immature Gran # (Auto) 0.02 Neut # (Auto) 4.28 Lymph # (Auto) 2.53 [place] # (Auto) 0.45 Eos # (Auto) 0.21 Baso # (Auto) 0.08 Polychromasia 1+ Anisocytosis Present Spherocytes 1+ Acanthocytes (Spur) 2+ Sodium 142 Potassium 4.0 D Chloride 103 Carbon Dioxide 35 H Anion Gap 4.0 BUN 44 H Creatinine 2.10 H Est Cr Clr Drug Dosing 20.8 Est GFR ( Amer) 24.4 Est GFR (Non-Af Amer) 21.1 BUN/Creatinine Ratio 20.9 H Glucose 133 H POC Glucose 138 H Calcium 9.4 PG Care Time/CCT Total # of Minutes Spent Total Time Spent with Patient: Total time spent is greater than 50% in coordination of care (as documented) at patient's floor/unit and/or counseling patient: (1) Anemia Anemia type: unspecified type Qualified Code(s): D64.9 - Anemia, unspecified
[2019-07-01] MEDS: METOPROLOL SUCC 25MG EXT REL TAB PO SCH (20:46)
[2019-07-02 06:28] LABS: Basophils # (auto) 0.04 K/uL (0-0.2); Basophils % (auto) 0.5 %; Eosinophils # (auto) 0.26 K/uL (0-0.5); Eosinophils % (auto) 3.3 %; Hematocrit (blood only) 32.7 % (37-47); Hemoglobin 9.6 g/dL (12.0-16.0); Immature Granulocytes # (auto) 0.03 K/uL (0.00-0.02); Immature Granulocytes % (auto) 0.4 %; Lymphocytes # (auto) 2.39 K/uL (1.2-3.4); Lymphocytes % (auto) 30.7 %; Mean Corpuscular Hemoglobin 27.4 pg (25-34); Mean Corpuscular Hgb Conc 29.4 g/dL (32-36); Mean Corpuscular Volume 93.4 fL (80-100); Mean Platelet Volume 10.1 fL (7.4-10.4); Monocytes # (auto) 0.42 K/uL (0.11-0.59); Monocytes % (auto) 5.4 %; Neutrophils # (auto) 4.64 K/uL (1.4-6.5); Neutrophils % (auto) 59.7 %; Platelet Count 297 K/uL (130-400); RDW Coefficient of Variation 21.6 % (11.5-14.5); RDW Standard Deviation 68.5 fL (36.4-46.3); White Blood Count 7.78 K/uL (4.8-10.8)
[2019-07-02 06:57] LABS: Acanthocytes 1+; Anisocytosis Present; Polychromasia 1+; Spherocytes 1+
[2019-07-02 07:09] LABS: BUN Creatinine Ratio 19.7 (10-20); Calcium 9.1 mg/dl (8.5-10.1); Creatinine Clr Calc Pharmacy 21.3 ml/min; Est GFR (Non-African American) 21.6; Potassium 4.1 mmol/L (3.5-5.1)
[2019-07-02] MEDS: ATORVASTATIN 40 MG TAB PO SCH (07:36)
[2019-07-02] MEDS: POTASSIUM CHLORIDE 20 MEQ TABCR PO SCH ×2 (07:36→20:18)
[2019-07-02] MEDS: BUMETANIDE 1 MG TAB PO SCH ×2 (07:36→16:08)
[2019-07-02] MEDS: RIVAROXABAN 15 MG TAB PO SCH (07:36)
[2019-07-02] MEDS: AMIODARONE 200 MG TAB PO SCH (07:36)
--- NOTE | 2019-07-02 09:46 | Nephrology Progress Note ---
Date of Service July 02, 2019 Assessment & Plan (1) CKD (chronic kidney disease) stage 4, GFR 15-29 ml/min: Arlen has stage IIIB /4 chronic kidney disease with baseline creatinine 1.7-2.0 in the setting of cardiorenal syndrome, diabetes and atherosclerotic disease. Admitted to the hospital with CHF exacerbation and weight gain which has been treated with IV diuretics with continued improvement in volume status. She is tolerating therapy well. Renal function stable. Plan to follow up with Dr. Villavicencio post discharge. (2) Right heart failure: Improving with treatment. (3) Anemia: Completed IV venofer x 1 gm. Epogen 4000 units SQ provided yesterday. (4) DM (diabetes mellitus): Subjective No acute events overnight. Some weakness persists and activity tolerance is limited. Arlen is looking at post discharge acute rehab. She otherwise feels well today. Review of Systems Review of Systems: All systems reviewed & are unremarkable except as noted in HPI & below Physical Exam Constitutional: well developed; no acute distress Eyes: no scleral abnormality and no corneal abnormality ENMT: Mouth: no oral mucosal abnormality and oral mucous membranes not dry Neck: normal visual inspection and trachea midline Respiratory: normal respiratory effort Auscultation: lungs clear to auscultation bilaterally Cardiovascular: Rate/Rhythm: regular rate Heart Sounds: normal S1 and normal S2 Extremities: no edema Musculoskeletal: Extremities: no cyanosis and no clubbing Skin: normal turgor; no lesions Neurologic: Motor/Sensory: no tremor and no asterixis Psychiatric: Orientation: alert and oriented x 3 Results & Data Vital Signs (Past 12 Hours) Vital Signs Temp Pulse Pulse Resp BP Pulse Ox 07/02/19 07:28 36.4 C L 64 18 105/48 L 95 07/02/19 03:37 36.4 C L 73 19 96/60 L 95 07/01/19 23:40 36.5 C 66 75 17 97/61 L 89 L Laboratory Results Laboratory Results - last 24 hr 07/02/19 07/02/19 06:14 06:14 WBC 7.78 RBC 3.50 L Hgb 9.6 L Hct 32.7 L MCV 93.4 MCH 27.4 MCHC 29.4 L RDW Std Deviation 68.5 H RDW Coeff of Portia 21.6 H Plt Count 297 MPV 10.1 Immature Gran % (Auto) 0.4 Neut % (Auto) 59.7 Lymph % (Auto) 30.7 [place] % (Auto) 5.4 Eos % (Auto) 3.3 Baso % (Auto) 0.5 Immature Gran # (Auto) 0.03 H Neut # (Auto) 4.64 Lymph # (Auto) 2.39 [place] # (Auto) 0.42 Eos # (Auto) 0.26 Baso # (Auto) 0.04 Polychromasia 1+ Anisocytosis Present Spherocytes 1+ Acanthocytes (Spur) 1+ Sodium 140 Potassium 4.1 Chloride 102 Carbon Dioxide 34 H Anion Gap 4.0 BUN 41 H Creatinine 2.06 H Est Cr Clr Drug Dosing 21.3 Est GFR ( Amer) 25.0 Est GFR (Non-Af Amer) 21.6 BUN/Creatinine Ratio 19.7 Glucose 130 H Calcium 9.1 Specimen Hemolysis PG Care Time/CCT Total # of Minutes Spent Total Time Spent with Patient: Total time spent is greater than 50% in coordin ation of care (as documented) at patient's floor/unit and/or counseling patient: (1) Anemia Anemia type: unspecified type Qualified Code(s): D64.9 - Anemia, unspecified
--- NOTE | 2019-07-02 11:19 | Cardiology Progress Note ---
Date of Service July 02, 2019 Assessment & Plan (1) CHF (congestive heart failure): She presented with fluid retention in part from right heart failure and possibly from diastolic left heart failure. Her fluid status seems a little bit better, by my estimation (primarily by weight) I believe she has lost about 3-4 kg since admission. She still has quite a ways to go. I would recommend continued diuresis. She notes that she does not think she can follow a fluid restriction when she goes home, which may be an issue. (2) CHRISTIANSON (dyspnea on exertion): She had a lot of dyspnea prior to admission, that may have been multifactorial but it is hard to assess since she is not active enough to determine whether that has improved. (3) Atrial fibrillation: She has atrial fibrillation and probably atrial flutter, it sounds as though she had a relatively recently because she was given some sort of pill by Dr. Perez although she does not know what it is, evidently this was given to her because her heart rate was fast. I would continue amiodarone and I would discharge her on the current dose (200 mg daily) when she goes home. There appears to be significant improvement in her arrhythmia on oral amiodarone. (4) Moderate to severe pulmonary hypertension: She has a longstanding history of pulmonary hypertension. This may improve with diuresis, although will still be present. This is probably secondary to her lung disease and therefore there is little that can be done. Hopefully this will return to her baseline. Subjective She is gradually feeling better, she is however worried because she cannot walk due to leg pain. She is anticipating going to rehab. Physical Exam Physical Exam: Constitutional: Alert, cooperative and in no distress. Pulmonary: Clear to auscultation bilaterally. Cardiac: Regular rhythm with no murmur, gallop or rub. Abdomen: Soft, nontender with normal bowel sounds. Extremities: +3 bilateral pretibial pitting edema. Skin: No rash, ecchymoses or petechiae. Results & Data Vital Signs (Past 12 Hours) Vital Signs Temp Pulse Pulse Resp BP Pulse Ox 07/02/19 07:28 36.4 C L 64 18 105/48 L 95 07/02/19 03:37 36.4 C L 73 19 96/60 L 95 07/01/19 23:40 36.5 C 66 75 17 97/61 L 89 L Laboratory Results CBC 07/02/19 Range/Units 06:14 WBC 7.78 (4.8-10.8) K/uL RBC 3.50 L (4.2-5.4) M/uL Hgb 9.6 L (12.0-16.0) g/dL Hct 32.7 L (37-47) % Plt Count 297 (130-400) K/uL Neut # (Auto) 4.64 (1.4-6.5) K/uL Lymph # (Auto) 2.39 (1.2-3.4) K/uL [place] # (Auto) 0.42 (0.11-0.59) K/uL Eos # (Auto) 0.26 (0-0.5) K/uL Baso # (Auto) 0.04 (0-0.2) K/uL Comprehensive Metabolic Panel 07/02/19 Range/Units 06:14 Sodium 140 (136-145) mmol/L Potassium 4.1 (3.5-5.1) mmol/L Chloride 102 (98-107) mmol/L Carbon Dioxide 34 H (21-32) mmol/L BUN 41 H (7-18) mg/dl Creatinine 2.06 H (0.6-1.2) mg/dl Glucose 130 H (70-99) mg/dl Calcium 9.1 (8.5-10.1) mg/dl Intake and Output 07/01/19 07/02/19 07/02/19 22:59 06:59 14:59 Intake Total 222 / 422 Output Total 400 / 5 575 / 2025 100 / 100 Balance -178 / -1603 -575 / -1603 -100 / -100 Intake: Oral 222 / 422 Output: Urine 400 / 1325 575 / 1325 100 / 100 Other: Weight 90.3 kg Patient Weight 07/03/19 06:59 Weight 90.3 kg Diagnostic Findings Telemetry: Sinus rhythm, no atrial arrhythmias PG Care Time/CCT Total # of Minutes Spent Total Time Spent with Patient: Total time spent is greater than 50% in coordination of care (as documented) at patient's floor/unit and/or counseling patient:
[2019-07-02] MEDS ORDERED: METOPROLOL SUCC 25MG EXT REL TAB PO ONE (12:40)
[2019-07-02] MEDS: METOPROLOL SUCC 25MG EXT REL TAB PO SCH (20:17)
--- NOTE | 2019-07-02 22:04 | Hospitalist Progress Note ---
Date of Service July 02, 2019 Assessment & Plan (1) Right heart failure: Patient was converted over to Bumex 3 mg twice daily by mouth. CREATININE HAS BEEN RELATIVELY STABLE. Continue to monitor I's and O's along with daily weights as well as the edema in the lower extremities. Edema does not appear to have decreased much during the course of the past 7 days. (2) HTN (hypertension): BP has been low normal but stable continue metoprolol 25 mg po daily with hold parameters HR remains in the 60s, no symptoms with this. However during the course of the afternoon and morning, she was in atrial flutter. will monitor. May be attributed to holding toprol xl. (3) CAD (coronary artery disease): Cardiac medications as described above. Of note, patient has a left bundle branch block on EKG, unclear if this is new but not mentioned in previous cardiology notes. - Troponins negative at 0.04 x 3; no chest pain. (4) Atrial fibrillation: intermittent RVR, rates in the 120's earlier in the stay, appeared more like atrial flutter now better, HR in the 60's - Continue amiodarone - continue Xarelto - continue metoprolol (5) CKD (chronic kidney disease) stage 4, GFR 15-29 ml/min: Baseline Cr ~1.7-2.0, eGFR ~20. Cr is 2. continue Bumex at 3mg PO BID, monitor urine output, weight check BMP daily appreciate recommendations from Dr. Villavicencio, will need to be followed by nephrology as outpatient We will remove Ying today. Voiding trial. Nursing also reports that that it for has previously infiltrated the IV every time administered. I see that it is since been discontinued. Can discuss iron supplementation with nephrology when she follows up. (6) DM (diabetes mellitus): A1c was 6.2% on 06/15/2019. Does not appear to be on any medications at this time. Has noted allergy to insulin. - no longer checking as sugars as they were always stable (7) Anemia: Hgb was in the 14 range last year, but hgb has been substantially lower this admission. Initially concern for GI bleed. - Anemia labs show iron deficiency continue Venofer while admitted to adequately restore iron (8) Asymptomatic bacteriuria: Routine UA done in the ED for no appreciable symptoms. 0/4 SIRS. Culture has now grown ESBL E. coli. I do not think this represents infection. - Contact precautions. No abx at this time. (9) DVT prophylaxis: Xarelto Dispo: keep hospitalized over the weekend has significant pitting edema in legs/feet, markedly volume overloaded Discharge held due to atrial flutter. Subjective 83 yo female reports feeling well. She has no new complaints. She was unaware of her atrial flutter. Explained to her that her heart rhythm has improved. Review of Systems Review of Systems: All systems reviewed & are unremarkable except as noted in HPI & below Physical Exam Physical Exam: Constitutional: cooperative; no acute distress Neck: trachea midline, no thyromegaly Respiratory: normal respiratory effort Auscultation: + diminished lung so unds; no crackles, no rales, no rhonchi and no wheezes Cardiovascular: Rate/Rhythm: regular rate and regular rhythm Heart Sounds: normal S1 and normal S2 Gastrointestinal (Abdomen): Inspection/Auscultation: abdomen normal to inspection Percussion/Palpation: abdomen soft; abdomen nontender, no guarding, abdomen not rigid and no hepatosplenomegaly Musculoskeletal: 3+ pitting edema lower extremities Skin: no rashes, warm and dry Results & Data Vital Signs (Past 12 Hours) Vital Signs Temp Pulse Resp BP Pulse Ox 07/02/19 19:27 36.6 C 62 17 92/56 L 94 07/02/19 15:24 36.7 C 113 H 22 101/60 94 07/02/19 12:25 118 H 91/61 L 07/02/19 11:23 116 H 22 90/56 L 94 PG Care Time/CCT Total # of Minutes Spent Total Time Spent with Patient: Total time spent is greater than 50% in coordination of care (as documented) at patient's floor/unit and/or counseling patient: (1) Anemia Anemia type: unspecified type Qualified Code(s): D64.9 - Anemia, unspecified
[2019-07-03] MEDS: BUMETANIDE 1 MG TAB PO SCH ×2 (08:02→16:12)
[2019-07-03] MEDS: AMIODARONE 200 MG TAB PO SCH (08:02)
[2019-07-03] MEDS: POTASSIUM CHLORIDE 20 MEQ TABCR PO SCH ×2 (08:02→20:59)
[2019-07-03] MEDS: RIVAROXABAN 15 MG TAB PO SCH (08:02)
[2019-07-03] MEDS: ATORVASTATIN 40 MG TAB PO SCH (08:03)
[2019-07-03] MEDS: MAGNESIUM HYDROXIDE SUSP 30 ML UDC PO PRN (08:06)
--- NOTE | 2019-07-03 08:08 | Cardiology Progress Note ---
Date of Service July 03, 2019 Assessment & Plan (1) CHF (congestive heart failure): She presented with fluid retention in part from right heart failure and possibly from diastolic left heart failure. Her fluid status has been getting better, by my estimation (primarily by weight) I believe she has lost about a little over 4 kg since admission. She still has quite a ways to go. I would recommend continued diuresis, possibly this can be done as an outpatient. She notes that she does not think she can follow a fluid restriction when she goes home, which may be an issue. We will have to follow her closely in heart failure clinic. (2) CHRISTIANSON (dyspnea on exertion): She had a lot of dyspnea prior to admission, that may have been multifactorial but it is hard to assess now for improvement since she is not active enough to determine whether that has improved. She has significant anemia, she is overweight and she had heart failure on admission, all of these could have contributed. (3) Moderate to severe pulmonary hypertension: She has a longstanding history of pulmonary hypertension. This may improve with diuresis, although will still be present. This is probably secondary to her lung disease and therefore there is little that can be done. (4) Atrial fibrillation: She has longstanding atrial fibrillation and this admission atrial flutter, it sounds as though she had it shortly before admission because she was given some sort of pill by Dr. Perez although she does not know what it is, evidently this was given to her because her heart rate was fast. I would continue amiodarone, she has been on it for some time, and I would discharge her on the current dose (200 mg daily) when she goes home. I did send an amiodarone level to see whether we can increase the dose, but I am reluctant to do it due to her bradycardia. I am also reluctant to add AV louise blocking medications in addition to amiodarone due to her sinus bradycardia when she is not in atrial flutter. Since she is completely asymptomatic, there is no change in her blood pressure during the arrhythmia and it is paroxysmal and not a high percentage of her rhythm I think is acceptable to leave her with this finding. From the standpoint of her arrhythmia she should be on anticoagulation. (5) Anticoagulant long-term use: She should remain on anticoagulation as long as she does not have evidence of bleeding, which I believe she does not. She is on Xarelto, she is on the correct dose (15 mg daily) and I would recommend continuing it. (6) Sinus node dysfunction: She has sinus node dysfunction which is likely in part medication related, she may also have sick sinus syndrome since she has atrial arrhythmias as well as sinus bradycardia. Although she is asymptomatic with her bradycardia her blood pressure is on the low side and I am very reluctant to add negative chronotropic medications in order to control her rate during atrial flutter. Her blood pressure does not seem to be very much related to her heart rate so I would continue with her current regimen. Subjective She is feeling relatively well today, she was in atrial flutter for 8-1/2 hours yesterday, had no symptoms during it and was not aware that she was in it or when it converted back to normal last evening. She is sitting at her bedside. Physical Exam Physical Exam: Constitutional: Alert, cooperative and in no distress. Pulmonary: Clear to auscultation bilaterally. Cardiac: Regular rhythm with no murmur, gallop or rub. Abdomen: Soft, nontender with normal bowel sounds. Extremities: +3 bilateral pretibial pitting edema. Skin: No rash, ecchymoses or petechiae. Results & Data Vital Signs (Past 12 Hours) Vital Signs Temp Pulse Resp BP Pulse Ox 07/03/19 07:13 36.3 C L 55 L 22 96/60 L 96 07/03/19 03:56 36.5 C 57 L 18 106/61 95 07/02/19 23:38 36.4 C L 57 L 19 87/55 L 94 Laboratory Results Intake and Output 07/02/19 07/03/19 07/03/19 22:59 06:59 14:59 Intake Total 350 / 590 Output Total 200 / 1000 250 / 1000 Balance 150 / -410 -250 / -410 Intake: Oral 350 / 590 Output: Urine 200 / 1000 250 / 1000 Other: Other Intake Source NPO Weight 89.7 kg Diagnostic Findings Telemetry: Sinus bradycardia except for a period of time from around 8:30 AM yesterday [employer] about 1700 when she was in atrial flutter with a heart rate of 110 to 115 bpm (2-1 I believe). PG Care Time/CCT Total # of Minutes Spent Total Time Spent with Patient: Total time spent is greater than 50% in coordination of care (as documented) at patient's floor/unit and/or counseling patient:
[2019-07-03 08:44] LABS: Calcium 9.3 mg/dl (8.5-10.1); Creatinine Clr Calc Pharmacy 20.4 ml/min; Est GFR (African American) 23.9; Est GFR (Non-African American) 20.6; Potassium 3.8 mmol/L (3.5-5.1)
[2019-07-03 09:20] LABS: Hematocrit (blood only) 32.5 % (37-47); Hemoglobin 9.4 g/dL (12.0-16.0); Mean Corpuscular Hemoglobin 27.2 pg (25-34); Mean Corpuscular Hgb Conc 28.9 g/dL (32-36); Mean Corpuscular Volume 94.2 fL (80-100); Mean Platelet Volume 10.7 fL (7.4-10.4); Platelet Count 292 K/uL (130-400); RDW Standard Deviation 72.5 fL (36.4-46.3); Red Blood Count 3.45 M/uL (4.2-5.4); White Blood Count 7.56 K/uL (4.8-10.8)
[2019-07-03 09:23] LABS: Acanthocytes 1+; Anisocytosis Present; Basophils # (auto) 0.09 K/uL (0-0.2); Basophils % (auto) 1.2 %; Eosinophils # (auto) 0.25 K/uL (0-0.5); Eosinophils % (auto) 3.3 %; Immature Granulocytes # (auto) 0.02 K/uL (0.00-0.02); Immature Granulocytes % (auto) 0.3 %; Lymphocytes # (auto) 2.51 K/uL (1.2-3.4); Lymphocytes % (auto) 33.2 %; Monocytes # (auto) 0.52 K/uL (0.11-0.59); Monocytes % (auto) 6.9 %; Neutrophils # (auto) 4.17 K/uL (1.4-6.5); Neutrophils % (auto) 55.1 %; Poikilocytosis Present; Spherocytes 1+
--- NOTE | 2019-07-03 19:12 | Nephrology Progress Note ---
Date of Service July 03, 2019 Assessment & Plan (1) CKD (chronic kidney disease) stage 4, GFR 15-29 ml/min: Arlen has stage IIIB /4 chronic kidney disease with baseline creatinine 1.7-2.0 in the setting of cardiorenal syndrome, diabetes and atherosclerotic disease. Admitted to the hospital with CHF exacerbation and weight gain which has been treated with IV diuretics with continued improvement in volume status. She is tolerating therapy well. Renal function stable. Plan to follow up with Dr. Villavicencio post discharge. (2) Right heart failure: Improving with treatment. (3) Anemia: Completed IV venofer x 1 gm. Epogen 4000 units SQ provided on 07/01. (4) DM (diabetes mellitus): Subjective Arlen was seen and evaluated in her hospital room this morning. She was comfortable. She denied any symptoms associated with arrythmia. Review of Systems Review of Systems: All systems reviewed & are unremarkable except as noted in HPI & below Physical Exam Constitutional: well developed; no acute distress Eyes: no scleral abnormality and no corneal abnormality ENMT: Mouth: no oral mucosal abnormality and oral mucous membranes not dry Neck: normal visual inspection and trachea midline Respiratory: normal respiratory effort Auscultation: lungs clear to auscultation bilaterally Cardiovascular: Rate/Rhythm: regular rate Heart Sounds: normal S1 and normal S2 Extremities: no edema Musculoskeletal: Extremities: no cyanosis and no clubbing Skin: normal turgor; no lesions Neurologic: Motor/Sensory: no tremor and no asterixis Psychiatric: Orientation: alert and oriented x 3 Results & Data Vital Signs (Past 12 Hours) Vital Signs Temp Pulse Pulse Pulse Resp BP Pulse Ox 07/03/19 15:55 36.5 C 59 L 18 101/66 94 07/03/19 14:20 66 07/03/19 12:00 36.5 C 59 L 18 101/63 91 07/03/19 07:13 36.3 C L 55 L 22 96/60 L 96 Laboratory Results Laboratory Results - last 24 hr 07/03/19 07/03/19 07/03/19 06:51 06:59 06:59 WBC 7.56 RBC 3.45 L Hgb 9.4 L Hct 32.5 L MCV 94.2 MCH 27.2 MCHC 28.9 L RDW Std Deviation 72.5 H RDW Coeff of Portia 22.0 H Plt Count 292 MPV 10.7 H Immature Gran % (Auto) 0.3 Neut % (Auto) 55.1 Lymph % (Auto) 33.2 [place] % (Auto) 6.9 Eos % (Auto) 3.3 Baso % (Auto) 1.2 Immature Gran # (Auto) 0.02 Neut # (Auto) 4.17 Lymph # (Auto) 2.51 [place] # (Auto) 0.52 Eos # (Auto) 0.25 Baso # (Auto) 0.09 Poikilocytosis Present Anisocytosis Present Spherocytes 1+ Acanthocytes (Spur) 1+ Sodium 141 Potassium 3.8 Chloride 102 Carbon Dioxide 35 H Anion Gap 4.0 BUN 43 H Creatinine 2.14 H Est Cr Clr Drug Dosing 20.4 Est GFR ( Amer) 23.9 Est GFR (Non-Af Amer) 20.6 BUN/Creatinine Ratio 20.0 Glucose 130 H Calcium 9.3 NT-Pro-B Natriuret Pep 00176 H Amiodarone Pending Desmethylamiodarone Pending PG Care Time/CCT Total # of Minutes Spent Total Time Spent with Patient: Total time spent is greater than 50% in coordination of care (as documented) at patient's floor/unit and/or counseling patient: (1) Anemia Anemia type: unspecified type Qualified Code(s): D64.9 - Anemia, unspecified
[2019-07-03] MEDS: METOPROLOL SUCC 25MG EXT REL TAB PO SCH (20:59)
--- NOTE | 2019-07-03 22:42 | Hospitalist Progress Note ---
Date of Service July 03, 2019 Assessment & Plan (1) Right heart failure: Patient was converted over to Bumex 3 mg twice daily by mouth. CREATININE HAS BEEN RELATIVELY STABLE. Continue to monitor I's and O's along with daily weights as well as the edema in the lower extremities. Edema does not appear to have decreased much during the course of the past 7 days. May need to consider perhaps adding bumex drip. will discuss with cardio in AM. (2) HTN (hypertension): BP has been low normal but stable continue metoprolol 25 mg po daily with hold parameters HR remains in the 60s, no symptoms with this. However during the course of the afternoon and morning, she was in atrial flutter. will monitor. May be attributed to holding toprol xl. (3) CAD (coronary artery disease): Cardiac medications as described above. Of note, patient has a left bundle branch block on EKG, unclear if this is new but not mentioned in previous cardiology notes. - Troponins negative at 0.04 x 3; no chest pain. (4) Atrial fibrillation: intermittent RVR, rates in the 120's earlier in the stay, appeared more like atrial flutter now better, HR in the 60's - Continue amiodarone - continue Xarelto - continue metoprolol (5) CKD (chronic kidney disease) stage 4, GFR 15-29 ml/min: Baseline Cr ~1.7-2.0, eGFR ~20. Cr is 2. continue Bumex at 3mg PO BID, monitor urine output, weight check BMP daily appreciate recommendations from Dr. Villavicencio, will need to be followed by nephrology as outpatient We will remove Ying today. Voiding trial. Nursing also reports that that it for has previously infiltrated the IV every time administered. I see that it is since been discontinued. Can discuss iron supplementation with nephrology when she follows up. (6) DM (diabetes mellitus): A1c was 6.2% on 06/15/2019. Does not appear to be on any medications at this time. Has noted allergy to insulin. - no longer checking as sugars as they were always stable (7) Anemia: Hgb was in the 14 range last year, but hgb has been substantially lower this admission. Initially concern for GI bleed. - Anemia labs show iron deficiency continue Venofer while admitted to adequately restore iron (8) Asymptomatic bacteriuria: Routine UA done in the ED for no appreciable symptoms. 0/4 SIRS. Culture has now grown ESBL E. coli. I do not think this represents infection. - Contact precautions. No abx at this time. (9) DVT prophylaxis: Xarelto Subjective Patient reports no new symptoms. Review of Systems Review of Systems: All systems reviewed & are unremarkable except as noted in HPI & below Physical Exam Physical Exam: Constitutional: cooperative; no acute distress Neck: trachea midline, no thyromegaly Respiratory: normal respiratory effort Auscultation: + diminished lung sounds; no crackles, no rales, no rhonchi and no wheezes Cardiovascular: Rate/Rhythm: regular rate and regular rhythm Heart Sounds: normal S1 and normal S2 Gastrointestinal (Abdomen): Inspection/Auscultation: abdomen normal to inspection Percussion/Palpation: abdomen soft; abdomen nontender, no guarding, abdomen not rigid and no hepatosplenomegaly Musculoskeletal: 3+ pitting edema lower extremities Skin: no rashes, warm and dry Results & Data Vital Signs (Past 12 Hours) Vital Signs Temp Pulse Pulse Resp BP Pulse Ox 07/03/19 20:56 56 L 07/03/19 19:37 36.5 C 61 18 100/63 94 07/03/19 15:55 36.5 C 59 L 18 101/66 94 07/03/19 14:20 66 07/03/19 12:00 36.5 C 59 L 18 101/63 91 PG Care Time/CCT Total # of Minutes Spent Total Time Spent with Patient: Total time spent is greater than 50% in coordination of care (as documented) at patient's floor/unit and/or counseling patient: (1) Anemia Anemia type: unspecified type Qualified Code(s): D64.9 - Anemia, unspecified
--- NOTE | 2019-07-04 09:18 | Nephrology Progress Note ---
Date of Service July 04, 2019 Assessment & Plan (1) CKD (chronic kidney disease) stage 4, GFR 15-29 ml/min: Arlen has stage IIIB /4 chronic kidney disease with baseline creatinine 1.7-2.0 in the setting of cardiorenal syndrome, diabetes and atherosclerotic disease. Admitted to the hospital with CHF exacerbation and weight gain which has been treated with IV diuretics unfortunately LE edema is increasing. She is tolerating therapy well. Renal function stable. Plan to follow up with Dr. Villavicencio post discharge. (2) Right heart failure: Bumex to be converted to gtt today to encourage negative fluid balance. Plan of care discussed with Dr. Lang. (3) Anemia: Completed IV venofer x 1 gm. Epogen 4000 units SQ provided on 07/01. (4) DM (diabetes mellitus): Subjective Increasing LE edema. No dyspnea. No chest pain or palpitations. Review of Systems Review of Systems: All systems reviewed & are unremarkable except as noted in HPI & below Physical Exam Constitutional: well developed; no acute distress Eyes: no scleral abnormality and no corneal abnormality ENMT: Mouth: no oral mucosal abnormality and oral mucous membranes not dry Neck: normal visual inspection and trachea midline Respiratory: normal respiratory effort Auscultation: lungs clear to auscultation bilaterally Cardiovascular: Rate/Rhythm: regular rate Heart Sounds: normal S1 and normal S2 Extremities: + edema Musculoskeletal: Extremities: no cyanosis and no clubbing Skin: normal turgor; no lesions Neurologic: Motor/Sensory: no tremor and no asterixis Psychiatric: Orientation: alert and oriented x 3 Results & Data Vital Signs (Past 12 Hours) Vital Signs Temp Pulse Resp BP Pulse Ox 07/04/19 07:33 36.3 C L 58 L 19 102/66 93 07/04/19 03:37 36.4 C L 57 L 18 94/59 L 95 07/03/19 23:21 36.4 C L 54 L 20 97/61 L 94 Laboratory Results Laboratory Results - last 24 hr 07/03/19 07/03/19 07/04/19 06:59 20:31 07:30 WBC 7.56 RBC 3.45 L Hgb 9.4 L Hct 32.5 L MCV 94.2 MCH 27.2 MCHC 28.9 L RDW Std Deviation 72.5 H RDW Coeff of Portia 22.0 H Plt Count 292 MPV 10.7 H Immature Gran % (Auto) 0.3 Neut % (Auto) 55.1 Lymph % (Auto) 33.2 [place] % (Auto) 6.9 Eos % (Auto) 3.3 Baso % (Auto) 1.2 Immature Gran # (Auto) 0.02 Neut # (Auto) 4.17 Lymph # (Auto) 2.51 [place] # (Auto) 0.52 Eos # (Auto) 0.25 Baso # (Auto) 0.09 Poikilocytosis Present Anisocytosis Present Spherocytes 1+ Acanthocytes (Spur) 1+ POC Glucose 225 H 139 H PG Care Time/CCT Total # of Minutes Spent Total Time Spent with Patient: Total time spent is greater than 50% in coordination of care (as documented) at patient's floor/unit and/or counseling patient: (1) Anemia Anemia type: unspecified type Qualified Code(s): D64.9 - Anemia, unspecified
[2019-07-04] MEDS ORDERED: FUROSEMIDE 100 MG in DEXTROSE 5% 90 ML IV SCH (09:45)
[2019-07-04 10:13] LABS: Albumin Level 3.1 gm/dl (3.4-5.0); BUN Creatinine Ratio 17.9 (10-20); Calcium 9.2 mg/dl (8.5-10.1); Creatinine Clr Calc Pharmacy 18.8 ml/min; Est GFR (African American) 21.7; Est GFR (Non-African American) 18.7; Potassium 4.1 mmol/L (3.5-5.1)
[2019-07-04] MEDS: RIVAROXABAN 15 MG TAB PO SCH (10:44)
[2019-07-04] MEDS: ATORVASTATIN 40 MG TAB PO SCH (10:44)
[2019-07-04] MEDS: POTASSIUM CHLORIDE 20 MEQ TABCR PO SCH ×2 (10:45→19:39)
[2019-07-04] MEDS: AMIODARONE 200 MG TAB PO SCH (10:45)
[2019-07-04] MEDS ORDERED: BUMETANIDE 3 MG in SYRINGE 0 ML IV STA (11:12)
[2019-07-04] MEDS: BUMETANIDE 1 MG TAB PO SCH (11:20)
[2019-07-04] MEDS: BUMETANIDE 10 MG in DEXTROSE 5% 10 ML IV SCH ×2 (13:10→19:24)
--- NOTE | 2019-07-04 14:31 | Cardiology Progress Note ---
Date of Service July 04, 2019 Assessment & Plan (1) CHF (congestive heart failure): She presented with fluid retention in part from right heart failure and possibly from diastolic left heart failure. Her fluid status has been getting better, by my estimation (primarily by weight) I believe she has lost about a little over 4 kg since admission. She still has quite a ways to go. I would recommend continued diuresis. She notes that she does not think she can follow a fluid restriction when she goes home, which may be an issue. We will have to follow her closely in heart failure clinic. (2) CHRISTIANSON (dyspnea on exertion): She had a lot of dyspnea prior to admission, that may have been multifactorial but it is hard to assess now for improvement since she is not active enough to determine whether that has improved. She has significant anem ia, she is overweight and she had heart failure on admission, all of these could have contributed. (3) Atrial fibrillation: She has longstanding atrial fibrillation and this admission atrial flutter, it sounds as though she had it shortly before admission because she was given some sort of pill by Dr. Perez although she does not know what it is, evidently this was given to her because her heart rate was fast. I would continue amiodarone, she has been on it for some time, and I would discharge her on the current dose (200 mg daily) when she goes home. I did send an amiodarone level to see whether we can increase the dose, but I am reluctant to do it due to her bradycardia. I am also reluctant to add AV louise blocking medications in addition to amiodarone due to her sinus bradycardia when she is not in atrial flutter. Since she is completely asymptomatic, there is no change in her blood pressure during the arrhythmia and it is paroxysmal and not a high percentage of her rhythm I think is acceptable to leave her with this finding. From the standpoint of her arrhythmia she should be on anticoagulation. (4) Anticoagulant long-term use: She should remain on anticoagulation as long as she does not have evidence of bleeding, which I believe she does not. She is on Xarelto, she is on the cor rect dose (15 mg daily) and I would recommend continuing it. (5) Sinus node dysfunction: She has sinus node dysfunction which is likely in part medication related, she may also have sick sinus syndrome since she has atrial arrhythmias as well as sinus bradycardia. Although she is asymptomatic with her bradycardia her blood pressure is on the low side and I am very reluctant to add negative chronotropic medications in order to control her rate during atrial flutter. Her blood pressure does not seem to be very much related to her heart rate so I would continue with her current regimen. Subjective She is feeling a little bit better, she does not feel a lot different but thinks her legs are little less edematous. No other cardiovascular symptoms. Physical Exam Physical Exam: Constitutional: Alert, cooperative and in no distress. Pulmonary: Clear to auscultation bilaterally. Cardiac: Regular rhythm with no murmur, gallop or rub. Abdomen: Soft, nontender with normal bowel sounds. Extremities: +3 bilateral pretibial pitting edema, somewhat less intense than in the past. Skin: No rash, ecchymoses or petechiae. Results & Data Vital Signs (Past 12 Hours) Vital Signs Temp Pulse Resp BP Pulse Ox 07/04/19 10:41 36.5 C 66 19 97/55 L 93 07/04/19 07:33 36.3 C L 58 L 19 102/66 93 07/04/19 03:37 36.4 C L 57 L 18 94/59 L 95 Laboratory Results Comprehensive Metabolic Panel 07/04/19 Range/Units 09:34 Sodium 139 (136-145) mmol/L Potassium 4.1 (3.5-5.1) mmol/L Chloride 100 (98-107) mmol/L Carbon Dioxide 35 H (21-32) mmol/L BUN 42 H (7-18) mg/dl Creatinine 2.32 H (0.6-1.2) mg/dl Glucose 190 H (70-99) mg/dl Calcium 9.2 (8.5-10.1) mg/dl Albumin 3.1 L (3.4-5.0) gm/dl Intake and Output 07/03/19 07/04/19 07/04/19 22:59 06:59 14:59 Intake Total 340 / 820 0 / 820 515 / 515 Output Total 800 / 1251 100 / 1251 400 / 400 Balance -460 / -431 -100 / -431 115 / 115 Intake: Oral 340 / 820 0 / 820 515 / 515 Output: Urine 800 / 1250 100 / 1250 400 / 400 Other: Weight 89.4 kg Diagnostic Findings Telemetry: Sinus rhythm with a controlled heart rate, no further atrial flutter PG Care Time/CCT Total # of Minutes Spent Total Time Spent with Patient: Total time spent is greater than 50% in coordination of care (as documented) at patient's floor/unit and/or counseling patient:
[2019-07-04] MEDS: METOPROLOL SUCC 25MG EXT REL TAB PO SCH (19:40)
--- NOTE | 2019-07-04 22:27 | Hospitalist Progress Note ---
Date of Service July 04, 2019 Assessment & Plan (1) Right heart failure: Patient was converted over to Bumex 3 mg twice daily by mouth. CREATININE HAS BEEN RELATIVELY STABLE. On 07/04, placed on bumex drip. Will continue to monitor I's and O's along with daily weights as well as the edema in the lower extremities. Appears to be working. (2) HTN (hypertension): BP has been low normal but stable continue metoprolol 25 mg po daily with hold parameters HR remains in the 60s, no symptoms with this. However during the course of the afternoon and morning, she was in atrial flutter. will monitor. May be attributed to holding toprol xl. (3) CAD (coronary artery disease): Cardiac medications as described above. Of note, patient has a left bundle branch block on EKG, unclear if this is new but not mentioned in previous cardiology notes. - Troponins negative at 0.04 x 3; no chest pain. (4) Atrial fibrillation: intermittent RVR, rates in the 120's earlier in the stay, appeared more like atrial flutter now better, HR in the 60's - Continue amiodarone - continue Xarelto - continue metoprolol (5) CKD (chronic kidney disease) stage 4, GFR 15-29 ml/min: Baseline Cr ~1.7-2.0, eGFR ~20. Cr is 2. continue Bumex at 3mg PO BID, monitor urine output, weight check BMP daily appreciate recommendations from Dr. Villavicencio, will need to be followed by nephrology as outpatient We will remove Ying today. Voiding trial. Nursing also reports that that it for has previously infiltrated the IV every time administered. I see that it is since been discontinued. Can discuss iron supplementation with nephrology when she follows up. (6) DM (diabetes mellitus): A1c was 6.2% on 06/15/2019. Does not appear to be on any medications at this time. Has noted allergy to insulin. - no longer checking as sugars as they were always stable (7) Anemia: Hgb was in the 14 range last year, but hgb has been substantially lower this admission. Initially concern for GI bleed. - Anemia labs show iron deficiency continue Venofer while admitted to adequately restore iron (8) Asymptomatic bacteriuria: Routine UA done in the ED for no appreciable symptoms. 0/4 SIRS. Culture has now grown ESBL E. coli. I do not think this represents infection. - Contact precautions. No abx at this time. (9) DVT prophylaxis: Xarelto Subjective 83 yo female reports mild improvement in her lower leg edema. She reports no other symptoms. Review of Systems Review of Systems: All systems reviewed & are unremarkable except as noted in HPI & below Physical Exam Physical Exam: Constitutional: cooperative; no acute distress Neck: trachea midline, no thyromegaly Respiratory: normal respiratory effort Auscultation: + diminished lung sounds; no crackles, no rales, no rhonchi and no wheezes Cardiovascular: Rate/Rhythm: regular rate and regular rhythm Heart Sounds: normal S1 and normal S2 Gastrointestinal (Abdomen): Inspection/Auscultation: abdomen normal to inspecti on Percussion/Palpation: abdomen soft; abdomen nontender, no guarding, abdomen not rigid and no hepatosplenomegaly Musculoskeletal: 3+ pitting edema lower extremities, legs are less tight. Skin: no rashes, warm and dry Results & Data Vital Signs (Past 12 Hours) Vital Signs Temp Pulse Pulse Resp BP Pulse Ox 07/04/19 19:34 36.5 C 68 18 122/76 90 07/04/19 15:34 36.6 C 68 18 96/58 L 94 07/04/19 10:41 36.5 C 66 19 97/55 L 93 PG Care Time/CCT Total # of Minutes Spent Total Time Spent with Patient: Total time spent is greater than 50% in coordination of care (as documented) at patient's floor/unit and/or counseling patient: (1) Anemia Anemia type: unspecified type Qualified Code(s): D64.9 - Anemia, unspecified
[2019-07-05] MEDS: BUMETANIDE 10 MG in DEXTROSE 5% 10 ML IV SCH ×2 (05:25→15:36)
[2019-07-05 06:32] LABS: Potassium 4.7 mmol/L (3.5-5.1)
[2019-07-05 06:33] LABS: Albumin Level 2.9 gm/dl (3.4-5.0); BUN Creatinine Ratio 18.5 (10-20); Calcium 8.8 mg/dl (8.5-10.1); Creatinine Clr Calc Pharmacy 20.4 ml/min; Est GFR (Non-African American) 20.7
[2019-07-05 07:23] LABS: Hematocrit (blood only) 32.8 % (37-47); Hemoglobin 9.6 g/dL (12.0-16.0); Mean Corpuscular Hemoglobin 27.3 pg (25-34); Mean Corpuscular Volume 93.2 fL (80-100); Mean Platelet Volume 10.2 fL (7.4-10.4); Platelet Count 255 K/uL (130-400); RDW Coefficient of Variation 22.5 % (11.5-14.5); RDW Standard Deviation 75.6 fL (36.4-46.3); Red Blood Count 3.52 M/uL (4.2-5.4)
[2019-07-05 07:24] LABS: Mean Corpuscular Hgb Conc 29.3 g/dL (32-36)
[2019-07-05] MEDS: AMIODARONE 200 MG TAB PO SCH (09:48)
[2019-07-05] MEDS: ATORVASTATIN 40 MG TAB PO SCH (09:48)
[2019-07-05] MEDS: POTASSIUM CHLORIDE 20 MEQ TABCR PO SCH ×2 (09:48→21:22)
[2019-07-05] MEDS: RIVAROXABAN 15 MG TAB PO SCH (09:48)
--- NOTE | 2019-07-05 10:11 | Cardiology Progress Note ---
Date of Service July 05, 2019 Assessment & Plan (1) CHF (congestive heart failure): She presented with fluid retention in part from right heart failure and possibly from diastolic left heart failure. Her fluid status has been getting better, by my estimation ( by weight) I believe she has lost about 5.5 liters or a little over 5-1/2 kg since admission. She still has quite a ways to go. I would recommend continued diuresis. She notes that she does not think she can follow a fluid restriction when she goes home, which may be an issue. We will have to follow her closely in heart failure clinic. (2) CHRISTIANSON (dyspnea on exertion): She had a lot of dyspnea prior to admission, that may have been multifactorial but it is hard to assess now for improvement since she is not active enough to determine whether that has improved. She tells me that she cannot ambulate very well because her legs are weak and I believe she has been denied a rehab hospitalization. She has significant anemia, she is overweight and she had heart failure on admission, all of these could have contributed. (3) Atrial fibrillation: She has longstanding atrial fibrillation and this admission atrial flutter, it sounds as though she had it shortly before admission because she was given some sort of pill by Dr. Perez although she does not know what it is, evidently this was given to her because her heart rate was fast. I would continue amiodarone, she has been on it for some time, and I would discharge her on the current dose (200 mg daily) when she goes home. I did send an amiodarone level to see whether we can increase the dose, that level is not back yet but I am reluctant to increase the dose due to her bradycardia. I am also reluctant to add AV louise blocking medications in addition to amiodarone due to her sinus bradycardia when she is not in atrial flutter. Since she is completely asymptomatic during the arrhythmia, there is no change in her blood pressure during the arrhythmia and it is paroxysmal and not a high percentage of her rhythm I think is acceptable to leave her with this finding. From the standpoint of her arrhythmia she should be on anticoagulation. (4) Anticoagulant long-term use: She should remain on anticoagulation as long as she does not have evidence of bleeding, which I believe she does not. She is on Xarelto, she is on the correct dose (15 mg daily) and I would recommend continuing it. (5) Sinus node dysfunction: She has sinus node dysfunction which is likely in part medication related, she may also have sick sinus syndrome since she has atrial arrhythmias as well as sinus bradycardia. Although she is asymptomatic with her bradycardia her blood pressure is on the low side and I am very reluctant to add negative chronotropic medications in order to control her rate during atrial flutter. Her blood pressure does not seem to be very much related to her heart rate so I would continue with her current regimen. Subjective She is feeling better, she does not feel a lot different but thinks her legs are less edematous. He is still not very active. No cardiovascular symptoms. Physical Exam Physical Exam: Constitutional: Alert, cooperative and in no distress. Pulmonary: Clear to auscultation bilaterally. Cardiac: Regular rhythm with no murmur, gallop or rub. Abdomen: Soft, nontender with normal bowel sounds. Extremities: +2 bilateral pretibial pitting edema, significantly less tense than in the past. Skin: No rash, ecchymoses or petechiae. Results & Data Vital Signs (Past 12 Hours) Vital Signs Temp Pulse Pulse Resp BP Pulse Ox 07/05/19 07:22 36.3 C L 62 19 113/62 91 07/05/19 06:13 36.3 C L 59 L 20 98/63 L 94 07/04/19 23:19 36.5 C 64 20 96/54 L 95 Laboratory Results CBC 07/05/19 07/05/19 Range/Units 06:01 07:03 WBC 8.50 (4.8-10.8) K/uL RBC 3.52 L (4.2-5.4) M/uL Hgb 9.6 L (12.0-16.0) g/dL Hct 32.8 L (37-47) % Plt Count Not Reportable 255 Comprehensive Metabolic Panel 07/04/19 07/05/19 Range/Units 09:34 06:01 Sodium 139 141 (136-145) mmol/L Potassium 4.1 4.7 (3.5-5.1) mmol/L Chloride 100 105 (98-107) mmol/L Carbon Dioxide 35 H 30 (21-32) mmol/L BUN 42 H 39 H (7-18) mg/dl Creatinine 2.32 H 2.13 H (0.6-1.2) mg/dl Glucose 190 H 127 H (70-99) mg/dl Calcium 9.2 8.8 (8.5-10.1) mg/dl Albumin 3.1 L 2.9 L (3.4-5.0) gm/dl Intake and Output 07/04/19 07/05/19 07/05/19 22:59 06:59 14:59 Intake Total 431.167 / 1196.167 250 / 1196.167 Output Total 950 / 2550 1200 / 2550 Balance -518.833 / -1353.833 -950 / -1353.833 Intake: IV 31.167 / 81.167 50 / 81.167 Bumex 10 mg In D5w 10 ml @ 1 MG 31.167 / 81.167 50 / 81.167 /HR 5 mls/hr IV .Q10H DANIEL Rx#: [id number] Oral 400 / 1115 200 / 1115 Output: Urine 950 / 2550 1200 / 2550 Other: Weight 88.3 kg Diagnostic Findings Telemetry: She remains predominantly in sinus bradycardia with a heart rate from 50-60 for the most part. No atrial flutter for the last 48 hours. PG Care Time/CCT Total # of Minutes Spent Total Time Spent with Patient: Total time spent is greater than 50% in coordin ation of care (as documented) at patient's floor/unit and/or counseling patient:
--- NOTE | 2019-07-05 12:28 | Nephrology Progress Note ---
Date of Service July 05, 2019 Assessment & Plan (1) CKD (chronic kidney disease) stage 4, GFR 15-29 ml/min: Arlen has stage IIIB /4 chronic kidney disease with baseline creatinine 1.7-2.0 in the setting of cardiorenal syndrome, diabetes and atherosclerotic disease. Admitted to the hospital with CHF exacerbation and weight gain which has been treated with IV diuretics. She is tolerating therapy well. Renal function stable. She remains on Bumex gtt which would be reasonable to continue for an additional 24 hours. Given stable kidney function and improving volume status, I would suggest converting back to PO Bumex 3 mg PO twice daily once gtt complete. Nephrology has nothing additional to add at this time. We will be happy to provide close outpatient follow up post discharge. Please arrange follow up in the nephrology clinic within 2 weeks of hospital discharge. Outpatient lab results can be faxed to [phone]. Nephrology will sign-off for now. Please call with questions or concerns. (2) Right heart failure: Bumex to be converted to gtt today to encourage negative fluid balance. Plan of care discussed with Dr. Lang. (3) Anemia: Completed IV venofer x 1 gm. Epogen 4000 units SQ provided on 07/01. (4) DM (diabetes mellitus): Subjective Edema slightly improved. Urine output improved with Bumex gtt. Arlen feels well. She hopes to be discharged home from the hospital soon. Review of Systems Review of Systems: All systems reviewed & are unremarkable except as noted in HPI & below Physical Exam Constitutional: well developed; no acute distress Eyes: no scleral abnormality and no corneal abnormality ENMT: Mouth: no oral mucosal abnormality and oral mucous membranes not dry Neck: normal visual inspection and trachea midline Respiratory: normal respiratory effort Auscultation: lungs clear to auscultation bilaterally Cardiovascular: Rate/Rhythm: regular rate Heart Sounds: normal S1 and normal S2 Extremities: + edema Musculoskeletal: Extremities: no cyanosis and no clubbing Skin: normal turgor; no lesions Neurologic: Motor/Sensory: no tremor and no asterixis Psychiatric: Orientation: alert and oriented x 3 Results & Data Vital Signs (Past 12 Hours) Vital Signs Temp Pulse Pulse Resp BP Pulse Ox 07/05/19 11:18 36.6 C 71 19 97/58 L 94 07/05/19 07:22 36.3 C L 62 19 113/62 91 07/05/19 06:13 36.3 C L 59 L 20 98/63 L 94 Laboratory Results Laboratory Results - last 24 hr 07/04/19 07/04/19 07/05/19 16:17 20:22 06:01 WBC RBC Hgb Hct MCV MCH MCHC RDW Std Deviation RDW Coeff of Portia Plt Count Not Reportable MPV Sodium Potassium Chloride Carbon Dioxide Anion Gap BUN Creatinine Est Cr Clr Drug Dosing Est GFR ( Amer) Est GFR (Non-Af Amer) BUN/Creatinine Ratio Glucose POC Glucose 189 H 192 H Calcium Phosphorus Albumin Specimen Hemolysis 07/05/19 07/05/19 07/05/19 06:01 07:03 07:17 WBC 8.50 RBC 3.52 L Hgb 9.6 L Hct 32.8 L MCV 93.2 MCH 27.3 MCHC 29.3 L RDW Std Deviation 75.6 H RDW Coeff of Portia 22.5 H Plt Count 255 MPV 10.2 Sodium 141 Potassium 4.7 Chloride 105 Carbon Dioxide 30 Anion Gap 6.0 BUN 39 H Creatinine 2.13 H Est Cr Clr Drug Dosing 20.4 Est GFR ( Amer) 24.0 Est GFR (Non-Af Amer) 20.7 BUN/Creatinine Ratio 18.5 Glucose 127 H POC Glucose 140 H Calcium 8.8 Phosphorus 3.0 Albumin 2.9 L Specimen Hemolysis 07/05/19 11:13 WBC RBC Hgb Hct MCV MCH MCHC RDW Std Deviation RDW Coeff of Portia Plt Count MPV Sodium Potassium Chloride Carbon Dioxide Anion Gap BUN Creatinine Est Cr Clr Drug Dosing Est GFR ( Amer) Est GFR (Non-Af Amer) BUN/Creatinine Ratio Glucose POC Glucose 158 H Calcium Phosphorus Albumin Specimen Hemolysis PG Care Time/CCT Total # of Minutes Spent Total Time Spent with Patient: Total time spent is greater than 50% in coordination of care (as documented) at patient's floor/unit and/or counseling patient: (1) Anemia Anemia type: unspecified type Qualified Code(s): D64.9 - Anemia, unspecified
[2019-07-05] MEDS: METOPROLOL SUCC 25MG EXT REL TAB PO SCH (21:22)
--- NOTE | 2019-07-05 22:26 | Hospitalist Progress Note ---
Date of Service July 05, 2019 Assessment & Plan (1) Right heart failure: Patient was converted over to Bumex 3 mg twice daily by mouth. CREATININE HAS BEEN RELATIVELY STABLE. On 07/04, placed on bumex drip. Will continue to monitor I's and O's along with daily weights as well as the edema in the lower extremities. Appears to be working as she is more negative. Her legs have become less edematous since this started. (2) HTN (hypertension): BP has been low normal but stable continue metoprolol 25 mg po daily with hold parameters HR remains in the 60s, no symptoms with this. Will monitor. (3) CAD (coronary artery disease): Cardiac medications as described above. Of note, patient has a left bundle branch block on EKG, unclear if this is new but not mentioned in previous cardiology notes. - Troponins negative at 0.04 x 3; no chest pain. (4) Atrial fibrillation: intermittent RVR, rates in the 120's earlier in the stay, appeared more like atrial flutter now better, HR in the 60's - Continue amiodarone - continue Xarelto - continue metoprolol (5) CKD (chronic kidney disease) stage 4, GFR 15-29 ml/min: Baseline Cr ~1.7-2.0, eGFR ~20. Cr is 2. continue Bumex at 3mg PO BID, monitor urine output, weight check BMP daily appreciate recommendations from Dr. Villavicencio, will need to be followed by nephro logy as outpatient We will remove Ying today. Voiding trial. Nursing also reports that that it for has previously infiltrated the IV every time administered. I see that it is since been discontinued. Can discuss iron supplementation with nephrology when she follows up. (6) DM (diabetes mellitus): A1c was 6.2% on 06/15/2019. Does not appear to be on any medications at this time. Has noted allergy to insulin. - no longer checking as sugars as they were always stable (7) Anemia: Hgb was in the 14 range last year, but hgb has been substantially lower this admission. Initially concern for GI bleed. - Anemia labs show iron deficiency continue Venofer while admitted to adequately restore iron (8) Asymptomatic bacteriuria: Routine UA done in the ED for no appreciable symptoms. 0/4 SIRS. Culture has now grown ESBL E. coli. I do not think this represents infection. - Contact precautions. No abx at this time. (9) DVT prophylaxis: Xarelto Subjective Patient reports no new symptoms. Review of Systems Review of Systems: All systems reviewed & are unremarkable except as noted in HPI & below Physical Exam Physical Exam: Constitutional: cooperative; no acute distress Neck: trachea midline, no thyromegaly Respiratory: normal respiratory effort Auscultation: + diminished lung sounds; no crackles, no rales, no rhonchi and no wheezes Cardiovascular: Rate/Rhythm: regular rate and regular rhythm Heart Sounds: normal S1 and normal S2 Gastrointestinal (Abdomen): Inspection/Auscultation: abdomen normal to inspection Percussion/Palpation: abdomen soft; abdomen nontender, no guarding, abdomen not rigid and no hepatosplenomegaly Musculoskeletal: 3+ pitting edema lower extremities, legs are less tight. Skin: no rashes, warm and dry Results & Data Vital Signs (Past 12 Hours) Vital Signs Temp Pulse Pulse Resp BP Pulse Ox 07/05/19 19:22 36.5 C 68 18 120/65 96 07/05/19 15:56 67 07/05/19 15:28 36.6 C 61 18 102/56 L 91 07/05/19 11:18 36.6 C 71 19 97/58 L 94 PG Care Time/CCT Total # of Minutes Spent Total Time Spent with Patient: Total time spent is greater than 50% in coordination of care (as documented) at patient's floor/unit and/or counseling patient: (1) Anemia Anemia type: unspecified type Qualified Code(s): D64.9 - Anemia, unspecified
[2019-07-06] MEDS: BUMETANIDE 10 MG in DEXTROSE 5% 10 ML IV SCH ×2 (00:11→10:15)
[2019-07-06 07:27] LABS: Albumin Level 2.9 gm/dl (3.4-5.0); BUN Creatinine Ratio 20.1 (10-20); Calcium 8.9 mg/dl (8.5-10.1); Creatinine Clr Calc Pharmacy 20.4 ml/min; Est GFR (African American) 24.3
[2019-07-06 07:28] LABS: Phosphorus 3.5 mg/dl (2.5-4.9)
[2019-07-06] MEDS: AMIODARONE 200 MG TAB PO SCH (09:36)
[2019-07-06] MEDS: ATORVASTATIN 40 MG TAB PO SCH (09:36)
[2019-07-06] MEDS: RIVAROXABAN 15 MG TAB PO SCH (09:36)
[2019-07-06] MEDS: POTASSIUM CHLORIDE 20 MEQ TABCR PO SCH ×2 (09:36→21:27)
--- NOTE | 2019-07-06 10:26 | Cardiology Progress Note ---
Date of Service July 06, 2019 Assessment & Plan (1) CHF (congestive heart failure): Her volume status is improving but she continues to appear hypervolemic. Nephrology has recommended discontinuing Bumex drip today and converting back to Bumex 3 mg PO BID. Continue to monitor volume status and ensure continued diuresis with change in diuretic therapy. Continue close monitoring of I's&O's as well as renal function. Low sodium diet. She should follow-up in CHF clinic upon discharge. ADDENDUM (Dr. Torres): Patient seen and examined. Agree with plan as outlined above by Sri Thrasher PA-C. Patient is down 10 pounds in the past 10 days while maintaining stable BUN/creatinine. Shifting from IV to oral meds, hope to maintain or further improve her volume status (she is still at least mildly hypervolemic by neck veins). Defer further diuretic dosing to to nephrology team. If further cardiac input needed over the weekend, please contact Dr. Felix (he will be covering). (2) Atrial fibrillation: She has remained in sinus rhythm with no evidence of atrial fibrillation/flutter overnight. Continue amiodarone 200 mg daily as well as low dose metoprolol. Continue Xarelto for thromboembolic prophylaxis. (3) Anticoagulant long-term use: Continue Xarelto 15 mg daily. Low dose recommended in light of age and creatinine >1.5. (4) Sinus node dysfunction: She is bradycardic but is asymptomatic with this. No change in therapy recommended. Subjective She is feeling well with no complaints. She has ambulated to the bathroom and denies shortness of breath with this activity. She has been sleeping upright in her chair at night. She reports that she continues to have a large amount of lower extremity edema, which extends up to her hips, but she believes it is improved. She denies chest pain or palpitations. She denies lightheadedness or presyncope. Physical Exam Physical Exam: Constitutional: Alert, oriented, in no acute distress HEENT: Head is atraumatic and normocephalic. EOMs intact. Sclera non-icteric. Face is symmetric. No perioral cyanosis. Mucous membranes moist Pulmonary: Normal respiratory effort, clear to auscultation throughout Cardiac: Regular rate and rhythm, normal S1 and S2, no gallops, no rubs, no murmurs Extremities: 2-3+ lower extremity edema which extends up to the hips. No clubbing or cyanosis. Pulses intact Abdomen: Normal bowel sounds, soft, non-tender, no abdominal masses palpated Skin: Normal skin color, turgor, and pigmentation. No rash or skin lesions Neurological: Oriented to person, place, and time Results & Data Vital Signs (Past 12 Hours) Vital Signs Temp Pulse Resp BP Pulse Ox 07/06/19 08:06 98.1 F 60 18 100/60 98 07/06/19 03:38 97.3 F L 64 20 103/64 92 07/05/19 23:14 97.5 F L 84 22 95/57 L 89 L Diagnostic Findings Telemetry: Sinus in the 50s and 60s. PG Care Time/CCT Total # of Minutes Spent Total Time Spent with Patient: Total time spent is greater than 50% in coordination of care (as documented) at patient's floor/unit and/or counseling patient:
[2019-07-06] MEDS: METOPROLOL SUCC 25MG EXT REL TAB PO SCH (21:28)
--- NOTE | 2019-07-06 22:16 | Hospitalist Progress Note ---
Date of Service July 06, 2019 Assessment & Plan (1) Right heart failure: Patient was converted over to Bumex 3 mg twice daily by mouth. CREATININE HAS BEEN RELATIVELY STABLE. On 07/04, placed on bumex drip. Tolerating this on 07/06, creatinine has not worsened. Will continue to monitor I's and O's along with daily weights as well as the edema in the lower extremities. Appears to be working as she is more negative. Her legs have become less edematous since this started. ordered víctor wrap to help decrease lower extremity swelling. (2) HTN (hypertension): BP has been low normal but stable continue metoprolol 25 mg po daily with hold parameters HR remains in the 60s, no symptoms with this. Will monitor. (3) CAD (coronary artery disease): Cardiac medications as described above. Of note, patient has a left bundle branch block on EKG, unclear if this is new but not mentioned in previous cardiology notes. - Troponins negative at 0.04 x 3; no chest pain. (4) Atrial fibrillation: intermittent RVR, rates in the 120's earlier in the stay, appeared more like atrial flutter now better, HR in the 60's - Continue amiodarone - continue Xarelto - continue metoprolol (5) CKD (chronic kidney disease) stage 4, GFR 15-29 ml/min: Baseline Cr ~1.7-2.0, eGFR ~20. Cr is 2. currently on bumex drip, monitor urine output, weight check BMP daily appreciate recommendations from Dr. Villavicencio, will need to be followed by nephrology as outpatient (6) DM (diabetes mellitus): A1c was 6.2% on 06/15/2019. Does not appear to be on any medications at this time. Has noted allergy to insulin. - no longer checking as sugars as they were always stable (7) Anemia: Hgb was in the 14 range last year, but hgb has been substantially lower this admission. Initially concern for GI bleed. - Anemia labs show iron deficiency continue Venofer while admitted to adequately restore iron (8) Asymptomatic bacteriuria: Routine UA done in the ED for no appreciable symptoms. 0/4 SIRS. Culture has now grown ESBL E. coli. I do not think this represents infection. - Contact precautions. No abx at this time. (9) DVT prophylaxis: Xarelto Subjective 83 yo female reports no new symptoms. Review of Systems Constitutional: + weakness; no fever and no fatigue Ear, Nose, Mouth, Throat: as per Subjective / HPI Respiratory: + dyspnea on exertion; no cough and no dyspnea Cardiovascular: + dyspnea on exertion and + edema; no chest pain, no dyspnea at rest and no syncope Musculoskeletal: as per Subjective / HPI Integumentary: + rash Neurologic: + unsteadiness and + falls Psychiatric: as per Subjective / HPI Physical Exam Physical Exam: Constitutional: cooperative; no acute distress Neck: trachea midline, no thyromegaly Respiratory: normal respiratory effort Auscultation: + diminished lung sounds; no crackles, no rales, no rhonchi and no wheezes Cardiovascular: Rate/Rhythm: regular rate and regular rhythm Heart Sounds: normal S1 and normal S2 Gastrointestinal (Abdomen): Inspection/Auscultation: abdomen normal to inspection Percussion/Palpation: abdomen soft; abdomen nontender, no guarding, abdomen not rigid and no hepatosplenomegaly Musculoskeletal: 3+ pitting edema lower extremities, legs are less tight. Skin: no rashes, warm and dry Results & Data Vital Signs (Past 12 Hours) Vital Signs Temp Pulse Pulse Resp BP Pulse Ox 07/06/19 19:02 36.7 C 62 18 90/53 L 94 07/06/19 15:31 36.6 C 60 19 113/62 93 07/06/19 11:28 36.9 C 64 16 99/62 L 96 PG Care Time/CCT Total # of Minutes Spent Total Time Spent with Patient: Total time spent is greater than 50% in coordination of care (as documented) at patient's floor/unit and/or counseling patient: (1) Anemia Anemia type: unspecified type Qualified Code(s): D64.9 - Anemia, unspecified
[2019-07-07] MEDS: BUMETANIDE 10 MG in DEXTROSE 5% 10 ML IV SCH ×3 (02:09→20:05)
[2019-07-07] MEDS: ATORVASTATIN 40 MG TAB PO SCH (09:01)
[2019-07-07] MEDS: AMIODARONE 200 MG TAB PO SCH (09:01)
[2019-07-07] MEDS: RIVAROXABAN 15 MG TAB PO SCH (09:01)
[2019-07-07] MEDS: POTASSIUM CHLORIDE 20 MEQ TABCR PO SCH ×2 (09:01→20:07)
[2019-07-07 10:57] LABS: Hematocrit (blood only) 34.2 % (37-47); Mean Corpuscular Hemoglobin 27.1 pg (25-34); Mean Corpuscular Hgb Conc 29.2 g/dL (32-36); Mean Corpuscular Volume 92.7 fL (80-100); Mean Platelet Volume 11.1 fL (7.4-10.4); Platelet Count 208 K/uL (130-400); RDW Coefficient of Variation 22.7 % (11.5-14.5); RDW Standard Deviation 75.5 fL (36.4-46.3); Red Blood Count 3.69 M/uL (4.2-5.4); White Blood Count 8.46 K/uL (4.8-10.8)
[2019-07-07 10:58] LABS: Calcium 9.1 mg/dl (8.5-10.1); Creatinine Clr Calc Pharmacy 20.5 ml/min; Est GFR (African American) 24.3; Potassium 3.7 mmol/L (3.5-5.1)
--- NOTE | 2019-07-07 19:33 | Hospitalist Progress Note ---
Date of Service July 07, 2019 Assessment & Plan (1) Right heart failure: Patient was converted over to Bumex 3 mg twice daily by mouth. CREATININE HAS BEEN RELATIVELY STABLE. On 07/05, placed on bumex drip. Tolerating this on 07/06, creatinine has not worsened. Will continue to monitor I's and O's along with daily weights as well as the edema in the lower extremities. Appears to be working as she is more negative. Her legs have become less edematous since this started. ordered víctor wrap to help decrease lower extremity swelling. (2) HTN (hypertension): BP has been low normal but stable continue metoprolol 25 mg po daily with hold parameters HR remains in the 60s, no symptoms with this. Will monitor. (3) CAD (coronary artery disease): Cardiac medications as described above. Of note, patient has a left bundle branch block on EKG, unclear if this is new but not mentioned in previous cardiology notes. - Troponins negative at 0.04 x 3; no chest pain. (4) Atrial fibrillation: intermittent RVR, rates in the 120's earlier in the stay, appeared more like atrial flutter now better, HR in the 60's - Continue amiodarone - continue Xarelto - continue metoprolol (5) CKD (chronic kidney disease) stage 4, GFR 15-29 ml/min: Baseline Cr ~1.7-2.0, eGFR ~20. Cr is 2. currently on bumex drip, monitor urine output, weight check BMP daily appreciate recommendations from Dr. Villavicencio, will need to be followed by nephrology as outpatient (6) DM (diabetes mellitus): A1c was 6.2% on 06/15/2019. Does not appear to be on any medications at this time. Has noted allergy to insulin. - no longer checking as sugars as they were always stable (7) Anemia: Hgb was in the 14 range last year, but hgb has been substantially lower this admission. Initially concern for GI bleed. - Anemia labs show iron deficiency continue Venofer while admitted to adequately restore iron (8) Asymptomatic bacteriuria: Routine UA done in the ED for no appreciable symptoms. 0/4 SIRS. Culture has now grown ESBL E. coli. I do not think this represents infection. - Contact precautions. No abx at this time. (9) DVT prophylaxis: Xarelto Subjective Patient reports doing well. Patient has no new complaints. Review of Systems Review of Systems: All systems reviewed & are unremarkable except as noted in HPI & below Physical Exam Physical Exam: Constitutional: cooperative; no acute distress Neck: trachea midline, no thyromegaly Respiratory: normal respiratory effort Auscultation: + diminished lung sounds; no crackles, no rales, no rhonchi and no wheezes Cardiovascular: Rate/Rhythm: regular rate and regular rhythm Heart Sounds: normal S1 and normal S2 Gastrointestinal (Abdomen): Inspection/Auscultation: abdomen normal to inspection Percussion/Palpation: abdomen soft; abdomen nontender, no guarding, abdomen not rigid and no hepatosplenomegaly Musculoskeletal: 3+ pitting edema lower extremities, legs are now wrapped in víctor bandage. Skin: no rashes, warm and dry Results & Data Vital Signs (Past 12 Hours) Vital Signs Temp Pulse Resp BP Pulse Ox 07/07/19 19:18 36.4 C L 59 L 16 130/75 91 07/07/19 15:20 36.4 C L 57 L 20 116/71 94 07/07/19 14:57 91 07/07/19 11:14 36.7 C 56 L 18 94/58 L 93 PG Care Time/CCT Total # of Minutes Spent Total Time Spent with Patient: Total time spent is greater than 50% in coordination of care (as documented) at patient's floor/unit and/or counseling patient: (1) Anemia Anemia type: unspecified type Qualified Code(s): D64.9 - Anemia, unspecified
[2019-07-07] MEDS: METOPROLOL SUCC 25MG EXT REL TAB PO SCH (20:07)
[2019-07-07] MEDS: ACETAMINOPHEN 325 MG TAB PO PRN (22:08)
[2019-07-08] MEDS: ACETAMINOPHEN 325 MG TAB PO PRN ×2 (04:54→13:28)
[2019-07-08] MEDS: BUMETANIDE 10 MG in DEXTROSE 5% 10 ML IV SCH (05:05)
[2019-07-08 06:33] LABS: BUN Creatinine Ratio 19.8 (10-20); Est GFR (African American) 22.2; Est GFR (Non-African American) 19.2; Potassium 3.6 mmol/L (3.5-5.1)
[2019-07-08] MEDS: ATORVASTATIN 40 MG TAB PO SCH (08:37)
[2019-07-08] MEDS: POTASSIUM CHLORIDE 20 MEQ TABCR PO SCH ×2 (08:37→20:53)
[2019-07-08] MEDS: AMIODARONE 200 MG TAB PO SCH (08:38)
[2019-07-08] MEDS: RIVAROXABAN 15 MG TAB PO SCH (08:38)
[2019-07-08] MEDS: METOPROLOL SUCC 25MG EXT REL TAB PO SCH (20:53)
--- NOTE | 2019-07-08 21:46 | Hospitalist Progress Note ---
Date of Service July 08, 2019 Assessment & Plan (1) Right heart failure: Patient was converted over to Bumex 3 mg twice daily by mouth. CREATININE HAS BEEN RELATIVELY STABLE. On 07/05, placed on bumex drip. Stopped Bumex on 07/08. Patient not feeling well. Will monitor for 24 hours. Labs look benign, no new exam finidngs. Tele mnitor not showing new abnormalities. Will continue to monitor I's and O's along with daily weights as well as the edema in the lower extremities. Appears to be working as she is more negative. Her legs have become less edematous since this started. ordered víctor wrap to help decrease lower extremity swelling. If patient feels better on 07/09, can discharge home. Bumex 3mg PO BID does not appear to be enough for home. Will consider adding a second diuretic: metolazone. held adding it on 07/08 as patient felt sick. (2) HTN (hypertension): BP has been low normal but stable continue metoprolol 25 mg po daily with hold parameters HR remains in the 60s, no symptoms with this. Will monitor. (3) CAD (coronary artery disease): Cardiac medications as described above. Of note, patient has a left bundle branch block on EKG, unclear if this is new but not mentioned in previous cardiology notes. - Troponins negative at 0.04 x 3; no chest pain. (4) Atrial fibrillation: intermittent RVR, rates in the 120's earlier in the stay, appeared more like atrial flutter now better, HR in the 60's - Continue amiodarone - continue Xarelto - continue metoprolol (5) CKD (chronic kidney disease) stage 4, GFR 15-29 ml/min: Baseline Cr ~1.7-2.0, eGFR ~20. Cr is 2. currently on bumex drip, monitor urine output, weight check BMP daily appreciate recommendations from Dr. Villavicencio, will need to be followed by nephrology as outpatient (6) DM (diabetes mellitus): A1c was 6.2% on 06/15/2019. Does not appear to be on any medications at this time. Has noted allergy to insulin. - no longer checking as sugars as they were always stable (7) Anemia: Hgb was in the 14 range last year, but hgb has been substantially lower this admission. Initially concern for GI bleed. - Anemia labs show iron deficiency continue Venofer while admitted to adequately restore iron (8) Asymptomatic bacteriuria: Routine UA done in the ED for no appreciable symptoms. 0/4 SIRS. Culture has now grown ESBL E. coli. I do not think this represents infection. - Contact precautions. No abx at this time. (9) DVT prophylaxis: Jenna Allen was at bedside and was very concerned that today she was not feeling well. Patient reports she had low energy and that it was difficult for her to get out of bed. She also states that she did not have an appetite today either. Review of Systems Review of Systems: All systems reviewed & are unremarkable except as noted in HPI & below Physical Exam Physical Exam: Constitutional: cooperative; no acute distress Neck: trachea midline, no thyromegaly Respiratory: normal respiratory effort Auscultation: + diminished lung sounds; no crackles, no rales, no rhonchi and no wheezes Cardiovascular: Rate/Rhythm: regular rate and regular rhythm Heart Sounds: normal S1 and normal S2 Gastrointestinal (Abdomen): Inspection/Auscultation: abdomen normal to inspection Percussion/Palpation: abdomen soft; abdomen nontender, no guarding, abdomen not rigid and no hepatosplenomegaly Musculoskeletal: 3+ pitting edema lower extremities, legs are now wrapped in víctor bandage. no erythema noted Skin: no rashes, warm and dry Results & Data Vital Signs (Past 12 Hours) Vital Signs Temp Pulse Resp BP Pulse Ox 07/08/19 19:05 36.9 C 74 16 143/63 H 92 07/08/19 16:00 37.6 C H 65 18 128/83 92 07/08/19 11:19 37.4 C 66 18 123/87 94 PG Care Time/CCT Total # of Minutes Spent Total Time Spent with Patient: Total time spent is greater than 50% in coordination of care (as documented) at patient's floor/unit and/or counseling patient: (1) Anemia Anemia type: unspecified type Qualified Code(s): D64.9 - Anemia, unspecified
[2019-07-09] MEDS ORDERED: PROCHLORPERAZINE 5 MG in SYRINGE 4 ML IV ONE (03:15)
[2019-07-09] MEDS: POTASSIUM CHLORIDE 20 MEQ TABCR PO SCH ×2 (07:43→20:05)
[2019-07-09] MEDS: ATORVASTATIN 40 MG TAB PO SCH (07:44)
[2019-07-09] MEDS: AMIODARONE 200 MG TAB PO SCH (07:44)
[2019-07-09] MEDS: RIVAROXABAN 15 MG TAB PO SCH (07:44)
[2019-07-09] MEDS: BUMETANIDE 1 MG TAB PO SCH (09:31)
[2019-07-09 11:25] LABS: Hematocrit (blood only) 36.2 % (37-47); Hemoglobin 10.8 g/dL (12.0-16.0); Mean Corpuscular Hemoglobin 28.3 pg (25-34); Mean Corpuscular Volume 94.8 fL (80-100); Mean Platelet Volume 10.6 fL (7.4-10.4); Platelet Count 168 K/uL (130-400); RDW Coefficient of Variation 22.9 % (11.5-14.5); RDW Standard Deviation 77.8 fL (36.4-46.3); Red Blood Count 3.82 M/uL (4.2-5.4); White Blood Count 25.31 K/uL (4.8-10.8)
[2019-07-09 11:26] LABS: Mean Corpuscular Hgb Conc 29.8 g/dL (32-36)
[2019-07-09] MEDS ORDERED: SODIUM CHLORIDE 0.9% 1000ML 500 ML IV ONE (11:35)
[2019-07-09 11:44] LABS: Albumin Level 2.9 gm/dl (3.4-5.0); BUN Creatinine Ratio 20.1 (10-20); Calcium 9.7 mg/dl (8.5-10.1); Creatinine Clr Calc Pharmacy 16.1 ml/min; Est GFR (African American) 18.2; Est GFR (Non-African American) 15.7; Potassium 4.6 mmol/L (3.5-5.1)
[2019-07-09 11:45] LABS: Acanthocytes 1+; Anisocytosis Present; Basophils # (auto) 0.03 K/uL (0-0.2); Basophils % (auto) 0.1 %; Eosinophils # (auto) 0.01 K/uL (0-0.5); Immature Granulocytes # (auto) 0.12 K/uL (0.00-0.02); Immature Granulocytes % (auto) 0.5 %; Lymphocytes # (auto) 2.28 K/uL (1.2-3.4); Monocytes # (auto) 1.17 K/uL (0.11-0.59); Monocytes % (auto) 4.6 %; Neutrophils % (auto) 85.8 %; Toxic Vacuolation 1+
[2019-07-09 11:50] LABS: Albumin Globulin Ratio 0.7 (0.9-2); Bilirubin,Total 1.9 mg/dl (0.2-1); Globulin 4.1 gm/dl (2.5-4.0); Troponin I 0.076 ng/ml (0-0.045)
--- NOTE | 2019-07-09 12:00 | XRay Report ---
XR chest 1V portable CLINICAL HISTORY: Leukocytosis COMPARISON STUDY: 06/17/2019 FINDINGS: The heart is enlarged. There is aortic tortuosity/ectasia. There is prominence of central p ulmonary vessels without evidence of overt failure. There is no lobar consolidation. There are no ple ural effusions.[ IMPRESSION: Stable cardiomegaly. No evidence of focal pulmonary consolidation. ACT 112: Negative or not required by law. Electronically signed by: Anson Galeas M.D. 07/09/2019 11:58 AM
--- NOTE | 2019-07-09 12:00 | XRay Report ---
XR KUB/Abdomen 1 view CLINICAL HISTORY: Nausea COMPARISON STUDY: No previous studies for comparison. FINDINGS: There is gaseous prominence of both large and small bowel loops. There is mild fecal retent ion. There is no conventional radiographic evidence of a high-grade bowel obstruction. IMPRESSION: 1. Fecal retention with mild gaseous prominence of both large and small bowel loops. No conventional radiographic evidence of a high-grade bowel obstruction. ACT 112: Negative or not required by law. Electronically signed by: Anson Galeas M.D. 07/09/2019 11:59 AM
[2019-07-09 12:07] LABS: Appearance Urine Cloudy (Clear); Bacteria Urine Automated 2+ (Negative); Blood Urine Negative (Negative); Color Urine Dark Yellow; Epithelial Cell Urine Auto 0-5 /lpf (0-5); Glucose Urine UA Negative (Negative); Ketones Urine Trace (Negative); Leukocyte Esterase Urine 1+ (Negative); Nitrite Urine Negative (Negative); Protein Urine 1+ (Negative); RBC Urine Automated 0-4 /hpf (0-4); Specific Gravity Urine 1.019 (1.000-1.030); Urobilinogen Urine Negative (Negative); WBC Urine Automated >30 /hpf (0-5)
[2019-07-09 12:32] LABS: Bilirubin Urine Negative (Negative); Ictotest Urine Negative (Negative)
--- NOTE | 2019-07-09 13:25 | Hospitalist Progress Note ---
Date of Service July 09, 2019 Assessment & Plan (1) UTI (urinary tract infection): WBC up to 25k, tachycardia today prior urine culture with ESBL E coli UA with > 30k WBC will start on Ertapenem, renally dosed repeat CBC tomorrow (2) Right heart failure: Patient was converted over to Bumex 3 mg twice daily by mouth On 07/05, placed on bumex drip. Stopped Bumex drip on 07/08. Cr up to 2.68 despite being in hospital for a month, there has been little improvement in clinical status still with edema palliative consult placed as patient would not be interested in hemodialysis (3) HTN (hypertension): BP has been low normal but stable continue metoprolol 25 mg po daily with hold parameters HR up to 110 right now BP low at 88 systolic, will give some volume back as she appears intravascularly contracted (4) CAD (coronary artery disease): Cardiac medications as described above. Of note, patient has a left bundle branch block on EKG, unclear if this is new but not mentioned in previous cardiology notes. - Troponin minimally elevated at 0.07, no chest pain, EKG difficult to read because of RBBB (5) Atrial fibrillation: HR up to 120-110 range today, started this morning around 0600 likely triggered by low volume, UTI - Continue amiodarone - continue Xarelto - continue metoprolol with hold parameters give 500cc bolus of NSS to help volume, try to improve HR (6) CKD (chronic kidney disease) stage 4, GFR 15-29 ml/min: Baseline Cr ~1.7-2.0, eGFR ~20. Cr up to 2.68 today after Bumex drip over the weekend BUN up to 54 appears volume contracted with low BP, tachycardia will hold Bumex this evening, give 500cc boluse check BMP in the morning if still elevated or getting worse will ask nephrology to see again palliative care consult placed, talked with Belle LAROSE patient states that she would NOT want hemodialysis in the future need to talk about goals of care, potential for hospice (7) DM (diabetes mellitus): A1c was 6.2% on 06/15/2019. Does not appear to be on any medications at this time. Has noted allergy to insulin. - no longer checking as sugars as they were always stable (8) Anemia: Hgb was in the 14 range last year, but hgb has been substantially lower this admission. Initially concern for GI bleed. - Anemia labs show iron deficiency continue Venofer while admitted to adequately restore iron (9) DVT prophylaxis: Linneato Alejandro patient was for potential discharge today but she was not feeling well in general she had nausea, fatigue, just not feeling as well as days before despite having nausea she ate her entire breakfast reviewed events from the past week in the chart, she had been on Bumex drip up until yesterday changed back to Bumex 3mg daily checked some stat labs due to her decline in clinical status Cr up to 2.68, BUN up to 54, WBC markedly elevated at 25k which was new finding UA appeared dirty with 30WBC, had grown ESBL on prior urine culture 06/15, will start Ertapenem CXR without infiltrate, KUB with colon dilatation and some fecal retention on monitor her HR up to 110 which was new, she had been around 60's for past two weeks troponin was only 0.07, EKG with RBBB, LAFB, no new findings except elevated HR long talk with patient, her and daughter at the bedside discussed difficult situation with her Cr rising, likely she is volume contracted discussed the difficult balance with renal and heart failure, despite being here for a month there has been little improvement although she has achieved some diuresis, her strength, mobility are poor discussed that certainly HD not indicated now but may be indicated in the future if volume cannot be controlled with Bumex alone family does not want HD, and daughter support this decision discussed that we should pursue palliative care, they agree with the consult discussed with Belle Villafuerte, she will see with palliative Review of Systems Review of Systems: All systems reviewed & are unremarkable except as noted in HPI & below Constitutional: + fatigue and + weakness; no fever Respiratory: + dyspnea on exertion Cardiovascular: + edema; no chest pain Gastrointestinal: + nausea and + constipation; no abdominal pain, no vomiting and no diarrhea/loose stools Physical Exam Constitutional: WD/WN, vitals as above Eyes: PERRL, conjunctivae normal, anicteric sclerae ENMT: external ear and nose normal, oropharynx normal Neck: trachea midline, no thyromegaly Respiratory: normal respiratory effort, lungs clear to auscultation Cardiovascular: Rate/Rhythm: + tachycardic and + irregularly irregular Heart Sounds: normal S1 and normal S2; no murmur Extremities: normal capillary refill and + edema (pitting to knees) Gastrointestinal (Abdomen): normal bowel sounds, soft, nontender, no hepatosplenomegaly Musculoskeletal: no cyanosis or clubbing, extremities motor strength 5/5 Skin: no rashes, warm and dry Neurologic: patellar DTR's 2+ bilat, sensation intact and PERRL, EOMI, accommodation nl, no face palsy, no dysarthria Psychiatric: A+Ox3, euthymic affect Lymphatic: no cervical or axillary lymphadenopathy Results & Data Vital Signs (Past 12 Hours) Vital Signs Temp Pulse Pulse Resp BP Pulse Ox 07/09/19 11:31 36.8 C 111 H 16 88/60 L 95 07/09/19 07:11 37.1 C 110 H 17 90/57 L 99 07/09/19 07:00 122 H 07/09/19 03:48 37.5 C 66 20 103/68 96 Laboratory Results Laboratory Results - last 24 hr 07/09/19 07/09/19 07/09/19 11:15 11:15 11:45 WBC 25.31 H RBC 3.82 L Hgb 10.8 L Hct 36.2 L MCV 94.8 MCH 28.3 MCHC 29.8 L RDW Std Deviation 77.8 H RDW Coeff of Portia 22.9 H Plt Count 168 MPV 10.6 H Immature Gran % (Auto) 0.5 Neut % (Auto) 85.8 Lymph % (Auto) 9.0 [place] % (Auto) 4.6 Eos % (Auto) 0.0 Baso % (Auto) 0.1 Immature Gran # (Auto) 0.12 H Neut # (Auto) 21.70 H Lymph # (Auto) 2.28 [place] # (Auto) 1.17 H Eos # (Auto) 0.01 Baso # (Auto) 0.03 Toxic Vacuolation 1+ Anisocytosis Present Acanthocytes (Spur) 1+ Sodium 136 Potassium 4.6 D Chloride 99 Carbon Dioxide 30 Anion Gap 7.0 BUN 54 H Creatinine 2.68 H D Est Cr Clr Drug Dosing 16.1 Est GFR ( Amer) 18.2 Est GFR (Non-Af Amer) 15.7 BUN/Creatinine Ratio 20.1 H Glucose 186 H Calcium 9.7 Total Bilirubin 1.9 H AST 131 H ALT 76 Alkaline Phosphatase 157 H Troponin I 0.076 H* Total Protein 7.0 Albumin 2.9 L Globulin 4.1 H Albumin/Globulin Ratio 0.7 L Urine Color Dark Yellow Urine Appearance Cloudy A Urine pH 5.0 Ur Specific [place] 1.019 Urine Protein 1+ H Urine Glucose (UA) Negative Urine Ketones Trace H Urine Blood Negative Urine Nitrite Negative Urine Bilirubin Negative Urine Urobilinogen Negative Ur Leukocyte Esterase 1+ H Urine WBC (Auto) >30 H Urine RBC (Auto) 0-4 U Hyaline Cast (Auto) 10-30 H U Epithel Cells (Auto) 0-5 Urine Bacteria (Auto) 2+ H Urine Yeast Not Reportable Diagnostic Findings XR chest 1V portable IMPRESSION: Stable cardiomegaly. No evidence of focal pulmonary consolidation. XR KUB/Abdomen 1 view IMPRESSION: 1. Fecal retention with mild gaseous prominence of both large and small bowel loops. No conventional radiographic evidence of a high-grade bowel obstruction. Medications Administered Current Inpatient Medications Acetaminophen (Tylenol) 650 mg PO Q4H PRN PRN Reason: Pain or Fever Stop: 07/14/19 16:09 Last Admin: 07/08/19 13:28 Dose: 650 mg Documented by: [facility]one [facility] (Cord[facility]) [facility]: 07/15/19 08:59 Last Admin: 07/09/19 07:44 Dose: 200 mg Documented by: Atorvastatin Calcium (Lipitor) 80 mg PO QAM [facility] Stop: 07/15/19 08:59 Last Admin: 07/09/19 07:44 Dose: 80 mg Documented by: Bumetanide (Bumex) 3 mg PO BID17 [facility] Stop: 07/29/19 16:59 Last Admin: 07/09/19 09:31 Dose: 3 mg Documented by: Dextrose (Dextrose 50%) 25 - 50 ml IV UD PRN; Protocol PRN Reason: Hypoglycemia Protocol Stop: 07/14/19 16:09 Glucagon (Glucagen) 1 mg SQ UD PRN; Protocol PRN Reason: Hypoglycemia Protocol Stop: 07/14/19 16:09 Glucose (Dex4 Glucose) 4 - 8 tabs PO UD PRN; Protocol PRN Reason: Hypoglycemia Protocol Stop: 07/14/19 16:09 Glucose (Glucose 40%) 15 - 30 gm PO UD PRN; Protocol PRN Reason: Hypoglycemia Protocol Stop: 07/14/19 16:09 Ertapenem 500 mg/ Sodium (Chloride) 55 mls @ 100 mls/hr IV Q24H DANIEL; Protocol Stop: 07/19/19 14:29 Magnesium Hydroxide (Milk Of Magnesia) 30 ml PO Q6H PRN PRN Reason: Constipation Stop: 07/21/19 19:57 Last Admin: 07/03/19 08:06 Dose: 30 ml Documented by: Metoprolol Succinate (Toprol Xl) 25 mg PO QPM DANIEL Stop: 07/23/19 20:59 Last Admin: 07/08/19 20:53 Dose: 25 mg Documented by: Miscellaneous (Carbohydrates For Hypoglycemia) 15 - 30 gm PO UD PRN PRN Reason: Hypoglycemia Protocol Stop: 07/14/19 16:09 Ondansetron HCl (Zofran) 4 mg IV Q6H PRN PRN Reason: Nausea Stop: 07/14/19 16:09 Last Admin: 07/09/19 12:04 Dose: 4 mg Documented by: Potassium Chloride (Klor-Con M20) 20 meq PO BID DANIEL Stop: 07/20/19 20:59 Last Admin: 07/09/19 07:43 Dose: 20 meq Documented by: Rivaroxaban (Xarelto) 15 mg PO DAILY [facility] Stop: 07/21/19 08:59 Last Admin: 07/09/19 07:44 Dose: 15 mg Documented by: PG Care Time/CCT Total # of Minutes Spent Total Time Spent: 60 Total Time Spent with Patient: Total time spent is greater than 50% in coordination of care (as documented) at patient's floor/unit and/or counseling patient: (1) Anemia Anemia type: unspecified type Qualified Code(s): D64.9 - Anemia, unspecified
[2019-07-09] MEDS ORDERED: ERTAPENEM SODIUM 500 MG in SODIUM CHLORIDE 0.9% 50 ML IV SCH (14:30)
--- NOTE | 2019-07-09 15:05 | Palliative Care Consultation ---
Date of Consultation July 09, 2019 Assessment & Plan (1) Goals of care, counseling/discussion: Patient is an 83-year-old female with a past medical history significant for A. fib, CAD, hypertension, CHF, CKD stage IV who was admitted on 06/14 for increased shortness of breath. Patient has required a Bumex drip-she has recently been transitioned to p.o. Bumex. Patient's heart rate was controlled with amiodarone and metoprolol-became tachycardic earlier today-thought to be due to intravascular depletion. Patient is receiving gentle IV hydration at 100 cc an hour. Patient continues to have weeping edema of the left lower extremity. May be suffering from cardiorenal syndrome. Asked to meet with patient regarding goals of care-particularly whether or not she be interested in hemodialysis. Patient awake and alert, but quite fatigued. No family at bedside. Patient states her and [id number] were in earlier this a.m. Initiated discussion regarding hemodialysis-patient did not feel she would be interested in that. Contacted patient's by phone-he had returned home as he was not feeling well, not sure when he would be well enough to return to the hospital. Patient had a spike in her white count this a.m.-urine was suggestive possible UTI-was leukocyte positive but nitrite negative, patient with history of ESBL in May, started on ertapenem. Patient short of breath at rest, increases with conversation, appears very fatigued. -Goals of care-initiate discussion regarding hemodialysis-patient stated she did not feel she wanted to undergo dialysis and did not feel she would be strong enough to undergo dialysis. Will need to have further discussions when family present to discuss transition to a more palliative care approach. -CHF-patient's last echo performed on 04/20 showed ejection fraction of 55 to 60%, severely dilated RV with severely reduced systolic function, severe TR as well as severe pulmonary hypertension. Patient has undergone aggressive diuresis with minimal improvement in her symptoms. -CKD stage IV-baseline creatinine was 1.72.0, creatinine on labs done this a.m. was 2.68. Fluid status will be difficult to manage without HD-patient not interested in HD at this time-we will need to discuss when patient's and family available. -A. fib with RVR-rate had been controlled with amiodarone and metoprolol-patient currently tachycardic, thought to be secondary to intravascular depletion. Patient receiving gentle IV hydration. Continue Xarelto. -Elevated WBC-UA suggestive of UTI, patient started on ertapenem, ID and sensitivities pending Will continue to follow and assist patient and family with medical decision making. (2) CHF (congestive heart failure): (3) CKD (chronic kidney disease) stage 4, GFR 15-29 ml/min: (4) Atrial fibrillation with RVR: (5) UTI (urinary tract infection): History of Present Illness Reason for Consultation: Discuss goals of care including HD Requesting Physician: Dr. Ramesh Soni Attending Physician: Ramesh Soni, DO History of Present Illness Patient is an 83-year-old female with a past medical history significant for A. fib, CAD, hypertension, CHF, CKD stage IV who was admitted on 06/14 for increased shortness of breath. Patient has required a Bumex drip-she has recently been transitioned to p.o. Bumex. Patient's heart rate was controlled with amiodarone and metoprolol-became tachycardic earlier today-thought to be due to intravascular depletion. Patient is receiving gentle IV hydration at 100 cc an hour. Patient continues to have weeping edema of the left lower extremity. May be suffering from cardiorenal syndrome. Asked to meet with patient regarding goals of care-particularly whether or not she be interested in hemodialysis. Patient awake and alert, but quite fatigued. No family at bedside. Patient states her and [id number] were in earlier this a.m. Initiated discussion regarding hemodialysis-patient did not feel she would be interested in that. Contacted patient's by phone-he had returned home as he was not feeling well, not sure when he would be well enough to return to the hospital. Patient had a spike in her white count this a.m.-urine was suggestive possible UTI-was leukocyte positive but nitrite negative, patient with history of ESBL in May, started on ertapenem. Patient short of breath at rest, increases with conversation, appears very fatigued. Allergies Allergy/AdvReac Type Severity Reaction Status Date / Time Insulins Allergy Severe syncope Verified 06/14/19 10:47 Home Medications Home Medications Medication Instructions Recorded Confirmed Type Hair, Skin, Nails with Biotin 1 tab PO DAILY 09/11/18 06/14/19 History Xarelto 15 mg PO QAM 09/11/18 06/14/19 History amiodarone 200 mg PO QAM 09/11/18 06/14/19 History atorvastatin 80 mg PO QAM 09/11/18 06/14/19 History bumetanide 1 mg PO 0800,1400 09/11/18 06/14/19 History potassium chloride 10 meq PO BID 09/11/18 06/14/19 History Patient History Medical History Atrial fibrillation Chronic obstructive pulmonary disease NO INHALERS Diabetes mellitus, type 2 H/O. NO MEDICATIONS CURRENTLY History of cardioversion Hyperlipidemia Hypertension On home oxygen therapy 3LPM VIA GA @ HS. Surgical History History of cardiac cath ~2008 & ~2015 AT [facility] History of cataract surgery History of heart artery stent X2 (~2008 & ~2015) Family History Mother Family history of diabetes mellitus Father Family history of diabetes mellitus Social History Preferred Language: Greenlandic Communication Ability: Effective Health Services Coordinator Required: No Beliefs That Will Affect Care: None Current Living Situation: Spouse Feels Safe at Home: Yes Smoking Status: Former smoker Second Hand Exposure: Yes ; Hx Alcohol Use: No Hx Substance Use: No Review of Systems Review of Systems: Negative for fever, chills, chest pain Positive for shortness of breath, edema, low back pain and fatigue Physical Exam Physical Exam: PE: Patient awake, alert and oriented, appears fatigued HEENT: EOMI, hearing within normal limits Respirations: Increased respiratory rate, shortness of breath with conversation and at rest CV: Tachycardic, 3-4+ pitting edema lower extremities left greater than right Abdomen: Soft, nontender Extremities: Generalized weakness Neuro: Alert and oriented Results & Data Vital Signs (Past 12 Hours) Vital Signs Temp Pulse Pulse Resp BP Pulse Ox 07/09/19 14:21 94/63 L 07/09/19 11:31 98.2 F 111 H 16 88/60 L 95 07/09/19 07:11 98.8 F 110 H 17 90/57 L 99 07/09/19 07:00 122 H 07/09/19 03:48 99.5 F 66 20 103/68 96 PG Care Time/CCT Total # of Minutes Spent Total Time Spent with Patient: Total time 55 minutes with greater than 50% of the time spent at bedside initiating conversation regarding goals of care with patient
[2019-07-09] MEDS: METOPROLOL SUCC 25MG EXT REL TAB PO SCH (20:05)
[2019-07-10] MEDS ORDERED: PROCHLORPERAZINE 5 MG in SYRINGE 4 ML IV ONE (00:18)
[2019-07-10] MEDS ORDERED: ATROPINE SULFATE 0.1 MG/ML 10ML SYR IV ONE (03:52)
[2019-07-10] MEDS ORDERED: DOPamine 400MG / 250ML D5W IV ONE (04:06)
[2019-07-10] MEDS ORDERED: SODIUM BICARB 8.4% INJ 50 MEQ/50 ML SYR ONE ×2 (04:11→05:25)
[2019-07-10 04:42] LABS: Base Excess ABG -3.2 mEq/L (-9-1.8); HCO3 ABG 22 mmol/L (19-24); Oxygen Saturation ABG 85.4 % (90-95); PCO2 ABG 40 mmHg (35-46); PO2 ABG 56 mmHg (80-95); pH ABG 7.36 (7.35-7.45)
[2019-07-10 04:47] LABS: Allen Test POS (Pos)
[2019-07-10 04:55] LABS: Acanthocytes 1+; Basophils # (auto) 0.03 K/uL (0-0.2); Basophils % (auto) 0.1 %; Echinocytes 2+; Hematocrit (blood only) 34.3 % (37-47); Hemoglobin 9.8 g/dL (12.0-16.0); Immature Granulocytes # (auto) 0.18 K/uL (0.00-0.02); Immature Granulocytes % (auto) 0.7 %; Lymphocytes % (auto) 8.2 %; Mean Corpuscular Hemoglobin 27.9 pg (25-34); Mean Corpuscular Hgb Conc 28.6 g/dL (32-36); Mean Corpuscular Volume 97.7 fL (80-100); Mean Platelet Volume 11.4 fL (7.4-10.4); Monocytes # (auto) 1.69 K/uL (0.11-0.59); Neutrophils # (auto) 20.36 K/uL (1.4-6.5); Nucleated RBC # (auto) 0.04 K/uL (0-0); Nucleated RBC % (auto) 0.1 %; Platelet Count 169 K/uL (130-400); Polychromasia 1+; RDW Coefficient of Variation 22.2 % (11.5-14.5); RDW Standard Deviation 77.4 fL (36.4-46.3); Red Blood Count 3.51 M/uL (4.2-5.4); Toxic Granulation 1+; Toxic Vacuolation 1+; White Blood Count 24.26 K/uL (4.8-10.8)
[2019-07-10 04:59] LABS: Calcium 9.1 mg/dl (8.5-10.1); Creatinine Clr Calc Pharmacy 12.7 ml/min; Est GFR (African American) 13.6; Est GFR (Non-African American) 11.8; Magnesium 2.7 mg/dl (1.8-2.4); Potassium 5.9 mmol/L (3.5-5.1)
[2019-07-10] MEDS ORDERED: SODIUM BICARB 8.4% INJ 50 MEQ/50 ML SYR IV STA (05:27)
[2019-07-10] MEDS: ALBUMIN 25% 50 ML IV SCH ×2 (05:52→06:22)
--- NOTE | 2019-07-10 05:59 | Electrocardiogram Report ---
Test Reason : Blood Pressure : / mmHG Vent. Rate : 110 BPM Atrial Rate : 000 BPM P-R Int : 000 ms QRS Dur : 212 ms QT Int : 462 ms P-R-T Axes : 000 149 -33 degrees QTc Int : 625 ms Wide QRS rhythm Right bundle branch block Left posterior fascicular block Bifascicular block Inferior infarct , age undetermined Abnormal ECG When compared with ECG of 17-JUN-2019 18:02, No significant change Confirmed by Geraldo Jones ([id number]) on 07/10/2019 5:58:43 AM Referred By: REFERRED SELF Confirmed By:Geraldo Jones
[2019-07-10] MEDS ORDERED: SODIUM CHLORIDE 0.9% 1000ML 1,000 ML IV SCH (06:30)
--- NOTE | 2019-07-10 06:51 | XRay Report ---
XR chest 1V portable CLINICAL HISTORY: acute RF COMPARISON STUDY: Chest radiograph July 09, 2019. FINDINGS: Moderate cardiomegaly is unchanged. There is no evidence for pulmonary edema. There are old bilateral rib fractures. There is no pneumothorax or pleural effusion. No consolidation is identifie d. IMPRESSION: Moderate cardiomegaly. No acute cardiopulmonary findings. ACT 112: Negative or not required by law. Electronically signed by: Andre Chow M.D. 07/10/2019 6:49 AM
[2019-07-10] MEDS ORDERED: MoRPHine SULFATE 4 MG/ML 1 ML CARP\\VIAL IV STA (07:30)
[2019-07-10] MEDS ORDERED: MoRPHine SULFATE 4 MG/ML 1 ML CARP\\VIAL ONE (07:48)
[2019-07-10] MEDS ORDERED: MoRPHine SULF/NSS 250 MG/250 ML BTL IV SCH (08:00)
[2019-07-10] MEDS ORDERED: SODIUM BICARB 8.4% INJ 50 MEQ/50 ML SYR IV ONE (10:42)
[2019-07-10] MEDS ORDERED: DEXTROSE 50% 50 ML SYRINGE IV ONE (10:42)
--- NOTE | 2019-07-10 15:58 | Death Summary ---
Date of Service July 10, 2019 Pronouncement Note Date and Time of Date of : 07/10/19 Time of : 09:20 PCOD Preliminary cause of : Acute renal failure Contributing Factors (1) CHF (congestive heart failure): (2) CKD (chronic kidney disease) stage 4, GFR 15-29 ml/min: (3) Atrial fibrillation with RVR: (4) UTI (urinary tract infection): Summary Additional details: Patient was hospitalized for almost a month with cardiorenal syndrome. Presented with significant volume overload due to combination of diastolic and right heart failure as well as CKD stage IV. Despite increasing doses of Bumex she was unable to remove enough volume. Renal function started to get worse from baseline on 07/08 and 07/09. Discussed with patient and family about the prospect of hemodialysis. The patient stated to me that she would not want hemodialysis. This was confirmed by her son who was the designated POA. Patient rapidly declined on 07/10 in the child support officer, becoming hypotensive and bradycardic. Started on Dopamine drip and placed on BIPAP to maintain her saturations. Family came to the bedside. Discussed that she would not want to be kept alive, she appeared to be uncomfortable. Changed to comfort measures, started morphine drip. Patient with family at the bedside. Full details in discharge summary Additional Data Confirmation of : no pulse, no respirations, no heart sounds and pupils f ixed and dilated Family: at bedside Attending/PCP notified?: Yes Attending physician: Ramesh Soni, DO Was code activated?: No Autopsy requested?: No plans examiner notified?: No Organ bank notified?: No Advance directives: Yes
--- NOTE | 2019-07-10 16:01 | Discharge Summary ---
Date of Service July 10, 2019 Admission HPI Per Admitting Provider This is an 83-year-old female with past medical history of coronary disease status post recent stents, hypertension, diabetes, right-sided heart failure that presents today complaining of shortness of breath and multiple falls. Patient is a decent historian and is alone in the room. Patient tells me that over the past month she has not been feeling well. She has noticed worsening weakness as well as progressive dyspnea on exertion. She does have a history of COPD and uses home oxygen but feels this has not been helping recently. She denies any chest pain but does note some abdominal "tightness ". She has diminished appetite but bowel movements and urination have been normal. She states she is "cold all the time "but denies any overt fevers or chills. She is also complaining worsening lower extremity edema which is now moved into her upper thigh region bilaterally. She does feel she has gained weight but did not weigh herself at home prior. She did note the symptoms have been progressive for several weeks but did not want come to the hospital until after Nina which is why she is presenting on 06/14. Of note, on further questioning the patient states that she had a fall approximately 1 week ago. She fell in the shower. She did strike her head or lose consciousness. She lives with her who had to help her. She did not seek medical attention at that time. At time of evaluation, the patient seems to be in no acute distress. She is on supplemental oxygen. Is unclear what her O2 sat is as she has poor waveform with headband and finger probe. Her blood pressures in the low 100s. Heart rate is in the 50s and appears to be normal sinus rhythm. Sinus bradycardia. To be sinus bradycardia. Principal Diagnosis Acute renal failure on CKD stage IV Discharge Exam no pulse, no respirations, no heart or lung sounds, unresponsive, pupils fixed Discharge Data Allergies Allergy/AdvReac Type Severity Reaction Status Date / Time Insulins Allergy Severe syncope Verified 06/14/19 10:47 Consultations 06/14/19 12:58 ED Decision to Admit Stat 06/14/19 16:10 Consult Cardiology Routine Consult Gastroenterology Routine 06/25/19 15:21 Consult Nephrology Routine 07/09/19 11:52 Consult Palliative Care Routine Procedures Performed Operation Date: 06/15/19 14:30 <No data on this case meets the specified criteria> Hospital Course (1) Acute renal failure: Baseline Cr ~1.7-2.0, eGFR ~20. Cr up to 2.68 on 07/09 after Bumex drip over the weekend BUN up to 54 Cr up further to 3.6 the morning of 07/10, essentially her kidneys were shutting down quickly became hypotensive, bradycardic with HR in the 20's given fluid boluses, started on Dopamine drip her respiratory status became compromised as well, required BIPAP several discussions held with meter reading clerk and daytime hospitalists with her family her son, the NEVILLE, has her living will stating wishes to not be on life support the patient appears to be very uncomfortable on BiPAP, minimal responsiveness decided to place patient on comfort measures, morphine drip started and BiPAP removed patient quickly during her stay there were several conversations held about hemodialysis discussed that HD would become required in the future to keep volume off discussed details of HD such as access, quality of life, strain on her heart which was already bad patient always indicated that she would be against HD on 07/10 discussed these conversations with her son, NEVILLE, and he completely agreed that she would never want HD UTI (urinary tract infection): WBC up to 25k, tachycardia on 07/09 prior urine culture with ESBL E coli UA with > 30k WBC started on Ertapenem on 07/09 but clinical status declined became hypotensive and bradycardic Right heart failure: Patient was converted over to Bumex 3 mg twice daily by mouth On 07/05, placed on bumex drip. Stopped Bumex drip on 07/08. Cr started to rise dramatically with the increased diuresis, up to 2.68 on 07/09 then 3.6 on 07/10 despite being in hospital for a month, there was little improvement in clinical status still with edema palliative consult placed as patient would not be interested in hemodialysis patient in hospital before being placed on hospice HTN (hypertension): BP had been low normal but stable continued metoprolol 25 mg po daily with hold parameters became hypotensive on 07/09, treated with IV fluid bolus more hypotension on 07/10 in the morning requiring fluids and Dopamine CAD (coronary artery disease): Cardiac medications as described above. Of note, patient has a left bundle branch block on EKG, unclear if this is new but not mentioned in previous cardiology notes. - Troponin minimally elevated at 0.07, no chest pain, EKG difficult to read because of RBBB Atrial fibrillation: HR up to 120-110 range on 07/09, started around 0600 likely triggered by low volume, UTI - Continue amiodarone - continue Xarelto - continue metoprolol with hold parameters HR improved with fluid bolus, actually down to the 60's in the evening on 07/09 HR dropped further over night despite holding metoprolol CKD (chronic kidney disease) stage 4, GFR 15-29 ml/min: renal function declined rapidly due to need for diuresis DM (diabetes mellitus): A1c was 6.2% on 06/15/2019. Does not appear to be on any medications at this time. Has noted allergy to insulin. - no longer checking as sugars as they were always stable (2) CKD (chronic kidney disease) stage 4, GFR 15-29 ml/min: (3) UTI (urinary tract infection): (4) Atrial fibrillation with RVR: (5) Right heart failure: (6) HTN (hypertension): (7) CAD (coronary artery disease): (8) Cor pulmonale: (9) CHF (congestive heart failure): Total Time Total Time Spent Total Time Spent (In Minutes): 60 Total Time Includes: Examination of the Patient, Communication With Other Providers and Other (several discussions held with family members) Discharge Plan Discharge Items Patient Disposition: Reason For Visit: SOB,CHRISTIANSON,CHF,ANEMIA Follow-up/Referrals: Dc Gallagher DO [Physician] - 07/05/19 11:20 am (An appointment has been made on your behalf with [facility] Ne[facility]. Please call the office with any questions or concerns. ) Thomas Perez MD [Primary Care Provider] - 07/04/19 10:00 am (A follow-up appointment has been made on your behalf with your PCP. Please call the office with any questions or concerns. ) Daniela Joyner PA-C [Physician Hall Tender] - 07/12/19 10:30 am (Congestive Heart Failure Program Appointment Information Early follow up is essential to managing your heart failure. An appointment has been scheduled for you with the [facility] Heart [facility] Program within 7 days of discharge. Anticipate this visit to be 30-60 minutes long. Please expect a merchant patroller phone call from one of our nurses approximately 48 hours from discharge. They will also be placing an order for lab work to be completed 1-2 days prior to your heart failure follow up appointment. Please be sure to have this done so we can go over the results when you come in. Office Location The cardiology office building is located in front of the hospital at [address] [facility]. Bring the following with you to your follow-up doctor appointments: Please bring your daily weight log any discharge paperwork all of your medication bottles with you to this visit. ) Addtl Grain Blender Provider Instructions: Call your Primary Care doctor if any of the following symptoms or problems start or get worse: * Shortness of breath or difficulty breathing * Wake up at night short of breath * Chest pain * Cough * Swelling of your hands, feet, or legs * More fatigued or tired with your normal activity * Palpitations - sudden fast heart beats WEIGHT * Weigh yourself every morning after using the bathroom. * Use the same scale. * Wear the same amount of clothing. * Write your weight down on a chart. * Call your Primary Care doctor if you gain more than 2-3 pounds in 1-2 days. MEDICATIONS * Use this discharge instruction sheet for medication instructions. * Take your medications at the time your doctor ordered. * Do not skip a dose of your medicines. * If you miss a dose of medicine, take it as soon as possible, but DO NOT DOUBLE A DOSE. * Read your medicine information when you get home. * Know all of the side effects of your medicine. If in doubt, ask your pharmacist * Call your Primary Care doctor's office if you have any side effects. * Be sure all of your doctors know what medicine and herbs you take (including cold, flu, and herbal medicine). Take the following with you to your follow-up doctor appointments: * Weight Chart * Medication List * List of questions Do not drink excessive alcohol, beer or wine. Medications and DC Order Krames/Other Patient Handouts: A1C Admission Data Admit Date/Time: 06/14/19 13:59 Other DC Date/Time DO NOT enter until pt leaves facility: 07/10/19 10:43
--- NOTE | 2019-07-10 21:58 | Electrocardiogram Report ---
Test Reason : Blood Pressure : / mmHG Vent. Rate : 065 BPM Atrial Rate : 065 BPM P-R Int : 174 ms QRS Dur : 030 ms QT Int : 420 ms P-R-T Axes : 000 000 -09 degrees QTc Int : 436 ms Poor data quality, interpretation may be adversely affected Sinus rhythm Indeterminate axis Low voltage QRS Right bundle branch block Inferior infarct Possible Anterior infarct Abnormal ECG When compared with ECG of 09-JUL-2019 11:17, Sinus rhythm has replaced Wide QRS rhythm Vent. rate has decreased BY 45 BPM Confirmed by Geraldo Jones ([id number]) on 07/10/2019 9:58:39 PM Referred By: REFERRED SELF Confirmed By:Geraldo Jones
== END 2019-07-10 10:43 | disposition expired | DRG 291 ==
LOC: ED 09:57 → 2S 13:59 → SUATTDRO 13:59 → 2S 15:33